=== PATIENT | female | born 1945 | race Caucasian/White ===

== ENCOUNTER → 2018-02-23 01:55 | Outpatient (CLI) | payer OTHER, SELFPAY ==
[2018-02-23 17:04] LABS: CREATININE 1.33 mg/dL (0.55-1.02); Estimated GFR 39.33 (mL/min/1.73m2)
[2018-02-23 17:10] LABS: Iron 48 ug/dL (50-175); Total Iron Binding Capacity 293 ug/dL (250-450); Transferrin Sat 16 % (15-50)
[2018-02-23 17:24] LABS: Ferritin 55 ng/mL (8-388)
== END ==
PROVIDERS: PCP Family Medicine; Visit Provider Nurse Practitioner
DX: I10 Essential (primary) hypertension (principal); E11.9 Type 2 diabetes mellitus without complications; D64.9 Anemia, unspecified
CPT/HCPCS: 36415; 82565; 82728; 83036; 83540; 83550; 84132

== ENCOUNTER 2018-03-16 01:38 | Outpatient (CLI) | payer OTHER, SELFPAY ==
[2018-03-16 12:54] LABS: Iron 53 ug/dL (50-175); Total Iron Binding Capacity 293 ug/dL (250-450); Transferrin Sat 18 % (15-50)
[2018-03-16 13:07] LABS: BUN 17 mg/dL (7-18); Estimated GFR 48.96 (mL/min/1.73m2); Ferritin 49 ng/mL (8-388)
== END 2018-03-16 01:58 ==
PROVIDERS: PCP Family Medicine; Visit Provider Family Medicine
DX: N28.9 Disorder of kidney and ureter, unspecified (principal); D64.9 Anemia, unspecified
CPT/HCPCS: 36415; 84520; 82565; 82728; 83540; 83550

== ENCOUNTER 2018-05-16 09:48 | Day surgery (SDC) | payer OTHER, SELFPAY ==
--- NOTE | 2018-05-15 21:05 | POEE_ITS ---
History of Present Illness Chief Complaint: Progressive decreased vision, right eye Narrative: The patient is a 72-year-old female with history of progressive decreased vision in both eyes at distance and near. She has significant difficulty when reading and using the computer. On examination she was noted to have moderate bilateral nuclear and cortical cataracts with visual acuity of 20/50 OD, 20/25 OS. She has significant glare disability, particularly in the right eye. The option of cataract surgery was offered to the patient and she wished to proceed. NOTE: The Chief Complaint, HPI, Past Medical History, Past Surgical History, Family History, Social History, Medications, and complete Ophthalmic Exam with detailed Assessment and Plan have already been documented in the patient's outpatient ophthalmic record and are not covered again in detail here. PFSH Family History Mother Diabetes Essential hypertension Personal history of malignant neoplasm Heart disease Hyperlipidemia Cerebrovascular accident Father No problems noted. Sister Essential hypertension Hyperlipidemia Asthma Brother Alcohol abuse Essential hypertension Personal history of malignant neoplasm Depression Hyperlipidemia Grandfather Personal history of malignant neoplasm Heart disease Asthma Grandfather Heart disease Grandmother Heart disease Grandmother Essential hypertension Heart disease Hyperlipidemia Cerebrovascular accident Brother Diabetes Essential hypertension CHF (congestive heart failure) Heart disease Hyperlipidemia COPD (chronic obstructive pulmonary disease) Asthma Daughter Depression Medical History Nuclear sclerotic cataract of right eye (Acute) Cortical cataract of right eye (Acute) Adenomatous polyp of colon Anxiety Avila esophagus Hyperlipidemia Hypertension Hypothyroid Obesity, Class III, 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 skin cancer Social History marital status: SINGLE current occupational status: employed 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 Smoking/Tobacco Use Status: Never alcohol intake: never substance use type: does not use seatbelt use: always Surgical History Biopsy of breast section Endometrial Biopsy (~2006) Meds Home Medications Medication Instructions Recorded Confirmed Type Cpap 12/24/12 04/29/18 History acetaminophen [Tylenol Extra 500 mg PO PRN 12/24/12 05/11/18 History Strength] aspirin [Ecotrin Low Strength] 81 mg PO DAILY tab-cap 12/24/12 05/11/18 History ibuprofen 2 cap PO PRN tab-cap 12/24/12 05/11/18 History vitamin E (dl, acetate) 400 unit PO DAILY 12/24/12 05/11/18 History cholecalciferol (vitamin D3) 2,000 unit PO DAILY 07/18/15 05/11/18 History [Vitamin D-3] magnesium oxide 400 mg PO DAILY 01/21/16 05/11/18 History blood-glucose meter [Freestyle #1 kit 04/14/17 04/29/18 Rx Lite Meter] levothyroxine 88 mcg PO DAILY #90 tab-cap 07/13/17 05/11/18 Rx omeprazole 20 mg PO BID #180 tab-cap 07/13/17 05/11/18 Rx pravastatin 40 mg PO QHS #90 tab-cap 07/13/17 05/11/18 Rx sertraline 100 mg PO DAILY #90 tab-cap 07/13/17 05/11/18 Rx furosemide 20 mg PO DAILY #90 tab-cap 01/11/18 05/11/18 Rx Lorazepam 1 mg PO HS PRN #90 tab 01/21/18 05/11/18 Clinic multivitamin with iron tablet 1 tab PO DAILY #90 tab 03/17/18 05/11/18 Rx blood sugar diagnostic strips #100 strip 04/13/18 04/29/18 Rx lisinopril 10 mg tablet 10 mg PO DAILY #90 tab-cap 04/13/18 05/11/18 Rx metformin 500 mg tablet 500 mg PO BID #180 tab-cap 04/13/18 05/11/18 Rx ropinirole 1 mg tablet 1 mg PO HS tab 04/13/18 05/11/18 History Allergies Allergy/AdvReac Type Severity Reaction Status Date / Time atorvastatin AdvReac Severe SEVERE LEG Unverified 05/11/18 11:37 PAIN iron AdvReac Severe SEVERE ABD Unverified 05/11/18 11:37 PAIN codeine AdvReac Intermediate H/A Unverified 05/11/18 11:37 Exam OCULAR EXAM:: Visual acuity at distance: Corrected visual acuity 20/50 right eye , 20/25 left eye Pupils: Pupils equal, round, and reactive without afferent pupillary defect IOP: 22 OU Extraocular Motility: Normal Pertinent Slit Lamp Findings: Significant for 2+ nuclear and 2+ cortical cataract OU. Anterior segment otherwise normal. Dilated Funduscopic Examination: Disc cupping is 0.2 OU with good color. The optic nerves have good perfusion and normal color. The retinal vasculature is normal without significant tortuosity or abnormality. The maculas are normal in appearance with normal contour and foveal reflex appropriate for age. The peripheral retina and vitreous are normal. BRIGHTNESS ACUITY TESTING (BAT):: Off right eye 20/50 Low: 20/60 Medium: 20/80 High: 20/200 Assessment and Plan (1) Cortical cataract of right eye: Current visit: No Status: Acute Assessment: Visually significant cataract, right eye. Plan: Cataract extraction with intraocular lens implantation, right eye (2) Nuclear sclerotic cataract of right eye: Current visit: No Status: Acute Assessment: Visually significant cataract, right eye. Plan: Cataract extraction with intraocular lens implantation, right eye Note: NOTE:: The details of the planned surgery, including the risks, indications, limitations,expectations,outcome and possible complications were explained to the patient. The patient understands the complications including, but not limited to: infection, hemorrhage, posterior dislocation of the lens or nuclear fragments which may require the intervention of a vitreoretinal surgeon, possible loss of the eye, or from anesthetic complications. The patient has been made aware of the option of not having surgery, that vision following surgery may not be equal to that prior to surgery, and that the planned surgery may not achieve the intended results. Following this discussion, which the patient appeared to understand, the patient wishes to proceed with cataract surgery with lens implantation of the affected eye to improve and maximize vision.
[2018-05-16 09:52] VITALS: BP 146/76; PULSE 80; RESP 18; TEMP 36.4; O2SAT 97
[2018-05-16] MEDS: Lidocaine 2% Jelly 6 ML SYR (11:00)
[2018-05-16] MEDS: Lidocaine 1% Pres-Free 5 ML VIAL (11:03)
[2018-05-16] MEDS: Balanced Salt Soln.-PLUS 500 ML BAG (11:03)
[2018-05-16] MEDS: Povidone-Iodine Ophth 30 ML BTL (11:12)
--- NOTE | 2018-05-16 11:23 | W.PM.DSUDISC ---
Discharge Plan Discharge Details Reason For Visit: CATARACT OD Attending Provider: Mukesh Prado Primary Care Provider: Navid Avendaño. Home Meds and New Rx's Prescriptions: No Action ropinirole 1 mg tablet 1 mg PO HS RF: 0 metformin 500 mg tablet 500 mg PO BID Qty: 180 RF: 4 lisinopril 10 mg tablet 10 mg PO DAILY Qty: 90 RF: 4 blood sugar diagnostic [FreeStyle Lite Strips] strip 1 strip Miscellaneous DAILY Qty: 100 RF: 4 ibuprofen 200 MG capsule 2 cap PO PRN RF: 0 aspirin [Ecotrin Low Strength] 81 MG tablet,delayed release (DR/EC) 81 mg PO DAILY RF: 0 acetaminophen [Tylenol Extra Strength] 500 MG tablet 500 mg PO PRN RF: 0 vitamin E (dl, acetate) 400 UNIT capsule 400 unit PO DAILY RF: 0 CPAP RF: 0 cholecalciferol (vitamin D3) [Vitamin D3] 2,000 UNIT capsule 2,000 unit PO DAILY RF: 0 magnesium oxide 400 MG capsule 400 mg PO DAILY RF: 0 blood-glucose meter [FreeStyle Lite Meter] 1 EACH kit 1 ea Miscellaneous DAILY Qty: 1 RF: 0 pravastatin 40 MG tablet 40 mg PO QHS Qty: 90 RF: 4 sertraline 100 MG tablet 100 mg PO DAILY Qty: 90 RF: 4 levothyroxine 88 MCG tablet 88 mcg PO DAILY Qty: 90 RF: 4 omeprazole 20 MG capsule,delayed release(DR/EC) 20 mg PO BID Qty: 180 RF: 4 furosemide 20 MG tablet 20 mg PO DAILY Qty: 90 RF: 3 Lorazepam 1 MG tablet 1 mg PO HS PRNQty: 90 RF: 0 multivitamin with iron tablet 1 tab PO DAILY Qty: 90 RF: 3 Discharge Instructions Stand Alone Forms: Post-op Topical Cataract, Nathanael Esquivel (DSU) DS: Diagnosis Discharge Diagnosis (1) Cortical cataract of right eye: Status: Resolved (2) Nuclear sclerotic cataract of right eye: Status: Resolved (3) Status post cataract extraction and insertion of intraocular lens of right eye: Status: Chronic
--- NOTE | 2018-05-16 11:29 | ROE_ITS ---
Date of service: 05/16/18 Time of Service: : Operative Note DATE OF PROCEDURE: 05/16/18 PRE-OP DIAGNOSIS: Cataract, right eye POST-OP DIAGNOSIS: same SURGEON: Mukesh Prado ANESTHESIA: MAC and local (sub-tenon's anesthetic infiltration) PATHOLOGY: none sent COMPLICATIONS: None Patient was transported to: same day Patient's condition: stable Implants: Emiliano and Emil[employer] Vision / [employer] Opt[employer] Tecnis ZCB00 Indications: Progressive decreased vision due to cataract, right eye Procedure Description: CATARACT SURGERY OPERATIVE REPORT PREOPERATIVE DIAGNOSIS: Nuclear/cortical cataract, right eye POSTOPERATIVE DIAGNOSIS: Same OPERATION: Cataract extraction using phacoemulsification with posterior chamber intraocular lens implant, right eye. IOL: IOL Home Support Worker/Model: [employer] Vision / ROSALINO Tecnis ZCB00 IOL Power: + 19.0 diopters IOL Serial Number: [id number] Optic Diameter: 6.0mm Haptic/Overall Diameter: 13.0mm PHACO INFO: [email or web address] Vision System with OZil and Active Fluidics Cumulative Dispersed Energy (CDE): 4.23 seconds SURGEON: Mukesh Prado MD, VANESSA ANESTHESIA: Monitored Anesthesia Care (MAC), with local sub-tenon's anesthetic infiltration COMPLICATIONS: None SPECIMENS: None INDICATIONS FOR PROCEDURE: The patient is a 73-year-old female with history of progressive decreased vision in her right eye with corrected visual acuity of 20/50. She was noted to have a moderate nuclear and cortical cataract in the right eye. The option of cataract surgery was offered to the patient and she felt she was symptomatic enough that she wished to proceed. PROCEDURE: The correct surgical eye was identified and marked as the right eye and the pupil was dilated in the preoperative area using mydriatics, cycloplegics, and NSAIDS (except in aspirin allergic patients). The dilated pupil size was 7.0 mm. Oral sedation was administered in the form of an Imprimis MKO Melt (midazolam 3mg/ketamine 25mg/ondansetron 2mg). The patient was brought to the operating room where cardiopulmonary monitoring was instituted and surgical time-out was performed, confirming the correct operative eye and IOL power. Topical anesthesia was administered and ophthalmic povidone-iodine 5% was instilled into the conjunctival fornices. Lidocaine gel was applied to the cornea and the merritt-ocular area was prepped with Betadine 10% solution and draped in the usual sterile fashion for intraocular surgery. Steri-strips were used to cover the lashes and lid margins and an adhesive eye drape was placed. Care was taken to isolate the lashes and lid margins under the Steri-strips and adhesive eye drape. A lid speculum was placed between the lids of the operative eye and the Johnnie-Tyron operating microscope was maneuvered into position. Lj scissors were then used to make a conjunctival buttonhole approximately 6mm posterior to the limbus in the inferonasal quadrant. Blunt dissection was carried out to expose bare sclera, and a blunt-tipped sub-tenon? s anesthesia cannula was introduced and passed posteriorly along the globe where non-preserved plain lidocaine was injected into posterior sub-Tenon?s space. A sideport knife was used to make a paracentesis port at the 7:00 postion and the anterior chamber was filled with Healon GV. A 2.4mm keratome knife was used to create a half-thickness groove at the limbus and then to construct a three-plane near-clear corneal tunnel extending 2.0mm into clear cornea at the 10:00 position. A flap was raised on the anterior capsule and capsulorhexis forceps were used to complete a continuous curvilinear capsulorhexis of 5.0 mm. Balanced salt solution was then used to perform cortical cleaving hydrodissection and nuclear hydrodelineation until the lens could be freely rotated within the capsular bag. The lens nucleus was then disassembled and removed within the capsular bag and iris plane using phacoemulsification. Residual cortical material was removed using the 45-degree angled silicone I/A tip with 0.3mm port. The posterior capsule was carefully polished to remove as much residual lens epithelial cells as safely possible. The capsular bag was then inflated and the anterior chamber deepened with viscoelastic. The lens implant described above was inserted into the capsular bag using the ROSALINO Tribe Injector. A Kuglen hook was used to dial the IOL into position. Residual viscoelastic was then removed first from posterior to the IOL, then from the anterior chamber using the I/A handpiece. The lens implant was noted to center nicely within the capsular bag. The incisions were stromally hydrated , and the anterior chamber was reformed using BSS. Then 0.4cc of moxifloxacin 1.5mg/ml were injected into the capsular bag and anterior chamber. The incisions were checked with a Weck spear and found to be secure. Several drops of ophthalmic povidone-iodine 5% were then applied to the eye followed by two drops of Imprimis combination moxifloxacin/dexamethasone solution. The drapes were removed and a clear plastic protective eye shield was placed over the eye. The patient was then returned to [facility] Day Surgery in stable condition.
[2018-05-16 11:44] VITALS: BP 119/72; PULSE 80; RESP 20; TEMP 37.4; O2SAT 98
== END 2018-05-16 12:00 | disposition home or self-care (01) ==
LOC: SUR 09:49
PROVIDERS: PCP Family Medicine; Visit Provider Ophthalmology
PROC: (CPT 66984; principal; 2018-05-16 12:30)
DX: H25.811 Combined forms of age-related cataract, right eye (principal); E11.9 Type 2 diabetes mellitus without complications; Z79.84 Long term (current) use of oral hypoglycemic drugs; G47.33 Obstructive sleep apnea (adult) (pediatric); I10 Essential (primary) hypertension
CPT/HCPCS: 66984; V2632

== ENCOUNTER 2018-05-30 06:02 | Day surgery (SDC) | payer OTHER, SELFPAY ==
--- NOTE | 2018-05-28 07:57 | POEE_ITS ---
History of Present Illness Chief Complaint: Progressive decreased vision, left eye Narrative: The patient is a 73-year-old female with history of progressive decreased vision in both eyes at both distance and near. She has significant difficulty reading a computer screen. On examination she was noted to have bilateral nuclear and cortical cataracts with visual acuity of 20/50 in the right eye, 20/30 in the left eye. The option of cataract surgery was offered to the patient and she felt she was significantly symptomatic that she wished to proceed. NOTE: The Chief Complaint, HPI, Past Medical History, Past Surgical History, Family History, Social History, Medications, and complete Ophthalmic Exam with detailed Assessment and Plan have already been documented in the patient's outpatient ophthalmic record and are not covered again in detail here. PFSH Family History Mother Diabetes Essential hypertension Personal history of malignant neoplasm Heart disease Hyperlipidemia Cerebrovascular accident Father No problems noted. Sister Essential hypertension Hyperlipidemia Asthma Brother Alcohol abuse Essential hypertension Personal history of malignant neoplasm Depression Hyperlipidemia Grandfather Personal history of malignant neoplasm Heart disease Asthma Grandfather Heart disease Grandmother Heart disease Grandmother Essential hypertension Heart disease Hyperlipidemia Cerebrovascular accident Brother Diabetes Essential hypertension CHF (congestive heart failure) Heart disease Hyperlipidemia COPD (chronic obstructive pulmonary disease) Asthma Daughter Depression Medical History Cortical cataract of left eye (Acute) Nuclear sclerotic cataract of left eye (Acute) Cortical cataract of right eye (Resolved) Nuclear sclerotic cataract of right eye (Resolved) Adenomatous polyp of colon Anxiety Avila esophagus Hyperlipidemia Hypertension Hypothyroid Obesity, Class III, 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 skin cancer Social History 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 occupational status: employed 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 Smoking/Tobacco Use Status: Never alcohol intake: never substance use type: does not use seatbelt use: always Surgical History Status post cataract extraction and insertion of intraocular lens of right eye ( Chronic 05/16/18) Biopsy of breast section Endometrial Biopsy (~2006) Meds Home Medications Medication Instructions Recorded Confirmed Type Cpap 12/24/12 04/29/18 History acetaminophen [Tylenol Extra 500 mg PO PRN 12/24/12 05/11/18 History Strength] aspirin [Ecotrin Low Strength] 81 mg PO DAILY tab-cap 12/24/12 05/16/18 History ibuprofen 2 cap PO PRN tab-cap 12/24/12 05/11/18 History vitamin E (dl, acetate) 400 unit PO DAILY 12/24/12 05/11/18 History cholecalciferol (vitamin D3) 2,000 unit PO DAILY 07/18/15 05/11/18 History [Vitamin D-3] magnesium oxide 400 mg PO DAILY 01/21/16 05/11/18 History blood-glucose meter [Freestyle #1 kit 04/14/17 04/29/18 Rx Lite Meter] levothyroxine 88 mcg PO DAILY #90 tab-cap 07/13/17 05/16/18 Rx omeprazole 20 mg PO BID #180 tab-cap 07/13/17 05/16/18 Rx pravastatin 40 mg PO QHS #90 tab-cap 07/13/17 05/16/18 Rx sertraline 100 mg PO DAILY #90 tab-cap 07/13/17 05/16/18 Rx furosemide 20 mg PO DAILY #90 tab-cap 01/11/18 05/16/18 Rx Lorazepam 1 mg PO HS PRN #90 tab 01/21/18 05/11/18 Clinic multivitamin with iron tablet 1 tab PO DAILY #90 tab 03/17/18 05/11/18 Rx blood sugar diagnostic strips #100 strip 04/13/18 04/29/18 Rx lisinopril 10 mg tablet 10 mg PO DAILY #90 tab-cap 04/13/18 05/16/18 Rx metformin 500 mg tablet 500 mg PO BID #180 tab-cap 04/13/18 05/16/18 Rx ropinirole 1 mg tablet 1 mg PO HS tab 04/13/18 05/16/18 History Allergies Allergy/AdvReac Type Severity Reaction Status Date / Time atorvastatin AdvReac Severe SEVERE LEG Unverified 05/16/18 09:45 PAIN iron AdvReac Severe SEVERE ABD Unverified 05/16/18 09:45 PAIN codeine AdvReac Intermediate H/A Unverified 05/16/18 09:45 Exam OCULAR EXAM:: Visual acuity at distance: 20/40 right eye 20/30 left eye Pupils: Pupils equal, round, and reactive without afferent pupillary defect IOP: 22 OU Extraocular Motility: Normal Pertinent Slit Lamp Findings: Significant for pupils dilating to 6 mm OU. Well- positioned PCIOL OD with clear posterior capsule. 2+ nuclear/cortical cataract OS. Dilated Funduscopic Examination: Significant for disc cupping of 0.2 OU with good color. The optic nerves have good perfusion and normal color. The retinal vasculature is normal without significant tortuosity or abnormality. The maculas are normal in appearance with normal contour and foveal reflex appropriate for age. The peripheral retina and vitreous are normal. BRIGHTNESS ACUITY TESTING (BAT):: Off left eye 20/30 Low: 20/40 Medium: 20/50 High: 20/80 Assessment and Plan (1) Nuclear sclerotic cataract of left eye: Current visit: No Status: Acute Assessment: Visually significant cataract, left eye. Plan: Cataract extraction with intraocular lens implantation, left eye (2) Cortical cataract of left eye: Current visit: No Status: Acute Assessment: Visually significant cataract, left eye. Plan: Cataract extraction with intraocular lens implantation, left eye Note: NOTE:: The details of the planned surgery, including the risks, indications, limitations,expectations,outcome and possible complications were explained to the patient. The patient understands the complications including, but not limited to: infection, hemorrhage, posterior dislocation of the lens or nuclear fragments which may require the intervention of a vitreoretinal surgeon, possible loss of the eye, or from anesthetic complications. The patient has been made aware of the option of not having surgery, that vision following surgery may not be equal to that prior to surgery, and that the planned surgery may not achieve the intended results. Following this discussion, which the patient appeared to understand, the patient wishes to proceed with cataract surgery with lens implantation of the affected eye to improve and maximize vision.
[2018-05-30 06:10] VITALS: BP 127/67; PULSE 79; RESP 19; TEMP 36.8; O2SAT 95
[2018-05-30] MEDS: Tetracaine 0.5% 4 ML BTL OS ×4 (06:32→07:30)
[2018-05-30] MEDS: Tropicam./Phenyleph. (1/2.5%) 5 ML BTL OS ×3 (06:32→06:50)
[2018-05-30] MEDS: Balanced Salt Soln.-PLUS 500 ML BAG (07:37)
[2018-05-30] MEDS: Lidocaine 2% Jelly 6 ML SYR (07:39)
[2018-05-30] MEDS: Lidocaine 1% Pres-Free 5 ML VIAL (07:40)
[2018-05-30] MEDS: Povidone-Iodine Ophth 30 ML BTL (07:52)
--- NOTE | 2018-05-30 07:58 | W.PM.DSUDISC ---
Discharge Plan Discharge Details Reason For Visit: CATARACT OS Attending Provider: Mukesh Prado Primary Care Provider: Navid Avendaño. Home Meds and New Rx's Prescriptions: No Action ropinirole 1 mg tablet 1 mg PO HS RF: 0 metformin 500 mg tablet 500 mg PO BID Qty: 180 RF: 4 lisinopril 10 mg tablet 10 mg PO DAILY Qty: 90 RF: 4 blood sugar diagnostic [FreeStyle Lite Strips] strip 1 strip Miscellaneous DAILY Qty: 100 RF: 4 ibuprofen 200 MG capsule 2 cap PO PRN RF: 0 aspirin [Ecotrin Low Strength] 81 MG tablet,delayed release (DR/EC) 81 mg PO DAILY RF: 0 acetaminophen [Tylenol Extra Strength] 500 MG tablet 500 mg PO PRN RF: 0 vitamin E (dl, acetate) 400 UNIT capsule 400 unit PO DAILY RF: 0 CPAP RF: 0 cholecalciferol (vitamin D3) [Vitamin D3] 2,000 UNIT capsule 2,000 unit PO DAILY RF: 0 magnesium oxide 400 MG capsule 400 mg PO DAILY RF: 0 blood-glucose meter [FreeStyle Lite Meter] 1 EACH kit 1 ea Miscellaneous DAILY Qty: 1 RF: 0 pravastatin 40 MG tablet 40 mg PO QHS Qty: 90 RF: 4 sertraline 100 MG tablet 100 mg PO DAILY Qty: 90 RF: 4 levothyroxine 88 MCG tablet 88 mcg PO DAILY Qty: 90 RF: 4 omeprazole 20 MG capsule,delayed release(DR/EC) 20 mg PO BID Qty: 180 RF: 4 furosemide 20 MG tablet 20 mg PO DAILY Qty: 90 RF: 3 Lorazepam 1 MG tablet 1 mg PO HS PRNQty: 90 RF: 0 multivitamin with iron tablet 1 tab PO DAILY Qty: 90 RF: 3 Discharge Instructions Stand Alone Forms: Post-op Topical Cataract, Nathanael Esquivel (DSU) DS: Diagnosis Discharge Diagnosis (1) Nuclear sclerotic cataract of left eye: Status: Resolved (2) Cortical cataract of left eye: Status: Resolved (3) Status post cataract extraction and insertion of intraocular lens of left eye: Status: Chronic
--- NOTE | 2018-05-30 07:59 | W.PM.OP ---
Date of service: 05/30/18 Time of Service: 07:59 Operative Note DATE OF PROCEDURE: 05/30/18 PRE-OP DIAGNOSIS: Cataract, left eye POST-OP DIAGNOSIS: same PROCEDURE: Cataract extraction using phacoemulsification with intraocular lens implant, left eye SURGEON: Mukesh Prado ANESTHESIA: MAC and local (sub-tenon's anesthetic infiltration) PATHOLOGY: none sent COMPLICATIONS: None Patient was transported to: same day Patient's condition: stable Implants: Emiliano and Emiliano Vision / [employer] Opt[employer] Tecnis [id number] Indications: Progressive decreased vision due to cataract, left eye Procedure Description: CATARACT SURGERY OPERATIVE REPORT PREOPERATIVE DIAGNOSIS: Nuclear/cortical cataract, left POSTOPERATIVE DIAGNOSIS: Same OPERATION: Cataract extraction using phacoemulsification with posterior chamber intraocular lens implant, left eye. IOL: IOL Social Media Marketer/Model: J&J Vision / ROSALINO Tecnis ZCB00 IOL Power: + 18.50 diopters IOL Serial Number: [id number] Optic Diameter: 6.0mm Haptic/Overall Diameter: 13.0mm PHACO INFO: Cisco LOYAL3urion Vision System with OZil and Active Fluidics Cumulative Dispersed Energy (CDE): 8.2 seconds SURGEON: Mukesh Prado MD, VANESSA ANESTHESIA: Monitored Anesthesia Care (MAC), with local sub-tenon's anesthetic infiltration COMPLICATIONS: None SPECIMENS: None INDICATIONS FOR PROCEDURE: The patient is a 73-year-old female with history of progressive decreased vision in both eyes secondary to the development of bilateral nuclear and cortical cataracts. She has already undergone cataract surgery in her right eye and is doing well postoperatively. She now presents for cataract surgery of the left eye. PROCEDURE: The correct surgical eye was identified and marked as the left eye and the pupil was dilated in the preoperative area using mydriatics and cycloplegics. The dilated pupil size was 7.5 mm. Oral sedation was administered in the form of an Imprimis MKO Melt (midazolam 3mg/ketamine 25mg/ondansetron 2mg). The patient was brought to the operating room where cardiopulmonary monitoring was instituted and surgical time-out was performed, confirming the correct operative eye and IOL power. Topical anesthesia was administered and ophthalmic povidone-iodine 5% was instilled into the conjunctival fornices. Lidocaine gel was applied to the cornea and the merritt-ocular area was prepped with Betadine 10% solution and draped in the usual sterile fashion for intraocular surgery. Steri-strips were used to cover the lashes and lid margins and an adhesive eye drape was placed. Care was taken to isolate the lashes and lid margins under the Steri-strips and adhesive eye drape. A lid speculum was placed between the lids of the operative eye and the Johnnie-Tyron operating microscope was maneuvered into position. Lj scissors were then used to make a conjunctival buttonhole approximately 6mm posterior to the limbus in the inferonasal quadrant. Blunt dissection was carried out to expose bare sclera, and a blunt-tipped sub-tenon?s anesthesia cannula was introduced and passed posteriorly along the globe where non-preserved plain lidocaine was injected into posterior sub-Tenon?s space. A sideport knife was used to make a paracentesis port at the 12:00 postion and the anterior chamber was filled with Healon GV. A 2.4mm keratome knife was used to create a half-thickness groove at the limbus and then to construct a three-plane near-clear corneal tunnel extending 2.0mm into clear cornea at the 3:00 position. A flap was raised on the anterior capsule and capsulorhexis forceps were used to complete a continuous curvilinear capsulorhexis of 5.5 mm. Balanced salt solution was then used to perform cortical cleaving hydrodissection and nuclear hydrodelineation until the lens could be freely rotated within the capsular bag. The lens nucleus was then disassembled and removed within the capsular bag and iris plane using phacoemulsification. Residual cortical material was removed using the 45-degree angled silicone I/A tip with 0.3mm port. The posterior capsule was carefully polished to remove as much residual lens epithelial cells as safely possible. The capsular bag was then inflated and the anterior chamber deepened with viscoelastic. The lens implant described above was inserted into the capsular bag using the ROSALINO [place] Injector. A Kuglen hook was used to dial the IOL into position. Residual viscoelastic was then removed first from posterior to the IOL, then from the anterior chamber using the I/A handpiece. The lens implant was noted to center nicely within the capsular bag. The incisions were stromally hydrated, and the anterior chamber was reformed using BSS. Then 0.4cc of moxifloxacin 1.5mg/ml were injected into the capsular bag and anterior chamber. The incisions were checked with a Weck spear and found to be secure. Several drops of ophthalmic povidone-iodine 5% were then applied to the eye followed by two drops of Imprimis combination moxifloxacin/dexamethasone solution. The drapes were removed and a clear plastic protective eye shield was placed over the eye. The patient was then returned to Same Day Surgery in stable condition.
--- NOTE | 2018-05-30 08:02 | ROE_ITS ---
Date of service: 05/30/18 Time of Service: 07:59 Operative Note DATE OF PROCEDURE: 05/30/18 PRE-OP DIAGNOSIS: Cataract, left eye POST-OP DIAGNOSIS: same PROCEDURE: Cataract extraction using phacoemulsification with intraocular lens implant, left eye SURGEON: Mukesh Prado ANESTHESIA: MAC and local (sub-tenon's anesthetic infiltration) PATHOLOGY: none sent COMPLICATIONS: None Patient was transported to: same day Patient's condition: stable Implants: Emiliano and Emiliano Vision / [employer] Opt[employer] Tecnis ZCB00 Indications: Progressive decreased vision due to cataract, left eye Procedure Description: CATARACT SURGERY OPERATIVE REPORT PREOPERATIVE DIAGNOSIS: Nuclear/cortical cataract, left POSTOPERATIVE DIAGNOSIS: Same OPERATION: Cataract extraction using phacoemulsification with posterior chamber intraocular lens implant, left eye. IOL: IOL Overhead Worker/Model: J&J Vision / ROSALINO Tecnis ZCB00 IOL Power: + 18.50 diopters IOL Serial Number: [id number] Optic Diameter: 6.0mm Haptic/Overall Diameter: 13.0mm PHACO INFO: Cisco Eduoraurion Vision System with OZil and Active Fluidics Cumulative Dispersed Energy (CDE): 8.2 seconds SURGEON: Mukesh Prado MD, VANESSA ANESTHESIA: Monitored Anesthesia Care (MAC), with local sub-tenon's anesthetic infiltration COMPLICATIONS: None SPECIMENS: None INDICATIONS FOR PROCEDURE: The patient is a 73-year-old female with history of progressive decreased vision in both eyes secondary to the development of bilateral nuclear and cortical cataracts. She has already undergone cataract surgery in her right eye and is doing well postoperatively. She now presents for cataract surgery of the left eye. PROCEDURE: The correct surgical eye was identified and marked as the left eye and the pupil was dilated in the preoperative area using mydriatics and cycloplegics. The dilated pupil size was 7.5 mm. Oral sedation was administered in the form of an Imprimis MKO Melt (midazolam 3mg/ketamine 25mg/ ondansetron 2mg). The patient was brought to the operating room where cardiopulmonary monitoring was instituted and surgical time-out was performed, confirming the correct operative eye and IOL power. Topical anesthesia was administered and ophthalmic povidone-iodine 5% was instilled into the conjunctival fornices. Lidocaine gel was applied to the cornea and the merritt-ocular area was prepped with Betadine 10% solution and draped in the usual sterile fashion for intraocular surgery. Steri-strips were used to cover the lashes and lid margins and an adhesive eye drape was placed. Care was taken to isolate the lashes and lid margins under the Steri-strips and adhesive eye drape. A lid speculum was placed between the lids of the operative eye and the Johnnie-Tyron operating microscope was maneuvered into position. Lj scissors were then used to make a conjunctival buttonhole approximately 6mm posterior to the limbus in the inferonasal quadrant. Blunt dissection was carried out to expose bare sclera, and a blunt-tipped sub-tenon? s anesthesia cannula was introduced and passed posteriorly along the globe where non-preserved plain lidocaine was injected into posterior sub-Tenon?s space. A sideport knife was used to make a paracentesis port at the 12:00 postion and the anterior chamber was filled with Healon GV. A 2.4mm keratome knife was used to create a half-thickness groove at the limbus and then to construct a three-plane near-clear corneal tunnel extending 2.0mm into clear cornea at the 3:00 position. A flap was raised on the anterior capsule and capsulorhexis forceps were used to complete a continuous curvilinear capsulorhexis of 5.5 mm. Balanced salt solution was then used to perform cortical cleaving hydrodissection and nuclear hydrodelineation until the lens could be freely rotated within the capsular bag. The lens nucleus was then disassembled and removed within the capsular bag and iris plane using phacoemulsification. Residual cortical material was removed using the 45-degree angled silicone I/A tip with 0.3mm port. The posterior capsule was carefully polished to remove as much residual lens epithelial cells as safely possible. The capsular bag was then inflated and the anterior chamber deepened with viscoelastic. The lens implant described above was inserted into the capsular bag using the ROSALINO [place] Injector. A Kuglen hook was used to dial the IOL into position. Residual viscoelastic was then removed first from posterior to the IOL, then from the anterior chamber using the I/A handpiece. The lens implant was noted to center nicely within the capsular bag. The incisions were stromally hydrated , and the anterior chamber was reformed using BSS. Then 0.4cc of moxifloxacin 1.5mg/ml were injected into the capsular bag and anterior chamber. The incisions were checked with a Weck spear and found to be secure. Several drops of ophthalmic povidone-iodine 5% were then applied to the eye followed by two drops of Imprimis combination moxifloxacin/dexamethasone solution. The drapes were removed and a clear plastic protective eye shield was placed over the eye. The patient was then returned to Same Day Surgery in stable condition.
[2018-05-30 08:25] VITALS: BP 111/69; PULSE 74; RESP 17; TEMP 37.3; O2SAT 98
== END 2018-05-30 08:30 | disposition home or self-care (01) ==
LOC: SUR 06:02
PROVIDERS: PCP Family Medicine; Visit Provider Ophthalmology
PROC: (CPT 66984; principal; 2018-05-30 07:30)
DX: H25.812 Combined forms of age-related cataract, left eye (principal); Z98.41 Cataract extraction status, right eye; Z96.1 Presence of intraocular lens; E11.9 Type 2 diabetes mellitus without complications; Z79.84 Long term (current) use of oral hypoglycemic drugs; G47.33 Obstructive sleep apnea (adult) (pediatric); I10 Essential (primary) hypertension
CPT/HCPCS: 66984; V2632

== ENCOUNTER 2018-07-04 14:55 | Outpatient (REF) | payer OTHER, SELFPAY ==
--- NOTE | 2018-07-04 13:51 | SKI_PTH ---
PATIENT: Myesha Santizo LOC: [facility] U#:[id number] AGE/SX: 73/F ROOM: RE07/04/[address]: Elio Hatfield DO : 1945 BED: DIS: 07/04/2018 SPEC #: [id number] RECD: 07/06/18 12:49 STATUS: CELSO REQ #: [id number] TERA: 07/04/18 13:[address]: Elio Hatfield DEPT: Surgical Specimen RECD BY: Violet Fairchild ENTERED: 07/06/18 12:49 SP TYPE: RACHEL KUMARI DR: Navid Avendaño MD Tissues: 1 - SKIN BIOPSY(SHAVE/PUNCH) Procedures: SKIN LEVEL 4 Comments: [id number]
== END 2018-07-04 15:15 ==
LOC: LBN 14:55
PROVIDERS: PCP Family Medicine; Visit Provider Otolaryngology Otolaryngology/Facial Plastic Surgery
DX: L57.0 Actinic keratosis (principal); L73.8 Other specified follicular disorders; Z85.828 Personal history of other malignant neoplasm of skin
CPT/HCPCS: 88305

== ENCOUNTER 2018-07-07 08:18 | Outpatient (CLI) | payer OTHER, SELFPAY ==
[2018-07-07 12:16] LABS: Hemoglobin A1C 6.9 % (4.5-6.2)
[2018-07-07 12:53] LABS: CREATININE 1.15 mg/dL (0.55-1.02); Estimated GFR 46.38 (mL/min/1.73m2); TSH (W/Ref FT4) 3.03 uIU/mL (0.358-3.74)
== END 2018-07-07 08:38 ==
PROVIDERS: PCP Family Medicine; Visit Provider Family Medicine
DX: E03.9 Hypothyroidism, unspecified (principal); E11.9 Type 2 diabetes mellitus without complications
CPT/HCPCS: 36415; 82565; 83036; 84443

== ENCOUNTER 2018-08-01 00:06 | Outpatient (CLI) | payer OTHER, SELFPAY ==
--- NOTE | 2018-08-01 06:57 | MERGEMPI_ITS ---
*[facility]* *[facility]* [address] [place] [address] Myocardial Perfusion Imaging - SPECT Regadenoson Date of study: 08/01/2018 *PATIENT PRESENTATION* Height: 152.4cm (60in) Blood Pressure: Weight: 105.9kg (233lb) BSA: 2.18m^2 Referring physician: Davi Cummins MD Ordering physician: Navid Avendaño Impressions: Normal perfusion by Tc99m Sestamibi Imaging. Summary: 1. Myocardial perfusion imaging: No myocardial perfusion defects noted. Findings support breast shadow (moderate size / intensity fixed anterior defect, breast shadow on raw images, defect resolves with attenuation correction). 2. The calculated left ventricular ejection fraction after stress: 59%. No left ventricular regional motion abnormality. Indication: R07.9. History: REASON FOR TESTING: PATIENT HAS BEEN HAVING MID STERNAL CHEST PAIN APPROXIMATELY ONCE A MONTH OVER THE LAST 6 MONTHS. SHE DENIES ANY OTHER ASSCOCIATED SYMPTOMS. SHE DENIES CHEST PAIN/PRESSURE UPON ARRIVAL TODAY. SIGNIFICANT PAST MEDICAL HISTORY: BARRETTS ESOPHAGUS. SMOKING STATUS: NEVER EXERCISE ROUTINE: LIMITED ADL'S. Risk factors: Family history of coronary artery disease. Hypertension. Diabetes mellitus. Obesity. Dyslipidemia. Cholesterol: 187mg/dl. HDL: 53mg/dl. LDL: 121mg/dl. Triglycerides: 128mg/dl. ALLERGIES: ATORVASTATIN, IRON, CODEINE. MEDICATIONS: ACETAMINOPHEN 325-650 MG PRN, ASPIRIN 81 MG DAILY, IBUPROFEN 400 MG PRN, VITAMIN E 400 DAILY, VITAMIN D 2000 UNITS DAILY, MAGNESIUM OXIDE 400 MG DAILY, LEVOTHYROXINE 88 MCG DAILY, FUROSEMIDE 20 MG DAILY (HAS NOT USED THIS WEEK), MULTIVITAMIN WITH IRON DAILY, LISINOPRIL 10 MG DAILY, METFORMIN 500 MG DAILY, ROPINIROLE 1 MG HS, FLUOROURACIL 5% TOPICAL CREAM TOPICAL BID, KETORLAC 0.5% OPTHAMLMIC EVERY 4 HOURS, LORAZEPAM 1 MG PRN, OMEPRAZOLE 20 MG DAILY, PRAVASTATIN 40 MG HS, SERTRALINE 100 MG DAILY. Imaging Technique: Protocol: Regadenoson. Acquisition: Gated SPECT; 1 day - rest/stress. The patient was imaged in the supine position. Attenuation correction used. Isotope administration: - Rest. Tc[99m]-sestamibi. Dose: 11.1mCi. Injection time: 11:30 AM. Injection to stress time: 00:45. - Stress. Tc[99m]-sestamibi. Dose: 33mCi. Injection time: 01:05 PM. 1-2 min before end of exercise Baseline ECG: SINUS RHYTHM. HEART RATE 73 BPM. INVERTED T WAVES IN V1. Stress protocol: +--------+--+ + + !Stage !HR!BP (mmHg) !Comments ! +--------+--+ + + !Baseline!73!140/80 (100)! ! +--------+--+ + + !1 min !88!136/78 (97) !Inject Regadenoson.! +--------+--+ + + !3 min !85!140/76 (97) ! ! +--------+--+ + + !6 min !83!142/74 (97) ! ! +--------+--+ + + * Stress results: STRESS TEST ENDED IN 6 MINUTES 37 SECONDS. NORMAL HEART RATE AND BLOOD PRESSURE RESPONSE TO LEXISCAN INJECTION INVERTED T WAVES IN V1 LEAD AT BASELNE AND THROUGHOUT TEST. CHEST PRESSURE OF 4 OUT OF 10, TWO MINUTES AFTER LEXISCAN INJECTION. CHEST PRESSURE DOWN TO 1 OUT OF 10, FIVE MINUTES AFTER LEXISCAN INJECTION. CHEST PRESSURE COMPLETELY GONE 6 MINUTES AFTER LEXISCAN INJECTION. NO ECTOPY NO SIGNIFICANT ST SEGMENT CHANGES AFTER LEXISCAN INJECTION. The rate-pressure product for the peak heart rate and blood pressure was 13324fw Hg/min. Myocardial perfusion: Imaging information: gated. No myocardial perfusion defects noted. Ventricular Function (Wall Motion): The calculated left ventricular ejection fraction after stress: 59%. No left ventricular regional motion abnormality. Study data: Davi Cummins MD supervised and was readily available during the procedure. This study was interpreted by [facility]. Study status: Routine. Consent: The risks, benefits, and alternatives to the procedure were explained to the patient and informed consent was obtained. Procedure: Initial setup. A baseline ECG was recorded. Surface ECG leads and manual cuff blood pressure measurements were monitored. Heart sounds: Normal. Lung sounds: Normal. Regadenoson stress test. Stress testing was performed, with regadenoson by intravenous bolus, for a total dose of 0.4mgover 10.00sec, followed by a 5ml saline flush. The infusion was terminated due to per protocol. Study completion: All catheters inserted during the procedure were removed. The patient tolerated the procedure well and was discharged from the lab. Discharge: The patient left the laboratory in stable condition. Birthdate: Patient birthdate: 1945. Sex: Gender: female. Study date: Study date: 08/01/2018. Study time: 06:57 AM. Electronically signed by Davi Cummins MD 08/01/2018 16:16
[2018-08-01] MEDS: Regadenoson 0.4 MG/5 ML SYR IVP (12:10)
== END 2018-08-01 00:26 ==
PROVIDERS: PCP Family Medicine; Visit Provider Family Medicine
DX: R07.9 Chest pain, unspecified (principal); K22.70 Barrett's esophagus without dysplasia; I10 Essential (primary) hypertension; E11.9 Type 2 diabetes mellitus without complications; E78.5 Hyperlipidemia, unspecified; Z82.49 Family history of ischemic heart disease and other diseases of the circulatory system
CPT/HCPCS: 78452; 93016; 93018; 93017; J2785

== ENCOUNTER 2018-10-20 10:11 | Outpatient (CLI) | payer OTHER, SELFPAY ==
[2018-10-20 11:46] LABS: HGB 11.5 g/dL (12.0-15.5); Mean Corp. HGB Concentration 31.9 g/dL (32.0-36.0); Mean Corpuscular Volume 87.8 fL (80-95); Mean Platelet Volume 10.6 fL (8.0-11.0); Platelet Count 197 x1000/uL (130-400); RBC Distribution Width 14.9 % (11.7-14.6); White Blood Cell Count 7.46 k/cumm (4.4-10.8)
[2018-10-20 12:24] LABS: Hemoglobin A1C 6.9 % (4.5-6.2)
== END 2018-10-20 10:31 ==
PROVIDERS: PCP Family Medicine; Visit Provider Family Medicine
DX: E11.9 Type 2 diabetes mellitus without complications (principal)
CPT/HCPCS: 36415; 85027; 83036

== ENCOUNTER 2018-11-01 00:53 | Outpatient (CLI) | payer OTHER, SELFPAY ==
--- NOTE | 2018-11-01 09:18 | DI.COMBO_ITS ---
SYMPTOM/DIAGNOSIS:LT BREAST LUMP, N63.24 MAMMOGRAMS AND LEFT BREAST ULTRASOUND: Mammograms were interpreted according to the usual protocol including computer analysis with CAD system, tomosynthesis and C view imaging. Comparison is made with prior examinations. Breast density, Category C. The patient has bilateral breast biopsies. In the right breast there has been no change compared to the prior examinations. In the left breast. there has developed a lobulated, soft tissue mass in the lower inner quadrant. A left breast ultrasound was performed. There is a lobulated, hypoechoic vascular mass at the 8 o'clock position of the left breast measuring 2.7 by 2.7 by 1.5 cm. This does appear to correspond to the mammographic and palpable abnormality. IMPRESSION: Category 5, biopsy is recommended of the left breast mass. The findings were discussed with the patient and Dr Avendaño on the date of the examination. MQSA ASSESSMENT OF FINDINGS: Highly suspicious of malignancy. Biopsy should be obtained. Category 5. Patient will receive a letter notifying them of these results. Bi-RADS category C. The breasts are heterogeneously dense, which may obscure small masses.
== END 2018-11-01 01:13 ==
PROVIDERS: PCP Family Medicine; Visit Provider Family Medicine
DX: N63.24 Unspecified lump in the left breast, lower inner quadrant (principal); R92.8 Other abnormal and inconclusive findings on diagnostic imaging of breast
CPT/HCPCS: 76642; 77062; 77066; G0279

== ENCOUNTER 2018-11-11 10:39 | Outpatient (REF) | payer OTHER, SELFPAY ==
--- NOTE | 2018-11-10 09:58 | BREAST_PTH ---
PATIENT: Myesha Santizo LOC: [facility] U#:[id number] AGE/SX: 73/F ROOM: RE11/11/[address]: Minnie Bedolla MD : 1945 BED: DIS: 11/11/2018 SPEC #: [id number] RECD: 11/11/18 12:47 STATUS: CELSO REMaddy #: [id number] TERA: 11/10/18 09:[address]: Minine Bedolla DEPT: Surgical Specimen RECD BY: Violet Fairchild ENTERED: 11/11/18 12:48 SP TYPE: Breast OTHR DR: Navid Avendaño MD Tissues: 1 - BREAST BX NEEDLE Procedures: GROSS AND MICRO LEVEL 4 HERCEPTEST ESTROGEN/PROGESTERONE RECEPTOR IPEX STAIN Comments: [id number]
== END 2018-11-11 10:59 ==
LOC: LBN 10:39
PROVIDERS: PCP Family Medicine; Visit Provider Surgery
DX: C50.312 Malignant neoplasm of lower-inner quadrant of left female breast (principal); Z17.0 Estrogen receptor positive status [ER+]
CPT/HCPCS: 88305; 88360

== ENCOUNTER 2018-12-07 07:16 | Observation (INO) | payer OTHER, SELFPAY ==
[2018-12-07] VITALS (12 sets, daily range): BP systolic 102–126; BP diastolic 50–66; PULSE 67–79; RESP 1–21; TEMP 36.4–36.7; O2SAT 93–95
--- NOTE | 2018-12-07 07:04 | ROE_ITS ---
Date of service: 12/07/18 Time of Service: 12:09 Operative Note DATE OF PROCEDURE: 12/07/18 PRE-OP DIAGNOSIS: Left Invasive Ductal Breast Cancer POST-OP DIAGNOSIS: same PROCEDURE: Left mastectomy with SLN bx SURGEON: Minnie Bedolla CRUSHING MACHINE OPERATOR: Anais Amador ANESTHESIA: GETA (ASA 2) and regional (erector block) ESTIMATED BLOOD LOSS: 50 PATHOLOGY: other (Left Breast and SLN x3, medical skin) COMPLICATIONS: None Patient was transported to: PACU Patient's condition: stable Indications: Mrs. Santizo is a pleasant 73 year old female whom I saw in the office for a Left Breast mass. Bx revealed invasive ductal cancer with involvement of the skin. Risks, benefits and complications were reviewed with her and she wished to proceed. Complications include but are not limited to bleeding, infection, wound dehiscence, flap necrosis, seroma, hematoma, lymphedema and nerve injury. Questions were entertained and answered to her satisfaction and she wished to proceed. No guarantees were given or implied. Findings: 3 hot an enlarged lymph nodes Mobile mass without attachments to the muscle Procedure Description: At 7:30 in the morning the patient was taken to radiology and 2 cc of radioactive isotope was injected into the dermis at the edge of the areola over the mass. The patient was then taken back to [facility] to await surgery. her left Breast was marked. After informed consent was obtained the patient was taken to the PACU for anesthesia to do a erector spinae block on the left side. Once the block was done the patient was taken into the operating room and placed in a supine position. She was placed under general anesthesia and intubated was. SCDs were applied prior to sedating the patient. Next 2 cc of methylene blue was injected into the dermis around the nipple and the area was massaged. Using the [employer] counter the axilla was scanned and a aysha was placed on the skin at the hottest [place]. [place] [id number]. The left chest and right axilla were prepped and draped in a sterile surgical fashion. At this point a timeout was done. The patient's name, date of , antibiotic prophylaxis, DVT prophylaxis, procedure planned and site of procedure were reviewed. Fire risk with assessed. An elliptical incision was marked around the nipple. Next .25% Marcaine mixed with Experel was injected into the dermis along the previously marked area. Using a 10 blade the skin was incised along the marked area. The medial aspect of the incision was grasped with Zenobia's and pulled up and then using cautery a flap was created medially towards the sternum. The dissection was taken down to the fascia. The superior skin was then grasped with the Zenobia's and using cautery another skin flap was created superiorly all the way to the clavicle. Next the flap was created inferiorly to the mammary fold in the same fashion. The Breast tissue was dissected away from the skin medially to the edge of the pectoralis muscle. Bleeding was stopped either with cautery or suture ligation as blood vessels were encountered. The subcutaneous tissue was grasped at the medial corner and the tissue was removed including the fascia off of the pectoralis muscle. Once the entire breast tissue was removed it was marked with a suture medially and placed in formalin. Next the skin was grasped laterally and using hemostat I dissected down into the axilla. The Romario counter was used to identify a total of 3 sentinel lymph node. The count for Lymph node #1 was , for Lymph Node #2 [id number] and for Lymph Node #3 [id number]. A 4th Lymph node was palpated and was large and was removed. The sentinel lymph nodes were placed in separate containers with formalin. The romario counter was then placed back into the axilla and no other hot lymph nodes were identified. Post lymph node 10-second count was less than 10% of the initial count. Some bleeding was noted within the axilla and this was stopped with cautery as well as suture ligation. It was still oozy at this point but I did not want to cauterize close to the chest wall so as to not injure any of the nerves. Tari was injected into the axilla. The pectoralis muscle was then inspected and again small bleeders were stopped with either cautery or suture ligation. 2 g of Tari was then placed over the pectoralis muscle to help with hemostasis. Next a small stab wound was done on the lateral aspect of the wound and a 10 Greek drain was placed and secured with 2-0 Nylon. The superior skin flap was then brought down to the inferior border and it was nice tight fit. There was dog ear noted on the medical side so more skin was removed and sent in a separate [facility] marked medical skin. The skin edges were then approximated with 2-0 Vicryl interrupted sutures in the subcutaneous tissue. The dermis was re-approximated with two, 4-0 Vicryl running sutures. The skin was cleaned and dried. Mastisol and Steri-Strips were applied. 4 x 4's and ABDs were applied to the incision and secured with tape. At this point the patient was woken up extubated and moved over to the [facility]. Patient was taken back to recovery room in stable condition. Sponge instrument needle counts were correct x2 at the end of the case. There were no immediate complications and the patient tolerated the procedure well.
--- NOTE | 2018-12-07 08:40 | HOME_ITS ---
Home Ventilator Equipment Home care company [employer] Reason: Obstructive Sleep Apnea Make: ResMed Model: REMStar Mask type: Nasal mask Mask size: Small Mode: CPAP Settings: Max/min 16/13 Oxygen bleed in (lpm): 0 Condition: Good Date last checked: 12/07/18 Year of last sleep study: Compliance Daily Comments:
[2018-12-07] MEDS: Lactated Ringers 1,000 ML 75 ML IV ×2 (08:55→16:08)
[2018-12-07] MEDS: Bupivacaine LIPOSOME/PF 133 MG/10 ML VIAL IJ ×2 (11:05→13:53)
[2018-12-07] MEDS: Bupivacaine 0.5% Pres-Free 30 ML VIAL (11:05)
--- NOTE | 2018-12-07 11:15 | DI.NM_ITS ---
SYMPTOM/DIAGNOSIS: LT BREAST CA, C50.912 LYMPHOCINTIGRAPHY, INJECTION ONLY: 1.0 millicuries of Sulfur Colloid was administered intradermally by Dr. Bedolla. Patient was followed in the operating room by shielded Gamma probe.
[2018-12-07] MEDS: ceFAZolin 2 GM/50 ML BAG IVPB (11:41)
--- NOTE | 2018-12-07 12:51 | BREAST_PTH ---
PATIENT: Myesha Santizo LOC: U#:[id number] AGE/SX: 73/F ROOM: RE12/07/[address]: Minnie Bedolla MD : 1945 BED: A DIS: 12/08/2018 SPEC #: [id number] RECD: 12/08/18 12:21 STATUS: CELSO REQ #: [id number] TERA: 12/07/18 12:[address]: Minnie Bedolla DEPT: Surgical Specimen RECD BY: Violet Fairchild ENTERED: 12/08/18 12:25 SP TYPE: Breast OTHR DR: Navid Avendaño MD Tissues: 1 - BREAST MASTECTOMY W/NODES 2 - LYMPH NODE RESECTION 3 - LYMPH NODE RESECTION 4 - LYMPH NODE RESECTION 5 - LYMPH NODE RESECTION 6 - SKIN EXCISION WIDE Procedures: GROSS AND MICRO LEVEL 2 GROSS AND MICRO LEVEL 4 GROSS AND MICRO LEVEL 5 Comments: [id number] (ALL SAMPLES RADIOACTIVE)
[2018-12-07] MEDS: Bupivacaine 0.25% Pres-Free 30 ML VIAL (13:52)
[2018-12-07] MEDS: Ondansetron 4 MG/2 ML VIAL IVP (16:08)
[2018-12-07] MEDS: Ketorolac 15 MG/ML VIAL IVP (16:09)
[2018-12-07] MEDS: Normal Saline Flush 10 ML SYR IV (16:09)
--- NOTE | 2018-12-07 18:34 | NUR.NOTE ---
Patient was admitted to the Med/Surg unit from PACU after having left mastectomy done under GA. Patient is AxOX3. Head to toe assessment done and charted. RAYNE drainage insitu to the area draining bloody secretions. Having pain 2/10 and a little nausea as per patient verbalization, analgesics and anti-nausea medication given to relieve discomfort. Patient made comfortable in bed at this time.
--- NOTE | 2018-12-07 19:07 | W.PM.PROGNOT ---
Date of Service Date of service: 12/07/18 Time of Service: 19:08 Assessment and Plan (1) S/P left mastectomy: Current visit: Yes Status: Acute Doing well post-surgery. P\\ Home tomorrow with the RAYNE drain Has appointment on Wednesday with me at 1:15 pm. Subjective Interval history since last seen: Doing well. No complaints. Some soreness in her left axilla when moving her arm. Exam Chest Other: RAYNE with dark blood. 75 cc emptied since surgery. Resp Effort & Inspection: normal respiratory effort Auscultation: clear to auscultation bilaterally Cardio Rate: regular rate Rhythm: regular rhythm Objective Objective Clinical Data: Vital Signs Temperature 97.5 F L 12/07/18 16:50 Temperature Source Temporal Artery Scan 12/07/18 16:50 Pulse 67 12/07/18 16:50 Respiratory Rate 20 12/07/18 16:50 Respiratory Effort Non-Labored 12/07/18 15:20 Respiratory Depth Normal 12/07/18 15:20 Respiratory Pattern Normal 12/07/18 15:20 Blood Pressure 119/66 12/07/18 16:50 Pulse Oximetry 95 12/07/18 17:32 Respiratory End-tidal CO2 34 12/07/18 15:00 Oxygen Delivery Method Nasal Cannula 12/07/18 17:32 Oxygen Flow Rate 2 12/07/18 17:32 Pain Level 2 12/07/18 15:00 Intake & Output 12/06/18 12/07/18 12/07/18 23:59 11:59 23:59 Intake Total 50 / 975 925 / 975 Output Total 350 / 350 Balance 50 / 625 575 / 625 Weight 235 lb 0.204 oz Intake: IV 50 / 905 855 / 905 Injectate 70 / 70 Left Chest 70 / 70 Output: Urine 350 / 350 Other: Urine Color Yellow Green Urine Appearance Clear Clear Comment patient had blue colored urine passed in the tiolet. Emesis Description None Voiding Methods Toilet
[2018-12-07] MEDS: Docusate Sodium 100 MG CAP PO ×2 (20:42→21:14)
[2018-12-07] MEDS: rOPINIRole 1 MG TAB PO (21:13)
[2018-12-07] MEDS: Omeprazole 20 MG CAPCR PO (21:14)
[2018-12-07] MEDS: Pravastatin 40 MG TAB PO (21:14)
[2018-12-07] MEDS: LORazepam 1 MG TAB PO (21:14)
[2018-12-07] MEDS: Acetaminophen 325 MG TAB 650 MG PO (21:14)
[2018-12-07] MEDS: metFORMIN 500 MG TAB PO (21:14)
[2018-12-08 04:00] VITALS: BP 105/56; PULSE 75; RESP 18; TEMP 36.3; O2SAT 95
--- NOTE | 2018-12-08 05:52 | W.PM.PROGNOT ---
Date of Service Date of service: 12/08/18 Time of Service: 05:52 Assessment and Plan (1) S/P left mastectomy: Current visit: Yes Status: Acute A\\ POD#1 s/p Left Mastectomy Doing well P\\ D/C home later today Needs teaching for her RAYNE Follow up on Wednesday at 13:15 Subjective Interval history since last seen: POD#1 s/p left Mastectomy Doing well. Had a good night. NO complaints Exam Chest Other: Left Mastectomy site- incision is c/d/i RAYNE with serosanguinous discharge. Resp Effort & Inspection: normal respiratory effort Auscultation: clear to auscultation bilaterally Cardio Rate: regular rate Rhythm: regular rhythm Objective Objective Clinical Data: Vital Signs Temperature 97.5 F L 12/07/18 16:50 Temperature Source Temporal Artery Scan 12/07/18 16:50 Pulse 67 12/07/18 16:50 Pulse Rhythm Regular 12/07/18 21:26 Respiratory Rate 20 12/07/18 16:50 Respiratory Effort Non-Labored 12/07/18 21:26 Respiratory Depth Normal 12/07/18 21:26 Respiratory Pattern Normal 12/07/18 21:26 Blood Pressure 119/66 12/07/18 16:50 Pulse Oximetry 94 L 12/07/18 21:26 Respiratory End-tidal CO2 34 12/07/18 15:00 Oxygen Delivery Method Room Air 12/07/18 21:26 Oxygen Flow Rate 0 12/07/18 21:26 Pain Level 2 12/07/18 15:00 Intake & Output 12/07/18 12/07/18 12/08/18 11:59 23:59 11:59 Intake Total 50 / 975 925 / 975 1000 / 1000 Output Total 580 / 580 Balance 50 / 395 345 / 395 1000 / 1000 Weight 235 lb 0.204 oz Intake: IV 50 / 905 855 / 905 1000 / 1000 Injectate 70 / 70 Left Chest 70 / 70 Output: Drainage 30 / 30 Left Chest 30 / 30 Urine 550 / 550 Other: Urine Color Yellow Green Urine Appearance Clear Clear Urine Odor None Comment patient had blue colored urine passed in the tiolet. Emesis Description None Voiding Methods Toilet
[2018-12-08] MEDS: Ketorolac 15 MG/ML VIAL IVP (05:59)
[2018-12-08] MEDS: Acetaminophen 325 MG TAB 650 MG PO ×2 (06:00→14:00)
[2018-12-08 06:53] LABS: HCT 31.9 % (36.0-46.0)
[2018-12-08 07:00] VITALS: BP 103/53; PULSE 71; RESP 17; TEMP 36.6; O2SAT 96
[2018-12-08] MEDS: metFORMIN 500 MG TAB PO (07:51)
[2018-12-08] MEDS: Levothyroxine 88 MCG TAB PO (07:51)
[2018-12-08] MEDS: Omeprazole 20 MG CAPCR PO (07:51)
[2018-12-08] MEDS: Docusate Sodium 100 MG CAP PO (07:51)
[2018-12-08] MEDS: Sertraline 50 MG TAB 100 MG PO (07:52)
[2018-12-08] MEDS: Furosemide 20 MG TAB PO (07:52)
[2018-12-08] MEDS: Lisinopril 10 MG TAB PO (07:52)
[2018-12-08] MEDS: Magnesium Oxide 400 MG TAB PO (07:52)
[2018-12-08] MEDS: traMADol 50 MG TAB PO (08:53)
[2018-12-08 15:10] VITALS: BP 108/50; PULSE 70; RESP 16; TEMP 36.7; O2SAT 96
--- NOTE | 2018-12-08 15:28 | PDOC.CMIN ---
Care Management Initial Assess REASON FOR HOSPITALIZATION:: LT Breast CA, Mascectomy PAST MEDICAL HISTORY/PAST SURGICAL HISTORY:: Adenomatous polyp of colon, anxiety, gonzalez esophagus, cancer of L breast, cortical cataract bilat, diabetes, hysterectomy, hyperlipidemia, hypertension, hypothyroid, nuclear sclerotic cataract bilat, obesity, squamous cell skin cancer, uterine cancer, ventral hernia, biopsy of breast, section, endometrial biopsy, left mastectomy PREVIOUS FUNCTIONAL STATUS/SOCIAL/FAMILY SUPPORTS:: Myesha resides alone in [place], [place]. Her daughter, son in law and grandson reside right next door and assist with ADLs. Her grandson earns an allowance providing light house duties such as vaccuuming. Myesha is mostly independent at baseline. CURRENT FUNCTIONAL STATUS:: Myesha is sitting in the chair, her daughter present at her side. She is pleasant in interaction and forthcoming with information. ADVANCE DIRECTIVES:: On file, daughter Geovanna as agent. Has patient been provided with information about the portal?: Yes Did the patient sign up for the portal?: Yes (Previously ) CODE STATUS:: Full Code INSURANCE COVERAGE / FINANCIAL ISSUES:: [employer] [facility] CURRENT HOME/COMMUNITY SERVICES/EQUIPMENT:: No current services or equipment. PRIMARY CARE PHYSICIAN:: Navid Avendaño POTENTIAL DISCHARGE NEEDS:: Coordination of home health orders; RN; dressing changes and OT. Follow up appointments. PATIENT/FAMILY EDUCATION NEEDS:: Review of discharge instructions, discuss Ask Me Three. ANTICIPATED BARRIERS TO DISCHARGE:: None identified at this time. TRANSPORTATION:: Via private vehicle with her daughter. PLAN:: Myesha will return home when ready per MD. She will follow up with surgical services, her PCP and plan of care as prescribed. She will have new orders for [facility]; RN for daily dressing changes and OT for support with personal care. BETH spoke with Casandra at [facility] and faxed orders upon discharge. Myesha will transport via private vehicle with her daughter, Geovanna.
--- NOTE | 2018-12-08 15:44 | PDOC.HHF2F ---
1. Encounter Date and Reason I certify that JENNIFER LAM was seen by Tea Cadet on 12/08/18 and that I had a dxke-qf-ahru encounter with this patient that meets the physician face to face encounter requirements. 2. Clinical Findings Supporting Skilled Need and Homebound Status I certify that home health services are medically necessary, include either intermittent shelter and/or physical/speech therapy, and that this patient is homebound in that absences from the home require considerable and taxing effort and are infrequent or of short duration, or are attributable to the need to receive medical care. [X] (a) Attached documentation from encounter provides clinical findings supporting skilled need and homebound status (including what assistance patient requires to leave the home). The encounter with the patient was in whole, or in part, for the following medical condition, which is the primary reason for home health care: LT BREAST CA, 7:00 DSU, [place] ONLY Pen[facility]iary: for dialy dressing changes and RAYNE care. -empty RAYNE drain daily. Record output amounts and bring to Follow-up appt. w/ Dr. Bedolla as previously scheduled. Use ABD on the wound. minimal tape. use X2 double wide BARBRA wrap for chest compression. change daily. Pt can remove dressing, get in shower and shower normally. than replace dressing. pt is going to require home health aide to assist with shower Physical Therapy: Speech Therapy: Homebound: 3. Certification and Authentication I certify that I composed the above information based on my clinical judgement relating to this patient's medical condition and, if applicable, clinical findings communicated to me by the NPP or inpatient physician who performed the Home Health Referral. All further orders will be obtained through (Community Based Physician - PCP)
--- NOTE | 2018-12-08 15:47 | HHF2F_ITS ---
1. Encounter Date and Reason I certify that JENNIFER LAM was seen by Tea Cadet on 12/08/18 and that I had a anca-aq-ewci encounter with this patient that meets the physician face to face encounter requirements. 2. Clinical Findings Supporting Skilled Need and Homebound Status I certify that home health services are medically necessary, include either intermittent intermediate and/or physical/speech therapy, and that this patient is homebound in that absences from the home require considerable and taxing effort and are infrequent or of short duration, or are attributable to the need to receive medical care. [X] (a) Attached documentation from encounter provides clinical findings supporting skilled need and homebound status (including what assistance patient requires to leave the home). The encounter with the patient was in whole, or in part, for the following medical condition, which is the primary reason for home health care: LT BREAST CA, 7:00 DSU, [place] ONLY Correction: for dialy dressing changes and RAYNE care. -empty RAYNE drain daily. Record output amounts and bring to Follow-up appt. w/ Dr. Bedolla as previously scheduled. Use ABD on the wound. minimal tape. use X2 double wide BARBRA wrap for chest compression. change daily. Pt can remove dressing, get in shower and shower normally. than replace dressing. pt is going to require home health aide to assist with shower Physical Therapy: Speech Therapy: Homebound: 3. Certification and Authentication I certify that I composed the above information based on my clinical judgement relating to this patient's medical condition and, if applicable, clinical findings communicated to me by the NPP or inpatient physician who performed the Home Health Referral. All further orders will be obtained through (Community Based Physician - PCP)
--- NOTE | 2018-12-08 16:02 | DSE_ITS ---
DS: Diagnosis Discharge Diagnosis (1) S/P left mastectomy: Status: Acute Discharge Plan Disposition Patient Disposition: HOME Condition: Improving Discharge Details Reason For Visit: LT BREAST CA, 7:00 DSU, [place] ONLY Admit Date/Time: 12/07/18 07:16 Admit Provider: iMnnie Bedolla Attending Provider: Minnie Bedolla Primary Care Provider: Navid Avendaño Hospital Course Hospital Course: pt underwent mastectomy and SLN bx on 12/08. She was kept overnight for kendrick control/wound care/and general medical care secondary to medical problems. post Op she has done well. today she tolerated a regular diet, is up and moving around. pain is controlled on po meds. We reviewed wound care/activity/warning signs. She has appt set up w/ Dr. Duque Home Meds and New Rx's Prescriptions: New docusate sodium 100 mg capsule 100 mg PO TID Qty: 60 RF: 4 Continued ropinirole 1 mg tablet 1 mg PO HS RF: 0 metformin 500 mg tablet 500 mg PO BID Qty: 180 RF: 4 lisinopril 10 mg tablet 10 mg PO DAILY Qty: 90 RF: 4 FreeStyle Lite Strips strip 1 strip Miscellaneous DAILY Qty: 100 RF: 4 ketorolac 0.5 % drops 1 drp ophthalmic (eye) .q 4 hrs RF: 0 lorazepam 1 mg tablet 1 mg PO HS PRN (Reason: insomnia) Qty: 20 RF: 0 omeprazole 20 mg capsule,delayed release(DR/EC) 20 mg PO BID Qty: 180 RF: 4 pravastatin 40 mg tablet 40 mg PO QHS Qty: 90 RF: 4 sertraline 100 mg tablet 100 mg PO DAILY Qty: 90 RF: 4 ibuprofen 200 MG capsule 2 cap PO PRN RF: 0 aspirin [Ecotrin Low Strength] 81 MG tablet,delayed release (DR/EC) 81 mg PO DAILY RF: 0 acetaminophen [Tylenol Extra Strength] 500 MG tablet 500 mg PO PRN RF: 0 vitamin E (dl, acetate) 400 UNIT capsule 400 unit PO DAILY RF: 0 CPAP RF: 0 cholecalciferol (vitamin D3) [Vitamin D3] 2,000 UNIT capsule 2,000 unit PO DAILY RF: 0 magnesium oxide 400 MG capsule 400 mg PO DAILY RF: 0 blood-glucose meter [FreeStyle Lite Meter] 1 EACH kit 1 ea Miscellaneous DAILY Qty: 1 RF: 0 furosemide 20 MG tablet 20 mg PO DAILY Qty: 90 RF: 3 levothyroxine 88 mcg tablet 88 mcg PO DAILY Qty: 90 RF: 4 tramadol 50 mg tablet 50 mg PO Q8H PRN (Reason: pain) Qty: 14 RF: 0 Eye Drop Tears 1-0.2-0.2 % Drops 2 drp OPHTHALMIC (EYE) TID-QID PRNRF: 0 Discharge Instructions Additional Instructions: Keep an ice bag on the incision. 20 minutes on and 20 minutes off. Ice keeps the swelling down and swelling causes pain. Make sure you wrap the ice pack in a t owel and don't apply directly to the skin. -No driving x1 week or of you are taking pain medications. - -Do Not remove any steri tapes (white tapes) that cover the incision. If you have steri-tapes on your incision, do not use antibacterial ointment. -Follow-up with Dr. Cadet in 1 week. -continue controlled carb diet -no straining to move bowels -pain meds are very constipating: if you do not move your bowels daily take a dose of OTC milk of magnesia -It is ok to shower. No bathe, soaking, swimming or hot tubs -Keep wound clean and dry. Wash incision with soap and water daily. Pat dry, don 't rub. -If you do not have steri-tapes on your incision, than keep the wound covered with a gauze and antibacterial ointment. - You may find that your appetite is smaller. Eat 3-6 small meals throughout the day. It is important to drink lots of water after surgery, 6-10 glasses a day. -If you were given an incentive spirometry (\breathing administrative office clerk\[id number]), continue to do this 10x/hour while awake. -We do want you up walking, at least 5-6 times per day. This is very important to prevent pneumonia and blood clots. You can climb stairs, take them slowly. -No lifting over 5 pounds. -keep a compression garment around the chest. -You may find that you are very tired after surgery- this is normal. -please do not smoke for a minimum of 72 hours after surgery. Stand Alone Forms: Nursing Discharge Form Referrals: Minnie Bedolla MD [ [facility] STAFF PHYSICIAN] - 12/20/18 1:30 pm Activity:: no lifting over 5#'s left hand Equipment/Supplies:: No Equipment Needed Diet:: Carb Counting Discharge Orders Discharge Orders: Discharge Order (Routine); Ordered 12/08/18 Ordered By: Tea Cadet Exam Narrative Exam Narrative: see progress notes DS: Data Vitals/I&O Vitals and I&O: Vital Signs Temperature 36.6 C 12/08/18 07:00 Temperature Source Tympanic 12/08/18 07:00 Pulse 71 12/08/18 07:00 Pulse Rhythm Regular 12/08/18 07:59 Respiratory Rate 17 12/08/18 07:00 Respiratory Effort Non-Labored 12/08/18 07:59 Respiratory Depth Normal 12/08/18 07:59 Respiratory Pattern Normal 12/08/18 07:59 Blood Pressure 103/53 L 12/08/18 07:00 Pulse Oximetry 96 12/08/18 07:00 Respiratory End-tidal CO2 34 12/07/18 15:00 Oxygen Delivery Method Room Air 12/08/18 07:00 Oxygen Flow Rate 0 12/08/18 07:00 Pain Level 2 12/08/18 14:02 Intake & Output 12/07/18 12/08/18 12/08/18 23:59 11:59 23:59 Intake Total 1165 / 1215 1500 / 1740 240 / 1740 Output Total 580 / 580 1000 / 1828 828 / 1828 Balance 585 / 635 500 / -88 -588 / -88 Intake: IV 855 / 905 1000 / 1000 Oral 240 / 240 480 / 720 240 / 720 Injectate 70 / 70 20 / 20 Left Chest 70 / 70 20 / 20 Output: Drainage / Left Chest Urine 550 / 550 1000 / 1800 800 / 1800 Other: Urine Color Green Green Pale Yellow Urine Appearance Clear Clear Clear Urine Odor None None None Comment patient had blue colored urine passed in the tiolet. pt does not have a dowd catheter at this time Stool Size Copious Stool Characteristics Soft Emesis Description None Voiding Methods Toilet Toilet Toilet Labs on day of discharge: Labs from last 24 hours 12/08/18 06:15 Hgb 10.0 L Hct 31.9 L PFSH Medical History Cancer of left breast (Acute ~11/11/18) Uterine cancer (Acute) Ventral hernia (Acute) Diabetes (Chronic) H/O: hysterectomy (Chronic) History of hysterectomy (Chronic) History of hysterectomy (Chronic) Cortical cataract of left eye (Resolved) Cortical cataract of right eye (Resolved) Nuclear sclerotic cataract of left eye (Resolved) Nuclear sclerotic cataract of right eye (Resolved) Adenomatous polyp of colon Anxiety Avila esophagus Hyperlipidemia Hypertension Hypothyroid Obesity, Class III, 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 skin cancer Surgical History S/P left mastectomy (Acute ~12/07/18) Status post cataract extraction and insertion of intraocular lens of right eye (Chronic 05/16/18) Status post cataract extraction and insertion of intraocular lens of left eye (Chronic 05/30/18) Status post cataract extraction and insertion of intraocular lens of right eye (Resolved 05/16/18) Biopsy of breast section Endometrial Biopsy (~2006) Social History Smoking/Tobacco Use Status: Never Alcohol Intake: never Drug use: Never Substance use type: does not use 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
--- NOTE | 2018-12-08 16:19 | INITIAL_ITS ---
Care Management Initial Assess REASON FOR HOSPITALIZATION:: LT Breast CA, Mascectomy PAST MEDICAL HISTORY/PAST SURGICAL HISTORY:: Adenomatous polyp of colon, anxiety, gonzalez esophagus, cancer of L breast, cortical cataract bilat, diabetes, hysterectomy, hyperlipidemia, hypertension, hypothyroid, nuclear sclerotic cataract bilat, obesity, squamous cell skin cancer, uterine cancer, ventral hernia, biopsy of breast, section, endometrial biopsy, left mastectomy PREVIOUS FUNCTIONAL STATUS/SOCIAL/FAMILY SUPPORTS:: Myesha resides alone in [place], [place]. Her daughter, son in law and grandson reside right next door and assist with ADLs. Her grandson earns an allowance providing light house duties such as vaccuuming. Myesha is mostly independent at baseline. CURRENT FUNCTIONAL STATUS:: Myesha is sitting in the chair, her daughter present at her side. She is pleasant in interaction and forthcoming with information. ADVANCE DIRECTIVES:: On file, daughter Geovanna as agent. Has patient been provided with information about the portal?: Yes Did the patient sign up for the portal?: Yes (Previously ) CODE STATUS:: Full Code INSURANCE COVERAGE / FINANCIAL ISSUES:: [employer] [facility] CURRENT HOME/COMMUNITY SERVICES/EQUIPMENT:: No current services or equipment. PRIMARY CARE PHYSICIAN:: Navid Avendaño POTENTIAL DISCHARGE NEEDS:: Coordination of home health orders; RN; dressing changes and OT. Follow up appointments. PATIENT/FAMILY EDUCATION NEEDS:: Review of discharge instructions, discuss Ask Me Three. ANTICIPATED BARRIERS TO DISCHARGE:: None identified at this time. TRANSPORTATION:: Via private vehicle with her daughter. PLAN:: Myesha will return home when ready per MD. She will follow up with surgical services, her PCP and plan of care as prescribed. She will have new orders for [facility]; RN for daily dressing changes and OT for support with personal care. BETH spoke with Casandra at [facility] and faxed orders upon discharge. Myesha will transport via private vehicle with her daughter, Geovanna.
--- NOTE | 2018-12-08 16:19 | PDOC.CMDIS ---
LACE Index Scoring Tool - Questions: Length of Stay (in days): 1 Acuity (Admit via E.D.?): No Comorbidities: Diabetes w/o Complication, Any Tumor E.D. Visits: 0 - Answers: Total Score: 4 Risk of Readmission: Low Risk Care Management Discharge Reason for Hospitalization: LT Breast CA, Mascectomy Discharge Plan: Myesha will return home when ready per MD. She will follow up with surgical services, her PCP and plan of care as prescribed. She will have new orders for [facility]; RN for daily dressing changes and OT for support with personal care. BETH spoke with Casandra at [facility] and faxed orders upon discharge. Myesha will transport via private vehicle with her daughter, Geovanna. Patient/Family Education Needs: Review of instructions, discuss Ask Me Three. Services Needed at Discharge: Home Health Care Services (RN, dressing changes, OT. )
--- NOTE | 2018-12-08 16:22 | CMDISCH_ITS ---
LACE Index Scoring Tool - Questions: Length of Stay (in days): 1 Acuity (Admit via E.D.?): No Comorbidities: Diabetes w/o Complication, Any Tumor E.D. Visits: 0 - Answers: Total Score: 4 Risk of Readmission: Low Risk Care Management Discharge Reason for Hospitalization: LT Breast CA, Mascectomy Discharge Plan: Myesha will return home when ready per MD. She will follow up with surgical services, her PCP and plan of care as prescribed. She will have new orders for [facility]; RN for daily dressing changes and OT for support with personal care. BETH spoke with Casandra at [facility] and faxed orders upon discharge. Myesha will transport via private vehicle with her daughter, Geovanna. Patient/Family Education Needs: Review of instructions, discuss Ask Me Three. Services Needed at Discharge: Home Health Care Services (RN, dressing changes, OT. )
== END 2018-12-08 16:36 | disposition home or self-care (01) ==
LOC: SUR 10:42 → MS 15:12
PROVIDERS: Admitting Provider Surgery; PCP Family Medicine; Visit Provider Surgery
PROC: 0HTU0ZZ Resection of Left Breast, Open Approach (ICD-10-PCS; CPT 19307; 2018-12-07 11:15)
PROC: 0HTU0ZZ Resection of Left Breast, Open Approach (ICD-10-PCS; CPT 19307; 2018-12-07 11:15)
DX: C50.312 Malignant neoplasm of lower-inner quadrant of left female breast (principal); C77.3 Secondary and unspecified malignant neoplasm of axilla and upper limb lymph nodes; Z17.0 Estrogen receptor positive status [ER+]; G47.33 Obstructive sleep apnea (adult) (pediatric); G89.18 Other acute postprocedural pain; Z90.12 Acquired absence of left breast and nipple
CPT/HCPCS: 19307; 38792; 36415; 76942; 88305; 99239; A9541; NC; 85014; 85018; 88302; 88307; 88309; G0378; J0360; J0690; J1100; J1885; J2250; J2405; J3010

== ENCOUNTER 2019-02-21 02:07 | Outpatient (CLI) | payer OTHER, SELFPAY ==
[2019-02-21 10:00] LABS: Abs Immature Grans 0.02 k/cumm (0.0-0.09); Absolute Basophil Count 0.02 k/cumm (0.0-0.2); Absolute Eosinophil Count 0.09 k/cumm (0.0-0.7); Absolute Lymphocyte Count 1.07 k/cumm (1.2-3.4); Absolute Monocyte Count 0.47 k/cumm (0.11-0.7); Absolute Neutrophil Count 4.86 k/cumm (1.2-6.7); Basophils % 0.3; Eosinophils % 1.4; HCT 33.5 % (36.0-46.0); HGB 10.5 g/dL (12.0-15.5); Immature Grans % 0.3; Lymphocytes % 16.4; Mean Corp. HGB Concentration 31.3 g/dL (32.0-36.0); Mean Corpuscular Hemoglobin 27.7 pg (27.0-33.0); Mean Corpuscular Volume 88.4 fL (80-95); Mean Platelet Volume 10.2 fL (8.0-11.0); Monocytes % 7.2; Neutrophils % 74.4; Platelet Count 205 x1000/uL (130-400); RBC 3.79 m/cumm (4.00-5.20); RBC Distribution Width 14.9 % (11.7-14.6); White Blood Cell Count 6.53 k/cumm (4.4-10.8)
[2019-02-21 10:14] LABS: ALT 21 U/L (12-78); AST 9 U/L (15-37); Albumin 3.7 g/dL (3.4-5.0); Alkaline Phosphatase 79 U/L (46-116); Anion Gap 10.4 mmol/L (3-11); BUN 18 mg/dL (7-18); Bilirubin, Total 0.3 mg/dL (0.2-1.0); CO2 27.6 mmol/L (21.0-32.0); CREATININE 1.17 mg/dL (0.55-1.02); Calcium 9.1 mg/dL (8.5-10.1); Chloride 101 mmol/L (98-107); Estimated GFR 45.47 (mL/min/1.73m2); Glucose 121 mg/dL (70-100); Potassium 4.2 mmol/L (3.5-5.1); Sodium 139 mmol/L (136-145); Total Protein 7.4 g/dL (6.4-8.2)
== END 2019-02-21 02:27 ==
PROVIDERS: PCP Family Medicine; Visit Provider Internal Medicine
DX: C50.912 Malignant neoplasm of unspecified site of left female breast (principal)
CPT/HCPCS: 36415; 80053; 85025

== ENCOUNTER 2019-03-14 09:36 | Outpatient (CLI) | payer OTHER, SELFPAY ==
[2019-03-14 09:58] LABS: Abs Immature Grans 0.17 k/cumm (0.0-0.09); Absolute Basophil Count 0.01 k/cumm (0.0-0.2); Absolute Eosinophil Count 0.01 k/cumm (0.0-0.7); Absolute Monocyte Count 0.78 k/cumm (0.11-0.7); Absolute Neutrophil Count 11.68 k/cumm (1.2-6.7); Basophils % 0.1; Eosinophils % 0.1; HCT 31.9 % (36.0-46.0); HGB 10.2 g/dL (12.0-15.5); Immature Grans % 1.2; Lymphocytes % 8.7; Mean Corpuscular Hemoglobin 27.8 pg (27.0-33.0); Mean Corpuscular Volume 86.9 fL (80-95); Mean Platelet Volume 10.3 fL (8.0-11.0); Monocytes % 5.6; Neutrophils % 84.3; Platelet Count 271 x1000/uL (130-400); RBC 3.67 m/cumm (4.00-5.20); RBC Distribution Width 15.6 % (11.7-14.6); White Blood Cell Count 13.85 k/cumm (4.4-10.8)
[2019-03-14 10:09] LABS: ALT 22 U/L (14-59); AST 11 U/L (15-37); Albumin 3.5 g/dL (3.4-5.0); Alkaline Phosphatase 95 U/L (46-116); Anion Gap 12.8 mmol/L (3-11); BUN 25 mg/dL (7-18); Bilirubin, Total 0.3 mg/dL (0.2-1.0); CO2 23.2 mmol/L (21.0-32.0); CREATININE 1.17 mg/dL (0.55-1.02); Calcium 9.2 mg/dL (8.5-10.1); Chloride 103 mmol/L (98-107); Estimated GFR 45.47 (mL/min/1.73m2); Glucose 167 mg/dL (70-100); Potassium 3.8 mmol/L (3.5-5.1); Sodium 139 mmol/L (136-145); Total Protein 7.5 g/dL (6.4-8.2)
[2019-03-15 12:36] LABS: Cancer Ag 15-3 14 U/mL (<30)
== END 2019-03-14 09:56 ==
PROVIDERS: PCP Family Medicine; Visit Provider Internal Medicine
DX: C54.1 Malignant neoplasm of endometrium (principal); C50.912 Malignant neoplasm of unspecified site of left female breast
CPT/HCPCS: 36415; 80053; 86304; 85025; 86300

== ENCOUNTER 2019-03-14 13:26 | Inpatient (IN) | payer OTHER, SELFPAY ==
[2019-03-14] VITALS (53 sets, daily range): BP systolic 105–142; BP diastolic 51–99; PULSE 76–120; RESP 12–31; TEMP 36.5–36.7; O2SAT 89–97
--- NOTE | 2019-03-14 13:56 | W.ED.GENAD ---
Discharge Plan Disposition Patient Disposition: [facility] INPATIENT Discharge Details Chief Complaint: Chest Pain Clinical Impression: Syncope, Leukocytosis, Acute UTI, Hypoxia Admit Date/Time: 03/14/19 19:00 Admit Provider: Andrei Vann Attending Provider: Andrei Vann Primary Care Provider: Navid Avendaño ED Provider: Dragan Barajas Discharge Data Discharge Date/Time-TO BE ENTERED AT DEPARTURE: 03/14/19 19:55 Medical Decision Making <Paresh Espinal NP - Last Filed: 03/15/19 20:17> Patient presenting to the emergency department for chief complaint of syncopal episode. Patient states that she was at the cancer center receiving her second cancer treatment when only minutes into the infusion she felt a warmth all over and stood up due to feeling some irritation in her legs and she blacked out patient does state mild chest pressure after this occurred but otherwise denies any other symptoms. Patient does state that since her first episode of chemo she has had significant amount of diarrhea. Physical exam shows that patient is tachycardic, mildly hypoxic, mild hypotension with blood pressure 110/58. Patient placed upon 2 L of oxygen NC due to hypoxia. otherwise patient in no acute signs of distress and exam is otherwise unremarkable. Plan to check labs, EKG, d-dimer. Pending results patient given IV fluids. Review of labs showing negative troponin, CBC with elevation of WBCs that I feel secondary to steroids given by [facility] center along with chemo, patient is afebrile denies any febrile type symptoms or illness type symptoms, d-dimer elevated to greater than 7500, CMP shows elevated anion gap, increased BUN and creatinine suggestive of some dehydration, elevated glucose, mag of 1.3. BNP is 247. Given elevated d-dimer I do feel that chest CT is required for rule out of PE type event. Review of CTA with radiologist shows no acute pulmonary embolism. Patient reassessed and states some improvement of symptoms. Plan to give additional IV fluids and IV magnesium. ECG Data Interpretation: EKG reviewed with Dr. Liliane Duran attending physician. Shows rate of 100, sinus rhythm, occasional ectopic beats, inverted T waves in aVR and V1 but no signs of STEMI <CURTIS Madsen - Last Filed: 03/14/19 20:27> 18:20 Patient received in signout from Twin Espinal nurse practitioner at shift change. See his note for complete HPI and PE details. In brief, patient is a 73-year-old female who was receiving her second round of chemotherapy today when she developed a syncopal event. Patient states that she suddenly felt very flushed while standing. She sat back in her chair and became unresponsive according to bystanders. She had a blood pressure in the field of 82/50 with a heart rate of 108. She was found unresponsive and foaming at the mouth. After she woke back up she complained of chest heaviness. She came in via ambulance with a normal-appearing EKG sinus tach in the [address] changes. Initial troponin and subsequent serial troponins negative for ACS. Her chest pain has self resolved. She has received a liter of fluids with improvement. She does have a significant leukocytosis of 27,000 along with a questionable urinary tract infection. Her CTA of her chest was negative for PE secondary to an elevated d-dimer. At this time I feel admission is necessary based on the event along with her leukocytosis and urinary tract infection. She is also found to have a hypoxia off oxygen satting into the 88 to 87% range. Her oxygen levels were remain 92 to 93% on 2 L via nasal cannula. No prior oxygen requirement recorded. She denies any significant shortness of breath at rest, however has noted mild dyspnea on exertion over the last several weeks. Case discussed with Dr. Torres who will admit. Blood cultures sent and ceftriaxone 1 g given HPI <Paresh Espinal NP - Last Filed: 03/15/19 20:17> General Mode of arrival: EMS. Date/Time Provider Initiated Documentation: 03/14/19 13:38. Limitations to Documentation: no limitations. Information obtained by: patient, family, RN/MD and RN notes reviewed. History of Present Illness 73 year old F presents to the emergency department with the chief complaint of Syncopal episode, described as mild, with intensity rated at 2. Quality is described as other (Pressure), and is localized to the chest. Patient started experiencing this hour(s) (1) and it has been other (Improving). Patient notes no other symptoms.. Related Data Home Medications Medication Instructions Recorded Confirmed Cpap 12/24/12 01/24/19 acetaminophen [Tylenol Extra 500 mg PO PRN 12/24/12 03/14/19 Strength] aspirin [Ecotrin Low Strength] 81 mg PO DAILY tab-cap 12/24/12 03/14/19 ibuprofen 2 cap PO PRN tab-cap 12/24/12 03/14/19 vitamin E (dl, acetate) 400 unit PO DAILY 12/24/12 03/14/19 cholecalciferol (vitamin D3) 2,000 unit PO DAILY 07/18/15 03/14/19 [Vitamin D3] magnesium oxide 400 mg PO DAILY 01/21/16 03/14/19 blood-glucose meter [FreeStyle #1 kit 04/14/17 01/24/19 Lite Meter] blood sugar diagnostic #100 strip 04/13/18 01/24/19 lisinopril 10 mg tablet 10 mg PO DAILY #90 tab-cap 04/13/18 03/14/19 metformin 500 mg tablet 500 mg PO BID #180 tab-cap 04/13/18 03/14/19 lorazepam 1 mg tablet 1 mg PO HS PRN #20 tab 07/19/18 03/14/19 omeprazole 20 mg capsule,delayed 20 mg PO BID #180 tab-cap 07/19/18 03/14/19 release pravastatin 40 mg tablet 40 mg PO QHS #90 tab-cap 07/19/18 03/14/19 sertraline 100 mg tablet 100 mg PO DAILY #90 tab-cap 07/19/18 03/14/19 levothyroxine 88 mcg tablet 88 mcg PO DAILY #90 tab-cap 09/12/18 03/14/19 Eye Drop Tears 2 drp OPHTHALMIC (EYE) TID-QID PRN 12/01/18 03/14/19 docusate sodium 100 mg capsule 100 mg PO TID cap 01/24/19 03/14/19 furosemide 20 mg tablet 20 mg PO DAILY #90 tab-cap 01/24/19 01/24/19 ropinirole 1 mg tablet 1 mg PO HS tab 01/24/19 03/14/19 Previous Rx's Medication Instructions Recorded blood-glucose meter [FreeStyle #1 kit 04/14/17 Lite Meter] blood sugar diagnostic #100 strip 04/13/18 lisinopril 10 mg tablet 10 mg PO DAILY #90 tab-cap 04/13/18 metformin 500 mg tablet 500 mg PO BID #180 tab-cap 04/13/18 lorazepam 1 mg tablet 1 mg PO HS PRN #20 tab 07/19/18 omeprazole 20 mg capsule,delayed 20 mg PO BID #180 tab-cap 07/19/18 release pravastatin 40 mg tablet 40 mg PO QHS #90 tab-cap 07/19/18 sertraline 100 mg tablet 100 mg PO DAILY #90 tab-cap 07/19/18 levothyroxine 88 mcg tablet 88 mcg PO DAILY #90 tab-cap 09/12/18 furosemide 20 mg tablet 20 mg PO DAILY #90 tab-cap 01/24/19 Allergies Allergy/AdvReac Type Severity Reaction Status Date / Time adhesive tape Allergy Intermediate blistering Verified 03/14/19 13:53 atorvastatin AdvReac Severe SEVERE LEG Unverified 03/14/19 13:53 PAIN iron AdvReac Severe SEVERE ABD Unverified 03/14/19 13:53 PAIN codeine AdvReac Intermediate H/A Unverified 03/14/19 13:53 morphine AdvReac Nausea Verified 03/14/19 13:53 General Stated Complaint: Chest Pain DAVID: 3 Review of Systems <Paresh Espinal NP - Last Filed: 03/15/19 20:17> Constitutional Denies chills and Denies fever(s) Cardiovascular Reports as per HPI, Reports chest pain, Denies chest pain with activity, Reports syncope, Denies irregular heart rhythm, Denies palpitations and Denies dyspnea Respiratory Denies cough, Denies hemoptysis and Denies dyspnea Gastrointestinal Denies abdominal pain, Reports diarrhea, Denies nausea and Denies vomiting Neurologic Reports syncope Endocrine Denies palpitations PFSH <Paresh Espinal NP - Last Filed: 03/15/19 20:17> Medical History Adenomatous polyp of colon Anxiety Avila esophagus Cancer of left breast (Acute ~11/11/18) 11/11/18 DR. SHORT; [place], [place] [facility] [place] 3 WEEKS FOR 12 WEEKS[place]kb Cortical cataract of left eye (Resolved) Cortical cataract of right eye (Resolved) Diabetes (Chronic) H/O: hysterectomy (Chronic) History of hysterectomy (Chronic) History of hysterectomy (Chronic) Hyperlipidemia Hypertension Hypothyroid Nuclear sclerotic cataract of left eye (Resolved) Nuclear sclerotic cataract of right eye (Resolved) Obesity, Class III, 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 skin cancer Uterine cancer (Acute) Ventral hernia (Acute) Surgical History Biopsy of breast x 5-6; cyst aspirated 1993 section Endometrial Biopsy (~2006) NEG S/P left mastectomy (Acute ~12/07/18) with sentinel lymph node biopsy Status post cataract extraction and insertion of intraocular lens of left eye (Chronic 05/30/18) Status post cataract extraction and insertion of intraocular lens of right eye (Resolved 05/16/18) Status post cataract extraction and insertion of intraocular lens of right eye (Chronic 05/16/18) Family History Mother Diabetes Essential hypertension Personal history of malignant neoplasm Stomach Heart disease Hyperlipidemia Stroke Father No problems noted. Sister Essential hypertension Hyperlipidemia Asthma Brother Alcohol abuse Essential hypertension Personal history of malignant neoplasm Esophagus Depression Hyperlipidemia Grandfather Personal history of malignant neoplasm Heart disease Asthma Grandfather Heart disease Grandmother Heart disease Grandmother Essential hypertension Heart disease Hyperlipidemia Stroke Brother Diabetes Essential hypertension CHF (congestive heart failure) Heart disease Hyperlipidemia COPD (chronic obstructive pulmonary disease) Asthma Daughter Depression Social History Smoking/Tobacco Use Status: Never Alcohol Intake: never Drug use: Never Substance use type: does not use 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 Exam <Paresh Espinal NP - Last Filed: 03/15/19 20:17> Const General: cooperative, healthy appearing, comfortable, no acute distress, not diaphoretic and not ill appearing Nutritional Appearance: average body habitus Orientation: alert, awake and oriented x3 Limitations: mental status not altered Neck Neck: normal visual inspection, full ROM, trachea midline, supple and no anterior neck swelling Carotids: normal carotid upstroke and no bruits Chest Chest: normal inspection of the chest Resp Effort & Inspection: normal respiratory effort and able to speak in complete sentences Auscultation: clear to auscultation bilaterally Cardio Jugular venous pressure: no JVD Palpation: normal PMI Rate: tachycardic Rhythm: regular rhythm Heart Sounds: S1 normal, S2 normal, no click, no gallops, no murmurs and no rubs Bruits: no abdominal aortic bruits and no carotid bruits Pulses: radial pulses present bilaterally 2+ GI Inspection: normal to inspection Palpation: soft, no aortic enlargement, no pulsatile masses and nontender Auscultation: normal bowel sounds Skin General skin exam: no rashes or lesions noted Neuro General: alert, awake, oriented x3, tone normal and moves all extremities Course <Paresh Espinal NP - Last Filed: 03/15/19 20:17> Vital Signs Temperature 36.5 C 03/14/19 13:26 Pulse 104 H 03/14/19 13:26 Respiratory Rate 20 03/14/19 13:26 Blood Pressure 110/58 L 03/14/19 13:26 Pulse Oximetry 93 L 03/14/19 13:26 Temperature 36.5 C 03/14/19 13:26 Temperature Source Temporal Artery Scan 03/14/19 13:26 Pulse 104 H 03/14/19 13:26 Respiratory Rate 18 03/14/19 13:35 Respiratory Effort Non-Labored 03/14/19 13:35 Respiratory Depth Normal 03/14/19 13:35 Respiratory Pattern Normal 03/14/19 13:35 Blood Pressure 110/58 L 03/14/19 13:26 Blood Pressure Position Supine 03/14/19 13:26 Pulse Oximetry 93 L 03/14/19 13:26 Oxygen Delivery Method Nasal Cannula 03/14/19 13:26 Oxygen Flow Rate 2 03/14/19 13:26 Pain Level 3 03/14/19 13:35 Sign Out <Paresh Espinal NP - Last Filed: 03/15/19 20:17> Sign Out Data: Sign Out Comment: Patient signed out pending completion of magnesium, additional fluids, second 3-hour troponin. Last updated by Paresh Espinal NP at 03/14/19 16:14
[2019-03-14] MEDS: Normal Saline 500 ML IV ×2 (14:01→15:54)
[2019-03-14 14:06] LABS: Abs Immature Grans 0.93 k/cumm (0.0-0.09); HCT 39.5 % (36.0-46.0); HGB 12.7 g/dL (12.0-15.5); Mean Corp. HGB Concentration 32.2 g/dL (32.0-36.0); Mean Corpuscular Hemoglobin 27.9 pg (27.0-33.0); Mean Corpuscular Volume 86.6 fL (80-95); Mean Platelet Volume 10.9 fL (8.0-11.0); Platelet Count 399 x1000/uL (130-400); RBC 4.56 m/cumm (4.00-5.20)
[2019-03-14 14:12] LABS: White Blood Cell Count 27.25 k/cumm (4.4-10.8)
[2019-03-14 14:14] LABS: INR 1.1 (0.9-1.1); Prothrombin Time 10.8 sec (9.3-11.0)
[2019-03-14 14:17] LABS: ALT 19 U/L (14-59); AST 12 U/L (15-37); Albumin 3.1 g/dL (3.4-5.0); Alkaline Phosphatase 101 U/L (46-116); Anion Gap 12.3 mmol/L (3-11); BUN 26 mg/dL (7-18); Bilirubin, Total 0.3 mg/dL (0.2-1.0); CO2 22.7 mmol/L (21.0-32.0); CREATININE 1.16 mg/dL (0.55-1.02); Calcium 8.7 mg/dL (8.5-10.1); Chloride 102 mmol/L (98-107); Estimated GFR 45.92 (mL/min/1.73m2); Glucose 276 mg/dL (70-100); Magnesium 1.3 mg/dL (1.8-2.4); NT-proBNP 247 pg/mL; Potassium 3.8 mmol/L (3.5-5.1); Sodium 137 mmol/L (136-145); Total Protein 6.9 g/dL (6.4-8.2)
[2019-03-14 14:18] LABS: Troponin I < 0.05 ng/mL (0.00-0.06)
[2019-03-14 14:20] LABS: Absolute Eosinophil Count 0.27 k/cumm (0.0-0.7); Absolute Lymphocyte Count 1.64 k/cumm (1.2-3.4); Absolute Monocyte Count 0.82 k/cumm (0.11-0.7); Absolute Neutrophil Count 22.35 k/cumm (1.2-6.7); Diff Comment Manual Differential; RBC Morphology Normal
[2019-03-14 14:29] LABS: D-Dimer > 7500 ng/mlFEU (<500)
--- NOTE | 2019-03-14 14:57 | DI.CT_ITS ---
SYMPTOMS/DIAGNOSIS: SYNCOPE, ELEVATED D-DIMER CT ANGIOGRAPHY, CHEST: CT angiography was performed with multi slice acquisition and multi planar and 3D reconstruction. CT angiography of the chest was performed with a bolus infusion of 100 cc of Omnipaque 350. Images obtained through the upper abdomen show unremarkable appearance of the visualized portions of the liver and spleen. Heart appears mildly enlarged. There is poor inspiration. No pleural effusion. No pulmonary consolidation. No pulmonary embolism. Thoracic aorta is unremarkable with no aneurysm or dissection. No mediastinal or hilar adenopathy. CONCLUSION: Negative CTA, chest.
[2019-03-14] MEDS: MAGNESIUM SULFATE 2 GM/50 ML BAG IVPB (15:46)
[2019-03-14 17:02] LABS: Bilirubin Negative (Negative); Blood Trace-intact (Negative); Clarity Clear (Clear); Glucose 100 mg/dL (Negative); Ketones Negative (Negative); Leukocyte Esterase Small (Negative); Nitrite Negative (Negative); Specific Gravity <= 1.005 (1.005-1.025); Urobilinogen 0.2 EU/dL (Up TO 0.2)
[2019-03-14 17:15] LABS: Bacteria Moderate HPF (Negative); Crystals Negative HPF (Negative); Epithelial Cells Few HPF (Negative); Mucus Moderate (Negative); Other Cells Few Renal (Negative); WBC 20-50 HPF (0-5)
[2019-03-14 17:16] LABS: C & S Indicated? Yes; Casts Negative LPF (Negative)
[2019-03-14 17:31] LABS: Troponin I < 0.05 ng/mL (0.00-0.06)
[2019-03-14] MEDS: Normal Saline Flush 10 ML SYR IVP ×2 (18:10→20:49)
--- NOTE | 2019-03-14 18:47 | HPE_ITS ---
Date of service: 03/14/19 Time of Service: 18:47 Assessment and Plan (1) Syncope: Current visit: Yes Status: Chronic Multiple issues, but I think a reasonable narrative puts this together as follows: in setting of hypovolemia secondary to poor PO, perhaps exacerbated by emerging UTI, had orthostatic epsisode leading to dominique syncope. This seems to have resolved after IV hydration here. The CP is likely non-cardiac, and the clue about pill dysphagia suggests esophageal spasm.. I cannot at present account for the desaturation noted initially but this seems to have resolved, at least to a good degree. In short, will begin antibiotics, complete r/o enyzmes and watch on telemetry. Reviewed Advance Directives, wishes Full Code. History of Present Illness Chief Complaint: syncope Narrative: 73 female with breast CA. Today while getting chemo felt a warm feeling in her arm as the infusion was starting. She stood up -- thought this might heelp -- and got lightheaded. She sat down and then blacked out. VS at the scene show BP 82/sys with pulse 108 (unclear at what point in the spell these were taken. Patient admits she has not been taking good PO recently. In any case she then developed some pressure in chesst but importantly notes that during this she tried to swallow a pill but felt it was getting stuck. In ER EKG negative and troponin x 2 as well. She was then noted to have leukocytosis (27K) and pyuria, and reports several days of dysuria. Initially here in ER she was desaturating to high 80s off O2, but to my interview she is holdding in 90s off oxygen. She had a negative CTA of chest. She is admited for further management. At present she states she is feeling well except for being a bit tired. Review of Systems Review of Systems All systems reviewed & are unremarkable except as noted in HPI and below PFSH Medical History Adenomatous polyp of colon Anxiety Avila esophagus Cancer of left breast (Acute ~11/11/18) 11/11/18 DR. SHORT; [place], [place] 02/21/19[place] [facility] [place] 3 WEEKS FOR 12 WEEKS[place]kb Cortical cataract of left eye (Resolved) Cortical cataract of right eye (Resolved) Diabetes (Chronic) H/O: hysterectomy (Chronic) History of hysterectomy (Chronic) History of hysterectomy (Chronic) Hyperlipidemia Hypertension Hypothyroid Nuclear sclerotic cataract of left eye (Resolved) Nuclear sclerotic cataract of right eye (Resolved) Obesity, Class III, 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 skin cancer Uterine cancer (Acute) Ventral hernia (Acute) Surgical History Biopsy of breast x 5-6; cyst aspirated 1993 section Endometrial Biopsy (~2006) NEG S/P left mastectomy (Acute ~12/07/18) with sentinel lymph node biopsy Status post cataract extraction and insertion of intraocular lens of left eye (Chronic 05/30/18) Status post cataract extraction and insertion of intraocular lens of right eye (Resolved 05/16/18) Status post cataract extraction and insertion of intraocular lens of right eye (Chronic 05/16/18) Family History Mother Diabetes Essential hypertension Personal history of malignant neoplasm Stomach Heart disease Hyperlipidemia Stroke Father No problems noted. Sister Essential hypertension Hyperlipidemia Asthma Brother Alcohol abuse Essential hypertension Personal history of malignant neoplasm Esophagus Depression Hyperlipidemia Grandfather Personal history of malignant neoplasm Heart disease Asthma Grandfather Heart disease Grandmother Heart disease Grandmother Essential hypertension Heart disease Hyperlipidemia Stroke Brother Diabetes Essential hypertension CHF (congestive heart failure) Heart disease Hyperlipidemia COPD (chronic obstructive pulmonary disease) Asthma Daughter Depression Social History Smoking/Tobacco Use Status: Never Alcohol Intake: never Drug use: Never Substance use type: does not use 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 Meds Home Medications Medication Instructions Recorded Confirmed Type Cpap 12/24/12 01/24/19 History acetaminophen [Tylenol Extra 500 mg PO PRN 12/24/12 03/14/19 History Strength] aspirin [Ecotrin Low Strength] 81 mg PO DAILY tab-cap 12/24/12 03/14/19 History ibuprofen 2 cap PO PRN tab-cap 12/24/12 03/14/19 History vitamin E (dl, acetate) 400 unit PO DAILY 12/24/12 03/14/19 History cholecalciferol (vitamin D3) 2,000 unit PO DAILY 07/18/15 03/14/19 History [Vitamin D3] magnesium oxide 400 mg PO DAILY 01/21/16 03/14/19 History blood-glucose meter [FreeStyle #1 kit 04/14/17 01/24/19 Rx Lite Meter] blood sugar diagnostic #100 strip 04/13/18 01/24/19 Rx lisinopril 10 mg tablet 10 mg PO DAILY #90 tab-cap 04/13/18 03/14/19 Rx metformin 500 mg tablet 500 mg PO BID #180 tab-cap 04/13/18 03/14/19 Rx lorazepam 1 mg tablet 1 mg PO HS PRN #20 tab 07/19/18 03/14/19 Rx omeprazole 20 mg capsule,delayed 20 mg PO BID #180 tab-cap 07/19/18 03/14/19 Rx release pravastatin 40 mg tablet 40 mg PO QHS #90 tab-cap 07/19/18 03/14/19 Rx sertraline 100 mg tablet 100 mg PO DAILY #90 tab-cap 07/19/18 03/14/19 Rx levothyroxine 88 mcg tablet 88 mcg PO DAILY #90 tab-cap 09/12/18 03/14/19 Rx Eye Drop Tears 2 drp OPHTHALMIC (EYE) TID-QID PRN 12/01/18 03/14/19 History docusate sodium 100 mg capsule 100 mg PO TID cap 01/24/19 03/14/19 History furosemide 20 mg tablet 20 mg PO DAILY #90 tab-cap 01/24/19 01/24/19 Rx ropinirole 1 mg tablet 1 mg PO HS tab 01/24/19 03/14/19 History Allergies Allergy/AdvReac Type Severity Reaction Status Date / Time adhesive tape Allergy Intermediate blistering Verified 03/14/19 13:53 atorvastatin AdvReac Severe SEVERE LEG Unverified 03/14/19 13:53 PAIN iron AdvReac Severe SEVERE ABD Unverified 03/14/19 13:53 PAIN codeine AdvReac Intermediate H/A Unverified 03/14/19 13:53 morphine AdvReac Nausea Verified 03/14/19 13:53 Exam Narrative Exam Narrative: 110/51, 79, 26, afebrile. HEENT atraumatic; neck supple; lungs c lear; heart RRR w/o murmur; abdomen soft NT; extremities no pitting edema but feet puffy Results Labs : 03/14/19 13:50 03/14/19 13:50 Laboratory Results - last 24 hr 03/14/19 03/14/19 03/14/19 13:50 13:50 13:50 WBC 27.25 H* D RBC 4.56 Hgb 12.7 D Hct 39.5 D MCV 86.6 MCH 27.9 MCHC 32.2 RDW 16.0 H Plt Count 399 D MPV 10.9 Immature Gran % See Differential Neutrophils % 80.0 Band Neutrophils % 2.0 Lymphocytes % 6.0 Monocytes % 3.0 Eosinophils % 1.0 Basophils % 0.0 Absolute Neutrophils 22.35 H Absolute Lymphocytes 1.64 Absolute Monocytes 0.82 H Absolute Eosinophils 0.27 Absolute Basophils 0.00 Differential Comment Manual differential RBC Morphology Normal PT 10.8 INR 1.1 APTT 21.0 D-Dimer Sodium 137 Potassium 3.8 Chloride 102 Carbon Dioxide 22.7 Anion Gap 12.3 H BUN 26 H Creatinine 1.16 H Estimated GFR/1.73 m2 45.92 Glucose 276 H D Calcium 8.7 Magnesium 1.3 L Total Bilirubin 0.3 AST 12 L ALT 19 Alkaline Phosphatase 101 Troponin I < 0.05 NT-Pro-B Natriuret Pep 247 Total Protein 6.9 Albumin 3.1 L Urine Color Urine Clarity Urine pH Ur Specific [place] Urine Protein Urine Ketones Urine Blood Urine Nitrite Urine Bilirubin Urine Urobilinogen Ur Leukocyte Esterase Urine RBC Urine WBC Ur Epithelial Cells Urine Crystals Urine Bacteria Urine Casts Urine Mucus Urine Other Ur Culture Indicated? Urine Glucose 03/14/19 03/14/19 03/14/19 13:50 16:55 16:58 WBC RBC Hgb Hct MCV MCH MCHC RDW Plt Count MPV Immature Gran % Neutrophils % Band Neutrophils % Lymphocytes % Monocytes % Eosinophils % Basophils % Absolute Neutrophils Absolute Lymphocytes Absolute Monocytes Absolute Eosinophils Absolute Basophils Differential Comment RBC Morphology PT INR APTT D-Dimer > 7500 H Sodium Potassium Chloride Carbon Dioxide Anion Gap BUN Creatinine Estimated GFR/1.73 m2 Glucose Calcium Magnesium Total Bilirubin AST ALT Alkaline Phosphatase Troponin I < 0.05 NT-Pro-B Natriuret Pep Total Protein Albumin Urine Color Yellow Urine Clarity Clear Urine pH 5.0 Ur Specific [place] <= 1.005 Urine Protein 30 H Urine Ketones Negative Urine Blood Trace-intact H Urine Nitrite Negative Urine Bilirubin Negative Urine Urobilinogen 0.2 Ur Leukocyte Esterase Small H Urine RBC 3-5 H Urine WBC 20-50 Ur Epithelial Cells Few Urine Crystals Negative Urine Bacteria Moderate Urine Casts Negative Urine Mucus Moderate Urine Other Few renal Ur Culture Indicated? Yes Urine Glucose 100 Last Vital Signs Temp 36.5 C 03/14/19 13:26 Pulse 79 03/14/19 18:02 Resp 26 H 03/14/19 18:02 BP 110/51 L 03/14/19 18:02 Pulse Ox 93 L 03/14/19 18:02
[2019-03-14] MEDS: cefTRIAXone 1 GM/50 ML BAG IVPB (18:54)
[2019-03-14] MEDS: Lactated Ringers 1,000 ML 80 ML IV (20:48)
[2019-03-14] MEDS: LORazepam 1 MG TAB PO (21:45)
[2019-03-14] MEDS: Pravastatin 40 MG TAB PO (21:46)
[2019-03-14] MEDS: Docusate Sodium 100 MG CAP PO (21:46)
[2019-03-14] MEDS: rOPINIRole 1 MG TAB PO (21:46)
[2019-03-14] MEDS: Omeprazole 20 MG CAPCR PO (21:46)
[2019-03-14 21:57] LABS: Troponin I < 0.05 ng/mL (0.00-0.06)
[2019-03-14] MEDS: Acetaminophen 325 MG TAB 650 MG PO (22:58)
[2019-03-15] VITALS (9 sets, daily range): BP systolic 91–128; BP diastolic 57–72; PULSE 71–80; RESP 16–18; TEMP 36.2–37; O2SAT 92–98
[2019-03-15] MEDS: Acetaminophen 325 MG TAB 650 MG PO ×2 (03:12→20:24)
[2019-03-15 07:26] LABS: HCT 28.9 % (36.0-46.0); HGB 9.1 g/dL (12.0-15.5); Mean Corp. HGB Concentration 31.5 g/dL (32.0-36.0); Mean Corpuscular Hemoglobin 27.7 pg (27.0-33.0); Mean Corpuscular Volume 88.1 fL (80-95); Platelet Count 271 x1000/uL (130-400); RBC 3.28 m/cumm (4.00-5.20); RBC Distribution Width 15.9 % (11.7-14.6); White Blood Cell Count 16.22 k/cumm (4.4-10.8)
[2019-03-15] MEDS: Omeprazole 20 MG CAPCR PO ×2 (08:41→19:59)
[2019-03-15] MEDS: Magnesium Oxide 400 MG TAB PO (08:41)
[2019-03-15] MEDS: Cholecalciferol (Vitamin D3) 1,000 UNIT TAB 2000 UNITS PO (08:41)
[2019-03-15] MEDS: Vitamin E 400 UNITS CAP PO (08:41)
[2019-03-15] MEDS: metFORMIN 500 MG TAB PO ×2 (08:42→17:05)
[2019-03-15] MEDS: Sertraline 50 MG TAB 100 MG PO (08:42)
[2019-03-15] MEDS: Levothyroxine 88 MCG TAB PO (08:42)
[2019-03-15] MEDS: Aspirin E.C. 81 MG TABEC PO (08:42)
--- NOTE | 2019-03-15 09:40 | INITIAL_ITS ---
Care Management Initial Assess REASON FOR HOSPITALIZATION:: Syncope, CP, UTI PAST MEDICAL HISTORY/PAST SURGICAL HISTORY:: Adenomatous polyp of colon, anxiety, gonzalez esophagus, cancer of L breast, cortical cataract bilat, diabetes, hysterectomy, hyperlipidemia, hypertension, hypothyroid, nuclear sclerotic cataract bilat, obesity, squamous cell skin cancer, uterine cancer, ventral hernia, biopsy of breast, section, endometrial biopsy, left mastectomy PREVIOUS FUNCTIONAL STATUS/SOCIAL/FAMILY SUPPORTS:: Myesha resides alone in [place], [place]. Her daughter, son in law and grandson reside right next door and assist with ADLs. Her grandson earns an allowance providing light house duties such as vaccuuming. Myesha is mostly independent at baseline. CURRENT FUNCTIONAL STATUS:: Myesha was sitting up in her chair when CM met with her. She reviewed the events leading up to her admission and her understanding of the treatment plan. She reported anticipating that her chemo treatments would be discontinued though she anticipated beginning radiation treatments soon. She reported her current home situation was going well and she shared no concerns at this time. ADVANCE DIRECTIVES:: On file, daughter Geovanna as agent. Has patient been provided with information about the portal?: Yes Did the patient sign up for the portal?: Yes ((Previously)) CODE STATUS:: Full Code INSURANCE COVERAGE / FINANCIAL ISSUES:: [employer] [place] [email or web address] [facility] CURRENT HOME/COMMUNITY SERVICES/EQUIPMENT:: No current services or equipment. PRIMARY CARE PHYSICIAN:: Navid Avendaño POTENTIAL DISCHARGE NEEDS:: Follow up appointments with PCP. PATIENT/FAMILY EDUCATION NEEDS:: Review discharge instructions, discuss Ask Me Three. ANTICIPATED BARRIERS TO DISCHARGE:: None identified. TRANSPORTATION:: Myesha will transport via private vehicle with her daughter, Geovanna. PLAN:: Myesha will be treated with antibiotics, complete r/o enyzmes and be monitored on telemetry. Myesha will return home when ready per MD. She will follow up with her PCP and plan of care as prescribed. No additional services anticipated at this time. Myesha will transport via private vehicle with her daughterGeovanna.
--- NOTE | 2019-03-15 15:24 | CHAPLAIN ---
Myesha was sitting up in her chair when I visited. She told me about being at [facility] for her chemo treatment and blacking out. She said this was her second of four treatments, every three weeks, and then she'll have radiation. She shared some personal history. Myesha identified her daughter as her support and expects she'll visit later today.
[2019-03-15] MEDS: rOPINIRole 1 MG TAB PO (17:43)
[2019-03-15] MEDS: cefTRIAXone 1 GM/50 ML BAG IV (17:43)
--- NOTE | 2019-03-15 18:52 | PGE_ITS ---
Date of Service Date of service: 03/15/19 Time of Service: 18:52 Assessment and Plan (1) Syncope: Current visit: Yes Status: Chronic Patient was syncope. At this point attributed to dehydration and acute urinary tract infection. She is now well hydrated and has received IV antibiotics. While she had brief dizziness I do not think there is any further concern for repeat syncope. Continue to monitor on telemetry which thus far has shown a sinus rhythm with occasional PVCs. (2) S/P left mastectomy: Current visit: No Status: Acute Patient gets intermittent pain around the left mastectomy incision site. There is nothing there that indicates recurrence or concerning mass. I think there is sensitivity along this incision that is causing her discomfort when the area is palpated. Further follow-up with oncology. I believe she is in line for some follow-up imaging studies in the next few weeks. (3) Diabetes mellitus: Current visit: No Status: Chronic Blood sugars under reasonably good control on present meds. (4) Obstructive sleep apnea syndrome: Current visit: No Status: Acute Home CPAP unit was brought in by her daughter. The plan is for her to wear it tonight as she would usually do so. (5) Restless legs: Current visit: No Status: Acute Patient requesting her Requip be scheduled for 1800 hrs. It does not work if she takes it late at night. (6) Cancer of left breast: Current visit: No Status: Acute Chemotherapy is on hold at this time. Further follow-up is as scheduled at [facility]. Subjective Interval history since last seen: Patient was admitted overnight with an acute syncopal episode x2. Since admission she has been overall feeling better though this evening when she got up to go to the bathroom she briefly felt a bit dizzy. She intermittently does get a discomfort in her left lower chest around the site of her mastectomy scar. Her daughter and grandson were present and had their questions answered. Exam Narrative Exam Narrative: Patient is very pleasant and lucid. She is interactive and coherent. She has no respiratory difficulty. Her lungs sound clear right and left. Her heart sounds are regular. No significant murmur. Her abdomen is quite markedly obese but overall soft and nontender. The left mastectomy site shows a horizontal scar that is well-healed. There is some sensitivity along t he scar site but no nodularity or mass is appreciated. The patient was concerned about a hernia in this region which I did not appreciate. The lower extremities showed trace edema bilaterally. GARTH hose were placed. Neurologically there are no focal deficits. Objective Objective Clinical Data: Abnormal lab results 03/15/19 Range/Units 06:50 WBC 16.22 H D (4.4-10.8) k/cumm RBC 3.28 L (4.00-5.20) m/cumm Hgb 9.1 L D (12.0-15.5) g/dL Hct 28.9 L D (36.0-46.0) % MCHC 31.5 L (32.0-36.0) g/dL RDW 15.9 H (11.7-14.6) % Vital Signs Temperature 36.4 C L 03/15/19 07:20 Temperature Source Tympanic 03/15/19 07:20 Pulse 74 03/15/19 15:00 Pulse Rhythm Regular 03/15/19 16:24 Pulse Strength Normal 03/14/19 18:02 Pulse 77 03/14/19 19:31 Respiratory Rate 18 03/15/19 07:20 Respiratory Effort Non-Labored 03/15/19 16:24 Respiratory Depth Normal 03/15/19 16:24 Respiratory Pattern Normal 03/15/19 16:24 Blood Pressure 108/69 03/15/19 07:20 Blood Pressure Mean 67 03/14/19 19:31 Blood Pressure Position Supine 03/14/19 18:02 Pulse Oximetry 95 03/15/19 17:25 Oxygen Delivery Method Nasal Cannula 03/15/19 17:25 Oxygen Flow Rate 1 03/15/19 17:25 Pain Level 0 03/15/19 07:20 Intake & Output 03/14/19 03/15/19 03/15/19 23:59 11:59 23:59 Intake Total 2059 / 2059 722 / 872 150 / 872 Output Total 300 / 300 850 / 850 Balance 1760 / 1760 -128 / 22 150 / 22 Weight 105.551 kg Intake: IV 1560 / 1560 572 / 572 Oral 500 / 500 150 / 300 150 / 300 Output: Urine 300 / 300 850 / 850 Other: Urine Color Yellow Yellow Urine Appearance Clear Clear Clear Urine Odor Normal Comment pt voiding in toilet; urine not measured at this time Stool Size Large Stool Characteristics Soft Liquid Brown Voiding Methods Toilet Toilet Laboratory Results WBC 16.22 k/cumm (4.4-10.8) H D 03/15/19 06:50 RBC 3.28 m/cumm (4.00-5.20) L 03/15/19 06:50 Hgb 9.1 g/dL (12.0-15.5) L D 03/15/19 06:50 Hct 28.9 % (36.0-46.0) L D 03/15/19 06:50 MCV 88.1 fL (80-95) 03/15/19 06:50 MCH 27.7 pg (27.0-33.0) 03/15/19 06:50 MCHC 31.5 g/dL (32.0-36.0) L 03/15/19 06:50 RDW 15.9 % (11.7-14.6) H 03/15/19 06:50 Plt Count 271 x1000/uL (130-400) D 03/15/19 06:50 MPV 11.0 fL (8.0-11.0) 03/15/19 06:50 Immature Gran % See Differential 03/14/19 13:50 80.0 03/14/19 13:50 2.0 % 03/14/19 13:50 6.0 03/14/19 13:50 3.0 03/14/19 13:50 1.0 03/14/19 13:50 0.0 03/14/19 13:50 Absolute Neutrophils 22.35 k/cumm (1.2-6.7) H 03/14/19 13:50 Absolute Lymphocytes 1.64 k/cumm (1.2-3.4) 03/14/19 13:50 Absolute Monocytes 0.82 k/cumm (0.11-0.7) H 03/14/19 13:50 Absolute Eosinophils 0.27 k/cumm (0.0-0.7) 03/14/19 13:50 Absolute Basophils 0.00 k/cumm (0.0-0.2) 03/14/19 13:50 Manual differential 03/14/19 13:50 RBC Morphology Normal 03/14/19 13:50 PT 10.8 sec (9.3-11.0) 03/14/19 13:50 INR 1.1 (0.9-1.1) 03/14/19 13:50 APTT 21.0 sec (21.0-31.4) 03/14/19 13:50 > 7500 ng/mlFEU (<500) H 03/14/19 13:50 Sodium 137 mmol/L (136-145) 03/14/19 13:50 Potassium 3.8 mmol/L (3.5-5.1) 03/14/19 13:50 Chloride 102 mmol/L (98-107) 03/14/19 13:50 Carbon Dioxide 22.7 mmol/L (21.0-32.0) 03/14/19 13:50 12.3 mmol/L (3-11) H 03/14/19 13:50 BUN 26 mg/dL (7-18) H 03/14/19 13:50 1.16 mg/dL (0.55-1.02) H 03/14/19 13:50 45.92 (mL/min/1.73m2) 03/14/19 13:50 Glucose 276 mg/dL (70-100) H D 03/14/19 13:50 Calcium 8.7 mg/dL (8.5-10.1) 03/14/19 13:50 Magnesium 1.3 mg/dL (1.8-2.4) L 03/14/19 13:50 0.3 mg/dL (0.2-1.0) 03/14/19 13:50 AST 12 U/L (15-37) L 03/14/19 13:50 ALT 19 U/L (14-59) 03/14/19 13:50 101 U/L (46-116) 03/14/19 13:50 < 0.05 ng/mL (0.00-0.06) 03/14/19 21:15 NT-Pro-B Natriuret Pep 247 pg/mL (-299) 03/14/19 13:50 6.9 g/dL (6.4-8.2) 03/14/19 13:50 3.1 g/dL (3.4-5.0) L 03/14/19 13:50 Yellow (Yellow) 03/14/19 16:55 Clear (Clear) 03/14/19 16:55 5.0 (5-8) 03/14/19 16:55 Ur Specific [place] <= 1.005 (1.005-1.025) 03/14/19 16:55 30 mg/dL (Negative) H 03/14/19 16:55 Negative mg/dL (Negative) 03/14/19 16:55 Trace-intact (Negative) H 03/14/19 16:55 Negative (Negative) 03/14/19 16:55 Negative (Negative) 03/14/19 16:55 0.2 EU/dL (Up TO 0.2) 03/14/19 16:55 Ur Leukocyte Esterase Small (Negative) H 03/14/19 16:55 3-5 (0-2) H 03/14/19 16:55 20-50 HPF (0-5) 03/14/19 16:55 Ur Epithelial Cells Few HPF (Negative) 03/14/19 16:55 Negative HPF (Negative) 03/14/19 16:55 Moderate HPF (Negative) 03/14/19 16:55 Negative LPF (Negative) 03/14/19 16:55 Moderate (Negative) 03/14/19 16:55 Few renal (Negative) 03/14/19 16:55 Ur Culture Indicated? Yes 03/14/19 16:55 100 mg/dL (Negative) 03/14/19 16:55
[2019-03-15] MEDS: Docusate Sodium 100 MG CAP PO (19:59)
[2019-03-15] MEDS: Pravastatin 40 MG TAB PO (20:08)
[2019-03-15] MEDS: LORazepam 1 MG TAB PO (20:11)
[2019-03-16 07:29] LABS: HCT 28.8 % (36.0-46.0); HGB 8.8 g/dL (12.0-15.5); Mean Corp. HGB Concentration 30.6 g/dL (32.0-36.0); Mean Corpuscular Hemoglobin 27.4 pg (27.0-33.0); Mean Corpuscular Volume 89.7 fL (80-95); Mean Platelet Volume 10.5 fL (8.0-11.0); Platelet Count 230 x1000/uL (130-400); RBC 3.21 m/cumm (4.00-5.20); RBC Distribution Width 15.9 % (11.7-14.6); White Blood Cell Count 9.38 k/cumm (4.4-10.8)
[2019-03-16 07:36] LABS: Anion Gap 7.8 mmol/L (3-11); BUN 22 mg/dL (7-18); CO2 26.2 mmol/L (21.0-32.0); CREATININE 1.03 mg/dL (0.55-1.02); Calcium 8.3 mg/dL (8.5-10.1); Chloride 106 mmol/L (98-107); Estimated GFR 52.67 (mL/min/1.73m2); Glucose 100 mg/dL (70-100); Potassium 4.4 mmol/L (3.5-5.1); Sodium 140 mmol/L (136-145)
[2019-03-16 07:45] VITALS: BP 113/70; PULSE 79; RESP 21; TEMP 36.5; O2SAT 92
[2019-03-16 07:49] VITALS: PULSE 83
[2019-03-16 07:52] LABS: Absolute Eosinophil Count 0.09 k/cumm (0.0-0.7); Absolute Lymphocyte Count 1.13 k/cumm (1.2-3.4); Absolute Monocyte Count 0.56 k/cumm (0.11-0.7)
[2019-03-16 07:54] LABS: Diff Comment Manual Differential; RBC Morphology Normal
[2019-03-16] MEDS: Vitamin E 400 UNITS CAP PO (08:14)
[2019-03-16] MEDS: Cholecalciferol (Vitamin D3) 1,000 UNIT TAB 2000 UNITS PO (08:15)
[2019-03-16] MEDS: Aspirin E.C. 81 MG TABEC PO (08:15)
[2019-03-16] MEDS: Levothyroxine 88 MCG TAB PO (08:15)
[2019-03-16] MEDS: Omeprazole 20 MG CAPCR PO (08:15)
[2019-03-16] MEDS: Docusate Sodium 100 MG CAP PO (08:15)
[2019-03-16] MEDS: metFORMIN 500 MG TAB PO (08:15)
[2019-03-16] MEDS: Magnesium Oxide 400 MG TAB PO (08:15)
[2019-03-16] MEDS: Sertraline 50 MG TAB 100 MG PO (08:16)
[2019-03-16] MEDS: Acetaminophen 325 MG TAB 650 MG PO (09:39)
[2019-03-16 09:55] LABS: Magnesium 1.7 mg/dL (1.8-2.4)
--- NOTE | 2019-03-16 10:15 | PDOC.CMDIS ---
LACE Index Scoring Tool - Questions: Length of Stay (in days): 2 Acuity (Admit via E.D.?): Yes Comorbidities: Diabetes w/o Complication, Any Tumor E.D. Visits: 1 - Answers: Total Score: 9 Risk of Readmission: Low Risk Care Management Discharge Reason for Hospitalization: Syncope, CP, UTI Discharge Plan: Myesha will return home when ready per MD. She will follow up with her PCP and plan of care as prescribed. No additional services anticipated at this time. Myesha will transport via private vehicle with her daughter, Geovanna. Patient/Family Education Needs: Review discharge instructions, discuss Ask Me Three.
--- NOTE | 2019-03-16 11:23 | W.PM.DS.N ---
Date of service: 03/16/19 Time of Service: 11:24 DS: Diagnosis Discharge Diagnosis (1) Syncope: Start date: 03/16/19 Start time: 11:24 Status: Chronic Asessment and Plan: Resolved at this time. Follow up with oncology as scheduled. Drink plenty of fluids/ (2) S/P left mastectomy: Start date: 03/16/19 Start time: 11:25 Status: Acute (3) Diabetes mellitus: Status: Chronic (4) Obstructive sleep apnea syndrome: Status: Acute (5) Restless legs: Status: Acute (6) Cancer of left breast: Status: Acute Discharge Plan Disposition Patient Disposition: HOME Condition: Good Discharge Details Chief Complaint: Chest Pain Clinical Impression: Syncope, Leukocytosis, Acute UTI, Hypoxia Reason For Visit: SYNCOPE, CP, UTI Admit Date/Time: 03/14/19 19:00 Admit Provider: Andrei Vann Attending Provider: Andrei Vann Primary Care Provider: Navid Avendaño ED Provider: Dragan Barajas [facility] Course Hospital Course: 73 y.o female with breast CA. While getting chemo on 03/14 had a syncopal episode. She was then admitted to [facility] and hydrated with fluids which seemed to resolve her syncope. She also had been having poor PO intake contributing to her hypovolemia. Cardiac workup was negative on serial troponins. EKG preformed with no irregular beats or elevations. She did have leukocytosis and pyuria, with several days of dysuria. CTA of the chest was negative. During the course of the hospital stay she had 3 days of ceftriaxone although Urinalysis yielded small leukocyte esterase, no nitrates 3-5 RBC and 20-50 WBC. Urine culture with less than 10,000 colonies. However given her symptoms she was treated and no longer experiencing urinary sx. She is feeling better today. No dizziness, nausea or vomiting. H/H is stable at 8.8/28.8. She appears and feeling well enough to go home. She has a f/u appt with oncology and will f/u as scheduled. She denies CP, SOB, N/V/D Home Meds and New Rx's Prescriptions: Continued docusate sodium 100 mg capsule 100 mg PO TID RF: 0 furosemide 20 mg tablet 20 mg PO DAILY Qty: 90 RF: 3 metformin 500 mg tablet 500 mg PO BID Qty: 180 RF: 4 lisinopril 10 mg tablet 10 mg PO DAILY Qty: 90 RF: 4 (DME) FreeStyle Lite Strips strip 1 strip Miscellaneous DAILY Qty: 100 RF: 4 ropinirole 1 mg tablet 1 mg PO HS RF: 0 lorazepam 1 mg tablet 1 mg PO HS PRN (Reason: insomnia) Qty: 20 RF: 0 omeprazole 20 mg capsule,delayed release(DR/EC) 20 mg PO BID Qty: 180 RF: 4 pravastatin 40 mg tablet 40 mg PO QHS Qty: 90 RF: 4 sertraline 100 mg tablet 100 mg PO DAILY Qty: 90 RF: 4 ibuprofen 200 MG capsule 2 cap PO PRN RF: 0 aspirin [Ecotrin Low Strength] 81 MG tablet,delayed release (DR/EC) 81 mg PO DAILY RF: 0 acetaminophen [Tylenol Extra Strength] 500 MG tablet 500 mg PO PRN RF: 0 vitamin E (dl, acetate) 400 UNIT capsule 400 unit PO DAILY RF: 0 CPAP RF: 0 cholecalciferol (vitamin D3) [Vitamin D3] 2,000 UNIT capsule 2,000 unit PO DAILY RF: 0 magnesium oxide 400 MG capsule 400 mg PO DAILY RF: 0 (DME) blood-glucose meter [FreeStyle Lite Meter] 1 EACH kit 1 ea Miscellaneous DAILY Qty: 1 RF: 0 levothyroxine 88 mcg tablet 88 mcg PO DAILY Qty: 90 RF: 4 Eye Drop Tears 1-0.2-0.2 % Drops 2 drp OPHTHALMIC (EYE) TID-QID PRNRF: 0 Discharge Instructions Instructions: Syncope (GEN), Acute Abdominal Pain (GEN), Dizziness (GEN) Activity:: Activity as Tolerated Equipment/Supplies:: No Equipment Needed Diet:: As Tolerated Discharge Orders Discharge Orders: Discharge Order (Routine); Ordered 03/16/19 Ordered By: Bibi Feliz DS: Summary Status at Discharge Functional status at discharge: independent ambulation Overall status at discharge: patient is back to baseline Mental Status: mental status grossly normal Speech and Movement: speech and movement normal Mood: congruent mood Affect: normal affect Exam Narrative Exam Narrative: Patient is very pleasant and lucid. She is interactive and coherent. She has no respiratory difficulty. Her lungs sound clear right and left. Her heart sounds are regular. No significant murmur. Her abdomen is quite markedly obese but overall soft and nontender. The left mastectomy site shows a horizontal scar that is well-healed. There is some sensitivity along the scar site but no nodularity or mass is appreciated. The lower extremities showed trace edema bilaterally. GARTH hose were placed. Neurologically there are no focal deficits. Psych Mental Status: mental status grossly normal Speech and Movement: speech and movement normal Mood: congruent mood Affect: normal affect DS: Data Vitals/I&O Vitals and I&O: Vital Signs Temperature 36.5 C 03/16/19 07:45 Temperature Source Tympanic 03/16/19 07:45 Pulse 83 03/16/19 07:49 Pulse Rhythm Regular 03/16/19 08:49 Pulse Strength Normal 03/14/19 18:02 Pulse 77 03/14/19 19:31 Respiratory Rate 21 03/16/19 07:45 Respiratory Effort Non-Labored 03/16/19 08:49 Respiratory Depth Normal 03/16/19 08:49 Respiratory Pattern Normal 03/16/19 08:49 Blood Pressure 113/70 03/16/19 07:45 Blood Pressure Mean 67 03/14/19 19:31 Blood Pressure Position Supine 03/14/19 18:02 Pulse Oximetry 92 L 03/16/19 07:45 Oxygen Delivery Method Room Air 03/16/19 07:45 Oxygen Flow Rate 0 03/16/19 07:45 Pain Level 4 03/16/19 09:39 Intake & Output 03/15/19 03/15/19 03/16/19 11:59 23:59 11:59 Intake Total 722 / 1569 847 / 1569 250 / 250 Output Total 850 / 1350 500 / 1350 Balance -128 / 219 347 / 219 250 / 250 Intake: IV 572 / 1194 622 / 1194 Oral 150 / 375 225 / 375 250 / 250 Output: Urine 850 / 1350 500 / 1350 Other: Urine Color Yellow Yellow Urine Appearance Clear Cloudy Urine Odor Normal Normal Comment pt voiding in toilet; urine not measured at this time Stool Size Large Stool Characteristics Soft Liquid Brown Voiding Methods Toilet Toilet Data Completed and Pending Completed studies during hospitalization [Text1]: Exam(s) a CT:CT chest PE CTA SYMPTOMS/DIAGNOSIS: SYNCOPE, ELEVATED D-DIMER CT ANGIOGRAPHY, CHEST: CT angiography was performed with multi slice acquisition and multi planar and 3D reconstruction. CT angiography of the chest was performed with a bolus infusion of 100 cc of Omnipaque 350. Images obtained through the upper abdomen show unremarkable appearance of the visualized portions of the liver and spleen. Heart appears mildly enlarged. There is poor inspiration. No pleural effusion. No pulmonary consolidation. No pulmonary embolism. Thoracic aorta is unremarkable with no aneurysm or dissection. No mediastinal or hilar adenopathy. CONCLUSION: Negative CTA, chest. [id number]: Total DLP = 0.00 mGy-cm Labs on day of discharge: Labs from last 24 hours 03/16/19 03/16/19 07:00 07:00 WBC 9.38 D RBC 3.21 L Hgb 8.8 L Hct 28.8 L MCV 89.7 MCH 27.4 MCHC 30.6 L RDW 15.9 H Plt Count 230 MPV 10.5 Immature Gran % 0.0 Neutrophils % 81.0 Lymphocytes % 12.0 Monocytes % 6.0 Eosinophils % 1.0 Basophils % 0.0 Absolute Neutrophils 7.60 H Absolute Lymphocytes 1.13 L Absolute Monocytes 0.56 Absolute Eosinophils 0.09 Absolute Basophils 0.00 Differential Comment Manual differential RBC Morphology Normal Sodium 140 Potassium 4.4 Chloride 106 Carbon Dioxide 26.2 Anion Gap 7.8 BUN 22 H Creatinine 1.03 H Estimated GFR/1.73 m2 52.67 Glucose 100 D Calcium 8.3 L Magnesium 1.7 L Preliminary micro results at discharge 03/14/19 18:45 Blood Culture - Preliminary Blood NO GROWTH 24 HOURS [facility] Medical History Adenomatous polyp of colon Anxiety Avila esophagus Cancer of left breast (Acute ~11/11/18) 11/11/18 DR. SHORT; +ER, +CO 02/21/19; [facility] [place];CHEMO TX EVERY 3 WEEKS FOR 12 WEEKS-kb Cortical cataract of left eye (Resolved) Cortical cataract of right eye (Resolved) Diabetes (Chronic) H/O: hysterectomy (Chronic) History of hysterectomy (Chronic) History of hysterectomy (Chronic) Hyperlipidemia Hypertension Hypothyroid Nuclear sclerotic cataract of left eye (Resolved) Nuclear sclerotic cataract of right eye (Resolved) Obesity, Class III, 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 skin cancer Uterine cancer (Acute) Ventral hernia (Acute) Surgical History Biopsy of breast x 5-6; cyst aspirated 1993 section Endometrial Biopsy (~2006) NEG S/P left mastectomy (Acute ~12/07/18) with sentinel lymph node biopsy Status post cataract extraction and insertion of intraocular lens of left eye (Chronic 05/30/18) Status post cataract extraction and insertion of intraocular lens of right eye (Resolved 05/16/18) Status post cataract extraction and insertion of intraocular lens of right eye (Chronic 05/16/18) Family History Mother Diabetes Essential hypertension Personal history of malignant neoplasm Stomach Heart disease Hyperlipidemia Stroke Father No problems noted. Sister Essential hypertension Hyperlipidemia Asthma Brother Alcohol abuse Essential hypertension Personal history of malignant neoplasm Esophagus Depression Hyperlipidemia Grandfather Personal history of malignant neoplasm Heart disease Asthma Grandfather Heart disease Grandmother Heart disease Grandmother Essential hypertension Heart disease Hyperlipidemia Stroke Brother Diabetes Essential hypertension CHF (congestive heart failure) Heart disease Hyperlipidemia COPD (chronic obstructive pulmonary disease) Asthma Daughter Depression Social History Smoking/Tobacco Use Status: Never Alcohol Intake: never Drug use: Never Substance use type: does not use 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
[2019-03-16 12:29] VITALS: BP 107/68; PULSE 83; RESP 18; TEMP 36.9; O2SAT 92
[2019-03-16] MEDS: Magnesium Oxide 400 MG TAB 800 MG PO (12:43)
[2019-03-16 13:25] VITALS: PULSE 82
--- NOTE | 2019-03-16 21:02 | OTIE_ITS ---
Occupational Therapy Notes Inpatient Occupational Therapy Evaluation Date: 03/16/19 Referring Doctor:Davi Corcoran MD OT Orders: 'Limited Ability Precautions: Fall, Contact PATIENT PROFILE/ADMITTING DIAGNOSIS: Pt is a 73 year old female who was admitted to [facility] through the ER for a dx of breast cancer and syncope episode. Past Medical History: Medical History Adenomatous polyp of colon Anxiety Avila esophagus Cancer of left breast (Acute ~11/11/18) 11/11/18 DR. SHORT; +ER, [place] [facility] [place] EVERY 3 WEEKS FOR 12 WEEKS-kb Cortical cataract of left eye (Resolved) Cortical cataract of right eye (Resolved) Diabetes (Chronic) H/O: hysterectomy (Chronic) History of hysterectomy (Chronic) History of hysterectomy (Chronic) Hyperlipidemia Hypertension Hypothyroid Nuclear sclerotic cataract of left eye (Resolved) Nuclear sclerotic cataract of right eye (Resolved) Obesity, Class III, 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 skin cancer Uterine cancer (Acute) Ventral hernia (Acute) Surgical History Biopsy of breast x 5-6; cyst aspirated 1993 section Endometrial Biopsy (~2006) NEG S/P left mastectomy (Acute ~12/07/18) with sentinel lymph node biopsy Status post cataract extraction and insertion of intraocular lens of left eye (Chronic 05/30/18) Status post cataract extraction and insertion of intraocular lens of right eye (Resolved 05/16/18) Status post cataract extraction and insertion of intraocular lens of right eye (Chronic 05/16/18) Social History/Home Situation: Pt reports that she lives alone with her dog and cat in a private home. She notes that her daughter lives at the end of her driveway and (A) her as needed. She has adaptive equipment for LE dressing and states that she uses a cane/FWW for functional mobility. Equipment owned/DME: Shower bench, grab bars, sock aid, shoe horn, dressing stick, cane, FWW SUBJECTIVE: Pt was sitting in bed when OT arrived. She was agreeable to OT session stating that she plans to be discharged today from [facility]. OBJECTIVE: General Observation: Telemetry, pleasant and able to answer questions appropriately Mental Status: A&Ox4 Pain: no c/o pain ROM: RUE AROM WFL L UE AROM WFL STRENGTH: RUE Shoulder flexion 4/5 bicep 5/5, tricep 5/5, certified composites technician is strong and symmetrical LUE Shoulder flexion 4/5 bicep 5/5, tricep 5/5, certified composites technician is strong and symmetrica FUNCTIONAL MOBILITY/ADLS: Transfers with cane Supine-sit (I) Sit-Stand (S) Stand-sit (S) Bed-Chair [employer] Chair-bed [employer] BATHING Bathing UE Standing at sink (I) washing face, (B) UE, underarms Bathing LE NT DRESSING Dressing UE Standing at sink (I) don and doff [facility] gown with min (A) for telemetry unit Dressing LE Sitting on side of bed pt was able to (I) don and doff (B) socks. GROOMING Standing at sink pt was able to (I) demonstrate teeth brushing with good weight shifting and min vc provided. TOILETING on toilet (I) EATING Sitting in bed (I) with food to mouth translation. BALANCE: Static sitting Normal Dynamic Sitting Normal Static Standing Normal Dynamic Standing Good-Normal SPECIAL TESTS: Daily Activity Limitations Standardized Measure [facility] AM -PAC ?6 clicks? Daily Activity Inpatient Short Form: Raw score: 23 INFORMED CONSENT/EDUCATION: Pt instructed in purpose of OT Consult and plan of care. ASSESSMENT: Patient is a 73-year-old female referred to occupational therapy services with diagnosis of breast cancer and syncope. Patient was seen for OT consult only. She is functioning at her baseline level of function. 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 OT does feel that based on pt's current functional (I) that pt will be able to return home when medically cleared per MD. Patient is assessed as a Low 95124 complexity based on the following: History: See Above Examination: See functional limitations as listed above Presentation: Evolving Decision Making: low complexity GOALS N/A PLAN OF CARE/TREATMENT PLAN: OT consult only. DISCHARGE RECOMMENDATIONS Home when medically cleared per MD. TREATMENT TIME/MINUTES/CODES 31619, [id number] 25 minutes (09:00) Yasmin Lane OTR/[facility]
== END 2019-03-16 14:15 | disposition home or self-care (01) | DRG 312 ==
LOC: ER 19:33 → MS 20:17
PROVIDERS: Family Medicine; Nurse Practitioner Family; Admitting Provider General Practice; Emergency Provider Physician Assistant; PCP Family Medicine; Visit Provider Internal Medicine
DX: R55 Syncope and collapse (principal); N39.0 Urinary tract infection, site not specified; Z68.42 Body mass index [BMI] 45.0-49.9, adult; E86.1 Hypovolemia; C50.912 Malignant neoplasm of unspecified site of left female breast; Z90.12 Acquired absence of left breast and nipple; E11.9 Type 2 diabetes mellitus without complications; G47.33 Obstructive sleep apnea (adult) (pediatric); G25.81 Restless legs syndrome; Z79.899 Other long term (current) drug therapy; D72.829 Elevated white blood cell count, unspecified; Z79.84 Long term (current) use of oral hypoglycemic drugs; I10 Essential (primary) hypertension; E78.5 Hyperlipidemia, unspecified; E66.1 Drug-induced obesity; E03.9 Hypothyroidism, unspecified
CPT/HCPCS: 36415; 36416; 71275; 80048; 80053; 82962; 85027; 87040; 93005; 96361; 96365; 96366; 97165; 97535; 99222; 99232; 99285; 81003; 81015; 83735; 83880; 84484; 85025; 85379; 85610; 85730; 87086; 93010; 99239; J0696

== ENCOUNTER 2019-04-21 10:57 | Outpatient (CLI) | payer OTHER, SELFPAY ==
--- NOTE | 2019-04-21 10:26 | DI.RAD_ITS ---
EXAM: XR KNEE LT 3V AP,LAT,JUSTINE INDICATION: knee pain. COMPARISON: XR KNEE RT 3V AP,LAT,JUSTINE from 04/21/2019 TECHNIQUE: 2D digital imaging was performed. FINDINGS: There is severe narrowing of the medial femoral tibial joint space a prominent periarticular spurrin g. There is also varus angulation. Spurring is seen at the tibial spines and femoral intercondylar notch. There is also prominent patellofemoral joint spurring. 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
--- NOTE | 2019-04-21 10:26 | DI.RAD_ITS ---
EXAM: XR KNEE RT 3V AP,LAT,JUSTINE INDICATION: knee pain. COMPARISON: No exams were available for comparison TECHNIQUE: 2D digital imaging was performed. FINDINGS: There is severe narrowing of the medial femoral tibial joint space, with a [id number] appearance. There is some remodeling of the medial tibial plateau and prominent spurring from the medial aspect of the patella. There is varus angulation. There also severe spurring of the patellofemoral joint. IMPRESSION: Severe degenerative changes.
== END 2019-04-21 11:17 ==
PROVIDERS: PCP Family Medicine; Visit Provider Physician Assistant
DX: M25.561 Pain in right knee (principal); M25.562 Pain in left knee; M17.0 Bilateral primary osteoarthritis of knee
CPT/HCPCS: 73562

== ENCOUNTER 2019-04-26 10:36 | Outpatient (CLI) | payer OTHER, SELFPAY ==
[2019-04-26 13:47] LABS: Hemoglobin A1C 6.8 % (4.5-6.2)
== END 2019-04-26 10:56 ==
PROVIDERS: PCP Family Medicine; Visit Provider Family Medicine
DX: E11.9 Type 2 diabetes mellitus without complications (principal)
CPT/HCPCS: 36415; 83036

== ENCOUNTER 2019-05-22 14:12 | Outpatient (CLI) | payer OTHER, SELFPAY ==
[2019-05-22 15:47] LABS: Abs Immature Grans 0.04 k/cumm (0.0-0.09); Absolute Basophil Count 0.01 k/cumm (0.0-0.2); Absolute Eosinophil Count 0.11 k/cumm (0.0-0.7); Absolute Lymphocyte Count 0.82 k/cumm (1.2-3.4); Absolute Monocyte Count 0.58 k/cumm (0.11-0.7); Absolute Neutrophil Count 5.16 k/cumm (1.2-6.7); Basophils % 0.1; Eosinophils % 1.6; HCT 35.8 % (36.0-46.0); HGB 11.3 g/dL (12.0-15.5); Immature Grans % 0.6; Lymphocytes % 12.2; Mean Corp. HGB Concentration 31.6 g/dL (32.0-36.0); Mean Corpuscular Hemoglobin 27.6 pg (27.0-33.0); Mean Corpuscular Volume 87.3 fL (80-95); Mean Platelet Volume 10.5 fL (8.0-11.0); Monocytes % 8.6; Neutrophils % 76.9; Platelet Count 271 x1000/uL (130-400); RBC Distribution Width 16.2 % (11.7-14.6); White Blood Cell Count 6.72 k/cumm (4.4-10.8)
[2019-05-22 16:20] LABS: ALT 27 U/L (14-59); AST 14 U/L (15-37); Alkaline Phosphatase 99 U/L (46-116); BUN 20 mg/dL (7-18); Bilirubin, Total 0.2 mg/dL (0.2-1.0); CREATININE 1.26 mg/dL (0.55-1.02); Calcium 9.5 mg/dL (8.5-10.1); Chloride 101 mmol/L (98-107); Estimated GFR 41.63 (mL/min/1.73m2); Glucose 135 mg/dL (70-100); Potassium 4.2 mmol/L (3.5-5.1); Sodium 139 mmol/L (136-145); Total Protein 7.3 g/dL (6.4-8.2)
[2019-05-23 17:00] LABS: Cancer Ag 15-3 9.8 U/mL (<30)
== END 2019-05-22 14:32 ==
PROVIDERS: PCP Family Medicine; Visit Provider Internal Medicine
DX: C54.1 Malignant neoplasm of endometrium (principal); C50.912 Malignant neoplasm of unspecified site of left female breast
CPT/HCPCS: 36415; 80053; 86304; 85025; 86300

== ENCOUNTER 2019-06-23 01:16 | Outpatient (CLI) | payer OTHER, MEDICARE, SELFPAY ==
[2019-06-23 15:23] LABS: CREATININE 1.07 mg/dL (0.55-1.02); Estimated GFR 50.27 (mL/min/1.73m2)
== END 2019-06-23 01:36 ==
PROVIDERS: PCP Family Medicine; Visit Provider Internal Medicine
DX: C50.312 Malignant neoplasm of lower-inner quadrant of left female breast (principal); E11.9 Type 2 diabetes mellitus without complications; Z79.84 Long term (current) use of oral hypoglycemic drugs
CPT/HCPCS: 36415; 82565

== ENCOUNTER 2019-06-26 16:47 | Outpatient (CLI) | payer OTHER, SELFPAY ==
[2019-06-26 18:15] LABS: CREATININE 1.25 mg/dL (0.55-1.02); Estimated GFR 42.01 (mL/min/1.73m2)
== END 2019-06-26 17:07 ==
PROVIDERS: PCP Family Medicine; Visit Provider Radiology Radiation Oncology
DX: C50.912 Malignant neoplasm of unspecified site of left female breast (principal)
CPT/HCPCS: 36415; 82565

== ENCOUNTER 2019-07-27 11:24 | Outpatient (CLI) | payer OTHER, SELFPAY ==
[2019-07-27 12:40] LABS: Abs Immature Grans 0.02 k/cumm (0.0-0.09); Absolute Basophil Count 0.01 k/cumm (0.0-0.2); Absolute Eosinophil Count 0.08 k/cumm (0.0-0.7); Absolute Lymphocyte Count 0.68 k/cumm (1.2-3.4); Absolute Neutrophil Count 5.18 k/cumm (1.2-6.7); Basophils % 0.2; Eosinophils % 1.3; HCT 34.6 % (36.0-46.0); HGB 10.8 g/dL (12.0-15.5); Immature Grans % 0.3 %; Lymphocytes % 10.7; Mean Corp. HGB Concentration 31.2 g/dL (32.0-36.0); Mean Corpuscular Hemoglobin 27.2 pg (27.0-33.0); Mean Corpuscular Volume 87.2 fL (80-95); Mean Platelet Volume 10.5 fL (8.0-11.0); Monocytes % 6.3; Neutrophils % 81.2; Platelet Count 208 x1000/uL (130-400); RBC 3.97 m/cumm (4.00-5.20); RBC Distribution Width 15.3 % (11.7-14.6); White Blood Cell Count 6.37 k/cumm (4.4-10.8)
[2019-07-27 13:17] LABS: Hemoglobin A1C 7.2 % (3.8-5.6)
[2019-07-27 14:02] LABS: Ferritin 39 ng/mL (8-252); Vitamin B12 576 pg/mL (193-986)
== END 2019-07-27 11:44 ==
PROVIDERS: PCP Family Medicine; Visit Provider Family Medicine
DX: D64.9 Anemia, unspecified (principal); R73.9 Hyperglycemia, unspecified
CPT/HCPCS: 36415; 82607; 82728; 83036; 85025

== ENCOUNTER 2019-09-05 11:26 | Outpatient (CLI) | payer OTHER, SELFPAY ==
[2019-09-04 12:44] LABS: HGB 10.7 g/dL (12.0-15.5); Mean Corp. HGB Concentration 31.5 g/dL (32.0-36.0); Mean Corpuscular Hemoglobin 27.5 pg (27.0-33.0); Mean Corpuscular Volume 87.4 fL (80-95); Mean Platelet Volume 10.3 fL (8.0-11.0); Platelet Count 219 x1000/uL (130-400); RBC 3.89 m/cumm (4.00-5.20); RBC Distribution Width 15.3 % (11.7-14.6); White Blood Cell Count 6.61 k/cumm (4.4-10.8)
[2019-09-04 13:32] LABS: Anion Gap 9.9 mmol/L (3-11); BUN 17 mg/dL (7-18); CO2 29.1 mmol/L (21.0-32.0); CREATININE 1.15 mg/dL (0.55-1.02); Calcium 9.2 mg/dL (8.5-10.1); Chloride 102 mmol/L (98-107); Estimated GFR 46.25 (mL/min/1.73m2); Glucose 96 mg/dL (74-106); Potassium 4.1 mmol/L (3.5-5.1); Sodium 141 mmol/L (136-145)
--- NOTE | 2019-09-04 14:42 | PDOC.CMPRO ---
- If Service Date Differs Date of service: 09/04/19 Time of Service: 14:42 Care Management Progress Note CM meets with patient at the request of Pato from day surgery. Myesha is having right knee replacement surgery on Wednesday. She reports she lives alone in [place] in a mobile home. She has a cat and a small dog. Her daughter, son-in-law, and grandson live next door to her and she names them as a source of support. There are no stairs in Myesha's home and a ramp leads up to the front door. Myesha owns a cane, a walker, a lift chair, a commode, and her home is equipped with a walk-in shower with a shower seat and a high rise toilet, and both the shower and toilet have grab bars. Myesha also has a life line alert which she wears around her neck. She drives and is independent at baseline. She has cooked and frozen several meals for herself ahead of the surgery. She states her daughter works at [employer] but she will be home in the evening to help her out as needed. Myesha has no in-home services at this time.
== END 2019-09-05 11:46 ==
PROVIDERS: PCP Family Medicine; Visit Provider Student in an Organized Health Care Education/Training Program
DX: M25.561 Pain in right knee (principal); M17.11 Unilateral primary osteoarthritis, right knee; Z01.818 Encounter for other preprocedural examination; Z01.812 Encounter for preprocedural laboratory examination
CPT/HCPCS: 36415; 80048; 85027

== ENCOUNTER 2019-09-06 10:04 | Inpatient (IN) | payer OTHER, SELFPAY ==
[2019-09-04 10:17] VITALS: BP 144/71; PULSE 88; RESP 16; TEMP 36.6; O2SAT 92
[2019-09-06] VITALS (9 sets, daily range): BP systolic 114–136; BP diastolic 61–83; PULSE 65–80; RESP 12–21; TEMP 35.9–36.6; O2SAT 93–97
[2019-09-06] MEDS: Acetaminophen 500 MG TAB 1000 MG PO ×2 (11:18→19:23)
[2019-09-06] MEDS: Celecoxib 200 MG CAP 400 MG PO (11:18)
[2019-09-06] MEDS: Gabapentin 300 MG CAP PO ×2 (11:19→21:41)
[2019-09-06] MEDS: Lactated Ringers 1,000 ML 80 ML IV ×3 (11:45→18:28)
[2019-09-06] MEDS: ceFAZolin 2 GM/50 ML BAG IVPB (13:30)
[2019-09-06] MEDS: Bupivacaine 0.25% Pres-Free 30 ML VIAL (14:06)
[2019-09-06] MEDS: Normal Saline 20 ML VIAL (14:06)
[2019-09-06] MEDS: Ketorolac 30 MG/ML VIAL (14:06)
--- NOTE | 2019-09-06 17:52 | PT.INNT ---
Date of service: 09/06/19 Time of Service: 17:52 PT Notes Visit Reasons: (R) KNEE DJD Patient was brought up to MedSurg unit at about 5:15 PM. PT sought out nurse at 5:30 PM who stated that patient is still numb from waist down and is currently having supper. Will plan on doing PT evaluation first thing tomorrow morning. Thank you very much for this referral. Kari Flynn PT, DPT, CLT [facility] Inpatient PT at [facility]
[2019-09-06] MEDS: Normal Saline Flush 10 ML SYR IV (18:29)
[2019-09-06] MEDS: Aspirin E.C. 325 MG TABEC 81 MG PO (19:24)
[2019-09-06] MEDS: Celecoxib 100 MG CAP PO (19:25)
[2019-09-06] MEDS: Docusate Sodium 100 MG CAP PO (19:25)
[2019-09-06] MEDS: Omeprazole 20 MG CAPCR PO (19:38)
[2019-09-06] MEDS: metFORMIN 500 MG TAB PO (19:38)
[2019-09-06] MEDS: ceFAZolin 1 GM/50 ML BAG IVPB (19:39)
--- NOTE | 2019-09-06 21:04 | ROE_ITS ---
Date of service: 09/06/19 Time of Service: 16:05 Operative Note Operative Note DATE OF PROCEDURE: 09/06/19 PRE-OP DIAGNOSIS: Right Knee DJD POST-OP DIAGNOSIS: same PROCEDURE: Right Total Knee Arthroplasty with Intraoperative Navigation SURGEON: Andres Knight EMERGENCY DEPARTMENT PHYSICIAN: Tea Ramires ANESTHESIA: regional and spinal ESTIMATED BLOOD LOSS: 400 PATHOLOGY: none sent TOURNIQUET TIME: 35 COMPLICATIONS: None Patient was transported to: PACU Patient's condition: stable Implants: 1. Depuy Attune Posterior Stabilized Femoral Component, Size 5 2. Depuy Attune Fixed Platform Tibial Component, Size 4 3. Depuy Attune 5x10 Fixed, Stabilized Poly 4. Depuy Attune Patellar Component, Size 35 Indications: I have seen Myesha in clinic for symptoms of knee arthritis, confirmed with radiographic findings. She has exhausted nonoperative methods and was having significant limitations in daily function and desired better function and less pain. I discussed the technical details of a knee replacement. I explained the risks of the procedure to include, but not limited to, bleeding, infection, pain, stiffness, fracture, damage to nerves and vessels, damage to muscles and tendons, loosening, need for repeat procedure, blood clot and cardiopulmonary demise. Despite these risks, Myesha elected to proceed. Findings: There was significant signs of arthritis throughout the knee. Large osteophytes are present throughout the knee. Her preoperative motion was significantly limited with a flexion contracture of 15 to 20 degrees and maximal flexion of about 85 degrees. Bone quality was quite poor. Procedure Description: Myesha was greeted in the preoperative holding area where the correct side was identified and marked. The consent was reviewed with the patient and signed. The history and physical was updated. All questions were answered. Preoperative mediacations were administered: Acetaminophen 1000mg, Celebrex 400mg, Gabapentin 300mg. An adductor canal block was then administered by the anesthesia team in the PACU. Myesha was taken back to the operating room. A spinal anesthestic was then administered. The patient was placed into the supine position on the [facility] room table. A nonsterile tourniquet was placed high onto the leg but only used for cementing. Posts were placed for positioning during the procedure. All bony prominences were well padded. Prophylactic antibiotics in the form of Cefazolin were administered. 1g of Tranxemic Acid was given intravenously within 30 minutes of incision. The right leg was then prepped with Chloraprep and draped in a standard fashion with impervious stockinette and extremity drape with Iodine impregnated skin protection. A timeout to confirm correct identity, side and site, procedure, allergies, anesthesia, and medical concerns was performed. With the knee in some flexion, a midline incision was made overlying the knee. Full thickness skin flaps were raised once the extensor mechanism was encountere d. These were raised medially and laterally. Any bleeding was controlled with electrocautery. Once the extensor mechanism was fully exposed, a medial parapatellar arthrotomy was performed in a flexed position. All bleeding from the arthrotomy and the geniculate arteries was coagulated. A medial subperiosteal peel was performed with electrocautery to the midcoronal plane. Due to the significant varus deformity the entire medial tibial plateau was exposed. The fat pad was removed while keeping the patellar tendon protected. The anterior distal femur synovium was removed for later visualization. The ACL and PCL were resected and the anterior horn of the lateral meniscus was transected. The knee was then flexed with the patella everted. Large osteophytes from the tibia were removed. Large osteophytes from the femur were removed. A single starting pin was then placed 1cm anterior to the PCL insertion and the notch in the direction of the femoral head. The OrthoAlign device was applied over the pin. It was oriented to be in line with the epicondylar axis and the trochlear groove. It was then pinned into place. The navigation computer was then turned on and calibrated. The distal femur cut was set at 0 degrees varus/valgus and 2.5 degrees flexion. The distal femur cutting guide then was positioned for a 11mm cut. The distal femur was cut with an oscillating saw while protecting the soft tissues. The tibia was then addressed. The OrthoAlign device was placed over the tibial tubercle and medial tibia and secured into position. Once again, OrthoAlign was calibrated and then set for a 0.5 degree varus cut and 3 degrees of posterior slope. With this locked into position, the cut thickness stylus was used to assess cut thickness. The medial side, most involved side, was set for a 2mm cut. This was then held in position and pinned into place with 2 additional pins and a cross pin for stability. The medial and lateral collateral ligaments were protected and the cut was performed. With this completed, it was assessed and noted to be of appropriate dimensions. The guide and OrthoAlign was removed. A spacer block was inserted and the knee was brought into extension. The 8mm spacer block provided full extension, without hyperextension and with stability of both the medial and lateral collateral ligaments was assessed. The pins from the femur and the tibia were then removed. The distal femur was then sized. The anterior stylus was placed onto the lateral ridge of the anterior femur. This indicated a size 5 femur. The external rotation of the guide was adjusted to 3 degrees to match the epicondylar axis, perpendicular to Dickson?s line. The 4-in-1 cutting guide was the placed. The posterior medial femur cut was evaluated and appeared of good thickness. The spacer block was inserted underneath the cutting guide and stability was confirmed in 90 degrees of flexion. An jermaine wing was used to confirm appropriate position of the anterior cut to avoid notching. This cutting guide was ensured to be flush on the cut surface and then pinned into place with headed pins. While protecting the soft tissues, quad tendon, and co llateral ligaments, the anterior and posterior cuts were performed with a saw. The central two pins were removed and the posterior and anterior chamfers were cut next. The notch-cutting guide was placed. This was pinned to lateralize the femoral component as much as possible while keeping it flush on the cut surface. This was then pinned into position. A reciprocating saw was used to make the notch cut. A rasp smoothed the cut surfaces. A curved osteotome was then used to remove large posterior osteophytes from both the medial and lateral posterior femoral condyles. A trial posterior stabilized femoral component was then inserted, impacted down to the cut surfaces, and the lug holes were drilled. A provisional trial tibial component was placed and the knee was brought through range of motion. The patella was tracking without thumbs. The tibial cut surface was fully exposed. The medial and lateral menisci were removed. The tibia was then sized as a 4. The tibia had been previously marked during trialing to correspond to the center of the tibial component to help with rotation. The trial was aligned to this aysha, approximately rotated to the medial 1/3rd of the tibial tubercle. The trial was pinned into place. The tibia was prepared with a reamer and a keel punch. The knee was then brought into extension and the patella was measured as 25mm. Using the patellar clamp and cut guide, this was resected to a flat surface with at least 13mm of thickness remaining. The size 35 patella fit the best. This was oriented and then clamped into position. The lugs were drilled. The trial components were removed. The final components, except for the polyethylene were opened on the back table. The periosteal and capsular tissues, especially posteriorly, around the knee were then systematically injected with a periarticular cocktail consisting of 50cc 0.25% Marcaine, 30mg Ketorolac, 20cc of Exparal and 50cc of injectable saline. The tourniquet was then inflated to 275mmHg. The knee was thoroughly irrigated with a pulse lavage and dried. On the back table, with the implants opened, the cement was mixed. 2 batches of antibiotic laden cement were prepared with vacuum assistance. After the cement was ready a small amount was placed on to the back side of the tibial component at the keel. A small amount was placed onto the posterior flange of the femur. Cement was manual pressurized and impregnated into the cut surface of the tibia. The tibial component was then inserted into the cut surface and impacted into position. Excess cement was removed and the component was reimpacted. Again, excess cement was removed and our attention was then turned to the femur. The femoral cut surface was once again dried and cement was manually impacted into the cut surface. The femoral component was lined with the lug holes and impacted. Excess cement was removed. It was ensured to be down against the cut surface. The trial polyethylene was then inserted and the leg was brought out into full extension for the duration of the cement curing process, approximately 15min. Cement was lastly manually impacted into the cut surface of the patella and the patellar button was clamped into position and held. During this process attention was turned to the gutters of the knee and for all interfaces for any excess cement. The knee was irrigated with Irrisept chlorhexadine solution. After the cement had finally cured, approximately 15min, the clamp was removed from the patella and the knee was taken through range of motion. A size 10mm p olyethylene component provided the best range of motion and stability with less than 2mm gapping with medial and lateral stress and full extension without significant hyperextension. The patella was tracking with a no-thumbs technique. The trial poly was removed and once again the knee was checked for any loose, excess, or errant cement. The poly component was then inserted and impacted into position after cleaning and drying the tibial tray. The capsule was then reapproximated with a No. 1 Vicryl at multiple locations. The capsule was finally closed with a No. 2 Stratafix, barbed suture. The tourniquet was then released and the arthrotomy appeared watertight without significant bleeding. The second dosing of 1g TXA was started. Deep tissues were then reapproximated with 0 Vicryl and 2-0 Vicryl. The skin was closed with a running 3-0 Monocryl in a subcuticular fashion. This was reinforced with skin glue. A Mepilex silver dressing was applied along with a [id number] BARBRA wrap. A CryoCuff was applied. Myesha was transferred to the hospital bed without difficulty an suffering no apparent complication. Myesha has a good prognosis. Physical therapy will start today and without restrictions, weight-bearing as tolerated. Aspirin 81mg BID will be used for DVT prophylaxis.
[2019-09-06] MEDS: rOPINIRole 0.5 MG TAB 2 MG PO (21:41)
[2019-09-06] MEDS: Pravastatin 40 MG TAB PO (21:41)
[2019-09-06] MEDS: Insulin Aspart 300 UNITS/3 ML PEN SC (21:41)
[2019-09-07] VITALS (7 sets, daily range): BP systolic 102–122; BP diastolic 50–67; PULSE 76–89; RESP 17–20; TEMP 36.6–38; O2SAT 92–95
[2019-09-07] MEDS: oxyCODONE 5 MG TAB PO ×3 (03:11→18:25)
[2019-09-07] MEDS: ceFAZolin 1 GM/50 ML BAG IVPB ×2 (03:12→11:31)
[2019-09-07] MEDS: Lactated Ringers 1,000 ML 80 ML IV ×2 (07:37→22:59)
[2019-09-07] MEDS: Docusate Sodium 100 MG CAP PO ×3 (07:59→20:03)
[2019-09-07] MEDS: Lisinopril 10 MG TAB PO (07:59)
[2019-09-07] MEDS: Cholecalciferol (Vitamin D3) 1,000 UNIT TAB 2000 UNITS PO (07:59)
[2019-09-07] MEDS: Omeprazole 20 MG CAPCR PO ×2 (08:00→20:03)
[2019-09-07] MEDS: Letrozole 2.5 MG TAB PO (08:00)
[2019-09-07] MEDS: Sertraline 50 MG TAB 100 MG PO (08:00)
[2019-09-07] MEDS: Celecoxib 100 MG CAP PO ×2 (08:01→20:03)
[2019-09-07] MEDS: Acetaminophen 500 MG TAB 1000 MG PO ×3 (08:01→20:02)
[2019-09-07] MEDS: Pantoprazole 40 MG TABCR PO (08:01)
[2019-09-07] MEDS: Magnesium Oxide 400 MG TAB PO (08:02)
[2019-09-07] MEDS: Furosemide 20 MG TAB PO (08:02)
[2019-09-07] MEDS: metFORMIN 500 MG TAB PO ×2 (08:02→20:03)
[2019-09-07] MEDS: Levothyroxine 88 MCG TAB PO (08:02)
--- NOTE | 2019-09-07 08:50 | IN_ITS ---
Date of service: 09/07/19 Time of Service: 08:50 PT Notes Visit Reasons: (R) KNEE DJD Physical Therapy Inpatient Initial Evaluation Date: 09/07/2019 Referring Doctor: Andres Knight MD PT Orders: PT CONSULT: Status post Ortho surgery. Precautions: Fall. Standard. WBAT on right LE. Patient Profile/Admitting Diagnosis: Patient is a 74-year-old female who is status post right knee total arthroplasty on postoperative day 1 due to degenerative joint disease of the right knee. PMHX: Medical History Adenomatous polyp of colon Anxiety Avila esophagus Cancer of left breast (Acute ~11/11/18) 11/11/18 DR. SHORT; +[place], [place] 02/21/19; [facility] [place]CHEMO TX EVERY 3 WEEKS FOR 12 WEEKS-kb Cortical cataract of left eye (Resolved) Cortical cataract of right eye (Resolved) Diabetes (Chronic) H/O: hysterectomy (Chronic) History of hysterectomy (Chronic) History of hysterectomy (Chronic) Hyperlipidemia Hypertension Hypothyroid Nuclear sclerotic cataract of left eye (Resolved) Nuclear sclerotic cataract of right eye (Resolved) Obesity, Class III, 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 skin cancer Uterine cancer (Acute) Ventral hernia (Acute) Surgical History Biopsy of breast x 5-6; cyst aspirated 1993 section Endometrial Biopsy (~2006) NEG S/P left mastectomy (Acute ~12/07/18) with sentinel lymph node biopsy Status post cataract extraction and insertion of intraocular lens of left eye (Chronic 05/30/18) Status post cataract extraction and insertion of intraocular lens of right eye (Resolved 05/16/18) Status post cataract extraction and insertion of intraocular lens of right eye (Chronic 05/16/18) Social History/Home Situation: Patient lives alone in a mobile home with a with 2 ramps to enter. She was still driving a week prior to surgery. She is independent with all mobility ADL performance using a four-wheeled walker. She is able to make her own meals, light housekeeping, and laundry. Her daughter does grocery shopping. Her daughter and her daughter's lives from across her and are readily available if help is needed. Equipment Owned/DME: Hospital bed, three SPC's, three 4WW, walk-in shower, shower chair, Lifeline emergency alert device, electric recliner, grab bars Subjective: Patient is agreeable to PT consult. Patient reports tightness and stiffness on the right popliteal area but subsided after walking activity today. 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 She reports no pain on the right knee but did say having a mild ache. Objective: General Observation: Patient sitting on chair. IV in right UE, Mauricio catheter in place. TEDS on the left leg. Mental Status: Alert and oriented x4 Pain: 07/14 mostly concentrated on the right popliteal area ROM: Right Upper Extremity: Shoulder Flexion WFL. Shoulder abduction WFL. Elbow flexion WFL. Wrist flexion WFL. Opening and closing of hand WFL. Left Upper Extremity: Shoulder Flexion WFL. Shoulder abduction WFL. Elbow flexion WFL. Wrist flexion WFL. Opening and closing of hand WFL. Right Lower Extremity: Hip flexion about 10 degrees beyond 90 while seated on chair.. Hip abduction WFL. Knee flexion -20 to 70 degrees. Knee extension -20 degrees. Ankle dorsiflexion WFL. Ankle plantarflexion WFL. Left Lower Extremity: Hip flexion WFL. Hip abduction WFL. Knee flexion WFL. Ankle dorsiflexion WFL. Ankle plantarflexion WFL. Strength: Right Upper Extremity: Shoulder flexors 5/5. Shoulder abductors 5/5. Elbow flexors 5/5. Elbow extensors 5/5. 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 Left Upper Extremity: Shoulder flexors 5/5. Shoulder abductors 5/5. Elbow flexors 5/5. Elbow extensors 5/5. 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 Right Lower Extremity: Hip flexors 3-/5. Hip abductors 5/5. Knee flexors 3-/5. Knee extensors 3-/5. Ankle dorsiflexors 4/5. Ankle plantarflexors 4/5. Left Lower Extremity: Hip flexors 4/5. Hip abductors 5/5. Knee flexors 4/5. Knee extensors 4/5. Ankle dorsiflexors 4/5. Ankle plantarflexors 4/5. Sensation: Intact as to pain and pressure on bilateral lower extremities. Bed Mobility/Transfers: Sit to stand minimal assist Stand to sit minimal assist Bed to chair minimal assist Chair to bed minimal assist Gait: Patient tolerated level surface ambulation of 280 using a front-wheeled walker with feet CGA and wheelchair follow PT. Patient reported stiffness initially on the right popliteal area that subsided later. Decreased knee flexion on the right as patient feels that if she bends more she is can hurt more and become less stable. Decreased step height on the right side. Denies headache, chest pain, and dizziness throughout gait activity. Balance: Static Sitting: Normal Dynamic Sitting: Normal Static Standing: Fair Dynamic Standing: Fair Special Tests: Mobility Limitations Standardized Measure [facility] 6 clicks Basic Mobility Inpatient Short Form: Raw Score: 18 CMS Score: 47% deficit Informed Consent/Education: Patient instructed in purpose of PT consult and plan of care. Patient was also instructed on performing long arc quads, toe r aises and heel raises while seated on the chair 10 times every hour. Assessment: Mild difficulty with walking, impairment in balance, weakness of right LE, increased fall risk, and limited ADL performance due to postoperative status. Patient has all the mobility equipment that she will need in order to facilitate independence with mobility ADL performance while reducing fall risk. She has good family support with her daughter and daughter's family living from across of her house. Patient is a 74-year-old female who is status post right knee total arthroplasty on postoperative day 1 due to degenerative joint disease of the right knee. Patient presents with clinical signs and symptoms consistent with current/admitting diagnoses that have resulted to mobility limitations, gait instability, generalized weakness, and impairment of motor control as demonstrated by the following impairment level findings: 1. Decreased strength to right LE major muscle groups 2. Impaired standing balance 3. Impaired activity tolerance 4. Limitation of joint range of motion in right knee Impairments are contributing to the following functional limitations: 1. Inability to safely ambulate without assistive device and physical assistance 2. Increase completion time for mobility ADL performance 3. Increased fall risk 4. Inability to negotiate steps alone safely Patient is assessed as a 38808 moderate complexity based on the following: History: 74-year-old female with impairment level findings, functional limitations, medical history, and [facility] deficits score of 47% Examination: Demonstrable impairment in strength, balance, and range of motion with underlying impairments and functional limitations as documented above Presentation: Evolving Decision Makin moderate Goals: Goals X1 week 1. Supine-Sit independent 2. Sit-Supine independent 3. Sit-Stand independent 4. Stand-Sit independent 5. Bed-Chair independent 6. Chair-Bed independent 7. Independent gait on level surface with use of least restrictive device for at least 300 feet without report of pain nor dyspnea 8. Independent stair negotiation while holding onto bilateral rails for at least 10 steps without report of pain nor dyspnea 9. Independent with home exercise program 10. Good static and dynamic standing balance/tolerance Plan of Care/Treatment Plan: 1-2x/day, 7 days/week x 1 week. Plan of care has been reviewed with the BACTERIOLOGY PROFESSOR providing the service under Physical Therapy direction. Initiate Physical Therapy intervention for strengthening, bed mobility, transfers, gait, stairs, balance training, use of assistive device. DISCHARGE RECOMMENDATIONS: Patient will benefit from home health PT services for continued mobility training in the home setting to reduce fall risk, facilitate independence, and increase ability of patient to remain at home. TREATMENT CODE/TIME: 55084 x 30 minutes 9753 0 x 10 minutes beginning at 8:50 a.m. Thank you very much for this referral. Kari Flynn PT, DPT, CLT [facility] [place], [place]
[2019-09-07] MEDS: Aspirin E.C. 81 MG TABEC PO ×2 (09:39→20:03)
--- NOTE | 2019-09-07 10:21 | W.NUTCONSULT ---
Date of service: 09/07/19 Time of Service: 10:21 Nutritional Consult ASSESSMENT: 74 year old female s/p Right KNee DJD. Following Diabetic Diet with adequate intake. BMI indicates class 3 obesity. Not at nutritional risk. Time Spent in Nutritional Counseling and Treatment: 0 time spent face to face
--- NOTE | 2019-09-07 13:36 | W.PM.PROGNOT ---
Date of Service Date of service: 09/07/19 Time of Service: 13:36 Assessment and Plan Assessment and plan (1) Osteoarthritis of right knee: Status: Acute Assessment and plan: Myesha is a 74yo female s/p R TKA. She is doing well. I am concerned about her overall ability to manage at home but she has done well with PT and has all necessary equipment and nearby family. I encourage continue PT to work on transfers and likely d/c to home tomorrow with HHS. ASA for DVT prophylaxis. Qualifiers: Osteoarthritis type: primary Qualified Code(s): M17.11 - Unilateral primary osteoarthritis, right knee Subjective Subjective Interval history since last seen: Myesha is doing well. She has had some mild pain, primarily posteriorly. She was able to rest last night and was able to mobilize with PT. She denies any chest pain or shortness of breath. Exam Narrative Exam Narrative: Sitting up in bed. +SLR. Dressing c/d/i. +ADF/APF/EHL/FHL. SILT DP/SP/Tib. Objective Objective Clinical Data: Vital Signs Temperature 36.6 C 09/07/19 08:00 Temperature Source Tympanic 09/07/19 08:00 Pulse 78 09/07/19 08:00 Pulse Rhythm Regular 09/07/19 04:01 Respiratory Rate 18 09/07/19 08:00 Respiratory Effort 09/07/19 08:30 Respiratory Depth Normal 09/07/19 08:30 Respiratory Pattern Normal 09/07/19 08:30 Blood Pressure 122/65 09/07/19 08:00 Pulse Oximetry 94 L 09/07/19 08:00 Respiratory End-tidal CO2 36 09/06/19 16:46 Oxygen Delivery Method Room Air 09/07/19 08:00 Oxygen Flow Rate 0 09/07/19 08:00 Fraction of Inspired Oxygen (FIO2) 21 09/06/19 17:28 Pain Level 2 09/07/19 08:00 Intake & Output 09/06/19 09/07/19 09/07/19 23:59 11:59 23:59 Intake Total 2272 / 2272 1290 / 1739 449 / 1739 Output Total 500 / 500 600 / 600 Balance 1772 / 1772 690 / 1139 449 / 1139 Weight 103.9 kg Intake: IV 1752 / 1752 1050 / 1050 Oral 520 / 520 240 / 689 449 / 689 Output: Urine 100 / 100 600 / 600 Estimated Blood Loss 400 / 400 Other: Urine Color Yellow Yellow Urine Appearance Clear Clear Emesis Description None
--- NOTE | 2019-09-07 14:11 | CHAPLAIN ---
Myesha was in bed. She told me about her knee surgery and that she will also have to have her second knee surgery after healing from his one. She expects family to be in later today.
--- NOTE | 2019-09-07 14:13 | CHAPLAIN ---
Myesha told me about her knee surgery and she expects to have her second knee done later. She anticipates family will be in later today to visit. I explained my role and offered support.
--- NOTE | 2019-09-07 16:00 | PTTR_ITS ---
Date of service: 09/07/19 Time of Service: 16:01 PT Notes Visit Reasons: (R) KNEE DJD 09/07/2019 SUBJECTIVE: Myesha stating she has sat too long. Her knee is achy and she would like to get back to bed. She struggles to get out of chairs but at home she has a lift chair. OBJECTIVE: Seated in her chair. Agreeable to PT treatment. TRANSFERS Sit to stand: Mod A Stand to sit: CGA Sit to supine: Min A for LE's GAIT Device: FWW Weight bearing: AT R Assist: CGA Distance: 35' Deviation: step to pattern progressing to step through. THEREX: Light LE strengthening as noted on flow sheet as well as AROM. She tolerates active SLR. ASSESSMENT: Pt continues to require some assist with transfers and will require additional PT efforts for training. She ambulates well with step through pattern without LOB. PLAN: Continue to work on transfer training as tolerated. Treatment time: 25 minutes [id number], [id number] Gila Haines, ELECTRONIC WARFARE TECHNICIAN
--- NOTE | 2019-09-07 17:00 | PDOC.CMIN ---
Care Management Initial Assess REASON FOR HOSPITALIZATION:: (R) Knee DJD PAST MEDICAL HISTORY/PAST SURGICAL HISTORY:: Adenomatous polyp of colon, anxiety, gonzalez esophagus, cancer of L breast, cortical cataract bilat, diabetes, hysterectomy, hyperlipidemia, hypertension, hypothyroid, nuclear sclerotic cataract bilat, obesity, squamous cell skin cancer, uterine cancer, ventral hernia, biopsy of breast, section, endometrial biopsy, left mastectomy PREVIOUS FUNCTIONAL STATUS/SOCIAL/FAMILY SUPPORTS:: Myesha resides alone in [place], [place]. Her daughter, son in law and grandson reside right next door and assist with ADLs. Her grandson earns an allowance providing light house duties such as vaccuuming. Myesha is mostly independent at baseline with great family supports. CM also spoke with Myesha Austin's daughter who is a great advocate for her mother and who was also in support of VNA supports, as recommended. CURRENT FUNCTIONAL STATUS:: Myesha was sitting up in her chair when CM met with her. She reported her current home situation was going well and she shared no concerns at this time. She was pleasant in interaction. ADVANCE DIRECTIVES:: On file, daughter Geovanna as agent. Has patient been provided with information about the portal?: Yes Did the patient sign up for the portal?: Yes (Previously) CODE STATUS:: Full Code INSURANCE COVERAGE / FINANCIAL ISSUES:: [employer] [facility] CURRENT HOME/COMMUNITY SERVICES/EQUIPMENT:: Raised toilet seat, tub seat, handrails, hand held shower, 4WW, FWW, CPAP, Glucometer, ramp, siderails. PRIMARY CARE PHYSICIAN:: Navid Avendaño POTENTIAL DISCHARGE NEEDS:: Follow up appointments with PCP. PATIENT/FAMILY EDUCATION NEEDS:: Review discharge instructions, discuss Ask Me Three. ANTICIPATED BARRIERS TO DISCHARGE:: None identified. TRANSPORTATION:: Myesha will transport via private vehicle with her daughter, Geovanna. PLAN:: Myesha will return home when ready per MD. She will follow up with Dr. Knight, her PCP and plan of care as prescribed. Anticipate she will have new VNA orders for PT/OT upon discharge as well; CM faxed notification to [facility]. Myesha will transport via private vehicle with her daughterGeovanna.
[2019-09-07] MEDS: Insulin Aspart 300 UNITS/3 ML PEN SC (18:19)
[2019-09-07] MEDS: Gabapentin 300 MG CAP PO (21:05)
[2019-09-07] MEDS: rOPINIRole 0.5 MG TAB 2 MG PO (21:05)
[2019-09-07] MEDS: Pravastatin 40 MG TAB PO (21:06)
[2019-09-08 00:44] VITALS: BP 126/74; PULSE 80; RESP 18; TEMP 36.6; O2SAT 91
[2019-09-08 05:04] VITALS: BP 121/75; PULSE 80; RESP 18; TEMP 36.4; O2SAT 91
--- NOTE | 2019-09-08 07:32 | DSE_ITS ---
Date of service: 09/08/19 Time of Service: 14:04 DS: Diagnosis Discharge Diagnosis (1) Osteoarthritis of right knee: Status: Acute Discharge Plan Disposition Patient Disposition: HOME W/HOME HEALTH SERVICE Condition: Improving Discharge Details Reason For Visit: (R) KNEE DJD Admit Date/Time: 09/06/19 10:04 Admit Provider: Andres Knight Attending Provider: Andres Knight Primary Care Provider: Navid Avendaño Hospital Course Hospital Course: Patient was admitted to the medical/surgical floor following the procedure. It was tolerated well without any notable medical, surgical, or anesthetic complications. Mobilization began postoperatively. The dowd catheter was removed and voiding spontaneously. Vitals were stable. Physical therapy worked with the patient and was cleared for discharge home with home health services. No acute medical issues. Home Meds and New Rx's Prescriptions: New celecoxib 200 mg capsule 200 mg PO BID PRN (Reason: pain) Qty: 60 RF: 1 acetaminophen 500 mg tablet 1,000 mg PO Q8H PRN (Reason: pain) Qty: 90 RF: 3 gabapentin 300 mg capsule 300 mg PO QHS Qty: 7 RF: 0 oxycodone 5 mg tablet 2.5 - 5 mg PO Q6H PRN PRNQty: 16 RF: 0 Continued docusate sodium 100 mg capsule 100 mg PO TID RF: 0 furosemide 20 mg tablet 20 mg PO DAILY Qty: 90 RF: 3 lisinopril 10 mg tablet 10 mg PO DAILY Qty: 90 RF: 4 metformin 500 mg tablet 500 mg PO BID Qty: 180 RF: 4 ropinirole 1 mg tablet 2 mg PO HS Qty: 180 RF: 3 letrozole 2.5 mg tablet 2.5 mg PO DAILY RF: 0 levothyroxine 88 mcg tablet 88 mcg PO DAILY Qty: 90 RF: 4 lorazepam 1 mg tablet 1 mg PO HS PRN (Reason: insomnia) Qty: 20 RF: 0 ferrous sulfate 140 mg (45 mg iron) tablet extended release 140 mg PO DAILY RF: 0 omeprazole 20 mg capsule,delayed release(DR/EC) 20 mg PO BID Qty: 180 RF: 4 pravastatin 40 mg tablet 40 mg PO QHS Qty: 90 RF: 4 sertraline 100 mg tablet 100 mg PO DAILY Qty: 90 RF: 4 CPAP RF: 0 cholecalciferol (vitamin D3) [Vitamin D3] 2,000 UNIT capsule 2,000 unit PO DAILY RF: 0 magnesium oxide 400 MG capsule 400 mg PO DAILY RF: 0 Eye Drop Tears 1-0.2-0.2 % Drops 2 drp OPHTHALMIC (EYE) TID-QID PRNRF: 0 Changed aspirin [Ecotrin Low Strength] 81 mg tablet,delayed release (DR/EC) 81 mg PO BID Qty: 60 RF: 0 Discontinued ibuprofen 200 MG capsule 2 cap PO PRN RF: 0 acetaminophen [Tylenol Extra Strength] 500 MG tablet 500 mg PO PRN RF: 0 No Action (DME) FreeStyle Lite Strips Strip 1 strip Miscellaneous DAILY Qty: 100 RF: 4 (DME) blood-glucose meter [FreeStyle Lite Meter] 1 EACH kit 1 ea Miscellaneous DAILY Qty: 1 RF: 0 Discharge Instructions Additional Instructions: Dr. Knight?s Total Knee Discharge Instructions Activity: The most important activity is to walk. You should try to take short walks a few times a day. It is important that when resting you work on keeping the knee straight. Avoid putting a pillow behind the knee as this will encourage flexion. Work on range of motion exercises as provided by Physical Therapy. Use the leg olivas to help with moving in and out of the bed. - You should wear the GARTH hose on both legs for 2 weeks. Dressing: Keep the surgical dressing in place for at least one week. After the first week it may be removed and replace with light gauze and tape or nothing. It may get wet after 3 days but avoid soaking the dressing. If it gets wet, just lightly pat dry. Medications: - You should take Tylenol and anti-inflammatory Celebrex as your primary pain control medications - You have been prescribed a stronger pain medication Oxycodone for breakthrough pain, take as needed as prescribed. - You will continue your stomach acid reduction agent Omeprozole to help reduce stomach acid and reflux. - You will be taking Aspirin 81mg twice a day for DVT prevention unless instructed otherwise. - If you have constipation you should take Colace or Miralax (both [id number]). It takes most people 3-4 days to have a bowel movement. Follow-up: 2 weeks 1. Encounter Date and Reason I certify that JENNIFER LAM was seen by Andres Knight MD on 09/08/19 and that I had a [id number] encounter with this patient that meets the physician face to face encounter requirements. 2. Clinical Findings Supporting Skilled Need and Homebound Status I certify that home health services are medically necessary, include either intermittent prison and/or physical/speech therapy, and that this patient is homebound in that absences from the home require considerable and taxing effort and are infrequent or of short duration, or are attributable to the need to receive medical care. [X] (a) Attached documentation from encounter provides clinical findings supporting skilled need and homebound status (including what assistance patient requires to leave the home). The encounter with the patient was in whole, or in part, for the following medical condition, which is the primary reason for home health care: (R) KNEE DJD [facility]: Physical Therapy: Jennifer is recovering from right knee replacement. She has significant weakness and restriction of motion and gait abnormalities which would benefit from physical and occupational therapy. She should focus on gain ing independence through all ADLs an getting stronger and moremobile using a FWW. ROM should work on gaining both extension and flexion. Speech Therapy: Homebound: Jennifer is unable to leave her home unassisted with notable gait abnormalities and weakness. 3. Certification and Authentication I certify that I composed the above information based on my clinical judgement relating to this patient's medical condition and, if applicable, clinical findings communicated to me by the NPP or inpatient physician who performed the Home Health Referral. All further orders will be obtained through Dr. Andres Knight Referrals: Andres Knight MD [ [facility] STAFF PHYSICIAN] - Activity:: Activity as Tolerated Equipment/Supplies:: No Equipment Needed Diet:: As Tolerated Discharge Orders Discharge Orders: Discharge Order (Routine); Ordered 09/08/19 Ordered By: Andres Knight DS: Summary Status at Discharge Functional status at discharge: uses cane/walker Overall status at discharge: patient is progressing back to baseline Mental Status: mental status grossly normal Speech and Movement: speech and movement normal Mood: congruent mood Affect: normal affect Exam Psych Mental Status: mental status grossly normal Speech and Movement: speech and movement normal Mood: congruent mood Affect: normal affect DS: Data Vitals/I&O Vitals and I&O: Vital Signs Temperature 36.4 C L 03/06/20 05:04 Temperature Source Tympanic 09/08/19 05:04 Pulse 80 09/08/19 05:04 Pulse Rhythm Regular 09/07/19 04:01 Respiratory Rate 18 09/08/19 05:04 Respiratory Effort 09/08/19 02:46 Respiratory Depth Normal 09/08/19 02:46 Respiratory Pattern Normal 09/08/19 02:46 Blood Pressure 121/75 09/08/19 05:04 Pulse Oximetry 91 L 09/08/19 05:04 Respiratory End-tidal CO2 36 09/06/19 16:46 Oxygen Delivery Method Cpap 09/08/19 05:04 Oxygen Flow Rate 0 09/07/19 19:31 Fraction of Inspired Oxygen (FIO2) 21 09/06/19 17:28 Pain Level 3 09/07/19 20:02 Comment 09/07/19 21:18 Intake & Output 09/07/19 09/07/19 09/08/19 11:59 23:59 11:59 Intake Total 1290 / 3279 1989 / 3279 Output Total 600 / 4275 3675 / 4275 1974 Balance 690 / -996 -1686 / -996 -1974 Intake: IV 1050 / 2050 1000 / 2050 Oral 240 / 1229 989 / 1229 Output: Urine 600 / 4275 3675 / 4275 1974 Other: Urine Color Yellow Yellow Pale Yellow Urine Appearance Clear Clear Clear PFSH Medical History Adenomatous polyp of colon Anxiety Arthritis of knee, right (Acute) Avila esophagus Cancer of left breast (Acute ~11/11/18) 11/11/18 DR. SHORT; +ER, +DE 02/21/19; [facility] [place] EVERY 3 WEEKS FOR 12 WEEKS-kb Cortical cataract of left eye (Resolved) Cortical cataract of right eye (Resolved) Diabetes (Chronic) fs: 120-130 per pt. History of seizure (Acute) Pt. states when she was recieving chemotherapy (03/2019), upon initial injection she felt a burning sensation in her arm, pt. states she stood up, says her mind went blank. The doctors told pt. she had a chemical reaction, and that she had two seizures, and she was also told that she coded twice during this experience. (Pt. oncologist is Dr. Olivera) Hyperlipidemia Hypertension Hypothyroid Left carotid stenosis (Acute) Nuclear sclerotic cataract of left eye (Resolved) Nuclear sclerotic cataract of right eye (Resolved) Obesity, Class III, BMI 40-49.9 (morbid obesity) Sleep apnea (Acute) uses device Squamous cell skin cancer Uterine cancer (Acute) Ventral hernia (Acute) Surgical History Biopsy of breast x 5-6; cyst aspirated 1993 section Endometrial Biopsy (~2006) NEG H/O: hysterectomy (Chronic) History of hysterectomy (Chronic) History of hysterectomy (Chronic) S/P left mastectomy (Acute ~12/07/18) with sentinel lymph node biopsy Status post cataract extraction and insertion of intraocular lens of left eye (Chronic 05/30/18) Status post cataract extraction and insertion of intraocular lens of right eye (Resolved 05/16/18) Status post cataract extraction and insertion of intraocular lens of right eye (Chronic 05/16/18) Family History Mother Diabetes Essential hypertension Personal history of malignant neoplasm Stomach Heart disease Hyperlipidemia Stroke Father No problems noted. Sister Essential hypertension Hyperlipidemia Asthma Brother Alcohol abuse Essential hypertension Personal history of malignant neoplasm Esophagus Depression Hyperlipidemia Grandfather Personal history of malignant neoplasm Heart disease Asthma Grandfather Heart disease Grandmother Heart disease Grandmother Essential hypertension Heart disease Hyperlipidemia Stroke Brother Diabetes Essential hypertension CHF (congestive heart failure) Heart disease Hyperlipidemia COPD (chronic obstructive pulmonary disease) Asthma Daughter Depression Social History Smoking/Tobacco Use Status: Never Alcohol Intake: never Drug use: Never Substance use type: does not use 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
--- NOTE | 2019-09-08 08:05 | W.PM.PROGNOT ---
Date of Service Date of service: 09/08/19 Time of Service: 08:05 Assessment and Plan Assessment and plan (1) Osteoarthritis of right knee: Status: Acute Assessment and plan: Myesha is doing well and making progress. I will want her to work with PT today to focus on mobilizing out of the bed and chair. If she is able to do this, then she should be able to d/c to home later today with HHS. Qualifiers: Osteoarthritis type: primary Qualified Code(s): M17.11 - Unilateral primary osteoarthritis, right knee Subjective Subjective Interval history since last seen: Myesha reports some pain in the knee, mostly posteriorly. She has had some difficulties on transferring or mobilizing indepdently out of the bed although was able to walk yesterday. She and nursing has some concerns about independent moblization. Objective Objective Clinical Data: Vital Signs Temperature 36.4 C L 09/08/19 05:04 Temperature Source Tympanic 09/08/19 05:04 Pulse 80 09/08/19 05:04 Pulse Rhythm Regular 09/07/19 04:01 Respiratory Rate 18 09/08/19 05:04 Respiratory Effort 09/08/19 02:46 Respiratory Depth Normal 09/08/19 02:46 Respiratory Pattern Normal 09/08/19 02:46 Blood Pressure 121/75 09/08/19 05:04 Pulse Oximetry 91 L 09/08/19 05:04 Respiratory End-tidal CO2 36 09/06/19 16:46 Oxygen Delivery Method Cpap 09/08/19 05:04 Oxygen Flow Rate 0 09/07/19 19:31 Fraction of Inspired Oxygen (FIO2) 21 09/06/19 17:28 Pain Level 3 09/07/19 20:02 Comment 09/07/19 21:18 Intake & Output 09/07/19 09/07/19 09/08/19 11:59 23:59 11:59 Intake Total 1290 / 3279 1988 Output Total 600 / 4275 3675 / 4275 1974 Balance 690 / -996 -1686 / -996 -1974 Intake: IV 105 / 2049 999 / 2049 Oral 240 / 1229 989 / 1229 Output: Urine 600 / 4275 3675 / 4275 1974 Other: Urine Color Yellow Yellow Pale Yellow Urine Appearance Clear Clear Clear
[2019-09-08] MEDS: Insulin Aspart 300 UNITS/3 ML PEN SC ×2 (10:19→12:17)
[2019-09-08] MEDS: Aspirin E.C. 81 MG TABEC PO (10:20)
[2019-09-08] MEDS: Cholecalciferol (Vitamin D3) 1,000 UNIT TAB 2000 UNITS PO (10:20)
[2019-09-08] MEDS: Sertraline 50 MG TAB 100 MG PO (10:20)
[2019-09-08] MEDS: Pantoprazole 40 MG TABCR PO (10:20)
[2019-09-08] MEDS: Letrozole 2.5 MG TAB PO (10:20)
[2019-09-08] MEDS: Lisinopril 10 MG TAB PO (10:21)
[2019-09-08] MEDS: Docusate Sodium 100 MG CAP PO ×2 (10:21→14:22)
[2019-09-08] MEDS: Magnesium Oxide 400 MG TAB PO (10:21)
[2019-09-08] MEDS: Celecoxib 100 MG CAP PO (10:21)
[2019-09-08] MEDS: Acetaminophen 500 MG TAB 1000 MG PO ×2 (10:22→14:22)
[2019-09-08] MEDS: metFORMIN 500 MG TAB PO (10:23)
[2019-09-08] MEDS: Furosemide 20 MG TAB PO (10:23)
[2019-09-08 10:43] VITALS: O2SAT 96
--- NOTE | 2019-09-08 11:17 | PT.INTREAT ---
Date of service: 09/08/19 Time of Service: 11:17 PT Notes Visit Reasons: (R) KNEE DJD 09/08/2019 SUBJECTIVE: Myesha reporting 09/11 discomfort R knee. She is concerned about getting out of bed at home. OBJECTIVE: Pt supine in bed. Agreeable to PT treatment. Treatment focused on transfer training. TRANSFERS Supine to sit: S with leg industrial hire sales assistant Sit to supine: S with leg industrial hire sales assistant Sit to stand: SBA Stand to sit: SBA GAIT Device: FWW Weight bearing: AT R Assist: SBA Distance: 50' Deviation: Step to pattern THEREX: Review HEP, Pt requires AA SLR today although good effort noted. ASSESSMENT: Pt able to get in and out of bed with supervision only using her leg industrial hire sales assistant. She feels more comfortable with this. She ambulates well for short distances with step to pattern, no LOB. She toilets independently for me today including cleaning and getting up and down from a low toilet seat. PLAN: Continue with transfer training early this afternoon and assess discharge options. Treatment time: 40 minutes [id number], [id number] Gila Haines, MACHINE DESIGN CHECKER
--- NOTE | 2019-09-08 12:05 | PDOC.CMDIS ---
LACE Index Scoring Tool - Questions: Length of Stay (in days): 2 Acuity (Admit via E.D.?): Yes Comorbidities: Diabetes w/o Complication, Any Tumor E.D. Visits: 1 - Answers: Total Score: 9 Risk of Readmission: Low Risk Care Management Discharge Reason for Hospitalization: (R) Knee DJD Discharge Plan: Myesha will return home when ready per MD. She will follow up with Dr. Knight, her PCP and plan of care as prescribed. Anticipate she will have new VNA orders for PT/OT upon discharge as well; CM faxed notification to [facility]. Myesha will transport via private vehicle with her daughter, Geovanna. Patient/Family Education Needs: Review discharge instructions, discuss Ask Me Three. Services Needed at Discharge: DME Agency (Resume), Home Health Care Services (PT/OT )
--- NOTE | 2019-09-08 15:22 | PT.INTREAT ---
Date of service: 09/08/19 Time of Service: 15:22 PT Notes Visit Reasons: (R) KNEE DJD 09/08/2019 SUBJECTIVE: Pt feeling pretty good this afternoon. She feels more confident with going home. OBJECTIVE: [id number] Treatment consisted of transfer training in and out of bed. Pt utilizes leg access service representative to assist her in and out of bed which she can do independently. Review HEP and she performs 2x5 SLR with 20% assist. She transfers with SBA only and toilets independently. ASSESSMENT/PLAN: Pt's transfers improved today with use of leg access service representative to assist her R leg into and out of the bed. She is more confident with her transfers and gait. Pt will be discharged home today. See discharge summary for details. Treatment time: 17 minutes [id number] Gila Haines, GYM ATTENDANT
[2019-09-08 16:22] VITALS: BP 134/75; PULSE 85; RESP 22; TEMP 36.7; O2SAT 96
--- NOTE | 2019-09-11 12:42 | PT.INDS ---
Date of service: 09/11/19 PT Notes Visit Reasons: (R) KNEE DJD Inpatient Physical Therapy Discharge Summary Dates: 09/11/2019 Dates of Service: 09/07/2019 through 09/08/2019 This is a clinical summary of care provided on the duration of dates listed above. No charge was made in the completion of this documentation. Referring Doctor: Andres Knight MD PT Orders: PT CONSULT: Status post Ortho surgery. Precautions: Fall. Standard. WBAT on right LE. Patient Profile/Admitting Diagnosis: Patient is a 74-year-old female who is status post right knee total arthroplasty on postoperative day 2 due to degenerative joint disease of the right knee. PMHX: Medical History Adenomatous polyp of colon Anxiety Avila esophagus Cancer of left breast (Acute ~11/11/18) 11/11/18 DR. SHORT; +ER, +DC 02/21/19; [facility] [place];CHEMO [place] EVERY 3 WEEKS FOR 12 WEEKS-kb Cortical cataract of left eye (Resolved) Cortical cataract of right eye (Resolved) Diabetes (Chronic) H/O: hysterectomy (Chronic) History of hysterectomy (Chronic) History of hysterectomy (Chronic) Hyperlipidemia Hypertension Hypothyroid Nuclear sclerotic cataract of left eye (Resolved) Nuclear sclerotic cataract of right eye (Resolved) Obesity, Class III, 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 skin cancer Uterine cancer (Acute) Ventral hernia (Acute) Surgical History Biopsy of breast x 5-6; cyst aspirated 1993 section Endometrial Biopsy (~2006) NEG S/P left mastectomy (Acute ~12/07/18) with sentinel lymph node biopsy Status post cataract extraction and insertion of intraocular lens of left eye (Chronic 05/30/18) Status post cataract extraction and insertion of intraocular lens of right eye (Resolved 05/16/18) Status post cataract extraction and insertion of intraocular lens of right eye (Chronic 05/16/18) Social History/Home Situation: Patient lives alone in a mobile home with a with 2 ramps to enter. She was still driving a week prior to surgery. She is independent with all mobility ADL performance using a four-wheeled walker. She is able to make her own meals, light housekeeping, and laundry. Her daughter does grocery shopping. Her daughter and her daughter's lives from across her and are readily available if help is needed. Equipment Owned/DME: Hospital bed, three SPC's, three 4WW, walk-in shower, shower chair, LifeFit Steps emergency alert device, electric recliner, grab bars Subjective: NT Objective: General Observation: NT Mental Status: NT Pain: NT ROM: Right Upper Extremity: Shoulder Flexion WFL. Shoulder abduction WFL. Elbow flexion WFL. Wrist flexion WFL. Opening and closing of hand WFL. Left Upper Extremity: Shoulder Flexion WFL. Shoulder abduction WFL. Elbow flexion WFL. Wrist flexion WFL. Opening and closing of hand WFL. Right Lower Extremity: Hip flexion about 10 degrees beyond 90 while seated on chair.. Hip abduction WFL. Knee flexion -20 to 70 degrees. Knee extension -20 degrees. Ankle dorsiflexion WFL. Ankle plantarflexion WFL. Left Lower Extremity: Hip flexion WFL. Hip abduction WFL. Knee flexion WFL. Ankle dorsiflexion WFL. Ankle plantarflexion WFL. Strength: Right Upper Extremity: Shoulder flexors 5/5. Shoulder abductors 5/5. Elbow flexors 5/5. Elbow extensors 5/5. Group President strong. Left Upper Extremity: Shoulder flexors 5/5. Shoulder abductors 5/5. Elbow flexors 5/5. Elbow extensors 5/5. Group President strong. Right Lower Extremity: Hip flexors 3-/5. Hip abductors 5/5. Knee flexors 3-/5. Knee extensors 3-/5. Ankle dorsiflexors 4/5. Ankle plantarflexors 4/5. Left Lower Extremity: Hip flexors 4/5. Hip abductors 5/5. Knee flexors 4/5. Knee extensors 4/5. Ankle dorsiflexors 4/5. Ankle plantarflexors 4/5. Sensation: Intact as to pain and pressure on bilateral lower extremities. Bed Mobility/Transfers: Supine to sit: Independent with leg hand fretted instrument maker Sit to supine: Independent with leg hand fretted instrument maker Sit to stand supervision Stand to sit supervision Bed to chair supervision Chair to bed supervision Gait: Patient tolerated level surface ambulation of 25 feet using a front-wheeled walker with feet supervision. Decreased step height on the right side. Denies headache, chest pain, and dizziness throughout gait activity. Balance: Static Sitting: Normal Dynamic Sitting: Normal Static Standing: Fair Dynamic Standing: Fair Assessment: Mild difficulty with walking, impairment in balance, weakness of right LE, increased fall risk, and limited ADL performance due to postoperative status. Patient has all the mobility equipment that she will need in order to facilitate independence with mobility ADL performance while reducing fall risk. She has good family support with her daughter and daughter's family living from across of her house. Patient is a 74-year-old female who is status post right knee total arthroplasty on postoperative day 2 due to degenerative joint disease of the right knee. Goals listed below have been met and patient therefore will benefit from home health PT services. Patient presented with clinical signs and symptoms consistent with current/admitting diagnoses that have resulted to mobility limitations, gait instability, generalized weakness, and impairment of motor control as demonstrated by the following impairment level findings: 1. Decreased strength to right LE major muscle groups 2. Impaired standing balance 3. Impaired activity tolerance 4. Limitation of joint range of motion in right knee Impairments conjugated to the following functional limitations: 1. Inability to safely ambulate without assistive device and physical assistance 2. Increase completion time for mobility ADL performance 3. Increased fall risk 4. Inability to negotiate steps alone safely Goals: Goals X1 week 1. Supine-Sit independent MET 2. Sit-Supine independent MET 3. Sit-Stand independent NOT MET 4. Stand-Sit independent NOT MET 5. Bed-Chair independent NOT MET 6. Chair-Bed independent NOT MET 7. Independent gait on level surface with use of least restrictive device for at least 300 feet without report of pain nor dyspnea NOT MET 8. Independent stair negotiation while holding onto bilateral rails for at least 10 steps without report of pain nor dyspnea NOT MET 9. Independent with home exercise program NOT MET 10. Good static and dynamic standing balance/tolerance NOT MET DISCHARGE RECOMMENDATIONS: Patient will benefit from home health PT services for continued mobility training in the home setting to reduce fall risk, facilitate independence, and increase ability of patient to remain at home. TREATMENT CODE/TIME: LENCHO Thank you very much for this referral. Kari Flynn PT, DPT, CLT [facility] [place], [place]
== END 2019-09-08 17:21 | disposition home health service (06) | DRG 470 ==
LOC: PDS 10:06 → MS 09-07 11:10
PROVIDERS: Admitting Provider Student in an Organized Health Care Education/Training Program; PCP Family Medicine; Visit Provider Student in an Organized Health Care Education/Training Program
PROC: 0SRC0J9 Replacement of Right Knee Joint with Synthetic Substitute, Cemented, Open Approach (ICD-10-PCS; CPT 27447; principal; 2019-09-06 14:00)
PROC: 0SRC0J9 Replacement of Right Knee Joint with Synthetic Substitute, Cemented, Open Approach (ICD-10-PCS; CPT 27447; 2019-09-06 14:00)
DX: M17.11 Unilateral primary osteoarthritis, right knee (principal); Z68.41 Body mass index [BMI] 40.0-44.9, adult; M25.561 Pain in right knee; Z96.651 Presence of right artificial knee joint; G89.18 Other acute postprocedural pain; E11.9 Type 2 diabetes mellitus without complications; E78.5 Hyperlipidemia, unspecified; I10 Essential (primary) hypertension; E03.9 Hypothyroidism, unspecified; E66.9 Obesity, unspecified; Z79.84 Long term (current) use of oral hypoglycemic drugs
CPT/HCPCS: 27447; 20985; 76942; 97110; 97162; 97530; NC; J0690; J1885; J2250; J2370; J2405; J3010

== ENCOUNTER 2019-12-21 03:05 | Outpatient (CLI) | payer OTHER, SELFPAY ==
--- NOTE | 2019-12-21 | DI.MAMMO_ITS ---
EXAM: MG MAMMO SCREENING 60 MIN DUR CLINICAL HISTORY: SCREENING, LT BREAST CA, C50.912, S/P MASTECTOMY AND RADIATION TECHNIQUE: Mammograms were interpreted according to the usual protocol including computer analysis w [employer] CAD system, tomosynthesis and C-view imaging. COMPARISON: 2009 through 2018 FINDINGS: The patient is status post left mastectomy. The right breast is composed of heterogeneously dense fi broglandular densities, Breast Density category C. No suspicious masses or suspicious microcalcifications are seen. Coarse, benign calcifications are a gain noted. No skin thickening or abnormal axillary lymph nodes are seen. There has been no significant change from prior exams. IMPRESSION: BI-RADS Category 2 - Benign Findings. Yearly screening mammography is recommended. Breast Density Category C, heterogeneously dense tissue which decreases the sensitivity of the mammog caryn. The mammogram demonstrates the patient's breast tissue is dense. Dense breast tissue is very common a nd is not abnormal but dense breast tissue can make it harder to find cancer on a mammogram. Also, de nse breast tissue may increase breast cancer risk. This information about the result of the mammogram report was provided to the patient to raise their awareness. Use this report when you speak with the patient about their risks for breast cancer, which includes their family history. At that time, you may recommend additional screening tests (Ultrasound or MRI) as they might be useful based on their r isk. A negative radiographic report should not delay biopsy if a dominant or clinically suspicious mass is present. Up to ten percent of cancers are not identified on mammography. A negative report may reinforce clinical impression. Adenosis and dense breasts may obscure an underlying neoplasm. False positive reports average 6 to 10%.
== END 2019-12-21 03:25 ==
PROVIDERS: PCP Family Medicine; Visit Provider Radiology Radiation Oncology
DX: Z12.31 Encounter for screening mammogram for malignant neoplasm of breast (principal); C50.912 Malignant neoplasm of unspecified site of left female breast; Z90.12 Acquired absence of left breast and nipple; Z92.3 Personal history of irradiation; R92.1 Mammographic calcification found on diagnostic imaging of breast
CPT/HCPCS: 77063; 77067

== ENCOUNTER 2019-12-21 04:20 | Outpatient (CLI) | payer OTHER, SELFPAY ==
[2019-12-21 13:09] LABS: Abs Immature Grans 0.02 k/cumm (0.0-0.09); Absolute Basophil Count 0.02 k/cumm (0.0-0.2); Absolute Eosinophil Count 0.06 k/cumm (0.0-0.7); Absolute Lymphocyte Count 0.84 k/cumm (1.2-3.4); Absolute Monocyte Count 0.38 k/cumm (0.11-0.7); Absolute Neutrophil Count 5.07 k/cumm (1.2-6.7); Basophils % 0.3; Eosinophils % 0.9; HCT 31.8 % (36.0-46.0); HGB 10.1 g/dL (12.0-15.5); Immature Grans % 0.3 %; Lymphocytes % 13.1; Mean Corp. HGB Concentration 31.8 g/dL (32.0-36.0); Mean Platelet Volume 10.1 fL (8.0-11.0); Monocytes % 5.9; Neutrophils % 79.5; Platelet Count 226 x1000/uL (130-400); RBC 3.74 m/cumm (4.00-5.20); RBC Distribution Width 15.4 % (11.7-14.6); Reticulocyte 1.5 % (0.5-2.4); White Blood Cell Count 6.39 k/cumm (4.4-10.8)
[2019-12-21 14:01] LABS: ALT 21 U/L (14-59); AST 14 U/L (15-37); Albumin 3.8 g/dL (3.4-5.0); Alkaline Phosphatase 98 U/L (46-116); Anion Gap 9.1 mmol/L (3-11); BUN 20 mg/dL (7-18); Bilirubin, Total 0.3 mg/dL (0.2-1.0); CO2 28.9 mmol/L (21.0-32.0); CREATININE 1.18 mg/dL (0.55-1.02); Calcium 9.4 mg/dL (8.5-10.1); Chloride 100 mmol/L (98-107); Glucose 126 mg/dL (74-106); LDH 123 U/L (81-234); Potassium 3.8 mmol/L (3.5-5.1); Sodium 138 mmol/L (136-145); Total Protein 7.1 g/dL (6.4-8.2)
[2019-12-21 14:40] LABS: Vitamin B12 532 pg/mL (193-986)
[2019-12-21 14:46] LABS: Folate > 20.0 ng/mL (8.6-20.0)
[2019-12-21 14:57] LABS: Iron 64 ug/dL (50-170); Total Iron Binding Capacity 307 ug/dL (250-450); Transferrin Sat 21 % (15-50)
[2019-12-21 17:43] LABS: Ferritin 35 ng/mL (8-252)
[2019-12-22 11:19] LABS: Haptoglobin 207 mg/dL (32-197)
[2019-12-22 14:23] LABS: Albumin 58.5 % (55.8-66.1); Total Protein 6.9 g/dL (6.3-8.2)
[2019-12-26 09:27] LABS: Methylmalonic Acid 0.38 nmol/mL (<=0.40)
== END 2019-12-21 04:40 ==
PROVIDERS: PCP Family Medicine; Visit Provider Internal Medicine
DX: C50.912 Malignant neoplasm of unspecified site of left female breast (principal); D64.9 Anemia, unspecified
CPT/HCPCS: 36415; 80053; 80186; 82607; 82728; 82746; 83010; 83540; 83550; 83615; 84165; 85025; 85045

== ENCOUNTER 2020-02-26 02:48 | Outpatient (CLI) | payer OTHER, SELFPAY ==
[2020-02-26 12:26] LABS: Hemoglobin A1C 6.8 % (3.8-5.6)
[2020-02-26 12:49] LABS: Epithelial Cells Few HPF (Negative); RBC Negative HPF (0-2); WBC Negative HPF (0-5)
[2020-02-26 12:50] LABS: Bacteria Rare HPF (Negative); C & S Indicated? No; Casts Negative LPF (Negative); Crystals Negative HPF (Negative); Mucus Negative (Negative); Other Cells Few Renal (Negative)
[2020-02-26 13:11] LABS: C-Reactive Protein 0.26 mg/dL (0.0-0.3)
[2020-02-26 13:44] LABS: ESR 53 mm/hr (0-30)
[2020-02-26 21:31] LABS: Rheumatoid Factor <8.6 IU/mL (<12.0)
[2020-02-27 13:49] LABS: ANA Interpretation Positive (Negative); ANA Titer Pattern 1:160 Homogeneous
[2020-02-29 12:14] LABS: dsDNA Ab, IgG 75.3 IU/mL (<30.0)
== END 2020-02-26 03:08 ==
PROVIDERS: PCP Family Medicine; Visit Provider Family Medicine
DX: R73.9 Hyperglycemia, unspecified (principal); R30.0 Dysuria; M19.041 Primary osteoarthritis, right hand; R76.8 Other specified abnormal immunological findings in serum; E11.9 Type 2 diabetes mellitus without complications; I10 Essential (primary) hypertension
CPT/HCPCS: 36415; 85652; 81015; 83036; 86038; 86140; 86225; 86431

== ENCOUNTER 2020-04-04 05:37 | Outpatient (CLI) | payer OTHER, SELFPAY ==
[2020-04-04 13:20] LABS: Abs Immature Grans 0.04 10^3/uL (0.0-0.06); Absolute Basophil Count 0.02 10^3/uL (0.0-0.2); Absolute Eosinophil Count 0.07 10^3/uL (0.0-0.7); Absolute Lymphocyte Count 0.75 10^3/uL (1.2-3.4); Absolute Monocyte Count 0.42 10^3/uL (0.1-0.8); Basophils % 0.3; Eosinophils % 1.2; HCT 32.3 % (36.0-46.0); HGB 10.2 g/dL (11.2-15.7); Immature Grans % 0.7; Lymphocytes % 12.5; MCH 27.2 pg (27.0-33.0); MCHC 31.6 % (32.0-36.0); MCV 86.1 fL (80-95); MPV 11.2 fL (8.0-11.0); Neutrophils % 78.3; Nucleated RBC 0 %; Platelet Count 209 10^3/uL (130-400); RBC 3.75 10^6/uL (3.93-5.22); RDW 15.8 % (11.7-14.6); RDW-SD 49.4 fL; Reticulocyte 1.9 % (0.5-2.4)
[2020-04-04 13:27] LABS: Iron 37 ug/dL (50-170); Total Iron Binding Capacity 311 ug/dL (250-450); Transferrin Sat 12 % (15-50)
[2020-04-04 13:30] LABS: TSH (W/Ref FT4) 4.27 uIU/mL (0.36-3.74)
[2020-04-04 13:45] LABS: ALT 23 U/L (14-59); AST 15 U/L (15-37); Albumin 3.8 g/dL (3.4-5.0); Alkaline Phosphatase 92 U/L (46-116); Anion Gap 6.1 mmol/L (3-11); BUN 15 mg/dL (7-18); Bilirubin, Total 0.3 mg/dL (0.2-1.0); CO2 29.9 mmol/L (21.0-32.0); CREATININE 1.23 mg/dL (0.55-1.02); Calcium 9.3 mg/dL (8.5-10.1); Chloride 102 mmol/L (98-107); Ferritin 31 ng/mL (8-252); Glucose 132 mg/dL (74-106); Potassium 4.2 mmol/L (3.5-5.1); Sodium 138 mmol/L (136-145); Total Protein 6.9 g/dL (6.4-8.2)
[2020-04-04 13:46] LABS: Folate > 20.0 ng/mL (8.6-20.0)
[2020-04-04 13:56] LABS: LDH 124 U/L (81-234)
[2020-04-04 13:58] LABS: FREE T4 1.02 ng/dL (0.76-1.46)
[2020-04-05 09:22] LABS: Haptoglobin 185 mg/dL (32-197)
[2020-04-05 12:57] LABS: Albumin 57.9 % (55.8-66.1); Total Protein 6.8 g/dL (6.3-8.2)
[2020-04-09 13:05] LABS: Methylmalonic Acid 0.34 nmol/mL (<=0.40)
== END 2020-04-04 05:57 ==
PROVIDERS: Internal Medicine; PCP Family Medicine; Visit Provider Family Medicine
DX: D64.9 Anemia, unspecified (principal); C50.912 Malignant neoplasm of unspecified site of left female breast; Z17.0 Estrogen receptor positive status [ER+]
CPT/HCPCS: 36415; 80053; 80186; 82728; 82746; 83010; 83540; 83550; 83615; 84165; 84439; 84443; 85025; 85045

== ENCOUNTER 2020-05-17 01:21 | Outpatient (CLI) | payer OTHER, SELFPAY ==
[2020-05-19 09:28] LABS: SARS-CoV-2 RNA Not Detected (NotDetected); SARS-CoV-2 RNA Source Nasal/Nares
== END 2020-05-17 01:41 ==
PROVIDERS: PCP Family Medicine; Visit Provider Surgery
DX: Z11.59 Encounter for screening for other viral diseases (principal); Z01.818 Encounter for other preprocedural examination
CPT/HCPCS: U0003

== ENCOUNTER 2020-05-22 06:15 | Day surgery (SDC) | payer OTHER, SELFPAY ==
[2020-05-22 06:41] VITALS: BP 116/62; PULSE 70; RESP 18; TEMP 36.4; O2SAT 95
--- NOTE | 2020-05-22 06:54 | W.PM.ENDDOP ---
Date of service: 05/22/20 Time of Service: 07:37 Endoscopy Report DATE OF PROCEDURE: 05/22/20 PRE-OP DIAGNOSIS: Anemia POST-OP DIAGNOSIS: other (diverticulosis, polyps, mild gastritis and esophagitis, internal hemorrhoids) PROCEDURE: 1. EGD with biopsy 2. Colonoscopy with polypectomy SURGEON: Minnie Bedolla ANESTHESIA: other (General/ASA 2/Jayla Wil, REFERRAL COORDINATOR) ESTIMATED BLOOD LOSS: 5 PATHOLOGY: other (Gastric bx, gastrric polyp, GE junction bx, 15 small polyps) COMPLICATIONS: None DISPOSITION: same day INDICATIONS: 74-year-old female status post mastectomy for breast cancer who has had chronic iron deficiency anemia. She was placed on iron supplements but this has not helped. She was seen today to discuss an upper endoscopy and colonoscopy. She is asymptomatic from her anemia at this time and has not noticed any bleeding. Her heartburn and reflux are controlled with twice daily omeprazole. Differential diagnosis includes gastritis gastric ulcers with bleeding, esophagitis with bleeding, malabsorption due to omeprazole and occult bleeding from the large bowel. P\\ EGD and Colonoscopy under sedation Risks, benefits and complications have been reviewed. Complications include but are not limited to bleeding, pain, perforation, missed small lesion/polyp, sore throat, aspiration and adverse reaction to the medications. Questions were entertained and answered to their satisfaction and they wished to proceed. No guarantees were given or implied. PREP: Miralax/Dulcolax PROCEDURE START TIME: 07:37 PROCEDURE END TIME: 08:29 COLONOSCOPY RETRACTION TIME: 35 minutes FINDINGS: mild gastritis and esophagitis. No active bleeding 15 small polyps throughout PROCEDURE DESCRIPTION: After informed consent was obtained the patient was take to the procedure room and placed in a supine position. Monitors were applied and a time out was done. The patients name, date of , procedure type, allergies to medications and metal in their body was reviewed. A bite block was placed and the patient was sedated. Once sedated and comfortable the gastroscope was advanced through the oropharynx which was grossly normal into the esophagus. The proximal and mid-esophagus were normal. There was normal peristalsis noted. In the distal esophagus there was mild inflammation noted. The scope was advanced into the stomach and through the pylorus into the 3rd portion of the duodenum. The duodenum was noted to be normal. The scope was retracted back into the stomach. There were a few gastric polyps. These looked like benign fundic polyps. One was biopsied. There was mild inflammation and biopsies were done to rule out H. pylori. There were no ulcers. The scope was retro-flexed. The cardia and fundus were noted to be normal. There was no hiatal hernia noted. The scope was retracted back into the esophagus and biopsies were done of the GE junction to rule out Avila's. The Z line was regular. The GE junction was at 40 cm. While the patient was still sedated they were placed in a left decubitous position. A rectal exam was done. External exam was normal. Internal exam revealed a normal sphincter tone and no palpable masses. The scope was then introduced and retro-flexed. Grade 1 internal hemorrhoids were identified. The scope was then advanced to the cecum without difficulty. The ileocecal valve and appendiceal orifice were identified. The prep was adequate. The scope was then slowly retracted over 35 minutes back into the rectum. Polyps were removed with cold forceps in the Transverse colon x1, descending colon polyps x5, sigmoid colon polyps x6 and rectal polyps x3. There was also kendrick-diverticulosis noted. There was no active bleeding noted. The scope was removed and the patient was woken up and taken back to Same day surgery in stable condition. The patient tolerated the procedure well and there were no immediate complications. Follow up: Will depend on biopsy results
--- NOTE | 2020-05-22 07:08 | W.PM.DSUDISC ---
Discharge Plan Disposition Patient Disposition: HOME Condition: Stable Discharge Details Reason For Visit: colo/egd Attending Provider: Minnie Bedolla Primary Care Provider: Navid Avendaño Home Meds and New Rx's Prescriptions: Continued docusate sodium 100 mg capsule 100 mg PO TID RF: 0 levothyroxine 88 mcg tablet 88 mcg PO DAILY Qty: 90 RF: 4 ferrous sulfate 140 mg (45 mg iron) tablet extended release 140 mg PO DAILY RF: 0 (DME) FreeStyle Lite Strips Strip 1 strip Miscellaneous DAILY Qty: 100 RF: 4 sertraline 100 mg tablet 100 mg PO DAILY Qty: 90 RF: 4 lisinopril 10 mg tablet 10 mg PO DAILY Qty: 90 RF: 4 furosemide 20 mg tablet 20 mg PO DAILY Qty: 90 RF: 3 metformin 500 mg tablet 500 mg PO BID Qty: 180 RF: 4 omeprazole 20 mg capsule,delayed release(DR/EC) 20 mg PO BID Qty: 180 RF: 4 pravastatin 40 mg tablet 40 mg PO QHS Qty: 90 RF: 4 lorazepam 1 mg tablet 1 mg PO HS PRN (Reason: insomnia) Qty: 20 RF: 0 CPAP RF: 0 cholecalciferol (vitamin D3) [Vitamin D3] 2,000 UNIT capsule 2,000 unit PO DAILY RF: 0 magnesium oxide 400 MG capsule 400 mg PO DAILY RF: 0 (DME) blood-glucose meter [FreeStyle Lite Meter] 1 EACH kit 1 ea Miscellaneous DAILY Qty: 1 RF: 0 gabapentin 300 mg capsule 300 mg PO QHS Qty: 14 RF: 0 celecoxib 200 mg capsule 200 mg PO BID PRN (Reason: pain) Qty: 60 RF: 1 acetaminophen 500 mg tablet 1,000 mg PO Q8H PRN (Reason: pain) Qty: 90 RF: 3 aspirin [Ecotrin Low Strength] 81 mg tablet,delayed release (DR/EC) 81 mg PO BID Qty: 60 RF: 0 Eye Drop Tears 1-0.2-0.2 % Drops 2 drp OPHTHALMIC (EYE) TID-QID PRNRF: 0 Discontinued polyethylene glycol 3350 17 gram/dose powder 238 g PO ONCE Qty: 238 RF: 0 bisacodyl [Dulcolax (bisacodyl)] 5 mg tablet,delayed release (DR/EC) 5 mg PO ONCE Qty: 4 RF: 0 Discharge Instructions Instructions: Colorectal Polyps (DC), Diverticulosis (DC), Gastritis (DC), Hemorrhoids (DC) Additional Instructions: Findings: 1. mild inflammation in the esophagus and stomach 2. Diverticulosis 3. Numerous small polyps 4. internal hemorrhoids Follow up: Depends on final pathology Please call if you develop: fevers >101.5 Nausea or Vomiting Abdominal pain that is not transient DAY SURGERY UNIT POST ENDOSCOPY INSTRUCTIONS 1. Because there will be medication in your system for the next 24 hours, you may feel a little sleepy. Your coordination will be affected. Therefore: a. Do not drive or operate dangerous equipment for 24 hours. b. Do not drink alcohol beverages for 24 hours (not even beer). c. Plan to go home and rest for the day. 2. Generally there are no restrictions on your activity after a day or so has gone by, but you may feel a bit fatigued for a few days. 3 After you arrive home you may have a light meal and return to a normal diet as you can tolerate it without feeling sick to your stomach. 4. After surgery, you may feel pain or discomfort. This should be only transient, but if it persists please contact your doctor. 5. If there are any questions regarding the findings of your procedure, please feel free to contact your doctor. 6. If you are unable to contact your doctor with a problem, contact the hospital at [phone]. 7. Continue all your regular medications unless directed otherwise. I understand the above instructions and have no questions. Signature of Patient or Responsible Adult Escort Date/Time Name of Responsible Adult Escort Signature of Nurse Date/Time Activity:: Activity as Tolerated Diet:: High Fiber diet Discharge Orders Discharge Orders: Discharge Order (Routine); Ordered 05/22/20 Ordered By: Minnie Bedolla
[2020-05-22] MEDS: Lactated Ringers 1,000 ML 80 ML IV (07:20)
--- NOTE | 2020-05-22 07:22 | HPE_ITS ---
Assessment and Plan Assessment and plan (1) Iron deficiency anemia: Status: Acute Assessment and plan: A\\74-year-old female status post mastectomy for breast cancer who has had chronic iron deficiency anemia. She was placed on iron supplements but this has not helped. She was seen today to discuss an upper endoscopy and colonoscopy. She is asymptomatic from her anemia at this time and has not noticed any bleeding. Her heartburn and reflux are controlled with twice daily omeprazole. Differential diagnosis includes gastritis gastric ulcers with bleeding, esophagitis with bleeding, malabsorption due to omeprazole and occult bleeding from the large bowel. P\\ EGD and Colonoscopy under sedation Risks, benefits and complications have been reviewed. Complications include but are not limited to bleeding, pain, perforation, missed small lesion/polyp, sore throat, aspiration and adverse reaction to the medications. Questions were entertained and answered to their satisfaction and they wished to proceed. No guarantees were given or implied. Qualifiers: Iron deficiency anemia type: unspecified iron deficiency Qualified Code(s): D50.9 - Iron deficiency anemia, unspecified History of Present Illness Narrative: Myesha is back to see me today to discuss having an EGD and Colonoscopy done. Myesha has had chronic iron deficiency anemia since her breast cancer diagnosis. She was started on iron but despite that her hemoglobins have been low. I have been asked by her oncologist to see her and perform an upper endoscopy and colonoscopy. Myesha does have a history of GERD and Avila's esophagitis. She is on omeprazole twice a day. She has had no symptoms of acid reflux or heartburn. She denies any dysphagia. She denies any changes in bowel habits, melena, hematochezia, abdominal pain, family history of colon cancer or unintentional weight loss. Myesha is struggling with her memory since her chemotherapy. She only received a small amount of chemotherapy as she developed a chemical reaction with a seizure. She then underwent radiation to her chest instead of chemotherapy. She has had no cardiac issues no chest pain or respiratory symptoms. No changes since she was last seen in the office Review of Systems Cardiovascular Cardiovascular: Denies chest pain, Denies chest pain at rest, Denies irregular heart rhythm, Denies dyspnea and Denies dyspnea on exertion Respiratory Respiratory: Reports cough, Denies dyspnea and Denies dyspnea on exertion Gastrointestinal Gastrointestinal: Reports as per HPI Genitourinary Genitourinary: Denies dysuria, Reports urinary incontinence and Denies urinary urgency Endocrine Endocrine: Reports system reviewed and no additional complaints, except as documented Hematologic/Lymphatic Hematologic/Lymphatic: Denies easy bruising and Denies lymphadenopathy [facility] Medical History (Updated 05/22/20 @ 07:24 by Minnie Short MD) Adenomatous polyp of colon Anxiety Arthritis of knee, right Avila esophagus Cancer of left breast (~11/11/18) 11/11/18 DR. SHORT; +ER, +UT 02/21/19; [facility];CHEMO TX EVERY 3 WEEKS FOR 12 WEEKS-kb Cortical cataract of left eye Cortical cataract of right eye Diabetes fs: 120-130 per pt. History of seizure Pt. states when she was recieving chemotherapy (03/2019), upon initial injection she felt a burning sensation in her arm, pt. states she stood up, says her mind went blank. The doctors told pt. she had a chemical reaction, and that she had two seizures, and she was also told that she coded twice during this experience. (Pt. oncologist is Dr. Olivera) Hyperlipidemia Hypertension Hypothyroid Left carotid stenosis Nuclear sclerotic cataract of left eye Nuclear sclerotic cataract of right eye Obesity, Class III, BMI 40-49.9 (morbid obesity) Sleep apnea uses device Squamous cell skin cancer Uterine cancer Ventral hernia Surgical History Biopsy of breast x 5-6; cyst aspirated 1993 section Endometrial Biopsy (~2006) NEG H/O: hysterectomy History of hysterectomy History of hysterectomy S/P left mastectomy (~12/07/18) with sentinel lymph node biopsy Status post cataract extraction and insertion of intraocular lens of left eye (05/30/18) Status post cataract extraction and insertion of intraocular lens of right eye (05/16/18) Status post cataract extraction and insertion of intraocular lens of right eye (05/16/18) Family History Mother Diabetes Essential hypertension Personal history of malignant neoplasm Stomach Heart disease Hyperlipidemia Stroke Father No problems noted. Sister Essential hypertension Hyperlipidemia Asthma Brother Alcohol abuse Essential hypertension Personal history of malignant neoplasm Esophagus Depression Hyperlipidemia Grandfather Personal history of malignant neoplasm Heart disease Asthma Grandfather Heart disease Grandmother Heart disease Grandmother Essential hypertension Heart disease Hyperlipidemia Stroke Brother Diabetes Essential hypertension CHF (congestive heart failure) Heart disease Hyperlipidemia COPD (chronic obstructive pulmonary disease) Asthma Daughter Depression Social History Smoking/Tobacco Use Status: Never Smoking risk assessment performed?: Yes Alcohol Intake: never Drug use: Never Substance use type: does not use 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 Meds Home Medications and Allergies Home Medications Medication Instructions Recorded Confirmed Type Cpap 12/24/12 04/19/20 History cholecalciferol (vitamin D3) 2,000 unit PO DAILY 07/18/15 05/22/20 History [Vitamin D3] magnesium oxide 400 mg PO DAILY 01/21/16 05/22/20 History blood-glucose meter [FreeStyle #1 kit 04/14/17 05/20/20 Rx Lite Meter] Eye Drop Tears 2 drp OPHTHALMIC (EYE) TID-QID PRN 12/01/18 05/22/20 History docusate sodium 100 mg capsule 100 mg PO TID cap 01/24/19 05/22/20 History blood sugar diagnostic #100 strip 04/26/19 05/20/20 Rx ferrous sulfate 140 mg (45 mg 140 mg PO DAILY 04/26/19 05/22/20 History iron) tablet,extended release sertraline 100 mg tablet 100 mg PO DAILY #90 tab-cap 04/26/19 05/22/20 Rx levothyroxine 88 mcg tablet 88 mcg PO DAILY #90 tab-cap 07/25/19 05/22/20 Rx acetaminophen 1,000 mg PO Q8H PRN #90 tab 09/08/19 05/22/20 Rx aspirin [Ecotrin Low Strength] 81 mg PO BID #60 tab-cap 09/08/19 05/22/20 Rx celecoxib 200 mg PO BID PRN #60 cap 09/08/19 05/22/20 Rx gabapentin 300 mg capsule 300 mg PO QHS #14 cap 09/14/19 05/22/20 Rx furosemide 20 mg tablet 20 mg PO DAILY #90 tab-cap 02/23/20 05/22/20 Rx lisinopril 10 mg tablet 10 mg PO DAILY #90 tab-cap 02/23/20 05/22/20 Rx lorazepam 1 mg tablet 1 mg PO HS PRN #20 tab 02/23/20 05/22/20 Rx metformin 500 mg tablet 500 mg PO BID #180 tab-cap 02/23/20 05/22/20 Rx omeprazole 20 mg capsule,delayed 20 mg PO BID #180 tab-cap 02/23/20 05/22/20 Rx release pravastatin 40 mg tablet 40 mg PO QHS #90 tab-cap 02/23/20 05/22/20 Rx Allergies Allergy/AdvReac Type Severity Reaction Status Date / Time adhesive tape Allergy Intermediate blistering Verified 05/22/20 06:50 atorvastatin AdvReac Severe SEVERE LEG Unverified 05/22/20 06:50 PAIN iron AdvReac Severe SEVERE ABD Unverified 05/22/20 06:50 PAIN codeine AdvReac Intermediate H/A Unverified 05/22/20 06:50 morphine AdvReac Nausea Verified 05/22/20 06:50 Exam Const General: healthy appearing and comfortable Resp Effort & Inspection: normal respiratory effort Auscultation: clear to auscultation bilaterally Cardio Rate: regular rate Rhythm: regular rhythm Heart Sounds: no click, no gallops and no murmurs Results Last Vital Signs Temp 97.5 F L 05/22/20 06:41 Pulse 70 05/22/20 06:41 Resp 18 05/22/20 06:41 BP 116/62 05/22/20 06:41 Pulse Ox 95 05/22/20 06:41 COVID-19 Screening Have you, or household traveled for leisure in last 14 days?: No Had IN PERSON contact w/suspected or confirmed C-19 person: No
--- NOTE | 2020-05-22 07:42 | BOWEL_PTH ---
PATIENT: Myesha Santizo LOC: [place] U#:[id number] AGE/SX: 75/F ROOM: RE05/22/[address]: Minnie Bedolla MD : 1945 BED: DIS: 05/22/2020 SPEC #: [id number] RECD: 05/22/20 12:18 STATUS: CELSO REQ #: [id number] TERA: 05/22/20 07:[address]: Minnie Bedolla DEPT: Surgical Specimen RECD BY: Violet Fairchild ENTERED: 05/22/20 12:20 SP TYPE: Bowel OTHR DR: Navid Avendaño MD Tissues: 1 - STOMACH BIOPSY 2 - STOMACH BIOPSY 3 - ESOPHAGUS BIOPSY 4 - BIOPSY BOWEL 5 - BIOPSY BOWEL 6 - BIOPSY BOWEL 7 - BIOPSY BOWEL Procedures: GROSS AND MICRO LEVEL 4 Comments: [id number] ([id number] [facility]#)
[2020-05-22 09:05] VITALS: BP 117/60; PULSE 70; RESP 18; TEMP 36.2; O2SAT 95
== END 2020-05-22 09:33 | disposition home or self-care (01) ==
LOC: SUR 11:45
PROVIDERS: PCP Family Medicine; Visit Provider Surgery
PROC: (CPT 45380; principal; 2020-05-22 07:30)
DX: D50.9 Iron deficiency anemia, unspecified (principal); K31.7 Polyp of stomach and duodenum; K63.5 Polyp of colon; I10 Essential (primary) hypertension; E78.5 Hyperlipidemia, unspecified; E03.9 Hypothyroidism, unspecified; K57.30 Diverticulosis of large intestine without perforation or abscess without bleeding; K20.90 Esophagitis, unspecified without bleeding; K64.8 Other hemorrhoids; K29.70 Gastritis, unspecified, without bleeding
CPT/HCPCS: 45380; 43239; 88305; NC; J2001; J2704

== ENCOUNTER 2020-11-08 08:21 | Outpatient (CLI) | payer OTHER, SELFPAY ==
[2020-11-08 12:34] LABS: Abs Immature Grans 0.02 10^3/uL (0.0-0.06); Absolute Basophil Count 0.03 10^3/uL (0.0-0.2); Absolute Eosinophil Count 0.08 10^3/uL (0.0-0.7); Absolute Lymphocyte Count 1.03 10^3/uL (1.2-3.4); Absolute Monocyte Count 0.49 10^3/uL (0.1-0.8); Absolute Neutrophil Count 5.02 10^3/uL (1.2-6.7); Basophils % 0.4; Eosinophils % 1.2; HCT 33.7 % (36.0-46.0); HGB 10.5 g/dL (11.2-15.7); Immature Grans % 0.3; Lymphocytes % 15.4; MCH 27.4 pg (27.0-33.0); MCHC 31.2 % (32.0-36.0); MPV 10.4 fL (8.0-11.0); Monocytes % 7.3; Neutrophils % 75.4; Nucleated RBC 0 %; Platelet Count 197 10^3/uL (130-400); RBC 3.83 10^6/uL (3.93-5.22); RDW 14.7 % (11.7-14.6); RDW-SD 47.5 fL; WBC 6.67 10^3/uL (4.4-10.8)
[2020-11-08 13:08] LABS: ALT 26 U/L (14-59); AST 13 U/L (15-37); Albumin 3.8 g/dL (3.4-5.0); Alkaline Phosphatase 105 U/L (46-116); Anion Gap 10.5 mmol/L (3-11); BUN 22 mg/dL (7-18); Bilirubin, Total 0.3 mg/dL (0.2-1.0); CO2 27.5 mmol/L (21.0-32.0); CREATININE 1.4 mg/dL (0.55-1.02); Calcium 9.1 mg/dL (8.5-10.1); Chloride 104 mmol/L (98-107); Estimated GFR 36.76 (mL/min/1.73m2); Ferritin 38 ng/mL (8-252); Glucose 97 mg/dL (74-106); Potassium 4.3 mmol/L (3.5-5.1); Sodium 142 mmol/L (136-145); Total Protein 7.6 g/dL (6.4-8.2)
== END 2020-11-08 08:22 | disposition home or self-care (01) ==
LOC: LBO 08:25
PROVIDERS: PCP Family Medicine; Visit Provider Internal Medicine
DX: C50.912 Malignant neoplasm of unspecified site of left female breast (principal); D64.9 Anemia, unspecified
CPT/HCPCS: 36415; 80053; 82728; 85025

== ENCOUNTER 2020-12-11 13:27 | Outpatient (REF) | payer OTHER, SELFPAY | END 2020-12-11 13:28 | disposition home or self-care (01) | LOC: LBN 13:27 | PROVIDERS: PCP Family Medicine; Visit Provider Family Medicine | DX: E11.9 Type 2 diabetes mellitus without complications (principal) | CPT/HCPCS: 83036 ==

== ENCOUNTER 2021-02-04 03:51 | Outpatient (CLI) | payer OTHER, SELFPAY ==
[2021-02-04 10:31] LABS: Abs Immature Grans 0.04 10^3/uL (0.0-0.06); Absolute Basophil Count 0.02 10^3/uL (0.0-0.2); Absolute Eosinophil Count 0.11 10^3/uL (0.0-0.7); Absolute Lymphocyte Count 0.95 10^3/uL (1.2-3.4); Absolute Monocyte Count 0.53 10^3/uL (0.1-0.8); Absolute Neutrophil Count 4.39 10^3/uL (1.2-6.7); Basophils % 0.3; Eosinophils % 1.8; HCT 33.4 % (36.0-46.0); HGB 10.5 g/dL (11.2-15.7); Immature Grans % 0.7; Lymphocytes % 15.7; MCH 27.6 pg (27.0-33.0); MCHC 31.4 % (32.0-36.0); MCV 87.7 fL (80-95); Monocytes % 8.8; Neutrophils % 72.7; Nucleated RBC 0 %; Platelet Count 162 10^3/uL (130-400); RBC 3.81 10^6/uL (3.93-5.22); RDW 15.5 % (11.7-14.6); RDW-SD 49.6 fL; WBC 6.04 10^3/uL (4.4-10.8)
[2021-02-04 11:34] LABS: ALT 25 U/L (14-59); AST 14 U/L (15-37); Albumin 3.7 g/dL (3.4-5.0); Alkaline Phosphatase 101 U/L (46-116); Anion Gap 10.8 mmol/L (3-11); BUN 20 mg/dL (7-18); CO2 27.2 mmol/L (21.0-32.0); CREATININE 1.5 mg/dL (0.55-1.02); Calcium 8.8 mg/dL (8.5-10.1); Chloride 104 mmol/L (98-107); Estimated GFR 33.94 (mL/min/1.73m2); Ferritin 215 ng/mL (8-252); Glucose 121 mg/dL (74-106); Potassium 4.3 mmol/L (3.5-5.1); Sodium 142 mmol/L (136-145); Total Protein 6.9 g/dL (6.4-8.2)
[2021-02-04 11:52] LABS: Bilirubin, Total 0.2 mg/dL (0.2-1.0)
== END 2021-02-04 03:52 | disposition home or self-care (01) ==
LOC: LBO 03:52
PROVIDERS: PCP Family Medicine; Visit Provider Internal Medicine
DX: D64.9 Anemia, unspecified (principal); C50.912 Malignant neoplasm of unspecified site of left female breast
CPT/HCPCS: 36415; 80053; 82728; 85025

== ENCOUNTER 2021-02-20 01:13 | Outpatient (CLI) | payer OTHER, SELFPAY ==
--- NOTE | 2021-02-20 | DI.MAMMO_ITS ---
Exam(s) MG MAMMO SCREENING 60 MIN DUR EXAM: MG MAMMO SCREENING 60 MIN DUR CLINICAL HISTORY: PERSONAL H/O BREAST CA, SCREENING, Z12.31. TECHNIQUE: Bilateral full field digital CC and MLO mammographic images were obtained with 3D tomosyn thesis and utilizing computer aided detection (CAD). COMPARISON: Prior mammograms dating back to 2010, the most recent being December 2019. This patient underwent left mastectomy in 2018 FINDINGS: Glandular tissue in the anterior aspect of the breast is again noted be moderately dense. Benign micro and macro calcification in the right breast are again noted. There are no new malignant- appearing microcalcification groups in the right breast. No new obvious spiculated masses. Some architectural distortion in the mid aspect of the right breast is unchanged from prior studies. There is no significant architectural distortion nor skin thickening-retraction. IMPRESSION: Stable benign-appearing right breast findings. BI-RADS Category 2 - Benign Findings Breast Density - Category C - Heterogeneously dense Breast density Category C or D implies that the patient has dense breast tissue. Dense breast tissue can make it harder to find cancer on a mammogram. Dense breast tissue is also associated with an incr eased risk of breast cancer. This information about the result of the mammogram report was provided to the patient to raise their awareness. Use this report when you speak with the patient about their risks for breast cancer, which includes their family history. At that time, you may recommend additional screening tests (Ultrasoun d or MRI) as these tests may add significant information. A negative radiographic report should not delay biopsy if a dominant or clinically suspicious mass is present. Up to ten percent of cancers are not identified on mammography. A negative report may reinforce clinical impression. Adenosis and dense breasts may obscure an underlying neoplasm. False positive reports average 6 to 10%. Patient will receive a letter notifying them of these results.
== END 2021-02-20 01:33 ==
PROVIDERS: PCP Family Medicine; Visit Provider Radiology Radiation Oncology
DX: Z12.31 Encounter for screening mammogram for malignant neoplasm of breast (principal); Z85.3 Personal history of malignant neoplasm of breast; Z90.12 Acquired absence of left breast and nipple
CPT/HCPCS: 77063; 77067

== ENCOUNTER → 2021-03-06 10:10 | Outpatient (BNVA) | payer OTHER, SELFPAY | PROVIDERS: PCP Family Medicine; Referring Provider Family Medicine; Visit Provider Nurse Practitioner Adult Health | DX: G56.01 Carpal tunnel syndrome, right upper limb (principal); E11.9 Type 2 diabetes mellitus without complications; I10 Essential (primary) hypertension | CPT/HCPCS: 95908; 99203; 99214 ==

== ENCOUNTER → 2021-04-21 10:19 | Outpatient (BNVA) | payer OTHER, SELFPAY | PROVIDERS: PCP Family Medicine; Referring Provider Family Medicine; Visit Provider Student in an Organized Health Care Education/Training Program | DX: G56.01 Carpal tunnel syndrome, right upper limb (principal); E11.42 Type 2 diabetes mellitus with diabetic polyneuropathy ==

== ENCOUNTER 2021-05-12 03:22 | Outpatient (CLI) | payer OTHER, SELFPAY ==
--- OUTSIDE RECORDS SUMMARY | 2021-05-12 03:23 | XMS_ITS ---
:1945 Author Care Team Providers Name Role Phone CELIA CAICEDO MD Primary Care Provider [phone] LUCERO ALBARADO DO [employer] [phone] [facility] OTHER [phone] Allergies Code Code System Name Reaction Severity Status Onset 2670 RxNorm Codeine ? ? Active ? 6387 RxNorm Lidocaine ? ? Active ? Medications Name Status Start Date Stop Date ? ? Bactroban 2 % topical cream Active ? Not available APPLY A SMALL AMOUNT TO THE AFFECTED AR EA BY TOPICAL ROUTE 3 TIMES PER DAY FOR 10 DAYS Centrum Silver Active ? Not available 1 tab daily Ecotrin Low Strength Completed ? 06/10/2020 81mg daily Efudex 5 % topical cream Completed ? 018 APPLY A SUFFICIENT AMOUNT TO COVER THE LESIONS IN THE AFFECTED AREA(S) BY TOPICAL ROUTE 2 TIMES PER DAY gabapentin 300 mg capsule Active ? Not av ailable Take 1 capsule every day by oral route at bedtime. Glucosamine Chondroitin Completed ? 02/19/20 18 2tabs BID ibuprofen Active ? Not available 200mg tabs- 2tabs PRN levothyroxine Active ? Not available 75mcg daily lisinopril Active ? Not available 10mg daily metformin Active ? Not available 500mg BID omeprazole Active ? Not available 20mg BID pravastatin Active ? Not available 40mg at bedtime ropinirole 0.25 mg tablet Completed ? 2017 take 1 PO 2-3 hours before bedtime for one week then increase to two tablets for one week ropinirole 1 mg tablet Completed ? 9 take 1 PO 2-3 hous before bedtime ropinirole 2 mg tablet Completed ? 0 Take 1 PO 2-3 hours before bedtime sertraline Active ? Not available 50mg daily Tylenol Extra Strength Active ? Not avail able 500mg tabs- 1 tab PRN Vitamin D3 Active ? Not available 400units daily vitamin E Active ? Not available 400units daily Problems Name Status Onset Date Source ? Polyp of Colon Active 02/07/2018 ? Squamous Cell Carcinoma Active 02/07/2018 ? Hypothyroidism Active 02/07/2018 ? Diabetes Mellitus Active 02/07/2018 ? Hyperlipidemia Active 02/07/2018 ? Obesity Active 02/07/2018 ? Depressive Disorder Active 02/07/2018 ? Obstructive Sleep Apnea Syndrome Active 02/07/2018 ? Hypertensive Disorder Active 02/07/2018 ? Avila's Esophagus Active 02/07/2018 ? Shoulder Pain Active 02/07/2018 ? 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 Malignant Tumor of Breast Active 03/10/2019 ? Procedures None recorded. Results Lab Results None recorded. Past Encounters 06/10/2020 Obstructive Sleep Apnea Syndrome; Period ic Limb Movement Disorder Rabia [place] HOME CARE PHYSICAL THERAPIST: [address] [place] [id number], Ph. Social History Tobacco Smoking Status Never Smoker Vaccine List None recorded. Plan of Care Reminders Provider Appointments None ? ? recorded. Lab None ? ? recorded. Referral None ? ? recorded. Procedures None ? ? recorded. Surgeries None ? ? recorded. Imaging None ? ? recorded. Vitals 06/10/2020 11:30AM Office 30 Weight 106.59 kg 03/10/2019 08:30AM Office 30 Height Weight BMI Blood Pressure 153.04 cm 106.59 kg 45.5 kg/m2 125/62 mm[Hg] 04/27/2018 11:30AM Office 30 Height Weight BMI Blood Pressure 153.04 cm 105.23 kg 44.9 kg/m2 128/83 mm[Hg] 02/18/2018 09:00AM New Patient 46 Height Weight BMI Blood Pressure 153.04 cm 105.1 kg 44.9 kg/m2 140/72 mm[Hg]
[2021-05-12 11:43] LABS: Source Nasal/Nares
[2021-05-12 16:04] LABS: COVID-19 PCR Negative (Negative)
== END 2021-05-12 03:23 | disposition home or self-care (01) ==
LOC: LBO 03:22
PROVIDERS: PCP Family Medicine; Visit Provider Student in an Organized Health Care Education/Training Program
DX: Z20.822 Contact with and (suspected) exposure to COVID-19 (principal); Z01.818 Encounter for other preprocedural examination
CPT/HCPCS: 87635

== ENCOUNTER 2021-05-14 07:00 | Day surgery (SDC) | payer OTHER, SELFPAY ==
--- NOTE | 2021-05-14 06:48 | W.PM.DSUDISC ---
Discharge Plan Disposition Patient Disposition: HOME Condition: Good Discharge Details Reason For Visit: Right ECTR Attending Provider: Andres Knight Primary Care Provider: Navid Avendaño Home Meds and New Rx's Prescriptions: Continued docusate sodium 100 mg capsule 100 mg PO DAILY RF: 0 gabapentin 300 mg capsule 300 mg PO QHS Qty: 90 RF: 3 (DME) FreeStyle Lite Strips Strip 1 strip Miscellaneous DAILY Qty: 100 RF: 4 omeprazole 20 mg capsule,delayed release(DR/EC) 20 mg PO BID Qty: 180 RF: 4 lorazepam 1 mg tablet 1 mg PO HS PRN (Reason: insomnia) Qty: 20 RF: 0 letrozole 2.5 mg tablet 2.5 mg PO DAILY RF: 0 lisinopril 10 mg tablet 10 mg PO DAILY Qty: 90 RF: 4 furosemide 20 mg tablet 20 mg PO DAILY Qty: 90 RF: 3 pravastatin 40 mg tablet 40 mg PO QHS Qty: 90 RF: 4 metformin 500 mg tablet 500 mg PO BID Qty: 180 RF: 4 acetaminophen [Tylenol Arthritis Pain] 650 mg tablet extended release 650 mg PO Q12H RF: 0 ropinirole 1 mg tablet 2 mg PO QHS RF: 0 aspirin [Ecotrin Low Strength] 81 mg tablet,delayed release (DR/EC) 81 mg PO .QOD RF: 0 Centrum Silver 0.4-300-250 mg-mcg-mcg tablet 1 tab PO DAILY RF: 0 hxdnarh-kguagkwxn-uozn Tablet 1 tab PO .COMPLEX RF: 0 vitamin E 200 unit capsule 400 unit PO DAILY RF: 0 ferrous sulfate [Slow Release Iron] 140 mg (45 mg iron) tablet extended release 40 mg PO DAILY RF: 0 ibuprofen 200 mg capsule 400 mg PO Q6H PRNRF: 0 CPAP RF: 0 cholecalciferol (vitamin D3) [Vitamin D3] 2,000 UNIT capsule 2,000 unit PO DAILY RF: 0 (DME) blood-glucose meter [FreeStyle Lite Meter] 1 EACH kit 1 ea Miscellaneous DAILY Qty: 1 RF: 0 sertraline 100 mg tablet 100 mg PO DAILY Qty: 90 RF: 4 levothyroxine 88 mcg tablet 88 mcg PO DAILY Qty: 90 RF: 4 Eye Drop Tears 1-0.2-0.2 % Drops 2 drp OPHTHALMIC (EYE) TID-QID PRNRF: 0 Discharge Instructions Stand Alone Forms: Eugene Strong Tunnel Release Referrals: Andres Knight MD [ [facility] STAFF PHYSICIAN] - Activity:: Activity as Tolerated Remove Dressings/Wound Care:: 72 hours Shower/Bathe:: 72 hours Diet:: As Tolerated Discharge Orders Discharge Orders: Discharge Order (Routine); Ordered 05/14/21 Ordered By: Annita Carrizales DS: Diagnosis Discharge Diagnosis (1) Right carpal tunnel syndrome: Status: Acute
[2021-05-14 07:38] VITALS: BP 145/63; PULSE 78; RESP 16; TEMP 36.9; O2SAT 94
[2021-05-14] MEDS: Lactated Ringers 1,000 ML 80 ML IV (08:11)
--- NOTE | 2021-05-14 08:58 | ANES.PREOP_ITS ---
General Info Date of Service Date Performed: 05/14/21 Height: 5 ft Weight: 104 kg Body Mass Index (BMI): 44.7 Surgical Procedure: Operation Date: 05/14/21 09:55 Proposed Procedures Side Surgeon p Wrist ECTR,DEQUERVAINS INJECTION Right Andres Knight MD Pre-Op Diagnosis Post-Op Diagnosis Right ECTR, Dequervains Injection Meds Allergies and Home Medications Allergies Allergy/AdvReac Type Severity Reaction Status Date / Time adhesive tape Allergy Intermediate blistering Verified 05/14/21 07:16 atorvastatin AdvReac Severe SEVERE LEG Unverified 05/14/21 07:16 PAIN iron AdvReac Severe SEVERE ABD Unverified 05/14/21 07:16 PAIN codeine AdvReac Intermediate H/A Unverified 05/14/21 07:16 morphine AdvReac Nausea Verified 05/14/21 07:16 Home Medication Medication Instructions Recorded Cpap 12/24/12 cholecalciferol (vitamin D3) 2,000 unit PO DAILY 07/18/15 [Vitamin D3] blood-glucose meter [FreeStyle #1 kit 04/14/17 Lite Meter] Eye Drop Tears 2 drp OPHTHALMIC (EYE) TID-QID PRN 12/01/18 blood sugar diagnostic #100 strip 04/26/19 lorazepam 1 mg tablet 1 mg PO HS PRN #20 tab 02/23/20 omeprazole 20 mg capsule,delayed 20 mg PO BID #180 tab-cap 02/23/20 release sertraline 100 mg tablet 100 mg PO DAILY #90 tab-cap 06/21/20 levothyroxine 88 mcg tablet 88 mcg PO DAILY #90 tab-cap 09/10/20 docusate sodium 100 mg capsule 100 mg PO DAILY cap 12/11/20 furosemide 20 mg tablet 20 mg PO DAILY #90 tab-cap 12/11/20 letrozole 2.5 mg tablet 2.5 mg PO DAILY 12/11/20 lisinopril 10 mg tablet 10 mg PO DAILY #90 tab-cap 12/11/20 metformin 500 mg tablet 500 mg PO BID #180 tab-cap 12/11/20 pravastatin 40 mg tablet 40 mg PO QHS #90 tab-cap 12/11/20 acetaminophen 650 mg 650 mg PO Q12H 03/06/21 tablet,extended release aspirin 81 mg tablet,delayed 81 mg PO .QOD tab-cap 03/06/21 release jvsqmsi-samiyemam-whih tablet 1 tab PO .COMPLEX tab 03/06/21 ferrous sulfate 140 mg (45 mg 40 mg PO DAILY tab 03/06/21 iron) tablet,extended release ibuprofen 200 mg capsule 400 mg PO Q6H PRN cap 03/06/21 jpsrjixz-trm-glgwn acid 0.4 1 tab PO DAILY 03/06/21 mg-lycopene 300 mcg-lutein 250 mcg tablet ropinirole 1 mg tablet 2 mg PO QHS tab 03/06/21 vitamin E 200 unit capsule 400 unit PO DAILY cap 03/06/21 gabapentin 300 mg capsule 300 mg PO QHS #90 cap 04/23/21 Current Visit Medications: Current Medications Generic Name Dose Route Start Last Admin Trade Name Freq PRN Reason Stop Dose Admin Acetaminophen 650 mg 05/14/21 06:46 Acetaminophen 325 Mg Tab PO Q4H PRN PRN Ringer's Solution 1,000 mls @ 80 mls/hr 05/14/21 06:00 05/14/21 08:11 IV 06/03/21 23:59 80 mls/hr INFUSION PETTY Administration Cefazolin Sodium 2,000 mg/ 100 mls @ 200 mls/hr 05/14/21 06:00 Sodium Chloride IVPB 05/14/21 16:00 PREOP PETTY Ondansetron HCl 4 mg/ Sodium 52 mls @ 200 mls/hr 05/14/21 06:46 Chloride IVPB Q6H PRN PRN IV Miscellaneous Supplies 1 each 05/14/21 06:00 Iv Access IV 06/03/21 23:59 DIRECTED PETTY Oxycodone/Acetaminophen 1 tab 05/14/21 06:46 Oxycodone 5 Mg/Acetaminophen 325 Mg Tab PO Q4H PRN PRN Pain Sodium Chloride 0 ml 05/14/21 06:00 Normal Saline Flush 10 Ml Syr IV 06/03/21 23:59 PRN PRN Sodium Chloride 0 ml 05/14/21 06:00 Normal Saline 10 Ml Vial IJ 06/03/21 23:59 DIRECTED PRN Sterile Water 0 ml 05/14/21 06:00 Water,Injection,Sterile 10 Ml Vial IJ 06/03/21 23:59 DIRECTED PRN PFSH Active Problems Active Problems: Problem Status Onset Code Actinic keratosis 01/28/15 L57.0 Anemia 05/03/14 D64.9 Barretts esophagus K22.70 Depressive disorder F32.9 Diabetes mellitus 12/30/12 E11.9 Diverticulitis of colon 06/03/03 K57.32 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 Essential hypertension 04/28/13 I10 Hyperlipidemia E78.5 Hypothyroidism E03.9 Low back pain M54.5 Obesity E66.9 Obstructive sleep apnea syndrome G47.33 Polyp of colon 06/03/03 K63.5 Restless legs 09/28/13 G25.81 Squamous cell carcinoma of other specified sites of skin C44.92 Ventral hernia K43.9 Knee pain 10/20/13 M25.569 Primary osteoarthritis of both knees M17.0 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 Status post breast biopsy Z98.890 History of gynecological procedure Z98.890 History of section Z98.891 Hypertension I10 Abdominal pain R10.9 Syncope R55 Osteoarthritis of right knee M17.11 Cyst of skin L72.9 Hand arthritis M19.049 Dysuria R30.0 Positive LATRELL (antinuclear antibody) R76.8 Iron deficiency anemia D50.9 Hyperplastic colon polyp K63.5 Bilateral hand pain M79.641, M79.642 De Quervain's tenosynovitis, right M65.4 Right carpal tunnel syndrome G56.01 Arthritis of knee, right M17.11 S/P left mastectomy ~12/07/18 Z90.12 Cancer of left breast ~11/11/18 C50.912 Status post cataract extraction and insertion of intraocular lens of right eye 05/16/18 Z98.41, Z96.1 Status post cataract extraction and insertion of intraocular lens of left eye 05/30/18 Z98.42, Z96.1 Medical History Medical History Adenomatous polyp of colon Anxiety Arthritis of knee, right Avila esophagus Cancer of left breast (~11/11/18) 11/11/18 DR. SHORT; +ER, +MS 02/21/19; [facility] [place];CHEMO TX EVERY 3 WEEKS FOR 12 WEEKS-kb Cortical cataract of left eye Cortical cataract of right eye Diabetes fs: 120-130 per pt. History of seizure Pt. states when she was recieving chemotherapy (03/2019), upon initial injection she felt a burning sensation in her arm, pt. states she stood up, says her mind went blank. The doctors told pt. she had a chemical reaction, and that she had two seizures, and she was also told that she coded twice during this experience. (Pt. oncologist is Dr. Olivera) 05/13/21: Per pt. has not had any seizure activity since Hyperlipidemia Hypertension Hypothyroid Left carotid stenosis Nuclear sclerotic cataract of left eye Nuclear sclerotic cataract of right eye Obesity, Class III, BMI 40-49.9 (morbid obesity) Right carpal tunnel syndrome Sleep apnea uses device Squamous cell skin cancer Uterine cancer Per pt. states she is remission at this time. Ventral hernia Surgical History Surgical History Biopsy of breast x 5-6; cyst aspirated 1993 section Endometrial Biopsy (~2006) NEG H/O: hysterectomy History of hysterectomy History of hysterectomy S/P left mastectomy (~12/07/18) with sentinel lymph node biopsy Status post cataract extraction and insertion of intraocular lens of left eye (05/30/18) Status post cataract extraction and insertion of intraocular lens of right eye (05/16/18) Status post cataract extraction and insertion of intraocular lens of right eye (05/16/18) Tobacco Smoking/Tobacco Use Status: Never Alcohol Alcohol Intake: never Substance Use Substance use: Never Substance use type: does not use Vital Signs and Lab Results Vital Signs Most Recent Vital Signs in EMR: Most Recent Vital Signs Temp Pulse Resp BP Pulse Ox 36.9 C 78 16 145/63 H 94 05/14/21 07:38 05/14/21 07:38 05/14/21 07:38 05/14/21 07:38 05/14/21 07:38 Point of Care Results Point of Care Results: Finger Stick Blood Glucose 140 05/14/21 07:54 Lab Results Blood Type / Crossmatch: No Data to Display Complete Blood Count: No Data to Display Complete Metabolic Panel: Hemoglobin A1c 6.3 % (4.5-5.7) H 04/23/21 10:42 04/23/21 Liver Function Panel: No Data to Display Coagulation Panel: No Data to Display Cardiac Panel: No Data to Display Arterial Blood Gas: No Data to Display Venous Blood Gas: No Data to Display Pancreas Panel: No Data to Display Thyroid Panel: No Data to Display Infectious Disease: Coronavirus (COVID-19)(PCR) Negative (Negative) 05/12/21 11:20 05/12/21 Coronavirus 2019 Source Nasal/Nares 05/12/21 11:20 05/12/21 Blood Cultures: No Data to Display Toxicology Panel: No Data to Display Anesthesia Assessment and Plan Anesthesia History Personal History: No History of Anesthesia Complications Family History: No Family History of Anesthesia Complications Exercise Tolerance Exercise Tolerance: Metabolic Equivalents>4 Pertinent Negatives Pertinent Negatives: No Major Cardiovascular Symptoms or Complaints Cardiac & Pulmonary Exam Cardiac Exam: Normal S1/S2 Heart Sounds Pulmonary Exam: Clear Bilateral Breath Sounds Implantable Cardiac Device Does patient have a Pacemaker or an ICD?: No Airway Exam Known Difficult Airway: No Mallampati Class: 4 Mouth Opening: Normal (> 3cm) Thyromental Distance: Greater than 3 cm Neck Range of Motion: Limited ROM Neck Circumference: Thick Teeth Condition: Normal Dentition (Most teeth on bottom loose) and Removable Dentures/Plates Upper ASA Classification ASA Score: ASA 3 Emergency Case?: No NPO Status NPO Status: NPO Clears >2 hours, Solids >8 hours Anesthesia Plan Resuscitation Status: Full Code Anesthesia Technique: General Anesthesia Airway Planned: Natural Airway Monitors Used: Standard Monitors
[2021-05-14 09:01] VITALS: BMI 44.7
[2021-05-14] MEDS: ceFAZolin 2,000 MG in Normal Saline 100 ML 200 MG IVPB (09:56)
[2021-05-14] MEDS: methylPREDNISolone ACETATE 80 MG/ML VIAL (10:01)
[2021-05-14] MEDS: Bupivacaine 0.25% Pres-Free 10 ML VIAL (10:02)
[2021-05-14] MEDS: Sodium Bicarbonate 50 MEQ/50 ML VIAL (10:03)
[2021-05-14 10:16] VITALS: BP 142/63; PULSE 81; RESP 16; TEMP 36; O2SAT 97
--- NOTE | 2021-05-14 10:19 | W.ANESPOSTOP ---
Postoperative Evaluation Date, Time and Location Date Performed: 05/14/21 Time Performed: 10:19 Patient Location: Day Surgery Unit Vital Signs Most Recent Imported Vital Signs: Most Recent Vital Signs Temp Pulse Resp BP Pulse Ox 36.9 C 78 16 145/63 H 94 05/14/21 07:38 05/14/21 07:38 05/14/21 07:38 05/14/21 07:38 05/14/21 07:38 Most Recent Manually Entered Vital Signs: Adult Blood Pressure: 142/63 Heart Rate: 78 Respirations: 10 Oxygen Saturation (%): 96 Temperature (C): 36.0 C Pain Score (0-10 Scale): 0 Pain Score Most Recent Pain Score: Most Recent Pain Score Pain Level 0 05/14/21 07:38 Assessment Mental Status: Awake (Alert & Oriented to Patient Baseline) Airway and Respiratory Function: Patent airway with normal (patient baseline) respiratory exam Cardiovascular Function: Hemodynamically Stable Hydration Status: Adequately Hydrated Nausea & Vomiting: No Nausea or Vomiting Pain: Pt. Denies Any Pain Peripheral Nerve Block: Patient did not receive a nerve block Teaching Patient Teaching: Discussed Safe Use of Pain Medication Given Recent Anesthesia and Discussed Safe Use of Pain Medication Given Likely or Known LUAN
[2021-05-14 10:20] VITALS: BP 142/63; PULSE 78; RESP 10; TEMPC 36; O2SAT 96
[2021-05-14 10:46] VITALS: BP 149/67; PULSE 73; RESP 16; TEMP 36.5; O2SAT 95
--- NOTE | 2021-05-14 13:33 | W.PM.OP ---
Date of service: 05/14/21 Time of Service: 09:45 Operative Note Operative Note DATE OF PROCEDURE: 05/14/21 PRE-OP DIAGNOSIS: Right Carpal Tunnel Syndrome, Right Thumb CMC Arthritis POST-OP DIAGNOSIS: same PROCEDURE: Right Endoscopic Carpal Tunnel Release, Right Thumb CMC Injection SURGEON: Andres Knight ANESTHESIA TYPE: General:No Airway Refer to Anesthesia Record ESTIMATED BLOOD LOSS: 0 PATHOLOGY: none sent TOURNIQUET TIME: 6 COMPLICATIONS: None Patient was transported to: same day Patient's condition: stable Indications: I have seen Myesha in clinic for symptoms of carpal tunnel syndrome. The numbness, tingling, and pain limited function. Clinical exam findings with nerve conduction tests confirmed the diagnosis of carpal tunnel syndrome. Nonoperative measures such as bracing, time, activity modifications had been tried but disability and pain persisted. She also has had some persistent pain at the base of the thumb which was thought to be either DeQuervain's tenosynovitis or thumb CMC arthritis. Her pain today is clearly at the base of the thumb and worsened with grind testing, indicating that the arthritis is the primary culprit. I discussed carpal tunnel release with the patient as well as a thumb CMC injection. I reviewed the risks of the procedure to include, but not limited to, bleeding, infection, pain, stiffness, incomplete release, damage to nerves or vessels, persistent numbness, recurrence. Despite these risks, the patient elected to proceed. Findings: There was tightened carpal tunnel. This was dilated and released successfully with the endoscopic with increased space within the tunnel. The antebrachial fascia was released proximally freeing the median nerve at the wrist. Procedure Description: Myesha was greeted in the preoperative holding area where the correct side was identified and marked. The consent was reviewed with the patient and signed. The history and physical was updated. All questions were answered. She was taken back to the operating room. The patient was placed into the supine position on the operating room table with the right arm on an arm board. A nonsterile tourniquet was placed high onto the arm. All bony prominences were well padded. Prophylactic antibiotics in the form of Cefazolin were administered. The right arm was then prepped with Chloraprep and draped in a standard fashion with stockinette and extremity drape. A timeout to confirm correct identity, side and site, procedure, allergies, anesthesia, and medical concerns was performed. The proximal-radial border of the first metacarpal was identified and this soft spot was marked. The 1st CMC joint was entered without difficulty and the injection, consisting of 2cc of 0.5% Bupivicaine and 40mg of DepoMedrol, was injected with minimal resistance. Turning to the carpal tunnel, the surgical site was marked in the volar wrist creases in line with the radial border of the fourth ray. This area was anesthetized with approximately 6cc of 1% Lidocaine. The limb was then exsanguinated with an Esmarch. The skin was incised with a 15 blade, approximately 1cm. The skin only was cut and the deeper tissue was dissected bluntly with a tenotomy scissor, avoiding passing nerve and venous structures. The fascia was penetrated and opened bluntly. A two-prong skin hook was placed under this proximal fascial edge. A series of hamate finders were used to identify and dilate the carpal tunnel. Synovial elevator was used to free synovial attachments to the underside of the transverse carpal ligament. My thumb was kept in the palm to aysha the distal extent of the carpal tunnel and correctly position the hand. The Microaire endoscope was inserted without difficulty and without resistance. Excellent visualization showed horizontally running fibers of the transverse carpal ligament (TCL). The distal extent of the TCL was visualized and the end of the scope palpated with the thumb. The blade was elevated and withdrawn from distal to proximal. The TCL was split into two flaps. The endoscope was reinserted to confirm complete release and any remnant ligament was incised. The scope was withdrawn and the proximal aspect of the carpal tunnel was grossly inspected and appeared release with the median nerve visible. The antebrachial fascia at the level of the wrist was then freed from the overlying skin and then the underlying median nerve with blunt dissection. This was transected longitudinally for about 3cm proximal to the wrist incision. The wound was then irrigated with easy flow of irrigant distally and proximally. The incision was closed with a single 4-0 Nylon suture. The wound was dressed with Xeroform, Gauze, Kerlix and Vega. The tourniquet was deflated with the initial dressing and held with some pressure. Blood flow returned easily to all digits with capillary refill less than 2 seconds. The patient tolerated the procedure well and was returned to the Same Day Surgery area in a stable condition suffering no known complication.
== END 2021-05-14 11:22 | disposition home or self-care (01) ==
LOC: SUR 07:02
PROVIDERS: PCP Family Medicine; Visit Provider Student in an Organized Health Care Education/Training Program
PROC: 01N54ZZ Release Median Nerve, Percutaneous Endoscopic Approach (ICD-10-PCS; CPT 29848; principal; 2021-05-14 09:45)
DX: G56.01 Carpal tunnel syndrome, right upper limb (principal); M18.11 Unilateral primary osteoarthritis of first carpometacarpal joint, right hand; E11.9 Type 2 diabetes mellitus without complications; I10 Essential (primary) hypertension; E78.5 Hyperlipidemia, unspecified; E66.9 Obesity, unspecified; Z68.41 Body mass index [BMI] 40.0-44.9, adult
CPT/HCPCS: 29848; 20600; J0690; J1040; J2250

== ENCOUNTER 2021-08-20 02:41 | Outpatient (CLI) | payer OTHER, SELFPAY ==
[2021-08-20 13:49] LABS: Abs Immature Grans 0.03 10^3/uL (0.0-0.06); Absolute Basophil Count 0.03 10^3/uL (0.0-0.2); Absolute Eosinophil Count 0.11 10^3/uL (0.0-0.7); Absolute Lymphocyte Count 1.13 10^3/uL (1.2-3.4); Absolute Monocyte Count 0.47 10^3/uL (0.1-0.8); Absolute Neutrophil Count 4.44 10^3/uL (1.2-6.7); Basophils % 0.5; Eosinophils % 1.8; HCT 35.6 % (36.0-46.0); HGB 11.4 g/dL (11.2-15.7); Immature Grans % 0.5; Lymphocytes % 18.2; MCH 28.6 pg (27.0-33.0); MCV 89.2 fL (80-95); MPV 10.6 fL (8.0-11.0); Monocytes % 7.6; Neutrophils % 71.4; Nucleated RBC 0 %; Platelet Count 177 10^3/uL (130-400); RBC 3.99 10^6/uL (3.93-5.22); RDW-SD 45.5 fL; WBC 6.21 10^3/uL (4.4-10.8)
[2021-08-20 13:57] LABS: ALT 31 U/L (14-59); AST 21 U/L (15-37); Albumin 3.6 g/dL (3.4-5.0); Alkaline Phosphatase 101 U/L (46-116); Anion Gap 7.9 mmol/L (3-11); BUN 21 mg/dL (7-18); Bilirubin, Total 0.2 mg/dL (0.2-1.0); CO2 28.1 mmol/L (21.0-32.0); CREATININE 1.3 mg/dL (0.55-1.02); Calcium 8.9 mg/dL (8.5-10.1); Chloride 102 mmol/L (98-107); Estimated GFR 39.93 (mL/min/1.73m2); Glucose 107 mg/dL (74-106); Potassium 4.1 mmol/L (3.5-5.1); Sodium 138 mmol/L (136-145); Total Protein 7.4 g/dL (6.4-8.2)
[2021-08-20 23:17] LABS: Ferritin 108 ng/mL (10-291)
== END 2021-08-20 02:42 | disposition home or self-care (01) ==
LOC: LBO 02:41
PROVIDERS: Nurse Practitioner Adult Health; PCP Family Medicine; Visit Provider Internal Medicine
DX: C50.912 Malignant neoplasm of unspecified site of left female breast (principal); D50.9 Iron deficiency anemia, unspecified
CPT/HCPCS: 36415; 80053; 82728; 85025

== ENCOUNTER 2021-12-03 18:24 | Outpatient (REF) | payer OTHER, SELFPAY ==
[2021-12-03 21:57] LABS: Bilirubin Negative (Negative); Blood Large (Negative); Clarity Cloudy (Clear); Glucose 250 mg/dL (Negative); Ketones Negative (Negative); Leukocyte Esterase Small (Negative); Nitrite Positive (Negative); Specific Gravity 1.025 (1.005-1.025); Urobilinogen 0.2 EU/dL (Up TO 0.2)
[2021-12-03 22:57] LABS: RBC >50 HPF (0-2)
[2021-12-03 22:58] LABS: C & S Indicated? Yes
== END 2021-12-03 18:25 | disposition home or self-care (01) ==
LOC: LBN 18:24
PROVIDERS: PCP Family Medicine; Visit Provider Nurse Practitioner Family
DX: R39.89 Other symptoms and signs involving the genitourinary system (principal)
CPT/HCPCS: 87077; 81003; 81015; 87086; 87186

== ENCOUNTER → 2022-02-25 01:21 | Outpatient (CLI) | payer OTHER, SELFPAY ==
--- NOTE | 2022-02-25 11:20 | DI.MAMMO_ITS ---
Exam(s) MG MAMMO SCREENING 60 MIN DUR EXAM: MG MAMMO SCREENING 60 MIN DUR CLINICAL HISTORY: breast cancer screening, PERSONAL H/O BREAST CA, Z85.3. TECHNIQUE: Bilateral full field digital CC and MLO mammographic images were obtained with 3D tomosyn thesis and utilizing computer aided detection (CAD). COMPARISON: Prior mammograms were reviewed, the most recent being 02/20/2021. This patient underwent left mastectomy in 2019. FINDINGS: The fibroglandular tissue pattern of the right breast is again noted be moderately dense. There are no new spiculated masses nor malignant appearing microcalcification groups. Benign micro and macro calcifications are again noted. There is no significant architectural distortion nor skin thickening-retraction. IMPRESSION: No radiographic evidence of malignancy in the right breast. BI-RADS Category 2 - Benign Findings Breast Density - Category C - Heterogeneously dense Breast density Category C or D implies that the patient has dense breast tissue. Dense breast tissue can make it harder to find cancer on a mammogram. Dense breast tissue is also associated with an incr eased risk of breast cancer. This information about the result of the mammogram report was provided to the patient to raise their awareness. Use this report when you speak with the patient about their risks for breast cancer, which includes their family history. At that time, you may recommend additional screening tests (Ultrasoun d or MRI) as these tests may add significant information. A negative radiographic report should not delay biopsy if a dominant or clinically suspicious mass is present. Up to ten percent of cancers are not identified on mammography. A negative report may reinforce clinical impression. Adenosis and dense breasts may obscure an underlying neoplasm. False positive reports average 6 to 10%. Patient will receive a letter notifying them of these results.
== END ==
PROVIDERS: PCP Family Medicine; Visit Provider Family Medicine
DX: Z85.3 Personal history of malignant neoplasm of breast (principal); Z12.31 Encounter for screening mammogram for malignant neoplasm of breast; R92.8 Other abnormal and inconclusive findings on diagnostic imaging of breast
CPT/HCPCS: 77063; 77067

== ENCOUNTER 2022-03-17 03:58 | Outpatient (CLI) | payer OTHER, SELFPAY ==
[2022-03-17 10:33] LABS: Abs Immature Grans 0.02 10^3/uL (0.0-0.06); Absolute Basophil Count 0.02 10^3/uL (0.0-0.2); Absolute Eosinophil Count 0.11 10^3/uL (0.0-0.7); Absolute Lymphocyte Count 1.07 10^3/uL (1.2-3.4); Absolute Monocyte Count 0.39 10^3/uL (0.1-0.8); Absolute Neutrophil Count 4.17 10^3/uL (1.2-6.7); Basophils % 0.3; Eosinophils % 1.9; HCT 35.8 % (36.0-46.0); HGB 11.5 g/dL (11.2-15.7); Immature Grans % 0.3; Lymphocytes % 18.5; MCH 28.5 pg (27.0-33.0); MCHC 32.1 % (32.0-36.0); MCV 89 fL (80-95); MPV 10.8 fL (8.0-11.0); Monocytes % 6.7; Neutrophils % 72.3; Platelet Count 168 10^3/uL (130-400); RBC 4.04 10^6/uL (3.93-5.22); RDW 14.4 % (11.7-14.6); RDW-SD 46.5 fL; WBC 5.78 10^3/uL (4.4-10.8)
[2022-03-17 11:04] LABS: ALT 34 U/L (14-59); AST 20 U/L (15-37); Albumin 3.7 g/dL (3.4-5.0); Alkaline Phosphatase 95 U/L (46-116); Anion Gap 7.4 mmol/L (3-11); BUN 18 mg/dL (7-18); Bilirubin, Total 0.3 mg/dL (0.2-1.0); CO2 28.6 mmol/L (21.0-32.0); CREATININE 1.3 mg/dL (0.55-1.02); Calcium 9.3 mg/dL (8.5-10.1); Chloride 103 mmol/L (98-107); Estimated GFR 42.88 (mL/min/1.73m2); Ferritin 131 ng/mL (8-252); Glucose 131 mg/dL (74-106); Potassium 4.5 mmol/L (3.5-5.1); Sodium 139 mmol/L (136-145); Total Protein 7.6 g/dL (6.4-8.2)
== END 2022-03-17 03:59 | disposition home or self-care (01) ==
LOC: LBO 03:58
PROVIDERS: Nurse Practitioner Adult Health; PCP Family Medicine; Visit Provider Internal Medicine
DX: C50.912 Malignant neoplasm of unspecified site of left female breast (principal); D50.9 Iron deficiency anemia, unspecified
CPT/HCPCS: 36415; 80053; 82728; 85025

== ENCOUNTER 2022-04-09 15:34 | Outpatient (CLI) | payer OTHER, SELFPAY ==
[2022-04-09 13:30] LABS: TSH (W/Ref FT4) 9.52 uIU/mL (0.36-3.74)
== END 2022-04-09 15:35 | disposition home or self-care (01) ==
LOC: LBO 15:35
PROVIDERS: PCP Family Medicine; Visit Provider Family Medicine
DX: E03.9 Hypothyroidism, unspecified (principal)
CPT/HCPCS: 36415; 84439; 84443

== ENCOUNTER 2022-09-07 03:08 | Outpatient (CLI) | payer OTHER, SELFPAY ==
[2022-09-07 14:06] LABS: Abs Immature Grans 0.03 10^3/uL (0.0-0.06); Absolute Basophil Count 0.04 10^3/uL (0.0-0.2); Absolute Lymphocyte Count 1.29 10^3/uL (1.2-3.4); Absolute Neutrophil Count 5.16 10^3/uL (1.2-6.7); Basophils % 0.6; Eosinophils % 1.4; HCT 38.9 % (36.0-46.0); HGB 12.1 g/dL (11.2-15.7); Immature Grans % 0.4; Lymphocytes % 18.4; MCH 27.2 pg (27.0-33.0); MCHC 31.1 % (32.0-36.0); MCV 87 fL (80-95); MPV 10.8 fL (8.0-11.0); Monocytes % 5.7; Neutrophils % 73.5; Platelet Count 202 10^3/uL (130-400); RBC 4.45 10^6/uL (3.93-5.22); RDW 14.9 % (11.7-14.6); RDW-SD 47.8 fL; WBC 7.02 10^3/uL (4.4-10.8)
[2022-09-07 14:38] LABS: ALT 25 U/L (14-59); AST 18 U/L (15-37); Albumin 3.9 g/dL (3.4-5.0); Alkaline Phosphatase 102 U/L (46-116); Anion Gap 11.9 mmol/L (3-11); BUN 23 mg/dL (7-18); Bilirubin, Total 0.2 mg/dL (0.2-1.0); CO2 28.1 mmol/L (21.0-32.0); CREATININE 1.4 mg/dL (0.55-1.02); Calcium 9.5 mg/dL (8.5-10.1); Chloride 101 mmol/L (98-107); Estimated GFR 38.99 (mL/min/1.73m2); Ferritin 104 ng/mL (8-252); Glucose 181 mg/dL (74-106); Potassium 3.8 mmol/L (3.5-5.1); Sodium 141 mmol/L (136-145); Total Protein 7.7 g/dL (6.4-8.2)
[2022-09-07 14:41] LABS: TSH (W/Ref FT4) 7.71 uIU/mL (0.36-3.74)
[2022-09-07 16:13] LABS: FREE T4 0.82 ng/dL (0.76-1.46)
== END 2022-09-07 03:09 | disposition home or self-care (01) ==
PROVIDERS: PCP Family Medicine; Visit Provider Nurse Practitioner Adult Health
DX: C50.912 Malignant neoplasm of unspecified site of left female breast; E03.9 Hypothyroidism, unspecified
CPT/HCPCS: 36415; 80053; 82728; 84439; 84443; 85025

== ENCOUNTER 2022-10-22 03:39 | Outpatient (CLI) | payer OTHER, SELFPAY ==
[2022-10-22 13:12] LABS: Hemoglobin A1C 6.7 % (<5.7)
[2022-10-22 13:20] LABS: TSH (W/Ref FT4) 0.93 uIU/mL (0.36-3.74)
== END 2022-10-22 03:40 | disposition home or self-care (01) ==
LOC: LOS 03:39
PROVIDERS: PCP Family Medicine; Visit Provider Family Medicine
DX: E03.9 Hypothyroidism, unspecified (principal); R73.9 Hyperglycemia, unspecified
CPT/HCPCS: 36415; 83036; 84443

== ENCOUNTER 2023-02-09 04:01 | Outpatient (CLI) | payer OTHER, SELFPAY ==
[2023-02-09 12:12] LABS: Abs Immature Grans 0.02 10^3/uL (0.0-0.06); Absolute Basophil Count 0.03 10^3/uL (0.0-0.2); Absolute Eosinophil Count 0.09 10^3/uL (0.0-0.7); Absolute Lymphocyte Count 1.11 10^3/uL (1.2-3.4); Absolute Monocyte Count 0.33 10^3/uL (0.1-0.8); Basophils % 0.6; Eosinophils % 1.7; HCT 35.9 % (36.0-46.0); HGB 11.4 g/dL (11.2-15.7); Immature Grans % 0.4; MCH 27.7 pg (27.0-33.0); MCHC 31.8 % (32.0-36.0); MCV 87 fL (80-95); MPV 11.8 fL (8.0-11.0); Monocytes % 6.3; Platelet Count 196 10^3/uL (130-400); RBC 4.12 10^6/uL (3.93-5.22); RDW 14.2 % (11.7-14.6); RDW-SD 45.1 fL; WBC 5.28 10^3/uL (4.4-10.8)
[2023-02-09 12:36] LABS: ALT 22 U/L (14-59); AST 15 U/L (15-37); Albumin 3.5 g/dL (3.4-5.0); Alkaline Phosphatase 100 U/L (46-116); BUN 21 mg/dL (7-18); Bilirubin, Total 0.3 mg/dL (0.2-1.0); CREATININE 1.4 mg/dL (0.55-1.02); Calcium 9.2 mg/dL (8.5-10.1); Chloride 104 mmol/L (98-107); Estimated GFR 38.99 (mL/min/1.73m2); Ferritin 86 ng/mL (8-252); Glucose 155 mg/dL (74-106); Potassium 4.1 mmol/L (3.5-5.1); Sodium 142 mmol/L (136-145); Total Protein 7.1 g/dL (6.4-8.2)
== END 2023-02-09 04:02 | disposition home or self-care (01) ==
LOC: LOS 04:01
PROVIDERS: PCP Family Medicine; Visit Provider Internal Medicine
DX: C50.912 Malignant neoplasm of unspecified site of left female breast (principal); D50.0 Iron deficiency anemia secondary to blood loss (chronic); D63.0 Anemia in neoplastic disease
CPT/HCPCS: 36415; 80053; 82728; 85025

== ENCOUNTER → 2023-02-26 00:23 | Outpatient (CLI) | payer OTHER, SELFPAY ==
--- NOTE | 2023-02-26 | DI.MAMMO_ITS ---
Exam(s) MG MAMMO SCREENING 60 MIN DUR EXAM: MG MAMMO SCREENING 60 MIN DUR CLINICAL HISTORY: SCREENING MAMMO Z12.31,PERSONAL H/O BREAST CA. TECHNIQUE: Craniocaudal and mediolateral oblique Full Field Digital Mammography views of the right b reast with Computer Aided Diagnosis followed by Tomosynthesis. COMPARISON: Comparison is made with prior examinations. FINDINGS: Mammography/Tomosynthesis: The patient has a left mastectomy. Masses/Architectural Distortion: None seen. Microcalcifictions: No suspicious pleomorphic-type are seen. Stable calcifications are seen in the ri ght breast. Skin Thickening/Nipple Retraction: None. IMPRESSION: 1. No evidence of malignancy is noted. 2. Unless there is more urgent need, follow-up screening mammography is recommended, as per [place] [employer] guidelines. 3. The findings were discussed with the patient on the date of the examination. BI-RADS Category 2 - Benign Findings Breast Density - Category C - Heterogeneously dense Breast density Category C or D implies that the patient has dense breast tissue. Dense breast tissue can make it harder to find cancer on a mammogram. Dense breast tissue is also associated with an incr eased risk of breast cancer. This information about the result of the mammogram report was provided to the patient to raise their awareness. Use this report when you speak with the patient about their risks for breast cancer, which includes their family history. At that time, you may recommend additional screening tests (Ultrasoun d or MRI) as these tests may add significant information. A negative radiographic report should not delay biopsy if a dominant or clinically suspicious mass is present. Up to ten percent of cancers are not identified on mammography. A negative report may reinforce clinical impression. Adenosis and dense breasts may obscure an underlying neoplasm. False positive reports average 6 to 10%. Patient will receive a letter notifying them of these results.
--- OUTSIDE RECORDS SUMMARY | 2023-02-26 00:30 | XMS_ITS | Continuity of Care Document ---
Author Name Unknown Organization [facility] Address [address] [place] [address] Care Team Providers Care Hospitalist Physician Name Role Phone Unavailable, Physician Primary Care Physician Un available Encounter [facility] Date(s): 09/07/22 - 09/07/22 [facility] [address] [place] [address] Encounter Diagnosis LUAN (obstructive sleep apnea)(Discharge Diagnosis) - 09/07/22 PLMD (periodic limb movement disorder)(Discharge Diagnosis) - 09/07/22 Discharge Disposition: Home or Self Care Attending Physician: Gricel Covington GEOTHERMAL HVAC TECHNICIAN Allergies, Adverse Reactions, Alerts Substance Reaction Severity Status codeine Unknown Active lidocaine Unknown Active Assessment and Plan Future Appointments Functional Status 09/07/22 Other exposure to Infectious Disease Non e Medications !-Bactroban 2% topical cream 1 brodie, Topical, TID, # 15 g, 0 Refill(s) Start Date: 09/04/22 Status: Ordered Centrum Silver 0 Refill(s) Start Date: 09/04/22 Status: Ordered gabapentin 300 mg oral capsule 300 mg = 1 cap, Oral, every day at bedtime, # 30 cap, 0 Refill(s) Start Date: 09/04/22 Status: Ordered ibuprofen 200 mg oral capsule 400 mg = 2 cap, Oral, every 4 hr, PRN as needed for pain, # 120 cap, 0 Refill(s) Start Date: 09/04/22 Status: Ordered levothyroxine 75 mcg (0.075 mg) oral capsule 75 mcg = 1 cap, Oral, Daily, # 30 cap, 0 Refill(s) Start Date: 09/04/22 Status: Ordered lisinopril 10 mg oral tablet 10 mg = 1 tab, Oral, Daily, # 90 tab, 0 Refill(s) Start Date: 09/04/22 Status: Ordered metFORMIN 500 mg oral tablet 500 mg = 1 tab, Oral, BID, # 60 tab, 0 Refill(s) Start Date: 09/04/22 Status: Ordered omeprazole 20 mg oral delayed release capsule 20 mg = 1 cap, Oral, Daily, # 30 cap, 0 Refill(s) Start Date: 09/04/22 Status: Ordered pravastatin 40 mg oral tablet 40 mg = 1 tab, Oral, Daily, # 30 tab, 0 Refill(s) Start Date: 09/04/22 Status: Ordered sertraline 50 mg oral tablet 50 mg = 1 tab, Oral, Daily, # 30 tab, 0 Refill(s) Start Date: 09/04/22 Status: Ordered Vitamin D3 50 mcg (2000 intl units) oral tablet, chewable 50 mcg = 1 tab, Oral, Daily, # 30 EA, 0 Refill(s) Start Date: 09/04/22 Status: Ordered vitamin E 0 Refill(s) Start Date: 09/04/22 Status: Ordered Problem List Condition Confirmation Course Effective Dates Status H ealth Status Informant Avila's esophagus Confirmed Active Depressive disorder Confirmed Active Hyperlipidemia Confirmed Active Hypertensive disorder Confirmed Active Hypothyroidism Confirmed Active LUAN (obstructive sleep apnea) Confirmed Active PLMD (periodic limb movement disorder) Confirmed Active Polyp of colon Confirmed Active Malignant neoplasm of left breast with no evidence of primary tumor Confirmed Active Diabetes mellitus due to underlying condition with diabetic chronic kidney disease Confirmed Active Shoulder pain Confirmed Active Vital Signs Most recent to oldest [Reference Range]: 1 Weight 104.33 kg (09/07/22 9:40 AM) Weight Measured (lbs) 230.008 lb (09/07/22 9:40 AM) Height 153 cm (09/07/22 9:40 AM) Height/Length Measured (inches) 60.24 in ch (09/07/22 9:40 AM) BSA Measured 2.11 m2 (09/07/22 9:40 AM) Body Mass Index 44.57 kg/m2 (09/07/22 9:40 AM) Social History Social History Type Response Tobacco Never tobacco user T obacco Use:. Sex Female Polysomnography (sleep) study * Fermín Reid: PERFORM Event Display: Sleep Study Authored Date: [id number] * Fermín Reid: PERFORM Event Display: Sleep Study Authored Date: [id number] Physician Outpatient Note * Gricel Covington GEOTHERMAL HVAC TECHNICIAN: PERFORM Event Display: Office Clinic Note Physician Authored Date: [id number] JENNIFER SANTIZO :1945 Age:77 years Sex:Female Visit Date:09/07/2022 Primary Care Physician: Unavailable, Physician History of Present Illness Jennifer Santizo has a Zoom visit for PLMD and LUAN follow-up. She has given consent to have a telehealth visit. Patient is at home, provider is in the office. ?? Jennifer was last seen by me on 11/03/2021. Jennifer has a history of HTN, depression, obesity, DM, hypothyroidism, PLMD and LUAN. PSG 01/18/2006 at [facility] AHI 62/hr, 02 chiara 80%, no PLMS. Titration study at [facility] 04/07/2013 (BMI 46.1), CPAP 13 cm optimal including in supine REM sleep. PLMi42.8/hr, PLMai 15.1/hr, CPAP 13-15 cm recommended. At last visit she was using CPAP 13-16 cm and taking gabapentin 300 mg with improvement in RLS. Excellent compliance and reduction in AHI. ?? Jennifer tells me that she uses CPAP regularly since she has gotten her new supplies. She never received a replacement CPAP through the recall and she recently got a letter from [facility] which appears to be requesting an order from us. She is using nasal pillows with prongs and she likes this mask andhas less leakage. The air pressure feels good most of the time but occasionally it feels too fast. She goes to bed around 9-10 pm, she falls asleep easily. She wakes up 2-3/night to urinate and sheis able to get right back to sleep. She gets up at 8-9 am to start her day. She is not typically napping except when she is over tired. She is not waking up at night choking or gasping, she is aware of occasional snoring when her mask leaks air. She sleeps much better and feels better with CPAP. She is still taking gabapentin and says this is working great. She is not aware of any RLS symptoms since she has been taking this. ?? ESS today 10/26 COMPLIANCE DATA: not available Physical Exam Vitals & Measurements HT:??153??cm?? WT:??104.33??kg?? BMI:??44.57?? BSA:??2.11?? N/A Assessment/Plan 1.??LUAN (obstructive sleep apnea)??G47.33 LUAN with an AHI of 62/hr. She is using APAP 13-16 cm, there was no compliance data available for review today but she has been asked to get us her SD card at her earliest convenience. She says she isusing her CPAP regularly and she has been tolerating it generally well. She benefits from using CPAP and continued use is recommended. She has an old System One CPAP that has been recalled and we have sent her an order for a new one to send to [facility] as they have requested. She plans to read the email they sent to determine where she needs to send that order/Rx. She is advised to keep up with the routine maintenance of the machine and to clean/replace parts as needed. I will see her back in one year as long as her compliance data looks good. She is asked to call our office for any sleep related questions or concerns. I provided greater than 30 minutes in the care of this patient, more than half the time was spent in [id number] counseling. 2.??PLMD (periodic limb movement disorder)??G47.61 PLMi 42.8/hr, PLMai 15.1/hr, during her titration study in 2012. She cannot tolerate any form of oral iron. She is taking gabapentin 300 mg QHS and ??says this is working great. She is not aware ofany RLS symptoms since she has been taking this. Problem List/Past Medical History Ongoing Avila's esophagus Depressive disorder Diabetes mellitus due to underlying condition with diabetic chronic kidney disease Hyperlipidemia Hypertensive disorder Hypothyroidism Malignant neoplasm of left breast with no evidence of primary tumor Morbid obesity LUAN (obstructive sleep apnea) PLMD (periodic limb movement disorder) Polyp of colon Shoulder pain Historical No qualifying data Medications !-Bactroban 2% topical cream, 1 brodie, Topical, TID Centrum Silver gabapentin 300 mg oral capsule, 300 mg= 1 cap, Oral, every night at bedtime ibuprofen 200 mg oral capsule, 400 mg= 2 cap, Oral, every 4 hr, PRN levothyroxine 75 mcg (0.075 mg) oral capsule, 75 mcg= 1 cap, Oral, Daily lisinopril 10 mg oral tablet, 10 mg= 1 tab, Oral, Daily metFORMIN 500 mg oral tablet, 500 mg= 1 tab, Oral, BID omeprazole 20 mg oral delayed release capsule, 20 mg= 1 cap, Oral, Daily pravastatin 40 mg oral tablet, 40 mg= 1 tab, Oral, Daily sertraline 50 mg oral tablet, 50 mg= 1 tab, Oral, Daily Vitamin D3 50 mcg (2000 intl units) oral tablet, chewable, 50 mcg= 1 tab, Oral, Daily vitamin E Allergies codeine lidocaine Social History Electronic Cigarette/Vaping Electronic Cigarette Use: Never. Tobacco Never tobacco user Tobacco Use:. Electronically Signed on 09/07/22 10:03 AM Gricel Covington NP * Fermín Reid: PERFORM Event Display: Office Clinic Note Physician Authored Date: [id number] Print Last amended by GRICEL COVINGTON NP on 11/06/2021 at 12:14pm View Changes: [email or web address] 11/06/2021 12:14pm Patient Name JENNIFER SANTIZO (76yo, F) ID# [id number] Appt. Date/Time 11/03/2021 09:45AM 1945 Service Dept. P_Sleep Medicine Provider GRICEL COVINGTON NP Insurance Med Primary: [facility] (MEDICARE REPLACEMENT/ADVANTAGE - PPO) Insurance # : [id number] Prescription: [facility] - Member is eligible. details Prescription: [facility] - Member is eligible. details Chief Complaint Telehealth - Video/Zoom Patient's Care Team Primary Care Provider: CELIA CAICEDO MD: [address], [place] [address], , Dev Manager: LUCERO ALBARADO DO: [address] [place] [address], , Other: [facility]: [address], [place] [address], , Patient's Pharmacies [facility] ([facility], [facility]): [address] [place] [address] [address], [place] [address], , [facility] ([facility]): [address] [place] [phone], Ph , [facility] 11/03/2021 09:43 am Ht: Stated Wt: Stated Allergies Reviewed Allergies CODEINE LIDOCAINE Medications Reviewed Medications Bactroban 2 % topical cream APPLY A SMALL AMOUNT TO THE AFFECTED AREA BY TOPICAL ROUTE 3 TIMES PER DAY FOR 10 DAYS 02/07/18 entered [facility], CRYSTAL ATTACHER Centrum Silver 1 tab daily 02/07/18 entered [facility], CRYSTAL ATTACHER gabapentin 300 mg capsule Take 1 capsule(s) every day by oral route at bedtime. 06/10/20 entered GRICEL COVINGTON NP ibuprofen 200mg tabs- 2tabs PRN 02/07/18 entered [facility], CRYSTAL ATTACHER levothyroxine 75mcg daily 02/07/18 entered [facility], CRYSTAL ATTACHER lisinopriL 10mg daily 02/07/18 entered [facility]Cust[facility], CRYSTAL ATTACHER metFORMIN 500mg BID 02/07/18 entered [facility], CRYSTAL ATTACHER omeprazole 20mg BID 02/07/18 entered [facility], CRYSTAL ATTACHER pravastatin 40mg at bedtime 02/07/18 entered [facility] Jackson, CRYSTAL ATTACHER sertraline 50mg daily 02/07/18 entered [facility] Jackson, CRYSTAL ATTACHER Tylenol Extra Strength 500mg tabs- 1 tab PRN 02/07/18 entered [facility] Jackson, CRYSTAL ATTACHER Vitamin D3 400units daily 02/07/18 entered [facility], CRYSTAL ATTACHER vitamin E 400units daily 02/07/18 entered [facility], CRYSTAL ATTACHER Vaccines None recorded. Problems Reviewed Problems Malignant tumor of breast - Onset: 03/10/2019, Left Obstructive sleep apnea syndrome - Onset: 02/07/2018 - PSG 01/18/06 AHI 62, 02 80%, CPAP 13-16 m [place]- Periodic limb movement disorder - Onset: 02/18/2018 - titration 2012 PLMi 42.8/hr, PLMai 15.1/hr Avila's esophagus - Onset: 02/07/2018 Depressive disorder - Onset: 02/07/2018 Hypertensive disorder - Onset: 02/07/2018 Squamous cell carcinoma - Onset: 02/07/2018 - nose Hypothyroidism - Onset: 02/07/2018 Obesity - Onset: 02/07/2018 Shoulder pain - Onset: 02/07/2018 Hyperlipidemia - Onset: 02/07/2018 Polyp of colon - Onset: 02/07/2018 Diabetes mellitus - Onset: 02/07/2018 Social History Reviewed Social History Education and Occupation Are you currently employed?: No 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 Substance Use Do you or have you ever smoked tobacco?: Never smoker What was the date of your most recent tobacco screening?: 04/27/2018 What is your level of alcohol consumption?: None What is your level of caffeine consumption?: (Notes: 1-2 cups coffee daily a cup a tea in evening sometimes) Activities of Daily Living Are you blind or do you have difficulty seeing?: Yes (Notes: corrective glasses) [facility] General Social History List Language Difficulties: No Other Hard of hearing or deaf in one or both ears?: No Live alone or with others?: alone Gender Identity and LGBTQ Identity Screening Name Score Notes [place] Sleepiness 2 HPI Jennifer Santizo has a Zoom visit for PLMD and LUAN follow-up. She has given consent to have a telehealth visit. Patient is at home, provider is in the office. Jennifer was last seen by me on 06/10/2020. Jennifer has a history of HTN, depression, obesity, DM, hypothyroidism, PLMD and LUAN. She had a PSG 01/18/2006 at [facility] AHI 62/hr, 02 chiara 80%, no PLMS. Titration study at [facility] 04/07/2013 (BMI 46.1), CPAP 13 cm optimal including in supine REM sleep. PLMi 42.8/hr,PLMai 15.1/hr, CPAP 13-15 cm recommended. At last visit she was using CPAP 13-16 cm and taking gabapentin 300 mg with improvement in RLS. Excellent compliance and reduction in AHI. Jennifer tells me she is using her CPAP every night. She gets to bed between 9-10 pm, she falls asleep in 5-10 minutes most nights. She wakes up 2-3/night to urinate and she is able to get back to sleep easily. She gets up at 8:30-9 am, she is not napping. The CPAP air pressure feels fine. She uses aFFM and tolerates this well but has to wear it under her chin. She is not aware of any excessive leaking, she is changing parts as needed. She is aware of rare snoring that wakes her. She denies having any nocturnal choking/gasping, night sweats or morning headaches. She is not using the heat because that made it feel difficult to breathe. This is much better now. ESS today 08/28 COMPLIANCE REVIEW: N/A ROS ROS as noted in the HPI Physical Exam N/A Assessment / Plan 1. Obstructive sleep apnea syndrome - LUAN with an AHI of 62/hr. She is using APAP 13-16 cm, there was no compliance data available for review today and she has been asked to mail in or drop off her SD card at her earliest convenience. She reports excellent compliance and feels her sleep continues to be better with CPAP and she generally feels well rested. Continued use of CPAP is recommended. She is encouraged to keep up with the routine maintenance of the machine and to clean and replace parts as indicated. I will see her back in one year. She is asked to call the clinic for any sleep related questions or concerns. ADDENDUM 11/06/21: excellent compliance and reduction in AHI, large leak at 3 hrs 20 min nit clinically significant I provided greater than 20 minutes in the care of this patient, more than half the time was spent in [id number] counseling. G47.33: Obstructive sleep apnea (adult) (pediatric) 2. Periodic limb movement disorder - PLMi 42.8/hr, PLMai 15.1/hr, during her titration study in 2012. She cannot tolerate any form of oral iron. She is taking gabapentin 300 mg QHS. G47.61: Periodic limb movement disorder Return to Office to see GRICEL COVINGTON NP at P_Sleep Medicine on or around 11/03/2022 Electronically Signed on 09/04/22 12:46 PM Fermín Reid Patient Care team information Care Team Personnel Name: Gricel Covington NP Position: Physician Member Role: Nurse Practitioner Address: Address: [address] [place] [address] [address], [place] [address] Name: Unavailable, Physician Position: No Access Member Role: Primary Care Physician
== END ==
PROVIDERS: PCP Family Medicine; Visit Provider Radiology Radiation Oncology
DX: Z12.31 Encounter for screening mammogram for malignant neoplasm of breast (principal); Z85.3 Personal history of malignant neoplasm of breast
CPT/HCPCS: 77063; 77067

== ENCOUNTER → 2023-03-18 01:04 | Outpatient (CLI) | payer OTHER, SELFPAY ==
--- NOTE | 2023-03-18 | DI.DEXA_ITS ---
Exam(s) XR DEXA BONE DENSITY W/WO RONEL EXAM: XR DEXA BONE DENSITY W/WO RONEL CLINICAL HISTORY: SCREENING FOR OSTEOPOROSIS IN POSTMENOPAUSAL WOMAN,Z78.0, LT BREAST CA,LONG TECHNIQUE: Routine DEXA evaluation of the lumbar spine, hip, or forearm. COMPARISON: No exams were available for comparison FINDINGS: Performed on a Hologic unit. Lateral image: No compression fracture evident. Lumbar Spine total T-score: 2.6 Hip total T-score:0.4 Independent reading at the level of the femoral neck yields T-score of -1.0 Forearm total T-score: -0.2 IMPRESSION: Bone mineral density measures in the normal range. Fracture risk is low. Note: Any spine fracture indicates 5x risk for subsequent spine fracture and 2x risk for subsequent h ip fracture. World Health Organization criteria for BMD interpretation classify patients: Normal...... T- Score at or above -1.0 Osteopenic... T- Score between -1.0 and -2.5 Osteoporosis... T-Score at or below -2.5
== END ==
PROVIDERS: PCP Family Medicine; Visit Provider Internal Medicine
DX: Z13.820 Encounter for screening for osteoporosis (principal); Z78.0 Asymptomatic menopausal state; Z85.3 Personal history of malignant neoplasm of breast
CPT/HCPCS: 77080

== ENCOUNTER 2023-04-14 15:43 | Outpatient (REF) | payer OTHER, SELFPAY ==
[2023-04-14 14:18] LABS: COMMENT (LAB VIEW ONLY) 73.35 mg/dL
[2023-04-14 14:19] LABS: Microalb ug/mg Crea 195.1 ug/mg Cr
== END 2023-04-14 15:44 | disposition home or self-care (01) ==
LOC: LBN 15:43
PROVIDERS: PCP Family Medicine; Visit Provider Family Medicine
DX: E11.9 Type 2 diabetes mellitus without complications (principal)
CPT/HCPCS: 82043; 82570

== ENCOUNTER 2023-08-17 03:21 | Outpatient (CLI) | payer OTHER, SELFPAY ==
[2023-08-17 09:49] LABS: Abs Immature Grans 0.02 10^3/uL (0.0-0.06); Absolute Basophil Count 0.03 10^3/uL (0.0-0.2); Absolute Eosinophil Count 0.13 10^3/uL (0.0-0.7); Absolute Lymphocyte Count 1.49 10^3/uL (1.2-3.4); Absolute Monocyte Count 0.49 10^3/uL (0.1-0.8); Absolute Neutrophil Count 5.02 10^3/uL (1.2-6.7); Basophils % 0.4; Eosinophils % 1.8; HCT 36.5 % (36.0-46.0); HGB 11.6 g/dL (11.2-15.7); Immature Grans % 0.3; Lymphocytes % 20.8; MCH 28.2 pg (27.0-33.0); MCHC 31.8 % (32.0-36.0); MCV 89 fL (80-95); MPV 10.6 fL (8.0-11.0); Monocytes % 6.8; Neutrophils % 69.9; Platelet Count 195 10^3/uL (130-400); RBC 4.11 10^6/uL (3.93-5.22); RDW 13.7 % (11.7-14.6); RDW-SD 44.6 fL; WBC 7.18 10^3/uL (4.4-10.8)
[2023-08-17 10:16] LABS: ALT 29 U/L (14-59); AST 17 U/L (15-37); Albumin 3.7 g/dL (3.4-5.0); Alkaline Phosphatase 109 U/L (46-116); Anion Gap 11.1 mmol/L (3-11); BUN 24 mg/dL (7-18); Bilirubin, Total 0.3 mg/dL (0.2-1.0); CO2 28.9 mmol/L (21.0-32.0); CREATININE 1.6 mg/dL (0.55-1.02); Calcium 9.7 mg/dL (8.5-10.1); Chloride 102 mmol/L (98-107); Estimated GFR 33.01 (mL/min/1.73m2); Ferritin 90 ng/mL (8-252); Glucose 129 mg/dL (74-106); Potassium 4.2 mmol/L (3.5-5.1); Sodium 142 mmol/L (136-145); Total Protein 7.6 g/dL (6.4-8.2)
== END 2023-08-17 03:22 | disposition home or self-care (01) ==
PROVIDERS: PCP Family Medicine; Visit Provider Internal Medicine
DX: D50.9 Iron deficiency anemia, unspecified (principal); C50.912 Malignant neoplasm of unspecified site of left female breast
CPT/HCPCS: 36415; 80053; 82728; 85025

== ENCOUNTER → 2023-11-30 00:26 | Outpatient (CLI) | payer OTHER, SELFPAY ==
--- NOTE | 2023-11-30 | DI.NM_ITS ---
Exam(s) NM BONE SCAN WHOLE BODY GRP EXAM: NM BONE SCAN WHOLE BODY GRP CLINICAL HISTORY: Hormone receptor positive malignant neoplasm of lt breast, C50.912. TECHNIQUE: Injected Dose: 25 mCi Tc-99m MDP Delayed Images: 2-3 hours. COMPARISON: CT ABD PELVIS WITH CONTRAST from 02/07/2015 NM Myocardial Perfusion from 08/01/[address] CHEST PE CTA from 03/14/2019 CR XR KNEE LT 3V AP,LAT,JUSTINE from 04/21/2019 CR XR KNEE RT 3V AP,LAT,JUSTINE from 04/21/2019 CR XR DEXA BONE DENSITY W/WO RONEL from 03/18/2023 FINDINGS: There is increased radiotracer uptake in the medial aspect of the left knee consistent with the patie nt's marked degenerative changes. There are lucent findings in the right knee suggestive of a right knee replacement. Please correlate clinically. Symmetric activity is seen in the shoulders bilatera lly consistent with degenerative changes. There is mild increased radiotracer uptake seen in the low er lumbar spine likely reflecting degenerative changes present. Bilateral renal excretion is identif ied. There is increased radiotracer uptake seen in the ankles bilaterally. There are no x-rays for c omparison. This may reflect degenerative changes. No definite suspicious foci of increased radiotra cer uptake are seen to suggest metastatic disease. IMPRESSION: 1. Radiotracer uptake seen suggesting degenerative changes in the shoulders, left knee, lumbar spine and probable angles. Correlation with bilateral ankle films is recommended. 2. No definite findings to suggest metastatic disease. 3. Photopenic areas seen in the right knee suggesting prior joint replacement. Please correlate clin ically. DATA REPOSITORY:
== END ==
PROVIDERS: PCP Family Medicine; Visit Provider Radiology Radiation Oncology
DX: C50.912 Malignant neoplasm of unspecified site of left female breast (principal); M19.011 Primary osteoarthritis, right shoulder; M19.012 Primary osteoarthritis, left shoulder
CPT/HCPCS: 78306

== ENCOUNTER → 2023-12-09 02:35 | Outpatient (CLI) | payer OTHER, SELFPAY ==
--- NOTE | 2023-12-09 | DI.CT_ITS ---
Exam(s) CT CHEST W EXAM: CT CHEST W CLINICAL HISTORY: S/P RADIOTHERAPY, Z92.3, H/O L BREAST CA, LT CHEST WALL DISCOMFORT. TECHNIQUE: Multi planar reconstructions were performed. CONTRAST MATERIAL: Omnipaque 350; 75 cc COMPARISON: CT ABD PELVIS WITH CONTRAST from 02/07/2015 FINDINGS: CHEST: There is evidence of prior left mastectomy. LUNGS: There is mild subpleural infiltrate in the anterior segment of the left upper lobe extending d own into the superior lingular segment. There is no overlying rib destruction. 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 There are no concerning nodules in the left lung and no pleural ef fusions. Mild increased markings in the posterior basal segment are noted. There are no significant focal findings in the opposite-right lung. Mild benign-appearing increased markings are noted in th e posterior basal segment of the right lower lobe. There are no pleural effusions on either side. N o findings in the trachea and mainstem bronchi. MEDIASTINUM: There is no hilar nor mediastinal adenopathy. Partially visualized thyroid unremarkable. No axillary adenopathy. CARDIAC: Heart size is normal. There is no pericardial effusion.Caliber of the thoracic aorta is wit hin normal limits. VISUALIZED UPPER ABDOMEN:No adrenal masses. OSSEOUS: No significant osseous lesions.Sclerotic density in the anterior aspect of L1 vertebral body is unchanged from CT scan of February 2015 and therefore most probably benign bone island.. IMPRESSION: 1. There is mild subpleural infiltrate in the anterior segment of the left lobe and superior aspect o f the adjacent lingular segment. Given that there is overlying left mastectomy this is most probably related to post radiation changes. There is no abnormal chest wall mass seen nor rib lesions seen. 2. There are no metastatic lung nodules nor pleural effusions. 3. There is no intrathoracic adenopathy. RADIATION DOSE DELIVERED: 605.32mGy.cm Total DLP DATA REPOSITORY: All CT scans at this facility are submitted to the National Radiology Data Registry (NRDR) Dose Index Registry (DIR) with the [employer] (ACR). RADIATION OPTIMIZATION: All CT scans at this facility use at least one of these dose optimization te chniques: automated exposure control; mA and/or kV adjustment per patient size (includes targeted exa ms where dose is matched to clinical indication); or iterative reconstruction.
[2023-12-09 10:29] LABS: CREATININE 1.4 mg/dL (0.55-1.02); Estimated GFR 38.75 (mL/min/1.73m2)
[2023-12-09] MEDS: Normal Saline - Diluent 50 ML VIAL IJ (10:46)
[2023-12-09] MEDS: Omnipaque 350 MG/ML 500 ML BTL-Imaging package IJ (10:47)
== END ==
PROVIDERS: PCP Family Medicine; Visit Provider Radiology Radiation Oncology
DX: R91.8 Other nonspecific abnormal finding of lung field (principal); Z92.3 Personal history of irradiation
CPT/HCPCS: 71260; 82565

== ENCOUNTER 2024-02-29 01:26 | Outpatient (CLI) | payer OTHER, SELFPAY ==
--- NOTE | 2024-02-29 | DI.US_ITS ---
Exam(s) US BREAST RT COMPLETE MG MAMMO SCREENING 60 MIN DUR EXAM: MG MAMMO SCREENING 60 MIN DUR AND COMPLETE RIGHT BREAST ULTRASOUND CLINICAL HISTORY: H/O BREAST CA,C50.923,LT BREAST CA, SCREENING. TECHNIQUE: UNILATERAL RIGHT BREAST full field digital CC and MLO mammographic images were obtained w ith 3D tomosynthesis and utilizing computer aided detection (CAD). Also performed multiple spot compr ession views of the right breast. COMPLETE RIGHT BREAST ULTRASOUND was performed including all 4 quadrants as well as the axillary jeannette ons. COMPARISON: Prior mammograms were reviewed. There has been prior left mastectomy. FINDINGS: DIAGNOSTIC RIGHT BREAST MAMMOGRAM: Multiple benign micro and macro calcifications are again noted. On the MLO there is an oval nodule measuring point by 0 9 cm, located superficially laterally on the MLO view and not seen on the CC view nor on additional spot compression views and there is no corresp onding breast mole. There are no malignant-appearing microcalcification groups in this region. There is no significant architectural distortion nor skin thickening-retraction. We proceeded to ultrasound... COMPLETE RIGHT BREAST ULTRASOUND: there is no evidence of solid or significant cystic lesions in all 4 quadrants. Scanning of the right axilla is negative for adenopathy. IMPRESSION: Finding on the mammogram is most probably the breast nipple. We did repeat a MLO view with nipple in profile which made the nodule disappear. This, together with a negative breast ultrasound implies t hat this oval nodule was indeed a nipple. There is no radiographic evidence of malignancy. Appropriate follow-up is keep this patient on a yearly mammogram schedule, with earlier imaging if a self detected breast change is noted. BI-RADS Category 2 - Benign Findings Breast Density - Category C - Heterogeneously dense Breast density Category C or D implies that the patient has dense breast tissue. Dense breast tissue can make it harder to find cancer on a mammogram. Dense breast tissue is also associated with an incr eased risk of breast cancer. This information about the result of the mammogram report was provided to the patient to raise their awareness. Use this report when you speak with the patient about their risks for breast cancer, which includes their family history. At that time, you may recommend additional screening tests (Ultrasoun d or MRI) as these tests may add significant information. A negative radiographic report should not delay biopsy if a dominant or clinically suspicious mass is present. Up to ten percent of cancers are not identified on mammography. A negative report may reinforce clinical impression. Adenosis and dense breasts may obscure an underlying neoplasm. False positive reports average 6 to 10%. Patient will receive a letter notifying them of these results.
--- OUTSIDE RECORDS SUMMARY | 2024-02-29 01:28 | XMS_ITS | Encounter Summary ---
Author Organization Formerly [facility] [place] [address] Care Team Providers Care Phlebotomist Supervisor/Instructor Name Role Phone Navid Avendaño MD Primary Care Provider [phone] Encounter Details Date Type Department Care Team (Late Contact Info) Description 04/29/2023 Orders Only [place] [address] Patsy Shelton MD [facility] [place] [address] Dense breast tissue on mammogram, unspecified type Social History Tobacco Use Types Packs/Day Years Used Date Smoking Tobacco: Never Smokeless Tobacco: Never Alcohol Use Standard Drinks/Week Comments No 0 (1 standard drink = 0.6 oz pur e alcohol) Sex and Gender Information Value Date Recorded Sex Assigned at Not on file Gender Identity Not on file Sexual Orientation Not on file documented as of this encounter Plan of Treatment Upcoming Encounters Date Type Department Care Team (Late Contact Info) Description 03/21/2024 2:30 PM EDT Office Visit Hematology/Oncology at [address] [phone] Edagr Carreon MD [facility] [place] [address] Kadie Gaming APRN [facility] [place] [address] 05/15/2024 3:30 PM EST Office Visit Radiation Oncology at [address] [address] Patsy Shelton MD [facility] [place] [address] documented as of this encounter Visit Diagnoses Diagnosis Dense breast tissue on mammogram, unspecified type documented in this encounter Care Teams Phlebotomist Supervisor/Instructor Relationship Specialty Start Date End Date Navid Avendaño MD [address] [place] [address] [address] PCP - General Family Medicine 01/24/19 documented as of this encounter
--- OUTSIDE RECORDS SUMMARY | 2024-02-29 01:28 | XMS_ITS | Encounter Summary ---
Author Organization [facility] Address [address] [place] [address] Care Team Providers Care Burr Bench Hand Name Role Phone Maya Burden MD Primary Care Provider [phone] Encounter Details Date Type Department Care Team (Latest Contact Info) Description 11/11/2018 11:18 EDT - 11/11/2018 23:59 EDT Hospital Encounter [address] [address] Unknown, Provider, Discharge Disposition: Home or Self Care Social History Tobacco Use Types Packs/Day Years Used Date Smoking Tobacco: Never Assessed Sex and Gender Information Value Date Recorded Sex Assigned at Not on file Gender Identity Female 03/04/2020 7:29 EDT Sexual Orientation Not on file documented as of this encounter Discharge Disposition Disposition Code Departure Means Destination Home or Self [facility] documented in this encounter Plan of Treatment Not on file documented as of this encounter Visit Diagnoses Not on filedocumented in this encounter Care Teams Burr Bench Hand Relationship Specialty Start Date End Date Maya Burden MD [address] [place] [address] [place] [address] PCP - General 10/02/11 11/08/19 documented as of this encounter
--- OUTSIDE RECORDS SUMMARY | 2024-02-29 01:28 | XMS_ITS | Encounter Summary ---
Author Organization [facility] Address [address] [place] [address] Care Team Providers Care Design Painter Name Role Phone Maya Gambino MD Primary Care Provider [phone] Encounter Details Date Type Department Care Team (Late st Contact Info) Description 02/07/2015 Results Only [facility] [phone] Joey Moore MD [address] [place] [address] Social History Tobacco Use Types Packs/Day Years Used Date Smoking Tobacco: Never Assessed Sex and Gender Information Value Date Recorded Sex Assigned at Not on file Gender Identity Female 03/04/2020 7:29 EDT Sexual Orientation Not on file documented as of this encounter Plan of Treatment Not on file documented as of this encounter Procedures Procedure Name Priority Date/Time Associated Diagnosis Comments SURGICAL PATHOLOGY Routine 02/07/2015 9:20 EDT documented in this encounter Results * SURGICAL PATHOLOGY (02/07/2015 9:20 EDT) Pathology Report: SURGICAL PATHOLOGY REPORT Reports generated via electronic interface contain original data; however they are lacking the format of the original report. Caution should be taken when reading/interpreting unformatted reports. Name: ? JENNIFER SANTIZO ? Accession #: ? [id number] ? : ? 1945 (Age: 69) ??F ? Collect Date: ? 02/07/2015 ? Location: ? [facility] ? Receive Date: ? 02/07/2015 ? Provider: JOEY MOORE MD Copy to: MAYA GAMBINO MD ? Final Pathologic Diagnosis: ENDOMETRIUM, BIOPSY: - ??Endometrial adenocarcinoma, endometrioid type (FIGO 1). Comment: This case is reviewed at intradepartmental consultation conference for confirmation of malignancy. Document reviewed and electronically signed by: Lidya Bergeron MD Report ??Date: 02/11/2015 15:09 By the signature above, the attending physician certifies that he/she has personally conducted a gross and/or microscopic examination of the described specimens and rendered or confirmed the above diagnosis. Specimen(s) Received: Endometrial biopsy Clinical History: PMB; thickened EMS; (-) EMBx 2006 Gross Description: ? Received in formalin labelled with proper patient identification (initials B, J) and endometrium is an aggregate of red-brown hemorrhagic mucinous material (2.0 x 2.0 x 0.5 cm). Submitted in toto in 1 following filtration. Shana Bettencourt 02/08/2015 12:29 PM End of Report [facility] 02/07/2015 9:20 EDT 02/07/2015 9:20 EDT Joey Moore MD PATHOLOGY ORDERABLES Performing Organization Address City/State/[facility] Co de Phone Number [facility] [address] [place] [address] documented in this encounter Visit Diagnoses Not on filedocumented in this encounter Care Teams Design Painter Relationship Specialty Start Date End Date Maya Gambino MD [address] [place] [address] [place] [address] PCP - General 10/02/11 11/08/19 documented as of this encounter
--- OUTSIDE RECORDS SUMMARY | 2024-02-29 01:28 | XMS_ITS | Encounter Summary ---
Author Organization [facility] Address [address] [place] [address] Care Team Providers Care Insulation Worker Furnace Installer Name Role Phone Maya Burden MD Primary Care Provider [phone] Encounter Details Date Type Department Care Team (Latest Contact Info) Description 03/13/2015 16:35 EDT - 03/13/2015 23:59 EDT Hospital Encounter [address] [address] Unknown, Provider, Discharge Disposition: Home or Self Care Social History Tobacco Use Types Packs/Day Years Used Date Smoking Tobacco: Never Assessed Sex and Gender Information Value Date Recorded Sex Assigned at Not on file Gender Identity Female 03/04/2020 7:29 EDT Sexual Orientation Not on file documented as of this encounter Discharge Disposition Disposition Code Departure Means Destination Home or Self Jail documented in this encounter Plan of Treatment Not on file documented as of this encounter Visit Diagnoses Not on filedocumented in this encounter Care Teams Insulation Worker Furnace Installer Relationship Specialty Start Date End Date Maya Burden MD [address] [place] [address] [place] [address] PCP - General 10/02/11 11/08/19 documented as of this encounter
--- OUTSIDE RECORDS SUMMARY | 2024-02-29 01:28 | XMS_ITS | Encounter Summary ---
Author Organization [facility] Address [address] [place] [address] Care Team Providers Care Patent Legal Assistant Name Role Phone Navid Avendaño MD Primary Care Provider [phone] Encounter Details Date Type Department Care Team (Late st Contact Info) Description 02/26/2020 Lab Requisition [facility] Pathology & Laboratory Medicine - [address] [address] Outr Resulting Lab, Provider Social History Tobacco Use Types Packs/Day Years Used Date Smoking Tobacco: Never Assessed Interpersonal Safety Answer Date Record ed Physically Hurt Never 02/04/2020 Verbally Threaten Not on file 02/04/2020 Sex and Gender Information Value Date Recorded Sex Assigned at Not on file Gender Identity Female 03/04/2020 7:29 EDT Sexual Orientation Not on file documented as of this encounter Plan of Treatment Not on file documented as of this encounter Procedures Procedure Name Priority Date/Time Associated Diagnosis Comments RHEUMATOID FACTOR Routine 02/26/2020 12: 05 EDT ANTI NUCLEAR AB (LATRELL), IFA Routine 02/26/2020 12:05 EDT documented in this encounter Results * RHEUMATOID FACTOR (02/26/2020 12:05 EDT) Rheumatoid Factor <8.6 <12.0 IU/mL 02/26/2020 21:25 EDT [facility] Blood VENOUS BLOOD / Unknown 02/26/2020 12:05 EDT 02/26/2020 21:12 EDT Provider Outr Resulting Lab CHEMISTRY & BLOOD GAS ORDERABLES Performing Organization Address [facility] de Phone Number [facility] [address] [place] [address] * (ABNORMAL) ANTI NUCLEAR AB (LATRELL), IFA (02/26/2020 12:05 EDT) LATRELL Interpretation Positive(A) Negative 02/27/2020 13:44 EDT [facility] Comment: For titers greater than or equal to 1:160 (except the centromere and nucleolar patterns) it is recommended that specific follow-up autoantibody testing ??(such as for dsDNA and Extractable Nuclear Antigens) be performed on all diffuse and/or speckled patterns NOTE: For add-on testing dsDNA is stable for 7 days refrigerated while Extractable Nuclear Antigens are only stable for 48 hours refrigerated. LATRELL Titer and Pattern 1 1:160 Homogeneous 02/27/2020 13:44 EDT [facility] Blood VENOUS BLOOD / Unknown 02/26/2020 12:05 EDT 02/26/2020 21:12 EDT Narrative [facility] - 02/27/2020 13:44 EDT Results were obtained with the INOVA NOVA Lite HEp-2 LATRELL Kit by indirect immunofluorescence. Provider Outr Resulting Lab IMMUNOLOGY A ND SEROLOGY ORDERABLES Performing Organization Address [facility] Co de Phone Number [facility] [address] [place] [address] documented in this encounter Visit Diagnoses Not on filedocumented in this encounter Care Teams Patent Legal Assistant Relationship Specialty Start Date End Date Navid Avendaño MD [address] [address] PCP - General 11/09/19 documented as of this encounter
--- OUTSIDE RECORDS SUMMARY | 2024-02-29 01:28 | XMS_ITS | Continuity of Care Document ---
Author Organization [facility] Address [address] [place] [address] Care Team Providers Care Testing Engineer Name Role Phone Navid Avendaño Primary Care Physician Encounter [facility] [id number] Date(s): 09/06/23 - 09/06/23 [facility] [address] [place] [address] Encounter Diagnosis LUAN (obstructive sleep apnea)(Discharge Diagnosis) - 09/02/23 PLMD (periodic limb movement disorder)(Discharge Diagnosis) - 09/02/23 Obstructive sleep apnea (adult) (pediatric)(Final) - Periodic limb movement disorder(Final) - Discharge Disposition: Home or Self Care Attending Physician: Rabia Covington NP Allergies, Adverse Reactions, Alerts Substance Reaction Severity Status codeine Unknown Active lidocaine Unknown Active Assessment and Plan Extracted from: Title:Clinic - Office Visit Note Author:Peña Covington NP Date:09/06/23 1.??LUAN (obstructive sleep a pnea)??G47.33 LUAN with an AHI of 62/hr. She is using APAP 11-16 cm, there was no compliance available for review today but she has been asked to bring in her SD card for a download at her earliest convenience. She reports good compliance and that she continues to feel she sleeps much better with CPAP. She had some questions about how often parts need to be replaced so I reviewed that with her. He/She is advised to keep up with the routine maintenance of the machine and to clean/replace parts as needed. As long as her compliance looks good I will see her back in one year. He/She is asked to call our office for any sleep related questions or concerns. I provided greater than 30 minutes in the care of this patient, more than half the time was spent in [id number] counseling. 2.??PLMD (periodic limb movement disorder)??G47.61 PLMi 42.8/hr, PLMai 15.1/hr, during her titration study in 2012. She cannot tolerate any form of oral iron. She is taking gabapentin 300 mg QHS and ??says this is working great. She is not aware of any RLS symptoms since she has been taking this. She will continue the same. Future Appointments Medications !-Bactroban 2% topical cream 1 brodie, [...] recent to oldest [Reference Range]: 1 Weight 99.79 kg (09/06/23 10:19 AM) Weight Measured (lbs) 219.999 lb (09/06/23 10:19 AM) Weight Dosing 99.790 kg (09/06/23 10:19 AM) Height 153 cm (09/06/23 10:19 AM) Height/Length Measured (inches) 60.24 in ch (09/06/23 10:19 AM) BSA Measured 2.06 m2 (09/06/23 10:19 AM) Body Mass Index 42.63 kg/m2 (09/06/23 10:19 AM) Social History Social History Type Response Tobacco Never tobacco user T obacco Use:. Sex Female Note * Yary Ceballos M: PERFORM Event Display: Progress Note - Specialties/Departments Authored Date: [id number] Physician Outpatient Note * Rabia Covington POT FISHER: PERFORM Event Display: Office Clinic Note Physician Authored Date: [id number] JENNIFER SANTIZO :1945 Age:78 years Sex:Female Visit Date:09/06/2023 Primary Care Physician: Rabia Covington NP History of Present Illness Jennifer Santizo has a telehealth visit for PLMD and LUAN follow-up.??She has given consent to have a telehealth visit. Patient is at home, provider is in the office. ?? Jennifer was last seen by me on 09/07/2022. Jennifer has a history of HTN, depression, obesity, DM, hypothyroidism, PLMD and LUAN. PSG 01/18/2006 at [facility] AHI 62/hr, 02 chiara 80%, no PLMS. ?? Titration study at [facility] 04/07/2013 (BMI 46.1), CPAP 13 cm optimal including in supine REM sleep. PLMi42.8/hr, PLMai 15.1/hr, CPAP 13-15 cm recommended. ?? At last visit she was using CPAP 13-16 cm (05/03 nights)??and taking gabapentin 300 mg with improvement in RLS. Excellent compliance and reduction in AHI. ?? Jennifer tell me that things are going well with her CPAP. She using it QHS. She says she is running out of water every night despite turning the humidity down to 2 so she has refill the chamber when she wakes up at night. She goes to bed at 11 pm and falls asleep in 5 minutes. She wakes 2/night to urinate and can get right back to sleep. She gets up at 8-9 am to start her day. She is not napping but at times will dozeoff while watching TV in the evening. She is occasionally snoring with CPAP but that is only when her mask is leaking. She is not waking choking or gasping. She is not having morning headaches or nocturnal reflux. She has occasional night sweats when her sugar is low. She says she sleeps much better with her CPAP and couldn't do without it. She is getting her supplies as needed from [employer]. The CPAP pressure feels good. She says it is set at 11-16 cm because when it was 13 cm it felt too strong. She uses a FFM and tolerates this well and changes the cushion when it starts to leak. She is taking gabapentin QHS. She is not having any RLS since taking this medication. She had questions about how often she needs to replace her hose. ? ESS today COMPLIANCE DATA: Not available for review at the time of her appointment. Physical Exam Vitals & Measurements HT:??153??cm?? WT:??99.79??kg?? BMI:??42.63?? BSA:??2.06?? Clinic Assessment/Plan 1.??LUAN (obstructive sleep apnea)??G47.33 LUAN with an AHI of 62/hr. She is using APAP 11-16 cm, there was no compliance available for review today but she has been asked to bring in her SD card for a download at her earliest convenience. Verónicaorts good compliance and that she continues to feel she sleeps much better with CPAP. She had some questions about how often parts need to be replaced so I reviewed that with her. He/She is advised to keep up with the routine maintenance of the machine and to clean/replace parts as needed. As long as her compliance looks good I will see her back in one year. He/She is asked to call our office for any sleep related questions or concerns. I provided greater than 30 minutes in the care of this patient, more than half the time was spent in [id number] counseling. 2.??PLMD (periodic limb movement disorder)??G47.61 PLMi 42.8/hr, PLMai 15.1/hr, during her titration study in 2012. She cannot tolerate any form of oral iron. She is taking gabapentin 300 mg QHS and ??says this is working great. She is not aware ofany RLS symptoms since she has been taking this. She will continue the same. Problem List/Past Medical History Ongoing Avila's esophagus Depressive disorder Diabetes mellitus due to underlying condition with diabetic chronic kidney disease Hyperlipidemia Hypertensive disorder Hypothyroidism Malignant neoplasm of left breast with no evidence of primary tumor Morbid obesity LUAN (obstructive sleep apnea) PLMD (periodic limb movement disorder) Polyp of colon Shoulder pain Historical No qualifying data Medications What How Much When Instructions Unchanged cholecalciferol (Vitamin D3 50 mcg (2000 intl units) oraltablet, chewable) 1 tab Oral (given by mouth) Every day Unchanged gabapentin (gabapentin 300 mg oral capsule) 1 Capsules Oral (given by mouth) Every night at bedtime Unchanged ibuprofen (ibuprofen 200 mg oral capsule) 2 Capsules Oral (given by mouth) Every 4 hours as needed for as needed for pain Unchanged levothyroxine (levothyroxine 75 mcg (0.075 mg) oral capsule) 1 Capsules Oral (given by mouth) Every day Unchanged lisinopril (lisinopril 10 mg oral tablet) 1 tab Oral (given by mouth) Every day Unchanged metFORMIN (metFORMIN 500 mg oral tablet) 1 tab Oral (given by mouth) 2 times a day Unchanged multivitamin with minerals (Centrum Silver) Unchanged mupirocin topical (!-Bactroban 2% topical cream) 1 Application Topical (on the skin) 3 times a day Unchanged omeprazole (omeprazole 20 mg oral delayed release capsule) 1 Capsules Oral (given by mouth) Every day Unchanged pravastatin (pravastatin 40 mg oral tablet) 1 tab Oral (given by mouth) Every day Unchanged sertraline (sertraline 50 mg oral tablet) 1 tab Oral (given by mouth) Every day Unchanged vitamin E Allergies codeine lidocaine Social History Electronic Cigarette/Vaping Electronic Cigarette Use: Never. Tobacco Never tobacco user Tobacco Use:. Electronically Signed on 09/06/23 10:41 AM Rabia Covington POT FISHER Patient Care team information Care Team Personnel Name: Rabia Covington NP Position: Physician Member Role: Nurse Practitioner Address: Address: [address] [place] [address] [place], [place] [address] Name: Navid Avendaño MD Position: No Access Member Role: Primary Care Physician Address: Address: [address] [place], [place] [address]
--- OUTSIDE RECORDS SUMMARY | 2024-02-29 01:28 | XMS_ITS | Encounter Summary ---
Author Organization [facility] Address [address] [place] [address] Care Team Providers Care Pre Owned Sales Manager Name Role Phone Maya Burden MD Primary Care Provider [phone] Encounter Details Date Type Department Care Team (Latest Contact Info) Description 07/04/2018 12:10 EST - 07/04/2018 23:59 EST Hospital Encounter [address] [address] Unknown, Provider, Discharge Disposition: Home or Self Care Social History Tobacco Use Types Packs/Day Years Used Date Smoking Tobacco: Never Assessed Sex and Gender Information Value Date Recorded Sex Assigned at Not on file Gender Identity Female 03/04/2020 7:29 EDT Sexual Orientation Not on file documented as of this encounter Discharge Disposition Disposition Code Departure Means Destination Home or Self Skilled Nursing documented in this encounter Plan of Treatment Not on file documented as of this encounter Visit Diagnoses Not on filedocumented in this encounter Care Teams Pre Owned Sales Manager Relationship Specialty Start Date End Date Maya Burden MD [address] [place] [address] [place] [address] PCP - General 10/02/11 11/08/19 documented as of this encounter
--- OUTSIDE RECORDS SUMMARY | 2024-02-29 01:28 | XMS_ITS | Encounter Summary ---
Author Organization [facility] Address [facility] [address] [place] [address] Care Team Providers Care Customer Account Representative Name Role Phone Navid Avendaño MD Primary Care Provider [phone] Encounter Details Date Type Department Care Team (Latest Contact Info) Description 11/15/2023 Travel Social History Tobacco Use Types Packs/Day Years [...] Encounters Date Type Department Care Team (Late st Contact Info) Description 03/21/2024 2:30 PM EDT Office Visit Hematology/Oncology at [address] [phone] Edgar Carreon MD [facility] [place] [address] Kadie Gaming APRN [facility] [place] [address] 05/15/2024 3:30 PM EST Office Visit Radiation Oncology at [address] [phone] Patsy Shelton MD [facility] [address] documented as of this encounter Visit Diagnoses Not on filedocumented in this encounter Care Teams Customer Account Representative Relationship Specialty Start Date End Date Navid Avendaño MD [address] [place] [address] PCP - General Family Medicine 01/24/19 documented as of this encounter
--- OUTSIDE RECORDS SUMMARY | 2024-02-29 01:28 | XMS_ITS | Encounter Summary ---
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 Social History Tobacco Use Types Packs/Day Years [...] 2:30 PM EDT Office Visit Hematology/Oncology at [address] [phone] Edgar Carreon MD [facility] [place] [address] Kadie Gaming APRN [facility] [place] [address] 05/15/2024 3:30 PM EST Office Visit Radiation Oncology at [address] [phone] Patsy Shelton MD [facility] [place] [address] documented as of this encounter Visit Diagnoses Diagnosis 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
--- OUTSIDE RECORDS SUMMARY | 2024-02-29 01:28 | XMS_ITS | Encounter Summary ---
Author Organization [facility] [place] [address] Care Team Providers Care Cpc Coder Name Role Phone Navid Avendaño MD Primary Care Provider [phone] Encounter Details Date Type Department Care Team (Late Contact Info) Description 09/27/2023 Telephone Radiation Oncology at [address] [address] Celeste Flynn RN Social History Tobacco Use Types Packs/Day Years Used Date Smoking Tobacco: Never Smokeless Tobacco: Never Alcohol Use Standard Drinks/Week Comments No 0 (1 standard drink = 0.6 oz pur e alcohol) Sex and Gender Information Value Date Recorded Sex Assigned at Not on file Gender Identity Not on file Sexual Orientation Not on file documented as of this encounter Miscellaneous Notes * Telephone Encounter - Celeste Flynn RN - 09/27/2023 1:56 PM EDT Background: Patient No show for scheduled appointment with Dr. Shelton today. Telephone call to patient. She states that she told whoever called her last Wednesday to confirm appointment that she wanted to cancel it. She would like to reschedule. Dr. Shelton updated verbally. Plan: Will ask [facility] to reschedule. documented in this encounter Plan of Treatment Upcoming Encounters Date Type Department Care Team (Late Contact Info) Description 03/21/2024 2:30 PM EDT Office Visit Hematology/Oncology at [address] [address] Edgar Carreon MD [facility] [place] [address] Kadie Gaming APRN [facility] [place] [place] [address] 05/15/2024 3:30 PM EST Office Visit Radiation Oncology at [address] [address] Patsy Shelton MD [facility] [place] [place] [address] documented as of this encounter Visit Diagnoses Not on filedocumented in this encounter Care Teams Cpc Coder Relationship Specialty Start Date End Date Navid Avendaño MD [address] [place] [address] PCP - General Family Medicine 01/24/19 documented as of this encounter
--- OUTSIDE RECORDS SUMMARY | 2024-02-29 01:28 | XMS_ITS | Encounter Summary ---
Author Organization [facility] Address [address] [place] [address] Care Team Providers Care Freight Adjuster Name Role Phone Maya Burden MD Primary Care Provider [phone] Encounter Details Date Type Department Care Team (Late st Contact Info) Description 07/04/2018 Results Only [facility] [phone] Lucero Albarado, [address] [place], [place] [id number] Social History Tobacco Use Types Packs/Day Years [...] Date/Time Associated Diagnosis Comments SURGICAL PATHOLOGY Routine 07/04/2018 15 :40 EST documented in this encounter Results * SURGICAL PATHOLOGY (07/04/2018 15:40 EST) Pathology Report: SURGICAL PATHOLOGY REPORT Reports generated via electronic interface contain original data; however they are lacking the format of the original report. Caution should be taken when reading/interpreting unformatted reports. Name: ? JENNIFER SANTIZO ? Accession #: ? [id number] ? : ? 1945 (Age: 73) ??F ? Collect Date: ? 07/04/2018 ? Location: ? [facility] ? Receive Date: ? 07/06/2018 ? Provider: LUCERO ALBARADO DO Copy to: CELIA CAICEDO MD ? Final Pathologic Diagnosis: SKIN OF NASAL TIP, RIGHT, SHAVE BIOPSY: - Actinic keratosis. - Chronic folliculitis and perifolliculitis. Microscopic Description: The stratum corneum is thickened by orthohyperkeratosis with foci of parakeratosis. ??The epidermis is focally thickened with elongate and bulbous rete ridges. ??The basal keratinocytes show a variable degree of atypia including nuclear enlargement, dispolarity, and hyperchromasia. ??The dermis is marked by solar elastosis, vascular ectasia and a lymphohistiocytic infiltrate. Centrally, there is a moderately dense perifollicular infiltrate composed of lymphocytes, histiocytes, and rare multinucleate giant cells. ??Deeper sections show similar features. ??(Dr. Coombs)/[facility] Document reviewed and electronically signed by: CHAKA COOMBS MD Report ??Date: 07/07/2018 16:09 By the signature above, the attending physician certifies that he/she has personally conducted a gross and/or microscopic examination of the described specimens and rendered or confirmed the above diagnosis. Specimen(s) Received: Right nasal tip Clinical History: History skin cancer; please fax report to [phone] Gross Description: ? Received in formalin labelled with proper patient identification (initials B, J) and R nasal tip are two pieces of a fragmented shave biopsy of patel-marie pearly skin (reconstructed 0.5 x 0.5 x 0.1 cm). The specimens are inked and submitted entirely in 1. CURTIS Rodriguez ([facility]) 07/06/2018 3:52 PM End of Report [facility] 07/04/2018 15:4 0 EST 07/06/2018 15:40 EST Lucero Albarado DO PATHOLOGY ORDER LUIS ENRIQUE [facility] [address] [place] [address] documented in this encounter Visit Diagnoses Not on filedocumented in this encounter Care Teams Freight Adjuster Relationship Specialty Start Date End Date Maya Burden MD [address] [place] [address] [place] [address] PCP - General 10/02/11 11/08/19 documented as of this encounter
--- OUTSIDE RECORDS SUMMARY | 2024-02-29 01:28 | XMS_ITS | Encounter Summary ---
Author Organization [facility] [place] [address] Care Team Providers Care Driver Education Road Instructor Name Role Phone Navid Avendaño MD Primary Care Provider [phone] Encounter Details Date Type Department Care Team (Late Contact Info) Description 08/12/2023 Telephone Hematology/Oncology at [address] [address] Ivonne Pennington Social History Tobacco Use Types Packs/Day Years [...] encounter Miscellaneous Notes * Telephone Encounter - Ivonne Pennington - 08/12/2023 10:58 AM EST Called Myesha she is aware of the day and time of appt with labs prior documented in this encounter Plan of Treatment Upcoming Encounters Date Type Department Care Team (Late Contact Info) Description 03/21/2024 2:30 PM EDT Office Visit Hematology/Oncology at [address] [address] Edgar Carreon MD [facility] [address] [place] [address] Kadie Gaming APRN [facility] [place] [address] 05/15/2024 3:30 PM EST Office Visit Radiation Oncology at [address] [address] Patsy Shelton MD [facility] [place] [address] documented as of this encounter Visit Diagnoses Not on filedocumented in this encounter Care Teams Driver Education Road Instructor Relationship Specialty Start Date End Date Navid Avendaño MD [address] [place], [place] [address] PCP - General Family Medicine 01/24/19 documented as of this encounter
--- OUTSIDE RECORDS SUMMARY | 2024-02-29 01:28 | XMS_ITS | Encounter Summary ---
Author Organization [facility] Address [address] [place] [address] Care Team Providers Care Biblical Studies Professor Name Role Phone Unavailable Primary Care Provider Unavailabl e Encounter Details Date Type Department Care Team (Late st Contact Info) Description 11/09/2008 Orders Only [facility] Laboratory Services - [facility] [address] [place], [place] [id number] Maya Burden MD [facility] [place] [address] Social History Tobacco Use Types Packs/Day Years Used Date Smoking Tobacco: Never Assessed Sex and Gender Information Value Date Recorded Sex Assigned at Not on file Gender Identity Female 03/04/2020 7:29 EDT Sexual Orientation Not on file documented as of this encounter Plan of Treatment Not on file documented as of this encounter Procedures Procedure Name Priority Date/Time Associated Diagnosis Comments HPV DETECTION, HIGH RISK TYPES Routine 11/09/2008 14:44 EDT CYTOPATHOLOGY Routine 11/09/2008 0:00 EDT documented in this encounter Results * HUMAN PAPILLOMA VIRUS DNA TEST (11/09/2008 14:44 EDT) Specimen Description Cervix, ThinPrep vial [facility] Result Negative for HPV types 16, 18, 31, 33, 35, 39, 45, 51, 52, 56, 58, 59, and 68. [facility] Report Status Final 11/20/2008 [facility] 11/09/2008 14:4 4 EDT 11/14/2008 14:44 EDT Maya Burden MD MICROBIOLOGY - GENER AL ORDERABLES [facility] [address] [place] [id number] * CYTOPATHOLOGY (11/09/2008 0:00 EDT) Pathology Report: CYTOPATHOLOGY REPORT ? Reports generated via electronic interface contain original data; ? however they are lacking the format of the original report. ? Caution should be taken when reading/interpreti ng unformatted reports. ? Name: ? JENNIFER SANTIZO ? Accession #: ? [id number] ? : ? 1945 (Age: 63) ??F ?Collect Date: ? 11/09/2008 ? Location: ? [facility] ? Receive Date: ? 11/12/2008 ? Provider: ?MAYA SCHMIDAN MD ? Copy to: ? Specimen/Source: ?Pap Test, Cervix, ThinPrep Imaging System with manual ?? evaluation ? Last Menstrual Period: ? Menstrual/Pregnanc y Status: ? Post Menopausal ? Treatment History: ? Miscellaneous treatment: Endo Bx ? Other: ? HPVDX - HPV testing requested regardless of diagnosis on current ThinPrep Pap ?? test. ? SPECIMEN ADEQUACY ? Satisfactory for Evaluation ? - transformation zone component present ? GENERAL CATEGORIZATION ? Negative for Intraepithelial Lesion or Malignancy ? Document reviewed and electronically signed by: ? Maya Archibald, SCT(ASCP) ? Report Date: ??11/14/2008 08:15 ? End of Report ? [facility] 11/09/2008 11/12/2008 Maya Burden MD PATHOLOGY ORDERABLES Performing Organization Address City/State/[facility] Co de Phone Number [facility] [address] [place] [address] documented in this encounter Visit Diagnoses Not on filedocumented in this encounter
--- OUTSIDE RECORDS SUMMARY | 2024-02-29 01:28 | XMS_ITS | Encounter Summary ---
Author Organization [facility] Address [address] [place] [address] Care Team Providers Care Gut Carrier Name Role Phone Navid Avendaño MD Primary Care Provider [phone] Reason for Visit * Reason Comments Joint Pain * Consult (Routine) - Closed Specialty Diagnoses / Procedures [facility] Referred To Contact Rheumatology Diagnoses Joint pain Navid Avendaño MD [address] [facility] [place] [address] [facility] [place] [place] Rheumatology [address] [place] [address] Referral ID Status Reason Start Date Expiration Date Visits Re quested Visits Authorized [id number] Closed 1 1 Encounter Details Date Type Department Care Team (Late st Contact Info) Description 05/09/2020 14:15 EST Office Visit [facility] Rheumatology [address] [place] [address] Debi Coleman MD [address] [place] [address] [place] [address] LATRELL positive (Primary Dx); Ulnar nerve entrapment, unspecified laterality; Localized, primary osteoarthritis of hand, unspecified laterality Social History Tobacco Use Types Packs/Day Years Used Date Smoking Tobacco: Never Assessed Interpersonal Safety Answer Date Record ed Physically Hurt Never 02/04/2020 Verbally Threaten Not on file 02/04/2020 Sex and Gender Information Value Date Recorded Sex Assigned at Not on file Gender Identity Female 03/04/2020 7:29 EDT Sexual Orientation Not on file documented as of this encounter Progress Notes * Debi Coleman MD - 05/09/2020 1415 EST Due to computer system disruption, additional clinical information for this visit is Scanned NoteSeen in person.. For patients, please refer to guidance in Tremor Video on how to locate information. Generally this information will appear as a scanned documents saved in My Documents activity. documented in this encounter Plan of Treatment Not on file documented as of this encounter Visit Diagnoses Diagnosis LATRELL positive- Primary Other and unspecified nonspecific immunological findings Ulnar nerve entrapment, unspecified laterality Localized, primary osteoarthritis of hand, unspecified laterality documented in this encounter Care Teams Gut Carrier Relationship Specialty Start Date End Date Navid Avendaño MD [address] [place] [address] PCP - General 11/09/19 documented as of this encounter
--- OUTSIDE RECORDS SUMMARY | 2024-02-29 01:28 | XMS_ITS ---
Author Organization [facility] [place] [address] Care Team Providers Care Sas Bi Developer Name Role Phone Navid Avendaño MD Primary Care Provider [phone] Active Problems Problem Noted Date Diagnosed Date Right carpal tunnel syndrome 08/06/2021 Bilateral hand pain 12/31/2020 Arthritis of knee, right 12/31/2020 Cyst of skin 12/31/2020 Depressive disorder 12/31/2020 Hyperlipidemia 12/31/2020 Primary osteoarthritis of both knees 12/31/2020 S/P left mastectomy 12/31/2020 Squamous cell carcinoma of skin of face 01/01/20 21 Ventral hernia 12/31/2020 Anemia, iron deficiency 11/13/2020 Breast cancer, stage 2, left 02/03/2019 Endometrial adenocarcinoma 03/01/2015 Cancer Staging:Clinical: Unsigned Pathologic:FIGO Stage IA- Signed by Anthony Belle MD on 04/23/2015 Morbid obesity with BMI of 40.0-44.9, adult 08/2 02/2015 Anxiety 03/01/2015 Hypothyroidism 03/01/2015 Avila's esophagus 03/01/2015 Sleep apnea 03/01/2015 Adnexal mass 01/31/2015 Actinic keratosis 01/28/2015 Anemia 05/03/2014 Restless legs syndrome 09/28/2013 Essential hypertension 04/28/2013 Diabetes mellitus 12/30/2012 Diverticulitis of colon 06/03/2003 Current Oncology Plans No current plan information found. Past Plans ADULT TREATMENT Plan Name Start Date Discontinue Date Treatment Medications Discontinue Reason Plan Provider Cycles DH BCN AMB ONC BREAST CANCER - DOCEtaxel / CYCLOPHOSPHAMIDE (TC) 02/22/20 19 03/15/2019 cycloPHOSphamide (Cytoxan) in sodium chloride 0.9% 250 mL infusionDOCEtaxeL (Taxotere) in sodium chloride 0.9% 250 mL infusion Not Tolerated Edgar Carreon MD 2 of 4 cycles started Radiation Treatments * No radiation treatments are documented for this patient in [facility]. Treatments may have been administered in another system.
--- OUTSIDE RECORDS SUMMARY | 2024-02-29 01:28 | XMS_ITS | Encounter Summary ---
Author Organization [facility] Address [address] [place] [address] Care Team Providers Care Cemetery Counselor Name Role Phone Maya Burden MD Primary Care Provider [phone] Encounter Details Date Type Department Care Team (Latest Contact Info) Description 12/07/2018 19:46 EDT - 12/07/2018 23:59 EDT Hospital Encounter [address] [address] Unknown, Provider, Discharge Disposition: Home or Self Care Social History Tobacco Use Types Packs/Day Years Used Date Smoking Tobacco: Never Assessed Sex and Gender Information Value Date Recorded Sex Assigned at Not on file Gender Identity Female 03/04/2020 7:29 EDT Sexual Orientation Not on file documented as of this encounter Discharge Disposition Disposition Code Departure Means Destination Home or Self Snf documented in this encounter Plan of Treatment Not on file documented as of this encounter Visit Diagnoses Not on filedocumented in this encounter Care Teams Cemetery Counselor Relationship Specialty Start Date End Date Maya Burden MD [address] [place] [address] [place] [address] PCP - General 10/02/11 11/08/19 documented as of this encounter
--- OUTSIDE RECORDS SUMMARY | 2024-02-29 01:28 | XMS_ITS | Encounter Summary ---
Author Organization [facility] Address [address] [place] [address] Care Team Providers Care Hydraulic Controls Technician Name Role Phone Maya Burden MD Primary Care Provider [phone] Encounter Details Date Type Department Care Team (Late st Contact Info) Description 08/02/2012 Results Only [facility] [phone] Lucero Albarado, [address] [place], [place] [id number] Social History Tobacco Use Types Packs/Day Years [...] Date/Time Associated Diagnosis Comments SURGICAL PATHOLOGY Routine 08/02/2012 20 :05 EST documented in this encounter Results * SURGICAL PATHOLOGY (08/02/2012 20:05 EST) Pathology Report: SURGICAL PATHOLOGY REPORT Reports generated via electronic interface contain original data; however they are lacking the format of the original report. Caution should be taken when reading/interpreti ng unformatted reports. Name: ? JENNIFER SANTIZO ? Accession #: ? [id number] ? : ? 1945 (Age: 67) ??F ? Collect Date: ? 08/02/2012 ? Location: ? [facility] ? Receive Date: ? 08/03/2012 ? Provider: LUCERO ALBARADO DO Copy to: ? Final Pathologic Diagnosis: ? Skin of nasal ala, right, shave biopsy: 1. ??Fragments of skin with reactive epidermal changes and dermal scar. 2. ??No squamous cell carcinoma identified. Microscopic Description: ? Sections consist of several fragmented portions of skin including epidermis and superficial dermis. ??The epidermis shows mild, reactive changes. ??The underlying dermis has fibrosis with a reactive vascular proliferation. (Dr. Coombs)/[facility] Document reviewed and electronically signed by: CHAKA COOMBS MD Report ??Date: 08/05/2012 16:23 By the signature above, the attending physician certifies that he/she has personally conducted a gross and/or microscopic examination of the described specimens and rendered or confirmed the above diagnosis. Specimen(s) Received: ? Right nasal ala Clinical History: ? R nasal ala re-biopsy. History of squamous cell cancer. Post surgical pain at site; clinical diagnosis code: ??239.2 Gross Description: ? Received in formalin labelled Jennifer Santizo are multiple fragments of pink-white tissue measuring 0.6 x 0.2 x 0.2 cm in aggregate. ??The specimens are submitted entirely as block (1) following filtration. (Katie Nguyễn)/[facility] End of Report [facility] 08/02/2012 20:0 5 EST 08/03/2012 20:05 EST Lucero Albarado DO PATHOLOGY ORDER LUIS ENRIQUE Performing Organization Address City/State/[facility] Co de Phone Number [facility] [address] [place] [address] documented in this encounter Visit Diagnoses Not on filedocumented in this encounter Care Teams Hydraulic Controls Technician Relationship Specialty Start Date End Date Maya Burden MD [address] [place] [address] [place] [address] PCP - General 10/02/11 11/08/19 documented as of this encounter
--- OUTSIDE RECORDS SUMMARY | 2024-02-29 01:28 | XMS_ITS | Encounter Summary ---
Author Organization [facility] Address [address] [place] [address] Care Team Providers Care Linux Admin Name Role Phone Maya Gambino MD Primary Care Provider [phone] Encounter Details Date Type Department Care Team (Late st Contact Info) Description 10/01/2014 Results Only [facility] [phone] Sonya Short MD Pending sale to [facility] [facility] [address] [place], [place] [phone] Social History Tobacco Use Types Packs/Day Years [...] Date/Time Associated Diagnosis Comments SURGICAL PATHOLOGY Routine 10/01/2014 18 :15 EDT documented in this encounter Results * SURGICAL PATHOLOGY (10/01/2014 18:15 EDT) Pathology Report: SURGICAL PATHOLOGY REPORT Reports generated via electronic interface contain original data; however they are lacking the format of the original report. Caution should be taken when reading/interpret ing unformatted reports. Name: ? JENNIFER SANTIZO ? Accession #: ? [id number] ? : ? 1945 (Age: 69) ??F ? Collect Date: ? 10/01/2014 ? Location: ? [facility] ? Receive Date: ? 10/01/2014 ? Provider: SONYA SHORT MD Copy to: MAYA GAMBINO MD ? Final Pathologic Diagnosis: GASTROESOPHAGEAL JUNCTION, BIOPSY: - ??Squamocolumnar junction mucosa with histologic features of reflux esophagitis. - ??Negative for intestinal metaplasia; Negative for dysplasia. ?? Document reviewed and electronically signed by: IDA KLEIN MD Report ??Date: 10/02/2014 17:08 By the signature above, the attending physician certifies that he/she has personally conducted a gross and/or microscopic examination of the described specimens and rendered or confirmed the above diagnosis. Specimen(s) Received: GE junction Clinical History: H/O Avila's esophagus; h/o colon adenoma Gross Description: ? Received in formalin labelled with proper patient identification (initials B, J) and GE junction are two pink-patel tissues (0.3 x 0.2 x 0.1 cm and 0.7 x 0.3 x 0.2 cm). Entirely submitted in block 1. Ai Nguyễn 10/02/2014 08:54 AM End of Report [facility] 10/01/2014 18:1 5 EDT 10/01/2014 18:15 EDT Sonya Short MD PATHOLOGY ORDERA BLES [facility] [address] [place] [address] documented in this encounter Visit Diagnoses Not on filedocumented in this encounter Care Teams Linux Admin Relationship Specialty Start Date End Date Maya Gambino MD [address] [place] [address] [place] [address] PCP - General 10/02/11 11/08/19 documented as of this encounter
--- OUTSIDE RECORDS SUMMARY | 2024-02-29 01:28 | XMS_ITS | Encounter Summary ---
Author Organization [facility] Address [address] [place] [address] Care Team Providers Care Ski Topper Name Role Phone Maya Burden MD Primary Care Provider [phone] Encounter Details Date Type Department Care Team (Latest Contact Info) Description 10/01/2014 12:21 EDT - 10/01/2014 23:59 EDT Hospital Encounter [facility] - [address] [address] Unknown, Provider, Discharge Disposition: Home or Self [...] on filedocumented in this encounter Care Teams Ski Topper Relationship Specialty Start Date End Date Maya Burden MD [address] [place] [address] [place] [address] PCP - General 10/02/11 11/08/19 documented as of this encounter
--- OUTSIDE RECORDS SUMMARY | 2024-02-29 01:28 | XMS_ITS | Referral Summary ---
Author Organization [facility] Address [address] [place] [address] Care Team Providers Care Ribbon Cutter Name Role Phone Navid Avendaño MD Primary Care Provider [phone] Social History Tobacco Use Types Packs/Day Years Used Date Smoking Tobacco: Never Assessed Interpersonal Safety Answer Date Record ed Physically Hurt Never 02/04/2020 Verbally Threaten Not on file 02/04/2020 Sex and Gender Information Value Date Recorded Sex Assigned at Not on file Gender Identity Female 03/04/2020 7:29 EDT Sexual Orientation Not on file Plan of Treatment Not on file Care Teams Ribbon Cutter Relationship Specialty Start Date End Date Navid Avendaño MD [address] [place] [address] PCP - General 11/09/19
--- OUTSIDE RECORDS SUMMARY | 2024-02-29 01:28 | XMS_ITS | Encounter Summary ---
Author Organization [facility] Address [address] [place] [address] Care Team Providers Care Rail Maintenance Worker Name Role Phone Maya Burden MD Primary Care Provider [phone] Encounter Details Date Type Department Care Team (Late st Contact Info) Description 10/14/2015 Results Only [facility] [[email or web address] [phone] Joey Moore MD [address] [place] [address] Social History Tobacco Use Types Packs/Day Years Used Date Smoking Tobacco: Never Assessed Sex and Gender Information Value Date Recorded Sex Assigned at Not on file Gender Identity Female 03/04/2020 7:29 EDT Sexual Orientation Not on file documented as of this encounter Plan of Treatment Not on file documented as of this encounter Procedures Procedure Name Priority Date/Time Associated Diagnosis Comments PAP TEST- RESULT ONLY Routine 10/14/2015 0:00 EDT documented in this encounter Results * PAP TEST- RESULT ONLY (10/14/2015 0:00 EDT) Pathology Report: CYTOPATHOLOGY REPORT Reports generated via electronic interface contain original data; however they are lacking the format of the original report. Caution should be taken when reading/interpreti ng unformatted reports. Name: ? JENNIFER SANTIZO ? Accession #: ? [id number] ? : ? 1945 (Age: 70) ??F ?Collect Date: ? 10/14/2015 ? Location: ? [facility] ? Receive Date: ? 10/15/2015 ? Provider: JOEY MOORE MD Copy to: CELIA CAICEDO MD ? Final Report SPECIMEN ADEQUACY ? Satisfactory for Evaluation - assessment of transformation zone component not applicable ( e.g. atrophy, vaginal sample, hysterectomy) GENERAL CATEGORIZATION ? Negative for Intraepithelial Lesion or Malignancy INTERPRETATION ? Reactive cellular changes associated with inflammation present (includes repair). Previous Gynecologic Pathology: Endometrial adenocarcinoma: history of stage 1 Treatment History: Hysterectomy: Robotic 03/2015 s/p Specimen/Source: ??Pap Test, Vagina, ThinPrep Imaging System with manual evaluation Document reviewed and electronically signed by: ? FAHAD CORREIA MD ? Report ??Date: 10/23/2015 12:06 HPV with Pap Test ? Date Ordered: ? 10/23/2015 ? Status: ?? Signed Out ?Date Complete: ? 10/24/2015 ? By: ??System Interface ? Date Reported: ? 10/24/2015 ? Interpretation RESULT: Ordered in error Credit Issued Comments Document reviewed and electronically signed by: ? System Interface ? Report date: 10/24/2015 By the signature above, the attending physician certifies that he/she has personally conducted a gross and/or microscopic examination of the described specimens and rendered or confirmed the above diagnosis. End of Report [facility] 10/14/2015 10/15/2015 Joey Moore MD PATHOLOGY ORDERABLES [facility] [address] [place] [address] documented in this encounter Visit Diagnoses Not on filedocumented in this encounter Care Teams Rail Maintenance Worker Relationship Specialty Start Date End Date Maya Burden MD [address] [place] [address] [place] [address] PCP - General 10/02/11 11/08/19 documented as of this encounter
--- OUTSIDE RECORDS SUMMARY | 2024-02-29 01:28 | XMS_ITS | Encounter Summary ---
Author Organization [facility] Address [address] [place] [address] Care Team Providers Care Car Repairer Helper Name Role Phone Navid Avendaño MD Primary Care Provider [phone] Encounter Details Date Type Department Care Team (Late st Contact Info) Description 04/04/2020 Lab Requisition [facility] Pathology & Laboratory Medicine - [facility] [address] [place] [address] Outr Resulting Lab, Provider Social History Tobacco [...] Procedure Name Priority Date/Time Associated Diagnosis Comments HOLD SST Today 04/04/2020 11:13 EDT SPEP, INCLUDES QUANTITATION OF MONOCLONAL SPIKE Today 04/04/2020 11:13 EDT HAPTOGLOBIN Today 04/04/2020 11:13 EDT documented in this encounter Results * HOLD SST (04/04/2020 11:13 EDT) Hold Hold 04/04/2020 21:45 EDT [facility] Blood VENOUS BLOOD / Unknown 04/04/2020 11:13 EDT 04/04/2020 20:44 EDT Provider Outr Resulting Lab LAB INFO SER VICE AND SUPPORT & PHONE RESULT Performing Organization Address [facility]/ZIP Co de Phone Number [facility] [address] [place] [address] * (ABNORMAL) SPEP, INCLUDES QUANTITATION OF MONOCLONAL SPIKE (04/04/2020 11:13 EDT) Total Protein 6.8 6.3 - 8.2 g/dL 04/05/2020 12:52 EDT [facility] Albumin % 57.9 55.8 - 66.1 % 04/05/2020 12:52 EDT [facility] Alpha-1 % 4.2 2.9 - 4.9 % 04/05/2020 12:52 EDT [facility] Alpha-2 % 11.1 7.1 - 11.8 % 04/05/2020 12:52 EDT [facility] Beta % 14.3(H) 8.4 - 13.1 % 04/05/2020 12:52 EDT [facility] Gamma % 12.5 11.1 - 18.8 % 04/05/2020 12:52 EDT [facility] SPEP Comment No apparent monoclonal protein seen on serum electrophoresis 04/05/2020 12:52 EDT [facility] Comment:See scanned/suppleme ntary report. Blood VENOUS BLOOD / Unknown 04/04/2020 11:13 EDT 04/04/2020 20:44 EDT Provider Outr Resulting Lab CHEMISTRY & BLOOD GAS ORDERABLES [facility] [address] [place] [address] * HAPTOGLOBIN (04/04/2020 11:13 EDT) Haptoglobin 185 32 - 197 mg/dL 04/05/2020 9:18 EDT [facility] Blood VENOUS BLOOD / Unknown 04/04/2020 11:13 EDT 04/04/2020 20:44 EDT Provider Outr Resulting Lab CHEMISTRY & BLOOD GAS ORDERABLES [facility] [address] [place] [address] documented in this encounter Visit Diagnoses Not on filedocumented in this encounter Care Teams Car Repairer Helper Relationship Specialty Start Date End Date Navid Avendaño MD [address] [place] [address] PCP - General 11/09/19 documented as of this encounter
--- OUTSIDE RECORDS SUMMARY | 2024-02-29 01:28 | XMS_ITS | Encounter Summary ---
Author Organization [facility] Address [address] [place] [address] Care Team Providers Care Toy Painter Name Role Phone Navid Avendaño MD Primary Care Provider [phone] Encounter Details Date Type Department Care Team (Late st Contact Info) Description 06/14/2020 Orders Only [facility] [address] [place] [address] Lucy Shin RN Ulnar nerve compression, unspecified laterality (Primary Dx) Social History Tobacco Use Types Packs/Day Years Used Date Smoking Tobacco: Never Assessed Interpersonal Safety Answer Date Record ed Physically Hurt Never 02/04/2020 Verbally Threaten Not on file 02/04/2020 Sex and Gender Information Value Date Recorded Sex Assigned at Not on file Gender Identity Female 03/04/2020 7:29 EDT Sexual Orientation Not on file documented as of this encounter Progress Notes * Lucy Shin RN - 06/14/2020 [address] Yee placed per downtime visit note. documented in this encounter Plan of Treatment Not on file documented as of this encounter Visit Diagnoses Diagnosis Ulnar nerve compression, unspecified laterality- Primary documented in this encounter Care Teams Toy Painter Relationship Specialty Start Date End Date Navid Avendaño MD [address] [place], [place] [id number] PCP - General 11/09/19 documented as of this encounter
--- OUTSIDE RECORDS SUMMARY | 2024-02-29 01:28 | XMS_ITS | Encounter Summary ---
Author Organization [facility] Address [address] [place] [address] Care Team Providers Care Otolaryngology Physician Name Role Phone Unavailable Primary Care Provider Unavailabl e Encounter Details Date Type Department Care Team (Late st Contact Info) Description 12/07/2006 Results Only [facility] [address] [place] [address] Candice Xiong MD [address] [place] [address] [place] [address] Social History Tobacco Use Types Packs/Day Years [...] Date/Time Associated Diagnosis Comments SURGICAL PATHOLOGY Routine 12/07/2006 0:00 EDT documented in this encounter Results * SURGICAL PATHOLOGY (12/07/2006 0:00 EDT) Pathology Report: SURGICAL PATHOLOGY REPORT Reports generated via electronic interface contain original data; however they are lacking the format of the original report. Caution should be taken when reading/interpreti ng unformatted reports. Name: ? JENNIFER SANTIZO ? Accession #: ? [id number] ? : ? 1945 (Age: 61) ??F ? Collect Date: ? 12/07/2006 ? Location: ? [facility] ? Receive Date: ? 12/08/2006 ? Provider: CANDICE XIONG MD Copy to: MARIZA GAMBINO MD ? Final Pathologic Diagnosis: ? Endometrium, biopsy: 1. ?Strips of inactive endometrium. 2. ? Benign endocervical mucosa. Document reviewed and electronically signed by: DENNIS MALDONADO MD Report ??Date: 12/10/2006 15:25 By the signature above, the attending physician certifies that he/she has personally conducted a gross and/or microscopic examination of the described specimens and rendered or confirmed the above diagnosis. Specimen(s) Received: ? Endometrial bx Clinical History: ? Thickening of endometrium; no hormones; LMP: 1999; Gross Description: ? Received in formalin labelled Santizo and endometrial bx is a 1.5 x 1.2 x 0.4 cm aggregate of patel-brown tissue and mucus entirely submitted in one cassette. (Kay[facility] Archuleta[facility] End of Report [facility] 12/07/2006 12/08/2006 15: 28 EDT Candice Xiong MD PATHOLOGY ORDERABLES [facility] [address] [place] [address] documented in this encounter Visit Diagnoses Not on filedocumented in this encounter
--- OUTSIDE RECORDS SUMMARY | 2024-02-29 01:28 | XMS_ITS | Encounter Summary ---
Author Organization [facility] Address [address] [place] [address] Care Team Providers Care Boat Crew Deck Hand Name Role Phone Navid Avendaño MD Primary Care Provider [phone] Encounter Details Date Type Department Care Team (Late st Contact Info) Description 02/28/2020 Lab Requisition [facility] Pathology & Laboratory Medicine - [address] [address] Outr Resulting Lab, Provider Social History Tobacco [...] Procedure Name Priority Date/Time Associated Diagnosis Comments DOUBLE STRANDED DNA ANTIBODY, IGG Routine 02/26/2020 12:05 EDT documented in this encounter Results * (ABNORMAL) ANTI DNA (DOUBLE STRANDED) (02/26/2020 12:05 EDT) Anti-DNA (Double Stranded) 75.3(H) <30.0 IU/mL 02/29/2020 12:[address] [facility] Comment: ? Negative: ??<30.0 IU/mL ? Borderline Positive: ??30.0 - 75.0 IU/mL ? Positive: ??>75.0 IU/mL Results were obtained with the [employer]ite dsDNA SC HOSSEIN assay on the [employer] DSX. Blood VENOUS BLOOD / Unknown 02/26/2020 12:05 EDT 02/28/2020 16:10 EDT Provider Outr Resulting Lab IMMUNOLOGY A ND SEROLOGY ORDERABLES [facility] [address] [place] [address] documented in this encounter Visit Diagnoses Not on filedocumented in this encounter Care Teams Boat Crew Deck Hand Relationship Specialty Start Date End Date Navid Avendaño MD [address] [place] [address] PCP - General 11/09/19 documented as of this encounter
--- OUTSIDE RECORDS SUMMARY | 2024-02-29 01:28 | XMS_ITS | Encounter Summary ---
Author Organization [facility] Address [address] [place] [address] Care Team Providers Care Miller Apprentice Name Role Phone Maya Burden MD Primary Care Provider Encounter Details Date Type Department Care Team (Latest Contact Info) Description 02/07/2015 9:36 EDT - 02/07/2015 23:59 EDT Hospital Encounter [facility] - [address] [address] Unknown, Provider, Discharge Disposition: Home or Self Care Social History Tobacco Use Types Packs/Day Years Used Date Smoking Tobacco: Never Assessed Sex and Gender Information Value Date Recorded Sex Assigned at Not on file Gender Identity Female 03/04/2020 7:29 EDT Sexual Orientation Not on file documented as of this encounter Discharge Disposition Disposition Code Departure Means Destination Home or Self Long Term documented in this encounter Plan of Treatment Not on file documented as of this encounter Visit Diagnoses Not on filedocumented in this encounter Care Teams Miller Apprentice Relationship Specialty Start Date End Date Maya Burden MD [address] [place] [address] [place] [address] PCP - General 10/02/11 11/08/19 documented as of this encounter
--- OUTSIDE RECORDS SUMMARY | 2024-02-29 01:28 | XMS_ITS | Encounter Summary ---
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 Patsy Shelton MD [facility] [place] [address] Unknown None Referral ID Status Reason Start Date Expiration Date Visits Requested Visits Authorized [id number] Authorized Evaluate and Treat Non DH PCP 12/14/2023 06/11/2024 12 12 Reason for Visit * Reason Comments Follow-up Encounter Details Date Type Department Care Team (Latest Contact Info) Description 12/14/2023 3:30 PM EDT TH Visit (TeleHealth) Radiation Oncology at [address] [phone] Patsy Shelton MD [facility] [place] [address] 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 The bone scan & CT of chest are without evidence of cancer. I think the tightness & discomfort on left chest wall is due to lymphedema & scar tissue related to the surgery & radiotherapy. Someone will call you to schedule Physical Therapy consult in [facility] for a light form of massage therapy (called manual lymphatic drainage) to soften & decrease the lymphedema. Prescription for trental (pentoxifylline) sent to [facility]. Take 1 of the tablets 3 times/daywith food. Taking this medicine with 1000 International Units (IU) of vitamin E/day has been shown to soften radiotherapy associated scar tissue & decrease tightness/discomfort. Buy vitamin E capsules of 400 IU strength & take 1 of the capsules 3 times/day. Someone will contact you to schedule followup with me [place] documented in this encounter Progress Notes * Patsy Shelton MD - 12/14/2023 3:30 PM EDT Phone followup to discuss 12/09/23 CT chest result. Myesha & daughter Kadie customer resolution specialist. Subjective: No new c/o. Still w/tightness & discomfort upper L lateral chest, particularly whenstretches arm out when lying down @ night. Decision Making/Plan: Given 12/09/23 CT chest w/o evidence of lesion involving L chest, no evidence of recurrent cancer, I attribute L chest tightness & discomfort to lymphedema & xrt associated fibrosis & recommend PT consult for MLD & trental (pentoxifylline) TID w/vit E 1000 IU/dayfor 6 mos. Rtc May. Patient verbally consents to this telephone visit and understands that this visit may be billed, similar to a clinic office visit. I provided care to the patient today via telephone call. The total time associated with this visit was 20 minutes. I certify spending at least 20 mins in providing care to this patient today as reflected by the following activities: - review of patient's medical record in the chart, including interpretation of imaging, laboratory and pathologic studies referenced above - documenting the outcome of today's visit as above documented in this encounter Plan of Treatment Upcoming Encounters Date Type Department Care Team (Late st Contact Info) Description 03/21/2024 2:30 PM EDT Office Visit Hematology/Oncology at [address] [phone] Edgar Carreon MD [facility] DR HEM[place]Y [place] [address] Kadie Gaming APRN [facility] [place] [address] 05/15/2024 3:30 PM EST Office Visit Radiation Oncology at [address] [phone] Patsy Shelton MD [facility] [place] [address] Scheduled Referrals Name Type Priority Associated Diagnoses Orde r Schedule Referral to Physical Therapy Outpatient Referral Routine 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
--- OUTSIDE RECORDS SUMMARY | 2024-02-29 01:28 | XMS_ITS | Encounter Summary ---
Author Organization [facility] Address [address] [place] [address] Care Team Providers Care Clinical Counselor Name Role Phone Maya Burden MD Primary Care Provider [phone] Encounter Details Date Type Department Care Team (Late st Contact Info) Description 01/27/2012 Results Only [facility] [phone] Lucero Albarado, [address] [place], [place] [id number] Social History Tobacco Use Types Packs/Day Years [...] Date/Time Associated Diagnosis Comments SURGICAL PATHOLOGY Routine 01/27/2012 0:00 EDT documented in this encounter Results * SURGICAL PATHOLOGY (01/27/2012 0:00 EDT) Pathology Report: SURGICAL PATHOLOGY REPORT Reports generated via electronic interface contain original data; however they are lacking the format of the original report. Caution should be taken when reading/interpreting unformatted reports. Name: ? JENNIFER SANTIZO ? Accession #: ? [id number] ? : ? 1945 (Age: 66) ??F ? Collect Date: ? 01/27/2012 ? Location: ? [facility] ? Receive Date: ? 01/28/2012 ? Provider: LUCERO ALBARADO DO Copy to: ? Final Pathologic Diagnosis: ? Skin of nasal tip, shave biopsy: 1. ?Squamous cell carcinoma, well differentiated, invasive. ?- Squamous cell carcinoma extends to base of shave biopsy specimen. Microscopic Description: ? The stratum corneum is thickened by orthohyperkeratosis and parakeratosis. Emanating from the epidermis and extending into the dermis is a proliferation of atypical squamous epithelium. ??The proliferation consists of variably sized, irregular islands associated with dermal desmoplasia. ??The cells have an increased nuclear-cytoplasmic ratio and nuclear pleomorphism. ??Intercellular bridge and keratin hola formation are evident. ?? Document reviewed and electronically signed by: CHAKA LAND MD Report ??Date: 01/29/2012 16:22 By the signature above, the attending physician certifies that he/she has personally conducted a gross and/or microscopic examination of the described specimens and rendered or confirmed the above diagnosis. Specimen(s) Received: ? Nasal tip mass Clinical History: ? Clinical diagnosis code: ??239.2 Gross Description: ? Received in formalin labelled Jennifer Santizo and nasal tip is a 0.7 x 0.7 x 0.3 cm irregular white, focally marie, granular, friable papule. ??Also received is a 0.6 x 0.5 x 0.2 cm aggregate of patel-white, irregular, granular, friable tissue fragment. ??The specimen is entirely submitted as (A1) papule bisected, and (A2) aggregate. ??(Nuria Chadwick)/[facility] End of Report [facility] 01/27/2012 01/28/2012 16: 12 EDT Lucero Albarado DO PATHOLOGY ORDER LUIS ENRIQUE [facility] [address] [place] [address] documented in this encounter Visit Diagnoses Not on filedocumented in this encounter Care Teams Clinical Counselor Relationship Specialty Start Date End Date Maya Burden MD [address] [place] [address] [place] [address] PCP - General 10/02/11 11/08/19 documented as of this encounter
--- OUTSIDE RECORDS SUMMARY | 2024-02-29 01:28 | XMS_ITS | Encounter Summary ---
Author Organization [facility] Address [address] [place] [address] Care Team Providers Care Bar Machine Operator Production Name Role Phone Unavailable Primary Care Provider Unavailabl e Encounter Details Date Type Department Care Team (Late st Contact Info) Description 08/11/2006 Results Only [facility] - Map conversion [address] [place] [address] Irving Wolfe MD [address] [place] [phone] Social History Tobacco Use Types Packs/Day Years [...] Date/Time Associated Diagnosis Comments SURGICAL PATHOLOGY Routine 08/11/2006 0:00 EST documented in this encounter Results * SURGICAL PATHOLOGY (08/11/2006 0:00 EST) Pathology Report: SURGICAL PATHOLOGY REPORT Reports generated via electronic interface contain original data; however they are lacking the format of the original report. Caution should be taken when reading/interpreti ng unformatted reports. Name: ? JENNIFER SANTIZO ? Accession #: ? [id number] ? : ? 1945 (Age: 61) ??F ? Collect Date: ? 08/11/2006 ? Location: ? [facility] ? Receive Date: ? 08/11/2006 ? Provider: HEAVEN WOLFE MD Copy to: MARIZA GAMBINO MD ? Final Pathologic Diagnosis: ? Colon, sigmoid at 20 cm, biopsies: - Colonic mucosa with focal acute cryptitis and surface hyperplastic changes. See comment. Comment: ? Histologic examination demonstrates colonic mucosa with a moderate degree of inflammation within the lamina propria. ??In addition, there is a focus of acute cryptitis. ??The histological features are those of an acute colitis, most compatible with an acute self-limited colitis or infectious origin. ??There is no evidence of chronicity, thus an idiopathic inflammatory bowel disease is less likely. ??Lastly, in a patient with a history of diverticulitis, this may represent inflammation adjacent to a diverticulum. ??(Dr. Alonso)/[facility] Document reviewed and electronically signed by: ANNE HANNAH MD Report ??Date: 08/13/2006 15:07 By the signature above, the attending physician certifies that he/she has personally conducted a gross and/or microscopic examination of the described specimens and rendered or confirmed the above diagnosis. Specimen(s) Received: ? Sigmoid bx at 20 cm Clinical History: ? Personal hx colon polyps, hx diverticulosis with diverticulitis, ? inflamed mucosa @ 20 cm secondary to prep or diverticulitis Gross Description: ? Received in Hollande's fixative labelled Santizo and bx sigmoid at 20 cm are two irregular portions of patel-brown soft tissue averaging 0.2 x 0.2 x 0.1 cm. ??The specimen is submitted in toto in one cassette. ??(Nuria Walton)/[facility] End of Report [facility] 08/11/2006 08/11/2006 15: 12 EST Irving Wolfe MD PATHOLOGY ORDERABLES [facility] [address] [place] [address] documented in this encounter Visit Diagnoses Not on filedocumented in this encounter
--- OUTSIDE RECORDS SUMMARY | 2024-02-29 01:28 | XMS_ITS | Encounter Summary ---
Author Organization Counts Include [facility] Address [facility] [address] [address] Care Team Providers Care Rn Vascular Name Role Phone Navid Avendaño MD Primary Care Provider [phone] Reason for Referral * Diagnostic Test (Routine) - New Request Specialty Diagnoses / Procedures Referred By Moses damian Referred To Contact Radiology Diagnoses S/P radiotherapy Procedures CT Chest w Contrast Patsy Shelton MD [facility] [place] [address] Referral ID Status Reason Start Date Expiration Date Visits Requested Visits Authorized [id number] New Request Specialty Service Requested 12/07/2023 06/07/2025 1 1 Reason for Visit * Reason Comments Follow-up Encounter Details Date Type Department Care Team (Late st Contact Info) Description 12/07/2023 12:00 PM EDT TH Visit (TeleHealth) Radiation Oncology at [address] [phone] Patsy Shelton MD [facility] [place] [address] S/P radiotherapy Social History Tobacco Use Types Packs/Day Years Used Date Smoking Tobacco: Never Smokeless Tobacco: Never Alcohol Use Standard Drinks/Week Comments No 0 (1 standard drink = 0.6 oz pur e alcohol) Sex and Gender Information Value Date Recorded Sex Assigned at Not on file Gender Identity Not on file Sexual Orientation Not on file documented as of this encounter Progress Notes * Patsy Shelton MD - 12/07/2023 12:00 PM EDT Phone encounter to discuss bone scan result. Myesha & daughter Kadie (tel [phone]) on conference call. Informed that bone scan neg for met dz & that I think L chest wall discomfort due to scar tissue from surgery & xrt. Daughter Kadie asked about obtaining CT chest for further eval & I think this is reasonable. S: She has postponed further PT w/Jaylon Carrillo, PT @ [facility] until after further evaluation of L chest wall discomfort. The PT by Mr. Carrillo is for overall body/muscle aches. Decision Making/Plan: CT chest @ [facility]. Phone followup after CT to discuss result. If CT w/o other explanation for L chest wall discomfort, will likely refer to PT for MLD for lymphedema L chest wall & give Rx for trental to be taken w/vit E. Patient verbally consents to this telephone visit and understands that this visit may be billed, similar to a clinic office visit. I provided care to the patient today via telephone call. The total time associated with this visit was 10 minutes. documented in this encounter Plan of Treatment Upcoming Encounters Date Type Department Care Team (Late st Contact Info) Description 03/21/2024 2:30 PM EDT Office Visit Hematology/Oncology at [address] [phone] Edgar Carreon MD [facility] DR HEMATOLOGY [place] [address] Kadie Gaming APRN [facility] [place] [address] 05/15/2024 3:30 PM EST Office Visit Radiation Oncology at [address] [phone] Patsy Shelton MD [facility] [place] [address] Scheduled Orders Name Type Priority Associated Diagnoses Orde r Schedule CT Chest w Contrast Imaging Routine S/P radiotherapy Expected: 12/08/2023, Expires: 06/08/2024 Creatinine Lab Routine S/P radiotherapy Expected: 12/08/2023, Expires: 06/08/2024 documented as of this encounter Visit Diagnoses Diagnosis S/P radiotherapy Convalescence following radiotherapy documented in this encounter Care Teams Rn Vascular Relationship Specialty Start Date End Date Navid Avendaño MD [facility] [address] [address] PCP - General Family Medicine 01/24/19 documented as of this encounter
--- OUTSIDE RECORDS SUMMARY | 2024-02-29 01:28 | XMS_ITS | Encounter Summary ---
Author Organization [facility] [address] [place] [address] Care Team Providers Care Instrument Technologist Name Role Phone Navid Avendaño MD Primary Care Provider [phone] Encounter Details Date Type Department Care Team (Late Contact Info) Description 11/30/2023 Ancillary Procedure [place] [address] Navid Avendaño MD [address] [place] [address] Social History Tobacco Use Types Packs/Day Years [...] 2:30 PM EDT Office Visit Hematology/Oncology at [address] [phone] Edgar Carreon MD [facility] DR HEMATOLOGY [place] [address] Kadie Gaming APRN [facility] [place] [address] 05/15/2024 3:30 PM EST Office Visit Radiation Oncology at [address] [phone] Patsy Shelton MD [facility] DR [place] [address] documented as of this encounter Procedures Procedure Name Priority Date/Time Associated Diagnosis Comments FILM LIBRARY STORAGE ONLY NUCLEAR MEDICINE Routine 11/30/2023 12:00 AM EDT documented in this encounter Results * Film Library- Storage Only nuclear medicine (11/30/2023 12:00 AM EDT) Narrative [facility] - 12/01/2023 10:07 AM EDT This exam is auto-finalizing. It's purpose is for storage only. Navid Avendaño MD IMG FILM LIBRARY ORDERABLES Performing Organization Address City/State/[facility] Co de Phone Number [place], [place] documented in this encounter Visit Diagnoses Not on filedocumented in this encounter Care Teams Instrument Technologist Relationship Specialty Start Date End Date Navid Avendaño MD [address] [place] [address] PCP - General Family Medicine 01/24/19 documented as of this encounter
--- OUTSIDE RECORDS SUMMARY | 2024-02-29 01:28 | XMS_ITS | Clinical Summary ---
Author Organization [facility] Address [facility] [address] [place] [address] Care Team Providers Care Shoulder Pad Molder Name Role Phone Navid Avendaño MD Primary Care Provider [phone] Allergies Active Allergy Reactions Criticality Noted Date Comments Adhesive Tape Medium 12/11/2020 Other reaction(s): blistering Atorvastatin Calcium Medium CIS - myalgias Docetaxel 03/15/2019 Syncope, 02 desaturation, tachycardia, hypotension. Medications Medication Sig Dispensed Refills Start Date End Date Status omeprazole (PRILOSEC) 20 mg capsule Take by mouth 2 times daily. 04/08/2006 Active multivitamin (DAILY MULTIPLE) tablet 04/08/2006 Active acetaminophen (TYLENOL) 500 mg Tablet As needed 12/24/2012 Active aspirin 81 mg Tablet, Delayed Release (E.C.) Take 81 mg by mouth daily. 12/24/2012 Active lisinopril (PRINIVIL;ZESTRIL) 10 mg Tablet Daily 05/02/2013 Active metFORMIN (GLUCOPHAGE) 500 mg Tablet Twice a day 05/03/2014 Active senna-docusate (PERICOLACE) 8.6-50 mg Tablet Take 1 tablet by mouth daily. 60 tablet 0 03/29/2015 Active Ca carb-Ca gluc-Mg ox-Mg gluco 500 mg calcium -250 mg Tablet Take by mouth. Active gabapentin (Neurontin) 300 mg Capsule Take 300 mg by mouth nightly. Active celecoxib (CeleBREX) 100 mg Capsule Take 100 mg by mouth daily. Active furosemide (Lasix) 20 mg Tablet Take 20 mg by mouth daily. 10/22/2021 Active levothyroxine (Synthroid) 88 mcg Tablet Take 100 mcg by mouth daily. Two tabs on sundays01/23/2022 Active pravastatin (PRAVACHOL) 40 mg Tablet Take 40 mg by mouth daily. 01/12/2022 Active venlafaxine (Effexor) 37.5 mg tabletIndications:H ormone receptor positive malignant neoplasm of left breast Take 1 tablet by mouth 3 times daily. 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 Sleep apnea 03/01/2015 Adnexal mass 01/31/2015 Actinic keratosis 01/28/2015 Anemia 05/03/2014 Restless legs syndrome 09/28/2013 Essential hypertension 04/28/2013 Diabetes mellitus 12/30/2012 Diverticulitis of colon 06/03/2003 Encounters Date Type Department Care Team Description 12/14/2023 3:30 PM EDT TH Visit (TeleHealth) Radiation Oncology at [address] [phone] Patsy Shelton MD 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; 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 12/07/2023 12:00 PM EDT TH Visit (TeleHealth) Radiation Oncology at [address] [phone] Patsy Shelton MD S/P radiotherapy 11/30/2023 Ancillary Procedure Radiology Library at [facility] [place] [address] Navid Avendaño MD from Last 3 Months Family History Medical History Relation Comments Type 2 Diabetes Brother 1 Hypertension Brother 2 Esophageal Cancer Brother 3 Hyperlipidemia Brother 4 Hyperlipidemia Mother Hypertension Mother Stomach Cancer Mother Type 2 Diabetes Mother Hypertension Sister 1 Hyperlipidemia Sister 2 Relation Status Comments Brother 1 Brother 2 Brother 3 Brother 4 Mother Sister 1 Sister 2 Social History Tobacco Use Types Packs/Day Years Used Date Smoking Tobacco: Never Smokeless Tobacco: Never Alcohol Use Standard Drinks/Week Comments No 0 (1 standard drink = 0.6 oz pur e alcohol) Sex and Gender Information Value Date Recorded Sex Assigned at Not on file Gender Identity Not on file Sexual Orientation Not on file Last Filed Vital Signs Vital Sign Reading Time Taken Comments Blood Pressure 178/71 08/17/2023 10:22 AM EST Pulse 94 11/15/2023 2:49 PM EDT Temperature 37 ??C (98.6 ??F) 11/15/2023 2:4 9 PM EDT Respiratory Rate 16 11/15/2023 2:49 PM EDT Oxygen Saturation 96% 11/15/2023 2:4 9 PM EDT Inhaled Oxygen Concentration - - Weight 100.2 kg (220 lb 12. 8 oz) 11/15/2023 2:49 PM EDT with shoes Height 153 cm (5' 0.24) 08/17/2023 10: 22 AM EST Body Mass Index 42.78 08/17/2023 10:22 AM EST Plan of Treatment Upcoming Encounters Date Type Department Care Team (Late st Contact Info) Description 03/21/2024 2:30 PM EDT Office Visit Hematology/Oncology at [address] [phone] Edgar Carreon MD [facility] [place] [address] Kadie Gaming APRN [facility] [place] [address] 05/15/2024 3:30 PM EST Office Visit Radiation Oncology at [address] [phone] Patsy Shelton MD [facility] [place] [address] Health Maintenance Due Date Last Done Comments Pneumoccocal Vaccine: 65+ (1 of 2 - PCV) 1952 DM Hemoglobin A1c 1956 DM Opthalmology Exam 1956 DM Urine Microalbumin yearly 1956 Hepatitis C Screening 1964 Tdap adult 1965 Tetanus vaccine 1965 Zoster vaccine (1 of 2) 1996 Bone Density Scan 2011 DM Creatinine yearly 03/29/2016 03/29/2015, 03/01/20 15 Covid-19 Vaccine ( season) 2023, 09/03/2020 Influenza (Flu) vaccine (1 o f 1 - Influenza standard series) 03/05/2024 Procedures Procedure Name Priority Date/Time Associated Diagnosis Comments CT SCAN (SCAN) 12/09/2023 12:00 AM EDT FILM LIBRARY STORAGE ONLY NUCLEAR MEDICINE Routine 11/30/2023 12:00 AM EDT DIAGNOSTIC RADIOLOGY SCAN 11/30/2023 12:00 AM EDT BASIC METABOLIC PANEL Routine 03/29/2015 4:59 AM EDT from Last 3 Months or Most Recently Relevant to Health Maintenance Results * Scan Doc: CT Scan (12/09/2023 12:00 AM EDT) Anatomical Region Laterality Modality Other Narrative 12/09/2023 12:00 AM EDT Ordered by an unspecified provider. Scanning Provider MEDIA MGR SCAN EXT O RDR/RSLT * Scan Doc: Diagnostic Radiology (11/30/2023 12:00 AM EDT) Anatomical Region Laterality Modality Other Narrative 11/30/2023 12:00 AM EDT Ordered by an unspecified provider. Scanning Provider MEDIA MGR SCAN EXT O RDR/RSLT * Film Library- Storage Only nuclear medicine (11/30/2023 12:00 AM EDT) Narrative RAD - 12/01/2023 10:07 AM EDT This exam is auto-finalizing. It's purpose is for storage only. Navid Avendaño MD IMG FILM LIBRARY ORDERABLES [place], [place] * (ABNORMAL) Basic Metabolic Panel (non-fasting) (03/29/2015 4:59 AM EDT) [facility] Glucose 165 65 - 199 mg/dL [facility] Comment:Diabetes: >=200 mg/d L plus symptoms Blood Urea Nitrogen 13 8 - 18 mg/dL [facility] Creatinine 1.03 0.70 - 1.20 mg/dL [facility] Comment: Please note that the pediatric reference intervals supplied above were not validated at [facility]. Results from pediatric patients should be interpreted in conjunction to the patient's age, height and muscle mass. Sodium 138 135 - 145 mmol/L [facility] Potassium 4.6 3.5 - 5.0 mmol/L [facility] Comment: Please note: ??Patients with WBC >100,000 may have falsely elevated Potassium levels. ??For accurate Potassium quantification in these patients send serum separator tube (gold top) for subsequent determinations. ??Contact the Clinical Chemistry Laboratory if there are any questions. Chloride 99 98 - 107 mmol/L [facility] Carbon Dioxide 28 22 - 31 mmol/L [facility] Anion Gap 11 5 - 15 mmol/L [facility] Calcium 8.5 8.5 - 10.5 mg/dL [facility] Est Glomerular Filtration Rate 53(L) >=60 [facility] Comment: This estimated GFR (eGFR) value was calculated using the MDRD equation which has been validated on patients between the ages of 18 and 70. The MDRD should not be used to assess kidney function in patients < 18 years of age or in patients with extremes of body mass, or in patients with acute kidney failure. This value should be multiplied by 1.2 for patients. For further information please copy and paste the following links into your internet browser. [email or web address] Blood specimen (specimen) 03/29/2015 4:59 AM EDT 03/29/2015 5:46 AM EDT Narrative Resulting Agency Comment Spec In Lab Anthony Belle MD CHEMISTRY ORDERABLES [facility] from Last 3 Months or Most Recently Relevant to Health Maintenance Advance Directives Documents on File Type Date Recorded Patient Cook Pie Expl anation Advance Directives and Livin g Will 03/28/2015 2:40 PM * Full Code (Latest Code Status on File) Date Activated Date Inactivated Comments 03/28/2015 6:13 PM 03/29/2015 4:12 PM Question Answer Comments Does patient have capacity to make decision: Yes * Full Code Date Activated Date Inactivated Comments 03/28/2015 3:02 PM 03/28/2015 6:13 PM Question Answer Comments Does patient have capacity to make decision: Yes Care Teams Shoulder Pad Molder Relationship Specialty Start Date End Date Navid Avendaño MD [address] [place], [place] [id number] PCP - General Family Medicine 01/24/19
--- OUTSIDE RECORDS SUMMARY | 2024-02-29 01:28 | XMS_ITS | Encounter Summary ---
Author Organization [facility] Address [address] [place] [address] Care Team Providers Care Dermatologist And Dermatopathologist Name Role Phone Maya Burden MD Primary Care Provider [phone] Encounter Details Date Type Department Care Team (Late st Contact Info) Description 12/07/2018 Results Only [facility] [phone] Sonya Short MD [facility] [address] [place], [place] [id number] Social History Tobacco Use Types Packs/Day Years [...] Date/Time Associated Diagnosis Comments SURGICAL PATHOLOGY Routine 12/07/2018 9:02 EDT documented in this encounter Results * SURGICAL PATHOLOGY (12/07/2018 9:02 EDT) Pathology Report: SURGICAL PATHOLOGY REPORT Reports generated via electronic interface contain original data; however they are lacking the format of the original report. Caution should be taken when reading/interpreting unformatted reports. Name: ? JENNIFER SANTIZO ? Accession #: ? [id number] ? : ? 1945 (Age: 73) ??F ? Collect Date: ? 12/07/2018 ? Location: ? [facility] ? Receive Date: ? 12/08/2018 ? Provider: SONYA SHORT MD Copy to: CELIA CAICEDO MD ? Final Pathologic Diagnosis: SUMMARY DIAGNOSIS FOR MALIGNANT BREAST TUMORS AJCC (8th edition): PT2 pN1a (sn) Laterality: ??Left ? Procedure: ??Total mastectomy and sentinel lymph node biopsy Histologic Type: Ductal Tumor Size: ??2.7 x 2.5 x 2.0 cm Tumor Location: Lower inner quadrant; 7 o'clock [place] Combined Histologic Scores: ?Tubular differentiation: Score 2 ?Nuclear pleomorphism: Score 3 ?Mitotic Rate: ??Score 3 (actual count 28/10 HPF with field diameter of 0.54 mm) ?Total Score: ??8 Overall Grade: ?Grade 3 (poor) Invasive margins: ??Negative (Greater than 10.0 mm from closest margins, deep and superficial) DCIS: ??Cribriform and papillary patterns with extensive necrosis, nuclear grade II % DCIS: ??20% of tumor mass DCIS margins: ??Negative (5.0 mm from closest margin, superficial) LVI: ??Not identified Treatment effect in breast: No known presurgical therapy Treatment effect in nodes: ??No definite Lymph nodes: ?2/6 (positive/total number examined) Morton nodes: ?? 5 (examined and included in total) ? 1 node with macrometastases ? 0 nodes with micrometastases ? 1 node with isolated tumor cells only ER/KY: ?ER positive (Greater than 90%); [place] positive (Greater than 90%) ([id number]) Her2/mauricio: ? Negative 1+ by immunohistochemistry ([id number]) FINAL PATHOLOGIC DIAGNOSIS: A. ??BREAST, LEFT, TOTAL MASTECTOMY: - Adenocarcinoma, invasive, ductal type, with micropapillary features, poorly differentiated. ??See comment. - Tumor location: ??Lower inner quadrant. - Tumor position: 7 o'clock, 2 cm from the nipple. - Tumor measures 2.7 cm in greatest dimension (AJCC: pT2, pN1a)(sn). - Surgical resection margins are negative; invasive tumor present: ??- Greater than 1.0 cm from deep and superficial margins. - Lymphovascular invasion is not identified. - Ductal carcinoma in situ, cribriform and papillary patterns, with central comedo-type necrosis, nuclear grade II. - DCIS comprises 20% of the total tumor mass. - DCIS is present within and adjacent to invasive tumor mass. - Surgical resection margins are negative; DCIS present: ??- 5.0 mm from the superficial margin. ??- Greater than 1.0 cm from the deep margin. - Fibrocystic changes including: ??- Columnar cell change. ??- Columnar cell hyperplasia. ??- Interlobular fibrosis. - Microcalcifications are associated with DCIS and columnar cell change. - Skin: Negative for malignancy. - Nipple: Negative for malignancy. - Prior biopsy site is not identified. ?? B. ??LYMPH NODE, SENTINEL #1, LEFT AXILLA, EXCISION BIOPSY: - Two of two lymph nodes positive for metastatic carcinoma (2/2). - One lymph node with largest metastatic focus of 1.9 cm. ?? - Extranodal extension is present. - One lymph node with isolated tumor cells only. C. ??LYMPH NODE, LEFT AXILLA, EXCISION BIOPSY: - One lymph node negative for malignancy (0/1). D. ??LYMPH NODE, SENTINEL #2, LEFT AXILLA, EXCISION BIOPSY: - One lymph node negative for malignancy (0/1). E. ??LYMPH NODES, SENTINEL #3, LEFT AXILLA, EXCISION BIOPSY: - Two lymph nodes negative for malignancy (0/2). F. medial skin edge, excision: - Skin and subcutaneous tissue with no specific pathologic features. Comment: Jordan Worker slides of this case were reviewed at intradepartmental consultation conference. ?? Document reviewed and electronically signed by: CHANA RICHARDSON MD Report ??Date: 12/13/2018 16:28 By the signature above, the attending physician certifies that he/she has personally conducted a gross and/or microscopic examination of the described specimens and rendered or confirmed the above diagnosis. Specimen(s) Received: A. ??Mastectomy, left; suture medial B. ??Morton lymph node #1 C. ??Lymph node D. ??Morton lymph node #2 E. ??Morton lymph node #3 F. ??Medial skin edge; short superior, long medial Clinical History: Left ductal carcinoma Gross Description: A. ?Received in formalin labelled with proper patient identification (initials B, J) and mastectomy, left is the product of a total mastectomy (655 g, 20.0 cm medial to lateral x 17.5 cm superior to inferior x 5.7 cm anterior to posterior), that is oriented with suture medial. There is an overlying ellipse of patel skin (11.8 cm medial to lateral x 8.3 cm superior to inferior) with a central, erect nipple (1.4 x 1.1 x 0.4 cm). ? Within the lower inner quadrant, at 7 o'clock and 2 cm from the nipple there is a pale, firm mass (2.7 x 2.5 x 2.0 cm) with irregular borders. The mass is greater than 1 cm from the nearest superficial margin and greater than 1 cm from the nearest deep margin. The tumor is 1.5 cm from the nearest section of skin. Approximately 0.5 cm from the main tumor mass there is an additional firm patel white focus (0.7 x 0.6 cm). A biopsy site not is identified within the tumor. ? The remaining cut surface is composed of lobulated adipose tissue with a small amount of dense fibrous tissue. No scars or lesions are identified on the epidermal surface. ? Jordan Worker sections are submitted as follows: INK MERINO Black-deep Blue-superficial ? BLOCK MERINO A1- ??nipple, perpendicular sections A2- ??transverse section of nipple with lactiferous sinuses A3- ??deep margin nearest to tumor (no tumor included) A4- ??superficial margin close to tumor (no tumor included) A5- ??tumor with superficial margin A6- ??section of tumor and additional patel firm focus A7-A13- ??sections of tumor A14-A15- ??commercial sales representative sections of upper inner quadrant A16-A17- ??commercial sales representative sections of lower inner quadrant A18-A19- ??commercial sales representative sections of lower outer quadrant A20-A21- ??commercial sales representative sections of upper outer quadrant A22- ??commercial sales representative sections of area of fibrosis under nipple Time removed from patient: ??12/07/2018 1200 hrs. Time in formalin: ??12/07/2018 1251 hrs. Time out of formalin: ??12/09/2018 1900 hrs. B. ?Received in formalin labelled with proper patient identification (initials B, J) and sentinel lymph node #1 is a piece of fibrofatty tissue (4.8 x 2.7 x 1.0 cm) containing two lymph nodes (1.9 x 1.2 x 0.9 cm and 1.7 x 1.0 x 0.9 cm). The larger node is quadrisected and submitted entirely in B1-B2. The smaller lymph node is trisected and submitted entirely in B3-B4. C. ?Received in formalin labelled with proper patient identification (initials B, J) and lymph node is a single lymph node and associated fatty tissue (2.6 x 2.0 x 1.1 cm). The node is serially sectioned and entirely submitted as C1-C3. D. ?Received in formalin labelled with proper patient identification (initials B, J) and sentinel lymph node #2 is a single that lymph node (1.1 x 1.0 x 0.3 cm). The node is bisected and entirely submitted as D1. E. ?Received in formalin labelled with proper patient identification (initials B, J) and sentinel lymph node #3 is a portion of fibrofatty tissue (2.3 x 1.1 x 0.5 cm), in which two probable lymph nodes are identified (1.8 x 1.1 x 0.5 cm and 1.8 x 0.6 x 0.4 cm). The larger node is bisected and submitted entirely in E1. The smaller lymph node is bisected and submitted entirely as E2. F. ?Received in formalin labelled with proper patient identification (initials B, J) and not otherwise specified is a portion of patel skin (16.5 cm x 3.5 cm) with associated subcutaneous tissue (excised to a depth of up to 1.5 cm), oriented with short stitch superior long stitch medial. Jordan Worker sections are submitted as F1-F2. Micaela Powell 12/09/2018 3:08 PM End of Report [facility] 12/07/2018 9:02 EDT 12/08/2018 9:02 EDT Sonya Short MD PATHOLOGY ORDERA [facility] Organization Address City/State/ZIP Co de Phone Number [facility] [address] [place] [address] documented in this encounter Visit Diagnoses Not on filedocumented in this encounter Care Teams Dermatologist And Dermatopathologist Relationship Specialty Start Date End Date Maya Burden MD [address] [place] [address] [place] [address] PCP - General 10/02/11 11/08/19 documented as of this encounter
--- OUTSIDE RECORDS SUMMARY | 2024-02-29 01:28 | XMS_ITS | Encounter Summary ---
Author Organization [facility] Address [address] [place] [address] Care Team Providers Care Processes Chemical Design Engineer Name Role Phone Navid Avendaño MD Primary Care Provider [phone] Encounter Details Date Type Department Care Team (Late st Contact Info) Description 05/22/2020 Results Only [facility] [address] [address] Unknown, Provider, Social History Tobacco Use Types Packs/Day Years [...] Date/Time Associated Diagnosis Comments SURGICAL PATHOLOGY Routine 05/22/2020 7:42 EST documented in this encounter Results * SURGICAL PATHOLOGY (05/22/2020 7:42 EST) 05/22/2020 7:42 EST 05/23/2020 6:00 EST Narrative [facility] - 05/24/2020 12:12 EST ----- ------- Name: JENNIFER SANTIZO ?: [birth year] ?Age/Sex: 75/F ?Unit#: [id number] ? Loc: LAB.POP ? Status: REG REF ?? Reg Date: 05/23/20 ? Pt.Phone Number: ? ----- ------- Specimen: [id number] ? STATUS: SOUT ?Spec Date:05/22/20 ? Physician Copies: ?NONE,NONE ? Tissues: A ?? Endoscopy specimen (GASTRIC POLYP) ? JENNIFER SANTIZO ? B ?? Endoscopy specimen (ANTRUM BX) ? MISSY SHORT ? C ?? Endoscopy specimen (JE JUNCTION BX) ? D ?? Endoscopy specimen (TRANSVERSE COLON POLYP) ? E ?? Endoscopy specimen (DECENDING COLON POLYPS X 5) ? F ?? Endoscopy specimen (SIGMOID COLON POLYPS X 6) ? G ?? Endoscopy specimen (RECTAL POLYPS X 3) ? CPT: 63514 ?? Units: ??7 ?FINAL DIAGNOSIS ? A. STOMACH, POLYP, BIOPSY: ? - Fundic gland polyp. ? B. STOMACH, ANTRUM, BIOPSY: ? - Gastric mucosa with no specific pathologic features. ? C. GASTROESOPHAGEAL JUNCTION, BIOPSY: ? - Focal intestinal metaplasia in a background of reflux esophagitis. ? - Negative for dysplasia. ? D. COLON, TRANSVERSE, POLYP, BIOPSY: ? - Colonic mucosa with hyperplastic surface change. ? E. COLON, DESCENDING, POLYPS, BIOPSY: ? - Fragments of hyperplastic polyp(s). ? F. COLON, SIGMOID, POLYPS, BIOPSY: ? - Fragments of hyperplastic polyp(s). ? G. RECTUM, POLYPS, BIOPSY: ? - Fragments of hyperplastic polyp(s). ----- ------- ?COMMENT ? [id number] ----- ------- Patient: JENNIFER SANTIZO ?#[id number] ? (Continued) ----- ------- Specimen: [id number] ? Received: 05/23/20 ?(Continued) ? GROSS DESCRIPTION ? A. ??Received in formalin labeled with proper patient identification (B,J) and ? gastric polyp bx is a patel nodular tissue, 0.3 cm in diameter. es block A. ? B. ??Received in formalin labeled with proper patient identification (B,J) and ? antrum bx are two irregular tissues averaging 0.4 x 0.2 x 0.1 cm. es block B. ? C. ??Received in formalin labeled with proper patient identification (B,J) and ? GE junction bx is a pale sanchez membranous tissue, 0.2 x 0.1 x 0.1 cm. ??es ? block C. ? D. ??Received in formalin labeled with proper patient identification (B,J) and ? transverse colon polyp is a patel irregular tissue, 0.4 x 0.2 x 0.2 cm. es ? block D. ? E. ??Received in formalin labeled with proper patient identification (B,J) and ? descending colon polyps x 5 are five patel-brown nodular tissues averaging 0.4 ? cm in diameter. ??es block E. ? F. ??Received in formalin labeled with proper patient identification (B,J) and ? sigmoid colon polyps x 6 are six patel-grown irregular tissues ranging from 0.2 ? cm in greatest dimension to 0.3 cm in greatest dimension. ??es block F. ? G. ??Received in formalin labeled with proper patient identification (B,J) and ? rectal polyps x 3 are two patel irregular tissues, 0.2 and 0.3 cm in diameter. ? es block G. ? NOTE to Pathologist: ??only two tissue fragments are present within the specimen ? container contradicting documented number taken, x 3. ??/MB ?? Signed ____(signature on file)____ Camille Colin M.D. 05/24/20 By the signature above, the attending physician certifies that he/she has personally conducted a gross and/or microscopic examination of the described specimens and rendered or confirmed the above diagnosis. Test Performed by [facility], [address] [place] [address] Practice Architect: Leilani Gaytan MD PHD ----- ------- Provider Unknown MD PATHOLOGY ORDERABLES Performing Organization Address City/State/[facility] Co de Phone Number [facility] [address] [place] [phone] documented in this encounter Visit Diagnoses Not on filedocumented in this encounter Care Teams Processes Chemical Design Engineer Relationship Specialty Start Date End Date Navid Avendaño MD [address] [place], [place] [phone] PCP - General 11/09/19 documented as of this encounter
--- OUTSIDE RECORDS SUMMARY | 2024-02-29 01:28 | XMS_ITS | Encounter Summary ---
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; 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; Hot flashes Social History Tobacco Use Types Packs/Day Years Used Date Smoking Tobacco: Never Smokeless Tobacco: Never Alcohol Use Standard Drinks/Week Comments No 0 (1 standard drink = 0.6 oz pur e alcohol) Sex and Gender Information Value Date Recorded Sex Assigned at Not on file Gender Identity Not on file Sexual Orientation Not on file documented as of this encounter Last Filed Vital Signs Vital Sign Reading Time Taken Comments Blood Pressure 178/71 08/17/2023 10:22 AM EST Pulse 79 08/17/2023 10:22 AM EST Temperature 36.2 ??C (97.1 ??F) 08/17/2023 10:[address] Respiratory Rate 18 08/17/2023 10:22 AM EST Oxygen Saturation 98% 08/17/2023 10:22 AM EST Inhaled Oxygen Concentration - - Weight 98.7 kg (217 lb 9.6 oz) 08/17/2023 10:22 AM EST Height 153 cm (5' 0.24) 08/17/2023 10:22 AM EST Body Mass Index 42.16 08/17/2023 10:22 AM EST documented in this encounter Progress Notes * Kadie Gaming APRN - 08/17/2023 10:30 AM EST Images from the original note were not included. 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.gr3, LVI-, marilynn neg, ER+/WA+, Her2 IHC neg, LN 2/6, DCIS, [id number] (stage IIA) HPI:Myesha Livingston referred by Dr. Bedolla for consultation on diagnosis of left breast cancer. She had a history of fibrocystic breast and felt a mass in the left breast about 6 months ago. She was seen by her primary care Dr. Avendaño, who referred her for mammogram and ultrasound, which revealed left 2.7 cm hypoechoic hypervascular mass highly suspicious for malignancy. Surgeon Dr. Bedolla performed biopsy on November 22. 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 She underwent left mastectomy and lymph nodes dissection on December 07, 2018. Postop course wasuneventful. During the second infusion of docetaxel she developed syncopal episodes with low blood pressure and hypoxia. She was admitted to the hospital where found to have UTI with ceftriaxone. CT scan was negative for pulmonary embolism. Chemotherapy was discontinued after the 2nd cycle. 04/03/19to 05/15/19 she completed adjuvant .XRT. 05/31/19 started letrozole 2.5 mg daily and she continues it and is tolerating it well. Interval history(08/17/23): Ms. Santizo returns to the [facility] for follow-up of breast cancer. Overall, Myesha feels well. She is currently on letrozole daily. No noticeable side effects. She has hot flashes which are tolerable and declines any treatment for them. She never started the effexor as she did not want to take another medication. She continues on Zoloft for her mood which isstable and sees a counselor. She has a history of fibrocystic breasts and occasional tenderness. Nonew tenderness or dominant mass or suspicious lesion on breast exam. No new illnesses or hospitalizations since we saw her last. Denies any cough, shortness of breath, loss of appetite or new breast issues. Denies any headaches or vision changes. She has BLE swelling which is chronic and stable. She is not taking her diuretic as it makes her urinate too much. She is following up with her PCP in regards to her LE swelling. No other focal complaints today. The remainder of review of systems reviewed and is negative. PMH: No interval changes since last visit 2021- Right carpal tunnel surgery Arthritis Arthritis, depression September 2019- Right TKR Spring 2019- large cyst removed from back Syncopal episode on March 14 and admission for syncope, UTI, hypoxia. Cataract, hypertension, hyperlipidemia, Avila's esophagus, hypothyroidism, obesity, squamous cellskin cancer, endometrial cancer in 2006 diverticulosis, anxiety Past Medical History: Diagnosis Date Anxiety Avila esophagus Hx of adenomatous polyp of colon Hyperlipidemia Hypertension Hypothyroid Hypothyroid Squamous cell skin cancer Social History: No interval changes since last visit Non-smoker drinks alcohol occasionally, she is retired, lives by herself. Family History: No interval changes since last visit Grandfather had colon cancer, 2 maternal aunt had breast cancer OBGYN History: No interval changes since last visit Allergies: Allergies Allergen Reactions Adhesive Tape Other reaction(s): blistering Atorvastatin Calcium CIS - myalgias Docetaxel Syncope, 02 desaturation, tachycardia, hypotension. Medications: Your Medications Accurate as of August 17, 2023 12:52 PM. If you have any questions, ask your nurse or doctor. Continued medications, unchanged Dose Details acetaminophen 500 mg tablet Commonly known as: Tylenol As needed Refills: 0 aspirin EC 81 mg EC (DR) tablet Take 81 mg by mouth daily. 81 mg Refills: 0 Ca carb-Ca gluc-Mg ox-Mg gluco 500 mg calcium -250 mg Tablet Take by mouth. Refills: 0 celecoxib 100 mg capsule Commonly known as: CeleBREX Take 100 mg by mouth daily. 100 mg Refills: 0 Daily Multiple Tablet Generic drug: multivitamin Refills: 0 furosemide 20 mg tablet Commonly known as: Lasix Take 20 mg by mouth daily. 20 mg Refills: 0 gabapentin 300 mg capsule Commonly known as: Neurontin Take 300 mg by mouth nightly. 300 mg Refills: 0 letrozole 2.5 mg tablet Commonly known as: Femara Take 1 tablet by mouth daily. 2.5 mg Quantity: 90 tablet Refills: 2 levothyroxine 88 mcg tablet Commonly known as: Synthroid Take 100 mcg by mouth daily. Two tabs on sundays 100 mcg Refills: 0 lisinopriL 10 mg tablet Commonly known as: Zestril Daily Refills: 0 metFORMIN 500 mg tablet Commonly known as: Glucophage Twice a day Refills: 0 pravastatin 40 mg tablet Commonly known as: Pravachol Take 40 mg by mouth daily. 40 mg Refills: [address] capsule Take by mouth 2 times daily. Generic drug: omeprazole Refills: 0 senna-docusate 8.6-50 mg Tablet Commonly known as: Pericolace Take 1 tablet by mouth daily. 1 tablet Quantity: 60 tablet Refills: 0 venlafaxine 37.5 mg tablet Commonly known as: Effexor Take 1 tablet by mouth 3 times daily. 37.5 mg Quantity: 90 tablet Refills: 3 Review of Systems: As in interval history Physical Exam Constitutional: Appearance: She is well-appearing. HENT: Normocephalic. Eyes: General: No scleral icterus. Cardiovascular: Rate and Rhythm: Normal rate. Pulmonary: Effort: Pulmonary effort is normal. Breath sounds: Normal breath sounds. No wheezing. Abdominal: General: Bowel sounds are normal. Palpations: Abdomen is soft. There is no mass. Tenderness: There is no abdominal tenderness. Musculoskeletal: Chronic BLE edema present and stable. Lymphadenopathy: Cervical: No cervical, supraclavicular, or axillary adenopathy. Breast Exam: S/p L. Mastectomy. There are no masses, erythema, edema, d/c, or lesions bilaterally in the breast.R. Breast with mild tenderness medially which is chronic, stable, and unchanged. No dominant mass or suspicious lesion on exam. No axillary lymphadenopathy. Vitals BP 178/71 (Patient Position: Sitting) Pulse 79 Temp 36.2 ??C (97.1 ??F) (Temporal) Resp 18 Ht 153 cm (5' 0.24) Wt 98.7 kg (217 lb 9.6 oz) SpO2 98% BMI 42.16 kg/m?? Pathology: Oncotype DX breast recurrence score: 29 corresponded to distant recurrence risk at 9 years of 23%. With Tamoxifen alone A - Outside slide(s) labeled [id number], collection date 11/11/2018. 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 - Ductal carcinoma in-situ (DCIS), high nuclear grade, papillary/micropapillary with necrosis. On submitted slides (reviewed) - ER immunoreactivity: Positive (>90% cancer cells with immunostaining) Stain intensity: Intermediate and Strong WA immunoreactivity: Positive (>90% cancer cells with immunostaining) Stain intensity: Strong HER2 IHC - Per report, 1+/Negative B - Outside slide(s) labeled [id number], collection date 12/07/2018. 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 - Ductal carcinoma in-situ (DCIS), high grade with comedonecrosis. - See Synoptic report. B - Lymph node, Anchor Point #1, left axillary, excision (4 slides labeled B)- - Metastatic carcinoma to one of two lymph nodes. - The anita metastasis measures 1.9 cm. - Extranodal invasion is present. 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 C - Lymph node, left axilla, excision (3 slides labeled C)- - One benign node. D - Lymph node, Anchor Point #2, left axillary, excision (1 slide labeled D)- - One benign node. E - Lymph node, Anchor Point #3, left axillary, excision (2 slides labeled E)- - Two benign nodes. F - Medial Skin edge, excision (2 slides labeled F) - - Benign skin and subcutis. Specimen Procedure: Total mastectomy Specimen Laterality: Left Tumor Histologic Type: Invasive carcinoma of no special type (ductal, not otherwise specified) Histologic Type Comments: with micropapillary features Histologic Grade ([place] Histologic Score) Glandular (Acinar) / Tubular Differentiation: Score 3 . DIAGNOSIS Nuclear Pleomorphism: Score 3 Diameter of Microscope Field in Millimeters (mm): 0.55 mm Mitotic Rate: Score 3 (>=8 mitoses per mm2) Overall Grade: Grade 3 (scores of 8 or 9) Tumor Size: 27 Millimeters (mm) Ductal Carcinoma In Situ (DCIS): Present Architectural Patterns: Micropapillary, Papillary, Solid Nuclear Grade: Grade III (high) Necrosis: Present, central (expansive comedo necrosis) Tumor Extent Skin: Invasive carcinoma does not invade into the dermis or epidermis Skin Satellite Foci: Satellite foci not identified Nipple DCIS: DCIS does not involve the nipple epidermis Skeletal Muscle: No skeletal muscle is present Accessory Findings Lymphovascular Invasion: Not identified Treatment Effect: No known presurgical therapy Margins Invasive Carcinoma Margins: Uninvolved by invasive carcinoma Distance from Other Specified Margin: From all RM > 10 Millimeters (mm) DCIS Margins: Uninvolved by DCIS Distance of DCIS to Anterior Margin: 5 Millimeters (mm) Distance from Other Specified Margin: From all other RM > 10 Millimeters (mm) Lymph Nodes Regional Lymph Nodes: Involved by tumor cells Number of Lymph Nodes with Macrometastases: 1 Number of Lymph Nodes with Micrometastases: 0 Number of Lymph Nodes with Isolated Tumor Cells: 1 Size of Largest Metastatic Deposit: 19 Millimeters (mm) Extranodal Extension: Present Number of Lymph Nodes Examined: 6 Number of Anchor Point Nodes Examined: 5 Pathologic Stage Classification (pTNM, AJCC 8th Edition) Primary Tumor (Invasive Carcinoma) (pT): pT2 Regional Lymph Nodes (pN) Category (pN): pN1a Labs: 08/17/23 BUN 24, creatinine 1.6, sodium 142, potassium 4.2, ferritin 90, calcium 9.7, TB 0.3, AST 17, ALT 29, alkaline phosphatase 109, total protein 7.6, WBC 7.18, hemoglobin 11.6, platelet count 195, 02/16/2023 BUN 21, creatinine 1.4, sodium 142, potassium 4.1, ferritin 86, calcium 9.2, TB 0.3, AST 15, ALT 22, alkaline phosphatase 100, total protein 7.1, WBC 5.28, hemoglobin 11.4, platelet count 196, 09/07/2022 BUN 23, creatinine 1.4, glucose 181, calcium 9.5, TB 0.2, AST 18, ALT 25, albumin 3.9, WBC7.02, hemoglobin 12.1, platelet count 202 03/17/22- WBC-5.78 Hgb/Hct-11.5/35.8 Plt-168 ANC-4.17 Na-139 K+-4.5 BUN/Cr-18/1.3 Glucose-131 Ca-9.3 T. Bili-0.3 AST-20 ALT-34 Alk phos-95 Albumin-3.7 Ferritin-131 02/04/21- WBC-6.04 Hgb/Hct-10.5/33.4 MCV-87.7 Plt-162 ANC-4.39 Na-142 K+-43. BUN/Cr-20/1.5 Glucose-121 Ca-8.8 T. Bili-0.2 AST-14 ALT-25 Alk phos-101 Albumin-3.7 QxlD1B-5.0 Ferritin-215 11/08/20- WBC-6.67 Hgb/Hct-10.5/33.7 Plt-197 ANC-5.02 Na-142 K+-4.3 BUN/Cr-22/1.4 Glucose-97 Ca-9.1 Ferritin-38 T. Bili-0.3 AST-13 ALT-26 Alk phos-105 Albumin-3.8 04/04/2020 WBC 6, hemoglobin 10.2, platelet count 209, ANC 4.7, haptoglobin 185, iron 37, TIBC 311, transferrin saturation 12%, ferritin 31, BUN 15, creatinine 1.23 B0.3, alkaline phosphatase 92, LDH 124, TB 0.3, AST 15, ALT 23, alkaline phosphatase 92, LDH 124, SPEP no M spike, no apparent monoclonal protein, folate more than 20, TSH 4.27, free T4 1.02 12/21/19-WBC-6.39 Hgb/Hct-10.1/31.8 MCV-85.0 Plt-226 ANC-5.07 Retic count-1.5 Haptoglobin-207 Iron-64 TIBC-307 Ferritin-35 Tsat-21 BUN/Cr- 20/1.18 Lytes and LFTS unremarkable Hgb A1C-7.2 Vit B12-532 MMA-0.38 Folate->20.0 SPEP with immunofixation- No apparent monoclonal protein seen on serum electrophoresis. 06/21/2019 WBC 6.8, hemoglobin 10.8, MCV 88.3, platelets 212, ANC 5.54, sodium 140, potassium 4.3, and 1.11, calcium 9.6, alkaline phosphatase 85, ALT 26, AST 15, TB 0.2, total protein 7.1 05/22/2019 WBC 6.72, hemoglobin 11.3, platelet count 271, sodium 139, BUN 20, creatinine 1.26, calcium 9.5, TB 0.2, AST 14, ALT 27, alkaline phosphatase 99, total protein 7.3, albumin 4.0 10/20/2018 WBC 7.46, hemoglobin 11.5, platelet count 197 hemoglobin A1c 6.9 Imagin03/18/23 Dexa scan WNL 02/28/23 Mammogram: Benign 02/25/2022 mammogram: Findings: The fibroglandular tissue particularly of the right breast noted to be moderately dense. No new spiculated masses no malignant appearing microcalcification groups. Impression: No radiographic evidence of malignancy in the right breast. 12/21/19- Mammogram- Impression: BI-RADS category 2- Benign findings. Yearly screening mammography is recommended. Breast Density Category C, heterogeneously dense tissue which decreases the sensitivity of the mammogram. 06/21/2019 DEXA scan: Femoral neck T score -0.5. Impression: Normal 06/21/2019 CT chest abdomen pelvis: Consider metastatic malignancy in the chest abdomen pelvis 06/21/2019 bone scan: Impression: No skeletal metastasis. Degenerative changes bilateral knees. Ending up in low thoracicand lower lumbar spine. 03/14/2019 CTA of chest: No pleural effusion. No pulmonary consolidation. No pulmonary embolism. No mediastinal hilar adenopathy. 11/01/18 Mammogram and ultrasound: Left hypoechoic vascular mass 2.7 cm in the left breast Highly suspicious for malignancy Assessment and Plan: 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.gr3, LVI-, marilynn neg, ER+/WA+, Her2 IHC neg, LN 2/6, DCIS, [id number] (stage IIA) Treatment: -12/07/2018 left mastectomy and sentinel lymph node biopsy -02/21/19 started docetaxel and cyclophosphamide, 2-nd cycle was aborted due to Grade 4 side effect - 04/03/19 to 05/15/19 adjuvant .XRT - 05/31/19 started letrozole 2.5 mg daily Ms. Santizo is diagnosed with left breast cancer with 2 lymph nodes positive for carcinoma one is macromet and the other one - isolated cancer cells. Based on [employer] calculator she has 31.5% 15-year cancer related mortality with no adjuvant treatment. With 4 cycles of TC chemotherapy 15-yearcancer related mortality is 23.3%. With adding at least 5-year of aromatase inhibitors to treatmentregimen 15-year cancer related mortality is down to 15.9%. Patient developed syncopal episode with hypotension and hypoxia during second infusion of docetaxel. She was sent to the emergency room and admitted to the hospital. She was treated for UTI, dehydration. CT scan was negative for pulmonary embolism. After that she feels better but still intermittently lightheaded. Due to grade 4 reaction to docetaxel we discontinued chemotherapy. She completed adjuvant radiation under the care of Dr. Shelton on May 15. Restaging CT and bonescan were negative for metastatic disease. She started letrozole on May [id number]. Myesha is tolerating the letrozole well without evidence of clinical toxicities. No clinical evidence of disease recurrence. Mammogram done in February 2023 was negative for malignancy. Last DEXA in 03/2023 was normal. 09/08/2022 clinically and radiographically Myesha is is doing well with oncological standpoint. She will continue letrozole 2.5 mg daily with tentative plan for 10 years. Will obtain new bone density scan. We will see her back in 6 months. If everything looks well in 6 months we will switch her appointments to annual basis 02/16/23 LIZETH. Continue letrozole 2.5 mg daily. She is scheduled for annual mammogram and bone density scan in March. 08/17/23 Myesha continue letrozole 2.5mg daily and is tolerating it well. Elects to continue extended endocrine therapy. She has no s/s of recurrent breast cancer. Dexa scan showed WNL. She is due foranother mammogram 02/2024. #Depressed mood: On Zoloft. She follows with primary care Dr. Avendaño and sees a counselor. #Anemia: Resolved, Hgb 11.6 today. Ferritin 90, will continue to monitor. She completed 3 doses of Venofer IV in December 2020. 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 #Hot flashes: declines Effexor or any additional treatment. She is on Zoloft for mood and gabapentin which can help with HF as well. Plan: 1. Continue letrozole 2.5mg po daily. Elects to continue extended endocrine therapy for a total of 10 years. 2. DEXA scan q 2 years (due 03/2025. 3. Mammogram due 02/2024 and I ordered this today 4. Follow up visit in 6 months with CBC,CMP, Ferritin and mammogram prior to visit. After this visit if she continues to do well on the letrozole we discussed that we could consider moving her visitsout to annually. Kadie Gaming APRN 30 minutes were spent on date of visit, including non-face to face time. documented in this encounter Plan of Treatment Upcoming Encounters Date Type Department Care Team (Late st Contact Info) Description 03/21/2024 2:30 PM EDT Office Visit Hematology/Oncology at [address] [phone] Edgar Carreon MD [facility] [address] [place] [address] Kadie Gaming APRN [facility] [place] [address] 05/15/2024 3:30 PM EST Office Visit Radiation Oncology at [address] [phone] Patsy Shelton MD [facility] [place] [address] Scheduled Orders Name Type Priority Associated Diagnoses Orde r Schedule Mammo Screening Cad and Henrique Right Imaging Routine 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 Expected: 02/15/2024, Expires: 02/14/2025 CBC (with Diff) Lab Routine 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 Expected: 02/15/2024, Expires: 08/16/2024 Comprehensive metabolic panel (non-fasting) Lab Routine 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 Expected: 02/15/2024, Expires: 08/16/2024 Ferritin Lab Routine 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
--- OUTSIDE RECORDS SUMMARY | 2024-02-29 01:28 | XMS_ITS | Encounter Summary ---
Author Organization [facility] Address [address] [place] [address] Care Team Providers Care Shovel Loader Operator Name Role Phone Maya Burden MD Primary Care Provider [phone] Encounter Details Date Type Department Care Team (Late st Contact Info) Description 01/26/2019 Results Only [facility] [phone] Edgar Lovett MD [address] [place] [address] [place] [address] Social History Tobacco Use Types Packs/Day Years Used Date Smoking Tobacco: Never Assessed Sex and Gender Information Value Date Recorded Sex Assigned at Not on file Gender Identity Female 03/04/2020 7:29 EDT Sexual Orientation Not on file documented as of this encounter Plan of Treatment Pending Results Name Type Priority Associated Diagnoses Date /Time SURGICAL PATHOLOGY Pathology Routine 2018 14:58 EDT documented as of this encounter Procedures Procedure Name Priority Date/Time Associated Diagnosis Comments SURGICAL PATHOLOGY Routine 01/26/2019 0:00 EDT documented in this encounter Results * SURGICAL PATHOLOGY (01/26/2019 0:00 EDT) Pathology Report: SURGICAL PATHOLOGY REPORT Reports generated via electronic interface contain original data; however they are lacking the format of the original report. Caution should be taken when reading/interpret ing unformatted reports. Name: ? JENNIFER SANTIZO ? Accession #: ? [id number] ? : ? 1945 (Age: 73) ??F ?Collect Date: ? 01/26/2019 ? Location: ? [facility] ? Receive Date: ? 01/26/2019 ? Provider: EDGAR LOVETT MD Copy to: ? Clinical History: ? SEND OUT TEST SUMMARY REPORT ? Date Ordered: ? 01/26/2019 ? Status: ?? Signed Out ?Date Complete: ? 02/02/2019 ? By: ??Lita Grant ? Date Reported: ? 02/03/2019 ? Interpretation Description Oncotype DX assay performed by [email or web address] The OncotypeDX breast cancer assay was requested by the patient and Dr. Edgar Lovett. ??The assay is intended for newly diagnosed patients with Stage I or II, node negative, estrogen receptor positive breast cancer. ??The assay uses RT-PCR to determine the expression of 21 genes in formalin-fixed paraffin-embedded tumor tissue. A paraffin-embedded tissue block ([id number], A7) was sent to [facility] for testing. ??The reported recurrence score was 29. ??In a validation study, patients with 1-3 positive nodes and the same recurrence score treated with Tamoxifen or an Aromatase Inhibitor had an average rate of distant recurrence at 9 years of 23% (95% CI: plus/minus 6%). ? Document reviewed and electronically signed by: ? ESVIN CAMPUZANO MD ? Report date: 02/03/2019 By the signature above, the attending physician certifies that he/she has personally conducted a gross and/or microscopic examination of the described specimens and rendered or confirmed the above diagnosis. End of Report [facility] 01/26/2019 01/26/2019 15: 17 EDT Edgar Lovett MD PATHOLOGY ORDERABLES [facility] [address] [place] [address] documented in this encounter Visit Diagnoses Not on filedocumented in this encounter Care Teams Shovel Loader Operator Relationship Specialty Start Date End Date Maya Burden MD [address] [place] [address] [place] [address] PCP - General 10/02/11 11/08/19 documented as of this encounter
--- OUTSIDE RECORDS SUMMARY | 2024-02-29 01:28 | XMS_ITS | Continuity of Care Document ---
Author Name [facility] Organization [facility] Care Team Providers Care Developmental Specialist Name Role Phone [facility] Unavailable Unavailable Social History Combined list of available smoking, tobacco, and other social history from Department of Defense and Veterans Affairs facilities. Social History Type Response Date Comment Sourc e This section is an empty social history section. [facility]
--- OUTSIDE RECORDS SUMMARY | 2024-02-29 01:28 | XMS_ITS | Encounter Summary ---
Author Organization [facility] Address [address] [place] [address] Care Team Providers Care Health And Physical Education Professor Name Role Phone Unavailable Primary Care Provider Unavailabl e Encounter Details Date Type Department Care Team (Late st Contact Info) Description 07/19/2003 Results Only [facility] - Map conversion [address] [place] [address] Irving Wolfe MD [address] [place] [address] Social History Tobacco Use Types Packs/Day Years [...] Date/Time Associated Diagnosis Comments SURGICAL PATHOLOGY Routine 07/19/2003 0:00 EST documented in this encounter Results * SURGICAL PATHOLOGY (07/19/2003 0:00 EST) Pathology Report: SURGICAL PATHOLOGY REPORT Reports generated via electronic interface contain original data; however they are lacking the format of the original report. Caution should be taken when reading/interpreti ng unformatted reports. Name: ? JENNIFER SANTIZO ? Accession #: ? [id number] ? : ? 1945 (Age: 58) ??F ? Collect Date: ? 07/19/2003 ? Location: ? [facility] ? Receive Date: ? 07/19/2003 ? Provider: HEAVEN WOLFE MD Copy to: MARIZA GAMBINO MD ? Final Pathologic Diagnosis: ? Colon, 25.0 cm, polyp, biopsy: 1. ?Tubular adenoma. 2. ?No high grade dysplasia identified. Document reviewed and electronically signed by: Lidya Bergeron MD Report ??Date: 07/23/2003 14:18 By the signature above, the attending physician certifies that he/she has personally conducted a gross and/or microscopic examination of the described specimens and rendered or confirmed the above diagnosis. Specimen(s) Received: ? Polyp @ 25.0 cm Clinical History: ? Family H/O colon polyps, polyp @ 25.0 cm Gross Description: ? Received in Hollande's fixative labelled Santizo and polyp @ 25.0 cm is a patel-pink 0.6 x 0.5 x 0.5 cm soft tissue fragment. ??The specimen is bisected and is entirely submitted in one cassette. ??(Luis Rodriguez)/[facility] End of Report JUNIOR MICHAEL 07/19/2003 07/19/2003 15: 19 EST Irving Wolfe MD PATHOLOGY ORDERABLES [facility] [address] [place] [address] documented in this encounter Visit Diagnoses Not on filedocumented in this encounter
--- OUTSIDE RECORDS SUMMARY | 2024-02-29 01:28 | XMS_ITS | Encounter Summary ---
Author Organization [facility] Address [address] [place] [address] Care Team Providers Care Spinning Mule Tender Name Role Phone Maya Gambino MD Primary Care Provider [phone] Encounter Details Date Type Department Care Team (Late st Contact Info) Description 03/13/2015 Results Only [facility] [phone] Lucero Albarado, [address] [place], [place] [id number] Social History Tobacco Use Types Packs/Day Years [...] Date/Time Associated Diagnosis Comments SURGICAL PATHOLOGY Routine 03/13/2015 16 :08 EDT documented in this encounter Results * SURGICAL PATHOLOGY (03/13/2015 16:08 EDT) Pathology Report: SURGICAL PATHOLOGY REPORT Reports generated via electronic interface contain original data; however they are lacking the format of the original report. Caution should be taken when reading/interpreting unformatted reports. Name: ? JENNIFER SANTIZO ? Accession #: ? [id number] ? : ? 1945 (Age: 69) ??F ? Collect Date: ? 03/13/2015 ? Location: ? [facility] ? Receive Date: ? 03/14/2015 ? Provider: LUCERO ALBARADO DO Copy to: MAYA GAMBINO MD ? Final Pathologic Diagnosis: A. ?SKIN OF NASAL DORSUM, SHAVE BIOPSY: - Actinic keratosis. B. ?SKIN OF NASAL TIP, MIDLINE, SHAVE BIOPSY: - Hidrocystoma. Microscopic Description: A. ??The stratum corneum is thickened by orthohyperkeratosis with foci of parakeratosis. ??The epidermis is focally thickened with elongate and bulbous rete ridges. ??The basal keratinocytes show a variable degree of atypia including nuclear enlargement, dispolarity, and hyperchromasia. ??The dermis is marked by solar elastosis, vascular ectasia and a lymphohistiocytic infiltrate. ? B. ??The epidermis is unremarkable. ??Within the dermis, there is a cyst lined by a simple cuboidal epithelium. ??The cuboidal cells have round, regular nuclei. The cyst has a scant amount of amorphous contents. ??(Dr. Coombs)/[facility] Document reviewed and electronically signed by: CHAKA COOMBS MD Report ??Date: 03/18/2015 15:16 By the signature above, the attending physician certifies that he/she has personally conducted a gross and/or microscopic examination of the described specimens and rendered or confirmed the above diagnosis. Specimen(s) Received: A. ??Nasal dorsum B. ??Midline nasal tip Clinical History: H/O basal cell skin cancer; nonhealing lesions; clinical diagnosis code: 239.2 Gross Description: A. ?Received in formalin labelled with proper patient identification (initials B, J) and nasal dorsum is a shave biopsy of patel-red finely granular skin (0.8 x 0.3 x 0.1 cm). ??The specimen is submitted intact in A1. B. ?Received in formalin labelled with proper patient identification (initials B, J) and nasal tip are two shave biopsies of pink-white skin (0.2 x 0.1 x 0.1 cm and 0.2 x 0.2 x 0.1 cm). The specimens are entirely submitted as B1. Stiven Domingo 03/15/2015 9:31 AM End of Report [facility] 03/13/2015 16:0 8 EDT 03/14/2015 16:08 EDT Lucero Albarado DO PATHOLOGY ORDER LUIS ENRIQUE [facility] [address] [place] [address] documented in this encounter Visit Diagnoses Not on filedocumented in this encounter Care Teams Spinning Mule Tender Relationship Specialty Start Date End Date Maya Gambino MD [address] [place] [address] [place] [address] PCP - General 10/02/11 11/08/19 documented as of this encounter
--- OUTSIDE RECORDS SUMMARY | 2024-02-29 01:28 | XMS_ITS | Encounter Summary ---
Author Organization [facility] Address [address] [place] [address] Care Team Providers Care Control System Manager Name Role Phone Navid Avendaño MD Primary Care Provider [phone] Encounter Details Date Type Department Care Team (Late st Contact Info) Description 08/20/2021 Lab Requisition [facility] Pathology & Laboratory Medicine - [facility] [address] [place] [address] Outr Resulting Lab, Provider Social History Tobacco [...] Procedure Name Priority Date/Time Associated Diagnosis Comments FERRITIN Routine 08/20/2021 13:40 EST documented in this encounter Results * FERRITIN (08/20/2021 13:40 EST) Ferritin 108 10 - 291 ng/mL 08/20/2021 23:11 EST [facility] Blood VENOUS BLOOD / Unknown 08/20/2021 13:40 EST 08/20/2021 22:00 EST Provider Outr Resulting Lab CHEMISTRY & BLOOD GAS ORDERABLES [facility] [address] [place] [address] documented in this encounter Visit Diagnoses Not on filedocumented in this encounter Care Teams Control System Manager Relationship Specialty Start Date End Date Navid Avendaño MD [address] [place], [place] [address] [place] [address] PCP - General 11/09/19 documented as of this encounter
--- OUTSIDE RECORDS SUMMARY | 2024-02-29 01:28 | XMS_ITS | Encounter Summary ---
Author Organization [facility] Address [address] [place] [address] Care Team Providers Care Shake Sawyer Name Role Phone Unavailable Primary Care Provider Unavailabl e Encounter Details Date Type Department Care Team (Late st Contact Info) Description 09/23/2011 Results Only [facility] Laboratory Services - [facility] ([facility] [address] [place], [place] [address] Sid Seals MD [address] [place] [address] Social History Tobacco Use Types [...] Date/Time Associated Diagnosis Comments SURGICAL PATHOLOGY Routine 09/23/2011 0:00 EDT documented in this encounter Results * SURGICAL PATHOLOGY (09/23/2011 0:00 EDT) Pathology Report: SURGICAL PATHOLOGY REPORT Reports generated via electronic interface contain original data; however they are lacking the format of the original report. Caution should be taken when reading/interpreti ng unformatted reports. Name: ? JENNIFER SANTIZO ? Accession #: ? [id number] ? : ? 1945 (Age: 66) ??F ? Collect Date: ? 09/23/2011 ? Location: ? [facility] ? Receive Date: ? 09/23/2011 ? Provider: SID SEALS MD Copy to: MARIZA GAMBINO MD ? Final Pathologic Diagnosis: A. ?Stomach, fundus, biopsies: ? 1. Gastric fundic mucosa with proton pump inhibitor effect. B. ?Esophagus, 38 cm, biopsies: ? 1. ??Squamocolumnar junctional mucosa with intestinal metaplasia. ? - Negative for dysplasia. ? C. ?? Colon, cecum, polyp, biopsy: ?1. ?? Inflammatory/hyper plastic polyp. ??See comment. ? D. ?? Colon, descending, polyps, biopsies: ?1. ?? Fragments of hyperplastic polyp(s). See comment. ? E. ?? Colon, sigmoid, 25 cm, polypectomy: ?1. ?? Angiodysplasia (angioectasia). ? F. ?? Colon, rectosigmoid, polyp, biopsies: ?1. ?? Fragments of hyperplastic polyp. ? G. ?? Rectum, polyp, biopsy: ?1. ?? Tubular adenoma. ? Comment: ? Deeper sections have been reviewed on specimens (C) and (D). ?? Document reviewed and electronically signed by: IDA KLEIN MD Report ??Date: 09/28/2011 15:47 By the signature above, the attending physician certifies that he/she has personally conducted a gross and/or microscopic examination of the described specimens and rendered or confirmed the above diagnosis. Specimen(s) Received: A. ?Gastric fundus B. ? Avila's 38 cm esophagus C. ? Cecal polyp D. ? Descending colon polypectomies x4 E. ? Sigmoid polyp 25 cm F. ? Rectosigmoid polyp G. ? Rectal polyp Clinical History: ? H/o adenoma and (+) FH esoph CA (brother at 50) with GERD; A+B ??EGD; C-G colonoscopy Gross Description: ? Received in formalin labelled Jennifer Santizo and #1 gastric fundus are two light patel biopsies measuring 0.6 x 0.3 x 0.2 cm and 0.4 x 0.4 x 0.2 cm. ??The specimens are submitted intact as (A). Received in formalin labelled Sukhdev, Jennifer and #2 ? Avila's at 38 cm esophagus are two light patel biopsies measuring 0.2 x 0.2 x 0.1 cm and 0.4 x 0.3 x 0.2 cm. ??The specimens are submitted intact as (B). Received in formalin labelled Jennifer Santizo and #3 cecal polyp is a 0.2 x 0.2 x 0.1 cm light patel biopsy. ??The specimen is submitted intact as (C). Received in formalin labelled Santizo, Jennifer and #4 descending colon polypectomies x4 are four light patel biopsies which vary in size from 0.2 x 0.2 x 0.2 cm up to 0.5 x 0.3 x 0.2 cm. ??The specimens are submitted intact as (D1) and (D2). Received in formalin labelled Santizo, Jennifer and #5 sigmoid polyp at 25 cm is an ovoid polypoid structure measuring 1.0 x 0.7 x 0.5 cm. ??The resection margin is inked black. ??The specimen is trisected and submitted entirely as (E). Received in formalin labelled Sukhdev, Jennifer and #6 rectosigmoid polyp are three light patel biopsies which vary in size from 0.3 x 0.3 x 0.2 cm up to 0.6 x 0.2 x 0.2 cm. ??The specimens are submitted intact as (F). Received in formalin labelled Jennifer Santizo and #7 rectal polyp is a 0.6 x 0.4 x 0.2 cm light patel polypoid structure. ??The specimen is submitted intact as (G). ??(J LUIS Nguyễn)/[facility] End of Report JUNIOR MICHAEL 09/23/2011 09/23/2011 16: 50 EDT Sid Seals MD PATHOLOGY ORDERABLES [facility] [address] [place] [address] documented in this encounter Visit Diagnoses Not on filedocumented in this encounter
--- OUTSIDE RECORDS SUMMARY | 2024-02-29 01:28 | XMS_ITS | Encounter Summary ---
Author Organization [facility] Address [address] [place] [address] Care Team Providers Care Store Sales Consultant Name Role Phone Maya Gambino MD Primary Care Provider [phone] Encounter Details Date Type Department Care Team (Late st Contact Info) Description 01/15/2015 Results Only [facility] [phone] Maya Gambino MD [address] [place] [address] [place] [address] Social History Tobacco Use Types [...] Diagnosis Comments PAP TEST- RESULT ONLY Routine 01/15/2015 0:00 EDT documented in this encounter Results * PAP TEST- RESULT ONLY (01/15/2015 0:00 EDT) Pathology Report: CYTOPATHOLOGY REPORT Reports generated via electronic interface contain original data; however they are lacking the format of the original report. Caution should be taken when reading/interpreti ng unformatted reports. Name: ? JENNIFER SANTIZO ? Accession #: ? [id number] : ? 1945 (Age: 69) ??F ?Collect Date: ? 01/15/2015 Location: ? [facility] ? Receive Date: ? 01/16/2015 Provider: ?MAYA GAMBINO MD Copy to: ? Specimen/Source: ?Pap Test, Cervix/Endocervix, ThinPrep Imaging System with manual evaluation Last Menstrual Period: ? spotting Hormonal/Contracep tive Status: ? Yes: levothyroxine Other: ? Post menopausal bleeding: vaginal ? SPECIMEN ADEQUACY ? Satisfactory for Evaluation - assessment of transformation zone component not applicable ( e.g. atrophy, vaginal sample, hysterectomy) GENERAL CATEGORIZATION ? Negative for Intraepithelial Lesion or Malignancy INTERPRETATION ? Reactive cellular changes associated with inflammation present (includes repair). ? Document reviewed and electronically signed by: ? YONNY JOHNSON MD [facility] ? Report Date: ??01/25/2015 17:41 End of Report [facility] 01/15/2015 01/16/2015 Maya Gambino MD PATHOLOGY ORDERABLES Performing Organization Address City/State/[facility] Co de Phone Number [facility] [address] [place] [address] documented in this encounter Visit Diagnoses Not on filedocumented in this encounter Care Teams Store Sales Consultant Relationship Specialty Start Date End Date Maya Gambino MD [address] [place] [address] [place] [address] PCP - General 10/02/11 11/08/19 documented as of this encounter
--- OUTSIDE RECORDS SUMMARY | 2024-02-29 01:28 | XMS_ITS | Encounter Summary ---
Author Organization [facility] Address [address] [place] [address] Care Team Providers Care Strap Stitcher Name Role Phone Maya Burden MD Primary Care Provider [phone] Encounter Details Date Type Department Care Team (Late st Contact Info) Description 02/25/2012 Results Only [facility] [phone] Lucero Albarado, [address] [place], [place] [id number] Social History Tobacco Use Types Packs/Day Years [...] Date/Time Associated Diagnosis Comments SURGICAL PATHOLOGY Routine 02/25/2012 0:00 EDT documented in this encounter Results * SURGICAL PATHOLOGY (02/25/2012 0:00 EDT) Pathology Report: SURGICAL PATHOLOGY REPORT Reports generated via electronic interface contain original data; however they are lacking the format of the original report. Caution should be taken when reading/interpreti ng unformatted reports. Name: ? JENNIFER SANTIZO ? Accession #: ? [id number] ? : ? 1945 (Age: 66) ??F ? Collect Date: ? 02/25/2012 ? Location: ? [facility] ? Receive Date: ? 02/25/2012 ? Provider: LUCERO ALBARADO DO Copy to: ? Final Pathologic Diagnosis: ? Skin of nasal tip, excision: 1. ?Residual squamous cell carcinoma, well differentiated, invasive. ? - Margins of excision negative. 2. ?Epidermal reparative change and dermal scar. Document reviewed and electronically signed by: WOO DAWSON MD Report ??Date: 02/29/2012 13:53 By the signature above, the attending physician certifies that he/she has personally conducted a gross and/or microscopic examination of the described specimens and rendered or confirmed the above diagnosis. Specimen(s) Received: ? Nasal tip squamous cell cancer Clinical History: ? Nasal tip squamous cell cancer; clinical diagnosis code: 173.32 Intraoperative Interpretation: ? Nasal tip, squamous cell cancer: [id number]. ?? Nasal tip, squamous cell cancer: ??12 o'clock=blank, 3 o'clock=white, 6 o'clock=blue, 9 o'clock=black. ??Margins negative for tumor. ?? Communicated results in person to Dr. Albarado at 10:27 AM on 02/25/12Dr. Nuria Lunsford; 02/25/12 Gross Description: ? Received fresh labelled Santizo, Jennifer and Anasal tip squamous cell Ca is a round patel-white piece of oriented skin measuring 1.0 x 0.9 x 0.3 cm. ??On the surface there is an ill-defined slightly raised lesion measuring 0.5 cm in diameter and located 0.2 cm to the closest 3 o'clock margin. ??The specimen is inked as follows: ??yellow-9 o'clock, black-3 o'clock. ?? The specimen is serially sectioned and entirely submitted for frozen section with the interpretation as rendered above. ??The specimen is entirely submitted as follows: BLOCK MERINO A1 ?Frozen section FS1A, 12 o'clock tip A2 ?Frozen section FS1B, 6 o'clock tip A3 ?Frozen sections FS1C and FS1D, central sections, 12-6 o'clock (Nuria Chadwick)/[facility] End of Report JUNIOR MICHAEL 02/25/2012 02/25/2012 16: 29 EDT Lucero Albarado DO PATHOLOGY ORDER LUIS ENRIQUE Performing Organization Address City/State/[facility] Co de Phone Number JUNIOR MICHAEL [address] [place] [address] documented in this encounter Visit Diagnoses Not on filedocumented in this encounter Care Teams Strap Stitcher Relationship Specialty Start Date End Date Maya Burden MD [address] [place] [address] [place] [address] PCP - General 10/02/11 11/08/19 documented as of this encounter
--- OUTSIDE RECORDS SUMMARY | 2024-02-29 01:28 | XMS_ITS | Encounter Summary ---
Author Organization [facility] [place] [address] Care Team Providers Care Hamper Maker Name Role Phone Navid Avendaño MD Primary Care Provider [phone] Encounter Details Date Type Department Care Team (Late Contact Info) Description 04/29/2023 Telephone Radiation Oncology at [address] [phone] Rachel Graham Social History Tobacco Use Types Packs/Day Years [...] encounter Miscellaneous Notes * Telephone Encounter - Rachel Graham - 04/29/2023 12:49 PM EDT Called Myesha to go over screening questions for her upcoming Breast MRI, she explained that it wasto hard on her body and she felt that with what her PCP said that about her regular mammo that she would like to pass on getting this MRI. She wants to thank Dr. Shelton for her concern, I offered to have a nurse call and go over the reasons for this scan documented in this encounter Plan of Treatment Upcoming Encounters Date Type Department Care Team (Late Contact Info) Description 03/21/2024 2:30 PM EDT Office Visit Hematology/Oncology at [address] [phone] Edgar Carreon MD [facility] [place] [address] Kadie Gaming APRN [facility] [place] [address] 05/15/2024 3:30 PM EST Office Visit Radiation Oncology at [address] [phone] Patsy Shelton MD [facility] [place] [address] documented as of this encounter Visit Diagnoses Not on filedocumented in this encounter Care Teams Hamper Maker Relationship Specialty Start Date End Date Navid Avendaño MD [address] [place] [address] PCP - General Family Medicine 01/24/19 documented as of this encounter
--- OUTSIDE RECORDS SUMMARY | 2024-02-29 01:28 | XMS_ITS | Encounter Summary ---
Author Organization [facility] Address [address] [place] [address] Care Team Providers Care Milk Hauler Name Role Phone Navid Avendaño MD Primary Care Provider [phone] Encounter Details Date Type Department Care Team (Late st Contact Info) Description 11/10/2019 Lab Requisition [facility] Pathology & Laboratory Medicine - [address] [address] Elio [place], [address] [place], [place] [id number] Follicular cyst of the skin and subcutaneous tissue, unspecified Social History Tobacco Use Types Packs/Day Years Used Date Smoking Tobacco: Never Assessed Sex and Gender Information Value Date Recorded Sex Assigned at Not on file Gender Identity Female 03/04/2020 7:29 EDT Sexual Orientation Not on file documented as of this encounter Plan of Treatment Not on file documented as of this encounter Procedures Procedure Name Priority Date/Time Associated Diagnosis Comments SURGICAL PATHOLOGY Today 11/09/2019 13 :15 EDT Follicular cyst of the skin and subcutaneous tissue, unspecified documented in this encounter Results * SURGICAL PATHOLOGY (11/09/2019 13:15 EDT) Final Diagnosis A. SKIN OF BACK, EXCISION: - Follicular cyst, infundibular type, with rupture, inflammation, and granulation tissue formation. 11/13/2019 11:37 EDT [facility] at 1137 Attestation By the signature below, the attending physician certifies that they have 1) personally conducted a gross and/or microscopic examination of the described specimen(s), and/or personally interpreted the results of laboratory testing of the described specimen(s), and 2) personally rendered or confirmed the above diagnosis. 11/13/2019 11:37 [facility] at 1137 Microscopic Description There is a cyst that is lined by stratified squamous epithelium that matures through a granular layer. The cyst is filled with laminated orthokeratin. Portions of the cyst wall are disrupted. The surrounding dermis is marked by fibrosis, granulation tissue formation, and inflammation. There are foreign body giant cells associated with liberated keratin. 11/13/2019 11:37 [facility] Clinical History Chronic skin cyst, now infected 11/13/2019 11:37 [facility] Gross Description A. Received in formalin labelled with proper patient identification (initials B, J) and A. Infected skin lesion abscess on back is an unoriented elliptical excision of white skin (4.5 x 1.8 cm and is excised to a depth of 1.5 cm.) There is a central irregular granular patel-red area that measures 0.6 x 0.4 cm, and the skin surrounding this area is erythematous. Serial sections reveal a centrally located red soft cystic like structure that communicates with the cutaneous surface and comes to within 0.2 cm of the lateral margins and 0.5 cm of the deep margin. The margins are inked blue. Security Sales Consultant sections are submitted as follows: Block plata: A1-A4- claims customer service representative central sections including closest margins A5- tips, reverse en face Jignesh Jacky 11/10/2019 9:11 11/13/2019 11:37 T [facility] Scanned Images 11/13/2019 11:37 [facility] Tissue TISSUE SPECIMEN FROM SKIN / Unknown 11/09/2019 13:15 EDT 11/10/2019 7:44 EDT Elio [place]field DO PATHOLOGY ORDER LUIS ENRIQUE [facility] [address] [place] [address] documented in this encounter Visit Diagnoses Diagnosis Follicular cyst of the skin and subcutaneous tissue, unspecified documented in this encounter Care Teams Milk Hauler Relationship Specialty Start Date End Date Navid Avendaño MD [facility] [place] [address] PCP - General 11/09/19 documented as of this encounter
--- OUTSIDE RECORDS SUMMARY | 2024-02-29 01:28 | XMS_ITS | Encounter Summary ---
Author Organization [facility] Address [facility] [place] [place] [address] Care Team Providers Care Aircraft Fuselage Framer Name Role Phone Navid Avendaño MD Primary Care Provider [phone] Encounter Details Date Type Department Care Team (Latest Contact Info) Description 08/17/2023 Travel Social History Tobacco Use Types Packs/Day [...] 2:30 PM EDT Office Visit Hematology/Oncology at [address] [phone] Edgar Carreon MD [facility] [place] [address] Kadie Gaming APRN [facility] [place] [address] 05/15/2024 3:30 PM EST Office Visit Radiation Oncology at [address] [phone] Patsy Shelton MD [facility] [place] [address] documented as of this encounter Visit Diagnoses Not on filedocumented in this encounter Care Teams Aircraft Fuselage Framer Relationship Specialty Start Date End Date Navid Avendaño MD [address] [place] [address] PCP - General Family Medicine 01/24/19 documented as of this encounter
--- OUTSIDE RECORDS SUMMARY | 2024-02-29 01:28 | XMS_ITS | Encounter Summary ---
Author Organization [facility] Address [facility] [place] [place] [address] Care Team Providers Care Gardener Name Role Phone Navid Avendaño MD Primary Care Provider [phone] Reason for Visit * Reason Onset Date Comments Other 04/13/2023 Hot flashes Encounter Details Date Type Department Care Team ([facility] Contact Info) Description 04/13/2023 Telephone Hematology/Oncology at [address] [phone] Penny Chew RN Other (Hot flashes) Social History Tobacco Use Types Packs/Day Years [...] encounter Miscellaneous Notes * Telephone Encounter - Penny Chew RN - 04/13/2023 4:48 PM EDT Myesha states hot flashes very hard for her wants something for them. Reviewed with Dr. Carreon and Effexor 37.5 mg was ordered and sent to her pharmacy. She will call with any issues. documented in this encounter Plan of Treatment Upcoming Encounters Date Type Department Care Team ([facility] Contact Info) Description 03/21/2024 2:30 PM EDT Office Visit Hematology/Oncology at [address] [phone] Edgar Carreon MD [facility] [place] [address] Kadie Gaming APRN [facility] [place] [address] 05/15/2024 3:30 PM EST Office Visit Radiation Oncology at [address] [phone] Patsy Shelton MD [facility] [place] [address] documented as of this encounter Visit Diagnoses Not on filedocumented in this encounter Care Teams Gardener Relationship Specialty Start Date End Date Navid Avendaño MD [address] [place], [place] [address] PCP - General Family Medicine 01/24/19 documented as of this encounter
--- OUTSIDE RECORDS SUMMARY | 2024-02-29 01:28 | XMS_ITS | Encounter Summary ---
Author Organization [facility] Address [address] [place] [address] Care Team Providers Care Restaurant Host/Hostess Name Role Phone Maya Burden MD Primary Care Provider [phone] Encounter Details Date Type Department Care Team (Late st Contact Info) Description 04/06/2012 Results Only [facility] [phone] Lucero Albarado, [address] [place], [place] [id number] Social History Tobacco Use Types Packs/Day Years [...] Date/Time Associated Diagnosis Comments SURGICAL PATHOLOGY Routine 04/06/2012 0:00 EDT documented in this encounter Results * SURGICAL PATHOLOGY (04/06/2012 0:00 EDT) Pathology Report: SURGICAL PATHOLOGY REPORT Reports generated via electronic interface contain original data; however they are lacking the format of the original report. Caution should be taken when reading/interpreti ng unformatted reports. Name: ? JENNIFER SANTIZO ? Accession #: ? [id number] ? : ? 1945 (Age: 66) ??F ? Collect Date: ? 04/06/2012 ? Location: ? [facility] ? Receive Date: ? 04/07/2012 ? Provider: LUCERO ALBARADO DO Copy to: ? Final Pathologic Diagnosis: A. ?Skin of ear, left superior helix, shave biopsy: 1. ?Solar lentigo. ??See comment. B. ?Skin of ear, left anterior helix, shave biopsy: 1. 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 ?? 2. ? Actinic keratosis, incidental. C. ?Skin of ear, right superior helix, shave biopsy: 1. ?Angiofibroma, inflamed. ?? Comment: ? In specimens (A) and (B), the features are those of a solar lentigo/early seborrheic keratosis. ??In specimen (B), there are superimposed changes of lichen simplex chronicus as well as an incidental actinic keratosis. ??Despite deeper levels on all three specimens, there is no evidence of an infiltrative neoplasm nor definitive evidence of a melanocytic proliferation. ??This case was discussed with Dr. Albarado's office. ??(Dr. Dawson)/osei Document reviewed and electronically signed by: WOO DAWSON MD Report ??Date: 04/11/2012 13:48 By the signature above, the attending physician certifies that he/she has personally conducted a gross and/or microscopic examination of the described specimens and rendered or confirmed the above diagnosis. Specimen(s) Received: A. ?Left superior helix ear B. ? Left anterior helix ear C. ? Right superior helix ear Clinical History: ? Hx skin cancer; per Dr. Albarado's office, lesions on left ear were pigmented; linical diagnosis code: ??238.2 Gross Description: ? Received in formalin labelled Santizo, Jennifer and left superior helix ear is a 0.6 x 0.4 cm irregular shave biopsy of patel-white, scaled skin. ??Also received is a 0.2 x 0.2 x 0.1 cm irregular patel-white skin fragment. ??The specimen is entirely submitted as (A1) shave bisected and (A2) skin fragment intact. Received in formalin labelled Santizo, Jennifer and left antihelix ear is a 0.7 x 0.5 x 0.1 cm irregular white, scaled papule. ??The specimen is bisected and entirely submitted as (B). Received in formalin labelled Santizo, Jennifer and Rt superior ear helix is a 0.6 x 0.4 cm irregular shave biopsy of patel-white skin. ??The specimen is bisected and entirely submitted as (C). ??(Nuria Chadwick)/[facility] End of Report [facility] 04/06/2012 04/07/2012 16: 05 EDT Lucero Albarado DO PATHOLOGY ORDER LUIS ENRIQUE [facility] [address] [place] [address] documented in this encounter Visit Diagnoses Not on filedocumented in this encounter Care Teams Restaurant Host/Hostess Relationship Specialty Start Date End Date Maya Burden MD [address] [place] [address] [place] [address] PCP - General 10/02/11 11/08/19 documented as of this encounter
--- OUTSIDE RECORDS SUMMARY | 2024-02-29 01:28 | XMS_ITS | Encounter Summary ---
Author Organization [facility] Address [address] [place] [address] Care Team Providers Care Welding Equipment Sales Representative Name Role Phone Navid Avendaño MD Primary Care Provider [phone] Encounter Details Date Type Department Care Team (Late st Contact Info) Description 12/21/2019 Lab Requisition [facility] Pathology & Laboratory Medicine - [facility] [address] [place] [address] Outr Resulting Lab, Provider Social History Tobacco [...] Date/Time Associated Diagnosis Comments HOLD SST Today 12/21/2019 13:00 EDT SPEP, INCLUDES QUANTITATION OF MONOCLONAL SPIKE Today 12/21/2019 13:00 EDT HAPTOGLOBIN Today 12/21/2019 13:00 EDT documented in this encounter Results * HOLD SST (12/21/2019 13:00 EDT) Hold Hold 12/21/2019 22:01 EDT [facility] Blood VENOUS BLOOD / Unknown 12/21/2019 13:00 EDT 12/21/2019 21:00 EDT Provider Outr Resulting Lab LAB INFO SER VICE AND SUPPORT & PHONE RESULT Performing Organization Address City/State/[facility] Co de Phone Number [facility] [address] [place] [address] * (ABNORMAL) SPEP, INCLUDES QUANTITATION OF MONOCLONAL SPIKE (12/21/2019 13:00 EDT) Total Protein 6.9 6.3 - 8.2 g/dL 12/22/2019 14:18 EDT [facility] Albumin % 58.5 55.8 - 66.1 % 12/22/2019 14:18 EDT [facility] Alpha-1 % 4.4 2.9 - 4.9 % 12/22/2019 14:18 EDT [facility] Alpha-2 % 11.2 7.1 - 11.8 % 12/22/2019 14:18 EDT [facility] Beta % 13.9(H) 8.4 - 13.1 % 12/22/2019 14:18 EDT [facility] Gamma % 12.0 11.1 - 18.8 % 12/22/2019 14:18 EDT [facility] SPEP Comment No apparent monoclonal protein seen on serum electrophoresis 12/22/2019 14:18 T [facility] Comment:See scanned/suppleme ntary report. Blood VENOUS BLOOD / Unknown 12/21/2019 13:00 EDT 12/21/2019 20:58 EDT Provider Outr Resulting Lab CHEMISTRY & BLOOD GAS ORDERABLES Performing Organization Address [facility] Co de Phone Number [facility] [address] [place] [address] * (ABNORMAL) HAPTOGLOBIN (12/21/2019 13:00 EDT) Haptoglobin 207(H) 32 - 197 mg/dL 12/22/2019 11:15 EDT [facility] Blood VENOUS BLOOD / Unknown 12/21/2019 13:00 EDT 12/21/2019 20:58 EDT Provider Outr Resulting Lab CHEMISTRY & BLOOD GAS ORDERABLES Performing Organization Address [facility]/ZIP Co de Phone Number [facility] [address] [place] [address] documented in this encounter Visit Diagnoses Not on filedocumented in this encounter Care Teams Welding Equipment Sales Representative Relationship Specialty Start Date End Date Navid Avendaño MD [address] [place] [address] PCP - General 11/09/19 documented as of this encounter
--- OUTSIDE RECORDS SUMMARY | 2024-02-29 01:28 | XMS_ITS | Encounter Summary ---
Author Organization [facility] Address [address] [place] [address] Care Team Providers Care Skatesman Name Role Phone Maya Burden MD Primary Care Provider [phone] Encounter Details Date Type Department Care Team (Late st Contact Info) Description 11/11/2018 Results Only [facility] [phone] Sonya Short MD [id number] [address] [place], [place] [id number] Social History Tobacco Use Types Packs/Day Years [...] Date/Time Associated Diagnosis Comments SURGICAL PATHOLOGY Routine 11/11/2018 16 :05 EDT documented in this encounter Results * SURGICAL PATHOLOGY (11/11/2018 16:05 EDT) Pathology Report: SURGICAL PATHOLOGY REPORT Reports generated via electronic interface contain original data; however they are lacking the format of the original report. Caution should be taken when reading/interpreting unformatted reports. Name: ? JENNIFER SANTIZO ? Accession #: ? [id number] ? : ? 1945 (Age: 73) ??F ?Collect Date: ? 11/11/2018 ? Location: ? [facility] ? Receive Date: ? 11/11/2018 ? Provider: SONYA SHORT MD Copy to: CELIA CAICEDO MD ? Final Pathologic Diagnosis: BREAST, LEFT, SITE NOT OTHERWISE SPECIFIED, CORE NEEDLE BIOPSY: - Adenocarcinoma, invasive, ductal type with micropapillary features, nuclear grade 2. See comment. Comment: Estrogen and progesterone receptor assays and Her2 studies have been ordered (block 1) and results will be issued in separate procedure reports. Cigar Head Piercer slides of this case were reviewed at the intradepartmental consultation conference. Dr. Miesha Cunningham 11/14/2018 5:19 PM ? Document reviewed and electronically signed by: ? MIESHA CUNNINGHAM MD ? Report ??Date: 11/15/2018 14:53 By the signature above, the attending physician certifies that he/she has personally conducted a gross and/or microscopic examination of the described specimens and rendered or confirmed the above diagnosis. Clinical History: Left breast mass ? Gross Description: ? Received in formalin labelled with proper patient identification (initials B, J) and L breast mass for BX are three yellow and white fibrofatty tissue cores (1.6 cm to 2.0 cm in length, and each 0.2 cm in diameter). Entirely submitted in 1. Time removed from patient: 958 hours 11/11/2018 Time placed in formalin: 958 hours 11/11/2018 Time out of formalin: 0130 hrs. 11/12/2018 CURTIS Lloyd (ASCP) 11/11/2018 4:42 PM ? Her 2 IMMUNOPEROXIDASE REPORT ? Date Ordered: ? 11/15/2018 ? Status: ?? Signed Out ?Date Complete: ? 11/15/2018 ? By: ??Scarlet Loeraach ? Date Reported: ? 11/15/2018 ? Interpretation ASSAY RESULTS Her2 SCORE: ?1+ TUMOR LOCATION: ??Left breast ? COLD ISCHEMIC TIME AND TOTAL FORMALIN FIXATIVE TIME APPROPRIATE: Yes CELLS WITH COMPLETE MEMBRANE STAINING: ??None MEMBRANE STAINING INTENSITY: ??Faint PARTIAL MEMBRANE STAINING: ??Present in 20% of cells CYTOPLASMIC STAINING: Absent STAINING PATTERN: Homogeneous STAINING IN BENIGN EPITHELIUM: Absent THE HER2 ASSAY PERFORMED IS INTERPRETED NEGATIVE. Description Tissue submitted: Paraffin embedded tissue block labelled [id number] (#1) from [facility]. Fixative: ??Formalin ??(This immunohistochemical assay is intended for paraffin-embedded tissue fixed in 10% neutral buffered formalin for 6-72 hours; 18-24 hours with maximum tissue thickness of 3-4 millimeters is recommended for best assay performance. ??Her2 should not be performed on alcohol fixed tissues.) The assay was performed under appropriate conditions according to the collision center manager's instructions with appropriate assay and tissue controls using an Anti-Her2 (4B5) Rabbit Monoclonal Antibody ([place]). Her2 IHC Scoring Guidelines (invasive tumor component only) 0 ? negative ?No staining or membrane staining in less than 10% of cells 1+ ? negative ?Faint partial membrane staining in more than 10% of cells 2+ ? weakly positive ?Moderate complete membrane staining in more than 10% of cells 3+ ? positive ? Strong complete membrane staining in more than 10% of cells Reference: ??ASCO-CAP Recommendations for Her2 Testing. J Clin Oncol 2013; epub (www.jco.org Apr 10, 2013) ? NOTE: ??One or more of the reagents used in immunoperoxidase testing in this case may not have been cleared or approved by the U.S. Food and Drug Administration (FDA). ??The FDA has determined that such clearance or approval is not necessary. ??These tests are used for clinical purposes. ??They should not be regarded as investigational or for research. ??These reagents' performance characteristics have been determined by [facility] and/or by the referring laboratory. ??The positive and negative controls worked appropriately. If immunoperoxidase staining has been performed on alcohol fixed cytology specimens, which has not been fully validated, the assays should be interpreted with caution and correlated with clinical data. ??This laboratory is certified under the Clinical Laboratory Improvement Amendments of 1988 (CLIA-88) as qualified to perform high complexity clinical laboratory testing. Document reviewed and electronically signed by: ? SAUD RUGGIERO MD PHD ? Report date: 11/15/2018 By the signature above, the attending physician certifies that he/she has personally conducted a gross and/or microscopic examination of the described specimens and rendered or confirmed the above diagnosis. ESTROGEN AND PROGESTERONE RECEPTOR IMMUNOPEROXIDASE STAINS ? Date Ordered: ? 11/16/2018 ? Status: ?? Signed Out ?Date Complete: ? 11/16/2018 ? By: ??Scarlet Black ? Date Reported: ? 11/16/2018 ? Interpretation BREAST, LEFT, SITE NOT OTHERWISE SPECIFIED, CORE NEEDLE BIOPSY: - Adenocarcinoma, invasive. ?? - Positive for estrogen receptors (in greater than 90% of tumor cells). - Nuclear staining intensity: Strong. ?? - Positive for progesterone receptors (in greater than 90% of tumor cells). - Nuclear staining intensity: ??Strong. Comment Cold ischemic time and total formalin fixation time appropriate: Yes. ? Description Tissue submitted: Paraffin embedded tissue block labelled [id number] (#1) from [facility]. Immunohistochemical assays for estrogen receptors (SP1, [place]) and progesterone receptors (16, Leica) have been performed on this specimen. Intranuclear receptor complexes were visualized on tissue sections using an HRP polymer immunohistochemical technique. ??This assay is intended for paraffin-embedded tissue fixed in 10% neutral buffered formalin for 6-72 hours. ? Results are reported as negative (<1% nuclear staining) or positive with the proportion of positive cells noted. ??Estrogen receptor expression in <5% of tumor cells may not have a strong interaction with estrogen receptor modulators such as Tamoxifen. ?? Reference: ??ASCO-CAP Guideline Recommendations for IHC testing of ER and [place]. J Clin Oncol 2010;28:7805-9274. NOTE: ??One or more of the reagents used in immunoperoxidase testing in this case may not have been cleared or approved by the U.S. Food and Drug Administration (FDA). ??The FDA has determined that such clearance or approval is not necessary. ??These tests are used for clinical purposes. ??They should not be regarded as investigational or for research. ??These reagents' performance characteristics have been determined by [facility] and/or by the referring laboratory. ??The positive and negative controls worked appropriately. If immunoperoxidase staining has been performed on alcohol fixed cytology specimens, which has not been fully validated, the assays should be interpreted with caution and correlated with clinical data. ??This laboratory is certified under the Clinical Laboratory Improvement Amendments of 1988 (CLIA-88) as qualified to perform high complexity clinical laboratory testing. Document reviewed and electronically signed by: ? SAUD RUGGIERO MD PHD ? Report date: 11/16/2018 By the signature above, the attending physician certifies that he/she has personally conducted a gross and/or microscopic examination of the described specimens and rendered or confirmed the above diagnosis. End of Report [facility] 11/11/2018 16:0 5 EDT 11/11/2018 16:05 EDT Sonya Short MD PATHOLOGY ORDERA ROGER [facility] [address] [place] [address] documented in this encounter Visit Diagnoses Not on filedocumented in this encounter Care Teams Skatesman Relationship Specialty Start Date End Date Maya Burden MD [address] [place] [address] [place] [address] PCP - General 10/02/11 11/08/19 documented as of this encounter
--- OUTSIDE RECORDS SUMMARY | 2024-02-29 01:28 | XMS_ITS | Encounter Summary ---
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 Procedures NM Bone Scan Whole Body Patsy Shelton MD [facility] [place] [address] Referral ID Status Reason Start Date Expiration Date Visits Requested Visits Authorized [id number] New Request Specialty Service Requested 11/15/2023 05/17/2025 1 1 Reason for Visit * Reason Comments Follow-up Encounter Details Date Type Department Care Team (Late st Contact Info) Description 11/15/2023 2:30 PM EDT Office Visit Radiation Oncology at [address] [phone] Patsy Shelton MD [facility] [place] [address] 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 [...] Sign Reading Time Taken Comments Blood Pressure - - Pulse 94 11/15/2023 2:49 PM EDT Temperature 37 ??C (98.6 ??F) 11/15/2023 2:4 9 PM EDT Respiratory Rate 16 11/15/2023 2:49 PM EDT Oxygen Saturation 96% 11/15/2023 2:4 9 PM EDT Inhaled Oxygen Concentration - - Weight 100.2 kg (220 lb 12. 8 oz) 11/15/2023 2:49 PM EDT with shoes Height - - Body Mass Index 42.78 08/17/2023 10:22 AM EST documented in this encounter Patient Instructions * Patient Instructions* Patsy Shelton MD - 11/15/2023 2:30 PM EDT Someone will call you to schedule bone scan for evaluation of left chest pain. Someone will call you to schedule phone followup with me about a week after the bone scan. documented in this encounter Progress Notes * Patsy Shelton MD - 11/15/2023 2:30 PM EDT Images from the original note were not included. CC: Sched'd fu s/p xrt completion. 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 S/p 1 cycle docetaxel/cyclophosphamide followed by discontinuation of chemo after infusion rxn to 2nd cycle. Letrozole started after xrt completion, & she continues on it. 01/01/21 Dr. Jewell, Derm, inflamed seborrheic keratoses tx'd w/LN2, rtc 1 mo. 02/26/23 R mmg: Neg. Note of dense breast tissue. S: L chest wall/ribcage pain. Past Medical History: Diagnosis Date Anxiety Avila esophagus Hx of adenomatous polyp of colon Hyperlipidemia Hypertension Hypothyroid Hypothyroid Squamous cell skin cancer No lupus/scleroderma. Obstructive sleep apnea. DM type 2. Periodic limb movement disorder. Past Surgical History: Procedure Laterality Date BREAST BIOPSY SECTION ENDOMETRIAL BIOPSY PRO LAP, PELVIC LYMPHADENECTOMY/BX N/A 03/28/2015 LAPAROSCOPY,W\BILATERAL TOTAL PELVIC LYMPHADENECTOMY, PERIAORTIC LYMPH NODE SAMPLING, ROBOTIC performed by Anthony Belle MD at [facility] MAIN OR PRO LAPAROSCOPY W TOT HYSTERECTUTERUS <=250 GRAM W TUBE/OVARY N/A 03/28/2015 LAPAROSCOPY,TOTAL HYST, UTERUS<250GM, EVER TYBE &/OR OVARY, ROBOTIC ASSIST performed by Anthony Belle MD at [facility] MAIN OR Cataract surg OU. Physical Exam Constitutional: General: Pulse 94 Temp 37 ??C (98.6 ??F) (Temporal) Resp 16 Wt 100.2 kg (220 lb 12.8 oz) Comment: with shoes SpO2 96% BMI 42.78 kg/m?? She is not in acute distress. Appearance: She is well-developed. She is not diaphoretic. Comments: HENT: Head: Normocephalic and atraumatic. Eyes: General: No scleral icterus. Right eye: No discharge. Left eye: No discharge. Conjunctiva/sclera: Conjunctivae normal. Neck: Trachea: No tracheal deviation. Pulmonary: Effort: Pulmonary effort is normal. No respiratory distress. Breath sounds: No stridor. Chest: Breasts: Right: No inverted nipple, mass, nipple discharge, skin change, tenderness, axillary adenopathy or supraclavicular adenopathy. Left: L chest wall/ribcage tender to deep palpation. Lymphedema L chest wall. No axillary adenopathy or supraclavicular adenopathy. Abdominal: General: There is no distension. Palpations: Abdomen is soft. There is no mass. Tenderness: There is no abdominal tenderness. There is no guarding or rebound. Musculoskeletal: General: No tenderness or deformity. Normal range of motion. Cervical back: Normal range of motion and neck supple. No tenderness. Lymphadenopathy: Head: Right side of head: No submental, submandibular, preauricular, posterior auricular or occipital adenopathy. Left side of head: No submental, submandibular, preauricular, posterior auricular or occipital adenopathy. Cervical: No cervical adenopathy. Upper Body: Right upper body: No supraclavicular or axillary adenopathy. Left upper body: No supraclavicular or axillary adenopathy. Skin: General: Skin is warm and dry. Neurological: Mental Status: She is alert and oriented to person, place, and time. Cranial Nerves: No cranial nerve deficit. Motor: No abnormal muscle tone. Coordination: Coordination normal. Gait: Gait normal. Psychiatric: Mood and Affect: Mood normal. Behavior: Behavior normal. Thought Content: Thought content normal. Judgment: Judgment normal. A/P: L chest wall discomfort likely due to postop & post xrt fibrosis & lymphedema, however, should obtain bone scan to r/o met dz. P: Bone scan. Phone followup to discuss bone scan result. If bone scan neg for met dz, refer to PT for lymphedematx & consider trental & vit E. 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
--- OUTSIDE RECORDS SUMMARY | 2024-02-29 01:28 | XMS_ITS | Clinical Summary ---
Author Organization [facility] Address [address] [place] [address] Care Team Providers Care Playground Director Name Role Phone Navid Avendaño MD Primary Care Provider [phone] Social History Tobacco Use Types Packs/Day Years Used Date Smoking Tobacco: Never Assessed Interpersonal Safety Answer Date Record ed Physically Hurt Never 02/04/2020 Verbally Threaten Not on file 02/04/2020 Sex and Gender Information Value Date Recorded Sex Assigned at Not on file Gender Identity Female 03/04/2020 7:29 EDT Sexual Orientation Not on file Plan of Treatment Health Maintenance Due Date Last Done Comments Hepatitis C Screen 1945 RSV Immunization ( o r 60+ Years) (1 - 1-dose 60+ series) 2006 Fall Risk Screening 2011 COVID-19 Vaccine ( season) 2023 Care Teams Playground Director Relationship Specialty Start Date End Date Navid Avendaño MD [address] [place] [address] PCP - General 11/09/19
--- OUTSIDE RECORDS SUMMARY | 2024-02-29 01:28 | XMS_ITS | Encounter Summary ---
Author Organization [facility] Address [address] [place] [address] Care Team Providers Care Loss Prevention And Safety Manager Name Role Phone Maya Burden MD Primary Care Provider [phone] Encounter Details Date Type Department Care Team (Late st Contact Info) Description 02/08/2012 Results Only [facility] [phone] Lucero Albarado, [address] [place], [place] [phone] Social History Tobacco Use Types Packs/Day Years [...] Date/Time Associated Diagnosis Comments SURGICAL PATHOLOGY Routine 02/08/2012 0:00 EDT documented in this encounter Results * SURGICAL PATHOLOGY (02/08/2012 0:00 EDT) Pathology Report: SURGICAL PATHOLOGY REPORT Reports generated via electronic interface contain original data; however they are lacking the format of the original report. Caution should be taken when reading/interpreting unformatted reports. Name: ? JENNIFER SANTIZO ? Accession #: ? [id number] ? : ? 1945 (Age: 66) ??F ? Collect Date: ? 02/08/2012 ? Location: ? [facility] ? Receive Date: ? 02/09/2012 ? Provider: LUCERO ALBARADO DO Copy to: ? Final Pathologic Diagnosis: A. ?Skin of forehead, left, shave biopsy: 1. ?Epidermal hyperplasia with superficial erosion and parakeratosis. See microscopic and comment. B. ?Skin of cheek, left, shave biopsies: 1. ?Epidermal hyperplasia and hyperkeratosis. ?? Comment: ? In specimen (A), the histologic features are relatively non-specific and predominantly show features of excoriation. ??The adjacent epidermis shows variable hyperplasia and hyperkeratosis. ??The findings could be consistent with an excoriated benign keratosis. ??Despite deeper levels, there is no evidence of an infiltrative neoplasm. ??In specimen (B), the features are predominantly those of epidermal hyperplasia and hyperkeratosis. ??Although relatively non-specific, the findings could represent a solar lentigo/early seborrheic keratosis. Despite deeper levels on blocks (B1) and (B2), there is no evidence of an infiltrative neoplasm. ??(Dr. Dawson)/osei Microscopic Description: (A) ?Sections consist of a shave biopsy of skin. ??There is epidermal hyperplasia with superficial erosion. ??Within this region, is compacted orthohyperkeratosis and parakeratosis. ??The keratinocytes are generally round and reactive. ??Scattered reactive blood vessels and patchy lymphomononuclear inflammation is noted. ??Deeper levels have been examined. ? (B) ?Sections consist of two shave biopsies of skin. ??There is mild irregular epidermal hyperplasia with associated hyperkeratosis. ??The keratinocytes are generally round and reactive. ??There is a mild variability in melanin pigment distribution within the keratinocytes. ??Within the dermis, is solar elastosis. ??Deeper levels have been examined on blocks (B1) and (B2). (Dr. Dawson)/n Document reviewed and electronically signed by: WOO DAWSON MD Report ??Date: 02/11/2012 16:42 By the signature above, the attending physician certifies that he/she has personally conducted a gross and/or microscopic examination of the described specimens and rendered or confirmed the above diagnosis. Specimen(s) Received: A. ?Left forehead B. ? Left cheek ? Clinical History: ? Hx facial squamous cell CA; clinical diagnosis code: 238.2 Gross Description: ? Received in formalin labelled Jennifer Santizo and left forehead is a 0.5 x 0.5 cm, irregular shave biopsy of white skin. ??There is an eccentric, 0.3 x 0.2 x 0.1 cm, ovoid, white, firm, granular papule. ??The specimen is bisected and entirely submitted as (A). Received in formalin labelled SantizoJennifer and left cheek are two irregular shave biopsies of patel-white, scaled skin measuring 0.6 x 0.6 cm and 0.8 x 0.7 cm. ??The specimen is entirely submitted as (B1) larger shave trisected and (B2) smaller shave bisected. ??(Nuria Chadwick)/[facility] End of Report JUNIOR MICHAEL 02/08/2012 02/09/2012 16: 07 EDT Lucero Albarado DO PATHOLOGY ORDER LUIS ENRIQUE JUNIOR MICHAEL [address] [place] [address] documented in this encounter Visit Diagnoses Not on filedocumented in this encounter Care Teams Loss Prevention And Safety Manager Relationship Specialty Start Date End Date Maya Burden MD [address] [place] [address] [place] [address] PCP - General 10/02/11 11/08/19 documented as of this encounter
--- OUTSIDE RECORDS SUMMARY | 2024-02-29 01:28 | XMS_ITS | Encounter Summary ---
Author Organization [facility] Address [address] [place] [address] Care Team Providers Care Data Collector Name Role Phone Maya Burden MD Primary Care Provider [phone] Encounter Details Date Type Department Care Team (Late st Contact Info) Description 02/29/2012 Results Only [facility] [phone] Lucero Albarado, [address] [place], [place] [id number] Social History Tobacco Use Types Packs/Day Years [...] Date/Time Associated Diagnosis Comments SURGICAL PATHOLOGY Routine 02/29/2012 0:00 EDT documented in this encounter Results * SURGICAL PATHOLOGY (02/29/2012 0:00 EDT) Pathology Report: SURGICAL PATHOLOGY REPORT Reports generated via electronic interface contain original data; however they are lacking the format of the original report. Caution should be taken when reading/interpreti ng unformatted reports. Name: ? JENNIFER SANTIZO ? Accession #: ? [id number] ? : ? 1945 (Age: 66) ??F ? Collect Date: ? 02/29/2012 ? Location: ? [facility] ? Receive Date: ? 03/01/2012 ? Provider: LUCERO ALBARADO DO Copy to: ? Final Pathologic Diagnosis: ? Skin of back, shave biopsies: - Fragments of follicular cyst, infundibular type. Document reviewed and electronically signed by: WOO DAWSON MD Report ??Date: 03/03/2012 16:27 By the signature above, the attending physician certifies that he/she has personally conducted a gross and/or microscopic examination of the described specimens and rendered or confirmed the above diagnosis. Specimen(s) Received: ? Back lesion Clinical History: ? Clinical diagnosis code: ??239.2 Gross Description: ? Received in formalin labelled Jennifer Santizo and back lesion shave are two irregular shave biopsies of white skin measuring 0.5 x 0.5 cm and 0.9 x 0.5 cm. ??Also received are two irregular patel-white granular friable tissue fragments measuring 0.4 x 0.3 x 0.1 cm and 0.5 x 0.3 x 0.2 cm. ??The specimen is entirely submitted as follows: BLOCK MERINO A1 ?Larger shave bisected A2 ?Smaller shave bisected A3 ?Tissue fragments intact ([place]enton. Chadwick)/mpl End of Report JUNIOR MICHAEL 02/29/2012 03/01/2012 22: 29 EDT Lucero Albarado DO PATHOLOGY ORDER LUIS ENRIQUE JUNIOR MICHAEL [address] [place] [address] documented in this encounter Visit Diagnoses Not on filedocumented in this encounter Care Teams Data Collector Relationship Specialty Start Date End Date Maya Burden MD [address] [place] [address] [place] [address] PCP - General 10/02/11 11/08/19 documented as of this encounter
--- OUTSIDE RECORDS SUMMARY | 2024-02-29 01:28 | XMS_ITS | Encounter Summary ---
Author Organization [facility] Address [address] [place] [address] Care Team Providers Care Lead Cytogenetic Technologist Name Role Phone Maya Burden MD Primary Care Provider [phone] Encounter Details Date Type Department Care Team (Latest Contact Info) Description 01/26/2019 13:54 EDT - 01/26/2019 13:56 EDT Hospital Encounter [facility] - [address] [address] Edgar Carreon MD [address] [place] [address] [place] [address] Discharge Disposition: Home or Self Care Social History Tobacco Use Types Packs/Day Years Used Date Smoking Tobacco: Never Assessed Sex and Gender Information Value Date Recorded Sex Assigned at Not on file Gender Identity Female 03/04/2020 7:29 EDT Sexual Orientation Not on file documented as of this encounter Discharge Diagnoses Diagnosis C50.912 Malignant neoplasm of unspecified site of left female breast-C50.912[ICD-10-CM] documented in this encounter Discharge Disposition Disposition Code Departure Means Destination Home or Self Care documented in this encounter Plan of Treatment Not on file documented as of this encounter Visit Diagnoses Not on filedocumented in this encounter Care Teams Lead Cytogenetic Technologist Relationship Specialty Start Date End Date Maya Burden MD [address] [place] [address] [place] [address] PCP - General 10/02/11 11/08/19 documented as of this encounter
--- OUTSIDE RECORDS SUMMARY | 2024-02-29 01:29 | XMS_ITS | Encounter Summary ---
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; halfway current use of aromatase inhibitor Social History Tobacco Use Types Packs/Day Years [...] Sign Reading Time Taken Comments Blood Pressure 150/60 03/17/2022 11:43 AM EDT Pulse 83 03/17/2022 11:43 AM EDT Temperature 36.4 ??C (97.5 ??F) 03/17/2022 1 1:43 AM EDT Respiratory Rate 18 03/17/2022 11:4 3 AM EDT Oxygen Saturation 98% 03/17/2022 11: 43 AM EDT Inhaled Oxygen Concentration - - Weight 103.2 kg (227 lb 9.6 oz) 022 11:43 AM EDT Height - - Body Mass Index 44.1 08/06/2021 2:03 PM EST documented in this encounter Progress Notes * Ethel Christianson, INDUSTRIAL MANAGEMENT TEACHER - 03/17/2022 11:30 AM EDT Images from the original note were not included. 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.gr3, LVI-, marilynn neg, ER+/NC+, Her2 IHC neg, LN 2/6, DCIS, [id number] (stage IIA) Patient Active Problem List Diagnosis Code ??? Endometrial adenocarcinoma C54.1 ??? Morbid obesity with BMI of 40.0-44.9, adult E66.01, Z68.41 ??? Anxiety F41.9 ??? Hypothyroidism E03.9 ??? 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 Sleep apnea G47.30 ??? Breast cancer, stage 2, left C50.912 ??? Anemia, iron deficiency D50.9 ??? Actinic keratosis L57.0 ??? Adnexal mass N94.89 ??? Anemia D64.9 ??? Bilateral hand pain M79.641, M79.642 ??? Arthritis of knee, right M17.11 ??? Cyst of skin L72.9 ??? Depressive disorder F32.A ??? Diabetes mellitus E11.9 ??? Essential hypertension I10 ??? Hyperlipidemia E78.5 ??? Diverticulitis of colon K57.32 ??? Primary osteoarthritis of both knees M17.0 ??? Restless legs syndrome G25.81 ??? S/P left mastectomy Z90.12 ??? 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 ??? Ventral hernia K43.9 ??? Right carpal tunnel syndrome G56.01 HPI:Myesha Livingston referred by Dr. Bedolla for consultation on new diagnosis of left breast cancer. She had [...] nodes dissection on December 07, 2018. Postop coursewas uneventful. During the second infusion of docetaxel she developed syncopal episodes with low blood pressure and hypoxia. She was admitted to the hospital where found to have UTI with ceftriaxone.CT scan was negative for pulmonary embolism. Interval history(03/17/22): Ms. Santizo returns to the [facility] for follow-up of breast cancer. She is currently on letrozole daily which she started on May. She is tolerating the letrozole well. She denies any hot flashes. She has some arthritis in her knees and uses a cane to ambulate. No new illnesses or hospitalizations since we saw her last. Denies any cough, shortnessof breath, loss of appetite or breast issues. Her main complaint today is memory loss. She states this has been coming on gradually. She is taking an OTC supplement for memory and she believes it is helping. She has not gotten lost driving but forgets things. She said her PCP told her it was just ag e related. Denies any headaches or vision changes. Gait is steady. She sees her PCP in April.No other focal complaints today. PMH: 2021- Right carpal tunnel surgery Arthritis Arthritis, depression September 2019- Right TKR Spring 2019- large cyst removed from back Syncopal episode on March 14 and admission for syncope, UTI, hypoxia. Cataract, hypertension, hyperlipidemia, Avila's esophagus, hypothyroidism, obesity, squamous cellskin cancer, endometrial cancer in 2006 diverticulosis, anxiety Past Medical History: Diagnosis Date ??? Anxiety ??? Avila esophagus ??? Hx of adenomatous polyp of colon ??? Hyperlipidemia ??? Hypertension ??? Hypothyroid ??? Hypothyroid ??? Squamous cell skin cancer Social History: No interval changes since last visit Non-smoker drinks alcohol occasionally, she is retired, lives by herself. Family History: No interval changes since last visit Grandfather had colon cancer, 2 maternal aunt had breast cancer OBGYN History: No interval changes since last visit Allergies: Allergies Allergen Reactions ??? Adhesive Tape Other reaction(s): blistering ??? Atorvastatin Calcium CIS - myalgias ??? Docetaxel Syncope, 02 desaturation, tachycardia, hypotension. Medications: Your Medications Accurate as of March 17, 2022 11:56 AM. If you have any questions, ask your nurse or doctor. Continued medications, unchanged Dose Details acetaminophen 500 mg Tab Commonly known as: Tylenol As needed Refills: 0 aspirin EC 81 mg Tbec Take 81 mg by mouth daily. 81 mg Refills: 0 Ca carb-Ca gluc-Mg ox-Mg gluco 500 mg calcium -250 mg Tab Take by mouth. Refills: 0 celecoxib 100 mg Cap Commonly known as: CeleBREX Take 100 mg by mouth daily. 100 mg Refills: 0 cholecalciferol (Vitamin D3) 50 mcg (2,000 unit) Cap Take by mouth daily. Refills: 0 Daily Multiple Tab Generic drug: multivitamin Refills: 0 ferrous sulfate 140 mg (45 mg iron) Tbsr Take by mouth. Refills: 0 gabapentin 300 mg Cap Commonly known as: Neurontin Take 300 mg by mouth nightly. 300 mg Refills: 0 letrozole 2.5 mg Tab Commonly known as: Femara Take 1 tablet by mouth daily. 2.5 mg Quantity: 90 tablet Refills: 3 lisinopriL 10 mg Tab Commonly known as: Zestril Daily Refills: 0 metFORMIN 500 mg Tab Commonly known as: Glucophage Twice a day Refills: 0 pravastatin 20 mg Tab Commonly known as: Pravachol Refills: 0 PriLOSEC 20 mg Cpdr 20mg, PO, Once daily Generic drug: omeprazole Refills: 0 senna-docusate 8.6-50 mg Tab Commonly known as: Pericolace Take 1 tablet by mouth daily. 1 tablet Quantity: 60 tablet Refills: 0 sertraline 100 mg Tab Commonly known as: ZOLOFT Refills: 0 Synthroid 75 mcg Tab 75mcg, PO, Once daily Generic drug: levothyroxine Refills: 0 vitamin E 400 unit Cap Daily Refills: 0 Review of Systems: Constitutional: Negative for fever, chills, activity change, and unexpected weight change. HEENT: Negative for sore throat, mouth sores and trouble swallowing. Eyes: Negative. Respiratory: Negative for cough, shortness of breath and wheezing. Cardiovascular: Negative for chest pain, palpitations and leg swelling. Gastrointestinal: Negative for nausea, vomiting, abdominal pain, diarrhea, constipation and abdominal distention. Barretts esophagus. Frequent heartburn. Genitourinary: Negative for dysuria and difficulty urinating. Musculoskeletal: Mild chronic arthralgias especially knees Skin: Negative. Cyst removed from mid back. Neurological: Negative. Memory loss Hematological: Negative for adenopathy. Physical Exam Constitutional: Appearance: She is not ill-appearing. HENT: Mouth/Throat: Pharynx: No oropharyngeal exudate. Eyes: General: No scleral icterus. Conjunctiva/sclera: Conjunctivae normal. Pupils: Pupils are equal, round, and reactive to light. Cardiovascular: Rate and Rhythm: Normal rate. Pulmonary: Effort: Pulmonary effort is normal. Breath sounds: Normal breath sounds. No wheezing. Abdominal: General: Bowel sounds are normal. Palpations: Abdomen is soft. There is no mass. Tenderness: There is no abdominal tenderness. There is no right CVA tenderness. Musculoskeletal: Right lower leg: No edema. Left lower leg: No edema. Lymphadenopathy: Cervical: No cervical adenopathy. Skin: General: Skin is warm. Neurological: General: No focal deficit present. Mental Status: She is alert. Psychiatric: Mood and Affect: Mood normal. Thought Content: Thought content normal. Judgment: Judgment normal. Breast Exam: Right breast normal in appearance. No mass on palpation. No nipple inversion, drainage or skin dimpling. No right axillary adenopathy. Left breast absent. Well healed scar. No mass on palpation. No left axillary adenopathy. No edema in left arm. Vitals BP 150/60 (Patient Position: Sitting) Pulse 83 Temp 36.4 ??C (97.5 ??F) (Temporal) Resp 18 Wt 103.2 kg (227 lb 9.6 oz) SpO2 98% BMI 44.10 kg/m?? Pathology: Oncotype DX breast recurrence score for my comments and not +1-3: 29 corresponded to distant recurrence risk at 9 years of 23%. With Tamoxifen alone A ??- Outside slide(s) labeled [id number], collection date 11/11/2018. 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 On submitted slides (reviewed) - ER immunoreactivity: Positive (>90% cancer cells with immunostaining) Stain intensity: Intermediate and Strong NC immunoreactivity: Positive (>90% cancer cells with immunostaining) Stain intensity: Strong HER2 IHC - Per report, 1+/Negative B ??- Outside slide(s) labeled [id number], collection date 12/07/2018. 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 - Ductal carcinoma in-situ (DCIS), high grade with comedonecrosis. - See Synoptic report. B - Lymph node, Ermine #1, left axillary, excision (4 slides labeled B)- - Metastatic carcinoma to one of two lymph nodes. - The anita metastasis measures 1.9 cm. - Extranodal invasion is present. 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 C - Lymph node, left axilla, excision (3 slides labeled C)- - One benign node. D - Lymph node, Ermine #2, left axillary, excision (1 slide labeled D)- - One benign node. E - Lymph node, Ermine #3, left axillary, excision (2 slides labeled E)- - Two benign nodes. F - Medial Skin edge, excision (2 slides labeled F) - - Benign skin and subcutis. Specimen ?Procedure: ??Total mastectomy ?Specimen Laterality: ?? Left Tumor ?Histologic Type: ?? Invasive carcinoma of no special type (ductal, not ? otherwise specified) ?Histologic Type Comments: ?? with micropapillary features ?Histologic Grade (Lyman Histologic Score) ? Glandular (Acinar) / Tubular Differentiation: ?Score 3 . DIAGNOSIS ? Nuclear Pleomorphism: ?? Score 3 ? Diameter of Microscope Field in Millimeters (mm): ?0.55 mm ? Mitotic Rate: ?? Score 3 (>=8 mitoses per mm2) ? Overall Grade: ?? Grade 3 (scores of 8 or 9) ?Tumor Size: ?? 27 Millimeters (mm) ?Ductal Carcinoma In Situ (DCIS): ?Present ? Architectural Patterns: ?? Micropapillary, Papillary, Solid ? Nuclear Grade: ?? Grade III (high) ? Necrosis: ??Present, central (expansive comedo necrosis) ?Tumor Extent ? Skin: ??Invasive carcinoma does not invade into the dermis or epidermis ? Skin Satellite Foci: ?? Satellite foci not identified ? Nipple DCIS: ??DCIS does not involve the nipple epidermis ? Skeletal Muscle: ?? No skeletal muscle is present ?Accessory Findings ? Lymphovascular Invasion: ?? Not identified ? Treatment Effect: ?? No known presurgical therapy Margins ?Invasive Carcinoma Margins: ?? Uninvolved by invasive carcinoma ? Distance from Other Specified Margin: ?From all RM > 10 Millimeters (mm) ?DCIS Margins: ?? Uninvolved by DCIS ? Distance of DCIS to Anterior Margin: ?5 Millimeters (mm) ? Distance from Other Specified Margin: ?From all other RM > 10 Millimeters ?(mm) Lymph Nodes ?Regional Lymph Nodes: ?? Involved by tumor cells ? Number of Lymph Nodes with Macrometastases: ?1 ? Number of Lymph Nodes with Micrometastases: ?0 ? Number of Lymph Nodes with Isolated Tumor Cells: ?1 ? Size of Largest Metastatic Deposit: ?19 Millimeters (mm) ? Extranodal Extension: ?? Present ? Number of Lymph Nodes Examined: ?6 ? Number of Ermine Nodes Examined: ?5 Pathologic Stage Classification (pTNM, AJCC 8th Edition) ?Primary Tumor (Invasive Carcinoma) (pT): ?pT2 ?Regional Lymph Nodes (pN) ? Category (pN): ?? pN1a Labs: 03/17/22- WBC-5.78 Hgb/Hct-11.5/35.8 Plt-168 ANC-4.17 Na-139 K+-4.5 BUN/Cr-18/1.3 Glucose-131 Ca-9.3 T. Bili-0.3 AST-20 ALT-34 Alk phos-95 Albumin-3.7 Ferritin-131 02/04/21- WBC-6.04 Hgb/Hct-10.5/33.4 MCV-87.7 Plt-162 ANC-4.39 Na-142 K+-43. BUN/Cr-20/1.5 Glucose-121 Ca-8.8 T. Bili-0.2 AST-14 ALT-25 Alk phos-101 Albumin-3.7 UyjO0W-4.0 Ferritin-215 11/08/20- WBC-6.67 Hgb/Hct-10.5/33.7 Plt-197 ANC-5.02 Na-142 [...] 11.5, platelet count 197 hemoglobin A1c 6.9 Imagin12/21/19- Mammogram- Impression: BI-RADS category 2- Benign findings. [...] with focal micropapillary features.gr3, LVI-, marilynn neg, ER+/NC+, Her2 IHC neg, LN 2/6, DCIS, [id number] (stage IIA) Treatment: -12/07/2018 left mastectomy and sentinel lymph node biopsy -02/21/19 started docetaxel and cyclophosphamide, 2-nd cycle was aborted due to Grade 4 side effect - 04/03/19 to 05/15/19 adjuvant .XRT ??- 05/31/19 started letrozole 2.5 mg daily Ms. [...] 23.3%. With adding at least 5-year of romatase inhibitors to treatment regimen 15-year cancer related mortality is down to [...] Shelton on May 15. Restaging CT and bone scan are negative for metastatic disease. She started letrozole on May [id number]. Myesha is tolerating the letrozole well without evidence of clinical toxicities. No clinical evidence of disease recurrence. Mammogram done in February 2022 was negative for malignancy. Last DEXA in 2018 was normal. We can repeat this prior to her next visit. She will see Dr. Maharaj in August and we will see her back in September. #Depressed mood: On Zoloft. Mood has improved and she states she has been doing well this summer. She follows with primary care Dr. Avendaño. #Anemia: She completed 3 doses of Venofer IV in December 2020. Last Ferritin was 215. Hgb was 10.5 MCV 87.7. 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 Ferritin today was 131. Anemia resolved. Plan: 1. Continue letrozole 2.5mg po daily. 2. DEXA scan prior to next visit. 3. Follow up visit in 6 months with CBC,CMP, Ferritin. Myesha voiced understanding of the plan and was given an opportunity to ask questions which I answered to the best of my ability. Myesha understands she can call the clinic between visits with any questions/concerns or new symptoms. Ethel Christianson MSN, INDUSTRIAL MANAGEMENT TEACHER, AOCNP Medical Oncology I spent over 30 minutes today in ROS and physical exam, review of chart, labs and tests and counseling and coordination of care and documentation in record. documented in this encounter Plan of Treatment Upcoming Encounters Date Type Department Care Team (Late st Contact Info) Description 03/21/2024 2:30 PM EDT Office Visit Hematology/Oncology at [address] [phone] Edgar Carreon MD [facility] [place] [address] Kadie Gaming APRN [facility] [place] [address] 05/15/2024 3:30 PM EST Office Visit Radiation Oncology at [address] [phone] Patsy Shelton MD [facility] [place] [address] documented as of this encounter Visit Diagnoses Diagnosis 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
--- OUTSIDE RECORDS SUMMARY | 2024-02-29 01:29 | XMS_ITS | Encounter Summary ---
Author Organization [facility] Address [facility] [address] [address] Care Team Providers Care Secretary Of Police Name Role Phone Navid Avendaño MD Primary Care Provider [phone] [phone] Reason for Visit * Reason Comments Follow-up Encounter Details Date Type Department Care Team (Late st Contact Info) Description 09/28/2022 2:30 PM EDT Office Visit Radiation Oncology at [address] [phone] Patsy Shelton MD [facility] [place] [address] Breast cancer screening by mammogram; S/P radiotherapy Social History Tobacco Use Types [...] Sign Reading Time Taken Comments Blood Pressure 146/63 09/28/2022 2:41 PM EDT Pulse 80 09/28/2022 2:41 PM EDT Temperature 36.6 ??C (97.9 ??F) 09/28/2022 2 :41 PM EDT Respiratory Rate 18 09/28/2022 2:41 PM EDT Oxygen Saturation 97% 09/28/2022 2:4 1 PM EDT Inhaled Oxygen Concentration - - Weight 97.2 kg (214 lb 3.2 oz) 09/29/19 2:41 PM EDT with shoes Height - - Body Mass Index 41.51 09/08/2022 2:48 PM EST documented in this encounter Patient Instructions * Patient Instructions* Patsy Shelton MD - 09/28/2022 2:30 PM EDT Your exam is without worrisome finding. Someone will contact you to schedule followup in 6 months. documented in this encounter Progress Notes * Patsy Shelton MD - 09/28/2022 2:30 PM EDT Images from the original note were not included. CC: Sched'd fu s/p xrt completion. 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 S/p 1 cycle docetaxel/cyclophosphamide followed by discontinuation of chemo after infusion rxn to 2nd cycle. Letrozole started after xrt completion, & she continues on it. 01/01/21 Dr. Jewell, Derm, inflamed seborrheic keratoses tx'd w/LN2, rtc 1 mo. 02/25/22 R mmg: Neg. S: Periodic tightness L chest wall laterally, particularly if using L arm a lot. Past Medical History: Diagnosis Date ??? Anxiety ??? Avila esophagus ??? Hx of adenomatous polyp of colon ??? Hyperlipidemia ??? Hypertension ??? Hypothyroid ??? Hypothyroid ??? Squamous cell skin cancer No lupus/scleroderma. Obstructive sleep apnea. DM type 2. Periodic limb movement disorder. Past Surgical History: Procedure Laterality Date ??? BREAST BIOPSY ??? SECTION ??? ENDOMETRIAL BIOPSY ??? PRO LAP, PELVIC LYMPHADENECTOMY/BX N/A 03/28/2015 LAPAROSCOPY,W\BILATERAL TOTAL PELVIC LYMPHADENECTOMY, PERIAORTIC LYMPH NODE SAMPLING, ROBOTIC performed by Anthony Belle MD at [facility] MAIN OR ? ? PRO LAPAROSCOPY W TOT HYSTERECTUTERUS <=250 GRAM W TUBE/OVARY N/A 03/28/2015 LAPAROSCOPY,TOTAL HYST, UTERUS<250GM, EVER TYBE &/OR OVARY, ROBOTIC ASSIST performed by Anthony Belle MD at [facility] MAIN OR Cataract surg OU. Physical Exam Constitutional: General: She is not in acute distress. Appearance: She is well-developed. She is not diaphoretic. Comments: BP 146/63 (Patient Position: Sitting) Pulse 80 Temp 36.6 ??C (97.9 ??F) (Temporal) Resp 18 Wt 97.2 kg (214 lb 3.2 oz) Comment: with shoes SpO2 97% BMI 41.51 kg/m?? HENT: Head: Normocephalic and atraumatic. Eyes: General: No scleral icterus. Right eye: No discharge. Left eye: No discharge. Conjunctiva/sclera: Conjunctivae normal. Neck: Trachea: No tracheal deviation. Pulmonary: Effort: Pulmonary effort is normal. No respiratory distress. Breath sounds: No stridor. Chest: Breasts: Right: No inverted nipple, mass, nipple discharge, skin change, tenderness, axillary adenopathy or supraclavicular adenopathy. Left: No axillary adenopathy or supraclavicular adenopathy. Abdominal: [...] Content: Thought content normal. Judgment: Judgment normal. A: LIZETH. Intermittent mild tightness lateral L chest wall probably from scar tissue. P: R mmg in Feb. Discussed possible PT referral for tightness lateral L chest wall & she will think about it. Rtc 6 mos. 15 mins in encounter. documented in this encounter Plan of Treatment Upcoming Encounters Date Type Department Care Team (Late st Contact Info) Description 03/21/2024 2:30 PM EDT Office Visit Hematology/Oncology at [address] [phone] Edgar Carreon MD [facility] DR [place] [address] Kadie Gaming APRN [facility] [place] [address] 05/15/2024 3:30 PM EST Office Visit Radiation Oncology at [address] [phone] Patsy Shelton MD [facility] [place] [address] Scheduled Orders Name Type Priority Associated Diagnoses Orde r Schedule Mammo Screening Cad and Henrique Right Imaging Routine Breast cancer screening by mammogram Expected: 02/26/2023, Expires: 03/31/2024 documented as of this encounter Visit Diagnoses Diagnosis Breast cancer screening by mammogram S/P radiotherapy Convalescence following radiotherapy documented in this encounter Care Teams Secretary Of Police Relationship Specialty Start Date End Date Navid Avendaño MD [address] [place] [address] [address] [place] [address] PCP - General Family Medicine 01/24/19 documented as of this encounter
--- OUTSIDE RECORDS SUMMARY | 2024-02-29 01:29 | XMS_ITS | Encounter Summary ---
Author Organization [facility] Address [facility] [address] [place] [address] Care Team Providers Care Clay Stain Mixer Name Role Phone Navid Avendaño MD Primary Care Provider [phone] Encounter Details Date Type Department Care Team (Late st Contact Info) Description 09/07/2022 Orders Only Hematology/Oncology at [address] [phone] Ethel Christianson, RN Hormone receptor positive malignant [...] 2:30 PM EDT Office Visit Hematology/Oncology at [address] [phone] Edgar Carreon MD [facility] DR HEMATOLOGY [place] [address] Kadie Gaming APRN [facility] [place] [address] 05/15/2024 3:30 PM EST Office Visit Radiation Oncology at [address] [phone] Patsy Shelton MD [facility] [place] [address] documented as of this encounter Visit Diagnoses Diagnosis 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 documented in this encounter Care Teams Clay Stain Mixer Relationship Specialty Start Date End Date Navid Avendaño MD [address] [place] [address] PCP - General Family Medicine 01/24/19 documented as of this encounter
--- OUTSIDE RECORDS SUMMARY | 2024-02-29 01:29 | XMS_ITS | Encounter Summary ---
Author Organization [facility] Address [facility] [address] [place] [address] Care Team Providers Care Equipment Service Lead Name Role Phone Navid Avendaño MD Primary Care Provider [phone] Encounter Details Date Type Department Care Team (Latest Contact Info) Description 10/10/2019 2:30 PM EDT TH Visit (TeleHealth) Hematology/Oncology at [address] [phone] Edgar Carreon MD [facility] [place] [address] Ethel Christianson, RN 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; Breast cancer, stage 2, left; intermediate current use of aromatase inhibitor; Anemia, unspecified type Social History Tobacco Use Types [...] as of this encounter Progress Notes * Edgar Carreon MD - 10/10/2019 2:30 PM EDT Images from the original note were not included. [phone] Reason/purpose for phone call: Follow-up on breast cancer and letrozole toxicity The patient voiced an understanding of the reason and intent of the phone call, and provided verbalconsent to discuss clinical issues by phone. Additionally, the patient acknowledged that a telephone consultation is a billable encounter, and that the patient or their medical insurance carrier could be billed. 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.gr3, LVI-, marilynn neg, ER+/MT+, Her2 IHC neg, LN 2/6, DCIS, [id number] (stage IIA) Subjective:I feel lightheaded HPI:Myesha Livingston referred by Dr. Bedolla for [...] uneventful. During the second infusion of docetaxel a week ago she developed syncopal episodes with low blood pressure and hypoxia. She was admitted to the hospital where found to have UTI with ceftriaxone. CT scan was negative for pulmonary embolism. Interval history: Ms. Santizo had complete right knee replacement on September 05. Her postop course was uneventful. She is currently working with for currently waiting to start physical therapy. Denies any new pain. She is compliant with letrozole and tolerates it well. Complains some minor hot flashes.No other focal complaints PMH: Right hip replacement on September 06, 2019 Arthritis, depression Syncopal episode on March 14 and admission for syncope, UTI, hypoxia. Cataract, hypertension, hyperlipidemia, Avila's esophagus, hypothyroidism, obesity, squamous cellskin cancer, endometrial cancer in 2006 diverticulosis, anxiety Past Medical History: Diagnosis Date ??? Anxiety ??? Avila esophagus ??? Hx of adenomatous polyp of colon ??? Hyperlipidemia ??? Hypertension ??? Hypothyroid ??? Hypothyroid ??? Squamous cell skin cancer Patient Active Problem List Diagnosis ??? Breast cancer, stage 2, left ??? Endometrial adenocarcinoma ??? Morbid obesity with BMI of 40.0-44.9, adult ??? Anxiety ??? Hypothyroidism ??? Avila's esophagus ??? Sleep apnea ??? Diabetes mellitus type 2, uncomplicated Social History: Non-smoker drinks alcohol occasionally, she is retired, lives by herself. Social History Socioeconomic History ??? Marital status: Legal Separation Spouse name: Not on file ??? Number of children: Not on file ??? Years of education: Not on file ??? Highest education level: Not on file Occupational History ??? Not on file Social Needs ??? Financial resource strain: Not on file ??? Food insecurity Worry: Not on file Inability: Not on file ??? Transportation needs Medical: Not on file Non-medical: Not on file Tobacco Use ??? Smoking status: Never Smoker ??? Smokeless tobacco: Never Used Substance and Sexual Activity ??? Alcohol use: No ??? Drug use: No ??? Sexual activity: Not on file Lifestyle ??? Physical activity Days per week: Not on file Minutes per session: Not on file ??? Stress: Not on file Relationships ??? Social connections Talks on phone: Not on file Gets together: Not on file Attends voodoo service: Not on file Active member of club or organization: Not on file Attends meetings of clubs or organizations: Not on file Relationship status: Not on file ??? Intimate partner violence Fear of current or ex partner: Not on file Emotionally abused: Not on file Physically abused: Not on file Forced sexual activity: Not on file Other Topics Concern ??? Not on file Social History Narrative ??? Not on file Family History: No interval changes since last visit Grandfather had colon cancer, 2 maternal aunt had breast cancer OBGYN History: Postmenopausal Allergies: Allergies Allergen Reactions ??? Atorvastatin Calcium CIS - myalgias ??? Docetaxel Syncope, 02 desaturation, tachycardia, hypotension. Medications: Your Medications Accurate as of October 10, 2019 2:43 PM. If you have any questions, ask your nurse or doctor. Continued medications with new dosing Dose Details PriLOSEC 20 mg Cpdr 20mg, PO, Once daily Generic drug: omeprazole What changed: ?? how much to take ?? how to take this ?? when to take this Refills: 0 senna-docusate 8.6-50 mg Tab Commonly known as: Pericolace Take 1 tablet by mouth daily. What changed: when to take this 1 tablet Quantity: 60 tablet Refills: 0 Continued medications, unchanged Dose Details acetaminophen 500 mg Tab Commonly known as: Tylenol As needed Refills: 0 aspirin EC 81 mg Tbec every other day. Refills: 0 Calcium Magnesium 500 mg calcium -250 mg Tab Take by mouth. Generic drug: Ca carb-Ca gluc-Mg ox-Mg gluco Refills: 0 cholecalciferol (Vitamin D3) 50 mcg (2,000 unit) Cap Take by mouth daily. Generic drug: cholecalciferol (Vitamin D3) Refills: 0 CREAM BASE TOP Apply topically. Jeans Cream. Apply to area of radiation twice a day but no less than 2 hours before a treatment. Refills: 0 Daily Multiple Tab Generic drug: multivitamin Refills: 0 ibuprofen 600 mg Tab Commonly known as: Advil;Motrin Take 1 tablet by mouth every 6 hours as needed for Pain. 600 mg Quantity: 30 tablet Refills: 0 IRON ORAL Take by mouth. Refills: 0 letrozole 2.5 mg Tab Commonly known as: Femara Take 1 tablet by mouth daily. 2.5 mg Quantity: 90 tablet Refills: 3 lisinopriL 10 mg Tab Commonly known as: Prinivil;Zestril Daily Refills: 0 LORazepam 1 mg Tab Commonly known as: Ativan nightly as needed. Once Refills: 0 metFORMIN 500 mg Tab Commonly known as: Glucophage Twice a day Refills: 0 pravastatin 20 mg Tab Commonly known as: Pravachol Refills: 0 prochlorperazine 10 mg Tab Commonly known as: Compazine Take 1 tablet by mouth every 6 hours as needed for Nausea. 10 mg Quantity: 15 tablet Refills: 3 rOPINIRole 2 mg Tab Commonly known as: Requip Take 2 mg by mouth nightly. 2 mg Refills: 0 sertraline 50 mg Tab Commonly known as: Zoloft 100 mg. Daily 100 mg Refills: 0 Synthroid 75 mcg Tab 75mcg, PO, Once daily Generic drug: levothyroxine Refills: 0 vitamin E 400 unit Cap Daily Refills: 0 Review of Systems: Constitutional: Negative for fever, chills, activity change, fatigue and unexpected weight change. HEENT: Negative for sore throat, mouth sores and trouble swallowing. Eyes: Negative. Respiratory: Negative for cough, shortness of breath and wheezing. Cardiovascular: Negative for chest pain, palpitations and leg swelling. Gastrointestinal: Negative for nausea, vomiting, abdominal pain, diarrhea, constipation and abdominal distention. Genitourinary: Negative for dysuria and difficulty urinating. Musculoskeletal: Denies any bone pain Skin: Negative. Neurological: Negative. Hematological: Negative for adenopathy. PE:deferred Pathology: Oncotype DX breast recurrence score for my comments and not +1-3: 29 corresponded to distant recurrence risk at 9 years of 23%. With Tamoxifen alone A ??- Outside slide(s) labeled [id number], collection date 11/11/2018. 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 On submitted slides (reviewed) - ER immunoreactivity: Positive (>90% cancer cells with immunostaining) Stain intensity: Intermediate and Strong MT immunoreactivity: Positive (>90% cancer cells with immunostaining) Stain intensity: Strong HER2 IHC - Per report, 1+/Negative B ??- Outside slide(s) labeled [id number], collection date 12/07/2018. 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 - Ductal carcinoma in-situ (DCIS), high grade with comedonecrosis. - See Synoptic report. B - Lymph node, [place] #1, left axillary, excision (4 slides labeled B)- - Metastatic carcinoma to one of two lymph nodes. - The anita metastasis measures 1.9 cm. - Extranodal invasion is present. 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 C - Lymph node, left axilla, excision (3 slides labeled C)- - One benign node. D - Lymph node, [place] #2, left axillary, excision (1 slide labeled D)- - One benign node. E - Lymph node, [place] #3, left axillary, excision (2 slides labeled E)- - Two benign nodes. F - Medial Skin edge, excision (2 slides labeled F) - - Benign skin and subcutis. Specimen ?Procedure: ??Total mastectomy ?Specimen Laterality: ?? Left Tumor ?Histologic Type: ?? Invasive carcinoma of no special type (ductal, not ? otherwise specified) ?Histologic Type Comments: ?? with micropapillary features ?Histologic Grade ([place] Histologic Score) ? Glandular (Acinar) / Tubular [...] Lymph Nodes Examined: ?6 ? Number of [place] Nodes Examined: ?5 Pathologic Stage Classification (pTNM, AJCC 8th Edition) ?Primary Tumor (Invasive Carcinoma) (pT): ?pT2 ?Regional Lymph Nodes (pN) ? Category (pN): ?? pN1a Labs: 09/04/2019 WBC 6.61, hemoglobin 10.7, platelet count 2019, BUN 17, creatinine 1.15. 06/21/2019 WBC 6.8, hemoglobin 10.8, MCV 88.3, [...] 11.5, platelet count 197 hemoglobin A1c 6.9 Imagin06/21/2019 DEXA scan: Femoral neck T score -0.5. [...] with focal micropapillary features.gr3, LVI-, marilynn neg, ER+/MT+, Her2 IHC neg, LN 2/6, DCIS, [id number] (stage IIA) Treatment: -12/07/2018 left mastectomy and sentinel lymph node biopsy -02/21/19 started docetaxel and cyclophosphamide, 2-nd cycle was aborted due to Grade 4 side effect - 04/03/19 to 05/15/19 adjuvant .XRT ??- 05/31/19 started letrozole 2.5 mg daily Ms. Santizo was diagnosed with left breast cancer with 2 lymph nodes positive for carcinoma one is macromet and the other one - isolated cancer cells. Based on Cancermath.net calculator she has 31.5% 15-year cancer related mortality with no adjuvant treatment. With 4 cycles of TC chemotherapy 15-year cancer related mortality is 23.3%. With adding at least 5-year of romatase inhibitors to treatmentregimen 15-year cancer related mortality is down to 15.9%. Patient is developed syncopal episode with hypotension and hypoxia during second infusion of docetaxel. She was sent to the emergency room and admitted to the hospital. She was treated for UTI, dehydration. CT scan was negative for pulmonary embolism. After that she feels better but still intermittently lightheaded. Due to grade 4 reaction to docetaxel I recommended to discontinue chemotherapy. She completed adjuvant radiation under the care of Dr. Shelton on May 15. Restaging CT and bone scan are negative for metastatic disease. She started letrozole on May [id number]. Tolerates it well. DISCUSSION Summary of conversation, decision making, and plan: Myesha Santizo is 74 y.o. with stage II breastcancer. She is currently on letrozole 2.5 mg daily. Today, by telephone, she says that she is compliant with letrozole and tolerates it well. She is scheduled for mammogram by radiation oncology office in November 2019. We will continue current treatment. I will see her back in 3 months with blood work at least 2 weeks before visit We will continue current management #DEXa: Normal #Depressed mood: On Zoloft, will follow with primary care Dr. Avendaño on coming Wednesday #Anemia: Mild, will check vitamin B12 level, folic acid, ferritin and SPEP with immunofixation nextvisit. Plan: 1. Continue letrozole 2.5 mg daily 2. F/u with Dr. Avendaño 3. Next visit with CBC,CMP, ferritin, iron, vitamin B12, folic acid, methylmalonic acid, haptoglobin, reticulocyte count, LDH and SPEP in 3 months. The plan was discussed with the patient in details. All questions were answered to patient's satisfaction. Patient verbally consents to this telephone visit and understands that this visit may be billed, similar to a clinic office visit. I provided care to the patient today via telephone call. The total time associated with this visit was 25 minutes. documented in this encounter Plan of Treatment Upcoming Encounters Date Type Department Care Team (Late st Contact Info) Description 03/21/2024 2:30 PM EDT Office Visit Hematology/Oncology at [address] [phone] Edgar Carreon MD [facility] HEMATOLOGY AND [place] [address] Kadie Gaming APRN [facility] [place] [address] 05/15/2024 3:30 PM EST Office Visit Radiation Oncology at [address] [phone] Patsy Shelton MD [facility] [place] [address] documented as of this encounter Visit Diagnoses Diagnosis 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 Breast cancer, stage 2, left termination clerk current use of aromatase inhibitor Use of aromatase inhibitors Anemia, unspecified type documented in this encounter Care Teams Equipment Service Lead Relationship Specialty Start Date End Date Navid Avendaño MD [address] [place], [place] [address] PCP - General Family Medicine 01/24/19 documented as of this encounter
--- OUTSIDE RECORDS SUMMARY | 2024-02-29 01:29 | XMS_ITS | Encounter Summary ---
Author Organization [facility] Address [facility] [place] [place] [address] Care Team Providers Care Learning Center Instructor Name Role Phone Navid Avendaño MD Primary Care Provider [phone] Encounter Details Date Type Department Care Team (Late Contact Info) Description 04/04/2020 Telephone Hematology/Oncology at [address] [phone] Kendy Fu Social History Tobacco Use Types Packs/Day Years [...] encounter Miscellaneous Notes * Telephone Encounter - Kendy Fu - 04/04/2020 12:55 PM EDT Left a message for Myesha to remind her that she has an appointment with Dr. Carreon on April 09. I also reminded Myesha that she needs labs prior to her appt on Wednesday. Labs slips have been faxed to [facility] and I asked that Myesha make an appt for labs as walk ins are not permitted at this time. documented in this encounter Plan of Treatment Upcoming Encounters Date Type Department Care Team (Late Contact Info) Description 03/21/2024 2:30 PM EDT Office Visit Hematology/Oncology at [address] [phone] Edgar Carreon MD [facility] [place] [address] Kadie Gaming APRN [facility] [place] [address] 05/15/2024 3:30 PM EST Office Visit Radiation Oncology at [address] [phone] Patsy Shelton MD [facility] [place] [address] documented as of this encounter Visit Diagnoses Not on filedocumented in this encounter Care Teams Learning Center Instructor Relationship Specialty Start Date End Date Navid Avendaño MD [address] [place], [place] [id number] PCP - General Family Medicine 01/24/19 documented as of this encounter
--- OUTSIDE RECORDS SUMMARY | 2024-02-29 01:29 | XMS_ITS | Encounter Summary ---
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; shelter current use of aromatase inhibitor; Iron deficiency anemia, unspecified iron deficiency anemia type; Breast cancer, stage 2, left Social History Tobacco Use Types Packs/Day Years [...] Sign Reading Time Taken Comments Blood Pressure 148/73 02/16/2023 3:04 PM EDT Pulse 83 02/16/2023 3:04 PM EDT Temperature 36.3 ??C (97.3 ??F) 02/16/2023 3:04 PM ED T Respiratory Rate 16 02/16/2023 3:04 PM EDT Oxygen Saturation 99% 02/16/2023 3:04 PM EDT Inhaled Oxygen Concentration - - Weight 95.7 kg (211 lb) 02/16/2023 3:04 PM EDT Height 153 cm (5' 0.24) 02/16/2023 3:04 PM EDT Body Mass Index 40.89 02/16/2023 3:04 PM EDT documented in this encounter Progress Notes * Edgar Carreon MD - 02/16/2023 2:30 PM EDT Images from the original note were not included. 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 Sleep apnea G47.30 Breast cancer, stage 2, left C50.912 Anemia, iron deficiency D50.9 Actinic keratosis L57.0 Adnexal mass N94.89 Anemia D64.9 Bilateral hand pain M79.641, M79.642 Arthritis of knee, right M17.11 Cyst of skin L72.9 Depressive disorder F32.A Diabetes mellitus E11.9 Essential hypertension I10 Hyperlipidemia E78.5 Diverticulitis of colon K57.32 Primary osteoarthritis of both knees M17.0 Restless legs syndrome G25.81 S/P left mastectomy Z90.12 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 Ventral hernia K43.9 Right carpal tunnel syndrome G56.01 HPI:Myesha Bhardwaj Brooksis referred by Dr. Bedolla for consultation on [...] scan was negative for pulmonary embolism. Interval history(02/16/23): Ms. Santizo returns to the [facility] for follow-up of breast cancer. Overall, Myesha feels well. She is currently on letrozole daily. No noticeable side effects. She denies any hot flashes. . No new illnesses or hospitalizations since we saw her last. Denies anycough, shortness of breath, loss of appetite or breast issues.enies any headaches or vision changes. Gait is steady..No other focal complaints today. PMH: No interval changes since last visit [...] hypotension. Medications: Your Medications Accurate as of February 16, 2023 3:47 PM. If you have any questions, ask [...] 1 tablet Quantity: 60 tablet Refills: 0 Review of Systems: Constitutional: Negative [...] adenopathy. Physical Exam Constitutional: Appearance: She is well-appearing. HENT: Mouth/Throat: Pharynx: No oropharyngeal exudate. Eyes: [...] dimpling. No right axillary adenopathy. Left breast surgically absent. Postsurgical scar area is tender to palpation. Well healed scar. No mass on palpation. No left axillary adenopathy. No edema in left arm. Vitals BP 148/73 (Patient Position: Sitting) Pulse 83 Temp 36.3 ??C (97.3 ??F) (Temporal) Resp 16 Ht 153 cm (5' 0.24) Wt 95.7 kg (211 lb) SpO2 99% BMI 40.89 kg/m?? Pathology: Oncotype DX breast recurrence score for my comments and not +1-3: 29 corresponded to distant recurrence risk at 9 years of 23%. With Tamoxifen alone A - Outside slide(s) labeled [id number], collection date 11/11/2018. 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 - Ductal carcinoma in-situ (DCIS), high nuclear grade, papillary/micropapillary with necrosis. On submitted slides (reviewed) - ER immunoreactivity: Positive (>90% cancer cells with immunostaining) Stain intensity: Intermediate and Strong [place] immunoreactivity: Positive (>90% cancer cells with immunostaining) Stain intensity: Strong HER2 IHC - Per report, 1+/Negative B - Outside slide(s) labeled [id number], collection date 12/07/2018. 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 - Ductal carcinoma in-situ (DCIS), high grade with comedonecrosis. - See Synoptic report. B - Lymph node, [place] #1, left axillary, excision (4 slides labeled B)- - Metastatic carcinoma to one of two lymph nodes. - The anita metastasis measures 1.9 cm. - Extranodal invasion is present. 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 C - Lymph node, left axilla, excision (3 slides labeled C)- - One benign node. D - Lymph node, [place] #2, left axillary, excision (1 slide labeled D)- - One benign node. E - Lymph node, [place] #3, left axillary, excision (2 slides labeled E)- - Two benign nodes. F - Medial Skin edge, excision (2 slides labeled F) - - Benign skin and subcutis. Specimen Procedure: Total mastectomy Specimen Laterality: Left Tumor Histologic Type: Invasive carcinoma of no special type (ductal, not otherwise specified) Histologic Type Comments: with micropapillary features Histologic Grade ([place] Histologic Score) Glandular (Acinar) / Tubular Differentiation: [...] of Lymph Nodes Examined: 6 Number of [place] Nodes Examined: 5 Pathologic Stage Classification (pTNM, AJCC 8th Edition) Primary Tumor (Invasive Carcinoma) (pT): pT2 Regional Lymph Nodes (pN) Category (pN): pN1a Labs: 02/16/2023 BUN 21, creatinine 1.4, sodium 142, [...] T. Bili-0.2 AST-14 ALT-25 Alk phos-101 Albumin-3.7 RqgY6V-1.0 Ferritin-215 11/08/20- WBC-6.67 Hgb/Hct-10.5/33.7 Plt-197 ANC-5.02 Na-142 [...] 11.5, platelet count 197 hemoglobin A1c 6.9 Imagin02/25/2022 mammogram: Findings: The fibroglandular tissue particularly of [...] with focal micropapillary features.gr3, LVI-, marilynn neg, ER+/OR+, Her2 IHC neg, LN 2/6, DCIS, [id number] (stage IIA) Treatment: -12/07/2018 left mastectomy and [...] we will see her back in September. 09/08/2022 clinically and radiographically Myesha is is [...] mammogram and bone density scan in March. #Depressed mood: On Zoloft. Mood has improved and she states she has been doing well this summer. She follows with primary care Dr. Avendaño. #Anemia: Globin is within normal range, ferritin 86, will monitor. She completed 3 doses of Venofer IV in December 2020. Last Ferritin was 215. Hgb was 10.5 MCV 87.7. Shehas mild CKD secondary to her diabetes and [...] visits with any questions/concerns or new symptoms. documented in this encounter Plan of Treatment Upcoming Encounters Date Type Department Care Team (Late st Contact Info) Description 03/21/2024 2:30 PM EDT Office Visit Hematology/Oncology at [address] [phone] Edgar Carreon MD [facility] DR HEMATOLOGY [place] [address] Kadie Gaming APRN [facility] [place] [address] 05/15/2024 3:30 PM EST Office Visit Radiation Oncology at [address] [phone] Patsy Shelton MD [facility] [place] [address] documented as of this encounter Visit Diagnoses Diagnosis 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
--- OUTSIDE RECORDS SUMMARY | 2024-02-29 01:29 | XMS_ITS | Encounter Summary ---
Author Organization formerly [facility] [place] [address] Care Team Providers Care Hat Body Inspector Name Role Phone Navid Avendaño MD Primary Care Provider +1 [phone] Encounter Details Date Type Department Care Team (Late st Contact Info) Description 06/27/2019 Telephone Radiation Oncology at [address] [phone] Celeste Flynn RN Social History [...] Telephone Encounter - Celeste Flynn RN - 06/27/2019 12:38 PM EST Telephone call to patient and let her know that it is okay to resume metformin per Dr. Shelton. She thanked me for the call and plans to resume taking metformin. * Telephone Encounter - Celeste Flynn RN - 06/27/2019 12:37 PM EST ----- Message from Patsy Shelton MD sent at 06/27/2019 12:04 PM EST ----- Celeste, please call her & tell her ok to resume metformin. [facility] Rad Onc Sec, R mmg after 11/02/19.Patsy documented in this encounter Plan of Treatment Upcoming Encounters Date Type Department Care Team (Late st Contact Info) Description 03/21/2024 2:30 PM EDT Office Visit Hematology/Oncology at [address] [phone] Edgar Carreon MD [facility] DR HEMATOLOGY [place] [address] Kadie Gaming APRN [facility] DR MEDICAL [place] [address] 05/15/2024 3:30 PM EST Office Visit Radiation Oncology at [address] [phone] Patsy Shelton MD [facility] DR RADIATION [place] [address] documented as of this encounter Visit Diagnoses Not on filedocumented in this encounter Care Teams Hat Body Inspector Relationship Specialty Start Date End Date Navid Avendaño MD [address] [place] [address] [address] [place] [address] PCP - General Family Medicine 01/24/19 documented as of this encounter
--- OUTSIDE RECORDS SUMMARY | 2024-02-29 01:29 | XMS_ITS | Encounter Summary ---
Author Organization [facility] Address [facility] [place] [place] [address] Care Team Providers Care Silica Dry Press Helper Name Role Phone Navid Avendaño MD Primary Care Provider +1 [phone] Encounter Details Date Type Department Care Team (Late Contact Info) Description 08/11/2022 Telephone Hematology/Oncology at [address] [phone] Alyssa Hunter Social History Tobacco Use Types Packs/Day Years [...] encounter Miscellaneous Notes * Telephone Encounter - Alyssa Hunter - 08/11/2022 1:03 PM EST I SPOKE TO [facility] REGARDING HER DXA. THEY CALLED THE PATIENT AND SHE STATED SHE MIGHT HAVE THE SCAN SHE HAD NOT DECIDED. SHE TOLD THEM SHE WOULD CALL THEM BACK IN SEPTEMBER OR OCTOBER. SHE IS SCHEDULE FOR A FOLLOW UP HER ON 09/08 documented in this encounter Plan of Treatment Upcoming Encounters Date Type Department Care Team (Late Contact Info) Description 03/21/2024 2:30 PM EDT Office Visit Hematology/Oncology at [address] [phone] Edgar Carreon MD [facility] HEMATOLOGY [place] [address] Kadie Gaming APRN [facility] [place] [address] 05/15/2024 3:30 PM EST Office Visit Radiation Oncology at [address] [phone] Patsy Shelton MD [facility] [place] [address] documented as of this encounter Visit Diagnoses Not on filedocumented in this encounter Care Teams Silica Dry Press Helper Relationship Specialty Start Date End Date Navid Avendaño MD [address] [place] [address] PCP - General Family Medicine 01/24/19 documented as of this encounter
--- OUTSIDE RECORDS SUMMARY | 2024-02-29 01:29 | XMS_ITS | Encounter Summary ---
Author Organization [facility] Address [facility] [place] [place] [address] Care Team Providers Care Rn Progressive Care Unit Name Role Phone Navid Avendaño MD Primary Care Provider +1 [phone] Reason for Visit * Reason Comments Radiation Consult Encounter Details Date Type Department Care Team (Late st Contact Info) Description 02/05/2020 3:30 PM EDT Office Visit Radiation Oncology at [address] [phone] Patsy Shelton MD [facility] [place] [address] 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 [...] Sign Reading Time Taken Comments Blood Pressure 131/61 02/05/2020 3:44 PM EDT Pulse 91 02/05/2020 3:44 PM EDT Temperature 36.5 ??C (97.7 ??F) 02/05/2020 3 :44 PM EDT Respiratory Rate 16 02/05/2020 3:44 PM EDT Oxygen Saturation 94% 02/05/2020 3:4 4 PM EDT Inhaled Oxygen Concentration - - Weight 102.2 kg (225 lb 6.4 oz) 020 3:44 PM EDT with shoes Height - - Body Mass Index 44.02 01/09/2020 10:55 AM EDT documented in this encounter Patient Instructions * Patient Instructions* Patsy Shelton MD - 02/05/2020 3:30 PM EDT Your exam is without worrisome finding. Followup with me in 6 months. Someone will contact you to schedule the appointment. documented in this encounter Progress Notes * Patsy Shelton MD - 02/05/2020 3:30 PM EDT Images from the original note were not included. CC: Sched'd fu s/p xrt completion. HPI: Myesha is a 74 y/o f who completed xrt to L supraclav fossa, L axilla & L chest wall 9 mosago (05/15/19) for breast ca, L, IDC w/dominant pattern of micropapillary ca, gr 3, ER+RI+, 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 S/p 1 cycle docetaxel/cyclophosphamide followed by discontinuation of chemo after infusion rxn to 2nd cycle. Letrozole started after xrt completion, & she continues on it. Subjective: No breast problem. No hand/arm swelling. ROM arms around shoulders ok. Energy level ok. Past Medical History: Diagnosis Date ??? Anxiety [...] ROBOTIC performed by Anthony Belle MD at [facility] MAIN OR ? ? PRO LAPAROSCOPY W TOT HYSTERECTUTERUS <=250 GRAM W TUBE/OVARY N/A 03/28/2015 LAPAROSCOPY,TOTAL HYST, UTERUS<250GM, EVER TYBE &/OR OVARY, ROBOTIC ASSIST performed by Anthony Belle MD at [facility] MAIN OR Cataract surg OU. Physical Exam Constitutional: General: She is not in acute distress. Appearance: She is well-developed. She is not diaphoretic. Comments: BP 131/61 (Patient Position: Sitting) Pulse 91 Temp 36.5 ??C (97.7 ??F) (Temporal) Resp 16 Wt 102.2 kg (225 lb 6.4 oz) Comment: with shoes SpO2 94% BMI 44.02 kg/m?? HENT: Head: Normocephalic and atraumatic. Eyes: General: No scleral icterus. Right eye: No discharge. Left eye: No discharge. Conjunctiva/sclera: Conjunctivae normal. Neck: Musculoskeletal: Normal range of motion and neck supple. Trachea: No tracheal deviation. Pulmonary: Effort: Pulmonary effort is normal. No respiratory distress. Breath sounds: No stridor. Chest: Breasts: Right: No inverted nipple, mass, nipple discharge, skin change or tenderness. Abdominal: General: There is no distension. Palpations: Abdomen is soft. There is no mass. Tenderness: There is no abdominal tenderness. There is no guarding or rebound. Musculoskeletal: Normal range of motion. General: No tenderness or deformity. Lymphadenopathy: Head: Right side of head: No [...] No abnormal muscle tone. Coordination: Coordination normal. Psychiatric: Mood and Affect: Mood normal. Behavior: Behavior normal. Thought Content: Thought content normal. Judgment: Judgment normal. LABS: 06/23/19 Cr 1.07 (0.55-1.02) 06/21/19 Cr 1.11 (0.55-1.02) 05/22/19 Cr 1.26 (0.55-1.02) IMAGIN12/21/19 R mmg: Benign 06/21/19 bone scan: No osseous met. Degenerative changes. 06/21/19 CT c/a/p: No met dz. 06/21/19 Dexascan: Nl A: LIZETH. P: Rtc 6 mos. documented in this encounter Plan of Treatment Upcoming Encounters Date Type Department Care Team (Late st Contact Info) Description 03/21/2024 2:30 PM EDT Office Visit Hematology/Oncology at [address] [phone] Edgar Carreon MD [facility] [address] [place] [address] Kadie Gaming APRN [facility] [place] [address] 05/15/2024 3:30 PM EST Office Visit Radiation Oncology at [address] [phone] Patsy Shelton MD [facility] [place] [address] documented as of this encounter Visit Diagnoses Diagnosis 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
--- OUTSIDE RECORDS SUMMARY | 2024-02-29 01:29 | XMS_ITS | Encounter Summary ---
Author Organization [facility] Address [facility] [place] [place] [address] Care Team Providers Care Wash Driller Helper Name Role Phone Navid Avendaño MD Primary Care Provider +1 [phone] Encounter Details Date Type Department Care Team (Latest Contact Info) Description 03/29/2023 Travel Social History Tobacco Use Types Packs/Day [...] 2:30 PM EDT Office Visit Hematology/Oncology at [address] [phone] Edgar Carreon MD [facility] HEMATOLOGY [place] [address] Kadie Gaming APRN [facility] [place] [address] 05/15/2024 3:30 PM EST Office Visit Radiation Oncology at [address] [phone] Patsy Shelton MD [facility] [place] [address] documented as of this encounter Visit Diagnoses Not on filedocumented in this encounter Care Teams Wash Driller Helper Relationship Specialty Start Date End Date Navid Avendaño MD [address] [place] [address] PCP - General Family Medicine 01/24/19 documented as of this encounter
--- OUTSIDE RECORDS SUMMARY | 2024-02-29 01:29 | XMS_ITS | Encounter Summary ---
Author Organization [facility] Address [facility] [place] [address] Care Team Providers Care Firefighter Name Role Phone Navid Avendaño MD Primary Care Provider +1 [phone] Reason for Visit * Reason Onset Date Comments Public Health Screening 08/09/2020 vaccine Encounter Details Date Type Department Care Team (Late Contact Info) Description 08/09/2020 Telephone Hematology Oncology at [address] [phone] Delmis Dewey, RN Public Health Screening (vaccine) Social History Tobacco Use Types Packs/Day Years [...] encounter Miscellaneous Notes * Telephone Encounter - Delmis Dewey RN - 08/09/2020 1:38 PM EST Myesha called asking if it was ok for her to get the COVID vaccine. I advised her that it is and when it becomes available to her she should get it. She agreed. documented in this encounter Plan of Treatment Upcoming Encounters Date Type Department Care Team (Late Contact Info) Description 03/21/2024 2:30 PM EDT Office Visit Hematology/Oncology at [address] [phone] Edgar Carreon MD [facility] [place] [address] Kadie Gaming APRN [facility] [place] [address] 05/15/2024 3:30 PM EST Office Visit Radiation Oncology at [address] [phone] Patsy Shelton MD [facility] [address] documented as of this encounter Visit Diagnoses Not on filedocumented in this encounter Care Teams Firefighter Relationship Specialty Start Date End Date Navid Avendaño MD [address] [place] [address] PCP - General Family Medicine 01/24/19 documented as of this encounter
--- OUTSIDE RECORDS SUMMARY | 2024-02-29 01:29 | XMS_ITS | Encounter Summary ---
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.gr3, LVI-, marilynn neg, ER+/NJ+, Her2 IHC neg, LN 2/6, DCIS, [id number] (stage IIA) Subjective:I feel lightheaded HPI:Myesha Livingston [...] for pulmonary embolism. Interval history: Ms. Santizo is in clinic for follow-up appointment on breast cancer. Ms. Santizo started letrozole on May 31. Tolerates it well with no noticeable side effects. Completed adjuvant radiation on May 15. Complains of the pain in the knees right more than left but it is longstanding problem. She is going to see orthopedic surgeon on Wednesday. She still feels tenderness in the left axillary area. Her mood is down. Feels that she is confined to her house due to the pain and low mood. Overwise, no focal complaints. PMH: Arthritis, depression Syncopal episode on March 14 [...] resource strain: Not on file ??? Food insecurity: Worry: Not on file Inability: Not on file ??? Transportation needs: Medical: Not on file Non-medical: Not on file Tobacco Use ??? Smoking status: Never Smoker ??? Smokeless tobacco: Never Used Substance and Sexual Activity ??? Alcohol use: No ??? Drug use: No ??? Sexual activity: Not on file Lifestyle ??? Physical activity: Days per week: Not on file Minutes per session: Not on file ??? Stress: Not on file Relationships ??? Social connections: Talks on phone: Not on file Gets together: Not on file Attends roman catholic service: Not on file Active member of club or organization: Not on file Attends meetings of clubs or organizations: Not on file Relationship status: Not on file ??? Intimate partner violence: Fear of current or ex partner: Not [...] hypotension. Medications: Your Medications Accurate as of July 18, 2019 9:51 AM. If you have any questions, ask [...] 2.5 mg Quantity: 90 tablet Refills: 3 lisinopril 10 mg Tab Commonly known as: Prinivil;Zestril [...] 100 mg. Daily 100 mg Refills: 0 silver sulfADIAZINE 1 % Crea Commonly known as: SILVADENE Apply @ least once daily to irradiated area, may apply as often as needed, 2-4 g/day. Quantity: 400 g Refills: 0 Synthroid 75 mcg Tab 75mcg, [...] Negative. Neurological: Negative. Hematological: Negative for adenopathy. PE: General: AAAx3, in NAD Head: Normocephalic, without obvious abnormality, atraumatic Eyes: PERRL, conjunctiva/corneas clear, EOM's intact, fundi benign, both eyes Ears: Normal TM's and external ear canals, both ears Nose: Nares normal, septum midline, mucosa normal, no drainage or sinus tenderness Throat: Lips, mucosa, and tongue normal; teeth and gums normal Neck: Supple, symmetrical, trachea midline, no adenopathy, thyroid: not enlarged, symmetric, no tenderness/mass/nodules, no carotid bruit or JVD Back: Symmetric, no curvature, ROM normal, no CVA tenderness Lungs: Clear to auscultation bilaterally, respirations unlabored Chest Wall: deffered Heart: Regular rate and rhythm, S1, S2 normal, no murmur, rub or gallop Abdomen: Soft, non-tender, bowel sounds active all four quadrants, no masses, no organomegaly. There is no appreciable ascites Extremities: Extremities normal, atraumatic, no cyanosis or edema Pulses: 2+ and symmetric Skin: Skin color, texture, turgor normal, no rashes or lesions Lymph nodes: Cervical, supraclavicular, and axillary nodes normal Neurologic: Normal Vitals BP 127/67 (Patient Position: Sitting) Pulse 85 Temp 37.1 ??C (98.8 ??F) (Oral) Resp 16 Ht 152.4 cm (5') Wt 103.9 kg (229 lb) SpO2 98% BMI 44.72 kg/m?? Pathology: Oncotype DX breast recurrence score for my comments and not +1-3: 29 corresponded to distant recurrence risk at 10 years of 23%. With Tamoxifen alone A ??- Outside slide(s) labeled [id number], collection date 11/11/2018. 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 On submitted slides (reviewed) - ER immunoreactivity: Positive (>90% cancer cells with immunostaining) Stain intensity: Intermediate and Strong NJ immunoreactivity: Positive (>90% cancer cells with immunostaining) Stain intensity: Strong HER2 IHC - Per report, 1+/Negative B ??- Outside slide(s) labeled [id number], collection date 12/07/2018. 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 - Ductal carcinoma in-situ (DCIS), high grade with comedonecrosis. - See Synoptic report. B - Lymph node, Hampton #1, left axillary, excision (4 slides labeled B)- - Metastatic carcinoma to one of two lymph nodes. - The anita metastasis measures 1.9 cm. - Extranodal invasion is present. 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 C - Lymph node, left axilla, excision (3 slides labeled C)- - One benign node. D - Lymph node, Hampton #2, left axillary, excision (1 slide labeled D)- - One benign node. E - Lymph node, Hampton #3, left axillary, excision (2 slides labeled E)- - Two benign nodes. F - Medial Skin edge, excision (2 slides labeled F) - - Benign skin and subcutis. Specimen ?Procedure: ??Total mastectomy ?Specimen Laterality: ?? Left Tumor ?Histologic Type: ?? Invasive carcinoma of no special type (ductal, not ? otherwise specified) ?Histologic Type Comments: ?? with micropapillary features ?Histologic Grade (Sami Histologic Score) ? Glandular (Acinar) / Tubular [...] Lymph Nodes Examined: ?6 ? Number of Hampton Nodes Examined: ?5 Pathologic Stage Classification (pTNM, AJCC 8th Edition) ?Primary Tumor (Invasive Carcinoma) (pT): ?pT2 ?Regional Lymph Nodes (pN) ? Category (pN): ?? pN1a Labs: 06/21/2019 WBC 6.8, hemoglobin 10.8, MCV 88.3, platelets 212, ANC 5.54, sodium 140, potassium4.3, and 1.11, calcium 9.6, alkaline phosphatase 85, [...] with focal micropapillary features.gr3, LVI-, marilynn neg, ER+/NJ+, Her2 IHC neg, LN 2/6, DCIS, [id number] (stage IIA) Treatment: -12/07/2018 left mastectomy and [...] for metastatic disease. She started letrozole on November 27 of 2019. Tolerates it well. We will continue current treatment. I will see her back in 3 months #DEXa: Normal #Depressed mood: On Zoloft, will [...] count, LDH and SPEP in 3 months. Ms. Santizo is accompanied by her daughter today. The plan was discussed with the patient in details. All questions were answered to patient's satisfaction. documented in this encounter Plan of Treatment Upcoming Encounters Date Type Department Care Team (Late st Contact Info) Description 03/21/2024 2:30 PM EDT Office Visit Hematology/Oncology at [address] [phone] Edgar Carreon MD [facility] DR [place] [address] Kadie Gaming APRN [facility] [place] [address] 05/15/2024 3:30 PM EST Office Visit Radiation Oncology at [address] [phone] Patsy Shelton MD [facility] [place] [address] documented as of this encounter Visit Diagnoses Diagnosis Breast cancer, stage 2, left- Primary 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
--- OUTSIDE RECORDS SUMMARY | 2024-02-29 01:29 | XMS_ITS | Encounter Summary ---
Author Organization [facility] [place] [place] [address] Care Team Providers Care Service Electrician Name Role Phone Navid Avendaño MD Primary Care Provider +1 [phone] Encounter Details Date Type Department Care Team (Late Contact Info) Description 03/18/2023 Ancillary Procedure [place] [address] Navid Avendaño MD [address] [place] [address] Social History Tobacco Use Types [...] PM EDT Office Visit Hematology/Oncology at [address] [phone] Edgar Carreon MD [facility] DR [place] [address] Kadie Gaming APRN [facility] [place] [address] 05/15/2024 3:30 PM EST Office Visit Radiation Oncology at [address] [phone] Patsy Shelton MD [facility] [place] [address] documented as of this encounter Procedures Procedure Name Priority Date/Time Associated Diagnosis Comments FILM LIBRARY- STORAGE ONLY DXA IMAGES Routine 03/18/2023 12:00 AM EDT documented in this encounter Results * Film Library- Storage Only DXA Images (03/18/2023 12:00 AM EDT) Narrative [facility] - 03/19/2023 1:55 PM EDT This exam is auto-finalizing. It's purpose is for storage only. Navid Avendaño MD IMG FILM LIBRARY ORDERABLES [place], [place] documented in this encounter Visit Diagnoses Not on filedocumented in this encounter Care Teams Service Electrician Relationship Specialty Start Date End Date Navid Avendaño MD [address] [place] [address] PCP - General Family Medicine 01/24/19 documented as of this encounter
--- OUTSIDE RECORDS SUMMARY | 2024-02-29 01:29 | XMS_ITS | Encounter Summary ---
Author Organization [facility] Address [facility] [address] [place] [address] Care Team Providers Care Insurance Appraiser Name Role Phone Navid Avendaño MD Primary Care Provider [phone] Reason for Referral * Consultation (Routine) - Closed Specialty Diagnoses / Procedures Referred By Contac t Referred To Contact Diagnoses Anemia, unspecified type Iron deficiency anemia, unspecified iron deficiency anemia type Edgar Carreon MD [facility] [place] [address] Kelli Bedolla MD [address] [place] [address] Referral ID Status Reason Start Date Expiration Date V isits Requested Visits Authorized [id number] Closed Consult, Test & Treat Non PCP 04/09/2020 10/06/2020 1 1 Encounter Details Date Type Department Care Team (Late st Contact Info) Description 04/09/2020 1:00 PM EDT Office Visit Hematology/Oncology at [address] [phone] Edgar Carreon MD [facility] [place] [address] Ethel Christianson RN care home current use of aromatase inhibitor; 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; Breast cancer, stage 2, left; Anemia, unspecified type; Iron deficiency anemia, unspecified iron deficiency anemia type Social History Tobacco Use Types Packs/Day [...] Sign Reading Time Taken Comments Blood Pressure 126/56 04/09/2020 1:10 PM EDT Pulse 85 04/09/2020 1:10 PM EDT Temperature 36.3 ??C (97.4 ??F) 04/09/2020 1:10 PM ED T Respiratory Rate 16 04/09/2020 1:10 PM EDT Oxygen Saturation 95% 04/09/2020 1:10 PM EDT Inhaled Oxygen Concentration - - Weight 103.9 kg (229 lb) 04/09/2020 1:10 PM EDT Height 152.4 cm (5') 04/09/2020 1:10 PM EDT Body Mass Index 44.72 04/09/2020 1:10 PM EDT documented in this encounter Progress Notes * Edgar Carreon MD - 04/09/2020 1:00 PM EDT Images from the original note were not included. 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 Endometrial adenocarcinoma C54.1 ??? Morbid obesity with BMI of 40.0-44.9, adult E66.01, Z68.41 ??? Anxiety F41.9 ??? Hypothyroidism E03.9 ??? 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 Sleep apnea G47.30 ??? Diabetes mellitus type 2, uncomplicated E11.9 ??? Breast cancer, stage 2, left C50.912 Subjective:I get tired easily. HPI:Myesha Livingston referred by Dr. Bedolla for [...] for pulmonary embolism. Interval history: Ms. Santizo returns to the [facility] for follow-up of breast cancer. She is currently on letrozole daily which she started on May. Plan placed medication. Myesha developed joint pain, stiffness and numbness tingling in the hands about 2 weeks ago. It does interfere with her daily activity. She started to drop things from her hands.Dr. Avendaño did some work-up and refer her to tank builder who she is going to see in May. Complains of pain in her left knee and leg. Denies any cough, shortness of breath, loss of appetite or new lumps or bumps. Shestill has tenderness in the left chest at her surgical site and some swelling in the upper left arm. She is taking iron orally daily. PMH: Arthritis Arthritis, depression September 2019- Right TKR [...] last visit Allergies: Allergies Allergen Reactions ??? Atorvastatin Calcium CIS - myalgias ??? Docetaxel Syncope, 02 desaturation, tachycardia, hypotension. Medications: Your Medications Accurate as of April 09, 2020 1:25 PM. If you have any questions, ask [...] 1 tablet by mouth daily. What changed: ?? when to take this ?? reasons to take this 1 tablet Quantity: 60 tablet Refills: 0 Continued medications, unchanged Dose Details acetaminophen 500 mg Tab Commonly known as: Tylenol As needed Refills: 0 aspirin EC 81 mg Tbec Take 81 mg by mouth daily. 81 mg Refills: 0 Calcium Magnesium 500 mg calcium -250 mg Tab Take by mouth. Generic drug: Ca carb-Ca gluc-Mg ox-Mg gluco Refills: 0 celecoxib 100 mg Cap Commonly known as: CeleBREX Take 100 mg by mouth daily. 100 mg Refills: 0 cholecalciferol (Vitamin D3) 50 mcg (2,000 unit) Cap Take by mouth daily. Generic drug: cholecalciferol (Vitamin D3) Refills: 0 Daily Multiple Tab Generic drug: multivitamin Refills: 0 gabapentin 300 mg Cap Commonly known as: Neurontin Take 300 mg by mouth nightly. 300 mg Refills: 0 ibuprofen 600 mg Tab Commonly [...] Tab Commonly known as: Pravachol Refills: 0 rOPINIRole 2 mg Tab Commonly known as: [...] chills, activity change, and unexpected weight change. Positivefor fatigue. HEENT: Negative for sore throat, mouth sores and trouble swallowing. Eyes: Negative. Respiratory: Negative for cough, shortness of breath and wheezing. Cardiovascular: Negative for chest pain, palpitations and leg swelling. Gastrointestinal: Negative for nausea, vomiting, abdominal pain, diarrhea, constipation and abdominal distention. Barretts esophagus. Frequent heartburn. Genitourinary: Negative for dysuria and difficulty urinating. Musculoskeletal: Joint pain and stiffness in hands and knees Skin: Negative. Cyst removed from mid back. Neurological: Negative. Hematological: Negative for adenopathy. PE: Patient declined physical exam itals BP 126/56 (Patient Position: Sitting) Pulse 85 Temp 36.3 ??C (97.4 ??F) (Temporal) Resp16 Ht 152.4 cm (5') Wt 103.9 kg (229 lb) SpO2 95% BMI 44.72 kg/m?? Pathology: Oncotype DX breast recurrence score for my comments and not +1-3: 29 corresponded to distant recurrence risk at 10 years of 23%. With Tamoxifen alone A ??- Outside slide(s) labeled [id number], collection date 11/11/2018. 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 On submitted slides (reviewed) - ER immunoreactivity: Positive (>90% cancer cells with immunostaining) Stain intensity: Intermediate and Strong AK immunoreactivity: Positive (>90% cancer cells with immunostaining) Stain intensity: Strong HER2 IHC - Per report, 1+/Negative B ??- Outside slide(s) labeled [id number], collection date 12/07/2018. 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 - Ductal carcinoma in-situ (DCIS), high grade with comedonecrosis. - See Synoptic report. B - Lymph node, [place] #1, left axillary, excision (4 slides labeled B)- - Metastatic carcinoma to one of two lymph nodes. - The anita metastasis measures 1.9 cm. - Extranodal invasion is present. 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 C - Lymph node, left axilla, excision (3 slides labeled C)- - One benign node. D - Lymph node, [place] #2, left axillary, excision (1 slide labeled D)- - One benign node. E - Lymph node, [place] #3, left axillary, excision (2 slides labeled E)- - Two benign nodes. F - Medial Skin edge, excision (2 slides labeled F) - - Benign skin and subcutis. Specimen ?Procedure: ??Total mastectomy ?Specimen Laterality: ?? Left Tumor ?Histologic Type: ?? Invasive carcinoma of no special type (ductal, not ? otherwise specified) ?Histologic Type Comments: ?? with micropapillary features ?Histologic Grade ([place] Histologic Score) ? Glandular (Acinar) / Tubular [...] Lymph Nodes Examined: ?6 ? Number of [place] Nodes Examined: ?5 Pathologic Stage Classification (pTNM, AJCC 8th Edition) ?Primary Tumor (Invasive Carcinoma) (pT): ?pT2 ?Regional Lymph Nodes (pN) ? Category (pN): ?? pN1a Labs: 04/04/2020 WBC 6, hemoglobin 10.2, platelet count 209, ANC 4.7, haptoglobin 185, iron 37, [id number], transferrin saturation 12%, ferritin 31, BUN 15, [...] with focal micropapillary features.gr3, LVI-, marilynn neg, ER+/AK+, Her2 IHC neg, LN 2/6, DCIS, [id number] (stage IIA) Treatment: -12/07/2018 left mastectomy and [...] She started letrozole on May [id number]. Myesha developed joint ache and stiffness about 2 months ago. She has been working up for lupus. Arthritis/joint pain can be related to aromatase inhibitor. I would like to hold medication for monthsand to see if any improvement in her arthritis. Meanwhile she will be seen by tank builder as well. I will see her back in 1 months to decide if she continues with aromatase inhibitors versus switching her to tamoxifen #DEXA: Normal #Depressed mood: On Zoloft, will follow with primary care Dr. Avendaño on coming Wednesday #Anemia: In spite of taking ferrous sulfate your ferritin remains low normal, transferrin saturation is low. Folic acid within normal range, methylmalonic acid is pending. No monoclonal protein on SPEP. Reason why she is not responding to iron supplements can be concomitant protein pump inhibitor omeprazole blocking absorption of iron versus chronic blood loss. I will take liberty to refer her tosurgeon Dr. Bedolla for consideration of upper and lower endoscopies. The other reason for anemia could be her chronic renal insufficiency and possible rheumatological disease. She is going to see a tank builder in May. We may consider a trial of IV iron after she sees the surgeon. Mild- she does complain of fatigue. Ferritin-35. She is taking oral iron. Remainder of lab workup was negative. 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 MCV is 85.0. It is unclear how much oral iron she is taking. Will have her take ferrous sulfate 325 mg po daily and repeat her ferritin in 3 months. If no improvement she may need IV iron. Plan: 1. Hold letrozole 2. Follow-up with Dr. Bedolla 3. Next visit in 5 weeks Myesha is accompanied by her daughter today. The voiced understanding of the plan and was given an opportunity to ask questions which I answered to the best of my ability.Myesha understands she can call the clinic between visits with any questions/concerns or new symptoms. documented in this encounter Plan of Treatment Upcoming Encounters Date Type Department Care Team (Late st Contact Info) Description 03/21/2024 2:30 PM EDT Office Visit Hematology/Oncology at [address] [phone] Edgar Carreon MD [facility] [place] [address] Kadie Gaming APRN [facility] [place] [address] 05/15/2024 3:30 PM EST Office Visit Radiation Oncology at [address] [phone] Patsy Shelton MD [facility] [place] [address] Scheduled Referrals Name Type Priority Associated Diagnoses Orde r Schedule Referral to General Surgery Outpatient Referral Routine Anemia, unspecified type Iron deficiency anemia, unspecified iron deficiency anemia type Ordered: 04/09/2020 documented as of this encounter Visit Diagnoses Diagnosis 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
--- OUTSIDE RECORDS SUMMARY | 2024-02-29 01:29 | XMS_ITS | Encounter Summary ---
Author Organization [facility] Address [facility] [address] [place] [place] [address] Care Team Providers Care Human Intelligence Name Role Phone Navid Avendaño MD Primary Care Provider [phone] Reason for Visit * Reason Comments Medication Refill Encounter Details Date Type Department Care Team (Late st Contact Info) Description 09/02/2022 Refill Hematology/Oncology at [address] [phone] Ethel Christianson, RN Hormone receptor positive malignant [...] PM EDT Office Visit Hematology/Oncology at [address] [phone] Edgar Carreon MD [facility] [address] [place] [address] Kadie Gaming APRN [facility] [place] [address] 05/15/2024 3:30 PM EST Office Visit Radiation Oncology at [address] [phone] Patsy Shelton MD [facility] [place] [address] documented as of this encounter Visit Diagnoses Diagnosis 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
--- OUTSIDE RECORDS SUMMARY | 2024-02-29 01:29 | XMS_ITS | Encounter Summary ---
Author Organization [facility] [place] [address] Care Team Providers Care Natural Gas Shothole Driller Name Role Phone Navid Avendaño MD Primary Care Provider [phone] [phone] Encounter Details Date Type Department Care Team (Late st Contact Info) Description 11/13/2020 1:00 PM EDT Office Visit Hematology/Oncology at [address] [phone] Ethel Christianson RN Breast cancer, stage 2, left; Iron deficiency anemia, unspecified iron deficiency anemia [...] Sign Reading Time Taken Comments Blood Pressure 121/92 11/13/2020 1:02 PM EDT Pulse 101 11/13/2020 1:02 PM EDT Temperature 36.6 ??C (97.9 ??F) 11/13/2020 1:02 PM ED T Respiratory Rate 26 11/13/2020 1:02 PM EDT Oxygen Saturation 97% 11/13/2020 1:02 PM EDT Inhaled Oxygen Concentration - - Weight 105.8 kg (233 lb 3.2 oz) 11/13/2020 1:02 PM EDT Height 152.4 cm (5') 11/13/2020 1:02 PM EDT Body Mass Index 45.54 11/13/2020 1:02 PM EDT documented in this encounter Progress Notes * Ethel Christianson, LEAD QA ANALYST - 11/13/2020 1:00 PM EDT Images from the original note were not included. 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 Endometrial adenocarcinoma C54.1 ??? Morbid obesity with BMI of 40.0-44.9, adult E66.01, Z68.41 ??? Anxiety F41.9 ??? Hypothyroidism E03.9 ??? 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 Sleep apnea G47.30 ??? Diabetes mellitus type 2, uncomplicated E11.9 ??? Breast cancer, stage 2, left C50.912 ??? Anemia, iron deficiency D50.9 Subjective:I get tired easily. HPI:Myesha Livingston referred [...] scan was negative for pulmonary embolism. Interval history(11/13/20): Ms. Santizo returns to the [facility] for follow-up of breast cancer. She is currently on letrozole daily which she started on May. She is tolerating the letrozole well. She denies any hot flashes or arthralgia. She has been having some neuropathy inher hnads. She is diabetic but does not monitor her glucose at home. Sh has started to drop things from hands. She sees Dr. Avendaño for follow up. Denies any cough, shortness of breath, loss of appetite or breast issues. Her main complaint today is fatigue. She was taking oral iron but it wasn't helping. PMH: Arthritis Arthritis, depression September 2019- Right TKR Spring 2019- large cyst removed from back Syncopal episode on March 14 and admission for syncope, UTI, hypoxia. Cataract, hypertension, hyperlipidemia, Avila's esophagus, hypothyroidism, obesity, squamous cellskin cancer, endometrial cancer in 2007 diverticulosis, anxiety Past Medical History: Diagnosis Date [...] hypotension. Medications: Your Medications Accurate as of November 13, 2020 3:58 PM. If you have any questions, ask [...] by mouth nightly. 300 mg Refills: 0 IRON ORAL Take by mouth. Refills: 0 letrozole 2.5 mg Tab Commonly known as: Femara Take 1 tablet by mouth daily. 2.5 mg Quantity: 90 tablet Refills: 2 lisinopriL 10 mg Tab Commonly known as: Prinivil;Zestril Daily Refills: 0 LORazepam 1 mg Tab Commonly known as: Ativan nightly as needed. Once Refills: 0 metFORMIN 500 mg Tab Commonly known as: Glucophage Twice a day Refills: 0 pravastatin 20 mg Tab Commonly known as: Pravachol Refills: 0 sertraline 50 mg Tab Commonly [...] PE: Patient declined physical exam itals BP (!) 121/92 (Patient Position: Sitting) Pulse (!) 101 Temp 36.6 ??C (97.9 ??F) (Temporal) Resp 26 Ht 152.4 cm (5') Wt 105.8 kg (233 lb 3.2 oz) SpO2 97% BMI 45.54 kg/m?? Pathology: Oncotype DX breast recurrence score for my comments and not +1-3: 29 corresponded to distant recurrence risk at 10 years of 23%. With Tamoxifen alone A ??- Outside slide(s) labeled [id number], collection date 11/11/2018. 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 On submitted slides (reviewed) - ER immunoreactivity: Positive (>90% cancer cells with immunostaining) Stain intensity: Intermediate and Strong WI immunoreactivity: Positive (>90% cancer cells with immunostaining) Stain intensity: Strong HER2 IHC - Per report, 1+/Negative B ??- Outside slide(s) labeled [id number], collection date 12/07/2018. 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 - Ductal carcinoma in-situ (DCIS), high grade with comedonecrosis. - See Synoptic report. B - Lymph node, Beau[place] #1, left axillary, excision (4 slides labeled B)- - Metastatic carcinoma to one of two lymph nodes. - The anita metastasis measures 1.9 cm. - Extranodal invasion is present. 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 C - Lymph node, left axilla, excision (3 slides labeled C)- - One benign node. D - Lymph node, [place] #2, left axillary, excision (1 slide labeled D)- - One benign node. E - Lymph node, [place] #3, left axillary, excision (2 slides labeled E)- - Two benign nodes. F - Medial Skin edge, excision (2 slides labeled F) - - Benign skin and subcutis. Specimen ?Procedure: ??Total mastectomy ?Specimen Laterality: ?? Left Tumor ?Histologic Type: ?? Invasive carcinoma of no special type (ductal, not ? otherwise specified) ?Histologic Type Comments: ?? with micropapillary features ?Histologic Grade ([place] Histologic Score) ? Glandular (Acinar) / Tubular [...] Lymph Nodes Examined: ?6 ? Number of [place] Nodes Examined: ?5 Pathologic Stage Classification (pTNM, AJCC 8th Edition) ?Primary Tumor (Invasive Carcinoma) (pT): ?pT2 ?Regional Lymph Nodes (pN) ? Category (pN): ?? pN1a Labs: 11/08/20- WBC-6.67 Hgb/Hct-10.5/33.7 Plt-197 ANC-5.02 Na-142 K+-4.3 [...] with focal micropapillary features.gr3, LVI-, marilynn neg, ER+/WI+, Her2 IHC neg, LN 2/6, DCIS, [id number] (stage IIA) Treatment: -12/07/2018 left mastectomy and [...] No clinical evidence of disease recurrence. Mammogram recently ordered by Dr. Maharaj. Last DEXA in 2019 was normal. #Depressed mood: On Zoloft, will follow with primary care Dr. Avendaño #Anemia: In spite of taking ferrous sulfate her ferritin remains low and she is fatigued. She is taking oral iron. Remainder of lab workup was negative. 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 MCV is 88.0. No improvement on oral iron. She has agreed to IV Venofer. Will arrange for infusions. She requests Dr. Carreon be in the clinic when she gets her infusions because of her previous reaction to chemotherapy. Plan: 1. Continue letrozole 2.5mg po daily. 2. Venofer IV x 4 doses 3. Follow up visit in 3 months with CBC,CMP, Ferritin. Myesha voiced understanding of the plan and was given an opportunity to ask questions which I answered to the best of my ability. Myesha understands she can call the clinic between visits with any questions/concerns or new symptoms. 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 Endometrial adenocarcinoma C54.1 ??? Morbid obesity with BMI of 40.0-44.9, adult E66.01, Z68.41 ??? Anxiety F41.9 ??? Hypothyroidism E03.9 ??? 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 Sleep apnea G47.30 ??? Diabetes mellitus type 2, uncomplicated E11.9 ??? Breast cancer, stage 2, left C50.912 ??? Anemia, iron deficiency D50.9 Subjective:I get tired easily. HPI:Myesha Livingston referred [...] Interval history: Ms. Santizo returns to the [facility] for follow-up of breast cancer. She held letrozole for 6 weeks following with no improvement in her stiffness and joint ache. She was seen by phlebotomist supervisor/instructor and was referred to a neurologist. Dr. Bedolla performed EGD and colonoscopy on May 22. Myesha hernandezs at her baseline. PMH: Gastric and colonic polyps Arthritis Arthritis, depression September 2019- Right TKR Spring 2019- large cyst removed from back Syncopal episode on March 14 and admission for syncope, UTI, hypoxia. Cataract, hypertension, hyperlipidemia, Avila's esophagus, hypothyroidism, obesity, squamous cellskin cancer, endometrial cancer in 2007 diverticulosis, anxiety Past Medical History: Diagnosis Date [...] hypotension. Medications: Your Medications Accurate as of November 13, 2020 3:58 PM. If you have any questions, ask [...] by mouth nightly. 300 mg Refills: 0 IRON ORAL Take by mouth. Refills: 0 letrozole 2.5 mg Tab Commonly known as: Femara Take 1 tablet by mouth daily. 2.5 mg Quantity: 90 tablet Refills: 2 lisinopriL 10 mg Tab Commonly known as: Prinivil;Zestril Daily Refills: 0 LORazepam 1 mg Tab Commonly known as: Ativan nightly as needed. Once Refills: 0 metFORMIN 500 mg Tab Commonly known as: Glucophage Twice a day Refills: 0 pravastatin 20 mg Tab Commonly known as: Pravachol Refills: 0 sertraline 50 mg Tab Commonly [...] PE: Patient declined physical exam itals BP (!) 121/92 (Patient Position: Sitting) Pulse (!) 101 Temp 36.6 ??C (97.9 ??F) (Temporal) Resp 26 Ht 152.4 cm (5') Wt 105.8 kg (233 lb 3.2 oz) SpO2 97% BMI 45.54 kg/m?? Pathology: Oncotype DX breast recurrence score for my comments and not +1-3: 29 corresponded to distant recurrence risk at 10 years of 23%. With Tamoxifen alone A ??- Outside slide(s) labeled [id number], collection date 11/11/2018. 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 On submitted slides (reviewed) - ER immunoreactivity: Positive (>90% cancer cells with immunostaining) Stain intensity: Intermediate and Strong WI immunoreactivity: Positive (>90% cancer cells with immunostaining) Stain intensity: Strong HER2 IHC - Per report, 1+/Negative B ??- Outside slide(s) labeled [id number], collection date 12/07/2018. 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 - Ductal carcinoma in-situ (DCIS), high grade with comedonecrosis. - See Synoptic report. B - Lymph node, Beau[place] #1, left axillary, excision (4 slides labeled B)- - Metastatic carcinoma to one of two lymph nodes. - The anita metastasis measures 1.9 cm. - Extranodal invasion is present. 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 C - Lymph node, left axilla, excision (3 slides labeled C)- - One benign node. D - Lymph node, [place] #2, left axillary, excision (1 slide labeled D)- - One benign node. E - Lymph node, [place] #3, left axillary, excision (2 slides labeled [...] Lymph Nodes Examined: ?6 ? Number of [place] Nodes Examined: ?5 Pathologic Stage Classification (pTNM, AJCC 8th Edition) ?Primary Tumor (Invasive Carcinoma) (pT): ?pT2 ?Regional Lymph Nodes (pN) ? Category (pN): ?? pN1a Labs: 11/08/20- WBC-6.67 Hgb/Hct-10.5/33.7 Plt-197 ANC-5.02 Na-142 K+-4.3 BUN/Cr-22/1.4 glucose-97 Ca-9.1 AST-13 ALT-26 Alk phos-105 Albumin-3.8 Ferritin-38 04/04/2020 WBC 6, hemoglobin 10.2, platelet count 209, ANC 4.7, haptoglobin 185, iron 37, TIBC 311, transferrin saturation 12%, ferritin 31, BUN 15, creatinine 1.23 B0.3, alkaline phosphatase 92, LDH 124, TB 0.3, AST 15, ALT 23, alkaline phosphatase 92, LDH 124, SPEP no M spike, no apparent monoclonal protein, folate more than 20, TSH 4.27, free T4 1.02 Methylmalonic acid 0.34. 12/21/19-WBC-6.39 Hgb/Hct-10.1/31.8 MCV-85.0 Plt-226 ANC-5.07 Retic count-1.5 [...] with focal micropapillary features.gr3, LVI-, marilynn neg, ER+/WI+, Her2 IHC neg, LN 2/6, DCIS, [id number] (stage IIA) Treatment: -12/07/2018 left mastectomy and [...] I would like to hold medication for a month and to see if any improvement in her arthritis. Meanwhile she will be seen by phlebotomist supervisor/instructor as well. I will see her back in 1 months to decide if she continues with aromatase inhibitors versus switching her to tamoxifen Myesha held letrozole for 6 weeks with no improvement in her musculoskeletal symptoms. I recommend to resume letrozole 2.5 mg a day. #DEXA: Normal #Depressed mood: On Zoloft, will follow with primary care Dr. Avendaño on coming Wednesday #Anemia: Colonoscopy and EGD revealed polyps in the stomach bowel, but no source of bleeding. We discussed IV iron Venofer. She does not want to any treatment at this time. Will call us if she changeher mind In spite of taking ferrous sulfate your ferritin remains low normal, transferrin saturation is low.Folic acid within normal range, methylmalonic acid is pending. No monoclonal protein on SPEP. Reason why she is not responding to iron supplements can be concomitant protein pump inhibitor omeprazoleblocking absorption of iron versus chronic blood loss. I will take liberty to refer her to surgeon Dr. Bedolla for consideration of upper and lower endoscopies. The other reason for anemia could be her chronic renal insufficiency and possible rheumatological disease. She is going to see a phlebotomist supervisor/instructor in May. We may consider a trial [...] she may need IV iron. Plan: 1. Restart letrozole 2.5 mg a day 2. Next visit in 6 months with CBC, CMP and Ferritin Myesha is by herself today. The voiced understanding of the plan [...] PM EDT Office Visit Hematology/Oncology at [address] [phone] Edgar Carreon MD [facility] [address] [place] [address] Kadie Gaming APRN [facility] [place] [address] 05/15/2024 3:30 PM EST Office Visit Radiation Oncology at [address] [phone] Patsy Shelton MD [facility] [place] [address] documented as of this encounter Visit Diagnoses Diagnosis Breast cancer, stage 2, left Iron deficiency anemia, unspecified iron deficiency anemia type documented in this encounter Care Teams Natural Gas Shothole Driller Relationship Specialty Start Date End Date Navid Avendaño MD [address] [place] [address] [facility] [place] [address] PCP - General Family Medicine 01/24/19 documented as of this encounter
--- OUTSIDE RECORDS SUMMARY | 2024-02-29 01:29 | XMS_ITS | Encounter Summary ---
Author Organization [facility] Address [facility] [address] [place] [place] [address] Care Team Providers Care Document Management Consultant Name Role Phone Navid Avendaño MD Primary Care Provider [phone] [phone] Encounter Details Date Type Department Care Team (Late st Contact Info) Description 06/10/2021 Refill Hematology/Oncology at [address] [phone] Ethel Christianson, RN Hormone receptor positive malignant [...] 2:30 PM EDT Office Visit Hematology/Oncology at [address] [phone] Edgar Carreon MD [facility] DR HEMATOLOGY [place] [address] Kadie Gaming APRN [facility] [place] [address] 05/15/2024 3:30 PM EST Office Visit Radiation Oncology at [address] [phone] Patsy Shelton MD [facility] [place] [address] documented as of this encounter Visit Diagnoses Diagnosis 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 documented in this encounter Care Teams Document Management Consultant Relationship Specialty Start Date End Date Navid Avendaño MD [address] [place] [address] PCP - General Family Medicine 01/24/19 documented as of this encounter
--- OUTSIDE RECORDS SUMMARY | 2024-02-29 01:29 | XMS_ITS | Encounter Summary ---
Author Organization [facility] Address [facility] [address] [place] [place] [address] Care Team Providers Care Missileman Name Role Phone Navid Avendaño MD Primary Care Provider +1 [phone] Reason for Visit * Reason Comments Follow-up Encounter Details Date Type Department Care Team (Late st Contact Info) Description 03/29/2023 9:00 AM EDT Office Visit Radiation Oncology at [address] [phone] Patsy Shelton MD [facility] [place] [address] Dense breast tissue on mammogram; S/P radiotherapy Social History Tobacco Use [...] * Patient Instructions* Patsy Shelton MD - 03/29/2023 9:00 AM EDT Your exam is without worrisome finding. Someone will call you about whether insurance will cover MRI for R breast screening. I will inform Dr. Carreon about hot flashes. Someone will contact you to schedule followup in 6 months. documented in this encounter Progress Notes * Patsy Shelton MD - 03/29/2023 9:00 AM EDT Images from the original note were not included. CC: Sched'd fu s/p xrt completion. HPI: Myesha is a 77 y/o f who completed xrt to L supraclav fossa, L axilla & L chest wall 3 yrs, 10 mos ago (05/15/19) for breast ca, L, IDC w/dominant pattern of micropapillary ca, gr 3, ER+MN+,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 S/p 1 cycle docetaxel/cyclophosphamide followed by discontinuation of chemo after infusion rxn to 2nd cycle. Letrozole started after xrt completion, & she continues on it. 01/01/21 Dr. Jewell, Derm, inflamed seborrheic keratoses tx'd w/LN2, rtc 1 mo. 02/26/23 R mmg: Neg. Note of dense breast tissue. S: Occasional brief shooting discomfort in lateral R breast. Bothered by hot flashes. Increased frequency of urination. No dysuria. Past Medical History: Diagnosis Date Anxiety Avila [...] ROBOTIC performed by Anthony Belle MD at [facility] MAIN OR PRO LAPAROSCOPY W TOT HYSTERECTUTERUS <=250 GRAM W TUBE/OVARY N/A 03/28/2015 LAPAROSCOPY,TOTAL HYST, UTERUS<250GM, EVER TYBE &/OR OVARY, ROBOTIC ASSIST performed by Anthony Belle MD at [facility] MAIN OR Cataract surg OU. Physical [...] normal. Judgment: Judgment normal. A: LIZETH. Intermittent discomfort lateral R breast w/R mmg showing dense breast tissue. Hot flashes. Increased frequency of urination. P: MRI R breast. Notify Dr. Carreon about hot flashes. Notify PCP Dr. Avendaño about increased frquency of urination. Rtc 6 mos. 15 mins in encounter. documented in this encounter Plan of Treatment Upcoming Encounters Date Type Department Care Team (Late st Contact Info) Description 03/21/2024 2:30 PM EDT Office Visit Hematology/Oncology at [address] [phone] Edgar Carreon MD [facility] [address] [place] [address] Kadie Gaming APRN [facility] [place] [address] 05/15/2024 3:30 PM EST Office Visit Radiation Oncology at [address] [phone] Patsy Shelton MD [facility] [place] [address] documented as of this encounter Visit Diagnoses Diagnosis Dense breast tissue on mammogram S/P radiotherapy Convalescence following radiotherapy documented in this encounter Care Teams Missileman Relationship Specialty Start Date End Date Navid Avendaño MD [address] [place] [address] PCP - General Family Medicine 01/24/19 documented as of this encounter
--- OUTSIDE RECORDS SUMMARY | 2024-02-29 01:29 | XMS_ITS | Encounter Summary ---
Author Organization [facility] [address] [place] [address] Care Team Providers Care Coatings Inspector Name Role Phone Navid Avendaño MD Primary Care Provider +1 [phone] Encounter Details Date Type Department Care Team (Late Contact Info) Description 06/08/2019 Orders Only Hematology [place] [address] Edgar Carreon MD [facility] [address] [place] [address] 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 [...] 2:30 PM EDT Office Visit Hematology/Oncology at [address] [phone] Edgar Carreon MD [facility] [place] [address] Kadie Gaming APRN [facility] [place] [address] 05/15/2024 3:30 PM EST Office Visit Radiation Oncology at [address] [phone] Patsy Shelton MD [facility] [place] [address] documented as of this encounter Visit Diagnoses Diagnosis 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 documented in this encounter Care Teams Coatings Inspector Relationship Specialty Start Date End Date Navid Avendaño MD [address] [place] [address] [address] [place] [address] PCP - General Family Medicine 01/24/19 documented as of this encounter
--- OUTSIDE RECORDS SUMMARY | 2024-02-29 01:29 | XMS_ITS | Encounter Summary ---
Author Organization [facility] [address] [place] [address] Care Team Providers Care Gauger Delivery Name Role Phone Navid Avendaño MD Primary Care Provider +1 [phone] Reason for Visit * Reason Comments Medication Refill Encounter Details Date Type Department Care Team (Late Contact Info) Description 09/05/2020 Refill Hematology [place] [address] Edgar Carreon MD [facility] [address] [place] [address] 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 [...] 2:30 PM EDT Office Visit Hematology/Oncology at [address] [phone] Edgar Carreon MD [facility] [address] [place] [address] Kadie Gaming APRN [facility] [place] [address] 05/15/2024 3:30 PM EST Office Visit Radiation Oncology at [address] [phone] Patsy Shelton MD [facility] [place] [address] documented as of this encounter Visit Diagnoses Diagnosis 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 documented in this encounter Care Teams Gauger Delivery Relationship Specialty Start Date End Date Navid Avendaño MD [address] [place] [address] PCP - General Family Medicine 01/24/19 documented as of this encounter
--- OUTSIDE RECORDS SUMMARY | 2024-02-29 01:29 | XMS_ITS | Encounter Summary ---
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 Santizo returns to the [facility] for follow-up of breast cancer. She is currently on letrozole daily which she started on May. Plan placed medication. Myesha developed joint pain, stiffness and numbness tingling in the hands about 2 weeks ago. It does interfere with her daily activity. She started to drop things from her hands.Dr. Avendaño did some work-up and refer her to manager immunology who she is going to see in [...] hypotension. Medications: Your Medications Accurate as of May 28, 2020 10:57 AM. If you have any questions, ask [...] PE: Patient declined physical exam itals BP 123/62 (Patient Position: Sitting) Pulse 78 Temp 36.5 ??C (97.7 ??F) (Temporal) Resp16 Ht 152.4 cm (5') Wt 102.1 kg (225 lb) SpO2 99% BMI 43.94 kg/m?? Pathology: Oncotype DX breast recurrence score for my comments and not +1-3: 29 corresponded to distant recurrence risk at 9 years of 23%. With Tamoxifen alone A ??- Outside slide(s) labeled [id number], collection date 11/11/2018. 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 On submitted slides (reviewed) - ER immunoreactivity: Positive (>90% cancer cells with immunostaining) Stain intensity: Intermediate and Strong MD immunoreactivity: Positive (>90% cancer cells with immunostaining) Stain intensity: Strong HER2 IHC - Per report, 1+/Negative B ??- Outside slide(s) labeled [id number], collection date 12/07/2018. 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 - Ductal carcinoma in-situ (DCIS), high grade with comedonecrosis. - See Synoptic report. B - Lymph node, [place] #1, left axillary, excision (4 slides labeled B)- - Metastatic carcinoma to one of two lymph nodes. - The anita metastasis measures 1.9 cm. - Extranodal invasion is present. 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 C - Lymph node, left axilla, excision (3 slides labeled C)- - One benign node. D - Lymph node, [place] #2, left axillary, excision (1 slide labeled D)- - One benign node. E - Lymph node, [place] #3, left axillary, excision (2 slides labeled [...] Lymph Nodes Examined: ?6 ? Number of [place] Nodes Examined: ?5 Pathologic Stage Classification (pTNM, AJCC 8th Edition) ?Primary Tumor (Invasive Carcinoma) (pT): ?pT2 ?Regional Lymph Nodes (pN) ? Category (pN): ?? pN1a Labs: 04/04/2020 WBC 6, hemoglobin 10.2, platelet count 209, ANC 4.7, haptoglobin 185, iron 37, [id number], transferrin saturation 12%, ferritin 31, BUN 15, [...] with focal micropapillary features.gr3, LVI-, marilynn neg, ER+/MD+, Her2 IHC neg, LN 2/6, DCIS, [id number] (stage IIA) Treatment: -12/07/2018 left mastectomy and [...] arthritis. Meanwhile she will be seen by manager immunology as well. I will see her back [...] disease. She is going to see a manager immunology in May. We may consider a trial [...] visits with any questions/concerns or new symptoms. 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 Santizo returns to the [facility] for follow-up of breast cancer. She held letrozole for 6 weeks following with no improvement in her stiffness and joint ache. She was seen by manager immunology and was referred to a neurologist. Dr. Bedolla performed EGD and colonoscopy on May 22. Myesha feels at her baseline. PMH: Gastric and colonic [...] hypotension. Medications: Your Medications Accurate as of May 28, 2020 10:57 AM. If you have any questions, ask [...] PE: Patient declined physical exam itals BP 123/62 (Patient Position: Sitting) Pulse 78 Temp 36.5 ??C (97.7 ??F) (Temporal) Resp16 Ht 152.4 cm (5') Wt 102.1 kg (225 lb) SpO2 99% BMI 43.94 kg/m?? Pathology: Oncotype DX breast recurrence score for my comments and not +1-3: 29 corresponded to distant recurrence risk at 10 years of 23%. With Tamoxifen alone A ??- Outside slide(s) labeled [id number], collection date 11/11/2018. 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 On submitted slides (reviewed) - ER immunoreactivity: Positive (>90% cancer cells with immunostaining) Stain intensity: Intermediate and Strong MD immunoreactivity: Positive (>90% cancer cells with immunostaining) Stain intensity: Strong HER2 IHC - Per report, 1+/Negative B ??- Outside slide(s) labeled [id number], collection date 12/07/2018. 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 - Ductal carcinoma in-situ (DCIS), high grade with comedonecrosis. - See Synoptic report. B - Lymph node, [place] #1, left axillary, excision (4 slides labeled B)- - Metastatic carcinoma to one of two lymph nodes. - The anita metastasis measures 1.9 cm. - Extranodal invasion is present. 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 C - Lymph node, left axilla, excision (3 slides labeled C)- - One benign node. D - Lymph node, [place] #2, left axillary, excision (1 slide labeled D)- - One benign node. E - Lymph node, [place] #3, left axillary, excision (2 slides labeled E)- - Two benign nodes. F - Medial Skin edge, excision (2 slides labeled F) - - Benign skin and subcutis. Specimen ?Procedure: ??Total mastectomy ?Specimen Laterality: ?? Left Tumor ?Histologic Type: ?? Invasive carcinoma of no special type (ductal, not ? otherwise specified) ?Histologic Type Comments: ?? with micropapillary features ?Histologic Grade ([place] Histologic Score) ? Glandular (Acinar) / Tubular [...] Lymph Nodes Examined: ?6 ? Number of [place] Nodes Examined: ?5 Pathologic Stage Classification (pTNM, AJCC 8th Edition) ?Primary Tumor (Invasive Carcinoma) (pT): ?pT2 ?Regional Lymph Nodes (pN) ? Category (pN): ?? pN1a Labs: 04/04/2020 WBC 6, hemoglobin 10.2, platelet count 209, ANC 4.7, haptoglobin 185, iron 37, [id number], transferrin saturation 12%, ferritin 31, BUN 15, creatinine 1.23 B0.3, alkaline phosphatase 92, LDH 124, TB 0.3, AST 15, ALT 23, alkaline phosphatase 92, LDH 124, SPEP no M spike, no apparent monoclonal protein, folate more than 20, TSH 4.27, free T4 1.02 Methylmalonic acid 0.34. 6/18/20-WBC-6.39 Hgb/Hct-10.1/31.8 MCV-85.0 Plt-226 ANC-5.07 Retic count-1.5 Haptoglobin-207 [...] with focal micropapillary features.gr3, LVI-, marilynn neg, ER+/MD+, Her2 IHC neg, LN 2/6, DCIS, [id number] (stage IIA) Treatment: -12/07/2018 left mastectomy and [...] arthritis. Meanwhile she will be seen by manager immunology as well. I will see her back [...] disease. She is going to see a manager immunology in May. We may consider a trial [...] 2:30 PM EDT Office Visit Hematology/Oncology at [address] [phone] Edgar Carreon MD [facility] HEMATOLOGY [place] [address] Kadie Gaming APRN [facility] [place] [address] 05/15/2024 3:30 PM EST Office Visit Radiation Oncology at [address] [phone] Patsy Shelton MD [facility] [place] [address] documented as of this encounter Visit Diagnoses Diagnosis Breast cancer, stage 2, left Anemia, unspecified type assisted current use of aromatase inhibitor Use of aromatase inhibitors documented in this encounter Care Teams Urologic Nurse Relationship Specialty Start Date End Date Navid Avendaño MD [address] [place] [address] PCP - General Family Medicine 01/24/19 documented as of this encounter
--- OUTSIDE RECORDS SUMMARY | 2024-02-29 01:29 | XMS_ITS | Encounter Summary ---
Author Organization [facility] Address [facility] [place] [place] [address] Care Team Providers Care Pre Sales Network Engineer Name Role Phone Navid Avendaño MD Primary Care Provider [phone] [phone] Reason for Visit * Reason Comments Follow-up Encounter Details Date Type Department Care Team (Late st Contact Info) Description 10/20/2021 2:00 PM EDT Office Visit Radiation Oncology at [address] [phone] Patsy Shelton MD [facility] [address] [place] [address] S/P radiotherapy Social History Tobacco Use Types [...] Sign Reading Time Taken Comments Blood Pressure 155/75 10/20/2021 2:24 PM EDT Pulse 78 10/20/2021 2:24 PM EDT Temperature 36.5 ??C (97.7 ??F) 10/20/2021 2 :24 PM EDT Respiratory Rate 16 10/20/2021 2:24 PM EDT Oxygen Saturation 98% 10/20/2021 2:2 4 PM EDT Inhaled Oxygen Concentration - - Weight 105.1 kg (231 lb 12. 8 oz) 10/20/2021 2:24 PM EDT with shoes Height - - Body Mass Index 44.92 08/06/2021 2:03 PM EST documented in this encounter Patient Instructions * Patient Instructions* Patsy Shelton MD - 10/20/2021 2:41 PM EDT Your exam is without worrisome finding. Someone will contact you to schedule followup in Aug. documented in this encounter Progress Notes * Patsy Shelton MD - 10/20/2021 2:00 PM EDT Images from the original note were not included. Intermittent tightness L chest, declines PT, discussed stretching exercises. CC: Sched'd fu s/p xrt completion. HPI: Myesha is a 76 y/o f who completed xrt to L supraclav fossa, L axilla & L chest wall 2 yrs, 5 mos ago (05/15/19) for breast ca, L, IDC w/dominant pattern of micropapillary ca, gr 3, ER+WV+, 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 S/p 1 cycle docetaxel/cyclophosphamide followed by discontinuation of chemo after infusion rxn to 2nd cycle. Letrozole started after xrt completion, & she continues on it. 01/01/21 Dr. Jewell, Derm, inflamed seborrheic keratoses tx'd w/LN2, rtc 1 mo. 02/20/21 R mmg: Neg. Subjective: Intermittent tightness L chest wall. Seen by PCP recently (Dr. Avendaño), & he ordered R mmg for yearly check. Past Medical History: Diagnosis Date ??? Anxiety [...] ROBOTIC performed by Anthony Belle MD at [facility] MAIN OR ? ? PRO LAPAROSCOPY W TOT HYSTERECTUTERUS <=250 GRAM W TUBE/OVARY N/A 03/28/2015 LAPAROSCOPY,TOTAL HYST, UTERUS<250GM, EVER TYBE &/OR OVARY, ROBOTIC ASSIST performed by Anthony Belle MD at [facility] MAIN OR Cataract surg OU. Physical Exam Constitutional: General: She is not in acute distress. Appearance: She is well-developed. She is not diaphoretic. Comments: BP 155/75 (Patient Position: Sitting) Pulse 78 Temp 36.5 ??C (97.7 ??F) (Temporal) Resp 16 Wt 105.1 kg (231 lb 12.8 oz) Comment: with shoes SpO2 98% BMI 44.92 kg/m?? HENT: Head: Normocephalic and atraumatic. Eyes: [...] content normal. Judgment: Judgment normal. A: LIZETH. P: Rtc Aug. Heme-Onc in Feb. 20 mins in encounter. documented in this encounter Plan of Treatment Upcoming Encounters Date Type Department Care Team (Late st Contact Info) Description 03/21/2024 2:30 PM EDT Office Visit Hematology/Oncology at [address] [phone] Edgar Carreon MD [facility] DR HEMATOLOGY [place] [address] Kadie Gaming APRN [facility] [place] [address] 05/15/2024 3:30 PM EST Office Visit Radiation Oncology at [address] [phone] Patsy Shelton MD [facility] [place] [address] documented as of this encounter Visit Diagnoses Diagnosis S/P radiotherapy Convalescence following radiotherapy documented in this encounter Care Teams Pre Sales Network Engineer Relationship Specialty Start Date End Date Navid Avendaño MD [address] [place] [address] [address] [place] [address] PCP - General Family Medicine 01/24/19 documented as of this encounter
--- OUTSIDE RECORDS SUMMARY | 2024-02-29 01:29 | XMS_ITS | Encounter Summary ---
Author Organization [facility] [place] [place] [address] Care Team Providers Care President And Chief Operating Officer Name Role Phone Navid Avendaño MD Primary Care Provider [phone] [phone] Encounter Details Date Type Department Care Team (Late Contact Info) Description 02/26/2023 Ancillary Procedure [place] [address] Navid Avendaño MD [address] [place] [address] Social History Tobacco Use Types [...] 2:30 PM EDT Office Visit Hematology/Oncology at [address] [phone] Edgar Carreon MD [facility] DR [place] [address] Kadie Gaming APRN [facility] [place] [address] 05/15/2024 3:30 PM EST Office Visit Radiation Oncology at [address] [phone] Patsy Shelton MD [facility] [place] [address] documented as of this encounter Procedures Procedure Name Priority Date/Time Associated Diagnosis Comments FILM LIBRARY STORAGE ONLY MAMMO Routine 02/26/2023 12:00 AM EDT documented in this encounter Results * Film Library- Storage Only Mammo (02/26/2023 12:00 AM EDT) Narrative [facility] - 03/06/2023 9:11 PM EDT This exam is auto-finalizing. It's purpose is for storage only. Navid Avendaño MD IMG FILM LIBRARY ORDERABLES Performing Organization Address City/State/[facility] Co de Phone Number [place], [place] documented in this encounter Visit Diagnoses Not on filedocumented in this encounter Care Teams President And Chief Operating Officer Relationship Specialty Start Date End Date Navid Avendaño MD [address] [place] [address] PCP - General Family Medicine 01/24/19 documented as of this encounter
--- OUTSIDE RECORDS SUMMARY | 2024-02-29 01:29 | XMS_ITS | Encounter Summary ---
Author Organization [facility] [place] [place] [address] Care Team Providers Care Regional Sales Executive Name Role Phone Navid Avendaño MD Primary Care Provider [phone] [phone] Encounter Details Date Type Department Care Team (Late Contact Info) Description 02/20/2021 Ancillary Procedure [place] [phone] Navid Avendaño MD [address] [place] [address] Social History Tobacco Use Types [...] PM EDT Office Visit Hematology/Oncology at [address] [phone] Edgar Carreon MD [facility] [place] [address] Kadie Gaming APRN [facility] [place] [address] 05/15/2024 3:30 PM EST Office Visit Radiation Oncology at [address] [phone] Patsy Shelton MD [facility] [place] [address] documented as of this encounter Procedures Procedure Name Priority Date/Time Associated Diagnosis Comments FILM LIBRARY STORAGE ONLY MAMMO Routine 02/20/2021 12:00 AM EDT documented in this encounter Results * Film Library- Storage Only Mammo (02/20/2021 12:00 AM EDT) Narrative [facility] - 03/04/2021 1:48 PM EDT This exam is auto-finalizing. It's purpose is for storage only. Navid Avendaño MD IMG FILM LIBRARY ORDERABLES Performing Organization Address City/State/[facility] Co de Phone Number [place], [place] documented in this encounter Visit Diagnoses Not on filedocumented in this encounter Care Teams Regional Sales Executive Relationship Specialty Start Date End Date Navid Avendaño MD [address] [place] [address] PCP - General Family Medicine 01/24/19 documented as of this encounter
--- OUTSIDE RECORDS SUMMARY | 2024-02-29 01:29 | XMS_ITS | Encounter Summary ---
Author Organization [facility] Address [facility] [place] [place] [address] Care Team Providers Care Transit Vehicle Inspector Name Role Phone Navid Avendaño MD Primary Care Provider [phone] [phone] Reason for Referral * Consultation (Routine) - Specialty Diagnoses / Procedures Referred By Moses damian Referred To Contact Dermatology Diagnoses Skin lesion Patsy Shelton MD [facility] [place] [address] Kingsley Vasques MD [address] [place] [address], [place] [address] Referral ID Status Reason Start Date Expiration Date V isits Requested Visits Authorized [id number] Consult, Test & Treat Non PCP 09/30/2020 03/29/2021 1 1 Reason for Visit * Reason Comments Radiation Follow-up Encounter Details Date Type Department Care Team (Late st Contact Info) Description 09/30/2020 3:30 PM EDT Office Visit Radiation Oncology at [address] [phone] Patsy Shelton MD [facility] [place] [address] Breast cancer screening by mammogram; Skin lesion Social History Tobacco Use Types Packs/Day Years [...] Sign Reading Time Taken Comments Blood Pressure 134/68 09/30/2020 3:38 PM EDT Pulse 83 09/30/2020 3:38 PM EDT Temperature 36.4 ??C (97.5 ??F) 09/30/2020 3 :38 PM EDT Respiratory Rate 18 09/30/2020 3:38 PM EDT Oxygen Saturation 99% 09/30/2020 3:3 8 PM EDT Inhaled Oxygen Concentration - - Weight 106.7 kg (235 lb 3.2 oz) 021 3:38 PM EDT with shoes Height - - Body Mass Index 45.93 05/28/2020 10:46 AM EST documented in this encounter Patient Instructions * Patient Instructions* Patsy Shelton MD - 09/30/2020 3:30 PM EDT I think it would be a good idea to have a manager intel looks @ the sores in front of your ears. Someone will contact you to schedule an appointment with Dr. Vasques, a manager intel in [place]. Someone will call you to schedule right mammogram to be done after 12/20/20. I would like to see you for followup in 6 months. Someone will contact you to schedule appointment. documented in this encounter Progress Notes * Patsy Shelton MD - 09/30/2020 3:30 PM EDT Images from the original note were not included. CC: Sched'd fu s/p xrt completion. HPI: Myesha is a 75 y/o f who completed xrt to L supraclav fossa, L axilla & L chest wall 1 yr., 4.5 mos ago (05/15/19) for breast ca, L, IDC w/dominant pattern of micropapillary ca, gr 3, ER+AK+, 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 S/p 1 cycle docetaxel/cyclophosphamide followed by discontinuation of chemo after infusion rxn to 2nd cycle. Letrozole started after xrt completion, & she continues on it. 12/21/19 R mmg: Neg. Subjective: No breast problem. No hand/arm swelling. [...] ROBOTIC performed by Anthony Belle MD at [facility] MAIN OR ? ? PRO LAPAROSCOPY W TOT HYSTERECTUTERUS <=250 GRAM W TUBE/OVARY N/A 03/28/2015 LAPAROSCOPY,TOTAL HYST, UTERUS<250GM, EVER TYBE &/OR OVARY, ROBOTIC ASSIST performed by Anthony Belle MD at [facility] MAIN OR Cataract surg OU. Physical Exam Constitutional: General: She is not in acute distress. Appearance: She is well-developed. She is not diaphoretic. Comments: BP 134/68 (Patient Position: Sitting) Pulse 83 Temp 36.4 ??C (97.5 ??F) (Temporal) Resp 18 Wt 106.7 kg (235 lb 3.2 oz) Comment: with shoes SpO2 99% BMI 45.93 kg/m?? HENT: Head: Normocephalic and atraumatic. Eyes: [...] Normal range of motion and neck supple. Lymphadenopathy: Head: Right side of head: No submental, submandibular, preauricular, posterior auricular or occipital adenopathy. Left side of head: No submental, submandibular, preauricular, posterior auricular or occipital adenopathy. Cervical: No cervical adenopathy. Upper Body: Right upper body: No supraclavicular or axillary adenopathy. Left upper body: No supraclavicular or axillary adenopathy. Skin: General: Skin is warm and dry. Comments: 1 cm scaley elevated lesion L preauricular area. 0.75 cm scaley elevated lesion R preauricular area. Neurological: Mental Status: She is alert and oriented to person, place, and time. Cranial Nerves: No cranial nerve deficit. Motor: No abnormal muscle tone. Coordination: Coordination normal. Psychiatric: Mood and Affect: Mood normal. Behavior: Behavior normal. Thought Content: Thought content normal. Judgment: Judgment normal. A: No evidence recurrent breast ca. Scaley lesions in B preauricular areas worrisome for possible skin ca. P: Referral to Dr. Vasques for eval B preauricular skin lesions. R mmg after 12/20/20, ordered. Rtc 6 mos. 30 mins in encounter. documented in this encounter Plan of Treatment Upcoming Encounters Date Type Department Care Team (Late st Contact Info) Description 03/21/2024 2:30 PM EDT Office Visit Hematology/Oncology at [address] [phone] Edgar Carreon MD [facility] HEMATOLOGY [place] [address] Kadie Gaming APRN [facility] DR MEDICAL [place] [address] 05/15/2024 3:30 PM EST Office Visit Radiation Oncology at [address] [phone] Patsy Shelton MD [facility] [place] [place] [address] Scheduled Referrals Name Type Priority Associated Diagnoses Order Schedule Referral to Dermatology Outpatient Referral Routine Skin lesion Ordered: 09/30/2020 documented as of this encounter Visit Diagnoses Diagnosis Breast cancer screening by mammogram Skin lesion Unspecified disorder of skin and subcutaneous tissue documented in this encounter Care Teams Transit Vehicle Inspector Relationship Specialty Start Date End Date Navid Avendaño MD [address] [place] [address] PCP - General Family Medicine 01/24/19 documented as of this encounter
--- OUTSIDE RECORDS SUMMARY | 2024-02-29 01:29 | XMS_ITS | Encounter Summary ---
[facility] Organization [facility] Address [facility] [address] [place] [address] Care Team Providers Care Parachute Panel Joiner Name Role Phone Navid Avendaño MD Primary Care Provider +1 [phone] Encounter Details Date Type Department Care Team (Latest Contact Info) Description 05/17/2020 12:31 PM EST - 05/17/2020 11:59 PM EST Hospital Encounter Laboratory [facility] [place] [address] Discharge Disposition: Home Social History Tobacco Use Types Packs/Day Years Used Date Smoking Tobacco: Never Smokeless Tobacco: Never Alcohol Use Standard Drinks/Week Comments No 0 (1 standard drink = 0.6 oz pur e alcohol) Sex and Gender Information Value Date Recorded Sex Assigned at Not on file Gender Identity Not on file Sexual Orientation Not on file documented as of this encounter Medications at Time of Discharge Medication Sig Dispensed Refills Start Date End Date gabapentin (Neurontin) 300 mg Capsule Take 300 mg by mouth nightly. celecoxib (CeleBREX) 100 mg Capsule Take 100 mg by mouth daily. Ca carb-Ca gluc-Mg ox-Mg gluco 500 mg calcium -250 mg Tablet Take by mouth. senna-docusate (PERICOLACE) 8.6-50 mg Tablet Take 1 tablet by mouth daily. 60 tablet 0 03/29/2015 acetaminophen (TYLENOL) 500 mg Tablet As needed 12/24/2012 aspirin 81 mg Tablet, Delayed Release (E.C.) Take 81 mg by mouth daily. 12/24/2012 lisinopril (PRINIVIL;ZESTRIL) 10 mg Tablet Daily 05/02/2013 metFORMIN (GLUCOPHAGE) 500 mg Tablet Twice a day 05/03/2014 omeprazole (PRILOSEC) 20 mg capsule Take by mouth 2 times daily. 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 90 tablet 3 06/08/2019 09/05/2020 ferrous sulfate (IRON ORAL) Take by mouth. 01/01/2021 rOPINIRole (REQUIP) 2 mg Tablet Take 2 mg by mouth nightly. 05/28/2020 cholecalciferol, Vitamin D3, 50 mcg (2,000 unit) Capsule Take by mouth daily. 09/08/2022 ibuprofen (ADVIL;MOTRIN) 600 mg Tablet Take 1 tablet by mouth every 6 hours as needed for Pain. 30 tablet 0 03/29/2015 09/30/2020 vitamin E 400 unit Capsule Daily 12/24/2012 09/08/2022 sertraline (ZOLOFT) 50 mg Tablet 100 mg. Daily 05/02/2013 02/18/2021 LORazepam (ATIVAN) 1 mg Tablet nightly as needed. Once 01/31/2015 01/01/2021 pravastatin (PRAVACHOL) 20 mg tablet 07/30/2006 03/17/2022 levothyroxine (SYNTHROID) 75 mcg tablet 75mcg, PO, Once daily 04/08/2006 03/17/2022 documented as of this encounter Plan of Treatment Upcoming Encounters Date Type Department Care Team (Late st Contact Info) Description 03/21/2024 2:30 PM EDT Office Visit Hematology/Oncology at [address] [phone] Edgar Carreon MD [facility] [place] [address] Kadie Gaming APRN [facility] [place] [address] 05/15/2024 3:30 PM EST Office Visit Radiation Oncology at [address] [phone] Patsy Shelton MD [facility] [place] [address] documented as of this encounter Procedures Procedure Name Priority Date/Time Associated Diagnosis Comments COVID-19 PCR Routine 05/17/2020 12:00 PM EST documented in this encounter Results * COVID-19 PCR (05/17/2020 12:00 PM EST) SARS-CoV-2 RNA Not Detected Not Detected [facility] Comment: This result should be interpreted in combination with the clinical observations, patient history and epidemiological information in making a final diagnosis. For testing of asymptomatic individuals, assay performance characteristics and clinical utility have not been evaluated. Testing for SARS-CoV-2 (Severe acute respiratory syndrome coronavirus 2, formerly known as 2019 novel coronavirus or 2019-nCoV) to aid in the diagnosis of COVID-19 is performed using the [employer] m SARS-CoV-2 Assay as authorized by the FDA Emergency Use Authorization (EUA). This EUA assay is intended for In-vitro Diagnostic (IVD) use with respiratory specimens such as nasopharyngeal swabs collected from individuals during the acute phase of infection. This assay is performed based on the instructions for use provided by [employer] and additional guidance provided by CDC and FDA. Testing is performed in the [facility] within the Department of Pathology and Laboratory Medicine at [facility], certified under the Clinical Laboratory Improvement Amendments of 1988 (CLIA), 42 U.S.C. 263a, to perform high complexity tests. Assay performance has been verified according to clinical laboratory regulatory requirements for use with specimens collected from individuals suspected of COVID-19. Test results are provided above. A result of ? Not Detected? indicates that the viral RNA target is not present above the limit of detection, but does not preclude SARS-CoV-2 infection. False negative results may occur if a specimen is improperly collected, transported or handled; if amplification inhibitors are present; or if inadequate numbers of viral particles are present in the specimen. When a diagnostic test is negative, the possibility of a false negative result should be considered in the context of a patient? s recent exposures and the presence of clinical signs and symptoms consistent with COVID-19. A result of ? Detected? indicates that RNA from SARS-CoV-2 was detected and the patient is infected. As required or requested by public health authorities, positive specimens may be sent for additional testing. Positive and negative predictive values for this test are highly dependent on disease prevalence. A result of ? Invalid? indicates that neither the viral RNA targets nor the internal control target was detected. An invalid result suggests the presence of inhibitors. Recollection and re-testing is recommended in the case of an invalid result. CDC COVID-19 criteria for testing on human specimens and clinical management guidance information are available at the CDC Coronavirus Disease 2019 (COVID-19) webpage under ? Information for Healthcare Professionals? (https://www.cdc.gov/coronavirus/2019-ncov/hcp/index.html) Additional information about this and other EUA tests can be found in provider and patient fact sheets at the following FDA website: https://www.fda.gov/medical-devices/dggvunbalqh-iqyqgpr-2757-nfrwu-92-atidxyrik- use-a uzmikzyjvwzaa-mcipxwj-pwcxnrj/gpwaa-luhhoiocmxj-ssjy SARS-CoV-2 RNA Source FINANCE EFFECTIVENESS MANAGER Swab [facility] Nasopharyngeal swab (specimen) Other / Unknown 05/17/2020 12:00 PM EST 05/18/2020 12:01 AM EST Narrative Resulting Agency Comment Spec In Lab Kelli Renee MD MOLECULAR ORD ERABLES [facility] [place] [id number] documented in this encounter Visit Diagnoses Not on filedocumented in this encounter Care Teams Parachute Panel Joiner Relationship Specialty Start Date End Date Navid Avendaño MD [address] [place] [address] PCP - General Family Medicine 01/24/19 documented as of this encounter
--- OUTSIDE RECORDS SUMMARY | 2024-02-29 01:29 | XMS_ITS | Encounter Summary ---
Author Organization [facility] [place] [address] Care Team Providers Care Cultural Centre Manager Name Role Phone Navid Avendaño MD Primary Care Provider [phone] [phone] Reason for Visit * Reason Onset Date Comments Medication Problem 05/31/2019 Femara Encounter Details Date Type Department Care Team ([facility] Contact Info) Description 05/31/2019 Telephone Hematology Oncology at [address] [phone] Delmis Dewey informatica architect Problem (Femara) Social History Tobacco Use Types Packs/Day Years [...] Telephone Encounter - Delmis Dewey RN - 05/31/2019 12:17 PM EST Myesha called concerned her Femara will cost too much the way Dr. Carreon ordered it. I called the pharmacy and they said they filled it and it will cost the pt $11. I called Myesha back and she isok with paying the $11. No changes needed. documented in this encounter Plan of Treatment Upcoming Encounters Date Type Department Care Team ([facility] Contact Info) Description 03/21/2024 2:30 PM EDT Office Visit Hematology/Oncology at [address] [phone] Edgar Carreon MD [facility] [address] [place] [address] Kadie Gaming APRN [facility] [place] [address] 05/15/2024 3:30 PM EST Office Visit Radiation Oncology at [address] [phone] Patsy Shelton MD [facility] [place] [address] documented as of this encounter Visit Diagnoses Not on filedocumented in this encounter Care Teams Cultural Centre Manager Relationship Specialty Start Date End Date Navid Avendaño MD [address] [place] [address] PCP - General Family Medicine 01/24/19 documented as of this encounter
--- OUTSIDE RECORDS SUMMARY | 2024-02-29 01:29 | XMS_ITS | Encounter Summary ---
[place] [address] Care Team Providers Care Digital Controls Technical Officer Name Role Phone Navid Avendaño MD Primary Care Provider [phone] [phone] Reason for Visit * Reason Onset Date Comments Prior Authorization 03/29/2023 Encounter Details Date Type Department Care Team (Late Contact Info) Description 03/29/2023 Telephone Hematology [place] [phone] Leigh Acuna Prior Authorization Social History Tobacco Use Types Packs/Day Years [...] encounter Miscellaneous Notes * Telephone Encounter - Leigh Alexander - 03/29/2023 3:54 PM EDT Procedure Prior Authorization Procedure/Cpt: 40615 MRI Bilateral breast Rationale for request: R92.2 Health plan: Corina Reina Authorizing insurance account representative name: as above Faxed to health plan on: 03/29/23 Health plan decision: [place] not required Authorization number: Effective Date: Facility: documented in this encounter Plan of Treatment Upcoming Encounters Date Type Department Care Team (Late Contact Info) Description 03/21/2024 2:30 PM EDT Office Visit Hematology/Oncology at [address] [phone] Edgar Carreon MD [facility] DR HEM[place] [address] Kadie Gaming APRN [facility] [place] [address] 05/15/2024 3:30 PM EST Office Visit Radiation Oncology at [address] [phone] Patsy Shelton MD [facility] [place] [address] documented as of this encounter Visit Diagnoses Not on filedocumented in this encounter Care Teams Digital Controls Technical Officer Relationship Specialty Start Date End Date Navid Avendaño MD [address] [place] [address] PCP - General Family Medicine 01/24/19 documented as of this encounter
--- OUTSIDE RECORDS SUMMARY | 2024-02-29 01:29 | XMS_ITS | Encounter Summary ---
Author Organization [place] [address] Care Team Providers Care Medical Case Worker Name Role Phone Navid Avendaño MD Primary Care Provider +1 [phone] Reason for Visit * Reason Comments IV Medication Venofer * Treatment/Therapy Plan Authorization (Routine) - Closed Specialty Diagnoses / Procedures Referred By Contac t Referred To Contact Diagnoses Iron deficiency anemia, unspecified iron deficiency anemia type Ethel Christianson RN Referral ID Status Reason Start Date Expiration Date Visits Re quested Visits Authorized [id number] Closed 11/13/2020 11/13/2021 99 99 Encounter Details Date Type Department Care Team (Late st Contact Info) Description 12/03/2020 2:00 PM EDT Infusion Hematology Oncology at [address] [phone] Iron deficiency anemia, unspecified iron deficiency anemia [...] Sign Reading Time Taken Comments Blood Pressure 131/57 12/03/2020 1:00 PM EDT Pulse 78 12/03/2020 1:00 PM EDT Temperature 36.3 ??C (97.3 ??F) 12/03/2020 1:00 PM ED T Respiratory Rate 20 12/03/2020 1:00 PM EDT Oxygen Saturation 98% 12/03/2020 1:00 PM EDT Inhaled Oxygen Concentration - - Weight - - Height - - Body Mass Index - - documented in this encounter Progress Notes * Delmis Dewey RN - 12/03/2020 2:00 PM EDT INFUSION THERAPY ADMINISTRATION NOTES DIAGNOSIS: Iron Deficiency REASON FOR VISIT: Venofer Week 1 of 4. SUBJECTIVE Myesha offers no complaints. OBJECTIVE LAB DATA: From 11/08/20: ferritin 38 Pre administration: Infusion orders independently verified for drug name, route, and dosage per patient's height, weight and BSA by Delmis Dewey RN and [facility]. REACTIONS (DESCRIPTION, TIME, INTERVENTION AND EFFECTIVENESS) none ASSESSMENT Myesha was awake, alert and tolerated treatment well. Patient remained in clinic for 30 min post infusion to monitor for reactions. PLAN Return to clinic next week for week 2. documented in this encounter Plan of Treatment Upcoming Encounters Date Type Department Care Team (Late st Contact Info) Description 03/21/2024 2:30 PM EDT Office Visit Hematology/Oncology at [address] [phone] Edgar Carreon MD [facility] DR [place] [address] Kadie Gaming APRN [facility] [place] [address] 05/15/2024 3:30 PM EST Office Visit Radiation Oncology at [address] [phone] Patsy Shelton MD [facility] [place] [address] documented as of this encounter Visit Diagnoses Diagnosis Iron deficiency anemia, unspecified iron deficiency anemia type documented in this encounter Administered Medications Inactive Administered Medications - up to 3 most recent administrations Medication Order MAR Action Action Date Dose Rate Site acetaminophen (Tylenol) tablet 975 mg 975 mg, Oral, ONCE, 1 dose, On Wed12/03/20 at 1345, Give prior to patient's infusion., Routine Given 12/03/2020 2:21 PM EDT 975 mg diphenhydrAMINE (Benadryl) capsule 25 mg 25 mg, Oral, ONCE, 1 dose, On 12/03/20 at 1345, Give Benadryl 25 mg PO prior to the patient's Venofer infusion., Routine Given 12/03/2020 2:21 PM EDT 25 mg hydrocortisone sodium succinate (pf) (Solu-CORTEF) (100 mg/2 mL) injection 100 mg 100 mg, Intravenous, ONCE, 1 dose, On 12/03/20 at 1345, Give prior to patient's infusion. Given 12/03/2020 2:21 PM EDT 100 mg iron sucrose (Venofer) 300 mg in sodium chloride 0.9% 115 mL infusion 300 mg, Intravenous, ONCE, 1 dose, On 12/03/20 at 1345, Administer over 90 Minutes, Patients should be closely monitored for signs of hypersensitivity during and for at least 30 min after each administration. The observation period is not needed for patients who have demonstrated tolerability. New Bag 12/03/2020 2:36 PM EDT 300 mg 76.7 mL/hr documented in this encounter Care Teams Medical Case Worker Relationship Specialty Start Date End Date Navid Avendaño MD [address] [place] [address] PCP - General Family Medicine 01/24/19 documented as of this encounter
--- OUTSIDE RECORDS SUMMARY | 2024-02-29 01:29 | XMS_ITS | Encounter Summary ---
Author Organization [facility] Address [facility] [place] [place] [address] Care Team Providers Care Handicrafts Teacher Name Role Phone Navid Avendaño MD Primary Care Provider +1 [phone] Encounter Details Date Type Department Care Team (Latest Contact Info) Description 09/08/2022 Travel Social History Tobacco Use Types Packs/Day [...] PM EDT Office Visit Hematology/Oncology at [address] [phone] Edgar Carreon MD [facility] [place] [address] Kadie Gaming APRN [facility] [place] [address] 05/15/2024 3:30 PM EST Office Visit Radiation Oncology at [address] [phone] Patsy Shelton MD [facility] [place] [address] documented as of this encounter Visit Diagnoses Not on filedocumented in this encounter Care Teams Handicrafts Teacher Relationship Specialty Start Date End Date Navid Avendaño MD [address] [place] [address] PCP - General Family Medicine 01/24/19 documented as of this encounter
--- OUTSIDE RECORDS SUMMARY | 2024-02-29 01:29 | XMS_ITS | Encounter Summary ---
Author Organization [facility] Address [facility] [place] [place] [address] Care Team Providers Care Varnish Maker Name Role Phone Navid Avendaño MD Primary Care Provider +1 [phone] Reason for Visit * Reason Comments Radiation Follow-up Encounter Details Date Type Department Care Team (Late st Contact Info) Description 04/21/2021 2:00 PM EDT Office Visit Radiation Oncology at [address] [phone] Patsy Shelton MD [facility] [address] [place] [address] S/P radiotherapy Social History Tobacco Use Types [...] Sign Reading Time Taken Comments Blood Pressure 158/110 04/21/2021 2:16 PM EDT Pulse 77 04/21/2021 2:16 PM EDT Temperature 36.4 ??C (97.6 ??F) 04/21/2021 2 :16 PM EDT Respiratory Rate 18 04/21/2021 2:16 PM EDT Oxygen Saturation 97% 04/21/2021 2:1 6 PM EDT Inhaled Oxygen Concentration - - Weight 105.6 kg (232 lb 12. 8 oz) 04/21/2021 2:16 PM EDT with shoes Height - - Body Mass Index 45.11 02/18/2021 1:28 PM EDT documented in this encounter Patient Instructions * Patient Instructions* Patsy Shelton MD - 04/21/2021 2:00 PM EDT Your exam is without worrisome finding. Someone will contact you to schedule followup with me in 6 months. documented in this encounter Progress Notes * Patsy Shelton MD - 04/21/2021 2:00 PM EDT Images from the original note were not included. CC: Sched'd fu s/p xrt completion. 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 S/p 1 cycle docetaxel/cyclophosphamide followed by discontinuation of chemo after infusion rxn to 2nd cycle. Letrozole started after xrt completion, & she continues on it. 01/01/21 Dr. Jewell, Derm, inflamed seborrheic keratoses tx'd w/LN2, rtc 1 mo. 02/20/21 R mmg: Neg. Subjective: Tenderness L chest wall & upper inner arm since xrt, managed w/tylenol 500 mg/d. Dr. Knight will be doing carpal tunnel surg R 05/14/21. R breast tender to palpation, attributed to fibrocystic dz. Sad that daughter moved to [place] for new job. Past Medical History: Diagnosis Date ??? Anxiety [...] ROBOTIC performed by Anthony Belle MD at [facility] MAIN OR ? ? PRO LAPAROSCOPY W TOT HYSTERECTUTERUS <=250 GRAM W TUBE/OVARY N/A 03/28/2015 LAPAROSCOPY,TOTAL HYST, UTERUS<250GM, EVER TYBE &/OR OVARY, ROBOTIC ASSIST performed by Anthony Belle MD at [facility] MAIN OR Cataract surg OU. Physical Exam Constitutional: General: She is not in acute distress. Appearance: She is well-developed. She is not diaphoretic. Comments: BP (S) (!) 158/110 (Patient Position: Sitting) Pulse 77 Temp 36.4 ??C (97.6 ??F) (Temporal) Resp 18 Wt 105.6 kg (232 lb 12.8 oz) Comment: with shoes SpO2 97% BMI 45.11 kg/m?? HENT: Head: Normocephalic and atraumatic. Eyes: [...] Judgment: Judgment normal. A: LIZETH. P: Rtc 6 mos. 20 mins in encounter. documented in this encounter Plan of Treatment Upcoming Encounters Date Type Department Care Team (Late st Contact Info) Description 03/21/2024 2:30 PM EDT Office Visit Hematology/Oncology at [address] [phone] Edgar Carreon MD [facility] DR HEMATOLOGY [place] [address] Kadie Gaming APRN [facility] [place] [address] 05/15/2024 3:30 PM EST Office Visit Radiation Oncology at [address] [phone] Patsy Shelton MD [facility] [place] [address] documented as of this encounter Visit Diagnoses Diagnosis S/P radiotherapy Convalescence following radiotherapy documented in this encounter Care Teams Varnish Maker Relationship Specialty Start Date End Date Navid Avendaño MD [address] [place] [address] PCP - General Family Medicine 01/24/19 documented as of this encounter
--- OUTSIDE RECORDS SUMMARY | 2024-02-29 01:29 | XMS_ITS | Encounter Summary ---
Author Organization [facility] Address [facility] [place] [place] [address] Care Team Providers Care Bank Operations Officer Name Role Phone Navid Avendaño MD Primary Care Provider +1 [phone] Encounter Details Date Type Department Care Team (Latest Contact Info) Description 09/28/2022 Travel Social History Tobacco Use Types Packs/Day [...] 2:30 PM EDT Office Visit Hematology/Oncology at [address] [phone] Edgar Carreon MD [facility] HEMATOLOGY [place] [address] Kadie Gaming APRN [facility] [place] [address] 05/15/2024 3:30 PM EST Office Visit Radiation Oncology at [address] [phone] Patsy Shelton MD [facility] [place] [address] documented as of this encounter Visit Diagnoses Not on filedocumented in this encounter Care Teams Bank Operations Officer Relationship Specialty Start Date End Date Navid Aevndaño MD [address] [place] [address] PCP - General Family Medicine 01/24/19 documented as of this encounter
--- OUTSIDE RECORDS SUMMARY | 2024-02-29 01:29 | XMS_ITS | Encounter Summary ---
Author Organization [facility] Address [facility] [place] [address] Care Team Providers Care Orthopedics Teacher Name Role Phone Navid Avendaño MD Primary Care Provider [phone] [phone] Reason for Visit * Reason Onset Date Comments Prior Authorization 07/30/2022 Encounter Details Date Type Department Care Team (Late Contact Info) Description 07/30/2022 Telephone [place] [phone] Leigh Acuna Prior Authorization Social History Tobacco [...] * Telephone Encounter - Leigh Alexander - 07/30/2022 2:57 PM EST Request PA for Dexa Scan. Call to [facility] Point: [phone] PA is not required. Call Ref #: [id number] Call start time: 2:42pm Call end time : 2:52pm documented in this encounter Plan of Treatment Upcoming Encounters Date Type Department Care Team (Late Contact Info) Description 03/21/2024 2:30 PM EDT Office Visit Hematology/Oncology at [address] [phone] Edgar Carreon MD [facility] [place] [address] Kadie Gaming APRN [facility] [place] [address] 05/15/2024 3:30 PM EST Office Visit Radiation Oncology at [address] [phone] Patsy Shelton MD [facility] [place] [address] documented as of this encounter Visit Diagnoses Not on filedocumented in this encounter Care Teams Orthopedics Teacher Relationship Specialty Start Date End Date Navid Avendaño MD [address] [place] [address] PCP - General Family Medicine 01/24/19 documented as of this encounter
--- OUTSIDE RECORDS SUMMARY | 2024-02-29 01:29 | XMS_ITS | Encounter Summary ---
Author Organization [facility] Address [facility] [address] [address] Care Team Providers Care Network Support Analyst Name Role Phone Navid Avendaño MD Primary Care Provider +1 [phone] Encounter Details Date Type Department Care Team (Late st Contact Info) Description 02/18/2021 1:30 PM EDT Office Visit Hematology/Oncology at [address] [phone] Edgar Carreon MD [facility] DR [place] [address] Ethel Christianson RN Breast cancer, stage 2, [...] Sign Reading Time Taken Comments Blood Pressure 122/49 02/18/2021 1:28 PM EDT Pulse 83 02/18/2021 1:28 PM EDT Temperature 36.7 ??C (98 ??F) 02/18/2021 1:28 PM EDT Respiratory Rate 18 02/18/2021 1:28 PM EDT Oxygen Saturation 97% 02/18/2021 1:28 PM EDT Inhaled Oxygen Concentration - - Weight 102.5 kg (226 lb) 02/18/2021 1:28 PM EDT Height 153 cm (5' 0.24) 02/18/2021 1:28 PM EDT Body Mass Index 43.79 02/18/2021 1:28 PM EDT documented in this encounter Progress Notes * Ethel Christianson, SECTION MAINTAINER - 02/18/2021 1:30 PM EDT Images from the original note were not included. 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 Depressive disorder F32.9 ??? Diabetes mellitus E11.9 ??? Essential hypertension I10 ??? Hyperlipidemia E78.5 ??? Diverticulitis of colon K57.32 ??? Primary osteoarthritis of both knees M17.0 ??? Restless legs syndrome G25.81 ??? S/P left mastectomy Z90.12 ??? 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 ??? Ventral hernia K43.9 HPI:Myesha Livingston referred by Dr. Bedolla for [...] scan was negative for pulmonary embolism. Interval history(02/18/21): Ms. Santizo returns to the [facility] for follow-up of breast cancer. She is currently on letrozole daily which she started on May. She is tolerating the letrozole well. She denies any hot flashes. She has some arthritis in her knees and uses a cane to ambulate. 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 She is seeing the neurologist inthe near future. She may have carpal tunnel. She has dropped things with this hand on occasion. Shesees Dr. Avendaño for follow up. Denies any cough, shortness of breath, loss of appetite or breast issues. Her main complaint today is stress. Her daughter and grandchild just moved to [place] leaving her here alone. Her ex son in law lives next door and does look out for her. She gets depressed being alone. Her sertraline was recently increased. No other focal complaints today. PMH: Arthritis Arthritis, depression September 2019- Right [...] Medications: Your Medications Accurate as of February 18, 2021 1:38 PM. If you have any questions, ask your nurse or doctor. Continued medications with new dosing Dose Details pravastatin 20 mg Tab Commonly known as: Pravachol What changed: See the new instructions. Refills: 0 PriLOSEC 20 mg Cpdr 20mg, [...] as: Glucophage Twice a day Refills: 0 sertraline 100 mg Tab Commonly [...] back. Neurological: Negative. Hematological: Negative for adenopathy. Physical Exam Constitutional: [...] right CVA tenderness. Musculoskeletal: Right lower leg: Edema present. Left lower leg: No edema. Lymphadenopathy: Cervical: [...] No edema in left arm. Vitals BP 122/49 (Patient Position: Sitting) Pulse 83 Temp 36.7 ??C (98 ??F) (Temporal) Resp 18 Ht 153 cm (5' 0.24) Wt 102.5 kg (226 lb) SpO2 97% BMI 43.79 kg/m?? Pathology: Oncotype DX breast recurrence score for my comments and not +1-3: 29 corresponded to distant recurrence risk at 10 years of 23%. With Tamoxifen alone A ??- Outside slide(s) labeled [id number], collection date 11/11/2018. 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 On submitted slides (reviewed) - ER immunoreactivity: Positive (>90% cancer cells with immunostaining) Stain intensity: Intermediate and Strong IL immunoreactivity: Positive (>90% cancer cells with immunostaining) Stain intensity: Strong HER2 IHC - Per report, 1+/Negative B ??- Outside slide(s) labeled [id number], collection date 12/07/2018. 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 - Ductal carcinoma in-situ (DCIS), high grade with comedonecrosis. - See Synoptic report. B - Lymph node, Divide #1, left axillary, excision (4 slides labeled B)- - Metastatic carcinoma to one of two lymph nodes. - The anita metastasis measures 1.9 cm. - Extranodal invasion is present. 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 C - Lymph node, left axilla, excision (3 slides labeled C)- - One benign node. D - Lymph node, Divide #2, left axillary, excision (1 slide labeled D)- - One benign node. E - Lymph node, Divide #3, left axillary, excision (2 slides labeled E)- - Two benign nodes. F - Medial Skin edge, excision (2 slides labeled F) - - Benign skin and subcutis. Specimen ?Procedure: ??Total mastectomy ?Specimen Laterality: ?? Left Tumor ?Histologic Type: ?? Invasive carcinoma of no special type (ductal, not ? otherwise specified) ?Histologic Type Comments: ?? with micropapillary features ?Histologic Grade (Lacarne Histologic Score) ? Glandular (Acinar) / Tubular [...] Lymph Nodes Examined: ?6 ? Number of Divide Nodes Examined: ?5 Pathologic Stage Classification (pTNM, AJCC 8th Edition) ?Primary Tumor (Invasive Carcinoma) (pT): ?pT2 ?Regional Lymph Nodes (pN) ? Category (pN): ?? pN1a Labs: 02/04/21- WBC-6.04 Hgb/Hct-10.5/33.4 MCV-87.7 Plt-162 ANC-4.39 Na-142 K+-43. BUN/Cr-20/1.5 Glucose-121 Ca-8.8 T. Bili-0.2 AST-14 ALT-25 Alk phos-101 Albumin-3.7 EkkW5A-7.0 Ferritin-215 11/08/20- WBC-6.67 Hgb/Hct-10.5/33.7 Plt-197 ANC-5.02 Na-142 [...] with focal micropapillary features.gr3, LVI-, marilynn neg, ER+/IL+, Her2 IHC neg, LN 2/6, DCIS, [id number] (stage IIA) Treatment: -12/07/2018 left mastectomy and [...] No clinical evidence of disease recurrence. Mammogram will be done on 02/20/21. Last DEXA in 2018 was normal. We can repeat at the end of this year. She will see Dr. Maharaj in April. #Depressed mood: On Zoloft which was recently increased. She follows with primary care Dr. Avendaño. We discussed resources for seniors in her area. Their is a meal site in [place] that would be available to her. She will think about this. #Anemia: She completed 3 doses of Venofer IV in December 2020. Ferritin today is 215. Hgb is 10.5 MCV 87.7. Remainder of lab workup was negative. 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 Plan: 1. Continue letrozole 2.5mg po daily. 3. Follow up visit in 6 months with CBC,CMP, Ferritin. Myesha voiced understanding of the plan and was given an opportunity to ask questions which I answered to the best of my ability. Myesha understands she can call the clinic between visits with any questions/concerns or new symptoms. Ethel Christianson MSN, SECTION MAINTAINER, AOCNP Medical Oncology documented in this encounter Plan of Treatment Upcoming Encounters Date Type Department Care Team (Late st Contact Info) Description 03/21/2024 2:30 PM EDT Office Visit Hematology/Oncology at [address] [phone] Edgar Carreon MD [facility] DR [place] [address] Kadie Gaming APRN [facility] [place] [address] 05/15/2024 3:30 PM EST Office Visit Radiation Oncology at [address] [phone] Patsy Shelton MD [facility] [place] [address] documented as of this encounter Visit Diagnoses Diagnosis Breast cancer, stage 2, left Iron deficiency anemia, unspecified iron deficiency anemia type documented in this encounter Care Teams Network Support Analyst Relationship Specialty Start Date End Date Navid Avendaño MD [address] [place], [place] [id number] PCP - General Family Medicine 01/24/19 documented as of this encounter
--- OUTSIDE RECORDS SUMMARY | 2024-02-29 01:29 | XMS_ITS | Encounter Summary ---
Author Organization [facility] Address [facility] [place] [place] [address] Care Team Providers Care Back End Architect Name Role Phone Navid Avendaño MD Primary Care Provider [phone] [phone] Encounter Details Date Type Department Care Team (Late st Contact Info) Description 08/05/2021 Orders Only Hematology/Oncology at [address] [phone] Ethel Christianson RN Iron deficiency anemia, unspecified iron deficiency anemia type; 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 [...] 2:30 PM EDT Office Visit Hematology/Oncology at [address] [phone] Edgar Carreon MD [facility] DR [place] [address] Kadie Gaming APRN [facility] [place] [address] 05/15/2024 3:30 PM EST Office Visit Radiation Oncology at [address] [phone] Patsy Shelton MD [facility] [place] [address] documented as of this encounter Visit Diagnoses Diagnosis Iron deficiency anemia, unspecified iron deficiency anemia type 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 documented in this encounter Care Teams Back End Architect Relationship Specialty Start Date End Date Navid Avendaño MD [address] [place] [address] PCP - General Family Medicine 01/24/19 documented as of this encounter
--- OUTSIDE RECORDS SUMMARY | 2024-02-29 01:29 | XMS_ITS | Encounter Summary ---
Author Organization [facility] [place] [address] Care Team Providers Care Motor Hotel Manager Name Role Phone Navid Avendaño MD Primary Care Provider +1 [phone] Reason for Visit * Reason Onset Date Comments Results 07/04/2019 Encounter Details Date Type Department Care Team (Late Contact Info) Description 07/04/2019 Telephone Hematology/Oncology at [address] [phone] Patel Berumen, BRANDON Results Social History Tobacco Use Types Packs/Day Years [...] encounter Miscellaneous Notes * Telephone Encounter - Patel Berumen RN - 07/04/2019 8:55 AM EST Pt cancelled FUV d/t road conditions today. Dr Carreon reviewed her CT and bone scan from 06/21/19. Called Pt to let her know scans are stable. She was pleased and also reports she is tolerating the letrozole well. She is aware her appointment was rescheduled to 07/18/2019 and will call in the interim with any questions or concerns. documented in this encounter Plan of Treatment Upcoming Encounters Date Type Department Care Team (Late Contact Info) Description 03/21/2024 2:30 PM EDT Office Visit Hematology/Oncology at [address] [phone] Edgar Carreon MD [facility] DR HEMATOLOGY [place] [address] Kadie Gaming APRN [facility] [place] [address] 05/15/2024 3:30 PM EST Office Visit Radiation Oncology at [address] [phone] Patsy Shelton MD [facility] [place] [address] documented as of this encounter Visit Diagnoses Not on filedocumented in this encounter Care Teams Motor Hotel Manager Relationship Specialty Start Date End Date Navid Avendaño MD [address] [place] [address] [address] [place] [address] PCP - General Family Medicine 01/24/19 documented as of this encounter
--- OUTSIDE RECORDS SUMMARY | 2024-02-29 01:29 | XMS_ITS | Encounter Summary ---
Author Organization [facility] [place] [address] Care Team Providers Care Machine Made Shoe Unit Worker Name Role Phone Navid Avendaño MD Primary Care Provider +1 [phone] Reason for Visit * Consultation (Routine) - Closed Specialty Diagnoses / Procedures Referred By Moses damian Referred To Contact Dermatology Diagnoses Disorder of the skin and subcutaneous tissue, unspecified Scaly, Non-Healing Lesion in B Preauncular Areas; New Patient-Notes Received Procedures Consult Navid Avendaño MD [address] [place] [address] 1 [place] [address] Santa Jewell MD [address] [place] [id number] Referral ID Status Reason Start Date Expiration Date V isits Requested Visits Authorized [id number] Closed Consult, Test & Treat PCP Updated and/or Approved 10/03/2020 10/03/2021 1 1 Encounter Details Date Type Department Care Team ([facility] Contact Info) Description 01/01/2021 3:30 PM EDT Office Visit Dermatology at [address] [place] [phone] Santa Jewell MD [address] [place] [address] Seborrheic keratoses; Inflamed seborrheic keratosis; Personal history of skin cancer Social History Tobacco Use Types Packs/Day Years Used Date Smoking Tobacco: Never Smokeless Tobacco: Never Alcohol Use Standard Drinks/Week Comments No 0 (1 standard drink = 0.6 oz pur e alcohol) Sex and Gender Information Value Date Recorded Sex Assigned at Not on file Gender Identity Not on file Sexual Orientation Not on file documented as of this encounter Progress Notes * Santa Jewell MD - 01/01/2021 3:30 PM EDT Images from the original note were not included. DEPARTMENT OF DERMATOLOGY Medical Dermatology Clinic Provider: Santa Jewell MD Patient's preferred name Myesha PAST MEDICAL HISTORY If no, type N. If yes, type date, location, treatment Melanoma n Dysplastic nevi n SCC Nose s/p excison BCC n AKs n UV Exposure & Protection N Other relevant past medical history (i.e. eczema, psoriasis, birthmarks, immunosuppression) n FAMILY HISTORY If yes, details Melanoma n NMSC n Other relevant family history n SOCIAL HISTORY Occupation: n/a History of Present Illness: Myesha Santizo is a 75 y.o. year old. Patient is referred to the clinic at the request of Navid Avendaño for spots on face and chest, never treated, slightly itchy, not sure if changing. Review of Systems: General: Feeling well. Skin: No other skin concerns. Medications: Reviewed in eD-H Allergies: Reviewed in eD-H Skin Examination: Focused skin examination of the face, chest, was normal with the exception of the findings below Assessment/Plan 1. Inflamed Seborrheic Keratosis [Scaly and crusted irritated red-brown stuck-on papule involving left ad right sideburn] - given clinical presentation described above, the lesion(s) meets the definition of inflammation and the patient requests to proceed with treatment - patient elects for localized treatment with LN2 after risks of pain, infection, blister formation, recurrence, and pigmentary alterations reviewed - wound care instructions reviewed with the patient - 2 lesion(s) treated with liquid nitrogen for 2 freeze and thaw cycles x 15 sec total thaw time (location as detailed in findings above) - patient advised to return to clinic for further evaluation if treated area(s) not resolved 2. Seborrheic Keratosis [Verrucous and pebbly, stuck-on patel to brown papules and plaques located on trunk and extremities] - benign, hereditary nature of this condition reviewed, reassurance provided - no treatment indicated at this time - patient instructed to return to clinic if any lesions change or become symptomatic 3. 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 -no evidence of recurrence SFP 30+ daily RTC: 1 month to revaluate ISK Santa Jewell MD Dermatology [facility] documented in this encounter Plan of Treatment Upcoming Encounters Date Type Department Care Team (Late st Contact Info) Description 03/21/2024 2:30 PM EDT Office Visit Hematology/Oncology at [address] [phone] Edgar Carreon MD [facility] DR [place] [address] Kadie Gaming APRN [facility] [place] [address] 05/15/2024 3:30 PM EST Office Visit Radiation Oncology at [address] [phone] Patsy Shelton MD [facility] [place] [address] documented as of this encounter Visit Diagnoses Diagnosis Seborrheic keratoses Inflamed seborrheic keratosis Personal history of skin cancer Personal history of other malignant neoplasm of skin documented in this encounter Care Teams Machine Made Shoe Unit Worker Relationship Specialty Start Date End Date Navid Avendaño MD [address] [place] [address] [place] [address] PCP - General Family Medicine 01/24/19 documented as of this encounter
--- OUTSIDE RECORDS SUMMARY | 2024-02-29 01:29 | XMS_ITS | Encounter Summary ---
Author Organization [facility] [place] [address] Care Team Providers Care Semiconductor Wafers Saw Operator Name Role Phone Navid Avendaño MD Primary Care Provider +1 [phone] Encounter Details Date Type Department Care Team (Late st Contact Info) Description 03/29/2023 Telephone Radiation Oncology at [address] [phone] Celeste Flynn RN Social History [...] Telephone Encounter - Celeste Flynn RN - 03/29/2023 4:58 PM EDT Voice mail left for Dr. Avendaño that patient seen in our clinic today for breast cancer follow up and has complaint of frequency of urination which we would like to relay. She has appointment to seeDr. Avendaño 04/15/23. I also left our clinic call back information and request for call back with any questions. * Telephone Encounter - Celeste Flynn RN - 03/29/2023 3:30 PM EDT ----- Message from Patsy Shelton MD sent at 03/29/2023 9:41 AM EDT ----- Celeste Rene, will you please call PCP (Dr. Avendaño in [place]) office & let them know that she reports increased frequency of urination & has appt w/Dr. Avendaño 04/15/23? Patsy documented in this encounter Plan of Treatment Upcoming Encounters Date Type Department Care Team (Late st Contact Info) Description 03/21/2024 2:30 PM EDT Office Visit Hematology/Oncology at [address] [phone] Edgar Carreon MD [facility] DR [place] [address] Kadie Gaming APRN [facility] [place] [address] 05/15/2024 3:30 PM EST Office Visit Radiation Oncology at [address] [phone] Patsy Shelton MD [facility] [place] [address] documented as of this encounter Visit Diagnoses Not on filedocumented in this encounter Care Teams Semiconductor Wafers Saw Operator Relationship Specialty Start Date End Date Navid Avendaño MD [address] [place] [address] [address] [place] [address] PCP - General Family Medicine 01/24/19 documented as of this encounter
--- OUTSIDE RECORDS SUMMARY | 2024-02-29 01:29 | XMS_ITS | Encounter Summary ---
Author Organization [facility] Address [facility] [address] [place] [address] Care Team Providers Care Pipe And Test Supervisor Name Role Phone Navid Avendaño MD Primary Care Provider [phone] [phone] Encounter Details Date Type Department Care Team (Late Contact Info) Description 04/13/2023 Refill Hematology/Oncology at [address] [phone] Edgar Carreon MD [facility] HEMATOLOGY [place] [address] 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 [...] PM EDT Office Visit Hematology/Oncology at [address] [phone] Edgar Carreon MD [facility] HEMATOLOGY [place] [address] Kadie Gaming APRN [facility] [place] [address] 05/15/2024 3:30 PM EST Office Visit Radiation Oncology at [address] [phone] Patsy Shelton MD [facility] [place] [address] documented as of this encounter Visit Diagnoses Diagnosis 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 documented in this encounter Care Teams Pipe And Test Supervisor Relationship Specialty Start Date End Date Navid Avendaño MD [address] [place] [address] PCP - General Family Medicine 01/24/19 documented as of this encounter
--- OUTSIDE RECORDS SUMMARY | 2024-02-29 01:29 | XMS_ITS | Encounter Summary ---
Author Organization [facility] Address [facility] [place] [place] [address] Care Team Providers Care Nuclear Instructor Name Role Phone Navid Avendaño MD Primary Care Provider [phone] [phone] Reason for Visit * Reason Comments Radiation Follow-up Encounter Details Date Type Department Care Team (Late st Contact Info) Description 06/26/2019 4:00 PM EST Office Visit Radiation Oncology at [address] [phone] Patsy Shelton MD [facility] [place] [address] 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 [...] Sign Reading Time Taken Comments Blood Pressure 139/70 06/26/2019 3:55 PM EST Pulse 87 06/26/2019 3:55 PM EST Temperature 36.9 ??C (98.4 ??F) 06/26/2019 3:55 PM ES T Respiratory Rate 16 06/26/2019 3:55 PM EST Oxygen Saturation 97% 06/26/2019 3:55 PM EST Inhaled Oxygen Concentration - - Weight 103.9 kg (229 lb) 06/26/2019 3:55 PM EST with shoes Height - - Body Mass Index 44.72 05/30/2019 3:45 PM EST documented in this encounter Patient Instructions * Patient Instructions* Patsy Shelton MD - 06/26/2019 4:00 PM EST Your exam shows that you are healing nicely from radiotherapy & there is no evidence of cancer. You may continue the opal's cream. You may use a straight/regular razor on your left underarm. You may expose the irradiated area to sun, but it is recommended that you apply sunscreen with an SPF of @ least #45 on the irradiated area prior to exposing it to sun. You may swim in chlorinated water. You may expose irradiated area to hot tub water. We will mail you a letter with an appointment for followup in 6 months, @ which time you will be seen by me or by one of the Radiation Oncology Advanced Practice RNs. Bone scan & CTs without evidence of cancer. Dexascan normal. Please take requisition for blood work to [facility] to check kidney function. If you do not hear from meby tomorrow @ noon, please call [phone] to ask if ok to resume metformin. documented in this encounter Progress Notes * Patsy Shelton MD - 06/26/2019 4:00 PM EST Images from the original note were not included. CC: Sched'd fu s/p xrt completion. 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 S/p 1 cycle docetaxel/cyclophosphamide followed by discontinuation of chemo after infusion rxn to 2nd cycle. 05/30/19 fu w/Dr. Olivera, rx for letrozole, CT c/a/p & bs planned. ROS: Skin w/in irrad'd area healed. No pain. No hand/arm swelling. ROM arms around shoulders ok. Energy level ok. Metformin on hold for recent CTs w/contrast 06/21/19 & asks if she can resume it. Past Medical History: Diagnosis Date ??? Anxiety [...] performed by Anthony Belle MD at [facility] MAIN OR ? ? PRO LAPAROSCOPY W TOT HYSTERECTUTERUS <=250 GRAM W TUBE/OVARY N/A 03/28/2015 LAPAROSCOPY,TOTAL HYST, UTERUS<250GM, EVER TYBE &/OR OVARY, ROBOTIC ASSIST performed by Anthony Belle MD at [facility] MAIN OR Cataract surg OU. Physical Exam Constitutional: She is oriented to person, place, and time. She appears well- developed and well-nourished. No distress. BP 139/70 (Patient Position: Sitting) Pulse 87 Temp 36.9 ??C (98.4 ??F) (Oral) Resp 16 Wt 103.9 kg (229 lb) Comment: with shoes SpO2 97% BMI 44.72 kg/m?? HENT: Head: Normocephalic and atraumatic. Eyes: Conjunctivae and EOM are normal. Right eye exhibits no discharge. Left eye exhibits no discharge. No scleral icterus. Neck: Normal range of motion. Neck supple. No tracheal deviation present. Pulmonary/Chest: Effort normal and breath sounds normal. No stridor. No respiratory distress. She has no wheezes. She has no rales. She exhibits no tenderness. Right breast exhibits no inverted nipple, no mass, no nipple discharge, no skin change and no tenderness. Abdominal: Soft. She exhibits no distension and no mass. There is no tenderness. There is no rebound and no guarding. Musculoskeletal: Normal range of motion. She exhibits no edema, tenderness or deformity. Lymphadenopathy: Head (right side): No submental, no submandibular, no preauricular, no posterior auricular and no occipital adenopathy present. Head (left side): No submental, no submandibular, no preauricular, no posterior auricular and no occipital adenopathy present. She has no cervical adenopathy. She has no axillary adenopathy. Right: No supraclavicular adenopathy present. Left: No supraclavicular adenopathy present. Neurological: She is alert and oriented to person, place, and time. No cranial nerve deficit. She exhibits normal muscle tone. Coordination normal. Skin: Skin is warm and dry. She is not diaphoretic. Psychiatric: She has a normal mood and affect. Her behavior is normal. Judgment and thought contentnormal. Labs: 06/23/19 Cr 1.07 (0.55-1.02) 06/21/19 Cr 1.11 (0.55-1.02) 05/22/19 Cr 1.26 (0.55-1.02) Imagin06/21/19 bone scan: No osseous met. Degenerative changes. 06/21/19 CT c/a/p: No met dz. 06/21/19 Dexascan: Nl A: Healing well from xrt. LIZETH. P: Care of irrad'd skin discussed. R mmg due after 11/02/19, ordered. Rtc 6 mos. Cr today 1.25 (0.55-1.02), ok to resume metformin. documented in this encounter Plan of Treatment Upcoming Encounters Date Type Department Care Team (Late st Contact Info) Description 03/21/2024 2:30 PM EDT Office Visit Hematology/Oncology at [address] [phone] Edgar Carreon MD [facility] HEMATOLOGY [place] [address] Kadie Gaming APRN [facility] [place] [address] 05/15/2024 3:30 PM EST Office Visit Radiation Oncology at [address] [phone] Patsy Shelton MD 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
--- OUTSIDE RECORDS SUMMARY | 2024-02-29 01:29 | XMS_ITS | Encounter Summary ---
Author Organization [facility] Address [facility] [place] [address] Care Team Providers Care Rug Backing Stenciler Name Role Phone Navid Avendaño MD Primary Care Provider [phone] [phone] Encounter Details Date Type Department Care Team (Late st Contact Info) Description 12/23/2020 Orders Only Hematology/Oncology at [address] [phone] Ethel Christianson RN Social History Tobacco Use Types Packs/Day [...] 2:30 PM EDT Office Visit Hematology/Oncology at [address] [phone] Edgar Carreon MD [facility] DR HEMATOLOGY [place] [address] Kadie Gaming APRN [facility] [place] [address] 05/15/2024 3:30 PM EST Office Visit Radiation Oncology at [address] [phone] Patsy Shelton MD [facility] [place] [address] documented as of this encounter Visit Diagnoses Not on filedocumented in this encounter Care Teams Rug Backing Stenciler Relationship Specialty Start Date End Date Navid Avendaño MD [address] [place] [address] PCP - General Family Medicine 01/24/19 documented as of this encounter
--- OUTSIDE RECORDS SUMMARY | 2024-02-29 01:29 | XMS_ITS | Encounter Summary ---
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; retirement current use of aromatase inhibitor Social History [...] Sign Reading Time Taken Comments Blood Pressure 141/61 08/06/2021 2:03 PM EST Pulse 89 08/06/2021 2:03 PM EST Temperature 36.2 ??C (97.1 ??F) 08/06/2021 2:03 PM ES T Respiratory Rate 20 08/06/2021 2:03 PM EST Oxygen Saturation 97% 08/06/2021 2:03 PM EST Inhaled Oxygen Concentration - - Weight 101.6 kg (224 lb) 08/06/2021 2:03 PM EST Height 153 cm (5' 0.24) 08/06/2021 2:03 PM EST Body Mass Index 43.4 08/06/2021 2:03 PM EST documented in this encounter Progress Notes * Ethel Christianson, BUSINESS EMPLOYMENT SPECIALIST - 08/06/2021 2:00 PM EST Images from the original note were not included. 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.gr3, LVI-, marilynn neg, ER+/AZ+, Her2 IHC neg, LN 2/6, DCIS, [id number] (stage IIA) Patient Active Problem List Diagnosis [...] scan was negative for pulmonary embolism. Interval history(08/06/21): Ms. Santizo returns to the [facility] for follow-up of breast cancer. She is currently on letrozole daily which she started on May. She is tolerating the letrozole well. She denies any hot flashes. 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 She denies any dizziness or LOC. Shehad no fractures but she is sore all over. She is going to physical therapy now. She did not get her labs done today because she didn't know she was supposed to get any. She also had surgery on her right hand since we saw her last for carpal tunnel. She said the pain and numbness is gone in her hand now. Denies any cough, shortness of breath, loss of appetite or breast issues. Her main complaint today is stress. Her daughter and grandchild moved to [place] leaving her here alone. Her ex son dagoberto lives next door and does look out for her. She gets depressed being alone. Her sertraline was recently increased. No other focal complaints today. PMH: 2021- Right [...] Medications: Your Medications Accurate as of August 06, 2021 2:11 PM. If you have any questions, ask [...] ?? when to take this Refills: 0 Continued medications, unchanged Dose Details [...] as: Glucophage Twice a day Refills: 0 senna-docusate 8.6-50 mg Tab Commonly [...] Negative for dysuria and difficulty urinating. Musculoskeletal: Pain all over- fell last on the ice Skin: Negative. Cyst removed from mid back. [...] No edema in left arm. Vitals BP 141/61 (Patient Position: Sitting) Pulse 89 Temp 36.2 ??C (97.1 ??F) (Temporal) Resp 20 Ht 153 cm (5' 0.24) Wt 101.6 kg (224 lb) SpO2 97% BMI 43.40 kg/m?? Pathology: Oncotype DX breast recurrence score for my comments and not +1-3: 29 corresponded to distant recurrence risk at 10 years of 23%. With Tamoxifen alone A ??- Outside slide(s) labeled [id number], collection date 11/11/2018. 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 On submitted slides (reviewed) - ER immunoreactivity: Positive (>90% cancer cells with immunostaining) Stain intensity: Intermediate and Strong [place] immunoreactivity: Positive (>90% cancer cells with immunostaining) Stain intensity: Strong HER2 IHC - Per report, 1+/Negative B ??- Outside slide(s) labeled [id number], collection date 12/07/2018. 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 - Ductal carcinoma in-situ (DCIS), high grade with comedonecrosis. - See Synoptic report. B - Lymph node, Arnold #1, left axillary, excision (4 slides labeled B)- - Metastatic carcinoma to one of two lymph nodes. - The anita metastasis measures 1.9 cm. - Extranodal invasion is present. 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 C - Lymph node, left axilla, excision (3 slides labeled C)- - One benign node. D - Lymph node, Arnold #2, left axillary, excision (1 slide labeled D)- - One benign node. E - Lymph node, Arnold #3, left axillary, excision (2 slides labeled [...] Lymph Nodes Examined: ?6 ? Number of Arnold Nodes Examined: ?5 Pathologic Stage Classification (pTNM, AJCC 8th Edition) ?Primary Tumor (Invasive Carcinoma) (pT): ?pT2 ?Regional Lymph Nodes (pN) ? Category (pN): ?? pN1a Labs: 02/04/21- WBC-6.04 Hgb/Hct-10.5/33.4 MCV-87.7 Plt-162 ANC-4.39 Na-142 K+-43. BUN/Cr-20/1.5 Glucose-121 Ca-8.8 T. Bili-0.2 AST-14 ALT-25 Alk phos-101 Albumin-3.7 OozU5H-3.0 Ferritin-215 11/08/20- WBC-6.67 Hgb/Hct-10.5/33.7 Plt-197 ANC-5.02 Na-142 [...] with focal micropapillary features.gr3, LVI-, marilynn neg, ER+/AZ+, Her2 IHC neg, LN 2/6, DCIS, [id number] (stage IIA) Treatment: -12/07/2018 left mastectomy and [...] of disease recurrence. Mammogram will be done this fall.. Last DEXA in 2018 was normal. We can repeat at the end of this year. She will see Dr. Maharaj in April. #Depressed mood: On Zoloft which was recently increased. She follows with primary care Dr. Avendaño. We discussed resources for seniors in her area. Their is a meal site in [place] that would be available to her. She will think about this. #Anemia: She completed 3 doses of Venofer IV in December 2020. Last Ferritin was 215. Hgb was 10.5 MCV 87.7. 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 Myesha did not get her labs done prior to this visit. We gave her the requisitions and she will getthem done sometime next week and call us after she gets them done. Plan: 1. Continue letrozole 2.5mg po daily. 3. Follow up visit in 6 months with CBC,CMP, Ferritin. Myesha voiced understanding of the plan and was given an opportunity to ask questions which I answered to the best of my ability. Myesha understands she can call the clinic between visits with any questions/concerns or new symptoms. Ethel Christianson MSN, BUSINESS EMPLOYMENT SPECIALIST, AOCNP Medical Oncology documented in this encounter Plan of Treatment Upcoming Encounters Date Type Department Care Team (Late st Contact Info) Description 03/21/2024 2:30 PM EDT Office Visit Hematology/Oncology at [address] [phone] Edgar Carreon MD [facility] DR [place] [address] Kadie Gaming APRN [facility] [place] [address] 05/15/2024 3:30 PM EST Office Visit Radiation Oncology at [address] [phone] Patsy Shelton MD [facility] [place] [address] documented as of this encounter Visit Diagnoses Diagnosis 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
--- OUTSIDE RECORDS SUMMARY | 2024-02-29 01:29 | XMS_ITS | Encounter Summary ---
Author Organization [facility] Address [facility] [place] [place] [address] Care Team Providers Care Supervisor Partial Denture Department Name Role Phone Navid Avendaño MD Primary Care Provider [phone] [phone] Encounter Details Date Type Department Care Team (Latest Contact Info) Description 02/16/2023 Travel Social History Tobacco Use Types Packs/Day [...] 2:30 PM EDT Office Visit Hematology/Oncology at [address] [phone] Edgar Carreon MD [facility] HEMATOLOGY [place] [address] Kadie Gaming APRN [facility] [place] [address] 05/15/2024 3:30 PM EST Office Visit Radiation Oncology at [address] [phone] Patsy Shelton MD [facility] [place] [address] documented as of this encounter Visit Diagnoses Not on filedocumented in this encounter Care Teams Supervisor Partial Denture Department Relationship Specialty Start Date End Date Navid Avendaño MD [address] [place] [address] PCP - General Family Medicine 01/24/19 documented as of this encounter
--- OUTSIDE RECORDS SUMMARY | 2024-02-29 01:29 | XMS_ITS | Encounter Summary ---
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 (Primary Dx); intermediate current use of aromatase inhibitor; Asymptomatic menopausal state; Iron deficiency anemia, unspecified iron deficiency anemia [...] Sign Reading Time Taken Comments Blood Pressure 139/67 09/08/2022 2:48 PM EST Pulse 81 09/08/2022 2:48 PM EST Temperature 36.5 ??C (97.7 ??F) 09/08/2022 2:48 PM ES T Respiratory Rate 16 09/08/2022 2:48 PM EST Oxygen Saturation 98% 09/08/2022 2:48 PM EST Inhaled Oxygen Concentration - - Weight 97.5 kg (215 lb) 09/08/2022 2:48 PM EST Height 153 cm (5' 0.24) 09/08/2022 2:48 PM EST Body Mass Index 41.66 09/08/2022 2:48 PM EST documented in this encounter Progress Notes * Edgar Lovett MD - 09/08/2022 2:30 PM EST Images from the original note were not included. 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.gr3, LVI-, marilynn neg, ER+/MA+, Her2 IHC neg, LN 2/6, DCIS, [id number] (stage IIA) Patient Active Problem List Diagnosis [...] scan was negative for pulmonary embolism. Interval history(09/08/22): Ms. Santizo returns to the [facility] for follow-up of breast cancer. She is currently on letrozole daily which she started on May. She is tolerating the letrozole well. She denies any hot flashes. . No [...] hypotension. Medications: Your Medications Accurate as of September 08, 2022 2:56 PM. If you have any questions, ask [...] daily. 100 mg Refills: 0 Daily Multiple Tab Generic drug: multivitamin Refills: 0 furosemide 20 mg Tab Commonly known as: Lasix Refills: 0 gabapentin 300 mg Cap Commonly known as: Neurontin Take 300 mg by mouth nightly. 300 mg Refills: 0 letrozole 2.5 mg Tab Commonly known as: Femara Take 1 tablet by mouth daily. 2.5 mg Quantity: 90 tablet Refills: 2 levothyroxine 88 mcg Tab Commonly known as: Synthroid Take 88 mcg by mouth daily. 88 mcg Refills: 0 lisinopriL 10 mg Tab Commonly known as: Zestril Daily Refills: 0 metFORMIN 500 mg Tab Commonly known as: Glucophage Twice a day Refills: 0 pravastatin 40 mg Tab Commonly known as: PRAVACHOL Take 40 mg by mouth daily. 40 mg Refills: 0 PriLOSEC 20 mg Cpdr 20mg, PO, Once daily Generic drug: omeprazole Refills: 0 senna-docusate 8.6-50 mg Tab Commonly known as: Pericolace Take 1 tablet by mouth daily. 1 tablet Quantity: 60 tablet Refills: 0 sertraline 100 mg Tab Commonly known as: ZOLOFT Take 100 mg by mouth daily. 100 mg Refills: 0 STOPPED Medications cephALEXin 500 mg Cap Commonly known as: Keflex Stopped by: EDGAR LOVETT MD Review of Systems: Constitutional: Negative for fever, [...] No edema in left arm. Vitals BP 139/67 (Patient Position: Sitting) Pulse 81 Temp 36.5 ??C (97.7 ??F) (Temporal) Resp 16 Ht 153 cm (5' 0.24) Wt 97.5 kg (215 lb) SpO2 98% BMI 41.66 kg/m?? Pathology: Oncotype DX breast recurrence score for my comments and not +1-3: 29 corresponded to distant recurrence risk at 10 years of 23%. With Tamoxifen alone A ??- Outside slide(s) labeled [id number], collection date 11/11/2018. 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 On submitted slides (reviewed) - ER immunoreactivity: Positive (>90% cancer cells with immunostaining) Stain intensity: Intermediate and Strong [place] immunoreactivity: Positive (>90% cancer cells with immunostaining) Stain intensity: Strong HER2 IHC - Per report, 1+/Negative B ??- Outside slide(s) labeled [id number], collection date 12/07/2018. 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 - Ductal carcinoma in-situ (DCIS), high grade with comedonecrosis. - See Synoptic report. B - Lymph node, [place] #1, left axillary, excision (4 slides labeled B)- - Metastatic carcinoma to one of two lymph nodes. - The anita metastasis measures 1.9 cm. - Extranodal invasion is present. 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 C - Lymph node, left axilla, excision (3 slides labeled C)- - One benign node. D - Lymph node, [place] #2, left axillary, excision (1 slide labeled D)- - One benign node. E - Lymph node, [place] #3, left axillary, excision (2 slides labeled E)- - Two benign nodes. F - Medial Skin edge, excision (2 slides labeled F) - - Benign skin and subcutis. Specimen ?Procedure: ??Total mastectomy ?Specimen Laterality: ?? Left Tumor ?Histologic Type: ?? Invasive carcinoma of no special type (ductal, not ? otherwise specified) ?Histologic Type Comments: ?? with micropapillary features ?Histologic Grade ([place] Histologic Score) ? Glandular (Acinar) / Tubular [...] Lymph Nodes Examined: ?6 ? Number of [place] Nodes Examined: ?5 Pathologic Stage Classification (pTNM, AJCC 8th Edition) ?Primary Tumor (Invasive Carcinoma) (pT): ?pT2 ?Regional Lymph Nodes (pN) ? Category (pN): ?? pN1a Labs: 09/07/2022 BUN 23, creatinine 1.4, glucose 181, calcium 9.5, TB 0.2, AST 18, ALT 25, albumin 3.9, WBC7.02, hemoglobin 12.1, platelet count 202 03/17/22- WBC-5.78 Hgb/Hct-11.5/35.8 Plt-168 ANC-4.17 Na-139 K+-4.5 BUN/Cr-18/1.3 Glucose-131 Ca-9.3 T. Bili-0.3 AST-20 ALT-34 Alk phos-95 Albumin-3.7 Ferritin-131 02/04/21- WBC-6.04 Hgb/Hct-10.5/33.4 MCV-87.7 Plt-162 ANC-4.39 Na-142 K+-43. BUN/Cr-20/1.5 Glucose-121 Ca-8.8 T. Bili-0.2 AST-14 ALT-25 Alk phos-101 Albumin-3.7 WcjV0B-3.0 Ferritin-215 11/08/20- WBC-6.67 Hgb/Hct-10.5/33.7 Plt-197 ANC-5.02 Na-142 [...] with focal micropapillary features.gr3, LVI-, marilynn neg, ER+/MA+, Her2 IHC neg, LN 2/6, DCIS, [id number] (stage IIA) Treatment: -12/07/2018 left mastectomy and [...] will switch her appointments to annual basis #Depressed mood: On Zoloft. 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
--- OUTSIDE RECORDS SUMMARY | 2024-02-29 01:29 | XMS_ITS | Encounter Summary ---
Author Organization [facility] Address [facility] [place] [address] Care Team Providers Care Receiving Dock Checker Name Role Phone Navid Avendaño MD Primary Care Provider [phone] [phone] Reason for Visit * Reason Onset Date Comments Labs Only 08/26/2021 Encounter Details Date Type Department Care Team (Late Contact Info) Description 08/26/2021 Telephone Hematology/Oncology at [address] [phone] Penny Chew RN Labs Only Social History Tobacco Use Types Packs/Day Years [...] Telephone Encounter - Penny Chew RN - 08/26/2021 9:24 AM EST Reviewed labs from 08/20/[address] Carreon. He states they all looked fine, slightly anemic but ferritin normal , no need for anything to do, she will retunr to clinic in 6 months with more labs. Pt agrees with plan. documented in this encounter Plan of Treatment Upcoming Encounters Date Type Department Care Team (Late Contact Info) Description 03/21/2024 2:30 PM EDT Office Visit Hematology/Oncology at [address] [phone] Edgar Carreon MD [facility] HEMATOLOGY [place] [address] Kadie Gaming APRN [facility] [place] [address] 05/15/2024 3:30 PM EST Office Visit Radiation Oncology at [address] [phone] Patsy Shelton MD [facility] [place] [address] documented as of this encounter Visit Diagnoses Not on filedocumented in this encounter Care Teams Receiving Dock Checker Relationship Specialty Start Date End Date Navid Aevndaño MD [address] [place], [place] [address] PCP - General Family Medicine 01/24/19 documented as of this encounter
--- OUTSIDE RECORDS SUMMARY | 2024-02-29 01:29 | XMS_ITS | Encounter Summary ---
[place] [address] Care Team Providers Care Dobby Looms Pegger Name Role Phone Navid Avendaño MD Primary Care Provider [phone] [phone] Reason for Visit * Reason Comments IV Medication Venofer * Treatment/Therapy Plan Authorization (Routine) - Closed Specialty Diagnoses / Procedures Referred By Contac t Referred To Contact Diagnoses Iron deficiency anemia, unspecified iron deficiency anemia type Ethel Christianson RN Referral ID Status Reason Start Date Expiration Date Visits Re quested Visits Authorized [id number] Closed 11/13/2020 11/13/2021 99 99 Encounter Details Date Type Department Care Team (Late st Contact Info) Description 12/17/2020 1:30 PM EDT Infusion Hematology Oncology at [address] [phone] Iron deficiency anemia, unspecified iron [...] Sign Reading Time Taken Comments Blood Pressure 145/66 12/17/2020 1:30 PM EDT Pulse 83 12/17/2020 1:30 PM EDT Temperature 36.4 ??C (97.5 ??F) 12/17/2020 1:30 PM ED T Respiratory Rate 18 12/17/2020 1:30 PM EDT Oxygen Saturation 98% 12/17/2020 1:30 PM EDT Inhaled Oxygen Concentration - - Weight 104 kg (229 lb 3.2 oz) 12/17/2020 1:30 PM EDT Height - - Body Mass Index 44.39 12/10/2020 1:41 PM EDT documented in this encounter Progress Notes * Delmis Dewey RN - 12/17/2020 1:30 PM EDT INFUSION THERAPY ADMINISTRATION NOTES DIAGNOSIS: Iron Deficiency REASON FOR VISIT: Venofer Week 3 of 4. SUBJECTIVE Myesha offers no complaints. OBJECTIVE LAB DATA: From 11/08/20: ferritin 38 Pre administration: Infusion orders independently verified for drug name, route, and dosage per patient's height, weight and BSA by Delmis Dewey, [facility]. REACTIONS (DESCRIPTION, TIME, INTERVENTION AND EFFECTIVENESS) none ASSESSMENT Myesha was awake, alert and tolerated treatment well. Patient remained in clinic for 30 min post infusion to monitor for reactions. PLAN Return to clinic next week for week 4. documented in this encounter Plan of Treatment Upcoming Encounters Date Type Department Care Team (Late st Contact Info) Description 03/21/2024 2:30 PM EDT Office Visit Hematology/Oncology at [address] [phone] Edgar Carreon MD [facility] DR HEMATOLOGY [place] [address] Kadie Gaming APRN [facility] [place] [address] 05/15/2024 3:30 PM EST Office Visit Radiation Oncology at [address] [phone] Patsy Shelton MD [facility] [place] [address] documented as of this encounter Visit Diagnoses Diagnosis Iron deficiency anemia, unspecified iron deficiency anemia type documented in this encounter Administered Medications Inactive Administered Medications - up to 3 most recent administrations Medication Order MAR Action Action Date Dose Rate Site acetaminophen (Tylenol) tablet 162 mg 975 mg, Oral, ONCE, 1 dose, On 12/17/20 at 1245, Give prior to patient's infusion., Routine Given 12/17/2020 1:42 PM EDT 975 mg diphenhydrAMINE (Benadryl) capsule 25 mg 25 mg, Oral, ONCE, 1 dose, On 12/17/20 at 1245, Give Benadryl 25 mg PO prior to the patient's Venofer infusion., Routine Given 12/17/2020 1:42 PM EDT 25 mg hydrocortisone sod succ (pf) (Solu-CORTEF) (100 mg/2 mL) injection 100 mg 100 mg, Intravenous, ONCE, 1 dose, On 12/17/20 at 1245, Give prior to patient's infusion. Given 12/17/2020 1:45 PM EDT 100 mg iron sucrose (Venofer) 300 mg in sodium chloride 0.9% 115 mL infusion 300 mg, Intravenous, ONCE, 1 dose, On 12/17/20 at 1245, Administer over 90 Minutes, Patients should be closely monitored for signs of hypersensitivity during and for at least 30 min after each administration. The observation period is not needed for patients who have demonstrated tolerability. New Bag 12/17/2020 2:01 PM EDT 300 mg 76.7 mL/hr documented in this encounter Care Teams Dobby Looms Pegger Relationship Specialty Start Date End Date Navid Avendaño MD [address] [place] [address] PCP - General Family Medicine 01/24/19 documented as of this encounter
--- OUTSIDE RECORDS SUMMARY | 2024-02-29 01:29 | XMS_ITS | Encounter Summary ---
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 Social History [...] Sign Reading Time Taken Comments Blood Pressure 143/67 01/09/2020 10:55 AM EDT Pulse 75 01/09/2020 10:55 AM EDT Temperature 36.7 ??C (98.1 ??F) 01/09/2020 10:55 AM E DT Respiratory Rate 20 01/09/2020 10:55 AM EDT Oxygen Saturation 99% 01/09/2020 10:55 AM EDT Inhaled Oxygen Concentration - - Weight 103 kg (227 lb) 01/09/2020 10:55 AM EDT Height 152.4 cm (5') 01/09/2020 10:55 AM EDT endoscopy technician ied Body Mass Index 44.33 01/09/2020 10:55 AM EDT documented in this encounter Progress Notes * Ethel Christianson, BI ARCHITECT - 01/09/2020 11:00 AM EDT Images from the original note were not included. 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 Santizo returns to the [facility] for follow-up of breast cancer. She is currently on Letrozole daily which she started on May. She is tolerating it well. She has occasional hot flashes and she has arthralgias. She completed adjuvant radiation on . Complains of the pain in the knees right more than left but it is longstanding problem. She hada TKR on the right in September 2019. She is planning on having the left one done in April. She also had a large cyst removed from her back this spring and the scar is healing well. Her mood is slowly improving and she is starting to get out more. She denies any cough, shortness of breath, loss of appetite or new lumps or bumps. She still has tenderness in the left chest at her surgical site and some swelling in the upper left arm. She is taking iron orally daily. PMH: Arthritis, depression September 2019- Right TKR Spring [...] ??? Squamous cell skin cancer Social History: Non-smoker drinks alcohol occasionally, she is retired, lives by herself. Family History: No interval changes since last visit Grandfather had colon cancer, 2 maternal aunt had breast cancer OBGYN History: Postmenopausal Allergies: Allergies Allergen Reactions ??? Atorvastatin Calcium CIS - myalgias ??? Docetaxel Syncope, 02 desaturation, tachycardia, hypotension. Medications: Your Medications Accurate as of January 09, 2020 11:09 AM. If you have any questions, ask [...] for dysuria and difficulty urinating. Musculoskeletal: Pain in knees- s/p right TKR Skin: Negative. Cyst removed from mid back. [...] no adenopathy, thyroid: not enlarged, symmetric, no tenderness/mass/nodules Back: Symmetric, no curvature, ROM normal, no CVA tenderness Lungs: Clear to auscultation bilaterally, respirations unlabored Chest Wall: Right breast normal in appearance. No masses on palpation. No right axillary adenopathy. No nipple inversion, drainage or skin dimpling. Left breast is absent. Well healed scar. No masseson palpation to chest wall. No left axillary adenopathy. Mild edema to left upper arm. Heart: Regular rate and rhythm, S1, S2 normal, no murmur, rub or gallop Abdomen: Soft, non-tender, bowel sounds active all four quadrants, no masses, no organomegaly. There is no appreciable ascites Extremities: Bilateral LE edema.1+ Pulses: 2+ and symmetric Skin: Skin color, texture, turgor normal, no rashes or lesions Lymph nodes: Cervical, supraclavicular, and axillary nodes normal Neurologic: Normal Vitals BP 143/67 (Patient Position: Sitting) Pulse 75 Temp 36.7 ??C (98.1 ??F) (Temporal) Resp 20 Ht 152.4 cm (5') Comment: copied Wt 103 kg (227 lb) SpO2 99% BMI 44.33 kg/m?? Pathology: Oncotype DX breast recurrence score for my comments and not +1-3: 29 corresponded to distant recurrence risk at 9 years of 23%. With Tamoxifen alone A ??- Outside slide(s) labeled [id number], collection date 11/11/2018. Breast, left, core needle [...] report, 1+/Negative B ??- Outside slide(s) labeled [id number], collection date 12/07/2018. 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 - Ductal carcinoma in-situ (DCIS), high grade with comedonecrosis. - See Synoptic report. B - Lymph node, [place] #1, left axillary, excision (4 slides labeled B)- - Metastatic carcinoma to one of two lymph nodes. - The anita metastasis measures 1.9 cm. - Extranodal invasion is present. 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 C - Lymph node, left axilla, excision (3 slides labeled C)- - One benign node. D - Lymph node, [place] #2, left axillary, excision (1 slide labeled D)- - One benign node. E - Lymph node, [place] #3, left axillary, excision (2 slides labeled [...] Lymph Nodes Examined: ?6 ? Number of [place] Nodes Examined: ?5 Pathologic Stage Classification (pTNM, AJCC 8th Edition) ?Primary Tumor (Invasive Carcinoma) (pT): ?pT2 ?Regional Lymph Nodes (pN) ? Category (pN): ?? pN1a Labs: 12/21/19-WBC-6.39 Hgb/Hct-10.1/31.8 MCV-85.0 Plt-226 ANC-5.07 Retic count-1.5 [...] ER+/MA+, Her2 IHC neg, LN 2/6, DCIS, [id number] (stage IIA) Treatment: -12/07/2018 left mastectomy and [...] disease. She started letrozole on May [id number]. She continues on letrozole daily. She is tolerating the therapy well with minimal side effects. Her main complaint is fatigue which is multifactoral. She has anemia and depression. Depression is improving on Zoloft. #DEXA: Normal #Depressed mood: On Zoloft, will follow with primary care Dr. Avendaño on coming Wednesday #Anemia: Mild- she does complain of fatigue. Ferritin-35. She is taking oral iron. Remainder of labworkup was negative. 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 MCV is 85.0. It is unclear how much oral iron she is taking. Will have her take ferrous sulfate 325 mg po daily and repeat her ferritin in 3 months. If no improvement she may need IV iron. Plan: 1. Continue breast cancer follow up visits every 3 months. Continue letrozole 2.5 mg daily 2. She has follow ups with her PCP and Dr. Maharaj in next 2 months. 3. CBC,CMP,ferritin 4. Continue ferrous sulfate 325mg po daily 4. Follow up visit in 3 months with labs and CBE. 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
--- OUTSIDE RECORDS SUMMARY | 2024-02-29 01:29 | XMS_ITS | Encounter Summary ---
[place] [address] Care Team Providers Care Cellular Biologist Name Role Phone Navid Avendaño MD Primary Care Provider [phone] [phone] Reason for Visit * Reason Comments IV Medication IV sucrose * Treatment/Therapy Plan Authorization (Routine) - Closed Specialty Diagnoses / Procedures Referred By Contac t Referred To Contact Diagnoses Iron deficiency anemia, unspecified iron deficiency anemia type Ethel Christianson RN Referral ID Status Reason Start Date Expiration Date Visits Re quested Visits Authorized [id number] Closed 11/13/2020 11/13/2021 99 99 Encounter Details Date Type Department Care Team (Late st Contact Info) Description 12/10/2020 1:30 PM EDT Infusion Hematology Oncology at [address] [phone] Iron deficiency anemia, unspecified iron [...] Sign Reading Time Taken Comments Blood Pressure 146/53 12/10/2020 1:41 PM EDT Pulse 85 12/10/2020 1:41 PM EDT Temperature 36.5 ??C (97.7 ??F) 12/10/2020 1:41 PM ED T Respiratory Rate 22 12/10/2020 1:41 PM EDT Oxygen Saturation 98% 12/10/2020 1:41 PM EDT Inhaled Oxygen Concentration - - Weight 104.1 kg (229 lb 6.4 oz) 12/10/2020 1:41 PM EDT Height 153 cm (5' 0.25) 12/10/2020 1:41 PM EDT Body Mass Index 44.43 12/10/2020 1:41 PM EDT documented in this encounter Progress Notes * Candice Lozano RN - 12/10/2020 1:30 PM EDT INFUSION THERAPY ADMINISTRATION NOTES DIAGNOSIS: Iron Deficiency Anemia REASON FOR VISIT: Venofer Week 2 of 4. SUBJECTIVE Myesha offers no complaints. OBJECTIVE LAB DATA: From 11/08/20: ferritin 38 Pre administration: Infusion orders independently verified for drug name, route, and dosage per patient's height, weight and BSA by Candice Lozano RN and Staff Pharmacist(s). REACTIONS (DESCRIPTION, TIME, INTERVENTION AND EFFECTIVENESS) none ASSESSMENT Myesha was awake, alert and tolerated treatment well. PIV discontinued prior to dismissal. Patient remained in clinic for 30 min post infusion to monitor for reactions. PLAN Return to clinic next week for week 3. documented in this encounter Plan of Treatment Upcoming Encounters Date Type Department Care Team (Late st Contact Info) Description 03/21/2024 2:30 PM EDT Office Visit Hematology/Oncology at [address] [phone] Edgar Carreon MD [facility] DR HEMATOLOGY [place] [address] Kadie Gaming APRN [facility] [place] [address] 05/15/2024 3:30 PM EST Office Visit Radiation Oncology at [address] [phone] Patsy Shelton MD [facility] [place] [address] documented as of this encounter Visit Diagnoses Diagnosis Iron deficiency anemia, unspecified iron deficiency anemia type documented in this encounter Administered Medications Inactive Administered Medications - up to 3 most recent administrations Medication Order MAR Action Action Date Dose Rate Site acetaminophen (Tylenol) tablet 975 mg 975 mg, Oral, ONCE, 1 dose, On Wed12/10/20 at 1400, Give prior to patient's infusion., Routine Given 12/10/2020 2:09 PM EDT 975 mg diphenhydrAMINE (Benadryl) capsule 25 mg 25 mg, Oral, ONCE, 1 dose, On Wed12/10/20 at 1400, Give Benadryl 25 mg PO prior to the patient's Venofer infusion., Routine Given 12/10/2020 2:09 PM EDT 25 mg hydrocortisone sod succ (pf) (Solu-CORTEF) (100 mg/2 mL) injection 100 mg 100 mg, Intravenous, ONCE, 1 dose, On Wed12/10/20 at 1400, Give prior to patient's infusion. Given 12/10/2020 2:09 PM EDT 100 mg iron sucrose (Venofer) 300 mg in sodium chloride 0.9% 115 mL infusion 300 mg, Intravenous, ONCE, 1 dose, On Wed12/10/20 at 1400, Administer over 90 Minutes, Patients should be closely monitored for signs of hypersensitivity during and for at least 30 min after each administration. The observation period is not needed for patients who have demonstrated tolerability. New Bag 12/10/2020 2:34 PM EDT 300 mg 76.7 mL/hr documented in this encounter Care Teams Cellular Biologist Relationship Specialty Start Date End Date Navid Avendaño MD [address] [place] [address] [address] [facility] [place] [address] PCP - General Family Medicine 01/24/19 documented as of this encounter
--- OUTSIDE RECORDS SUMMARY | 2024-02-29 01:29 | XMS_ITS | Encounter Summary ---
Author Organization [facility] Address [facility] [address] [place] [address] Care Team Providers Care Returned Goods Sorter Name Role Phone Navid Avendaño MD Primary Care Provider [phone] [phone] Reason for Visit * Reason Comments Medication Refill Encounter Details Date Type Department Care Team (Late Contact Info) Description 06/10/2021 Refill Hematology/Oncology at [address] [phone] [facility] HEMATOLOGY [place] [address] 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 [...] PM EDT Office Visit Hematology/Oncology at [address] [phone] [facility] HEMATOLOGY [place] [address] [facility] [place] [address] 05/15/2024 3:30 PM EST Office Visit Radiation Oncology at [address] [phone] 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
--- OUTSIDE RECORDS SUMMARY | 2024-02-29 01:30 | XMS_ITS | Encounter Summary ---
Author Organization [facility] Address [facility] [place] [address] Care Team Providers Care Recycling Attendant Name Role Phone Navid Avendaño MD Primary Care Provider [phone] Reason for Visit * Reason Comments Chemotherapy Cycle 1, Day 1 Docet ramila + Cyclophosphamide Injections Neulasta OnPRO * Treatment/Therapy Plan Authorization (Routine) - Closed Specialty Diagnoses / Procedures Referred By Contac t Referred To Contact Diagnoses Breast cancer, stage 2, left Procedures TC PALONOSETRON HCL, 25MCG, INJECTION (ALOXI) TC CYCLOPHOSPHAMIDE, 100MG (CYTOXAN) TC DOCETAXEL, 1MG, INJECTION TC PEGFILGRASTIM, 6MG, INJECTION Edgar Carreon MD [facility] HEMATOLOGY AND [place] [address] [facility] Hem Onc Office [address] [place] [phone] Referral ID Status Reason Start Date Expiration Date Visits Re quested Visits Authorized [id number] Closed 02/03/2019 02/03/2020 6 6 Encounter Details Date Type Department Care Team (Late st Contact Info) Description 02/21/2019 11:30 AM EDT Infusion Hematology Oncology at [address] [phone] Endometrial adenocarcinoma; Breast cancer, stage 2, left Social History [...] as of this encounter Progress Notes * Patel Berumen RN - 02/21/2019 11:30 AM EDT INFUSION THERAPY ADMINISTRATION NOTES DIAGNOSIS: Endometrial Cancer CYCLE #1: Day 1 REASON FOR VISIT: Docetaxel + Cyclophosphamide + Neulata OnPRO SUBJECTIVE Myesha Santizo reports she is anxious. OBJECTIVE LAB DATA: Reviewed with Monika Rossi APRN in clinic and WNL for treatment today. IV ACCESS: PIV #24 in right FA (discussed a port but Pt getting 4 cycles only according to current POC so wants to try to go without). Pre administration: Chemotherapy orders independently verified for drug name, route, and dosage per patient's height, weight and BSA by Patel Berumen RN & on-site pharmacist. REACTIONS (DESCRIPTION, TIME, INTERVENTION AND EFFECTIVENESS) none ASSESSMENT Myesha Santizo was awake, alert and tolerated treatment well. Neulasta OnPRO applied to left arm per Pt request. Side effects of Neulasta discussed and Pt aware of when it is okay to remove NeulastaOnPRO, at approximately 1910 tomorrow. PLAN Return to clinic per routine. Pt. chemo teaching instructions included: During clinic hours (8am-5pm Wednesday-Wednesday): pt. can call [phone] with questions or concerns. After clinic hours (5pm-8am Wednesday-Wednesday and weekends) pt can call [phone] and ask for the health and wellness advisor/oncologist solution developer. Myesha Santizo verbalized understanding of potential chemotherapy side effects and home care including but not limited to- handwashing to prevent infection, signs and symptoms of low blood counts (fever, fatigue, bleeding), to call with a fever of 100.4 or greater, any significant constipation/diarrhea, importance of nutrition and fluid intake (drinking at least 32-64 ounces of non-caffeinated beverages/day), mouth care. Myesha Santizo verbalized understanding of how to take prescription medications given for home useafter chemotherapy. documented in this encounter Plan of Treatment Upcoming Encounters Date Type Department Care Team (Late st Contact Info) Description 03/21/2024 2:30 PM EDT Office Visit Hematology/Oncology at [address] [phone] Egdar Carreon MD [facility] DR HEMATOLOGY AND [place] [address] Kadie Gaming APRN [facility] DR MEDICAL [place] [address] 05/15/2024 3:30 PM EST Office Visit Radiation Oncology at [address] [phone] Patsy Shelton MD [facility] DR RADIATION [place] [address] documented as of this encounter Visit Diagnoses Diagnosis Endometrial adenocarcinoma Malignant neoplasm of corpus uteri, except isthmus Breast cancer, stage 2, left documented in this encounter Administered Medications Inactive Administered Medications - up to 3 most recent administrations Medication Order MAR Action Action Date Dose Rate Site cyclophosphamide (CYTOXAN) 1,272 mg in sodium chloride 0.9% 313.6 mL chemo infusion 1,272 mg (600 mg/m2/dose ? 2.12 m2 Treatment Plan BSA from Recorded weight), Intravenous, ONCE, 1 dose, On Wed02/21/19 at 1315, Administer over 30 Minutes, Warning Vesicant/Irritant Medication New Bag 02/21/2019 2:56 PM EDT 1,272 mg 627 mL/hr dexamethasone (DECADRON) injection 10 mg 10 mg, Intravenous, ONCE, 1 dose, On Wed02/21/19 at 1215, Administer 60 minutes prior to DOCEtaxel Given 02/21/2019 12:32 PM EDT 10 mg diphenhydrAMINE (BENADRYL) capsule 50 mg 50 mg, Oral, ONCE, 1 dose, On Wed02/21/19 at 1215, Administer 60 minutes prior to DOCEtaxel, Routine Given 02/21/2019 12:27 PM EDT 50 mg DOCEtaxel (TAXOTERE) 160 mg in sodium chloride 0.9% Non-PVC 258 mL chemo infusion 160 mg, Intravenous, ONCE, 1 dose, On Wed02/21/19 at 1315, Administer over 60 Minutes, Warning Vesicant/Irritant Medication , Dose Ordered = 159 mg (75 mg/m2). Pharmacist rounded dose per procedure. New Bag 02/21/2019 1:38 PM EDT 160 mg 258 mL/hr famotidine (PEPCID) injection 20 mg 20 mg, Intravenous, ONCE, 1 dose, On Wed02/21/19 at 1215, Administer 60 minutes prior to DOCEtaxel Given 02/21/2019 12:30 PM EDT 20 mg LORazepam (ATIVAN) tablet 0.5 mg 0.5 mg, Oral, ONCE, 1 dose, On Wed02/21/19 at 1215, Administer prior to chemotherapy, Routine Given 02/21/2019 12:27 PM EDT 0.5 mg palonosetron (ALOXI) injection 0.25 mg 0.25 mg, Intravenous, ONCE, 1 dose, On Wed02/21/19 at 1215, Administer over 30 seconds. Administer prior to chemotherapy., Routine Given 02/21/2019 12:28 PM EDT 0.25 mg pegfilgrastim (NEULASTA ONPRO) injection kit 6 mg, Subcutaneous, ONCE, 1 dose, On Wed02/21/19 at 1215, Allow the prefilled syringe co-packaged with the on-body injector to reach room temperature at least 30 minutes prior to administration., Routine, This agent is restricted to outpatient use. Is this drug being given as an outpatient? Yes Given 02/21/2019 3:10 PM EDT 6 mg Left Arm documented in this encounter Care Teams Recycling Attendant Relationship Specialty Start Date End Date Navid Avendaño MD [address] [place] [address] PCP - General Family Medicine 01/24/19 documented as of this encounter
--- OUTSIDE RECORDS SUMMARY | 2024-02-29 01:30 | XMS_ITS | Encounter Summary ---
Author Organization [facility] Address [facility] [place] [address] Care Team Providers Care Chemical Instrumentation Officer Name Role Phone Navid Avendaño MD Primary Care Provider [phone] Reason for Visit * Reason Onset Date Comments Other 01/25/2019 oncotype dx Encounter Details Date Type Department Care Team (Late Contact Info) Description 01/25/2019 Telephone Hematology/Oncology at [address] [phone] Penny Chew RN Other (oncotype dx) Social History Tobacco Use Types Packs/Day Years [...] Telephone Encounter - Penny Chew RN - 01/26/2019 9:24 AM EDT Oncotype Dx requisition sent in online per Dr. Carreon, specimen retrieval from [facility]) and [place] requested to be done through onc type dx services. Online confirmation received and results should be back in two weeks. documented in this encounter Plan of Treatment Upcoming Encounters Date Type Department Care Team (Late st Contact Info) Description 03/21/2024 2:30 PM EDT Office Visit Hematology/Oncology at [address] [phone] Edgar Carreon MD [facility] [place] [address] Kadie Gaming APRN [facility] [place] [address] 05/15/2024 3:30 PM EST Office Visit Radiation Oncology at [address] [phone] Patsy Shelton MD [facility] [address] documented as of this encounter Visit Diagnoses Not on filedocumented in this encounter Care Teams Chemical Instrumentation Officer Relationship Specialty Start Date End Date Navid Avendaño MD [address] [place] [address] PCP - General Family Medicine 01/24/19 documented as of this encounter
--- OUTSIDE RECORDS SUMMARY | 2024-02-29 01:30 | XMS_ITS | Encounter Summary ---
Author Organization [facility] Address [facility] [place] [place] [address] Care Team Providers Care Woolen Tester Name Role Phone Navid Avendaño MD Primary Care Provider [phone] Reason for Referral * Consultation (Routine) - Closed Specialty Diagnoses / Procedures Referred By Moses damian Referred To Contact Radiation Oncology Diagnoses Breast cancer, stage 2, left Edgar Carreon MD [facility] DR HEMATOLOGY [place] [address] [facility] Rad Onc Treatment [address] [place] [phone] Referral ID Status Reason Start Date Expiration Date V isits Requested Visits Authorized [id number] Closed Consult, Test & Treat 02/03/2019 02/03/2020 1 1 Reason for Visit * Consultation (Routine) - Closed Specialty Diagnoses / Procedures Referred By Moses damian Referred To Contact Hematology and Oncology Diagnoses Breast cancer BREAST CANCER Procedures TREATMENT OPTIONS Kelli Bedolla MD [address] [place] [address] St Hem Onc Office [address] [place] [phone] Referral ID Status Reason Start Date Expiration Date Visits Re quested Visits Authorized [id number] Closed 12/19/2018 12/19/2019 1 1 Encounter Details Date Type Department Care Team (Late st Contact Info) Description 01/24/2019 4:00 PM EDT Office Visit Hematology/Oncology at [address] [phone] Edgar Carreon MD [facility] [place] [address] Endometrial adenocarcinoma; Breast cancer, stage 2, left; 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 [...] Sign Reading Time Taken Comments Blood Pressure 135/65 01/24/2019 4:26 PM EDT Pulse 93 01/24/2019 4:26 PM EDT Temperature 37.5 ??C (99.5 ??F) 01/24/2019 4:26 PM ED T Respiratory Rate 16 01/24/2019 4:26 PM EDT Oxygen Saturation 96% 01/24/2019 4:26 PM EDT Inhaled Oxygen Concentration - - Weight 106.6 kg (235 lb) 01/24/2019 4:26 PM EDT Height 152.4 cm (5') 01/24/2019 4:26 PM EDT Body Mass Index 45.9 01/24/2019 4:26 PM EDT documented in this encounter Progress Notes * Penny Chew RN - 01/24/2019 4:00 PM EDT MEDICAL ONCOLOGY INITIAL NURSING ASSESSMENT ADVANCE DIRECTIVES: In EDH [ ] Has documents [ x ] Will bring in [x ] IF NO: Advance Directive pamphlet provided : Referral to Care Management : PRESENTING SYSTEMS and PATHOLOGY: area near nipple kept getting bigger so ultra sound was ordered REVIEW OF SYSTEMS: see Dr. carreon's note Prior Radiotherapy: no[x ] Yes[ ]Site Date Facility Prior Chemotherapy: no[ x ] Yes[ ] Drug: Oncologist- Balance difficulty: [ ]no [x ]yes At risk for fall: [ ] no [ x ] yes If yes, actions implemented to prevent fall. Patient/family instructed to avoid independent ambulation. Use wheelchair and ask for assistance of staff while in the clinic. ADL [ x ] no limits [ ] needs dressing assistance [ ] needs meal assistance Assistive device:[ ]none [ x ]cane [ ]walker [ ]wheelchair [ ]other: explain PAIN ASSESSMENT: [ 0 ] out of 10 Location: Description: [ ] Dull [ ] Sharp [ ] Burning [ ] Throbbing [ ] Radiating [ ] Continuous [ ]Intermittent Aggravating Factors: [ ] Movement [ ] Position [ ]Immobility [ ]Other Alleviating Factors: [ ]Medication [ ] Positioning [ ] Other Current Pain Management Plan: [ ]Satisfied [ ] Not satisfied SOCIAL ASSESSMENT: See ED social assessment information entered. Support Systems: lives alone, daughter lives next door Ben [place] of [employer] transportation plan: [x ]private vehicle [ ] RCT needs Social Work referral [ ] Unknown at this time needs Social Work referral Barriers to treatment: none at this time Referrals/Interventions: LEARNING STYLE: Visual and verbal, wants written material and verbal discussion. TEACHING: __ NCI ???Chemotherapy and You?? and folder given __ Specific chemotherapy literature provided and reviewed with patient * Edgar Carreon MD - 01/24/2019 4:00 PM EDT Images from the original note were not included. 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 Bedolla for [...] on December 07, 2018. Postop coursewas uneventful. PMH: Cataract, hypertension, hyperlipidemia, Avila's esophagus, hypothyroidism, obesity, squamouscell skin cancer, endometrial cancer in 2006 diverticulosis, anxiety Past Medical History: Diagnosis Date ??? Anxiety ??? Avila esophagus ??? Hx of adenomatous polyp of colon ??? Hyperlipidemia ??? Hypertension ??? Hypothyroid ??? Hypothyroid ??? Squamous cell skin cancer Patient Active Problem List Diagnosis ??? Endometrial adenocarcinoma ??? Morbid obesity with [...] file Gets together: Not on file Attends hoahaoism service: Not on file Active member of [...] Narrative ??? Not on file Family History: Grandfather had colon cancer, 2 maternal aunt had breast cancer OBGYN History: Postmenopausal Allergies: Allergies Allergen Reactions ??? Atorvastatin Calcium CIS - myalgias Medications: Your Medications Accurate as of 01/24/19 11:59 PM. If you have any questions, ask your nurse or doctor. Continued medications with new dosing Dose Details PriLOSEC 20 mg Cpdr 20mg, PO, Once daily Generic drug: omeprazole What changed: ?? how much to take ?? how to take this ?? when to take this Refills: 0 Continued medications, unchanged Dose Details acetaminophen 500 mg Tab Commonly known as: TYLENOL As needed Refills: 0 aspirin 81 mg Tbec every other day. Daily Refills: 0 CALCIUM MAGNESIUM 500 mg calcium -250 mg Tab Take by mouth. Generic drug: Ca carb-Ca gluc-Mg ox-Mg gluco Refills: 0 cholecalciferol (Vitamin D3) 2,000 unit Cap Take by mouth daily. Generic drug: cholecalciferol (Vitamin D3) Refills: 0 DAILY MULTIPLE Tab Generic drug: multivitamin Refills: 0 ibuprofen 600 mg Tab Commonly known as: ADVIL;MOTRIN Take 1 tablet by mouth every 6 hours as needed for Pain. 600 mg Quantity: 30 tablet Refills: 0 lisinopril 10 mg Tab Commonly known as: PRINIVIL;ZESTRIL Daily Refills: 0 LORazepam 1 mg Tab Commonly known as: ATIVAN nightly as needed. Once Refills: 0 metFORMIN 500 mg Tab Commonly known as: GLUCOPHAGE Twice a day Refills: 0 pravastatin 20 mg Tab Commonly known as: PRAVACHOL Refills: 0 senna-docusate 8.6-50 mg Tab Commonly known as: PERICOLACE Take 1 tablet by mouth daily. 1 tablet Quantity: 60 tablet Refills: 0 sertraline 50 mg Tab Commonly known as: ZOLOFT Daily Refills: 0 SYNTHROID 75 mcg Tab 75mcg, PO, Once daily [...] to auscultation bilaterally, respirations unlabored Chest Wall: Left well-healed surgical incision, no palpable masses or lumps in the right breast Heart: Regular rate and rhythm, S1, S2 [...] axillary nodes normal Neurologic: Normal Vitals BP 135/65 (Patient Position: Sitting) Pulse 93 Temp 37.5 ??C (99.5 ??F) (Oral) Resp 16 Ht 152.4 cm (5') Wt 106.6 kg (235 lb) SpO2 96% BMI 45.90 kg/m?? Pathology: A ??- Outside slide(s) labeled [id number], collection date 11/11/2018. 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 On submitted slides (reviewed) - ER immunoreactivity: Positive (>90% cancer cells with immunostaining) Stain intensity: Intermediate and Strong VT immunoreactivity: Positive (>90% cancer cells with immunostaining) Stain intensity: Strong HER2 IHC - Per report, 1+/Negative B ??- Outside slide(s) labeled [id number], collection date 12/07/2018. 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 - Ductal carcinoma in-situ (DCIS), high grade with comedonecrosis. - See Synoptic report. B - Lymph node, [place] #1, left axillary, excision (4 slides labeled B)- - Metastatic carcinoma to one of two lymph nodes. - The anita metastasis measures 1.9 cm. - Extranodal invasion is present. 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 C - Lymph node, left axilla, excision (3 slides labeled C)- - One benign node. D - Lymph node, [place] #2, left axillary, excision (1 slide labeled D)- - One benign node. E - Lymph node, [place] #3, left axillary, excision (2 slides labeled E)- - Two benign nodes. F - Medial Skin edge, excision (2 slides labeled F) - - Benign skin and subcutis. Specimen ?Procedure: ??Total mastectomy ?Specimen Laterality: ?? Left Tumor ?Histologic Type: ?? Invasive carcinoma of no special type (ductal, not ? otherwise specified) ?Histologic Type Comments: ?? with micropapillary features ?Histologic Grade (Odin Histologic Score) ? Glandular (Acinar) / Tubular [...] Lymph Nodes Examined: ?6 ? Number of [place] Nodes Examined: ?5 Pathologic Stage Classification (pTNM, AJCC 8th Edition) ?Primary Tumor (Invasive Carcinoma) (pT): ?pT2 ?Regional Lymph Nodes (pN) ? Category (pN): ?? 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 Santizo has new diagnosis of breast cancer with 2 lymph nodes positive for carcinoma one is macromet and the other one - isolated cancer cells. Based on Cancermath.net calculator she has 31.5% 15-year cancer related mortality with no adjuvant treatment. With 4 cycles of TC chemotherapy 15-year cancer related mortality is 23.3%. We are sending off aromatase inhibitors to treatment regimen here 15-year cancer related mortality is 15.9%. We talked about chemotherapy TC and AC-T regimen. She worries about side effects of chemotherapy and how can affect her diabetes and quality of life, but she is willing to be treated with schema if it would be beneficial as she concerned about cancer recurrence as well. She said that she would avoid chemotherapy if it does not very helpful. I discussed Oncotype DX testing for lymph node positive disease. The reason for oncotype dx test will be benefits of chemotherapy. Treatment plan will be determined based on Oncotype DX score if Oncotype DX score is above 18 for cycle of chemotherapy will be recommended. If Oncotype DX score below 18 she will proceed with radiation followed by hormonal therapy with aromatase inhibitors for 5-10 years. She is interested to proceed. I explained that if her Oncotype DX testing shows score is above 18 I will recommend chemotherapy particularly 4 cycles of docetaxel and cyclophosphamide with Neulasta support. We discussed side effects of chemotherapy which include but not limited to nausea, vomiting, allergic reaction, fluid retention, low blood counts, peripheral neuropathy, pain/numbness/tingling in extremities, decompensation of diabetes, low blood counts requiring transfusion, infection including life-threatening infection and secondary malignancy. All questions were answered to patient's satisfaction. She is interestedto proceed with fourth cycle of docetaxel and cyclophosphamide. Informed verbal consent was obtained. I will obtain her CBC and CMP. We will send her specimen for Oncotype DX testing. I plan to see sofya on February 21 with first cycle of chemotherapy. We will refer her to our radiation oncology for consultation. Plan 1. Oncotype DX test 2. CBC and CMP 3. Referral to radiation oncology 4. Next appointment on February 21 with first cycle of docetaxel and cyclophosphamide documented in this encounter Plan of Treatment Upcoming Encounters Date Type Department Care Team (Late st Contact Info) Description 03/21/2024 2:30 PM EDT Office Visit Hematology/Oncology at [address] [phone] Edgar Carreon MD [facility] HEMATOLOGY [place] [address] Kadie Gaming APRN [facility] [place] [address] 05/15/2024 3:30 PM EST Office Visit Radiation Oncology at [address] [phone] Patsy Shelton MD [facility] [place] [address] Scheduled Referrals Name Type Priority Associated Diagnoses Orde r Schedule Referral to Radiation Oncology Outpatient Referral Routine Breast cancer, stage 2, left Ordered: 02/03/2019 documented as of this encounter Procedures Procedure Name Priority Date/Time Associated Diagnosis Comments GENETIC STUDY SCAN 02/01/2019 12 :00 AM EDT documented in this encounter Results * SCAN DOC: GENETIC STUDY (02/01/2019 12:00 AM EDT) Narrative 02/01/2019 12:00 AM EDT Ordered by an unspecified provider. Scanning Provider MEDIA MGR SCAN EXT O RDR/RSLT documented in this encounter Visit Diagnoses Diagnosis Endometrial adenocarcinoma Malignant neoplasm of corpus uteri, except isthmus Breast cancer, stage 2, left 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 documented in this encounter Care Teams Woolen Tester Relationship Specialty Start Date End Date Navid Avendaño MD [address] [place] [address] PCP - General Family Medicine 01/24/19 documented as of this encounter
--- OUTSIDE RECORDS SUMMARY | 2024-02-29 01:30 | XMS_ITS | Encounter Summary ---
Author Organization [facility] [address] [place] [address] Care Team Providers Care Sales Operations Associate Name Role Phone Navid Avendaño MD Primary Care Provider [phone] Reason for Visit * Reason Onset Date Comments Diarrhea 03/09/2019 Encounter Details Date Type Department Care Team (Late st Contact Info) Description 03/09/2019 Telephone Hematology/Oncology at [address] [phone] Penny Chew RN Diarrhea Social History Tobacco Use Types Packs/Day Years [...] Telephone Encounter - Penny Chew RN - 03/09/2019 10:45 AM EDT Pt is stating she is having on and off diarrhea for last couple of weeks. Yesterday she was in store and had accident and is wondering if she can take imodium for the diarrhea? She states while at store she moved bowels normal in store bathroom. Then at register they let loose in her underwear. When she got home and cleaned up her stomach felt unsettled. She took some compazine and that helped. Her appetite was very low yesterday evening she ate some sandwich that was all. She does have chills at times. She has not taken temperature as her thermometer does not work. I asked that the next timeshe is out to buy one. I told her I would discuss with Monika Rossi to see if she can use imodium and I would call her back. She agrees with plan. Pat said pt could take imodium following package directions, she should be careful not to get constipated. Reviewed this with pt and explained she should not take first thing in morning before she moves her bowels. Pt agrees and states she will only be taking it when she goes [place] to [place] tomorrowand if her stools get loose she does not want an accident on way home so she would take one then. Pt noted that she did get her thermometer working and temp was 97.8F. She will call with any further questions or concerns. documented in this encounter Plan of Treatment Upcoming Encounters Date Type Department Care Team (Late st Contact Info) Description 03/21/2024 2:30 PM EDT Office Visit Hematology/Oncology at [address] [phone] Edgar Carreon MD [facility] [address] [place] [address] Kadie Gaming APRN [facility] [place] [address] 05/15/2024 3:30 PM EST Office Visit Radiation Oncology at [address] [phone] Patsy Shelton MD [facility] [place] [address] documented as of this encounter Visit Diagnoses Not on filedocumented in this encounter Care Teams Sales Operations Associate Relationship Specialty Start Date End Date Navid Avendaño MD [address] [place] [address] [address] [place] [address] PCP - General Family Medicine 01/24/19 documented as of this encounter
--- OUTSIDE RECORDS SUMMARY | 2024-02-29 01:30 | XMS_ITS | Encounter Summary ---
Author Organization [facility] Address [facility] [place] [address] [place] [address] Care Team Providers Care Colliery Clerk Name Role Phone Navid Avendaño MD Primary Care Provider [phone] Encounter Details Date Type Department Care Team (Late st Contact Info) Description 02/07/2019 Telephone Radiation Oncology at [address] [phone] Tram Grimes Social History Tobacco Use Types Packs/Day Years [...] 2:30 PM EDT Office Visit Hematology/Oncology at [address] [phone] Edgar Carreon MD [facility] [place] [address] Kadie Gaming APRN [facility] [place] [address] 05/15/2024 3:30 PM EST Office Visit Radiation Oncology at [address] [phone] Patsy Shelton MD [facility] [place] [address] documented as of this encounter Visit Diagnoses Not on filedocumented in this encounter Care Teams Colliery Clerk Relationship Specialty Start Date End Date Navid Avendaño MD [address] [place] [address] PCP - General Family Medicine 01/24/19 documented as of this encounter
--- OUTSIDE RECORDS SUMMARY | 2024-02-29 01:30 | XMS_ITS | Encounter Summary ---
Author Organization [facility] Address [facility] [place] [address] Care Team Providers Care Transportation Department Supervisor Name Role Phone Maya Burden MD Primary Care Provider [phone] Encounter Details Date Type Department Care Team (Late st Contact Info) Description 03/28/2015 3:12 PM EDT Anesthesia Event [place] [address] Ibrahima Burris MD [facility] [place] [address] Gale Armendariz MD [facility] [place] [address] Anesthesia Record Procedure Summary Procedure Name Responsible Anesthesiologist Anesthesia Start Time Anesthesia Stop Time ROBOTIC LAPAROSCOPY,TOTAL HYST, UTERUS<250GM, REM TUBE &/OR OVARY (WRVU 15) (Uterus) Ibrahima Burris MD 03/28/15 1512 03/28/15 1824 Events Date Time Event Comment 03/28/2015 1450 1512 Start 1515 AN Verify 1515 An Start Data 1520 An Induction 1533 Anesthesia Ready 1550 Procedure Start 1612 Handoff Anesthesia care was transferred after review of the patient's history, current anesthetic/surgical status and plan, according to the Provider Handoff Checklist. 1713 Handoff Anesthesia care was transferred after review of the patient's history, current anesthetic/surgical status and plan, according to the Provider Handoff Checklist. 1751 Quick Note End insufflatio n. Recruitment maneuver x 4. 1809 Extubation/LMA Out Pt extuba logan smoothly after recruitment maneuvers, oropharynx suctioned, and OE to voice. Exchanging well over OPA. VSS. 181 an stop data 1823 Stop Pt to PACU safe ly. Pt OE to voice, remains drowsy, OPA in place and pt exchanging well. VSS. RN handoff complete. Meds Name Total Midazolam 2 mg fentaNYL 25 mcg Propofol 300 mg Rocuronium 110 mg Ondansetron 4 mg Dexamethasone 4 mg Neostigmine 5 mg Glycopyrrolate 0.8 mg ceFAZolin (ANCEF) 2g in dextrose 5% 50 m L 2 g diphenhydrAMINE 50 mg HYDROmorphone 0.4 mg lactated ringers infusion 1,000 mL 1,000 mL Lactated Ringers 600 mL * Agents Name O2 Air Sevoflurane (et) * Blood No blood administrations on file. Lines, Drains, and Airways Type Details Placement Removal NG/OG Tube orogastric; 16 Fr; Secured 03/28/15 1612 by Incision 03/28/15; abdomen; 03/02/22 (LDA cleanup utility RA#[id number]); 1715 (LDA cleanup utility RA#[id number]) 03/28/15 0000 by Gisela Mehta RN 03/02/22 1715 by Lea Hoang Urethral Catheter 03/28/15; Surgery lo nger than 2 hours, Physician order, Abdominal surgery; Prolonged Immobilization, Physician order; indwelling double lumen catheter; 100% silicone; 16; inserted at this facility; 1; 10; 10; none; drainage bag to dependent drainage; urethral catheter removed; 03/29/15; 0620 03/28/15 0000 by Gisela Mehta RN 03/29/15 0620 by Emma Veras RN (RETIRED) Peripheral IV Line - Single Lumen 03/28/15; 1421; cephalic vein right (lateral side of arm); 18 gauge, 1 in length; 03/29/15; 1200 03/28/15 1421 by Isamar Lau RN 03/29/15 1200 by Nadia Chandler RN (RETIRED) Peripheral IV Line - Single Lumen 03/28/15; 1515; metacarpal vein left (top of hand); [id number] catheter system; 18 gauge; [place]; 03/29/15; 1200 03/28/15 1515 by Parviz Mccall MD 03/29/15 1200 by Nadia Chandler RN ETT Mask Ventilation: Adjunct (2); ETT Type: Cuffed, Oral; ETT Size: 7 mm; Mac Blade: 3; Notes: Asleep, Pre-O2, Cricoid Pressure, Stylette; Attempts: 1; Laryngoscopy Grade: 1; ETT Placement Verified By: Auscultation, Capnometry; Secured at Teeth: 21 cm; Inserted by: Stefany; Removal Date: 03/28/15; Removal Time: 180803/28/15 161 by 03/28/151808 by Andres Stafford CRNA documented in this encounter Social History Tobacco Use Types Packs/Day Years Used Date Smoking Tobacco: Never Smokeless Tobacco: Never Alcohol Use Standard Drinks/Week Comments No 0 (1 standard drink = 0.6 oz pur e alcohol) Sex and Gender Information Value Date Recorded Sex Assigned at Not on file Gender Identity Not on file Sexual Orientation Not on file documented as of this encounter OR Notes * Anesthesia Postprocedure Evaluation - Ibrahima Burris MD - 03/28/2015 8:16 PM EDT Patient: Myesha Santizo Procedure(s) Performed: Procedure(s): LAPAROSCOPY,TOTAL HYST, UTERUS<250GM, EVER TYBE &/OR OVARY, ROBOTIC ASSIST LAPAROSCOPY,W\BILATERAL TOTAL PELVIC LYMPHADENECTOMY, PERIAORTIC LYMPH NODE SAMPLING, ROBOTIC Actual Anesthetic: general Patient location: PACU Post-op pain: Adequate analgesia Post-op nausea: no nausea or vomiting Last Vitals: Filed Vitals: 03/28/151999 BP: 131/58 Pulse: 72 Temp: Resp: 14 Post-op cardiovascular and respiratory status: is stable Level of consciousness: awake, alert and oriented Complications: no apparent complications and tolerated the procedure well Fluid Status: normal * Anesthesia Preprocedure Evaluation - Gale Armendariz MD - 03/28/2015 1:01 PM EDT Pre-Anesthesia Evaluation for: Myesha Santizo a 69 y.o. female. Procedure(s): LAPAROSCOPY,TOTAL HYST, UTERUS<250GM, EVER TYBE &/OR OVARY, ROBOTIC ASSIST LAPAROSCOPY,W\BILATERAL TOTAL PELVIC LYMPHADENECTOMY, PERIAORTIC LYMPH NODE SAMPLING, ROBOTIC MODIFIER ROBOT,DAVJOANNAI XI Patient Active Problem List Diagnosis ??? Endometrial adenocarcinoma ??? Morbid obesity with BMI of 40.0-44.9, adult ??? Anxiety ??? Hypothyroidism ??? Avila's esophagus ??? Sleep apnea ??? Diabetes mellitus type 2, uncomplicated Past Medical History Diagnosis Date ??? Hypothyroid ??? Hypertension ??? Squamous cell skin cancer ??? Avila esophagus ??? Hyperlipidemia ??? Anxiety ??? Hypothyroid ??? Hx of adenomatous polyp of colon Past Surgical History Procedure Laterality Date ??? Breast biopsy ??? Endometrial biopsy ??? section History Substance Use Topics ??? Smoking status: Never Smoker ??? Smokeless tobacco: Never Used ??? Alcohol Use: No History Drug Use No Allergies Allergen Reactions ??? Atorvastatin Calcium CIS - myalgias Medications: MAR and/or home medications have been reviewed. Physical Exam: There were no vitals filed for this visit. There is no height or weight on file to calculate BMI. Airway Assessment: Mallampati: II TM distance: >3 FB Neck ROM: full Cardiovascular Assessment: Pulmonary Assessment: Dental Assessment: (+) upper dentures Comment: Has only 6 bottom front teeth Misc Assessment: Anesthesia Plan: ASA 3 general, with a(n) intravenous induction Myesha Santizo is a 69 y.o. female presenting for robotic-assisted total hysterectomy. The patient's past medical history, past surgical history, medications, and allergies were reviewedand notable for: - endometrial CA - BMI>35 - GERD with hx of Avila's esophagus - DM2 on metformin only - HTN, HLP, hypothyroidism Patient's documented history was NEGATIVE for seizures, CVA, cardiac disease, pulmonary disease, hepatic disease, renal disease, and coagulopathy. There is no evidence of any recent URI symptoms, fevers/chills, or other signs of infection. Labs were reviewed and CBC and BMP WNL No active T/S Allergies: -- Atorvastatin Calcium -- CIS - myalgias -- lidocaine gives her a headache but no actual allergy symptoms NPO Status: Appropriate Anesthetic History: No prior anesthetic documentation available. Anesthetic Plan: GA with ETT, possible RSI Standard ASA monitoring Adequate IV access The patient was informed of the risks, benefits and alternatives of anesthesia. These risks included, but were not limited to, post-operative nausea and/or vomiting, pain, sore throat, dental/lip trauma, and other rare but serious complications such as major organ damage, awareness, severe allergicreactions, position-related nerve injuries, and need blood transfusions. All questions were sought and answered. Consent was signed and placed in chart. Parviz Mccall MD PhD 03/28/2015 Region - Other Informed Consent: Anesthetic plan and risks discussed with patient. Plan discussed with attending. [facility] Assessment: documented in this encounter Plan of Treatment Upcoming Encounters Date Type Department Care Team (Late st Contact Info) Description 03/21/2024 2:30 PM EDT Office Visit Hematology/Oncology at [address] [phone] Edgar Carreon MD [facility] DR [place] [address] Kadie Gaming APRN [facility] [place] [address] 05/15/2024 3:30 PM EST Office Visit Radiation Oncology at [address] [phone] Patsy Shelton MD [facility] [place] [address] documented as of this encounter Visit Diagnoses Not on filedocumented in this encounter Administered Medications Inactive Administered Medications - up to 3 most recent administrations Medication Order MAR Action Action Date Dose Rate Site ceFAZolin (ANCEF) 2g in dextrose 5% 50 mL 2 g, Intravenous, ONCE, 1 dose, On Celina 03/28/15 at 1430, Administer over 30 Minutes, Redose every 3 hours if CrCl is greater than 20. Redose every 8 hours if CrCl is less than 20., Day of Surgery (Day of Procedure), Indication for (Active or Suspected): Prophylaxis Given 03/28/2015 3:33 PM EDT 2 g dexamethasone (DECADRON) injection PRN, Starting on Celina 03/28/15 at 1536, Until Celina 03/28/15 at 1824, Anesthesia Intra-op, Routine Given 03/28/2015 3:36 PM EDT 4 mg diphenhydrAMINE (BENADRYL) injection PRN, Starting on Celina 03/28/15 at 1546, Until Celina 03/28/15 at 1824, Itching, Anesthesia Intra-op, Routine Given 03/28/2015 3:46 PM EDT 50 mg fentaNYL 50 mcg/mL multi-dose injection PRN, Starting on Celina 03/28/15 at 1739, Until Celina 03/28/15 at 1824, Pain, Anesthesia Intra-op, Routine Given 03/28/2015 5:39 PM EDT 25 mcg glycopyrrolate (ROBINUL) multi-dose injection PRN, Starting on Celina 03/28/15 at 1753, Until Celina 03/28/15 at 1824, Anesthesia Intra-op, Routine Given 03/28/2015 5:53 PM EDT 0.8 mg HYDROmorphone (DILAUDID) injection PRN, Starting on Celina 03/28/15 at 1552, Until Celina 03/28/15 at 1824, Pain, Anesthesia Intra-op, Routine Given 03/28/2015 3:52 PM EDT 0.4 mg lactated ringers infusion 1,000 mL 1,000 mL, at 100 mL/hr, Intravenous, CONTINUOUS, Starting on Celina 03/28/15 at 1430, Until Celina 03/28/15 at 2034, Day of Surgery (Day of Procedure) New Bag 03/28/2015 5:00 PM EDT New Bag 03/28/2015 2:30 PM EDT 1,000 mLs 100 mL/hr lactated ringers infusion CONTINUOUS PRN, Starting on Celina 03/28/15 at 1527, Until Celina 03/28/15 at 1824, Anesthesia Intra-op New Bag 03/28/2015 3:27 PM EDT midazolam (PF) (VERSED) 1 mg/mL multi-dose injection PRN, Starting on Celina 03/28/15 at 1515, Until Celina 03/28/15 at 1824, Sleep, Anesthesia Intra-op, Routine Given 03/28/2015 3:12 PM EDT 2 mg neostigmine (PROSTIGMINE) multi-dose injection PRN, Starting on Celina 03/28/15 at 1753, Until Celina 03/28/15 at 1824, Anesthesia Intra-op, Routine Given 03/28/2015 6:00 PM EDT 1 mg Given 03/28/2015 5:53 PM EDT 4 mg ondansetron (ZOFRAN) injection PRN, Starting on Celina 03/28/15 at 1753, Until Celina 03/28/15 at 1824, Nausea, Anesthesia Intra-op, Routine Given 03/28/2015 5:53 PM EDT 4 mg propofol (DIPRIVAN) 10 mg/mL bolus injection (Anesthesia) PRN, Starting on Celina 03/28/15 at 1520, Until Celina 03/28/15 at 1824, Anesthesia Intra-op Given 03/28/2015 3:27 PM EDT 100 mg Given 03/28/2015 3:20 PM EDT 200 mg rocuronium (ZEMURON) multi-dose injection PRN, Starting on Celina 03/28/15 at 1520, Until Celina 03/28/15 at 1824, Anesthesia Intra-op, Routine Given 03/28/2015 4:53 PM EDT 30 mg Given 03/28/2015 4:18 PM EDT 20 mg Given 03/28/2015 3:20 PM EDT 60 mg documented in this encounter Care Teams Transportation Department Supervisor Relationship Specialty Start Date End Date Maya Burden MD [address] [place] [address] PCP - General 05/27/10 01/23/19 documented as of this encounter
--- OUTSIDE RECORDS SUMMARY | 2024-02-29 01:30 | XMS_ITS | Encounter Summary ---
[facility] Address [facility] [place] [address] Care Team Providers Care Vat House Supervisor Name Role Phone Navid Avendaño MD Primary Care Provider [phone] Encounter Details Date Type Department Care Team (Late st Contact Info) Description 03/14/2019 Notes Only Hematology/Oncology at [address] [phone] Stephanie Stinson MSW OFFICE OF CARE MANAGEMENT Social History Tobacco Use Types Packs/Day Years Used Date Smoking Tobacco: Never Smokeless Tobacco: Never Alcohol Use Standard Drinks/Week Comments No 0 (1 standard drink = 0.6 oz pur e alcohol) Sex and Gender Information Value Date Recorded Sex Assigned at Not on file Gender Identity Not on file Sexual Orientation Not on file documented as of this encounter Progress Notes * Stephanie Stinson MSW - 03/14/2019 11:39 AM EDT Follow up with pt and daughter during infusion today. Pt reports she is doing fairly well. She doeswhat she can and leaves the rest. She has a lot of support from her daughter and son in law. Daughter knitting pt hats as she is losing her hair. Discussion about pt's advance directive. She plans to locate the one she has done and review it with her daughter who is her agent. Daughter indicated she was her father's agent and felt it was helpful to have his AD to guide her. She does wish it had more direction. Used this as a reason for pt and daughter to continue their discussion re pt's wishes so her directive reflects this. Offered support. Reminded pt and daughter of ORTHOPEDIC RN availability and will follow for support and resources. documented in this encounter Plan of Treatment Upcoming Encounters Date Type Department Care Team (Late st Contact Info) Description 03/21/2024 2:30 PM EDT Office Visit Hematology/Oncology at [address] [phone] Edgar Carreon MD [facility] DR [place] [address] Kadie Gaming APRN [facility] [place] [address] 05/15/2024 3:30 PM EST Office Visit Radiation Oncology at [address] [phone] Patsy Shelton MD [facility] [place] [address] documented as of this encounter Visit Diagnoses Not on filedocumented in this encounter Care Teams Vat House Supervisor Relationship Specialty Start Date End Date Navid Avendaño MD [address] [place] [address] PCP - General Family Medicine 01/24/19 documented as of this encounter
--- OUTSIDE RECORDS SUMMARY | 2024-02-29 01:30 | XMS_ITS | Encounter Summary ---
Author Organization Formerly [facility] Address [facility] [address] [place] [address] Care Team Providers Care Facilities Maintenance Technician Name Role Phone Maya Gambino MD Primary Care Provider [phone] Encounter Details Date Type Department Care Team (Late st Contact Info) Description 03/28/2015 2:59 PM EDT - 03/28/2015 6:27 PM EDT Surgery [place] [id number] Anthony Johns MD [facility] [place] [address] ROBOTIC LAPAROSCOPY,TOTAL HYST, UTERUS<250GM, REM TUBE &/OR OVARY (WRVU 15) Social History Tobacco Use Types Packs/Day Years [...] Sign Reading Time Taken Comments Blood Pressure 132/63 03/29/2015 11:47 AM EDT Pulse 80 03/29/2015 11:47 AM EDT Temperature 37 ??C (98.6 ??F) 03/29/2015 11:47 AM EDT Respiratory Rate 17 03/29/2015 5:27 AM EDT Oxygen Saturation 96% 03/29/2015 11:47 AM EDT Inhaled Oxygen Concentration - - Weight 101.6 kg (224 lb) 03/28/2015 2:00 PM EDT Height 152.4 cm (5') 03/28/2015 2:00 PM EDT Body Mass Index 43.75 03/28/2015 2:00 PM EDT documented in this encounter Discharge Summaries * Aliyah Izaguirre PA - 03/29/2015 11:33 AM EDT Images from the original note were not included. Discharge Summary Patient Name: Myesha Santizo Patient Age: 69 y.o. Language: Sudanese Race: White Ethnicity: Not nor Admit date: 03/28/2015 Discharge date and time: 03/29/2015 Attending Physician: Anthony Johns MD Discharge Physician: Anthony Johns MD Follow-up Recommendations for Providers: Follow up appointment with Dr. Johns 04/23/15 at 11:00 AM Inpatient Provider Contact Information: Dr. Johns, [facility] Gynecologic Oncology, Discharge Diagnoses (Hospital Problems) and Secondary Diagnoses (Chronic Problems): Active Hospital Problems Diagnosis ??? Endometrial adenocarcinoma ??? Diabetes mellitus type 2, uncomplicated Resolved Hospital Problems Diagnosis Date Resolved No resolved problems to display. Active Non-Hospital Problems Diagnosis ??? Morbid obesity with BMI of 40.0-44.9, adult ??? Anxiety ??? Hypothyroidism ??? Avila's esophagus ??? Sleep apnea Operations/Major Procedures: 03/28/15: Robotic assisted laparoscopic total hysterectomy, bilateral salpingo- oophorectomy, cystoscopy History of Presentation: Myesha is a 69 y.o. woman with a past medical history of hypothyroidism, type II DM, and anxiety. She was in her normal state of health until a couple months ago when she started having intermittent vaginal spotting and pain in her right side of her abdomen. The pain built up over time and felt like it was her diverticulosis. Her primary care physician recommended an EMB and ultrasound. EMB on 02/07/15 showed endometrial adenocarcinoma, endometrioid type (FIGO grade 1) Pelvic U/S 01/30/15 from [facility] showed a thickened endometrial stripe (no measurement given), right ovary 4.7 x 2.9 x 3.6 cm, and left ovary 2.0 x 0.[address] abd/pelvis 02/07/15 showed no pelvic mass, but did show evidence of diverticulitis. Hospital Course: Myesha Santizo was admitted through Same Day Surgery and underwent the above procedures without complication. EBL was 150cc. Findings were notable for: 1. Exam under anesthesia: Normal sized uterus, cervix, and ovaries with no evidence of vaginal or cervical metastasis. 2. Laparoscopy: Normal upper abdomen. There were extensive adhesions of the left adnexa, uterus, and sigmoid colon, requiring about 30 minutes of enterolysis and left ureterolysis. No evidence of extrauterine disease, carcinomatosis, or ascites. The ovaries were grossly normal. After the hysterectomy, the uterus was opened off the field and was found to contain a 2.2 cm minimally invasive tumor involving the fundus . Based upon gross examination, there was some concern for a large tumor or deep and/or lower uterine segment involvement, so a frozen section was performed.. 3. Frozen section: Cervix, uterus, tubes and ovaries for frozen section: grade - low; depth of invasion <1/2, TRAV - not invovled, size - 2.5 cm gross estimate 4. Residual disease: No gross residual disease. 5. Cystoscopy: The bladder appeared normal; both ureteral orifices were seen, with strong bilateralurine jets noted. Postoperatively the patient was taken to PACU and on POD #0 was transferred to the floor. Post operative course was uncomplicated. She was able to tolerate a regular diet and ambulate without difficulty. Dowd catheter was removed on POD#1 and pt was able to void without issue. Her pain was well-controlled on oral medications by the time of discharge. She was discharged home on POD #1 in stable condition with follow-up in place. We discussed discharge instructions and plan of care, all questions answered. Specifically concerning her ibuprofen we advised it is okay to use as needed for the next week but if she needs pain medication consistently for her arthritis she should discuss with her PCP in the setting of her elevated creatinine (0.97 preoperatively -->1.03 post-operatively) and slightly decreased renal function (GFR 53). Vital signs at Discharge: BP: 117/60 mmHg, Heart Rate: 82, Temp: 37 ??C (98.6 ??F), Resp: 17, BMI (Calculated): 43.8 Height: 152.4 cm (5') (03/28/15 1400) Weight - Scale: 101.606 kg (224 lb) (03/28/15 1400) Functional and Cognitive status: Fully functional and cognitively intact Important Studies and Lab Data: Labs: Last 3 wbc, hgb, hct plt Recent Labs 03/29/15 0459 03/01/15 1143 WBC 10.6* 8.0 HGB 10.2* 12.2 HCT 32.2* 37.8 PLATELET 168 221 Last 3 Lytes Recent Labs 03/29/15 0459 03/01/15 1143 NA 138 140 K 4.6 4.0 CL 99 100 CO2 28 28 BUN 13 18 CREATININE 1.03 0.97 Studies: Frozen section: Cervix, uterus, tubes and ovaries for frozen section: grade - low, depth of invasion <1/2, TRAV - not invovled, size - 2.5 cm gross estimate. Pending Studies and Lab Data: Final pathology pending Discharge Conditions/Prognosis: Stable Discharge to: Home Updated Allergies/ADRs: Allergies Allergen Reactions ??? Atorvastatin Calcium CIS - myalgias Immunizations Given this Hospitalization: There is no immunization history on file for this patient. Discharge Medications: Your Medications Notice Some of the medications listed here do not show instructions, such as how often to take the medication. Ask your doctor or nurse how to use these medications. Specifically ask about these and similar medications: - multivitamin (DAILY MULTIPLE) tablet - pravastatin (PRAVACHOL) 20 mg tablet New Medications Dose Details ibuprofen 600 mg Tab Commonly known as: ADVIL;MOTRIN Take 1 tablet by mouth every 6 hours as needed for Pain. Replaces: Ibuprofen 200 mg Cap 600 mg Quantity: 30 tablet Refills: 0 oxyCODONE 5 mg Tab Commonly known as: ROXICODONE Take 1 tablet by mouth every 4 hours as needed for Pain. Please do NOT take while using lorazepam 5 mg Quantity: 10 tablet Refills: 0 senna-docusate 8.6-50 mg Tab Commonly known as: PERICOLACE Take 1 tablet by mouth daily. 1 tablet Quantity: 60 tablet Refills: 0 Continued medications with new dosing Dose Details PriLOSEC 20 mg Cpdr 20mg, PO, Once daily Generic drug: omeprazole What changed: See the new instructions. Refills: 0 Continued medications, unchanged Dose Details acetaminophen 500 mg Tab Commonly known as: TYLENOL As needed Refills: 0 aspirin 81 mg Tbec Daily Refills: 0 DAILY MULTIPLE Tab Generic drug: multivitamin Refills: 0 fluoruracil 0.5 % Crea Commonly known as: CARAC Apply topically daily. Refills: 0 lisinopril 10 mg Tab Commonly known as: PRINIVIL;ZESTRIL Daily Refills: 0 LORazepam 1 mg Tab Commonly known as: ATIVAN nightly as needed. Once Refills: 0 metFORMIN 500 mg Tab Commonly known as: GLUCOPHAGE Twice a day Refills: 0 pravastatin 20 mg Tab Commonly known as: PRAVACHOL Refills: 0 sertraline 50 mg Tab Commonly known as: ZOLOFT Daily Refills: 0 SYNTHROID 75 mcg Tab 75mcg, PO, Once daily Generic drug: levothyroxine Refills: 0 vitamin E 400 unit Cap Daily Refills: 0 STOPPED Medications Ibuprofen 200 mg Cap Replaced by: ibuprofen 600 mg Tab Smoking Status at Discharge: History Smoking status ??? Never Smoker Smokeless tobacco ??? Never Used Instructions Given to Patient at Discharge: Patient Instructions PATIENT DISCHARGE INSTRUCTIONS Follow up appointment with Dr. Johns: 04/23/15 at 11:00 AM Gynecology Oncology phone number: [phone] Call your doctor if you develop: --A fever over 101 degrees --Severe pain --Heavy vaginal bleeding --Increasing pain, redness, or discharge at your incision --It is normal to have light spotting from the vagina for up to 3 weeks following hysterectomy Activity level: No heavy lifting, pushing or pulling for 6 weeks. No sexual intercourse, no tampons, nothing in the vagina for 8 weeks. Diet: You may resume your regular diet. Be sure you drink plenty of fluids. Please use merritt-colace 1-2 tablets twice daily for the entire time that you are taking pain medication to keep your bowel movements soft and regular. If you are constipated or have not had a bowel movement in 3 days, pleaseuse milk of magnesia (or miralax) as directed over the counter. Driving: Do not drive until you are off of all narcotic medications and you are not feeling pain; usually about 2 weeks. Shower/Bath: Showering is fine. Short baths are OK but you should avoid having any abdominal incision submerged for more than 10-15 minutes for the next 2 weeks. Wound Care: Your incisions are closed with dissolvable stitches and surgical glue. The glue will dissolve on its own over time - do not pick at or rub the glue. The stitches do not need to be removed- they will dissolve on their own. Pain medications include oxycodone and ibuprofen and acetaminophen ??? Please use ibuprofen 600 mg every 6 hours with food around the clock for the next several days and then after that use it only as needed. ??? Please use the oxycodone every 4-6 hours as needed for pain that breaks through the motrin. ??? You may take Tylenol over the counter as prescribed. Do not exceed 3000mg of Tylenol in any 24 hour period. General Instructions None Future Appointments Provider Department Dept Phone 04/23/2015 11:00 AM Anthony Johns MD Gynecologic Oncology [phone] Discharge References/Attachments None Provider Contact Information: MAYA GAMBINO MD (General) [phone] documented in this encounter Discharge Instructions * Patient Instructions* Aliyah Izaguirre PA - 03/28/2015 4:25 PM EDT Images from the original note were not included. PATIENT DISCHARGE INSTRUCTIONS Follow up appointment with Dr. Johns: 04/23/15 at 11:00 AM Gynecology Oncology phone number: [phone] Call your doctor if you develop: --A fever over 101 degrees --Severe pain --Heavy vaginal bleeding --Increasing pain, redness, or discharge at your incision --It is normal to have light spotting from the vagina for up to 3 weeks following hysterectomy Activity level: No heavy lifting, pushing or pulling for 6 weeks. No sexual intercourse, no tampons, nothing in the vagina for 8 weeks. Diet: You may resume your regular diet. Be sure you drink plenty of fluids. Please use merritt-colace 1-2 tablets twice daily for the entire time that you are taking pain medication to keep your bowel movements soft and regular. If you are constipated or have not had a bowel movement in 3 days, pleaseuse milk of magnesia (or miralax) as directed over the counter. Driving: Do not drive until you are off of all narcotic medications and you are not feeling pain; usually about 2 weeks. Shower/Bath: Showering is fine. Short baths are OK but you should avoid having any abdominal incision submerged for more than 10-15 minutes for the next 2 weeks. Wound Care: Your incisions are closed with dissolvable stitches and surgical glue. The glue will dissolve on its own over time - do not pick at or rub the glue. The stitches do not need to be removed- they will dissolve on their own. Pain medications include oxycodone and ibuprofen and acetaminophen ??? Please use ibuprofen 600 mg every 6 hours with food around the clock for the next several days and then after that use it only as needed. ??? Please use the oxycodone every 4-6 hours as needed for pain that breaks through the motrin. ??? You may take Tylenol over the counter as prescribed. Do not exceed 3000mg of Tylenol in any 24 hour period. documented in this encounter Medications at Time of Discharge Medication Sig Dispensed Refills Start Date End Date senna-docusate (PERICOLACE) 8.6-50 mg Tablet Take 1 [...] daily. 04/08/2006 multivitamin (DAILY MULTIPLE) tablet 04/08/2006 ibuprofen (ADVIL;MOTRIN) 600 mg Tablet Take 1 tablet by mouth every 6 hours as needed for Pain. 30 tablet 0 03/29/2015 09/30/2020 oxyCODONE (ROXICODONE) 5 mg Tablet Take 1 tablet by mouth every 4 hours as needed for Pain. Please do NOT take while using lorazepam 10 tablet 0 03/29/2015 04/23/2015 fluoruracil (CARAC) 0.5 % Cream Apply topically daily. 04/23/2015 vitamin E 400 unit Capsule Daily 12/24/2012 09/08/2022 sertraline (ZOLOFT) 50 mg Tablet 100 mg. Daily 05/02/2013 02/18/2021 LORazepam (ATIVAN) 1 mg Tablet nightly as needed. Once 01/31/2015 01/01/2021 pravastatin (PRAVACHOL) 20 mg tablet 07/30/2006 03/17/2022 levothyroxine (SYNTHROID) 75 mcg tablet 75mcg, PO, Once daily 04/08/20062021 documented as of this encounter Progress Notes * Anthony Johns MD - 03/29/2015 6:53 AM EDT Gynecologic Oncology - Progress Note Myesha Santizo is a 69 y.o. woman whose PMH is significant for hypothyroidism, HTN, SCC, Avila's esophagus, hyperlipidemia, LUAN, and anxiety who is post operative day # 1 s/p RALTH, BSO and cystoscopy for Grade 1 endometrial carcinoma. EBL 150 cc. Subjective: Myesha feels well and slept with CPAP mask on. Her incision pain is well controlled on Toradol and oxycodone. She complains of low back pain worse on the right side, which is not new for her. She hastolerated a regular diet without nausea/vomiting. She has not yet ambulated, and her Dowd is stillin place. She denies passing flatus. She denies headache, chest pain, palpitations, shortness of breath or pain in her lower extremities. Physical Exam: Last Set of Vitals and range of vitals over past 24 hours: Last value Range last 24 hrs Temperature Temp: 36.6 ??C (97.9 ??F) Temp: [36.4 ??C (97.5 ??F)-37 ??C (98.6 ??F)] Heart Rate Heart Rate: 75 Heart Rate: [66-85] Blood Pressure BP: 116/49 mmHg BP: (116-157)/(48-81) Respiratory Rate Resp: 17 Resp: [14-21] SpO2 SpO2: 96 % SpO2: [90 %-100 %] Intake/Output Summary (Last 24 hours) at 03/29/15 0654 Last data filed at 03/29/15 0611 Gross per 24 hour Intake 1850 ml Output 1020 ml Net 830 ml I/O this shift: In: 150 [I.V.:150] Out: 560 [Urine:560] UOP overnight: 55 cc/hr x 9 recorded hours Body mass index is 43.75 kg/(m^2). Gen: Resting comfortably in bed. CPAP mask on. NAD. Cardiac: RRR. No murmurs, rubs, or gallops. Pulm: CTAB. No wheezes, rales, or rhonci. Abd: Normoactive BS. Mildly distended. Non tender. No rebound or guarding. Incision: Five laparoscopic port sites covered in surgical glue, clean, dry, intact, no erythema, induration, ecchymoses : Dowd draining clear yellow urine. Extremities: No lower extremity edema or calf tenderness, SCDs in place and operating. Laboratory (Last 24 Hours): Recent Labs 03/29/15 0459 WBC 10.6* HGB 10.2* HCT 32.2* PLATELET 168 Recent Labs 03/29/15 0459 NA 138 K 4.6 CL 99 CO2 28 BUN 13 CREATININE 1.03 Assessment and Plan Myesha Santizo is a 69 y.o. woman whose PMH is significant for hypothyroidism, HTN, SCC, Avila's esophagus, hyperlipidemia, LUAN, and anxiety who is post operative day # 1 s/p RALTH, BSO and cystoscopy for Grade 1 endometrial carcinoma. EBL 150 cc. She is recovering well post-operatively. Neuro: Pain well controlled on Toradol, and oxycodone. History of anxiety. - Continue Toradol --> ibuprofen, oxycodone. - Continue home Zoloft and Ativan PRN. Cardiovascular: Vital signs wnl. Hemodynamically stable, no evidence of bleeding. - Continue home medications once discharged: Lisinopril and pravastatin (holding) Pulmonary: Adequate SpO2 on CPAP (6L/min). History of LUAN. No concerns. - Encourage incentive spirometry GI: Tolerating regular diet without nausea/vomiting. -Continue regular diet. -Zofran PRN, Pericolace. : Dowd is in place draining clear yellow urine. Adequate UOP overnight. -D/C dowd this morning. -Monitor intake and output. FEK: IVF: LR @100cc/hr. Tolerating PO intake. -Discontinue IV fluids as taking PO. Endocrine: Hypothyroid. -Continue home Synthroid. Onc: - Final pathology pending. ID: Afebrile, received prophylactic antibiotics preop, no evidence of infection -continue to monitor vital signs. Prophylaxis: - SCDs while in bed, encourage ambulation, incentive spirometry Dispo: Pt continues to require inpatient hospitalization for post-operative recovery, anticipate discharge later today once meeting all postoperative goals. Code Status: Full Code STELLA LOPEZ MD, PGY1 03/29/2015 I saw and evaluated the patient with Dr. Lopez, and I confirmed the history and physical findings as outlined, and I agree with the note as written. * Anthony Johns MD - 03/28/2015 11:10 PM EDT Gynecology - Post Op Check Myesha Santizo is a 69 y.o. woman whose PMH is significant for hypothyroidism, HTN, SCC, Avila's esophagus, hyperlipidemia, LUAN, and anxiety who is post operative day # 0 s/p RALTH, BSO and cystoscopy for Grade 1 endometrial carcinoma. EBL 150 cc. Intraoperative Events: - Extensive TRINA and left ureterolysis performed. Cystoscopy revealed normal bladder with strong urine jets from bilateral ureteral orifices. Subjective: Myesha feels well and has been sleeping comfortably with CPAP mask on. Her incision pain is well controlled on Toradol and currently rates it 0/10. She complains of low back pain worse on the right side, which is not new for her. She has tolerated 2 cups of water and a turkey sandwich without nausea or vomiting. She denies passing flatus. She has stood up OOB once so far without lightheadedness. She denies chest pain, shortness of breath or pain in her lower extremities. Physical Exam: Last Set of Vitals and range of vitals over past 24 hours: Last value Range last 24 hrs Temperature Temp: 36.7 ??C (98.1 ??F) Temp: [36.4 ??C (97.5 ??F)-37 ??C (98.6 ??F)] Heart Rate Heart Rate: 73 Heart Rate: [66-85] Blood Pressure BP: 142/67 mmHg BP: (126-157)/(48-81) Respiratory Rate Resp: 18 Resp: [14-21] SpO2 SpO2: 95 % SpO2: [90 %-100 %] Intake/Output Summary (Last 24 hours) at 03/28/15 2310 Last data filed at 03/28/152031 Gross per 24 hour Intake 1850 ml Output 520 ml Net 1330 ml I/O this shift: In: 150 [I.V.:150] Out: 60 [Urine:60] UOP at ~40-50 cc/hr (Dowd ba cc over the last 3 hours) Body mass index is 43.75 kg/(m^2). Gen: Resting comfortably in bed. CPAP mask on. NAD. Neuro: Alert and oriented. Cardiac: RRR. No murmurs, rubs, or gallops. Pulm: CTAB. No wheezes, rales, or rhonci. Abd: Normoactive BS. Softly distended and tympanic. Non tender. No rebound or guarding. Laparoscopic port incision x 5 are C/D/I. : Dowd draining clear yellow urine. No blood on pad. Extremities: No lower extremity edema or calf tenderness, SCDs in place and operating. Laboratory (Last 24 Hours): No results for input(s): WBC, HGB, HCT, PLATELET in the last 168 hours. No results for input(s): NA, K, CL, CO2, BUN, CREATININE, MAGNESIUM, PHOS in the last 168 hours. CBC and BMP pending in AM. Assessment and Plan Myesha Santizo is a 69 y.o. woman whose PMH is significant for hypothyroidism, HTN, SCC, Avila's esophagus, hyperlipidemia, LUAN, and anxiety who is post operative day # 0 s/p RALTH, BSO and cystoscopy for Grade 1 endometrial carcinoma. EBL 150 cc. Neuro: Pain well controlled on toradol. Alert and oriented.History of anxiety - Continue Toradol --> ibuprofen, oxycodone. - Continue home Zoloft and Ativan PRN Cardiovascular: Vital signs wnl. Hemodynamically stable, no evidence of bleeding. -AM CBC -Home meds: Lisinopril and pravastatin (holding) Pulmonary: Adequate SpO2 on CPAP (6L/min). History of LUAN. No concerns - Encourage incentive spirometry GI: Denies nausea, vomiting. Tolerating regular diet. -Advance diet as tolerated. -Zofran PRN, Pericolace. : Dowd is in place draining clear yellow urine. Adequate UOP, ~50cc/hr. -D/C dowd when ambulatory -Monitor intake and output FEK: IVF: LR @100cc/hr. Tolerating PO intake. -Am BMP. Endocrine: Hypothyroid -Continue synthroid ID: Afebrile, received prophylactic antibiotics preop, no evidence of infection -continue to monitor vital signs. Prophylaxis: - SCDs while in bed, encourage ambulation, incentive spirometry Dispo: Pt continues to require inpatient hospitalization for post-operative recovery, anticipate discharge POD#1. Code Status: Full Code SHERRY AGUIAR MD, PGY1 03/28/2015 I saw and evaluated the patient with Dr. Aguiar, and I confirmed the history and physical findings asoutlined, and I agree with the note as written. * Sophie Rosario RN - 03/28/2015 6:36 PM EDT Hand off received from Arturo Webb RNcare assumed. Assessments as charted. Alarms audible and individualized. Placed on home CPAP by respiratory therapist. desat to 85%, Oxygen bleed in added to CPAP with rapid improvement 2030 PACU D/C criteria met. Hand off to BRANDON Simpson BP documented in this encounter H&P Notes * Anthony Johns MD - 03/28/2015 3:00 PM EDT Inpatient GRADES 9 THROUGH 12 TEACHER - Admission Interval Note I have reviewed the pre-procedure H&P completed by Dr. Hernandez on 03/01/15. (x) Condition unchanged since H&P originally performed. Interval Note: S: Myesha Santizo feels well today. No complaints / concerns. O: BP 141/79 mmHg Pulse 83 Temp(Src) 37 ??C (98.6 ??F) Resp 16 Ht 152.4 cm (5') Wt 101.606 kg (224 lb) BMI 43.75 kg/m2 SpO2 97% Gen: Sitting in bed, appears comfortable CV: Normal rate, regular rhythm, normal S1 and S2, no murmurs / rubs / gallops Resp: Clear to auscultation bilaterally, no wheezes / crackles Abd: Soft, nontender, nondistended, well healed Pfannenstiel incision Ext: Warm, well perfused, nontender A/P: 69 y.o. female presents for planned RATLH, BSO, possible PPALN for endometrial adenocarcinoma,FIGO 1. No interval changes in history or physical exam. Will proceed with planned procedure. Interval Note: A copy of this document will be sent to the patient's Primary Care Physician and/or Referring Physician. POORNIMA NAVA MD 03/28/2015 I saw and evaluated the patient with Dr. Nava, and I confirmed the history and physical findingsas outlined, and I agree with the note as written. documented in this encounter Miscellaneous Notes * Plan of Care - Nadia Chandler RN - 03/29/2015 12:28 PM EDT Problem: Hysterectomy (Adult, Obstetrics) Goal: Signs and symptoms of listed potential problems will be absent or manageable (reference (Hysterectomy (Adult, Obstetrics)) CPG) Outcome: Outcome (s) achieved Date Met: 03/29/15 03/29/15 122 Hysterectomy Problems Assessed (Hysterectomy) all Problems Present (Hysterectomy) none Problem: General Plan of Care Goal: Plan of Care Review Outcome: Outcome (s) achieved Date Met: 03/29/15 03/29/15 1225 Coping/Psychosocial Response Interventions Plan of Care Reviewed with patient Plan of Care Review Plan of Care Outcome Status outcome achieved Progress progress toward functional goals as expected OUTCOME EVALUATION NOTE: OUTCOME SUMMARY: Patient is s/p hysterectomy on 03/28. Recovering well. VSS. Out of bed with stand by assistance. Minimal vaginal bleeding. Pain well controlled with Motrin this shift- medicated priorto discharge. PLAN MOVING FORWARD: Discharge home today. Follow up appointment scheduled and information given topatient. Discharge instructions reviewed with patient- verbalized understanding of all discharge plans. Encouraged to call with any questions/concerns. INDIVIDUALIZED FALL PREVENTION: Assistance: Up ad camila with stand by assistance. Supervision: Daughter at bedside- supportive. Surveillance: Purposeful rounding per unit protocol. CPG OUTCOME EVALUATION: Goal: Individualization and Mutuality Outcome: Outcome (s) achieved Date Met: 03/29/15 03/29/15 0803/29/15 1225 Individualization Individualize the Plan of Care: -- s/p hysterectomy care Patient Specific Goals -- home today Patient Specific Interventions -- VS, I/O, discharge teaching Mutuality/Individual Preferences What anxieties, fears or concerns do you have about your health or care? none -- What questions do you have about your health or care? none -- What information would help us give you more personalized care? none -- Goal: Fall Prevention-Safe Patient Handling Outcome: Outcome (s) achieved Date Met: 03/29/15 03/28/15 2250 03/29/15 0320 03/29/15 0741 Musculoskeletal Interventions Activity/Level of Assistance -- -- up in room;ambulated;with walker Positioning -- left side -- Self-Care Promotion -- -- adaptive equipment provided Activity and Safety Assistive Device -- -- Front wheel walker Cadet Fall Risk History of Falling -- -- 0 Secondary Diagnosis -- -- 15 Ambulatory Aids -- -- 0 Intravenous Therapy/Heparin/Saline Lock -- -- 20 Gait/Transferring -- -- 0 Mental Status -- -- 0 Score -- -- 35 OTHER Cadet Fall Risk Med -- -- Goal: Infection Control Outcome: Outcome (s) achieved Date Met: 03/29/15 03/29/15 0741 Safety Interventions Isolation Precautions standard precautions maintained Infection Prevention rest/sleep promoted;promote handwashing;nutrition promoted;hydration promoted;environmental surveillance Coping/Psychosocial Response Interventions Counseling calming techniques promoted;emotional support provided Goal: Discharge Needs Assessment Outcome: Outcome (s) achieved Date Met: 03/29/15 03/29/15339 Discharge Needs Assessment Concerns to be Addressed no discharge needs identified Readmission Within the Last 30 Days no previous admission in last 30 days Equipment Needed After Discharge none Current Health Anticipated Changes Related to Illness none Self-Care Equipment Currently Used at Home none Living Environment Transportation Available none * Plan of Care - Emma Veras RN - 03/29/2015 3:49 AM EDT Problem: Hysterectomy (Adult, Obstetrics) Goal: Signs and symptoms of listed potential problems will be absent or manageable (reference (Hysterectomy (Adult, Obstetrics)) CPG) Outcome: Ongoing (Interventions Implemented as Appropriate) 03/29/15339 Hysterectomy Problems Assessed (Hysterectomy) all Problems Present (Hysterectomy) none Problem: General Plan of Care Goal: Plan of Care Review Outcome: Ongoing (Interventions Implemented as Appropriate) 03/29/15339 Coping/Psychosocial Response Interventions Plan of Care Reviewed with patient Plan of Care Review Plan of Care Outcome Status ongoing (interventions implemented as appropriate) Progress improving OUTCOME EVALUATION NOTE: OUTCOME SUMMARY: Pt VSS. Pt sleeping with Cpap from home with all home settings. Pt able to assist with repositioning and standing at bedside. Pt pain controlled well with oral medications. PLAN MOVING FORWARD: Pt to go home today, family coming to pick her up. Pt aware of and agrees with this plan. INDIVIDUALIZED FALL PREVENTION: Assistance: One person stand by assist Supervision: Call kimbrough within reach Surveillance: Purposeful rounding CPG OUTCOME EVALUATION: Goal: Individualization and Mutuality Outcome: Ongoing (Interventions Implemented as Appropriate) Goal: Fall Prevention-Safe Patient Handling 03/28/15224903/29/15 03203/29/15339 Musculoskeletal Interventions Activity/Level of Assistance -- -- up ad camila Positioning -- left side -- Self-Care Promotion -- -- adaptive equipment provided Activity and Safety Assistive Device -- -- Front wheel walker Cadet Fall Risk History of Falling 0 -- -- Secondary Diagnosis 15 -- -- Ambulatory Aids 0 -- -- Intravenous Therapy/Heparin/Saline Lock 20 -- -- Gait/Transferring 0 -- -- Mental Status 0 -- -- Score 35 -- -- OTHER Cadet Fall Risk Med -- -- Goal: Infection Control Outcome: Ongoing (Interventions Implemented as Appropriate) 03/29/15 034 Safety Interventions Isolation Precautions standard precautions maintained Infection Prevention rest/sleep promoted Coping/Psychosocial Response Interventions Counseling emotional support provided Goal: Discharge Needs Assessment Outcome: Ongoing (Interventions Implemented as Appropriate) 03/29/15339 Discharge Needs Assessment Concerns to be Addressed no discharge needs identified Readmission Within the Last 30 Days no previous admission in last 30 days Equipment Needed After Discharge none Current Health Anticipated Changes Related to Illness none Self-Care Equipment Currently Used at Home none Living Environment Transportation Available none * Op Note - Anthony Johns MD - 03/28/2015 5:48 PM EDT [facility] [place] Patient Name: Myesha Santizo : [id number] MR#: [id number] Case Date: 03/28/2015 Surgeon: Surgeon(s) and Role: * Anthony Johns MD - Primary * Poornima Nava MD - Resident-Surgeon Jorge Luis Anesthesia: General endotracheal. Preoperative Diagnosis: Grade 1 endometrial adenocarcinoma. Postoperative Diagnosis: Grade 1 endometrial adenocarcinoma; final pathology and stage pending. Procedures 1. Total laparoscopic/robotic hysterectomy with bilateral salpingo-oophorectomy. 2. Cystoscopy Specimens removed during surgery: 1. Uterus, cervix, fallopian tubes, and ovaries. Drains: Dowd catheter. Urine Output: 250 mL. Estimated Blood Loss: 150 mL. IV Fluid: 1600 mL of crystalloid. Indication for surgery: This is a 69 y.o. woman who was referred by Goldie Moore MD [address] [place] [address] for a new diagnosis of grade 1 endometrial cancer. She was counseled on the diagnosis, surgical plan and goals, alternatives and risks. She wished to proceed with surgery, and written consent was obtained. Findings 1. Exam under anesthesia: Normal sized uterus, cervix, and ovaries with no evidence of vaginal or cervical metastasis. 2. Laparoscopy: Normal upper abdomen. There were extensive adhesions of the left adnexa, uterus, and sigmoid colon, requiring about 30 minutes of enterolysis and left ureterolysis. No evidence of extrauterine disease, carcinomatosis, or ascites. The ovaries were grossly normal. After the hysterectomy, the uterus was opened off the field and was found to contain a 2.2 cm minimally invasive tumor involving the fundus . Based upon gross examination, there was some concern for a large tumor or deep and/or lower uterine segment involvement, so a frozen section was performed.. 3. Frozen section: Cervix, uterus, tubes and ovaries for frozen section: grade - low; depth of invasion <1/2, TRAV - not invovled, size - 2.5 cm gross estimate 4. Residual disease: No gross residual disease. 5. Cystoscopy: The bladder appeared normal; both ureteral orifices were seen, with strong bilateralurine jets noted. Procedure in Detail: The patient was identified and consent was reaffirmed. She was taken to the operating room and placed in low lithotomy position with stirrups after induction of anesthesia. An exam was conducted and the findings are discussed above. An antiseptic preparation of the abdomen, perineum, and vagina was performed and the patient was sterilely draped. A Dowd catheter was inserted into the bladder. A surgical pause was performed, correctly identifying the intended procedures, antibiotic/heparin administration, etc. for this patient. A 8-mm transverse incision was made 5 cm above the umbilicus, through which a 5-mm Optiview trocar was then inserted under direct visualization, verifying atraumatic entry. Additional 8-mm robotic trocars and a 12-mm right upper quadrant workforce development assistant port were placed in the usual locations without difficulty, under direct visualization. Then, the 5 mm central port was replaced with another 8 mm da Petr robotic port. The patient was placed in steep Trendelenburg position. Pelvic washings were not obtained. Using sharp and electrosurgical dissection, and after placement of a V-Care device into the uterus for manipulation, the ureters were identified. Enterolysis and left ureterolysis were required (30 minutes) to identify the necessary structures. The adnexa were skeletonized and the ovarian vessels were desiccated and divided bilaterally after identification of the ureters bilaterally. The adnexa were then skeletonized adjacent to the cornua. The round ligaments were desiccated and divided bilaterally. Abladder flap was developed to a point over the upper vagina with sharp and electrosurgical dissection. The uterine vessels were then skeletonized, desiccated and divided bilaterally, as were the uterosacral ligaments. The hysterectomy was completed by making a circumferential colpotomy incision over the vaginal cup with monopolar scissor energy, and then the specimen was withdrawn through the vagina and then opened off the field. The specimen findings are discussed above. A pelvic and paraaortic lymphadenectomy was not performed due to finding no large or deeply invasive tumor/lower uterine segment/cervical involvement, and/or high-grade tumor, as described above. After the specimens were removed and irrigation performed, the vaginal cuff was closed in the usualfashion with 0-Vicryl sutures secured at each angle, and a 2- 0 V-Loc 180 suture used to run the center of the cuff. FloSeal was applied to the vaginal cuff and cul-de-sac. Using the 5mm laparoscope, a cystoscopy was performed, and the findings are discussed above. The robot was undocked. The port sites were closed with 4-0 Vicryl sutures. Dermaflex sealant was applied to each site. The patient was returned to a supine position as anesthesia was discontinued. She was then extubated and taken to the PACU in stable condition, and accompanied by the anesthesiologist and surgeons. Dr. Anthony Johns, the attending physician, was present for the entire procedure. Counts: Sharp and sponge counts were correct x two. Complications: none. Antibiotics: 2 gm (s) cefazolin at induction of anesthesia. DVT Prophylaxis: ICD's continuously applied to the lower extremities. Surgical Closure: Primary Closure - closure of ALL tissue levels during the original surgery regardless of wires, wickes, drains, or other devices extruding through the incision Attestation: Case Date: 03/28/2015 I was present and I participated during the entire procedure (does not need to include opening and closing). ANTHONY JOHNS MD 03/28/2015 documented in this encounter Plan of Treatment Upcoming Encounters Date Type Department Care Team (Late st Contact Info) Description 03/21/2024 2:30 PM EDT Office Visit Hematology/Oncology at [address] [phone] Edgar Carreon MD [facility] [place] [address] Kadie Gaming APRN [facility] [place] [address] 05/15/2024 3:30 PM EST Office Visit Radiation Oncology at [address] [phone] Patsy Shelton MD [facility] [place] [address] documented as of this encounter Procedures Procedure Name Priority Date/Time Associated Diagnosis Comments INSTALLER SCAN 03/30/2015 12:00 AM EDT POCT GLUCOSE Routine 03/29/2015 7:46 AM EDT HEMOGRAM Routine 03/29/2015 4:59 AM EDT DIFFERENTIAL, AUTOMATED Routine 03/29/2015 4:59 AM EDT CBC (WITH DIFF) Routine 03/29/2015 4:59 AM EDT BASIC METABOLIC PANEL Routine 03/29/2015 4:59 AM EDT POCT GLUCOSE Routine 03/28/2015 8:38 PM EDT SURGICAL PATHOLOGY REPORT Routine 03/28/2015 4:55 PM EDT SPECIMEN TO PATHOLOGY STAT 03/28/2015 4:53 PM EDT ROBOTIC LAPAROSCOPY,W\BILATE RAL TOTAL PELVIC LYMPHADENECTOMY, PERIAORTIC LYMPH NODE SAMPLING (WRVU 15.6) 03/28/2015 3:13 PM EDT ENDOMETRIAL CANCER ROBOTIC LAPAROSCOPY,TOTAL HYST, UTERUS<250GM, REM TUBE &/OR OVARY (WRVU 15) 03/28/2015 3:13 PM EDT ENDOMETRIAL CANCER POCT GLUCOSE Routine 03/28/2015 2:03 PM EDT documented in this encounter Results * SCAN DOC: INSTALLER (03/30/2015 12:00 AM EDT) Anatomical Region Laterality Modality Other Scanning Provider MEDIA MGR SCAN EXT O RDR/RSLT * POCT Glucose (03/29/2015 7:46 AM EDT) Glucose, POC 125 65 - 199 mg/dL CERNER MILLENNIUM Comment: Supplemental ranges: <140 mg/dL before meals <180 mg/dL all other times of the day Blood specimen (specimen) 03/29/2015 7:46 AM EDT 03/29/2015 7:46 AM EDT Anthony Johns MD POINT OF CARE TEST O RDERABLES CERNER MILLENNIUM * (ABNORMAL) Differential, Automated (03/29/2015 4:59 AM EDT) Neutrophil % 84.6 % CERNER MILLENNIUM Neutrophil Absolute 8.98(H) 1.50 - 6.30 x10(3)/mc L CERNER MILLENNIUM Lymph % 8.2 % CERNER MILLENNIUM Lymphocytes Abs 0.9(L) 1.0 - 3.6 x10(3)/mc L CERNER MILLENNIUM Monocyte % 6.8 % CERNER MILLENNIUM Monocyte Abs 0.7 0.2 - 1.0 x10(3)/mc L CERNER MILLENNIUM Eos % 0.1 % CERNER MILLENNIUM Eosinophils Abs 0.0 0.0 - 0.5 x10(3)/mc L CERNER MILLENNIUM Basophil % 0.1 % CERNER MILLENNIUM Baso Absolute 0.0 0.0 - 0.2 x10(3)/mc L CERNER MILLENNIUM Immature Gran % 0.20 % CERN ER MILLENNIUM Comment: Immature granulocytes(IG's)percentage and absolute count will include metamyelocytes, myelocytes, and promyelocytes. Blood smears from CBCs yielding IG's will be scanned manually for concordance. If this scan disagrees with the automated IG or if promyelocytes are noted, a manual differential will be performed. Immature Gran Absolute 0.02 0.00 - 0.05 x10(3)/mc L CERNER MILLENNIUM Blood specimen (specimen) 03/29/2015 4:59 AM EDT 03/29/2015 5:46 AM EDT Narrative Resulting Agency Comment Spec In Lab Anthony Johns MD HEMATOLOGY ORDERABLE S CERJUAN FERRERAENNIUM * (ABNORMAL) Hemogram (03/29/2015 4:59 AM EDT) White Blood Cell 10.6(H) 4.0 - 10.0 x10(3)/mc L CERNER MILLENNIUM Red Blood Cell 3.63(L) 3.93 - 5.22 x10(6)/mc L CERNER MILLENNIUM Hemoglobin 10.2(L) 11.2 - 15.7 gm/dL CERNER MILLENNIUM Hematocrit 32.2(L) 34.0 - 45.0 % CERNER MILLENNIUM Mean Cell Volume 88.7 79.0 - 94.0 fL CERNER MILLENNIUM Mean Cell Hemoglobin 28.1 26.6 - 32.2 pg CERNER MILLENNIUM Mean Cell Hemoglobin Concentration 31.7(L) 32.0 - 36.5 gm/dL CERNER MILLENNIUM Platelet 168 145 - 370 x10(3)/mc L CERNER MILLENNIUM RDW Standard Deviation 50.1(H) 35.0 - 46.0 fL CERNER MILLENNIUM RDW coefficient of variation 15.4(H) 10.9 - 14.4 % CERNER MILLENNIUM Mean Platelet Volume 11.0 9.0 - 12.0 fL CERNER MILLENNIUM Blood specimen (specimen) 03/29/2015 4:59 AM EDT 03/29/2015 5:46 AM EDT Narrative Resulting Agency Comment Spec In Lab Anthony Johns MD HEMATOLOGY ORDERABLE S CERJUAN MILLENNIUM * (ABNORMAL) Basic Metabolic Panel (non-fasting) (03/29/2015 4:59 AM EDT) Glucose 165 65 - 199 mg/dL CERNER MILLENNIUM Comment:Diabetes: >=200 mg/d L plus symptoms Blood Urea Nitrogen 13 8 - 18 mg/dL CERNER MILLENNIUM Creatinine 1.03 0.70 - 1.20 mg/dL CERNER MILLENNIUM Comment: Please note that the pediatric reference intervals supplied above were not validated at [facility]. Results from pediatric patients should be interpreted [...] MILLENNIUM Est Glomerular Filtration Rate 53(L) >=60 CERNER MILLENNIUM Comment: This estimated GFR (eGFR) value was [...] the following links into your internet browser. [email or web address] Blood specimen (specimen) 03/29/2015 4:59 AM EDT 03/29/2015 5:46 AM EDT Narrative Resulting Agency Comment Spec In Lab Anthony Johns MD CHEMISTRY ORDERABLES [facility] * POCT Glucose (03/28/2015 8:38 PM EDT) Glucose, POC 177 65 - 199 mg/dL CERNER MILLENNIUM Comment: Supplemental ranges: <140 mg/dL before meals <180 mg/dL all other times of the day Blood specimen (specimen) 03/28/2015 8:38 PM EDT 03/28/2015 8:38 PM EDT Anthony Johns MD POINT OF CARE TEST O RDERABLES [facility] * Surgical Pathology Report (03/28/2015 4:55 PM EDT) Final Diagnosis The signing pathologist has (i) examined the relevant preparation(s) for the specimen(s) and (ii) rendered or confirmed the diagnosis(es). Accession Number: [id number] ?Location: BP; BP10; B . ? 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 04/03/15 [facility] 04/03/15 Verified by: ? Shane Galvez MD ?Pathologist ?(Electronic Signature) The attending pathologist whose signature appears on this report has reviewed all diagnostic slides and has edited the gross and/or microscopic portion of the report in rendering the final pathologic diagnosis. INTERPRETATION Block ? Antibody ? Result (Positive/Negative) A-13 ? MLH1 ?Positive, intact nuclear staining ? MSH2 ?Positive, intact nuclear staining ? MSH6 ?Positive, intact nuclear staining ? PMS2 ?Positive, intact nuclear staining Interpretation: Immunostains for MLH1, MSH2, MSH6 and PMS2 reveal intact nuclear staining in tumor cells. ??In a very small percentage of tumors, there may still be an underlying hereditary defect in these DNA mismatch repair genes despite intact nuclear expression of the protein in tumor cells ?? . Genetic counseling and/or additional workup is indicated in patients with a family history that meets current criteria for HNPCC screening. ?Surgical Pathology DIAGNOSIS Specimen type: ?Hysterectomy and bilateral ?salpingo-oophorectomy Histologic type: ?Endometrial carcinoma, endometrioid ?type, associated with polyoid simple to ?complex hyperplasia ?? FIGO grade: ?1 ?Architectural grade: ?1 ?Nuclear grade: ?1-2 Tumor size: ? 2.5 cm Myometrial invasion (no invasion, ??<1/2, > 1/2): ?? < 1/2 ?? Depth of invasion (mm): ?? 1.0 mm ?? Width of myometrium (mm): 17.0 mm Myometrial lymphovascular ?? space invasion: ?Absent Lower uterine segment involvement: ?Absent Cervical involvement: ? Cervix free of tumor Other: ?1. Small intramural leiomyomas ?2. Bilateral benign fallopian tubes ? and ovaries . DIAGNOSIS GYNTMRBLK-ENCA: A13, A14 GYNNRL-ENCA: A5 TNM Staging ??(AJCC, 7th ed., 2009): Primary tumor stage: ?pT1a [IA] (Tumor limited to endometrium or ? invades less than 1/2 of myometrial ? width) Regional lymph nodes: ? pNX ??(Cannot be assessed) Distant metastasis: ? pMX ??(Not applicable or not assessed) CR-0 04/02/15 [facility] 04/02/15 Verified by: ? Lenny HOBBS, Shane Maurice ?Pathologist ?(Electronic Signature) The attending pathologist whose signature appears on this report has reviewed all diagnostic slides and has edited the gross and/or microscopic portion of the report in rendering the final pathologic diagnosis. DISCUSSION Immunohistochemical HNPCC studies are pending and a supplemental report will follow. Scanned slides: [id number] CLINICAL INFORMATION Specimen Submitted: A - Cervix, uterus, tubes and ovaries for frozen section Clinical History: Endometrial cancer Clinical Diagnosis: Same FROZEN SECTION Frozen section(s) performed. ??Please refer to separate electronic frozen section report(s). SPECIMEN PROCESSING A - Labeled/Fixative: Cervix, uterus, tubes and ovaries, fresh. Qty/Size/Weight: Single, 5.0 x 4.0 x 4.0 cm (corpus), 70.0 grams. Specimen Description: Simple hysterectomy consisting of the uterine corpus with attached cervix and attached bilateral adnexa. ??The specimen is received opened along a lateral wall. ENDOMETRIAL TUMOR Size: 2.5 cm. Qualitative Description: Polypoid lesion. Location: Posterior aspect of the endometrial cavity. Myometrial Invasion: Superficially invasive vs. non-invasive. Cervical, Lymphatic, or Vascular invasion: Not identified. UTERUS Endometrium: The 4.0 x 2.5 cm triangular endometrial cavity has a finely granular, red lining; 0.2 cm thick in thickness. ??On the anterior aspect is a 1.5 x 1.5 x 0.9 cm polypoid lesion. Myometrium: Trabecular; 1.5 cm in thickness. Serosa: [place], smooth and glistening. Cervix: 2.5 cm in diameter; unremarkable. . SPECIMEN PROCESSING OVARIES AND FALLOPIAN TUBES Right Ovary ??Size: 2.0 x 1.3 x 1.1 cm. ??Outer Surface: Pale yellow and smooth. ??Cut Surface: Villanueva ovarian stroma. Right Tube: 4.0 x 0.5 cm, intact, fimbriated. Left Ovary ??Size: 2.0 x 1.5 x 0.9 cm. ??Outer Surface: Covered by fibrous adhesions. ??Cut Surface: Villanueva ovarian stroma. Left Tube: 4.0 x 0.5 cm, intact, fimbriated. ??The serosa is surfaced by fibrous adhesions. SECTIONS/PROCESSING: A premium service representative section of the tumor is submitted for frozen section as FS 1. ??A premium service representative section of the TRAV is submitted for frozen sections FS 2. (1) FS 1; (2) FS 2; (3) anterior cervix; (4) posterior cervix; (5-7) anterior TRAV, ink towards corpus; (8-9) posterior TRAV, ink towards corpus; (10-11) anterior polypoid lesion; (12-15) tumor, full thickness; (16) right adnexa; (17) left adnexa. ??(R17) ??sns ?Frozen Section FROZEN SECTION DIAGNOSIS A - Cervix, uterus, tubes and ovaries for frozen section: grade - low, depth of invasion ??<1/2, TRAV - not invovled, size - ??2.5 cm ??gross estimate. 03/28/15 17:27 03/28/15 ??Verified by: ??Taylor Alejandro DO, Pathologist The attending pathologist whose electronic signature appears on this report has reviewed all diagnostic slides in rendering the frozen section diagnosis. This intraoperative consultation should be interpreted as a preliminary diagnosis pending review of the entire specimen and special studies, if any. 04/03/2015 9:11 AM EDT [facility] Uterine Corpus 03/28/2015 4: 55 PM EDT 03/28/2015 4:55 PM EDT Anthony Johns MD PATHOLOGY/CYTOLOGY O JORGE Performing Organization Address [facility] Co de Phone Number LAURE [employer] [facility] [place] [address] * Specimen to Pathology (surgical or derm) (03/28/2015 4:53 PM EDT) AP Specimen 03/28/2015 4:53 PM EDT 03/28/2015 4:53 PM EDT Narrative [facility] - 03/28/2015 4:53 PM EDT Specimen requisition ordered. ??Separate Pathology report to follow Anthony Johns MD PATHOLOGY/CYTOLOGY O JORGE Performing Organization Address [facility] de Phone Number ORIONJUAN [employer] * POCT Glucose (03/28/2015 2:03 PM EDT) Glucose, POC 119 65 - 199 mg/dL [facility] Comment: Supplemental ranges: <140 mg/dL before meals <180 mg/dL all other times of the day Blood specimen (specimen) 03/28/2015 2:03 PM EDT 03/28/2015 2:03 PM EDT Anthony Johns MD POINT OF CARE TEST O JORGE Performing Organization Address [facility] Co de Phone Number ORIONJUAN JAY documented in this encounter Visit Diagnoses Not on filedocumented in this encounter Administered Medications Inactive Administered Medications - up to 3 most recent administrations Medication Order MAR Action Action Date Dose Rate Site BUpivacaine-EPINEPHrine 0.25 %-1:200,000 injection ONCE PRN, Starting on Celina 03/28/15 at 1610, Until Wed03/28/15 at 203, Intra-Operative (Intra-Procedure), Routine Given 03/28/2015 4:10 PM EDT 20 mLs 19- Surgical Site docusate sodium (COLACE) oral liquid 100 mg 100 mg, Oral, 2 TIMES DAILY, First dose on Wed03/28/15 at 2330, Until Discontinued, Routine Given 03/29/2015 8:22 AM EDT 100 mg esomeprazole (NexIUM) capsule 40 mg 40 mg, Oral, DAILY, First dose on Wed03/29/15 at 0900, Until Discontinued, Routine Given 03/29/2015 8:22 AM EDT 40 mg HYDROmorphone (DILAUDID) syringe 0.2-0.4 mg 0.2-0.4 mg, Intravenous, EVERY 5 MIN PRN, Pain, Starting on Wed03/28/15 at 1759, Until Wed03/28/15 at 2033, For moderate pain (4-6) give: 0.2 mg every 5 minute prn For severe pain (7-10) give: 0.4 mg every 5 minutes prn Maximum dose: 4 mg per hour Hold for respiratory rate less than 10 per minute., PACU Recovery Given 03/28/2015 7:44 PM EDT 0.2 mg Given 03/28/2015 7:14 PM EDT 0.4 mg Given 03/28/2015 6:59 PM EDT 0.4 mg ibuprofen (ADVIL;MOTRIN) tablet 600 mg 600 mg, Oral, EVERY 6 HOURS PRN, Starting on Wed03/29/15 at 0600, Until Wed03/29/15 at 1612, Pain, - Begin after ketorolac discontinued., Routine Given 03/29/2015 12:00 PM EDT 600 mg Given 03/29/2015 6:08 AM EDT 600 mg ketorolac (TORADOL) injection 15 mg 15 mg, Intravenous, EVERY 6 HOURS SCHEDULED, 2 doses, First dose on Wed03/28/15 at 1900, Last dose on Wed03/29/15 at 0000, Routine Given 03/29/2015 12:30 AM EDT 1 5 mg Given 03/28/2015 6:54 PM EDT 15 mg lactated ringers infusion 1,000 mL 1,000 mL, at 100 mL/hr, Intravenous, CONTINUOUS, Starting on Wed03/28/15 at 1430, Until Wed03/28/15 at 2034, Day of Surgery (Day of Procedure) New Bag 03/28/2015 5:00 PM EDT New Bag 03/28/2015 2:30 PM EDT 1,000 mLs 100 mL/hr lactated ringers infusion 1,000 mL 1,000 mL, at 100 mL/hr, Intravenous, CONTINUOUS, Starting on Wed03/28/15 at 1815, Until Wed03/28/15 at 2034, PACU Recovery Continued Bag 03/28/2015 8:33 PM EDT 1,000 mLs 100 mL/hr lactated ringers infusion 1,000 mL 1,000 mL, at 100 mL/hr, Intravenous, CONTINUOUS, Starting on Wed03/28/15 at 1900, Until Wed03/29/15 at 0459, Recovery (Recovery-Hospital Unit) [facility] 03/28/2015 8:33 PM EDT 1,000 mLs 100 mL/hr levothyroxine (SYNTHROID) tablet 75 mcg 75 mcg, Oral, DAILY, First dose on Wed03/29/15 at 0600, Until Discontinued, Routine Given 03/29/2015 6:08 AM EDT 75 mcg oxyCODONE (ROXICODONE) immediate release tablet 5 mg 5 mg, Oral, EVERY 4 HOURS PRN, Starting on Wed03/28/15 at 1836, Until Wed03/29/15 at 1612, Pain, Routine Given 03/29/2015 3:20 AM EDT 5 mg sertraline (ZOLOFT) tablet 50 mg 50 mg, Oral, DAILY, First dose on Wed03/29/15 at 0900, Until Discontinued, Routine Given 03/29/2015 8:22 AM EDT 50 mg sodium chloride 0.9 % flush 5 mL 5 mL, Intravenous, 2 TIMES DAILY, First dose on Wed03/28/15 at 2330, Until Discontinued, Recovery (Recovery-Hospital Unit), Routine Given 03/29/2015 8:23 AM EDT 5 mLs documented in this encounter Active and Recently Administered Medications Times are shown in EDT. Scheduled Medication Order 03/27/2015 03/28/2015 03/29/2015 ceFAZolin (ANCEF) 2g in dextrose 5% 50 mL (COMPLETED) 2 g, Intravenous, ONCE, 1 dose, On Celina 03/28/15 at 1430, Administer over 30 Minutes, Redose every 3 hours if CrCl is greater than 20. Redose every 8 hours if CrCl is less than 20., Day of Surgery (Day of Procedure), Indication for (Active or Suspected): Prophylaxis 1533 (Given - Provider: Parviz Mccall) docusate sodium (COLACE) oral liquid 100 mg (CANCELED)(Linked Group 1) 100 mg, Oral, 2 TIMES DAILY, First dose on Celina 03/28/15 at 2330, Until Discontinued, Routine 233 (Not Given - Provider: Emma Veras, BRANDON - Reason: Patient/family refused) 08 (Given - Provider: Nadia Chandler RN) esomeprazole (NexIUM) capsule 40 mg (CANCELED) 40 mg, Oral, DAILY, First dose on Wed03/29/15 at 0900, Until Discontinued, Routine 08 (Given - Provid er: Nadia Chandler RN) ketorolac (TORADOL) injection 15 mg (COMPLETED)(Linked Group 2) 15 mg, Intravenous, EVERY 6 HOURS SCHEDULED, 2 doses, First dose on Celina 03/28/15 at 1900, Last dose on Wed03/29/15 at 0000, Routine 1854 (Given - Provider: Sophie Rosario RN) 0030 (Given - Provider: Emma Veras, BRANDON) levothyroxine (SYNTHROID) tablet 75 mcg (CANCELED) 75 mcg, Oral, DAILY, First dose on Wed03/29/15 at 0600, Until Discontinued, Routine 0608 (Given - Provid er: Emma Veras RN) sertraline (ZOLOFT) tablet 50 mg (CANCELED) 50 mg, Oral, DAILY, First dose on Wed03/29/15 at 0900, Until Discontinued, Routine 0822 (Given - Provid er: Nadia Chandler RN) sodium chloride 0.9 % flush 5 mL (CANCELED) 5 mL, Intravenous, 2 TIMES DAILY, First dose on Celina 03/28/15 at 2330, Until Discontinued, Recovery (Recovery-Hospital Unit), Routine 233 (Due) 0823 (Given - Provider: Nadia Chandler RN) Continuous Medication Order 03/27/2015 03/28/2015 03/29/2015 lactated ringers infusion 1,000 mL (CANCELED) 1,000 mL, at 100 mL/hr, Intravenous, CONTINUOUS, Starting on Celina 03/28/15 at 1430, Until Celina 03/28/15 at 2033, Day of Surgery (Day of Procedure) 1430 (New Bag - Provider: Kadie Isabel RN - Comment: did not hang, up already)1554 (Anesthesia Volume Adjustment - Provider: Parviz Mccall)1659 (Anesthesia Volume Adjustment - Provider: Aldo Del Toro CRNA)1700 (New Bag - Provider: Aldo Del Toro CRNA)1752 (Stopped - Provider: Andres Stafford CRNA) lactated ringers infusion 1,000 mL (CANCELED) 1,000 mL, at 100 mL/hr, Intravenous, CONTINUOUS, Starting on Celina 03/28/15 at 1815, Until Wed03/28/15 at 2033, PACU Recovery 2032 (Continued Bag - Provid er: Sophie Rosario RN) lactated ringers infusion 1,000 mL () 1,000 mL, at 100 mL/hr, Intravenous, CONTINUOUS, Starting on Wed03/28/15 at 1900, Until Wed03/29/15 at 0459, Recovery (Recovery-Hospital Unit) 2032 (New Bag - Provider: Sophie Rosario RN) PRN Medication Order 03/27/2015 03/28/2015 03/29/2015 BUpivacaine-EPINEPHrine 0.25 %-1:200,000 injection (CANCELED) ONCE PRN, Starting on Celina 03/28/15 at 1610, Until Celina 03/28/15 at 2033, Intra-Operative (Intra-Procedure), Routine 1610 (Given - Provider: Anthony Johns MD) HYDROmorphone (DILAUDID) syringe 0.2-0.4 mg (CANCELED) 0.2-0.4 mg, Intravenous, EVERY 5 MIN PRN, Pain, Starting on Celina 03/28/15 at 1759, Until Wed03/28/15 at 2033, For moderate pain (4-6) give: 0.2 mg every 5 minute prn For severe pain (7-10) give: 0.4 mg every 5 minutes prn Maximum dose: 4 mg per hour Hold for respiratory rate less than 10 per minute., PACU Recovery 1858 (Given - Provider: Sophie Rosario, BRANDON)1913 (Given - Provider: Sophie Rosario, BRANDON)1943 (Given - Provider: Sophie Rosario RN) ibuprofen (ADVIL;MOTRIN) tablet 600 mg(Linked Group 2) 600 mg, Oral, EVERY 6 HOURS PRN, Starting on Wed03/29/15 at 0600, Until Wed03/29/15 at 1612, Pain, - Begin after ketorolac discontinued., Routine 0608 (Given - Provid er: Emma Veras RN)1200 (Given - Provider: Nadia Chandler RN) oxyCODONE (ROXICODONE) immediate release tablet 5 mg 5 mg, Oral, EVERY 4 HOURS PRN, Starting on Wed03/28/15 at 1836, Until Wed03/29/15 at 1612, Pain, Routine 0320 (Given - Provid er: Emma Veras RN) Linked Groups Order Group 1: docusate sodium (COLACE) oral liquid 100 mg (CANCELED)Jump to med 100 mg, Oral, 2 TIMES DAILY, First dose on Wed03/28/15 at 2330, Until Discontinued, Routine And sennosides (SENOKOT) 8.8 mg/5 mL oral syrup 17.6 mg (CANCELED) 17.6 mg, Oral, 2 TIMES DAILY, First dose on Wed03/28/15 at 2330, Until Discontinued, Routine Group 2: ketorolac (TORADOL) injection 15 mg (COMPLETED)Jump to med 15 mg, Intravenous, EVERY 6 HOURS SCHEDULED, 2 doses, First dose on Wed03/28/15 at 1900, Last dose on Wed03/29/15 at 0000, Routine Followed by ibuprofen (ADVIL;MOTRIN) tablet 600 mgJump to med 600 mg, Oral, EVERY 6 HOURS PRN, Starting on Wed03/29/15 at 0600, Until Wed03/29/15 at 1612, Pain, - Begin after ketorolac discontinued., Routine documented in this encounter Care Teams Facilities Maintenance Technician Relationship Specialty Start Date End Date Maya Gambino MD [address] [place] [address] PCP - General 05/27/10 01/23/19 documented as of this encounter
--- OUTSIDE RECORDS SUMMARY | 2024-02-29 01:30 | XMS_ITS | Encounter Summary ---
Author Organization [facility] Address [facility] [address] [place] [address] Care Team Providers Care Bobbin Stripper Name Role Phone Navid Avendaño MD Primary Care Provider [phone] Reason for Visit * Reason Comments On Treatment Visit Encounter Details Date Type Department Care Team (Late st Contact Info) Description 04/04/2019 9:30 AM EDT Office Visit Radiation Oncology at [address] [phone] Patsy Shelton MD [facility] [place] [address] Malignant neoplasm of lower-inner quadrant of left female breast, unspecified estrogen receptor status Social History Tobacco Use Types Packs/Day Years [...] Sign Reading Time Taken Comments Blood Pressure 136/61 04/04/2019 9:45 AM EDT Pulse 77 04/04/2019 9:45 AM EDT Temperature 36.8 ??C (98.2 ??F) 04/04/2019 9 :45 AM EDT Respiratory Rate 16 04/04/2019 9:45 AM EDT Oxygen Saturation 99% 04/04/2019 9:4 5 AM EDT Inhaled Oxygen Concentration - - Weight 105.1 kg (231 lb 9.6 oz) 019 9:45 AM EDT with shoes Height - - Body Mass Index 45.23 03/21/2019 11:04 AM EDT documented in this encounter Progress Notes * Patsy Shelton MD - 04/04/2019 9:30 AM EDT Images from the original note were not included. 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 S/p 1 cycle docetaxel/cyclophosphamide followed by discontinuation of chemo after infusion rxn to 2nd cycle. CURRENT TREATMENT DOSE: 4 Gy L supraclav, L axilla, L chest wall ANTICIPATED TOTAL DOSE: 50 Gy L supraclav, L axilla, L chest wall; 60 Gy mastectomy scar boost. Current # of xrt received: 2 Anticipated total # of xrt txs: 25 L supraclav, L axilla, L chest wall; 30 mastectomy scar boost Evaluation of port verification films: Approved. For details, see electronic film record in [employer]. Changes in Medical Condition: None. Pain?: No. Your Medications Accurate as of April 04, 2019 3:50 PM. If you have any questions, ask your nurse or doctor. Continued medications with new dosing Dose Details PriLOSEC 20 mg Cpdr 20mg, PO, Once daily Generic drug: omeprazole What changed: ?? how much to take ?? how to take this ?? when to take this Refills: 0 senna-docusate 8.6-50 mg Tab Commonly known as: PERICOLACE Take 1 tablet by mouth daily. What changed: when to take this 1 tablet Quantity: 60 tablet Refills: 0 Continued medications, unchanged Dose Details acetaminophen 500 mg Tab Commonly known as: TYLENOL As needed Refills: 0 aspirin 81 mg Tbec every other day. Refills: 0 CALCIUM MAGNESIUM 500 mg calcium [...] 2 hours before a treatment. Refills: 0 DAILY MULTIPLE Tab Generic drug: multivitamin Refills: 0 ibuprofen 600 mg Tab Commonly known as: ADVIL;MOTRIN Take 1 tablet by mouth every 6 hours as needed for Pain. 600 mg Quantity: 30 tablet Refills: 0 IRON ORAL Take by mouth. Refills: 0 lisinopril 10 mg Tab Commonly known as: PRINIVIL;ZESTRIL Daily Refills: 0 LORazepam 1 mg Tab Commonly known as: ATIVAN nightly as needed. Once Refills: 0 metFORMIN 500 mg Tab Commonly known as: GLUCOPHAGE Twice a day Refills: 0 pravastatin 20 mg Tab Commonly known as: PRAVACHOL Refills: 0 prochlorperazine 10 mg Tab Commonly known as: COMPAZINE Take 1 tablet by mouth every 6 hours as needed for Nausea. 10 mg Quantity: 15 tablet Refills: 3 rOPINIRole 2 mg Tab Commonly known as: REQUIP Take 2 mg by mouth nightly. 2 mg Refills: 0 sertraline 50 mg Tab Commonly known as: ZOLOFT 100 mg. Daily 100 mg Refills: 0 SYNTHROID 75 mcg Tab 75mcg, PO, Once daily Generic drug: levothyroxine Refills: 0 vitamin E 400 unit Cap Daily Refills: 0 Physical Exam: BP 136/61 (Patient Position: Sitting) Pulse 77 Temp 36.8 ??C (98.2 ??F) (Oral) Resp 16 Wt 105.1 kg (231 lb 9.6 oz) Comment: with shoes SpO2 99% BMI 45.23 kg/m?? A&Ox3, NAD. Amb stable. Imagin03/21/19 Dx'ic Rad Interp CTsim: Left mastectomy changes. Mild enlargement of the spleen. Coronary artery atherosclerotic disease. ?? Performance Status: KPS 80%. Response to xrt: As expected. Irradiation Related Symptoms: None. Treatment for Symptom Control: Adria's cream. Pain Management: Not needed. Recommendation on Continuing Course of xrt: Cont. documented in this encounter Plan of Treatment Upcoming Encounters Date Type Department Care Team (Late st Contact Info) Description 03/21/2024 2:30 PM EDT Office Visit Hematology/Oncology at [address] [phone] Edgar Carroen MD [facility] [place] [address] Kadie Gaming APRN [facility] [place] [address] 05/15/2024 3:30 PM EST Office Visit Radiation Oncology at [address] [phone] Patsy Shelton MD [facility] [place] [address] documented as of this encounter Visit Diagnoses Diagnosis Malignant neoplasm of lower-inner quadrant of left female breast, unspecified estrogen receptor status documented in this encounter Care Teams Bobbin Stripper Relationship Specialty Start Date End Date Navid Avendaño MD [address] [place] [address] PCP - General Family Medicine 01/24/19 documented as of this encounter
--- OUTSIDE RECORDS SUMMARY | 2024-02-29 01:30 | XMS_ITS | Encounter Summary ---
Author Organization [facility] Address [facility] [address] [place] [address] Care Team Providers Care Oracle Programmer Name Role Phone Navid Avendaño MD Primary Care Provider [phone] [phone] Encounter Details Date Type Department Care Team (Late st Contact Info) Description 03/21/2019 10:30 AM EDT Office Visit Hematology/Oncology at [address] [phone] Edgar Carreon MD [facility] [address] [place] [address] Breast cancer, stage 2, left (Primary Dx); 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; H/O syncope Social History Tobacco Use Types Packs/Day Years [...] Sign Reading Time Taken Comments Blood Pressure 143/62 03/21/2019 11:04 AM EDT Pulse 93 03/21/2019 11:04 AM EDT Temperature 36.8 ??C (98.2 ??F) 03/21/2019 11:04 AM E DT Respiratory Rate 16 03/21/2019 11:04 AM EDT Oxygen Saturation 97% 03/21/2019 11:04 AM EDT Inhaled Oxygen Concentration - - Weight 104.8 kg (231 lb) 03/21/2019 11:04 AM EDT Height 152.4 cm (5') 03/21/2019 11:04 AM EDT Body Mass Index 45.11 03/21/2019 11:04 AM EDT documented in this encounter Progress Notes * Edgar Carreon MD - 03/21/2019 10:30 AM EDT Images from the original note were not included. 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 Postop coursewas uneventful. Interval history: Ms. Santizo is in clinic for follow-up appointment on breast cancer. During the second infusion of docetaxel a week ago she developed syncopal episodes with low blood pressure and hypoxia. She was admitted to the hospital where found to have UTI with ceftriaxone. Here CT of the chest was negative she was discharged on March 16. Today she feels better. Denies any pain. Still feels intermittently lightheaded. She is going to see her primary care doctor this week. No fever or chills. PMH: Syncopal episode on March 14 and admission [...] file Gets together: Not on file Attends sikhism service: Not on file Active member of [...] Medications: Your Medications Accurate as of March 21, 2019 11:14 AM. If you have any questions, ask [...] axillary nodes normal Neurologic: Normal Vitals BP 143/62 (Patient Position: Sitting) Pulse 93 Temp 36.8 ??C (98.2 ??F) (Oral) Resp 16 Ht 152.4 cm (5') Wt 104.8 kg (231 lb) SpO2 97% BMI 45.11 kg/m?? Pathology: Oncotype DX breast recurrence score for my comments and not +1-3: 29 corresponded to distant recurrence risk at 9 years of 23%. Tamoxifen alone A ??- Outside slide(s) labeled [id number], collection date 11/11/2018. 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 On submitted slides (reviewed) - ER immunoreactivity: Positive (>90% cancer cells with immunostaining) Stain intensity: Intermediate and Strong MN immunoreactivity: Positive (>90% cancer cells with immunostaining) Stain intensity: Strong HER2 IHC - Per report, 1+/Negative B ??- Outside slide(s) labeled [id number], collection date 12/07/2018. 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 - Ductal carcinoma in-situ (DCIS), high grade with comedonecrosis. - See Synoptic report. B - Lymph node, [place] #1, left axillary, excision (4 slides labeled B)- - Metastatic carcinoma to one of two lymph nodes. - The anita metastasis measures 1.9 cm. - Extranodal invasion is present. 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 C - Lymph node, left axilla, excision (3 slides labeled C)- - One benign node. D - Lymph node, [place] #2, left axillary, excision (1 slide labeled D)- - One benign node. E - Lymph node, [place] #3, left axillary, excision (2 slides labeled [...] Lymph Nodes Examined: ?6 ? Number of [place] Nodes Examined: ?5 Pathologic Stage Classification (pTNM, AJCC 8th Edition) ?Primary Tumor (Invasive Carcinoma) (pT): ?pT2 ?Regional Lymph Nodes (pN) ? Category (pN): ?? pN1a Labs: 10/20/2018 WBC 7.46, hemoglobin 11.5, platelet count 197 hemoglobin A1c 6.9 Imagin03/14/2019 CTA of chest: No pleural effusion. No pulmonary consolidation. No pulmonary embolism. No mediastinal hilar adenopathy. 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 Santizo has new diagnosis of breast cancer with 2 lymph nodes positive for carcinoma one is macromet and the other one - isolated cancer cells. Based on Cancermath.net calculator she has 31.5% 15-year cancer related mortality with no adjuvant treatment. With 4 cycles of TC chemotherapy 15-year cancer related mortality is 23.3%. Restaging of aromatase inhibitors to treatment regimen 15- year cancer related mortality is downto 15.9%. We talked about chemotherapy TC and [...] 5-10 years. She is interested to proceed. Oncotype DX testing showed recurrence score of 29 corresponding to distant recurrence risk at 9 years of 23% on tamoxifen alone Patient is developed syncopal episode with hypotension and hypoxia during second infusion of docetaxel. She was sent to the emergency room and admitted to the hospital. She was treated for UTI, dehydration. CT scan was negative for pulmonary embolism. Today she feels better but still intermittentlylightheaded. As I cannot exclude Grade 4 reaction to docetaxel I recommended to discontinue chemotherapy and consider adjuvant radiation therapy followed by 5-10 years of hormonal treatment. She is going to see aradiation oncologist Dr. Shelton today. I will see her back in 2 weeks after completion of radiation unless she declined radiation then I will see her in 3 weeks from now Plan 1. F/u with radiation oncology 2. D/c chemotherapy 3. Next visit with CBC and CMP in 2 weeks after completion of radiation documented in this encounter Plan of Treatment Upcoming Encounters Date Type Department Care Team (Late st Contact Info) Description 03/21/2024 2:30 PM EDT Office Visit Hematology/Oncology at [address] [phone] Edgar Carreon MD [facility] [place] [address] Kadie Gaming APRN [facility] [place] [address] 05/15/2024 3:30 PM EST Office Visit Radiation Oncology at [address] [phone] Patsy Shelton MD [facility] [place] [address] documented as of this encounter Visit Diagnoses Diagnosis Breast cancer, stage 2, left- Primary 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 H/O syncope Personal history of other specified diseases documented in this encounter Care Teams Oracle Programmer Relationship Specialty Start Date End Date Navid Avendaño MD [address] [place] [address] PCP - General Family Medicine 01/24/19 documented as of this encounter
--- OUTSIDE RECORDS SUMMARY | 2024-02-29 01:30 | XMS_ITS | Encounter Summary ---
Author Organization [facility] [address] [place] [address] Care Team Providers Care Passenger Service Representative Name Role Phone Navid Avendaño MD Primary Care Provider [phone] [phone] Reason for Visit * Reason Onset Date Comments Other 03/02/2019 Encounter Details Date Type Department Care Team (Late st Contact Info) Description 03/02/2019 Telephone Hematology/Oncology at [address] [phone] Penny Chew RN Other Social History Tobacco Use Types Packs/Day Years [...] Miscellaneous Notes * Telephone Encounter - Penny Chwe, RN - 03/02/2019 10:50 AM EDT Pt called and wanted to make sure it was OK for her to paint her baseboards with latex paint outside. I told her fine she is in well ventilated area so no issues. She also asks if she can have ultra sound for possible hernia. I told her that was fine also. Monika Rossi ORACLE ERP ARCHITECT updated and if she wants pt to do anything different I will call pt back and let her know. Pt agrees with plan. Pt called returning call from 02/23/19. She states she had a hard time with onpro it did not go off till 630 pm and took over an hour to go in. Then it was stuck so bad when she took it off she had a bruise. She would prefer shot the next day vs a patch. She also states she felt sick after that withnausea and diarrhea. She was better by Wednesday. I told her I would let Monika Rossi ORACLE ERP ARCHITECT know all this. documented in this encounter Plan of Treatment Upcoming Encounters Date Type Department Care Team (Late st Contact Info) Description 03/21/2024 2:30 PM EDT Office Visit Hematology/Oncology at [address] [phone] Edgar Carreon MD [facility] HEMATOLOGY [place] [address] Kadie Gaming APRN [facility] [place] [address] 05/15/2024 3:30 PM EST Office Visit Radiation Oncology at [address] [phone] Patsy Shelton MD [facility] [place] [address] documented as of this encounter Visit Diagnoses Not on filedocumented in this encounter Care Teams Passenger Service Representative Relationship Specialty Start Date End Date Navid Avendaño MD [address] [place] [address] PCP - General Family Medicine 01/24/19 documented as of this encounter
--- OUTSIDE RECORDS SUMMARY | 2024-02-29 01:30 | XMS_ITS | Encounter Summary ---
Author Organization [facility] Address [facility] [address] [place] [address] Care Team Providers Care Associate Pastor Name Role Phone Navid Avendaño MD Primary Care Provider [phone] [phone] Reason for Visit * Reason Onset Date Comments Follow-up 02/23/2019 Encounter Details Date Type Department Care Team (Late Contact Info) Description 02/23/2019 Telephone Hematology/Oncology at [address] [phone] Penny Chew RN Follow-up Social History Tobacco Use Types Packs/Day Years [...] Telephone Encounter - Penny Chew RN - 02/23/2019 12:46 PM EDT Left message for her to return my call to see how things went with onpro and how she is feeling today documented in this encounter Plan of Treatment Upcoming Encounters Date Type Department Care Team (Late Contact Info) Description 03/21/2024 2:30 PM EDT Office Visit Hematology/Oncology at [address] [phone] Edgar Carreon MD [facility] DR [place] [address] Kadie Gaming APRN [facility] [place] [address] 05/15/2024 3:30 PM EST Office Visit Radiation Oncology at [address] [phone] Patsy Shelton MD [facility] [address] documented as of this encounter Visit Diagnoses Not on filedocumented in this encounter Care Teams Associate Pastor Relationship Specialty Start Date End Date Navid Avendaño MD [address] [place] [address] [address] [place] [address] PCP - General Family Medicine 01/24/19 documented as of this encounter
--- OUTSIDE RECORDS SUMMARY | 2024-02-29 01:30 | XMS_ITS | Encounter Summary ---
Author Organization [facility] Address [facility] [address] [place] [address] Care Team Providers Care Fuel Technician Name Role Phone Navid Avendaño MD Primary Care Provider [phone] Reason for Visit * Reason Comments On Treatment Visit Encounter Details Date Type Department Care Team (Late st Contact Info) Description 05/09/2019 9:30 AM EST Office Visit Radiation Oncology at [address] [phone] Patsy Shelton MD [facility] [place] [address] Malignant neoplasm of lower-inner quadrant of left [...] Sign Reading Time Taken Comments Blood Pressure 140/63 05/09/2019 9:25 AM EST Pulse 87 05/09/2019 9:25 AM EST Temperature 36.9 ??C (98.4 ??F) 05/09/2019 9 :25 AM EST Respiratory Rate 16 05/09/2019 9:25 AM EST Oxygen Saturation 97% 05/09/2019 9:2 5 AM EST Inhaled Oxygen Concentration - - Weight 106.1 kg (233 lb 12. 8 oz) 05/09/2019 9:25 AM EST with shoes Height - - Body Mass Index 45.66 03/21/2019 11:04 AM EDT documented in this encounter Patient Instructions * Patient Instructions* Patsy Shelton MD - 05/09/2019 9:30 AM EST Your last radiotherapy will be on M., 05/15/19. Please continue the mepilex-lite. Try the saline soaks &/or aloe on the area. When the irradiated area feels better, resume opal's cream or skintegrity to the area. Please do not use a straight/regular razor on your left underarm. An electric razor is ok. Please do not expose the irradiated area to sun. Please do not expose irradiated area to chlorinated water. Saltwater or freshwater is ok. Please do not expose irradiated area to hot tub water. Hot bath/shower ok. Continue baking soda & salt rinse until the mouth sore heals. We will mail you a letter with an appointment for followup with me in 1-2 months. You may resume vitamin E the day after the last radiotherapy. documented in this encounter Progress Notes * Patsy Shelton MD - 05/09/2019 9:30 AM EST Images from the original note were not included. 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 S/p 1 cycle docetaxel/cyclophosphamide followed by discontinuation of chemo after infusion rxn to 2nd cycle. CURRENT TREATMENT DOSE: 50 Gy L supraclav, L axilla, L chest wall; 52 Gy mastectomy scar boost ANTICIPATED TOTAL DOSE: 50 Gy L supraclav, L axilla, L chest wall; 60 Gy mastectomy scar boost Current # of xrt received: 25 L supraclav, L axilla, L chest wall; 26 mastectomy scar boost Anticipated total # of xrt txs: 25 L supraclav, L axilla, L chest wall; 30 mastectomy scar boost Evaluation of port verification films: Approved. For details, see electronic film record in [employer]. Changes in Medical Condition: Increased sensitivity of irrad'd skin; silvadene & opal's burn area, skintegrity makes area too tight, aquaphor too thick; applies mepilex-lite to area. Has been using baking soda & salt mouth rinse & notes decreased soreness on lower gum; past h/o cold sores. Pain?: See above. Your Medications Accurate as of May 09, 2019 9:35 AM. If you have any questions, ask [...] 2-4 g/day. Quantity: 400 g Refills: 0 SYNTHROID 75 mcg Tab 75mcg, PO, Once daily Generic drug: levothyroxine Refills: 0 vitamin E 400 unit Cap Daily Refills: 0 Physical Exam: 140/63 233 lbs 87 SpO2 97% 98.4 F 16 A&Ox3, NAD. Intraoral exam shows 0.3 cm superficial ulcer anterior inferior gingiva, consistent w/viral etiology. Brisk erythema irrad'd area, skin intact. Amb stable w/cane. Imagin03/21/19 Dx'ic Rad Interp CTsim: Left mastectomy changes. Mild enlargement of the spleen. Coronary artery atherosclerotic disease. ?? Performance Status: KPS 80%. Response to xrt: As expected. Irradiation Related Symptoms: Pharyngitis/esophagitis. Skin changes. Treatment for Symptom Control: Baking soda & salt rinse mouth rinse/gargle TID, avoid hot liqs/solids & avoid solids more difficult to swallow, eat softer solids. Stop silvadene, opal's cream, skintegrity. Continue mepilex-lite. Try saline & gauze soaks. Try aloe on irrad'd area. Pain Management: Tylenol arthritis tab prior to xrt. Recommendation on Continuing Course of xrt: Cont. Completes xrt 05/15/19. Care of irrad'd area discussed. May resume vit E day after last xrt. Rtc 1-[address] Carreon 05/30/19. documented in this encounter Plan of Treatment Upcoming Encounters Date Type Department Care Team (Late st Contact Info) Description 03/21/2024 2:30 PM EDT Office Visit Hematology/Oncology at [address] [phone] Edgar Carreon MD [facility] [place] [address] Kadie Gaming APRN [facility] [place] [address] 05/15/2024 3:30 PM EST Office Visit Radiation Oncology at [address] [phone] Patsy Shelton MD [facility] [place] [address] documented as of this encounter Visit Diagnoses Diagnosis Malignant neoplasm of lower-inner quadrant of left female breast, unspecified estrogen receptor status documented in this encounter Care Teams Fuel Technician Relationship Specialty Start Date End Date Navid Avendaño MD [address] [place] [address] PCP - General Family Medicine 01/24/19 documented as of this encounter
--- OUTSIDE RECORDS SUMMARY | 2024-02-29 01:30 | XMS_ITS | Encounter Summary ---
Author Organization [facility] Address [facility] [address] [address] Care Team Providers Care Field Attendant Name Role Phone Navid Avendaño MD Primary Care Provider [phone] Reason for Visit * Reason Comments On Treatment Visit Encounter Details Date Type Department Care Team (Late st Contact Info) Description 04/11/2019 9:30 AM EDT Office Visit Radiation Oncology at [address] [phone] Patsy Shelton MD [facility] [place] [address] Malignant neoplasm of lower-inner quadrant of left [...] Taken Comments Blood Pressure - - Pulse 82 04/11/2019 9:16 AM EDT Temperature 36.5 ??C (97.7 ??F) 04/11/2019 9 :16 AM EDT Respiratory Rate 16 04/11/2019 9:16 AM EDT Oxygen Saturation 98% 04/11/2019 9:1 6 AM EDT Inhaled Oxygen Concentration - - Weight 105.1 kg (231 lb 12. 8 oz) 04/11/2019 9:16 AM EDT with shoes Height - - Body Mass Index 45.27 03/21/2019 11:04 AM EDT documented in this encounter Progress Notes * Patsy Shelton MD - 04/11/2019 9:30 AM EDT Images from the original note were not included. 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 S/p 1 cycle docetaxel/cyclophosphamide followed by discontinuation of chemo after infusion rxn to 2nd cycle. CURRENT TREATMENT DOSE: 14 Gy L supraclav, L axilla, L chest wall ANTICIPATED TOTAL DOSE: 50 Gy L supraclav, L axilla, L chest wall; 60 Gy mastectomy scar boost. Current # of xrt received: 7 L supraclav, L axilla, L chest wall Anticipated total # of xrt txs: 25 L supraclav, L axilla, L chest wall; 30 mastectomy scar boost Evaluation of port verification films: Approved. For details, see electronic film record in [employer]. Changes in Medical Condition: R elbow pain which she relates to position of R arm on xrt tx table. Dry areas on scalp, for which she applies baby oil. Irrad'd area w/o problem. Pain?: See above. Your Medications Accurate as of April 11, 2019 9:26 AM. If you have any questions, ask [...] unit Cap Daily Refills: 0 Physical Exam: Pulse 82 Temp 36.5 ??C (97.7 ??F) (Temporal) Resp 16 Wt 105.1 kg (231 lb 12.8 oz) Comment: with shoes SpO2 98% BMI 45.27 kg/m?? A&Ox3, NAD. Minimal erythema irrad'd area.R elbow tenderness in medial joint, exacerbated by palpation of area. A few < 1 cm mildly erythematous dry areas on scalp. Amb stable w/cane. Imagin03/21/19 Dx'ic Rad Interp CTsim: Left mastectomy changes. Mild enlargement of the spleen. Coronary artery atherosclerotic disease. ?? Performance Status: KPS 80%. Response to xrt: As expected. Irradiation Related Symptoms: R elbow discomfort from arm position on xrt tx table. Skin changes. Treatment for Symptom Control: Adria's cream. Pain Management: She will take a tylenol arthritis tab prior to xrt. Recommendation on Continuing Course of xrt: Cont. Baby oil ok for dry areas on scalp. documented in this encounter Plan of Treatment Upcoming Encounters Date Type Department Care Team (Late st Contact Info) Description 03/21/2024 2:30 PM EDT Office Visit Hematology/Oncology at [address] [phone] Edgar Carreon MD [facility] DR HEMATOLOGY [place] [address] Kadie Gaming APRN [facility] [place] [address] 05/15/2024 3:30 PM EST Office Visit Radiation Oncology at [address] [phone] Patsy Shelton MD [facility] [place] [address] documented as of this encounter Visit Diagnoses Diagnosis Malignant neoplasm of lower-inner quadrant of left female breast, unspecified estrogen receptor status documented in this encounter Care Teams Field Attendant Relationship Specialty Start Date End Date Navid Avendaño MD [address] [place] [address] PCP - General Family Medicine 01/24/19 documented as of this encounter
--- OUTSIDE RECORDS SUMMARY | 2024-02-29 01:30 | XMS_ITS | Encounter Summary ---
Author Organization [facility] [place] [address] Care Team Providers Care Paraprofessional Education Assistant Name Role Phone Navid Avendaño MD Primary Care Provider [phone] [phone] Encounter Details Date Type Department Care Team (Late st Contact Info) Description 02/21/2019 10:30 AM EDT Office Visit Hematology/Oncology at [address] [phone] Ivana Rossi APRN [address] [place] [address] Endometrial adenocarcinoma Social History Tobacco Use Types Packs/Day Years [...] Sign Reading Time Taken Comments Blood Pressure 139/64 02/21/2019 10:31 AM EDT Pulse 77 02/21/2019 10:31 AM EDT Temperature 36.7 ??C (98.1 ??F) 02/21/2019 10:31 AM E DT Respiratory Rate 18 02/21/2019 10:31 AM EDT Oxygen Saturation 97% 02/21/2019 10:31 AM EDT Inhaled Oxygen Concentration - - Weight 106.6 kg (235 lb) 02/21/2019 10:31 AM EDT Height 152.4 cm (5') 02/21/2019 10:31 AM EDT Body Mass Index 45.9 02/21/2019 10:31 AM EDT documented in this encounter Progress Notes * Ivana Rossi APRN - 02/21/2019 10:30 AM EDT Subjective: Patient ID: Myesha Santizo is a 73 y.o. female. 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.gr3, LVI-, marilynn neg, ER+/ID+, Her2 IHC neg, LN 2/6, DCIS, [id number] (stage IIA) HPI: Myesha Burdicksis referred by Dr. Bedolla for consultation on [...] on December 07, 2018. Postop course wasuneventful. Interim History: Myesha Santizo comes into clinic today accompanied by her daughter. She is here for chemotherapy teaching, labs and to be evaluated to start therapy with Docetaxel and Cytoxan every 3 weeks. She reports discomfort in her hips, left breast and axillary area and occasional swelling. She takes extra strength Tylenol which helps. She is anxious about starting chemotherapy today. Dr. Carreon explained the score of 29 from the Oncotype- DX results to the patient. She denies fever, chills, night sweats or unusual bleeding. PMH, PSH, FH, and SH: Except as mentioned in the interim history, unchanged since last office visit. Review of Systems Constitutional: Positive for diaphoresis. HENT: Negative. Eyes: Negative. Respiratory: Negative. Cardiovascular: Negative. Gastrointestinal: Negative. Endocrine: Negative. Genitourinary: Negative. Musculoskeletal: Negative. Skin: Negative. Neurological: Negative. Hematological: Negative. Psychiatric/Behavioral: Negative. Objective: Physical Exam Constitutional: She is oriented to person, place, and time. She appears well- developed and well-nourished. HENT: Head: Normocephalic and atraumatic. Nose: Nose normal. Mouth/Throat: Oropharynx is clear and moist. Eyes: Conjunctivae and EOM are normal. Neck: Normal range of motion. Neck supple. Cardiovascular: Normal rate and regular rhythm. Pulmonary/Chest: Effort normal and breath sounds normal. Abdominal: Soft. Bowel sounds are normal. Musculoskeletal: Normal range of motion. Neurological: She is alert and oriented to person, place, and time. Skin: Skin is warm and dry. Psychiatric: She has a normal mood and affect. Her behavior is normal. Vitals reviewed. Vitals: BP 139/64 (Patient Position: Sitting) Pulse 77 Temp 36.7 ??C (98.1 ??F) (Oral) Resp 18 Ht 152.4 cm (5') Wt 106.6 kg (235 lb) SpO2 97% BMI 45.90 kg/m?? / LABs: WBC 6.53, Hgb./Hct. 10.5/33.5, Plts. 205, ANC 4.86. Chem: Na+/K+ 139/4.2, BUN/Creat. 18/1.1, AST 9L, ALT 21, Alk. Phos. 79. Assessment and Plan: Myesha Santizo is a 73 year old female who presents today for chemotherapy teaching and is accompanied by her daughter. The plan is for Docetaxel/Cytoxan given every 3 weeks for 12 weeks. The following information was reviewed with the patient and family. Antitumor Therapy Schedule: Docetaxel (taxotere) and Cyclophosphamide (Cytoxan), every 3 weeks for 4 cycles Laboratory Tests: Prior to every cycle Myesha will have a complete metabolic panel (CMP) and complete blood count (CBC) with differential drawn Provider Visits: Myesha will see either her physician or nurse practitioner prior to every cycle Possible Side Effects include, but are not limited to: Docetaxel (taxotere): The most common potential side effects include: Hair loss, decrease in blood counts (decrease in white blood cells, red blood cells and platelets, resulting in increased risk ofinfection, anemia and bleeding), fluid retention, fatigue, peripheral neuropathy (pain, numbness ortingling in fingers and toes), nausea, changes in nails, and diarrhea. Less common side effects incl ude allergic reactions to the drug, muscle, bone or joint pain, and changes in liver function tests. Cyclophosphamide (Cytoxan): The most common potential side effects include: Hair loss, nausea/vomiting, diarrhea, decrease in blood counts, infertility, changes in skin or nails, and fatigue. Less common side effects include a risk of developing a blood cancer such as leukemia, bladder irritation with high doses and mucositis. Medications: the following prescriptions should be picked up before starting treatment Premed of : ??? Prochlorperazine (compazine) 1 tablet (10 mg) every 6-8 hours as needed Plan: .Myesha was given written information regarding chemotherapy regimen, side effects and management strategies. Myesha was given an opportunity to ask questions and verbalized understanding of the information and treatment plan. No barriers to learning were identified. Myesha was counseled on how to call for any further questions or concerns. ??? Chemotherapy is scheduled to begin on 02/21/19. ??? Testing/Diagnostics o Baseline blood work will be done on day 1 of cycle 1 ??? Supportive Care: o To reduce the risk of neutropenia, she will need injections of neulasta given the day following chemotherapy. Neulasta may cause skeletal pain for several days after each injection. Claritin (loratadine) may be helpful in alleviating neulasta related bone pain. She may take 10 mg starting before her injection and continue to take daily for 5-7 days. - o Antiemetics were reviewed with and Myesha understands how and when to take the medications prescribed o She will need a premedication of dexamethasone while receiving docetaxel (taxotere). She will take 4 mg twice daily starting the day before treatment. She will take one dose the day of treatment asshe will receive a dose of dexamethasone prior to her infusion and will then take a dose twice daily the day following treatment. ??? Fertility: Fertility counseling was provided. ??? Smoking cessation: ??? Advance Directives: A copy of the Advanced Directive was given to the patient. Will refer to social work to assist with completion ??? Psychosocial: ??? Distress Screening: Baseline assessment performed today. .distress ??? Follow up: Return to clinic on 03/14/19. More than 50% of this 50 minute face to face encounter was spent in counseling, education and coordination of care. documented in this encounter Plan of Treatment Upcoming Encounters Date Type Department Care Team (Late Contact Info) Description 03/21/2024 2:30 PM EDT Office Visit Hematology/Oncology at [address] [phone] Edgar Carreon MD [facility] [address] HEMATOLOGY [place] [address] Kadie Gaming APRN [facility] [place] [address] 05/15/2024 3:30 PM EST Office Visit Radiation Oncology at [address] [phone] Patsy Shelton MD [facility] [place] [address] documented as of this encounter Visit Diagnoses Diagnosis Endometrial adenocarcinoma Malignant neoplasm of corpus uteri, except isthmus documented in this encounter Care Teams Paraprofessional Education Assistant Relationship Specialty Start Date End Date Navid Avendaño MD [address] [place] [address] PCP - General Family Medicine 01/24/19 documented as of this encounter
--- OUTSIDE RECORDS SUMMARY | 2024-02-29 01:30 | XMS_ITS | Encounter Summary ---
Author Organization [facility] [place] [address] Care Team Providers Care Second Officer Name Role Phone Navid Avendaño MD Primary Care Provider [phone] Encounter Details Date Type Department Care Team (Late st Contact Info) Description 03/14/2019 10:30 AM EDT Office Visit Hematology/Oncology at [address] [phone] Ivana Rossi APRN [address] [place] [address] Breast cancer, stage 2, left Social History [...] Sign Reading Time Taken Comments Blood Pressure 154/67 03/14/2019 10:17 AM EDT Pulse 79 03/14/2019 10:17 AM EDT Temperature 36.4 ??C (97.5 ??F) 03/14/2019 1 0:17 AM EDT Respiratory Rate 24 03/14/2019 10:1 7 AM EDT Oxygen Saturation 97% 03/14/2019 10: 17 AM EDT Inhaled Oxygen Concentration - - Weight 105.5 kg (232 lb 9.6 oz) 019 10:17 AM EDT Height 152.4 cm (5') 03/14/2019 10:17 AM EDT Body Mass Index 45.43 03/14/2019 10:17 AM EDT documented in this encounter Progress Notes * Ivana Rossi, SPD TECH - 03/14/2019 10:30 AM EDT Subjective: Patient ID: Myesha Santizo is a 73 y.o. female. 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.gr3, LVI-, marilynn neg, ER+/[place]+, Her2 IHC neg, LN 2/6, DCIS, [id number] (stage IIA) HPI: Myesha Burdicksis referred by [...] by her daughter. She is here for lab and toxicityassessment prior to Docetaxel and Cytoxan infusion. She reports urgent diarrhea after her 1st infusion. She did not take Imodium. She has several episodes at home and 1 episode while she was out. Shenow wears depends. She denies pain, fever, chills, night sweats or unusual bleeding. PMH, PSH, FH, and SH: Except as mentioned in the interim history, unchanged since last office visi Review of Systems Constitutional: Positive for appetite change and fatigue. HENT: Negative. Eyes: Negative. Respiratory: Negative. Cardiovascular: Negative. Gastrointestinal: Positive for diarrhea. Endocrine: Negative. Genitourinary: Negative. Musculoskeletal: Negative. Skin: Negative. Allergic/Immunologic: Negative. Neurological: Negative. Hematological: Negative. Psychiatric/Behavioral: Negative. [...] behavior is normal. Vitals reviewed. Vitals: BP 154/67 (Patient Position: Sitting) Pulse 79 Temp 36.4 ??C (97.5 ??F) (Oral) Resp 24 Ht 152.4 cm (5') Wt 105.5 kg (232 lb 9.6 oz) SpO2 97% BMI 45.43 kg/m?? 03/14/19 LABs: WBC 13.8, Hgb./Hct. 10.2/31.9, Plts. 271, ANC 11.6. Chem: Na+/K+ 139/3.8, BUN/Creat. 25/1.1, AST 11L, ALT 22, Alk. Phos. 95. Assessment and Plan: 1. Breast cancer. Currently being treated with Docetaxel and Cytoxan every 3 weeks. 2. Reviewed lab results with patient and daughter. 3. Patient encouraged to used Imodium if she has diarrhea. She was also encouraged to used full briefs instead of pads that she could change if she had an accident. 4. RTC in 3 weeks for labs and repeat toxicity assessment prior to infusion. Addendum: Patient was receiving Docetaxel, had a reaction, where she passed out and was drooling, She came to, and complained of chest pressure and heart palpitations. Dr. Carreon ordered and the patient was given Pepcid 20mg IVP and Dexamethasone 10 IVP, vitals were monitored throughout. Patientwas [facility]. Her daughter who had left, was called and informed. Patient will return for OV with MD, then be referred for radiation therapy. Ivana Rossi, MSN, SPD TECH, AOCNP documented in this encounter Plan of Treatment Upcoming Encounters Date Type Department Care Team (Late st Contact Info) Description 03/21/2024 2:30 PM EDT Office Visit Hematology/Oncology at [address] [phone] Edgar Carreon MD [facility] [address] [place] [address] Kadie Gaming APRN [facility] [place] [address] 05/15/2024 3:30 PM EST Office Visit Radiation Oncology at [address] [phone] Patsy Shelton MD [facility] [place] [address] documented as of this encounter Visit Diagnoses Diagnosis Breast cancer, stage 2, left documented in this encounter Care Teams Second Officer Relationship Specialty Start Date End Date Navid Avendaño MD [address] [place] [address] [address] [place] [address] PCP - General Family Medicine 01/24/19 documented as of this encounter
--- OUTSIDE RECORDS SUMMARY | 2024-02-29 01:30 | XMS_ITS | Encounter Summary ---
Author Organization [facility] Address [facility] [place] [place] [address] Care Team Providers Care Private Duty Aide Name Role Phone Maya Burden MD Primary Care Provider [phone] Encounter Details Date Type Department Care Team (Late st Contact Info) Description 12/21/2018 External [place] [phone] Provider, Scanning Social History Tobacco Use Types Packs/Day Years [...] 2:30 PM EDT Office Visit Hematology/Oncology at [address] [phone] Edgar Carreon MD [facility] [address] [place] [address] Kadie Gaming APRN [facility] [place] [address] 05/15/2024 3:30 PM EST Office Visit Radiation Oncology at [address] [phone] Patsy Shelton MD [facility] [place] [address] documented as of this encounter Procedures Procedure Name Priority Date/Time Associated Diagnosis Comments SURGICAL PATHOLOGY SCAN Routine 12/21/2018 documented in this encounter Results * Scan Doc: Surgical Pathology (12/21/2018) Edgar Carreon MD MEDIA MGR SCAN EXT O RDR/RSLT documented in this encounter Visit Diagnoses Not on filedocumented in this encounter Care Teams Private Duty Aide Relationship Specialty Start Date End Date Maya Burden MD [address] [place] [address] PCP - General 05/27/10 01/23/19 documented as of this encounter
--- OUTSIDE RECORDS SUMMARY | 2024-02-29 01:30 | XMS_ITS | Encounter Summary ---
Author Organization [facility] [place] [address] Care Team Providers Care Head Worker Name Role Phone Navid Avendaño MD Primary Care Provider [phone] [phone] Encounter Details Date Type Department Care Team (Late st Contact Info) Description 04/12/2019 Telephone Radiation Oncology at [address] [phone] Celeste Flynn RN Social History [...] Telephone Encounter - Celeste Flynn RN - 04/12/2019 8:37 AM EDT Background: Received trillian message from attendance secretary Pato that patient not making it in for radiation today as she is not feeling well. Telephone call to patient to assess status. She reports that yesterday she was sneezing and had runny nose. This morning woke up with a stuffy head, chest heavy like coming down with a cold. Reports that she no longer is sneezing or having rhinitis. Denies cough except her usual nonproductive when she first wakes up. Denies any sputum production, chest pain/pressure, nausea, vomiting, diarrhea.Does has not felt feverish. She did check temperature during our telephone call and reports 97.0 F.Appetite was fine yesterday but today all she really wants to do is sleep. She notes that she did take lorazepam at [facility] to help her sleep. She doesn't feel up to driving down for her treatment today. She plans to come in tomorrow if she feels better. I advised that she call her PCP this morning to update regarding symptoms which she is agreeable todo. Advised to push fluids to stay adequately hydrated. She has started already by drinking water during phone call. Dr. Shelton updated with this note. documented in this encounter Plan of Treatment Upcoming Encounters Date Type Department Care Team (Late st Contact Info) Description 03/21/2024 2:30 PM EDT Office Visit Hematology/Oncology at [address] [phone] Edgar Carreon MD [facility] DR HEMATOLOGY [place] [address] Kadie Gaming APRN [facility] [place] [address] 05/15/2024 3:30 PM EST Office Visit Radiation Oncology at [address] [phone] Patsy Shelton MD [facility] [place] [address] documented as of this encounter Visit Diagnoses Not on filedocumented in this encounter Care Teams Head Worker Relationship Specialty Start Date End Date Navid Avendaño MD [address] [place], [place] [address] PCP - General Family Medicine 01/24/19 documented as of this encounter
--- OUTSIDE RECORDS SUMMARY | 2024-02-29 01:30 | XMS_ITS | Encounter Summary ---
Author Organization [facility] [place] [address] Care Team Providers Care Driver Manager Name Role Phone Navid Avendaño MD Primary Care Provider [phone] Reason for Visit * Reason Onset Date Comments Prior Authorization 02/07/2019 Oncotype Dx Encounter Details Date Type Department Care Team (Late Contact Info) Description 02/07/2019 Telephone Hematology/Oncology at [address] [phone] Patel Berumen RN Prior Authorization (Oncotype Dx) Social History Tobacco Use Types Packs/Day [...] Telephone Encounter - Patel Berumen RN - 02/07/2019 3:30 PM EDT Fax received from [employer] requesting Medical Records in order to authorize Oncotype Dx testing. Faxed them the last FUV note with Dr Carreon (New Pt note) that gives history and physical along with treatment plan details per request. Fax sent to , fax confirmed. documented in this encounter Plan of Treatment Upcoming Encounters Date Type Department Care Team (Late st Contact Info) Description 03/21/2024 2:30 PM EDT Office Visit Hematology/Oncology at [address] [phone] Edgar Carreon MD [facility] [address] [place] [address] Kadie Gaming APRN [facility] [place] [address] 05/15/2024 3:30 PM EST Office Visit Radiation Oncology at [address] [phone] Patsy Shelton MD [facility] [place] [address] documented as of this encounter Visit Diagnoses Not on filedocumented in this encounter Care Teams Driver Manager Relationship Specialty Start Date End Date Navid Avendaño MD [address] [place] [address] [address] [place] [address] PCP - General Family Medicine 01/24/19 documented as of this encounter
--- OUTSIDE RECORDS SUMMARY | 2024-02-29 01:30 | XMS_ITS | Encounter Summary ---
Author Organization Count Includes [facility] Address [facility] [address] [place] [address] Care Team Providers Care Marine Pipe Welder Name Role Phone Navid Avendaño MD Primary Care Provider [phone] Reason for Visit * Reason Comments On Treatment Visit Encounter Details Date Type Department Care Team (Late st Contact Info) Description 04/18/2019 9:30 AM EDT Office Visit Radiation Oncology at [address] [phone] Patsy Shelton MD [facility] [place] [address] Malignant neoplasm of lower-inner quadrant of left [...] Sign Reading Time Taken Comments Blood Pressure 139/65 04/18/2019 9:45 AM EDT Pulse 72 04/18/2019 9:45 AM EDT Temperature 36.7 ??C (98.1 ??F) 04/18/2019 9:45 AM ED T Respiratory Rate 14 04/18/2019 9:45 AM EDT Oxygen Saturation 98% 04/18/2019 9:45 AM EDT Inhaled Oxygen Concentration - - Weight - - Height - - Body Mass Index - - documented in this encounter Progress Notes * Patsy Shelton MD - 04/18/2019 9:30 AM EDT Images from the original note were not included. 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 S/p 1 cycle docetaxel/cyclophosphamide followed by discontinuation of chemo after infusion rxn to 2nd cycle. CURRENT TREATMENT DOSE: 22 Gy L supraclav, L axilla, L chest wall ANTICIPATED TOTAL DOSE: 50 Gy L supraclav, L axilla, L chest wall; 60 Gy mastectomy scar boost. Current # of xrt received: 11 L supraclav, L axilla, L chest wall Anticipated total # of xrt txs: 25 L supraclav, L axilla, L chest wall; 30 mastectomy scar boost Evaluation of port verification films: Approved. For details, see electronic film record in [employer] System. Changes in Medical Condition: Tylenol arthritis helps her be more comfortable on xrt tx table by preventing R elbow pain which she relates to position of R arm on xrt tx table. Irritation of skin UOQL chest/L low axilla. She has recovered from her cold of last wk. Pain?: See above. Your Medications Accurate as of April 18, 2019 9:56 AM. If you have any questions, ask [...] Cap Daily Refills: 0 Physical Exam: BP 139/65 (Patient Position: Sitting) Pulse 72 Temp 36.7 ??C (98.1 ??F) (Oral) Resp 14 SpO2 98% A&Ox3, NAD. Mild erythema irrad'd area, skin intact. Amb stable w/cane. Imagin03/21/19 Dx'ic Rad Interp CTsim: Left mastectomy changes. Mild enlargement of the spleen. Coronary artery atherosclerotic disease. ?? Performance Status: KPS 80%. Response to xrt: As expected. Irradiation Related Symptoms: R elbow discomfort from arm position on xrt tx table. Skin changes. Treatment for Symptom Control: Given mepilex-lite to apply to UOQ L chest/low L axilla to prevent skin on skin rubbing. Adria's cream. Pain Management: Tylenol arthritis tab prior to xrt. Recommendation on Continuing Course of xrt: Cont. documented in this encounter Plan of Treatment Upcoming Encounters Date Type Department Care Team (Late st Contact Info) Description 03/21/2024 2:30 PM EDT Office Visit Hematology/Oncology at [address] [phone] Edgar Carreon MD [facility] [place] [address] Kadie Gaming APRN [facility] [place] [address] 05/15/2024 3:30 PM EST Office Visit Radiation Oncology at [address] [phone] Patsy Shelton MD [facility] [place] [address] documented as of this encounter Visit Diagnoses Diagnosis Malignant neoplasm of lower-inner quadrant of left female breast, unspecified estrogen receptor status documented in this encounter Care Teams Marine Pipe Welder Relationship Specialty Start Date End Date Navid Avendaño MD [address] [place], [place] [address] PCP - General Family Medicine 01/24/19 documented as of this encounter
--- OUTSIDE RECORDS SUMMARY | 2024-02-29 01:30 | XMS_ITS | Encounter Summary ---
Author Organization [facility] Address [facility] [address] [place] [address] Care Team Providers Care Financial Systems Analyst Name Role Phone Navid Avendaño MD Primary Care Provider [phone] [phone] Reason for Referral * Physical Therapy (Routine) - Specialty Diagnoses / Procedures Referred By Moses damian Referred To Contact Physical Therapy Diagnoses Malignant neoplasm of lower-inner quadrant of left female breast, unspecified estrogen receptor status Patsy Shelton MD [facility] [place] [address] Referral ID Status Reason Start Date Expiration Date V isits Requested Visits Authorized [id number] Evaluate and Treat Non DH PCP 03/21/2019 09/17/2019 12 12 * Consultation (Routine) - Closed Specialty Diagnoses / Procedures Referred By Moses damian Referred To Contact Radiation Oncology Diagnoses Malignant neoplasm of lower-inner quadrant of left female breast, unspecified estrogen receptor status Procedures Simulation for Radiation Therapy Planning PRG RADIATION THERAPY PLAN COMPLEX PRG SET RADIATION THERAPY FIELD COMPLEX PRG RADIATION TREATMENT AID(S) INTERM PRG SET RADIATION THERAPY FIELD 3D RECON PRG RESPIRATORY MOTION MANAGEMENT PLANNING PRG BASIC RADIATION DOSIMETRY CALCULATION PRG RADIATION TREATMENT AID(S) COMPLX PRG SET RADIATION THERAPY FIELD SIMPLE PRG RADIATION TREATMENT AID(S) COMPLX PRG SET RADIATION THERAPY FIELD SIMPLE CHG RADN RX DELIVERY COMPLX =<5 MEV RADIOLOGY PORT FILM(S) CHG RADN PHYSICS CONSULT CONTINUING PRG RADIATION MANAGEMENT, 5 TREATMENTS [address] Patsy Shelton MD [facility] [place] [address] [facility] Rad Onc Office [address] [place] [phone] Referral ID Status Reason Start Date Expiration Date V isits Requested Visits Authorized [id number] Closed Consult, Test & Treat 03/20/2019 03/19/2020 1 1 Reason for Visit * Reason Comments Radiation Consult * Consultation (Routine) - Closed Specialty Diagnoses / Procedures Referred By Contac t Referred To Contact Radiation Oncology Diagnoses Breast cancer, stage 2, left Edgar Carreon MD [facility] DR HEMATOLOGY [place] [address] [facility] Rad Onc Treatment [address] [place] [phone] Referral ID Status Reason Start Date Expiration Date V isits Requested Visits Authorized [id number] Closed Consult, Test & Treat 02/03/2019 02/03/2020 1 1 Encounter Details Date Type Department Care Team (Late st Contact Info) Description 03/20/2019 10:00 AM EDT Office Visit Radiation Oncology at [address] [phone] Patsy Shelton MD [facility] [place] [address] Malignant neoplasm of lower-inner quadrant of left [...] Sign Reading Time Taken Comments Blood Pressure 130/62 03/20/2019 10:12 AM EDT Pulse 79 03/20/2019 10:12 AM EDT Temperature 36.9 ??C (98.5 ??F) 03/20/2019 1 0:12 AM EDT Respiratory Rate 18 03/20/2019 10:1 2 AM EDT Oxygen Saturation 98% 03/20/2019 10: 12 AM EDT Inhaled Oxygen Concentration - - Weight 104 kg (229 lb 3.2 oz) 9 10:12 AM EDT with shoes Height - - Body Mass Index 44.76 03/14/2019 10:17 AM EDT documented in this encounter Progress Notes * Celeste Flynn RN - 03/20/2019 10:00 AM EDT RADIATION ONCOLOGY NURSING INITIAL NURSING ASSESSMENT IDENTIFICATION: Myesha Santizo is a 73 y.o. year-old female with left breast cancer. PRESENTING SYMPTOMS/CHIEF COMPLAINT: Presented with self palpated lump. REVIEW OF SYSTEMS: Review of Systems - Oncology IN THE PAST 12 MONTHS HAVE YOU: Fallen more than one time? No Injured yourself as result of the fall? N/A Experienced difficulty with walking/problems with balance? Yes Do you use any assistive devices? Cane, does have a walker too Any history of collagen vascular diseases:Yes Any Implanted Devices/Hardware: Yes Cataract lenses both eyes If yes please put alert in ARIA patient summary Prior Radiotherapy: No Prior Chemotherapy: Yes. Last dose 03/14 docitaxel with reaction. Prior Hormone Therapy: No LEARNING ASSESSMENT REVIEWED: Yes ADVANCED DIRECTIVE: on file PAIN ASSESSMENT: 0 out of 10 *eD-H Adult PCS Flow Sheet if 4 or above SOCIAL ASSESSMENT: See EDH social assessment information entered. Support Systems: Daughter Geovanna, family, friends. Barriers to treatment: none . Referrals/Interventions: PAPER RULER per routine RADIATION SPECIFIC TEACHING: [facility] Radiation Therapy and You Site specific teaching : To be done by nursing on day of simulation. Other: PLAN: Per Dr. Shelton * Patsy Shelton MD - 03/20/2019 10:00 AM EDT Images from the original note were not included. CC: Referred by Dr. Carreon for eval for xrt for breast ca. HPI: 73 y/o f who presented to PCP (Dr. Avendaño) after palpating L breast mass. Dr. Avendaño obtained mmg & US. 11/01/18 B dx'ic mmg & L breast US: 2.7 cm mass @ 8:00 L breast. R breast nl. 11/11/18 needle core bx L breast. Path: IDC, DCIS, ER+TX+, Her2 IHC neg. 11/22/[address] Bedolla showed peau d'orange & skin thickening UIQ L breast w/slight nippleretraction. No adenopathy. 12/07/18 L mastectomy & SNB. Drain placed on lateral L chest wall. 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 Oncotype DX 29. 02/21/19 cycle 1 docetaxel/cyclophosphamide. 03/14/19 2nd cycle docetaxel/cyclophosphamide, during which she became unresponsive & hypotensive; infusion stopped & she was sent to ER & admitted to hospital; no further chemo planned. ROS: Surg scar well healed. Level 1 pain @ most (1-10 scale) @ surg site, less than a few mos ago, does not require pain med, does not wake her. Tightness @ mastectomy scar. No hand/arm swelling. ROMarms around shoulders nl. Energy level decreased since recent hospitalization. Past Medical History: Diagnosis Date ??? Anxiety ??? Avila esophagus ??? Hx of adenomatous polyp of colon ??? Hyperlipidemia ??? Hypertension ??? Hypothyroid ??? Hypothyroid ??? Squamous cell skin cancer No lupus/scleroderma. No prior xrt. Sleep apnea DM type 2. Obstructive sleep apnea Periodic limb movement disorder Past Surgical History: Procedure Laterality Date ??? BREAST BIOPSY ??? SECTION ??? ENDOMETRIAL BIOPSY ??? PRO LAP, PELVIC LYMPHADENECTOMY/BX N/A 03/28/2015 LAPAROSCOPY,W\BILATERAL TOTAL PELVIC LYMPHADENECTOMY, PERIAORTIC LYMPH NODE SAMPLING, ROBOTIC performed by Anthony Belle MD at [facility] MAIN OR ? ? PRO LAPAROSCOPY W TOT HYSTERECTUTERUS <=250 GRAM W TUBE/OVARY N/A 03/28/2015 LAPAROSCOPY,TOTAL HYST, UTERUS<250GM, EVER TYBE &/OR OVARY, ROBOTIC ASSIST performed by Anthony Belle MD at [facility] MAIN OR Cataract surg OU Your Medications Accurate as of March 20, 2019 10:29 AM. If you have any questions, ask [...] MULTIPLE Tab Generic drug: multivitamin Refills: 0 dexamethasone 4 mg Tab Commonly known as: DECADRON Take 1 tablet by mouth See Admin Instructions. 1 tab BID day before chemo, 1 tab the am of chemo, 1tab BID day after chemo 4 mg Quantity: 20 tablet Refills: 0 ibuprofen 600 mg Tab Commonly [...] by mouth nightly. 2 mg Refills: 0 senna-docusate 8.6-50 mg Tab Commonly known as: PERICOLACE Take 1 tablet by mouth daily. 1 tablet Quantity: 60 tablet Refills: 0 sertraline 50 mg Tab Commonly known as: ZOLOFT 100 mg. Daily 100 mg Refills: 0 SYNTHROID 75 mcg Tab 75mcg, PO, Once daily Generic drug: levothyroxine Refills: 0 vitamin E 400 unit Cap Daily Refills: 0 FHx: + ca - esophagus in bro, breast in pat aunt, colon in pat gr fa. P&SHx: Never smoker. Physical Exam Constitutional: She is oriented to person, place, and time. She appears well- developed and well-nourished. No distress. BP 130/62 (Patient Position: Sitting) Pulse 79 Temp 36.9 ??C (98.5 ??F) (Oral) Resp 18 Wt 104 kg (229 lb 3.2 oz) Comment: with shoes SpO2 98% BMI 44.76 kg/m?? HENT: Head: Normocephalic and atraumatic. Eyes: Conjunctivae and EOM are normal. Right eye exhibits no discharge. Left eye exhibits no discharge. No scleral icterus. Neck: Normal range of motion. Neck supple. No tracheal deviation present. Pulmonary/Chest: Effort normal. No stridor. No respiratory distress. Right breast exhibits no inverted nipple, no mass, no nipple discharge, no skin change and no tenderness. Abdominal: Soft. She exhibits no distension and no mass. There is no tenderness. There is no rebound and no guarding. No hernia. Musculoskeletal: Normal range of motion. She exhibits [...] behavior is normal. Judgment and thought contentnormal. 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 S/p 1 cycle docetaxel/cyclophosphamide followed by discontinuation of chemo after infusion reaction to 2nd cycle of docetaxel/cyclophosphamide. P: Xrt to L chest wall & draining lymphatics rec'd to decrease risk of ca recurrence. Xrt would be given in 30 fxs. Possible side effects of xrt discussed, w/acute/immediate side effects including: Pinkening, soreness & peeling of skin in treated area; swelling of treated area; soreness of treated area; cough;shortness of breath; sore throat; sense of fullness in throat; swelling of L hand/arm, which could be permanent; numbness, tingling, weakness & difficulty coordinating L hand/arm; tiredness. To decrease risk of lymphedema, she was instructed to avoid bp measurement on L upper extremity, avoid needle sticks on L upper extremity, avoid lifting too heavy of objects with L upper extremity & to contact her physician if upper extremity turns pink or starts to swell. Late/termite exterminator side effects of xrt discussed include: Treated soft tissue may tighten & become firmer; achiness/stiffness of chest wall on treated side; possible small increase in risk of dying of heart disease; L sided rib fracture; CT after xrt may show scarring w/in small volume of lung on treated side; permanent swelling of L hand/arm; small risk of irradiation associated 2nd malignancy. Need for CTsim prior to xrt discussed. At CTsim, she will be evaluated for use of deep inspiration breath hold (DIBH) to decrease dose of xrt to heart. She would like to proceed w/xrt & will return tomorrow for CTsim. She will be advised to not take vit E during xrt. We discussed possible PT referral for tightness @ mastectomy scar & she asks to be referred to Andrei Carrillo PT in [facility]. 25 mins of 40 min face to face visit w/Myesha spent discussing rationale for xrt; hoped for benefitof xrt; possible side effects/complications of xrt; prevention/management of side effects/complications of xrt; logistics of daily xrt; CTsimulation w/eval for DIBH; arm position required for xrt; followup after completion of xrt. Radiation carcamo:Post mastectomy Radiation boost:Yes Total dose of radiation: 60 Gy documented in this encounter Plan of Treatment Upcoming Encounters Date Type Department Care Team (Late st Contact Info) Description 03/21/2024 2:30 PM EDT Office Visit Hematology/Oncology at [address] [phone] Edgar Carreon MD [facility] DR HEMATOLOGY [place] [address] Kadie Gaming APRN [facility] [place] [address] 05/15/2024 3:30 PM EST Office Visit Radiation Oncology at [address] [phone] Patsy Shelton MD [facility] [place] [address] Scheduled Orders Name Type Priority Associated Diagnoses Orde r Schedule Simulation for Radiation Therapy Planning Procedures Routine Malignant neoplasm of lower-inner quadrant of left female breast, unspecified estrogen receptor status Ordered: 03/20/2019 Scheduled Referrals Name Type Priority Associated Diagnoses Orde r Schedule Referral to Physical Therapy Outpatient Referral Routine Malignant neoplasm of lower-inner quadrant of left female breast, unspecified estrogen receptor status Ordered: 03/21/2019 documented as of this encounter Visit Diagnoses Diagnosis Malignant neoplasm of lower-inner quadrant of left female breast, unspecified estrogen receptor status documented in this encounter Care Teams Financial Systems Analyst Relationship Specialty Start Date End Date Navid Avendaño MD [address] [place] [address] [address] [place] [address] PCP - General Family Medicine 01/24/19 documented as of this encounter
--- OUTSIDE RECORDS SUMMARY | 2024-02-29 01:30 | XMS_ITS | Encounter Summary ---
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; Endometrial adenocarcinoma; Breast cancer, stage 2, left; Left leg pain; Asymptomatic menopausal state; 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 Ms. Santizo completed adjuvant radiation on May 15. She still feels tenderness around her breast and uses Aquaphor cream. Complaints and pain in the both upper legs which is new and left upper quadrant discomfort in her stomach. PMH: Syncopal episode on March 14 and [...] file Gets together: Not on file Attends buddhism service: Not on file Active member of [...] Medications: Your Medications Accurate as of May 30, 2019 3:45 PM. If you have any questions, ask [...] and axillary nodes normal Neurologic: Normal Vitals There were no vitals taken for this visit. Pathology: Oncotype DX breast recurrence score for my comments and not +1-3: 29 corresponded to distant recurrence risk at 9 years of 23%. Tamoxifen alone A ??- Outside slide(s) labeled [id number], collection date 11/11/2018. 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 On submitted slides (reviewed) - ER immunoreactivity: Positive (>90% cancer cells with immunostaining) Stain intensity: Intermediate and Strong TN immunoreactivity: Positive (>90% cancer cells with immunostaining) Stain intensity: Strong HER2 IHC - Per report, 1+/Negative B ??- Outside slide(s) labeled [id number], collection date 12/07/2018. 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 - Ductal carcinoma in-situ (DCIS), high grade with comedonecrosis. - See Synoptic report. B - Lymph node, Mascotte #1, left axillary, excision (4 slides labeled B)- - Metastatic carcinoma to one of two lymph nodes. - The anita metastasis measures 1.9 cm. - Extranodal invasion is present. 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 C - Lymph node, left axilla, excision (3 slides labeled C)- - One benign node. D - Lymph node, Mascotte #2, left axillary, excision (1 slide labeled D)- - One benign node. E - Lymph node, Mascotte #3, left axillary, excision (2 slides labeled E)- - Two benign nodes. F - Medial Skin edge, excision (2 slides labeled F) - - Benign skin and subcutis. Specimen ?Procedure: ??Total mastectomy ?Specimen Laterality: ?? Left Tumor ?Histologic Type: ?? Invasive carcinoma of no special type (ductal, not ? otherwise specified) ?Histologic Type Comments: ?? with micropapillary features ?Histologic Grade ([place] Histologic Score) ? Glandular (Acinar) / Tubular [...] Lymph Nodes Examined: ?6 ? Number of Mascotte Nodes Examined: ?5 Pathologic Stage Classification (pTNM, AJCC 8th Edition) ?Primary Tumor (Invasive Carcinoma) (pT): ?pT2 ?Regional Lymph Nodes (pN) ? Category (pN): ?? pN1a Labs: 05/22/2019 WBC 6.72, hemoglobin 11.3, platelet count [...] with focal micropapillary features.gr3, LVI-, marilynn neg, ER+/TN+, Her2 IHC neg, LN 2/6, DCIS, [id number] (stage IIA) Treatment: -12/07/2018 left mastectomy and sentinel lymph node biopsy -02/21/19 started docetaxel and cyclophosphamide, 2-nd cycle was aborted due to Grade 4 reactions - Ms. Santizo has new diagnosis of breast [...] year cancer related mortality is downto 15.9%. Patient is developed syncopal episode with [...] radiation under the care of Dr. Shelton 2 weeks ago. Complains of new leg pain and abdominal discomfort. We discussed restaging CT bone scan to evaluatefor metastatic disease. She is interested to have the scans done. We talked about benefits and the risk of aromatase inhibitor such as letrozole 2.5 mg daily. 5-10 years of letrozole decrease chances of cancer recurrence by almost half. Side effects include but notlimited to hot flashes, fatigue, sweats, vaginal dryness, osteoporosis, musculoskeletal ache/pain. All questions were answered to patient's satisfaction. She is interested to proceed with letrozole. Informed verbal consent was obtained. she will start letrozole this week #DEXa: Will obtain DEXA scan to evaluate for osteoporosis Plan: 1. Start Letrozole 2.[address] CAP and bone scan 3. Dexa scan 4. Next visit with CBC and CMP in 5 weeks Ms. Santizo is accompanied by her daughter today. The plan was discussed with the patient in details. All questions were answered to patient's satisfaction. documented in this encounter Plan of Treatment Upcoming Encounters Date Type Department Care Team (Late st Contact Info) Description 03/21/2024 2:30 PM EDT Office Visit Hematology/Oncology at [address] [phone] Edgar Carreon MD [facility] HEMATOLOGY [place] [address] Kadie Gaming APRN [facility] [place] [address] 05/15/2024 3:30 PM EST Office Visit Radiation Oncology at [address] [phone] Patsy Shelton MD [facility] [place] [address] documented as of this encounter Procedures Procedure Name Priority Date/Time Associated Diagnosis Comments LAB SCAN 06/21/2019 12:00 AM EST LAB SCAN 06/21/2019 12:00 AM EST DIAGNOSTIC RADIOLOGY SCAN 06/21/2019 12:00 AM EST documented in this encounter Results * SCAN DOC: LAB (06/21/2019 12:00 AM EST) Narrative 06/21/2019 12:00 AM EST Ordered by an unspecified provider. Scanning Provider MEDIA MGR SCAN EXT O RDR/RSLT * SCAN DOC: LAB (06/21/2019 12:00 AM EST) Narrative 06/21/2019 12:00 AM EST Ordered by an unspecified provider. Scanning Provider MEDIA MGR SCAN EXT O RDR/RSLT * SCAN DOC: DIAGNOSTIC RADIOLOGY (06/21/2019 12:00 AM EST) Anatomical Region Laterality Modality Other Narrative 06/21/2019 12:00 AM EST Ordered by an unspecified provider. 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
--- OUTSIDE RECORDS SUMMARY | 2024-02-29 01:30 | XMS_ITS | Encounter Summary ---
Author Organization [facility] Address [facility] [place] [address] Care Team Providers Care Wood Cutter Name Role Phone Navid Avendaño MD Primary Care Provider [phone] Reason for Visit * Reason Onset Date Comments Follow-up 02/22/2019 s/p first chemo infusion Encounter Details Date Type Department Care Team (Late st Contact Info) Description 02/22/2019 Telephone Hematology/Oncology at [address] [phone] Patel Berumen, RN Follow-up (s/p first chemo infusion) Social History Tobacco Use Types Packs/Day Years [...] Telephone Encounter - Patel Berumen RN - 02/22/2019 4:27 PM EDT Post chemo call Placed call to patient to assess tolerance of first time chemotherapy treatment. Regimen received: Docetaxel + Cyclophosphamide + Neulasta OnPRO Date of treatment: 02/21/19 Assessment: Symptom?? Present (yes[y]/no[n]/ stable[s] from baseline)?? Additional information/Assessment?? GI? Nausea?? N ?? Vomiting?? N ?? Nausea medication?? N ?? Tolerating diet?? Y ?? Maintaining fluid intake (indicate volume)?? Y ?? Bowel movements regular?? N Had liquid mustard yellow BM last evening from 6 - 9PM. Made her bottom sore because it burned. She then had normal brown BM this morning at 9AM. Diarrhea?? Y Seems resolved today from last night. Mouth sores?? N ?? General? Pain (0 none - 10 high)?? N ?? Using pain medications?? Y Tylenol for ZIEGLER +effect Fever?? N ?? Neuro? Level of fatigue (0 - 5)?? 0? Falls?? N ?? Numbness/tingling in arms/legs?? N ?? Cognitive changes?? N ?? Skin? Skin changes?? N ?? Pinpoint red dots?? N ?? Other s/s of bleeding?? N? IV site/VAD problems?? N Musculoskeletal? Joint swelling or tenderness?? N ?? Arthralgias or myalgias?? N ? Voiding problems?? N ?? Color and quality of urine?? Clear, yellow ?? Cardio-pulmonary? Shortness of breath?? N ?? Chest pain?? N ?? Swelling in legs?? N ?? Calf pain or tenderness?? N? Cough (productive/non-productive)?? N ?? Psychosocial? Coping?? Y Daughter lives next door ? Need prescription renewals?? N ?? Other issues :??Pt reports anxiety but feels better after talking. She reports lightheadedness but better today than yesterday. May be foggy from benadryl and lorazepam given yesterday. ?? Education provided: Neulasta OnPRO on and will be given tonight- Pt aware of when it is okay to remove. ?? Plan:? 1. Call tomorrow to see how the Neulasta injection went and to re-assess bowels and lightheadedness. 2. Reinforced to patient/care-writer technical publications to call facility 25/01 with any new/worsening signs and symptomsor concerns or questions.?? Phone number provided.?? Pt verbalized understanding and is in agreement with plan. ? documented in this encounter Plan of Treatment Upcoming Encounters Date Type Department Care Team (Late st Contact Info) Description 03/21/2024 2:30 PM EDT Office Visit Hematology/Oncology at [address] [phone] Edgar Carreon MD [facility] DR [place] [address] Kadie Gaming APRN [facility] [place] [address] 05/15/2024 3:30 PM EST Office Visit Radiation Oncology at [address] [phone] Patsy Shelton MD [facility] [place] [address] documented as of this encounter Visit Diagnoses Not on filedocumented in this encounter Care Teams Wood Cutter Relationship Specialty Start Date End Date Navid Avendaño MD [address] [place] [address] [address] [place] [address] PCP - General Family Medicine 01/24/19 documented as of this encounter
--- OUTSIDE RECORDS SUMMARY | 2024-02-29 01:30 | XMS_ITS | Encounter Summary ---
Author Organization [facility] [address] [place] [address] Care Team Providers Care Dish Maker Name Role Phone Navid Avendaño MD Primary Care Provider +1 [phone] Encounter Details Date Type Department Care Team (Late Contact Info) Description 05/16/2019 Notes Only Radiation Oncology at [address] [phone] Patsy Shelton MD [facility] [place] [address] Social History Tobacco Use Types Packs/Day Years [...] Progress Notes * Patsy Shelton MD - 05/16/2019 1:23 PM EST Error, wrong date. documented in this encounter Plan of Treatment Upcoming Encounters Date Type Department Care Team (Late Contact Info) Description 03/21/2024 2:30 PM EDT Office Visit Hematology/Oncology at [address] [phone] Edgar Carreon MD [facility] [place] [address] Kadie Gaming APRN [facility] [place] [place] [address] 05/15/2024 3:30 PM EST Office Visit Radiation Oncology at [address] [phone] Patsy Shelotn MD [facility] [place] [address] documented as of this encounter Visit Diagnoses Not on filedocumented in this encounter Care Teams Dish Maker Relationship Specialty Start Date End Date Navid Avendaño MD [address] [facility] [place], [place] [id number] PCP - General Family Medicine 01/24/19 documented as of this encounter
--- OUTSIDE RECORDS SUMMARY | 2024-02-29 01:30 | XMS_ITS | Encounter Summary ---
Author Organization [facility] [place] [address] Care Team Providers Care Mapping Technician Name Role Phone Navid Avendaño MD Primary Care Provider [phone] [phone] Encounter Details Date Type Department Care Team (Late st Contact Info) Description 03/21/2019 Notes Only Radiation Oncology at [address] [phone] Stephanie Stinson MSW OFFICE OF CARE MANAGEMENT [...] Progress Notes * Stephanie Stinson MSW - 03/21/2019 11:19 AM EDT Follow up with pt and daughter prior to clinic visit and sim. Pt reports she is feeling better thanshe did last week when she reportedly had a reaction to her chemo. She is meeting with her medical oncologist to discuss. She then has a sim. Pt making decisions on how she wants to proceed. If pt does get RT, transportation may be an issues as daughter works. Informed pt FIELD CASHIER could talk to [facility] as see if she is eligible to use [facility] funds for help with rides. Reminded pt of FIELD CASHIER available. Asked that she and/or daughter let FIELD CASHIER know what her plans are and ifshe needs to explore use of community resources such as RCT. Offered support. Will follow for support and resources. documented in this encounter Plan of Treatment Upcoming Encounters Date Type Department Care Team (Late st Contact Info) Description 03/21/2024 2:30 PM EDT Office Visit Hematology/Oncology at [address] [phone] Edgar Carreon MD [facility] [address] [place] [address] Kadie Gaming APRN [facility] [place] [address] 05/15/2024 3:30 PM EST Office Visit Radiation Oncology at [address] [phone] Patsy Shelton MD [facility] [place] [address] documented as of this encounter Visit Diagnoses Not on filedocumented in this encounter Care Teams Mapping Technician Relationship Specialty Start Date End Date Navid Avendaño MD [address] [place] [address] PCP - General Family Medicine 01/24/19 documented as of this encounter
--- OUTSIDE RECORDS SUMMARY | 2024-02-29 01:30 | XMS_ITS | Encounter Summary ---
Author Organization [facility] Address [facility] [place] [address] Care Team Providers Care Business Information Consultant Name Role Phone Navid Avendaño MD Primary Care Provider [phone] [phone] Encounter Details Date Type Department Care Team (Late st Contact Info) Description 02/21/2019 Notes Only Hematology/Oncology at [address] [phone] Stephanie Stinson MSW OFFICE OF CARE MANAGEMENT [...] Progress Notes * Stephanie Stinson MSW - 02/21/2019 1:00 PM EDT Reason for Referral: Brief assessment of social and emotional needs. Met with pt during her first infusion today. Social Supports: Pt identified her primary supports as her only child/daughter Katina, her son in law and her grandson. Living Situation/Daily Activities/Transportation: Pt manages her daily chores and activities. 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 She has a ramp, walkers, hospital bed, walk in shower, lift chair and a raised toilet seat. She drivers herself. If she needs help with rides [facility] will arrange this. Work/Finances/Insurance: Pt is retired. She has [employer] for insurance. Advance Directives: Pt thinks she completed an advance directive but can not locate it. Suggested she call her PCP office to see if it is on file. Gave her a Vt booklet/form if she needs to update her document. Offered to help her if needed. Utilization of Community Resources: None at this time. Adjustment to Illness/Mental Health Issues: Pt reports she is coping the best she can. She describes herself as independent and self reliant. 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 Identified Needs: Pt did not identify any specific needs at this time. Referrals: None at this time. Plan: Informed pt of TRAFFIC SIGNAL SUPERVISOR MAINTENANCE availability and will follow for support and resources. documented in this encounter Plan of Treatment Upcoming Encounters Date Type Department Care Team (Late st Contact Info) Description 03/21/2024 2:30 PM EDT Office Visit Hematology/Oncology at [address] [phone] Edgar Carreon MD [facility] DR [place] [address] Kadie Gaming APRN [facility] [place] [address] 05/15/2024 3:30 PM EST Office Visit Radiation Oncology at [address] [phone] Patsy Shelton MD [facility] [place] [address] documented as of this encounter Visit Diagnoses Not on filedocumented in this encounter Care Teams Business Information Consultant Relationship Specialty Start Date End Date Navid Avendaño MD [address] [place] [address] [address] [place] [address] PCP - General Family Medicine 01/24/19 documented as of this encounter
--- OUTSIDE RECORDS SUMMARY | 2024-02-29 01:30 | XMS_ITS | Encounter Summary ---
Author Organization [facility] [place] [address] Care Team Providers Care Substation Operator Automatic Name Role Phone Maya Burden MD Primary Care Provider [phone] Reason for Visit * Reason Comments Post Hospital Discharge Encounter Details Date Type Department Care Team (Latest Contact Info) Description 04/23/2015 11:00 AM EDT Office Visit [place] [address] Anthony Belle MD [facility] [place] [address] Endometrial cancer; Endometrial adenocarcinoma Social History Tobacco Use Types [...] Sign Reading Time Taken Comments Blood Pressure 140/72 04/23/2015 10:31 AM EDT Pulse - - Temperature - - Respiratory Rate - - Oxygen Saturation - - Inhaled Oxygen Concentration - - Weight 103.1 kg (227 lb 4.7 oz) 015 10:31 AM EDT Height - - Body Mass Index 44.39 03/28/2015 2:00 PM EDT documented in this encounter Progress Notes * Noelle Valdez MD - 04/23/2015 10:49 AM EDT Division [place] [address] Postoperative Visit: Patient Active Problem List Diagnosis Code ??? Endometrial adenocarcinoma C54.1 ??? Morbid obesity with BMI of 40.0-44.9, adult E66.01, Z68.41 ??? Anxiety F41.1 ??? Hypothyroidism E03.9 ??? 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 Sleep apnea G47.30 ??? Diabetes mellitus type 2, uncomplicated E11.9 Subjective: Myesha Santizo returns to the office today for her postoperative visit. On 03/28/2015 she underwenta robotic hysterectomy/BSO with cystoscopy for Stage 1A endometrial cancer, FIGO grade 1. Her postoperative course was uncomplicated. She has been doing well since surgery. She has stopped taking narcotic pain medications and is having regular bowel movements. She reports about one week ago seeing red staining on the toilet paper after straining for a bowel movement. She has continued to take herstool softener and this has not continued to happen. She reports a pink tinge to her urine if she holds it in too long. She denies any pain with urination or irritation. Her energy level is improving and she is eating well. She denies fevers, chills, dysuria, incisional concerns, abdominal pain, vaginal bleeding, nausea, vomiting or diarrhea. Objective: Filed Vitals: 04/23/15 1031 BP: 140/72 Weight: 103.1 kg (227 lb 4.7 oz) Body mass index is 44.39 kg/(m^2). Physical Exam Gen: She is in no acute distress, pleasant obese female. Daughter is accompanying her CV: regular rate and rhythm without murmurs/rubs/gallops Pulm: lungs are clear to auscultation bilaterally without wheezes or crackles Abd: soft, non-tender Incisions: port-site incisions are healing well without erythema, discharge, scabs over left-sided port sites Pelvic: pt is able to position on table without assistance. Normal-appearing external genitalia with normal hair distribution. On speculum exam, the cuff appears intact with minimal amounts of serosanguineous drainage. No pus drainage or concern for infection. Ext: no edema or erythema in lower extremities Surgical Pathology: Endometrial carcinoma, endometriod type. FIGO grade 1 Tumor size 2.5cm <1/2 myometrial invasion No lymphovascular, lower uterine segment, or cervical involvement Assessment and Plan: Myesha Santizo is a 69 y.o. with stage 1A endometrial cancer, FIGO grade 1. She is doing well postoperatively and is advised that she may resume full activities at this time. Nothing in the vagina for 8 weeks. I reviewed her pathology with her and have given her copies of her pathology report and operative note for her records. Given her diagnosis of early stage, low grade endometrial cancer, she is at low risk of recurrence,<5% over the remainder of her lifetime and thus no adjuvant therapy is advised at this time, specifically, no chemotherapy or radiation. Recommendations for surveillance of low risk disease (stage IA, grade 1 or 2) include follow-up visits every 6 months for one year and yearly thereafter. These visits will include pelvic exam with visualization of the vaginal apex as well as a bimanual/rectovaginal exam. [Current Society of Gynecologic Oncologists (SGO) Surveillance Guidelines: Posttreatment surveillance and diagnosis of recurrence in women with gynecologic malignancies: Society of Gynecologic Oncologists recommendations (Tomasa, et al; AJOG, December 2010)]. I again reviewed with her that this is an obesity-related cancer and that we recommend lifestyle changes to promote weight loss. While she has now been treated for endometrial cancer, she remains at risk for liver, colorectal, pancreatic, and gallbladder cancer, all ofwhich are also obesity related. We reviewed that as she is low risk for recurrence, she may do this surveillance with her primary teletype or varitype keyboard operator, Dr. Hebert for her surveillance or that she is welcome to return to this clinic for surveillance. As always, we are available for any further questions or concerns. Patient seen/examined and plan formulated with Dr. Belle, benefits specialist recruiter oncologist NOELLE VALDEZ MD PGY2 04/23/2015 I saw and evaluated the patient with Dr. Valdez, and I confirmed the history and physical findings as outlined, and I agree with the note as written. documented in this encounter Plan of Treatment Upcoming Encounters Date Type Department Care Team (Late st Contact Info) Description 03/21/2024 2:30 PM EDT Office Visit Hematology/Oncology at [address] [phone] Edgar Carreon MD [facility] [place] [address] Kadie Gaming APRN [facility] [place] [address] 05/15/2024 3:30 PM EST Office Visit Radiation Oncology at [address] [phone] Patsy Shelton MD [facility] [place] [address] documented as of this encounter Visit Diagnoses Diagnosis Endometrial cancer Malignant neoplasm of corpus uteri, except isthmus Endometrial adenocarcinoma Malignant neoplasm of corpus uteri, except isthmus documented in this encounter Care Teams Substation Operator Automatic Relationship Specialty Start Date End Date Maya Burden MD [address] [place] [address] PCP - General 05/27/10 01/23/19 documented as of this encounter
--- OUTSIDE RECORDS SUMMARY | 2024-02-29 01:30 | XMS_ITS | Encounter Summary ---
Author Organization [facility] [place] [address] Care Team Providers Care Print Buyer Name Role Phone Navid Avendaño MD Primary Care Provider [phone] Encounter Details Date Type Department Care Team (Late Contact Info) Description 02/23/2019 Orders Only Hematology/Oncology at [address] [phone] Ivana Rossi [address] [address] Endometrial adenocarcinoma Social History Tobacco Use [...] PM EDT Office Visit Hematology/Oncology at [address] [phone] Edgar Carreon MD [facility] [place] [address] Kadie Gaming POWDER COATER [facility] [place] [place] [address] 05/15/2024 3:30 PM EST Office Visit Radiation Oncology at [address] [phone] Patsy Shelton MD [facility] [place] [address] documented as of this encounter Visit Diagnoses Diagnosis 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
--- OUTSIDE RECORDS SUMMARY | 2024-02-29 01:30 | XMS_ITS | Encounter Summary ---
Author Organization [facility] Address [facility] [place] [place] [address] Care Team Providers Care Latin American Studies Director Name Role Phone Navid Avendaño MD Primary Care Provider [phone] Encounter Details Date Type Department Care Team (Late st Contact Info) Description 05/15/2019 Notes Only Radiation Oncology at [address] [phone] Patsy Shelton MD [facility] [place] [address] Social History Tobacco Use Types Packs/Day Years [...] Progress Notes * Patsy Shelton MD - 05/15/2019 11:59 PM EST Myesha Santizo has completed xrt for breast ca, L, IDC w/dominant pattern of micropapillary ca, 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 S/p 1 cycle docetaxel/cyclophosphamide followed by discontinuation of chemo after infusion rxn to 2nd cycle. The course of xrt is summarized as follows: Treatment was given from 04/03/19 to 05/15/19. 50 Gy in 25 fxs was given to L supraclavicular fossa & L axilla with 10 MV Xray external beam & to L chest wall with 6 & 10 MV Xray external beam using deep inspiration breath hold (DIBH), followed by volume reduction & 10 Gy/5 fxs to mastectomy scar given free breathing using 9 MeVelectron beam, boosting mastectomy scar to 60 Gy/30 fxs. 3D xrt used throughout treatment. The course of xrt was tolerated well, w/the expected side effect of skin reaction within irradiatedarea managed w/mepilex-lite, saline soaks, aloe, opal's cream, silvadene & skintegrity. Baking soda & salt mouth rinse/gargle used for oral cold sore & xrt assoc'd pharyngitis/esophagitis. Exam near completion of xrt showed 0.3 cm superficial ulcer anterior inferior gingiva, consistent w/viral etiology. Brisk erythema irradiated area, skin intact. FU w/me in 1-[address] Carreon 05/30/19. documented in this encounter Plan of Treatment Upcoming Encounters Date Type Department Care Team (Late st Contact Info) Description 03/21/2024 2:30 PM EDT Office Visit Hematology/Oncology at [address] [phone] Edgar Carreon MD [facility] DR [place] [address] Kadie Gaming APRN [facility] [place] [address] 05/15/2024 3:30 PM EST Office Visit Radiation Oncology at [address] [phone] Patsy Shelton MD [facility] [place] [address] documented as of this encounter Visit Diagnoses Not on filedocumented in this encounter Care Teams Latin American Studies Director Relationship Specialty Start Date End Date Navid Avendaño MD [address] [place] [address] [address] [place] [address] PCP - General Family Medicine 01/24/19 documented as of this encounter
--- OUTSIDE RECORDS SUMMARY | 2024-02-29 01:30 | XMS_ITS | Encounter Summary ---
Author Organization [facility] [place] [address] Care Team Providers Care Research Microbiologist Name Role Phone Navid Avendaño MD Primary Care Provider [phone] Reason for Visit * Reason Onset Date Comments Questions 03/15/2019 Question re upco shakila appointment Encounter Details Date Type Department Care Team (Late st Contact Info) Description 03/15/2019 Telephone Hematology/Oncology at [address] [phone] Candice Lozano, RN Questions (Question re upcoming appointment) Social History Tobacco Use Types Packs/Day Years [...] encounter Miscellaneous Notes * Telephone Encounter - Candice Lozano RN - 03/15/2019 10:03 AM EDT Returned call to daughter Geovanna. Myesha had a significant reaction to Docetaxel 03/14/19 and is currently inpatient at [facility]. Geovanna is inquiring what next steps are. 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 It is unknown how long she will be inpatient. The thermal technician for Dr. Carreon is working on a follow up appointment for the patient to see Dr. Carreon and is aware to call Geovanna who will be bringing Myesha to the appointment. Outcome of call: [place] will call Geovanna with appointment date and time. Geovanna verbalizes understanding and has no further questions. Dr. Carreon is updated with this note. documented in this encounter Plan of Treatment Upcoming Encounters Date Type Department Care Team (Late st Contact Info) Description 03/21/2024 2:30 PM EDT Office Visit Hematology/Oncology at [address] [phone] Edgar Carreon MD [facility] DR HEMATOLOGY [place] [address] Kadie Gaming APRN [facility] [place] [address] 05/15/2024 3:30 PM EST Office Visit Radiation Oncology at [address] [phone] Patsy Shelton MD [facility] [place] [address] documented as of this encounter Visit Diagnoses Not on filedocumented in this encounter Care Teams Research Microbiologist Relationship Specialty Start Date End Date Navid Avendaño MD [address] [place] [address] PCP - General Family Medicine 01/24/19 documented as of this encounter
--- OUTSIDE RECORDS SUMMARY | 2024-02-29 01:30 | XMS_ITS | Encounter Summary ---
Author Organization [facility] Address [facility] [place] [place] [address] Care Team Providers Care Clinical Cytogeneticist Scientist Name Role Phone Navid Avendaño MD Primary Care Provider [phone] Encounter Details Date Type Department Care Team ( Contact Info) Description 03/14/2019 Notes Only Hematology/Oncology at [address] [phone] Edgar Carreon MD [facility] DR HEMATOLOGY [place] [address] Social History Tobacco Use Types Packs/Day Years [...] Progress Notes * Edgar Carreon MD - 03/14/2019 4:45 PM EDT During docetaxel infusion the patient became unresponsive and hypotensive. Infusion was stopped. She regained consciousness but is single and heaviness/fullness in her chest. Dexamethasone and Pepcidwere given. Patient was sent to ER for further evaluation of syncope. We will discontinue further docetaxel and cyclophosphamide treatment. We will reevaluate here againin a week or two and send her to radiation oncology consideration of adjuvant radiation. I will seeher back after radiation for discussion of hormonal treatment. documented in this encounter Plan of Treatment Upcoming Encounters Date Type Department Care Team (Late Contact Info) Description 03/21/2024 2:30 PM EDT Office Visit Hematology/Oncology at [address] [phone] Edgar Carreon MD [facility] HEMATOLOGY [place] [address] Kadie Gaming APRN [facility] [address] [place] [address] 05/15/2024 3:30 PM EST Office Visit Radiation Oncology at [address] [phone] Patsy Shelton MD [facility] [place] [address] documented as of this encounter Visit Diagnoses Not on filedocumented in this encounter Care Teams Clinical Cytogeneticist Scientist Relationship Specialty Start Date End Date Navid Avendaño MD [address] [place], [place] [address] PCP - General Family Medicine 01/24/19 documented as of this encounter
--- OUTSIDE RECORDS SUMMARY | 2024-02-29 01:30 | XMS_ITS | Encounter Summary ---
Author Organization [facility] Address [facility] [place] [address] Care Team Providers Care Fixer Boarding Room Name Role Phone Maya Burden MD Primary Care Provider [phone] Encounter Details Date Type Department Care Team (Latest Contact Info) Description 12/21/2018 3:33 PM EDT - 12/21/2018 11:59 PM EDT Hospital [place] [address] Discharge Disposition: Home Social History Tobacco Use [...] PM EDT Office Visit Hematology/Oncology at [address] [phone] Edgar Carreon MD [facility] [place] [address] Kadie Gaming APRN [facility] [place] [address] 05/15/2024 3:30 PM EST Office Visit Radiation Oncology at [address] [phone] Patsy Shelton MD [facility] [place] [address] documented as of this encounter Procedures Procedure Name Priority Date/Time Associated Diagnosis Comments SURGICAL PATHOLOGY REPORT Routine 12/21/2018 3:33 PM EDT documented in this encounter Results * Surgical Pathology Report (12/21/2018 3:33 PM EDT) Final Diagnosis [id number] ? Location: [facility] The signing pathologist has (i) examined the relevant preparation(s) for the specimen(s) and (ii) rendered or confirmed the diagnosis(es). . ?Surgical Pathology DIAGNOSIS CONSULTATION CASE A ??- Outside slide(s) labeled [id number], collection date 11/11/2018. 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 - Ductal carcinoma in-situ (DCIS), high nuclear grade, papillary/micropa pillary with necrosis. On submitted slides (reviewed) - ER immunoreactivity: Positive (>90% cancer cells with immunostaining) Stain intensity: Intermediate and Strong [place] immunoreactivity: Positive (>90% cancer cells with immunostaining) Stain intensity: Strong HER2 IHC - Per report, 1+/Negative B ??- Outside slide(s) labeled [id number], collection date 12/07/2018. 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 - Ductal carcinoma in-situ (DCIS), high grade with comedonecrosis. - See Synoptic report. B - Lymph node, Hayden #1, left axillary, excision (4 slides labeled B)- - Metastatic carcinoma to one of two lymph nodes. - The anita metastasis measures 1.9 cm. - Extranodal invasion is present. 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 C - Lymph node, left axilla, excision (3 slides labeled C)- - One benign node. D - Lymph node, Hayden #2, left axillary, excision (1 slide labeled D)- - One benign node. E - Lymph node, Hayden #3, left axillary, excision (2 slides labeled E)- - Two benign nodes. F - Medial Skin edge, excision (2 slides labeled F) - - Benign skin and subcutis. Specimen ? Procedure: ??Total mastectomy ? Specimen Laterality: ?? Left Tumor ? Histologic Type: ?? Invasive carcinoma of no special type (ductal, not ?otherwise specified) ? Histologic Type Comments: ?? with micropapillary features ? Histologic Grade ([place] Histologic Score) ?Glandular (Acinar) / Tubular Differentiation: ?Score 3 . DIAGNOSIS ?Nuclear Pleomorphism: ?? Score 3 ?Diameter of Microscope Field in Millimeters (mm): ?0.55 mm ?Mitotic Rate: ?? Score 3 (>=8 mitoses per mm2) ?Overall Grade: ?? Grade 3 (scores of 8 or 9) ? Tumor Size: ?? 27 Millimeters (mm) ? Ductal Carcinoma In Situ (DCIS): ?Present ?Architectural Patterns: ?? Micropapillary, Papillary, Solid ?Nuclear Grade: ?? Grade III (high) ?Necrosis: ??Present, central (expansive comedo necrosis) ? Tumor Extent ?Skin: ??Invasive carcinoma does not invade into the dermis or epidermis ?Skin Satellite Foci: ?? Satellite foci not identified ?Nipple DCIS: ??DCIS does not involve the nipple epidermis ?Skeletal Muscle: ?? No skeletal muscle is present ? Accessory Findings ?Lymphovascular Invasion: ?? Not identified ?Treatment Effect: ?? No known presurgical therapy Margins ? Invasive Carcinoma Margins: ?? Uninvolved by invasive carcinoma ?Distance from Other Specified Margin: ?From all RM > 10 Millimeters (mm) ? DCIS Margins: ?? Uninvolved by DCIS ?Distance of DCIS to Anterior Margin: ?5 Millimeters (mm) ?Distance from Other Specified Margin: ?From all other RM > 10 Millimeters ? (mm) Lymph Nodes ? Regional Lymph Nodes: ?? Involved by tumor cells ?Number of Lymph Nodes with Macrometastases: ?1 ?Number of Lymph Nodes with Micrometastases: ?0 ?Number of Lymph Nodes with Isolated Tumor Cells: ?1 ?Size of Largest Metastatic Deposit: ?19 Millimeters (mm) ?Extranodal Extension: ?? Present ?Number of Lymph Nodes Examined: ?6 ?Number of Hayden Nodes Examined: ?5 Pathologic Stage Classification (pTNM, AJCC 8th Edition) ? Primary Tumor (Invasive Carcinoma) (pT): ?pT2 ? Regional Lymph Nodes (pN) ?Category (pN): ?? pN1a CAP eCC August 2017 Agile Release Electronically signed by: ??Taylor Alejandro DO Verified: ??12/26/2018 ?Pathologist Performed at: ??-[facility] Dept. [facility]ology, [place], [place] CLINICAL INFORMATION Specimen Submitted: CONSULTATION CASE A - 6 slide(s) labeled [id number], collection date 11/11/2018. B - 34 slide(s) labeled [id number], collection date 12/07/2018. [id number] Report to: [facility] Surgical Pathology Department [facility], [place] [address], [address] [place], [place] ??[address] . SPECIMEN PROCESSING [facility] ([facility]) pathology slide(s) are reviewed. ??Refer to Diagnosis and Specimen Submitted for specific case information. For the full text of the [facility] ([facility]) report(s) please refer to Non-DH Documentation Pathology in the electronic health record (eDH). 12/26/2018 1:31 PM EDT [facility] Consult Case 12/21/2018 3:33 PM EDT 12/21/2018 3:33 PM EDT Consult Case 12/21/2018 3:33 PM EDT 12/21/2018 3:33 PM EDT Edgar Carreon MD PATHOLOGY/CYTOLOGY O RDERABLES Performing Organization Address City/State/[facility] Co de Phone Number [facility] [place] [address] documented in this encounter Visit Diagnoses Not on filedocumented in this encounter Care Teams Fixer Boarding Room Relationship Specialty Start Date End Date Maya Burden MD [address] [place] [phone] PCP - General 05/27/10 01/23/19 documented as of this encounter
--- OUTSIDE RECORDS SUMMARY | 2024-02-29 01:30 | XMS_ITS | Encounter Summary ---
Author Organization [facility] Address [facility] [place] [address] Care Team Providers Care Disintegrator Feeder Name Role Phone Navid Avendaño MD Primary Care Provider [phone] Reason for Visit * Reason Comments On Treatment Visit Encounter Details Date Type Department Care Team (Late st Contact Info) Description 05/02/2019 9:45 AM EDT Office Visit Radiation Oncology at [address] [phone] Patsy Shelton MD [facility] [place] [address] Malignant neoplasm of lower-inner quadrant of left [...] Sign Reading Time Taken Comments Blood Pressure 131/77 05/02/2019 9:00 AM EDT Pulse 87 05/02/2019 9:00 AM EDT Temperature 36.8 ??C (98.3 ??F) 05/02/2019 9 :00 AM EDT Respiratory Rate 18 05/02/2019 9:00 AM EDT Oxygen Saturation 96% 05/02/2019 9:0 0 AM EDT Inhaled Oxygen Concentration - - Weight 104.5 kg (230 lb 6.4 oz) 9:00 AM EDT with shoes Height - - Body Mass Index 45 03/21/2019 11:04 AM EDT documented in this encounter Patient Instructions * Patient Instructions* Patsy Shelton MD - 05/02/2019 9:45 AM EDT Rinse mouth & gargle with baking soda & salt rinse 3 times/day. Put saline in frig to cool & then pour on gauze. Apply saline soaked gauze to irradiated skin & leave in place for 15 minutes. documented in this encounter Progress Notes * Patsy Shelton MD - 05/02/2019 9:45 AM EDT Images from the original note were not included. DIAGNOSIS: Breast ca, L, IDC w/dominant pattern of micropapillary ca, gr 3, ER+GA+, 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 S/p 1 cycle docetaxel/cyclophosphamide followed by discontinuation of chemo after infusion rxn to 2nd cycle. CURRENT TREATMENT DOSE: 42 Gy L supraclav, L axilla, L chest wall ANTICIPATED TOTAL DOSE: 50 Gy L supraclav, L axilla, L chest wall; 60 Gy mastectomy scar boost. Current # of xrt received: 21 L supraclav, L axilla, L chest wall Anticipated total # of xrt txs: 25 L supraclav, L axilla, L chest wall; 30 mastectomy scar boost Evaluation of port verification films: Approved. For details, see electronic film record in [employer]. Changes in Medical Condition: Increased soreness of irrad'd skin; silvadene metzger area; applies opal's cream & mepilex-lite to area. Sore on lower gum; past h/o cold sores. Still w/mild throat soreness. Pain?: See above. Your Medications Accurate as of May 02, 2019 10:13 AM. If you have any questions, ask [...] Cap Daily Refills: 0 Physical Exam: BP 131/77 (Patient Position: Sitting) Pulse 87 Temp 36.8 ??C (98.3 ??F) (Oral) Resp 18 Wt 104.5 kg (230 lb 6.4 oz) Comment: with shoes SpO2 96% BMI 45.00 kg/m?? BP 146/73. A&Ox3, NAD. Intraoral exam shows 1 cm superficial ulcer anterior inferior gingiva, consistent w/viral etiology. Moderate erythema irrad'd area, skin intact. Amb stable w/cane. Imagin03/21/19 Dx'ic Rad Interp CTsim: Left mastectomy changes. Mild enlargement of the spleen. Coronary artery atherosclerotic disease. ?? Performance Status: KPS 80%. Response to xrt: As expected. Irradiation Related Symptoms: Pharyngitis/esophagitis. Skin changes. Treatment for Symptom Control: Advised gargle w/baking soda & salt rinse (gave recipe) TID, avoid hot liqs/solids & avoid solids more difficult to swallow, eat softer solids. Stop silvadene, continue opal's cream & mepilex-lite, also given saline & gauze for saline soaks, aquaphor ointment & skintegrity. Pain Management: Tylenol arthritis tab prior to xrt. Recommendation on Continuing Course of xrt: Cont. Advised rinse mouth w/baking soda & salt rinse TID for cold sore on anterior inferior gingiva. documented in this encounter Plan of Treatment Upcoming Encounters Date Type Department Care Team (Late st Contact Info) Description 03/21/2024 2:30 PM EDT Office Visit Hematology/Oncology at [address] [phone] Edgar Carreon MD [facility] [place] [address] Kadie Metzger APRN [facility] [place] [place] [address] 05/15/2024 3:30 PM EST Office Visit Radiation Oncology at [address] [phone] Patsy Shelton MD [facility] [place] [address] documented as of this encounter Visit Diagnoses Diagnosis Malignant neoplasm of lower-inner quadrant of left female breast, unspecified estrogen receptor status documented in this encounter Care Teams Disintegrator Feeder Relationship Specialty Start Date End Date Navid Avendaño MD [address] [place] [address] PCP - General Family Medicine 01/24/19 documented as of this encounter
--- OUTSIDE RECORDS SUMMARY | 2024-02-29 01:30 | XMS_ITS | Encounter Summary ---
Author Organization [facility] Address [facility] [place] [place] [address] Care Team Providers Care Retail Greeting Card Merchandiser Name Role Phone Maya Gambino MD Primary Care Provider [phone] Encounter Details Date Type Department Care Team (Latest Contact Info) Description 03/28/2015 1:33 PM EDT - 03/29/2015 2:07 PM EDT Hospital [place] [phone] Anthony Johns MD [facility] [place] [address] Discharge Disposition: Home Social History Tobacco Use [...] Myesha Santizo Patient Age: 69 y.o. Language: [place] Race: White Ethnicity: Not nor Admit date: 03/28/2015 Discharge date and time: 03/29/2015 Attending Physician: Anthony Johns MD Discharge Physician: Anthony Johns MD Follow-up Recommendations for Providers: Follow up appointment with Dr. Johns 04/23/15 at 11:00 AM Inpatient Provider Contact Information: Dr. Johns, [facility] Gynecologic Oncology, Discharge Diagnoses (Hospital Problems) [...] (FIGO grade 1) Pelvic U/S 01/30/15 from [facility] showed a thickened endometrial stripe (no measurement [...] at 11:00 AM Gynecology Oncology phone number: [phone] Call your doctor if you develop: --A [...] 11:00 AM Anthony Johns MD Gynecologic Oncology [phone] Discharge References/Attachments None Provider Contact Information: MAYA GAMBINO MD (General) [phone] documented in this encounter Discharge Instructions * Patient Instructions* Aliyah Izaguirre PA - 03/28/2015 4:25 PM EDT Images from the original note were not included. PATIENT DISCHARGE INSTRUCTIONS Follow up appointment with Dr. Johns: 04/23/15 at 11:00 AM Gynecology Oncology phone number: [phone] Call your doctor if you develop: --A [...] MD - 03/28/2015 3:00 PM EDT Inpatient HOSPICE TEAM LEAD - Admission Interval Note I have reviewed [...] (s) achieved Date Met: 03/29/15 03/29/15 1225 Hysterectomy Problems Assessed (Hysterectomy) all Problems Present [...] Outcome (s) achieved Date Met: 03/29/15 03/29/15 0340 Discharge Needs Assessment Concerns to be Addressed [...] as Appropriate) Goal: Fall Prevention-Safe Patient Handling 03/28/15 2250 03/29/15 0320 03/29/15 034 Musculoskeletal Interventions Activity/Level of Assistance -- -- [...] Johns MD - 03/28/2015 5:48 PM EDT [facility] Operative Note Patient Name: Myesha Santizo : [id number] MR#: [id number] Case Date: 03/28/2015 Surgeon: Surgeon(s) and Role: [...] was referred by Goldie Moore MD [address] [place] [address] for a new diagnosis of grade 1 [...] trocars and a 12-mm right upper quadrant administrative assistant office manager port were placed in the usual locations [...] PM EDT Office Visit Hematology/Oncology at [address] [phone] Edgar Carreon MD [facility] HEMATOLOGY [place] [address] Kadie Gaming APRN [facility] MEDICAL [place] [address] 05/15/2024 3:30 PM EST Office Visit Radiation Oncology at [address] [phone] Patsy Shelton MD [facility] [place] [address] documented as of this encounter Procedures Procedure Name Priority Date/Time Associated Diagnosis Comments LEAD MECHANIC SCAN 03/30/2015 12:00 AM EDT POCT GLUCOSE [...] in this encounter Results * SCAN DOC: LEAD MECHANIC (03/30/2015 12:00 AM EDT) Anatomical Region Laterality [...] Lab Anthony Johns MD HEMATOLOGY ORDERABLE S Performing Organization Address [facility] [[email or web address]] Co de Phone Number CERJUAN MILLENNIUM * (ABNORMAL) Hemogram (03/29/2015 4:59 AM EDT) [...] Lab Anthony Johns MD HEMATOLOGY ORDERABLE S Performing Organization Address City/[facility]/ZIP Co de Phone Number CERNER MILLENNIUM * (ABNORMAL) Basic Metabolic Panel (non-fasting) (03/29/2015 4:59 AM EDT) Glucose 165 65 - 199 mg/dL CERNER MILLENNIUM Comment:Diabetes: >=200 mg/d L plus symptoms Blood Urea Nitrogen 13 8 - 18 mg/dL CERNER MILLENNIUM Creatinine 1.03 0.70 - 1.20 mg/dL CERNER MILLENNIUM Comment: Please note that the pediatric reference intervals supplied above were not validated at [facility]. Results from pediatric patients should be interpreted [...] the following links into your internet browser. [email or web address] Blood specimen (specimen) 03/29/2015 4:59 AM EDT 03/29/2015 5:46 AM EDT Narrative Resulting Agency Comment Spec In Lab Anthony Johns MD CHEMISTRY ORDERABLES LAURE THOMPSON * POCT Glucose (03/28/2015 8:38 PM EDT) [facility] Signature Glucose, POC 177 65 - 199 mg/dL CERNER MILLENNIUM Comment: Supplemental ranges: <140 mg/dL before meals <180 mg/dL all other times of the day Blood specimen (specimen) 03/28/2015 8:38 PM EDT 03/28/2015 8:38 PM EDT Anthony Johns MD POINT OF CARE TEST O RDERABLES [facility] * Surgical Pathology Report (03/28/2015 4:55 PM EDT) Final Diagnosis The signing pathologist has (i) examined the relevant preparation(s) for the specimen(s) and (ii) rendered or confirmed the diagnosis(es). Accession Number: [id number] ?Location: BP; BP10; B . ? 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 04/03/15 [facility] 04/03/15 Verified by: ? Shane Galvez MD [...] supplemental report will follow. Scanned slides: [id number] CLINICAL INFORMATION Specimen Submitted: A - [...] Myometrium: Trabecular; 1.5 cm in thickness. Serosa: [place], smooth and glistening. Cervix: 2.5 cm in [...] is surfaced by fibrous adhesions. SECTIONS/PROCESSING: A service support representative section of the tumor is submitted for frozen section as FS 1. ??A service support representative section of the TRAV is submitted [...] studies, if any. 04/03/2015 9:11 AM EDT [facility] Uterine Corpus 03/28/2015 4: 55 PM EDT 03/28/2015 4:55 PM EDT Anthony Johns MD PATHOLOGY/CYTOLOGY O JORGE Performing Organization Address [facility] [[email or web address]] Co de Phone Number ORIONJUAN THOMPSON [facility] [place] [address] * Specimen to Pathology (surgical or derm) (03/28/2015 4:53 PM EDT) AP Specimen 03/28/2015 4:53 PM EDT 03/28/2015 4:53 PM EDT Narrative LAURE THOMPSON - 03/28/2015 4:53 PM EDT Specimen requisition ordered. ??Separate Pathology report to follow Anthony Johns MD PATHOLOGY/CYTOLOGY O JORGE Performing Organization Address [facility] de Phone Number LAURE THOMPSON * POCT Glucose (03/28/2015 2:03 PM EDT) Glucose, POC 119 65 - 199 mg/dL LAURE JAY Comment: Supplemental ranges: <140 mg/dL before meals <180 mg/dL all other times of the day Blood specimen (specimen) 03/28/2015 2:03 PM EDT 03/28/2015 2:03 PM EDT Anthony Johns MD POINT OF CARE TEST O RDFELI Performing Organization Address 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, except isthmus Diabetes mellitus type 2, uncomplicated Type II or unspecified type diabetes mellitus without mention of complication, not stated as uncontrolled documented in this encounter Administered Medications Inactive Administered Medications - up to 3 most recent administrations Medication Order MAR Action Action Date Dose Rate Site docusate sodium (COLACE) oral liquid 100 [...] Celina 03/28/15 at 1759, Until Wed03/28/15 at 2034, For moderate pain (4-6) give: 0.2 mg [...] Wed03/29/15 at 0459, Recovery (Recovery-Hospital Unit) New Bag 03/28/2015 8:33 PM EDT 1,000 mLs [...] on Wed03/28/15 at 2330, Until Discontinued, Routine 233 (Not Given - Provider: Emma Veras RN - Reason: Patient/family refused) 0822 (Given - Provider: Nadia Chandler RN) esomeprazole [...] Rosario RN) 0030 (Given - Provider: Emma Vreas RN) levothyroxine (SYNTHROID) tablet 75 mcg (CANCELED) 75 [...] Starting on Celina 03/28/15 at 1815, Until Celina 03/28/15 at 2033, PACU Recovery 2032 (Continued Bag - Provid er: Sophie Rosario RN) lactated ringers infusion 1,000 mL () 1,000 mL, at 100 mL/hr, Intravenous, CONTINUOUS, Starting on Celina 03/28/15 at 1900, Until Wed03/29/15 at 0459, Recovery [...] Starting on Celina 03/28/15 at 1759, Until Celina 03/28/15 at 2033, For moderate pain (4-6) give: 0.2 mg every 5 minute prn For severe pain (7-10) give: 0.4 mg every 5 minutes prn Maximum dose: 4 mg per hour Hold for respiratory rate less than 10 per minute., PACU Recovery 185 (Given - Provider: Sophie Rosario, BRANDON)1913 (Given [...] Celina 03/28/15 at 2330, Until Discontinued, Routine And sennosides (SENOKOT) 8.8 mg/5 mL oral syrup 17.6 mg (CANCELED) 17.6 mg, Oral, 2 TIMES DAILY, First dose on Celina 03/28/15 at 2330, Until Discontinued, Routine Group 2: [...] Routine documented in this encounter Care Teams Retail Greeting Card Merchandiser Relationship Specialty Start Date End Date Maya Gambino MD [address] [place] [address] PCP - General 05/27/10 01/23/19 documented as of this encounter
--- OUTSIDE RECORDS SUMMARY | 2024-02-29 01:30 | XMS_ITS | Encounter Summary ---
Author Organization [facility] Address [facility] [address] [place] [address] Care Team Providers Care Air Transportation Provider Name Role Phone Navid Avendaño MD Primary Care Provider [phone] Reason for Visit * Consultation (Routine) - [...] CONSULT CONTINUING PRG RADIATION MANAGEMENT, 5 TREATMENTS [id number] Patsy Shelton MD [facility] [place] [address] [facility] Rad Onc Office [address] [place] [phone] Referral ID Status Reason Start Date Expiration Date V isits Requested Visits Authorized [id number] Closed Consult, Test & Treat 03/20/2019 03/19/2020 1 1 Encounter Details Date Type Department Care Team (Latest Contact Info) Description 03/21/2019 11:30 AM EDT Ancillary Appointment Radiation Oncology at [address] [phone] Patsy Shelton MD [facility] [place] [address] Malignant neoplasm of lower-inner quadrant of left [...] this encounter Patient Instructions * Patient Instructions* Celeste Flynn RN - 03/21/2019 11:30 AM EDT Information for Patients receiving radiation therapy to the Breast Please stop taking Vitamin E during radiation treatment Approximately two weeks after your first treatment, you may begin to experience side effects causedby the radiation. These effects may continue throughout the treatment period and not start improving until 1-2 weeks after treatment is completed. Your doctor will tell you which side effects you aremost likely to experience, when you will notice them and how long they might last. It is important to follow the appropriate instructions to minimize your discomfort. Skin Care ??? Wash skin in the treatment field with lukewarm water and mild or moisturizing, unscented soap daily. Blot skin dry with a soft towel. ??? Do not apply any ointment, salve, deodorant, perfume, cologne, cosmetic or self-remedy to the treatment area while you are undergoing radiation and for 1-2 weeks following treatment. An all natural deodorant with no aluminum can be used if necessary. ??? Moisturizing cream will be provided for you. This may be used in the treatment area once daily beginning on your first treatment day. Do not apply 2 hours before your radiation treatments. As dryness/redness develop you can use this more often. ??? Do not rub or scratch the skin in the treatment field. This includes shaving unless you use an electric razor. If your skin becomes dry or itchy, tell your nurse or doctor. If necessary, your doctor may order a medication specifically for this problem. ??? Do not use hot water bottles, heating lights, electric heating pads, or hot packs to the treatment area. ??? Keep treated areas out of the sun throughout the treatment period. Be careful of sun exposure to the treatment field for one year following treatment. Please use SPF> 30 to all exposed areas of skin and limit sun exposure. ??? Avoid tight fitting clothes. We would prefer that you wear a cotton t-shirt instead of a bra. If you are unable to go without a bra please wear a soft cotton bra without underwire. ??? Examine your skin in the treatment area daily and watch for changes. If you cannot reach the whole treatment field ask a family member to look at it and apply cream as needed. Be careful to keep the area under your breast clean and dry as this area can get irritated first. ??? You will meet with your nurse and doctor weekly. They will check your skin and help you with any side effects you are having. Please ask to see the nurse if you have concerns in between these days. ??? During the last weeks of treatment you may notice some peeling of skin and/or a moist reaction.Be sure to let us know if this happens so we can provide you with further skin care instructions.. ??? Continue to stay active, walk daily, eat healthy foods and drink several glasses of water each day. Fatigue You may notice that you feel unusually tired towards the end of treatment. This is not unusual. We recommend that you pace your activities and plan for rest periods to avoid becoming over-tired. Feel free to direct any questions or concerns you may have related to your treatment to your nurse or doctor. [facility] Radiation Oncology Our normal business hours are: Wednesday - Wednesday 8 AM to 5 PM [place], [place], [place] For emergent situations after hours please call for either location and ask for the Radiation Oncologist personal attendant. documented in this encounter Progress Notes * Celeste Flynn RN - 03/21/2019 11:30 AM EDT Radiation Oncology Simulation Note Myesha Santizo is here for radiation planning , undergoing a simulation to the left chest, axilla, supraclavicular fossa for breast cancer treatment . Usual radiation oncology routines and purpose of on treatment visits were explained. Jeans cream provided and instructions for use reviewed Anticipatory Guidance: Please see AVS. Barriers to Treatment/ Compliance issues identified:None identified Patient confirms they can have no difficulties lying flat. pre- medication plan made: None needed. Referrals: SURGICAL SERVICES MANAGER per routine * Patsy Shelton MD - 03/21/2019 11:30 AM EDT Here for sim. Sim: Custom vac bag w/breast bd immobilization; flat bbs on mastectomy & drain site scars; CT through chest showed heart to approach chest wall & so she was then instructed in deep inspiration breath hold (DIBH) & 2nd CT done w/DIBH; 3D xrt planned. She tolerated sim well, w/o problem. Tx Plan: 3D xrt. Start xrt 1-2 wks. She has been advised to not take vit E during xrt. documented in this encounter Plan of Treatment Upcoming Encounters Date Type Department Care Team (Late st Contact Info) Description 03/21/2024 2:30 PM EDT Office Visit Hematology/Oncology at [address] [phone] Edgar Carreon MD [facility] DR HEMATOLOGY [place] [address] Kadie Gaming APRN [facility] [place] [address] 05/15/2024 3:30 PM EST Office Visit Radiation Oncology at [address] [phone] Patsy Shelton MD [facility] [place] [address] documented as of this encounter Visit Diagnoses Diagnosis Malignant neoplasm of lower-inner quadrant of left female breast, unspecified estrogen receptor status documented in this encounter Care Teams Air Transportation Provider Relationship Specialty Start Date End Date Navid Avendaño MD [address] [facility] [address] [place] [address] PCP - General Family Medicine 01/24/19 documented as of this encounter
--- OUTSIDE RECORDS SUMMARY | 2024-02-29 01:30 | XMS_ITS | Encounter Summary ---
Author Organization [facility] Address [facility] [address] [place] [address] Care Team Providers Care Putty And Caulking Supervisor Name Role Phone Navid Avendaño MD Primary Care Provider [phone] Reason for Visit * Reason Comments Chemotherapy Cycle 2 Day 1 Doceta xel, Cytoxan * Treatment/Therapy Plan Authorization (Routine) - Closed Specialty Diagnoses / Procedures Referred By Contgabbi t Referred To Contact Diagnoses Breast cancer, stage 2, left Procedures TC PALONOSETRON HCL, 25MCG, INJECTION (ALOXI) TC CYCLOPHOSPHAMIDE, 100MG (CYTOXAN) TC DOCETAXEL, 1MG, INJECTION TC PEGFILGRASTIM, 6MG, INJECTION Edgar Carreon MD [facility] [address] [place] [address] [facility] Hem Onc Office [address] [place] [phone] Referral ID Status Reason Start Date Expiration Date Visits Re quested Visits Authorized [id number] Closed 02/03/2019 02/03/2020 6 6 Encounter Details Date Type Department Care Team (Late st Contact Info) Description 03/14/2019 11:00 AM EDT Infusion Hematology Oncology at [address] [phone] Breast cancer, stage 2, left Social History [...] as of this encounter Progress Notes * Delmis Dewey RN - 03/14/2019 11:00 AM EDT INFUSION THERAPY ADMINISTRATION NOTES DIAGNOSIS: Endometrial Cancer CYCLE #2: Day 1 REASON FOR VISIT: Docetaxel + Cyclophosphamide + Neulata OnPRO SUBJECTIVE Myesha Santizo offers no complaints. OBJECTIVE LAB DATA: Reviewed with Monika Rossi APRN in clinic and WNL for treatment today. IV ACCESS: PIV #24 in left FA Pre administration: Chemotherapy orders independently verified for drug name, route, and dosage per patient's height, weight and BSA by Delmis Dewey RN & on-site pharmacist. REACTIONS (DESCRIPTION, TIME, INTERVENTION AND EFFECTIVENESS) Pts neighbor in the chair next to her put on his call kimbrough. Candice Lozano RN noticed the pt havingdifficulty. The chair neighbor states Myesha stood up, stated she felt hot, collapsed back in her chair and convulsed 1252 Pt found to be slumped in chair, pale, difficulty breathing, unresponsive and foaming at the mouth. Docetaxel stopped (57.9cc infusion at this time), NS bolus started. Emily pond called. Team in room including EVERARDO and MD. BP manual at 82/50, HR 108 Within a minute, Myesha became responsive, she stated she was feeling hot and almost passed out. BP 126/ 50, HR 108 O2 sat 91% oxygen applied 1257 BP 140/65, HR 100 Resp 16 1258 ambulance arrived 1300 Dexamethsone 10mg given 1305 Pepcid 20mg given Pt transferred to ambulance stretcher, she still felt wheezy, O2 still on 3L NC. Attempted to call report to ED, only trade union secretary available to speak with me, I told her the medication that she was receiving and I also faxed info to them at [phone]. Pt did not receive Cytoxan or OnPro. ASSESSMENT Myesha Santizo was sent to [facility] ED via ambulance. PLAN Return to clinic per routine. documented in this encounter Plan of Treatment Upcoming Encounters Date Type Department Care Team (Late st Contact Info) Description 03/21/2024 2:30 PM EDT Office Visit Hematology/Oncology at [address] [phone] Edgar Carreon MD [facility] DR HEMATOLOGY [place] [address] Kadie Gaming APRN [facility] [place] [address] 05/15/2024 3:30 PM EST Office Visit Radiation Oncology at [address] [phone] Patsy Shelton MD [facility] [place] [address] documented as of this encounter Procedures Procedure Name Priority Date/Time Associated Diagnosis Comments LAB SCAN 03/14/2019 12:00 AM EDT documented in this encounter Results * SCAN DOC: LAB (03/14/2019 12:00 AM EDT) Narrative 03/14/2019 12:00 AM EDT Ordered by an unspecified provider. Scanning Provider MEDIA MGR SCAN EXT O RDR/RSLT documented in this encounter Visit Diagnoses Diagnosis Breast cancer, stage 2, left documented in this encounter Administered Medications Inactive Administered Medications - up to 3 most recent administrations Medication Order MAR Action Action Date Dose Rate Site dexamethasone (DECADRON) injection 10 mg 10 mg, Intravenous, ONCE, 1 dose, On Wed03/14/19 at 1115, Administer 60 minutes prior to DOCEtaxel Given 03/14/2019 11:24 AM EDT 10 mg dexamethasone (DECADRON) injection 4 mg 4 mg, Intravenous, ONCE, 1 dose, On Wed03/14/19 at 1530 Given 03/14/2019 1:00 PM EDT 10 mg diphenhydrAMINE (BENADRYL) capsule 50 mg 50 mg, Oral, ONCE, 1 dose, On Wed03/14/19 at 1115, Administer 60 minutes prior to DOCEtaxel, Routine Given 03/14/2019 11:18 AM EDT 50 mg DOCEtaxel (TAXOTERE) 160 mg in sodium chloride 0.9% Non-PVC 258 mL chemo infusion 160 mg, Intravenous, ONCE, 1 dose, On Wed03/14/19 at 1215, Administer over 60 Minutes, Warning Vesicant/Irritant Medication New Bag 03/14/2019 12:39 PM EDT 160 mg 258 mL/hr famotidine (PEPCID) injection 20 mg 20 mg, Intravenous, ONCE, 1 dose, On Wed03/14/19 at 1115, Administer 60 minutes prior to DOCEtaxel Given 03/14/2019 11:24 AM EDT 20 mg famotidine (PEPCID) injection 20 mg 20 mg, Intravenous, ONCE, 1 dose, On Wed03/14/19 at 1530, IV push over 1 minute once., Routine Given 03/14/2019 1:05 PM EDT 20 mg LORazepam (ATIVAN) tablet 0.5 mg 0.5 mg, Oral, ONCE, 1 dose, On Wed03/14/19 at 1115, Administer prior to chemotherapy, Routine Given 03/14/2019 11:18 AM EDT 0.5 mg palonosetron (ALOXI) injection 0.25 mg 0.25 mg, Intravenous, ONCE, 1 dose, On Wed03/14/19 at 1115, Administer over 30 seconds. Administer prior to chemotherapy., Routine Given 03/14/2019 11:21 AM EDT 0.25 mg sodium chloride 0.9% infusion 500 mL, Intravenous, CONTINUOUS, Starting on Wed03/14/19 at 1530, Until Wed03/14/19 at 1737, Ensure patent IV access to keep vein open New Bag 03/14/2019 12:55 PM EDT 500 mLs 999 mL/hr documented in this encounter Care Teams Putty And Caulking Supervisor Relationship Specialty Start Date End Date Navid Avendaño MD [address] [place] [address] PCP - General Family Medicine 01/24/19 documented as of this encounter
--- OUTSIDE RECORDS SUMMARY | 2024-02-29 01:30 | XMS_ITS | Encounter Summary ---
Author Organization [facility] [place] [address] [place] [address] Care Team Providers Care Laborer Shaft Sinking Name Role Phone Maya Burden MD Primary Care Provider [phone] Encounter Details Date Type Department Care Team (Late Contact Info) Description 03/01/2015 11:00 AM EDT Clinical [place] [address] Social History Tobacco Use Types Packs/Day Years Used Date Smoking Tobacco: Never Smokeless Tobacco: Never Alcohol Use Standard Drinks/Week Comments No 0 (1 standard drink = 0.6 oz pur e alcohol) Sex and Gender Information Value Date Recorded Sex Assigned at Not on file Gender Identity Not on file Sexual Orientation Not on file documented as of this encounter Progress Notes * Nilda Veloz RN - 03/01/2015 11:28 AM EDT PAT questionnaire reviewed with patient while in Pre Admission testing.Daughtor with pt. Pre-operative instruction booklet reviewed. Patient verbalizes a good understanding of all information reviewed. Pt sees a chronic pain DrAnaya closer to her home, for nerve pain. Will also be bringing her CPAP in. PLAN: Testing: lab Special medication instructions: Procedure date: 03-[address] Christiane Belle. documented in this encounter Plan of Treatment Upcoming Encounters Date Type Department Care Team (Late st Contact Info) Description 03/21/2024 2:30 PM EDT Office Visit Hematology/Oncology at [address] [phone] Edgar Carreon MD [facility] DR HEMATOLOGY [place] [address] Kadie Gaming APRN [facility] [place] [address] 05/15/2024 3:30 PM EST Office Visit Radiation Oncology at [address] [phone] Patsy Shelton MD [facility] [place] [address] documented as of this encounter Visit Diagnoses Not on filedocumented in this encounter Care Teams Laborer Shaft Sinking Relationship Specialty Start Date End Date Maya Burden MD [address] [place], [place] [id number] PCP - General 05/27/10 01/23/19 documented as of this encounter
--- OUTSIDE RECORDS SUMMARY | 2024-02-29 01:30 | XMS_ITS | Encounter Summary ---
Author Organization [facility] [address] [address] Care Team Providers Care Dye And Chemical Coordinator Name Role Phone Navid Avendaño MD Primary Care Provider [phone] Encounter Details Date Type Department Care Team (Late st Contact Info) Description 03/15/2019 Orders Only Hematology [place] [phone] Edgar Carreon MD [facility] [address] [place] [address] Social History Tobacco Use Types Packs/Day Years [...] 2:30 PM EDT Office Visit Hematology/Oncology at [address] [phone] Edgar Carreon MD [facility] [address] [place] [address] Kadie Gaming APRN [facility] [place] [address] 05/15/2024 3:30 PM EST Office Visit Radiation Oncology at [address] [phone] Patsy Shelton MD [facility] [place] [address] documented as of this encounter Visit Diagnoses Not on filedocumented in this encounter Care Teams Dye And Chemical Coordinator Relationship Specialty Start Date End Date Navid Avendaño MD [address] [place], [place] [phone] PCP - General Family Medicine 01/24/19 documented as of this encounter
--- OUTSIDE RECORDS SUMMARY | 2024-02-29 01:30 | XMS_ITS | Encounter Summary ---
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 S/p 1 cycle docetaxel/cyclophosphamide followed by discontinuation of chemo after infusion rxn to 2nd cycle. CURRENT TREATMENT DOSE: 32 Gy L supraclav, L axilla, L chest wall ANTICIPATED TOTAL DOSE: 50 Gy L supraclav, L axilla, L chest wall; 60 Gy mastectomy scar boost. Current # of xrt received: 16 L supraclav, L axilla, L chest wall Anticipated total # of xrt txs: 25 L supraclav, L axilla, L chest wall; 30 mastectomy scar boost Evaluation of port verification films: Approved. For details, see electronic film record in [employer]. Changes in Medical Condition: Increased soreness of irrad'd skin; soreness decreased by adria's cream & mepilex-lite. Feeling of food/water intermittently catching in throat; never experienced such in past; no soreness of throat. Headache yesterday after xrt, followed by L sided nose bleed, passing about 1 tsp blood. Pain?: See above. Your Medications Accurate as of April 25, 2019 10:17 AM. If you have any questions, ask [...] Cap Daily Refills: 0 Physical Exam: Pulse 88 Temp 36.8 ??C (98.2 ??F) (Oral) Resp 18 Wt 104.7 kg (230 lb 12.8 oz) SpO2 97% BMI 45.08 kg/m?? BP 146/73. A&Ox3, NAD. Mild to moderate erythema irrad'd area, skin intact. Exam of L nasal vestibule & L nasal cavity shows no lesion. Amb stable w/cane. Imagin03/21/19 Dx'ic Rad Interp CTsim: Left mastectomy changes. Mild enlargement of the spleen. Coronary artery atherosclerotic disease. ?? Performance Status: KPS 80%. Response to xrt: As expected. Irradiation Related Symptoms: Pharyngitis/esophagitis. Skin changes. Treatment for Symptom Control: Advised avoid hot liqs/solids & avoid solids more difficult to swallow, eat softer solids. Rx for silvadene. Mepilex-lite. Adria's cream. Pain Management: Tylenol arthritis tab prior to xrt. Recommendation on Continuing Course of xrt: Cont. documented in this encounter Plan of Treatment Upcoming Encounters Date Type Department Care Team (Late st Contact Info) Description 03/21/2024 2:30 PM EDT Office Visit Hematology/Oncology at [address] [phone] Edgar Carreon MD [facility] [address] H[place]AT[place] [address] Kadie Gaming APRN [facility] [place] [address] 05/15/2024 3:30 PM EST Office Visit Radiation Oncology at [address] [phone] Patsy Shelton MD [facility] [place] [address] documented as of this encounter Visit Diagnoses Diagnosis 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
--- OUTSIDE RECORDS SUMMARY | 2024-02-29 01:31 | XMS_ITS | Encounter Summary ---
[facility] Organization [facility] Address [facility] [place] [address] Care Team Providers Care Box Office Clerk Name Role Phone Maya Burden MD Primary Care Provider [phone] Reason for Visit * Reason Comments Establish Care Encounter Details Date Type Department Care Team (Late st Contact Info) Description 03/01/2015 9:00 AM EDT Office Visit [place] [id number] Anthony Belle MD [facility] [place] [address] Endometrial adenocarcinoma; Morbid obesity with BMI of 40.0-44.9, adult Discharge Disposition: Home Social History Tobacco Use [...] Sign Reading Time Taken Comments Blood Pressure 120/62 03/01/2015 9:15 AM EDT Pulse 85 03/01/2015 9:15 AM EDT Temperature 36.9 ??C (98.4 ??F) 03/01/2015 9:15 AM ED T Respiratory Rate 20 03/01/2015 9:15 AM EDT Oxygen Saturation 96% 03/01/2015 9:15 AM EDT Inhaled Oxygen Concentration - - Weight 102 kg (224 lb 13.9 oz) 03/01/2015 9:15 A M EDT Height 155.5 cm (5' 1.22) 03/01/2015 9:15 AM ED T Body Mass Index 42.18 03/01/2015 9:15 AM EDT documented in this encounter Progress Notes * Kelsey Hernandez A - 03/01/2015 9:19 AM EDT Division of Gynecologic Oncology Fatou Giles MD [facility] Ingrid Mcallister MD [facility] [place] [address] New Outpatient Visit: Reason for visit :Myesha Santizo is being seen in the clinic today at the request of Goldie Mortensen Md [address] [place] [address] for the evaluation of endometrial adenocarcinoma. I have reviewed the available records, interviewed and examined the patient. Patient Active Problem List Diagnosis Code ??? Endometrial adenocarcinoma 182.0 ??? Morbid obesity with BMI of 40.0-44.9, adult 278.01, V85.41 ??? Anxiety 300.00 ??? Hypothyroidism 244.9 ??? 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 Sleep apnea 780.57 ??? Diabetes mellitus type 2, uncomplicated 250.00 History of Present Illness: Myesha Santizo is a 69 y.o. female referred for evaluation of endometrial cancer. She is accompaniedby her daughter, Geovanna Byrne. Myesha was in her normal state of health until a couple months she started having vaginal spotting and pain in her right side of her abdomen. She had vaginal bleeding off and on during the last couple months, mostly spotting with pink-tinged. The pain built up over time and felt like it was her dive rticulosis. Her physician recommended an EMB and ultrasound. EMB 02/07/15 Endometrial adenocarcinoma, endometrioid type (FIGO grade 1) Pelvic U/S 01/30/15 from [facility] Endometrial stripe is thickened, no measurement given. Right ovary 4.7 x 2.9 x 3.6 cm Left ovary 2.0 x 0.[address] abd/pelvis 02/07/15 No pelvic mass is confirmed at CT. There is a peripelvic right renal cyst and diverticulosis is identified. There is no evidence of diveriticulitis. Myesha was then told she had endometrial cancer and likely she would need a hysterectomy. She is expecting to discuss surgery today. Functional status is moderate. She walks with a cane because her right knee has arthritis and cartilage is 'going in my knee'. Uses it in her home as well. She does not exercise regularly and does not walk very far at a time. Provides her own self-care. Diabetes: Her last Hgb A1c was appx 1 month ago and she believes it was 6.3. She uses metformin 500mg BID. Takes fasting blood sugars and reports 110's typically. LUAN: Uses CPAP every night Review of Systems: Review of Systems Constitutional: Positive for appetite change (not hungry) and fatigue (tired a lot for the last fewmonths). Negative for fever, activity change and unexpected weight change. HENT: Negative for mouth sores and nosebleeds. Respiratory: Negative for cough, shortness of breath and wheezing. Cardiovascular: Negative for chest pain, palpitations and leg swelling. Gastrointestinal: Positive for abdominal pain. Negative for nausea, vomiting, diarrhea, constipation, blood in stool and abdominal distention. Genitourinary: Positive for urgency, frequency (has to urinate frequently) and vaginal bleeding. Negative for dysuria, hematuria and vaginal discharge. Neurological: Negative for dizziness, weakness and light-headedness. Hematological: Negative for adenopathy. Does not bruise/bleed easily. Psychiatric/Behavioral: The patient is nervous/anxious (uses lorazepam). Medical History: Past Medical History Diagnosis Date ??? Hypothyroid ??? Hypertension ??? Squamous cell skin cancer ??? Avila esophagus ??? Hyperlipidemia ??? Anxiety ??? Hypothyroid ??? Hx of adenomatous polyp of colon Surgical History: Past Surgical History Procedure Laterality Date ??? Breast biopsy ??? Endometrial biopsy ??? section Medications: Current Outpatient Prescriptions Medication Sig Dispense Refill ??? fluoruracil (CARAC) 0.5 % Cream Apply topically daily. ??? acetaminophen (TYLENOL) 500 mg Tablet As needed ??? aspirin 81 mg Tablet, Delayed Release (E.C.) Daily ??? Ibuprofen 200 mg Capsule As needed ??? lisinopril (PRINIVIL;ZESTRIL) 10 mg Tablet Daily ??? vitamin E 400 unit Capsule Daily ??? sertraline (ZOLOFT) 50 mg Tablet Daily ??? LORazepam (ATIVAN) 1 mg Tablet Once ??? metFORMIN (GLUCOPHAGE) 500 mg Tablet Twice a day ??? pravastatin (PRAVACHOL) 20 mg tablet ??? levothyroxine (SYNTHROID) 75 mcg tablet 75mcg, PO, Once daily ??? omeprazole (PRILOSEC) 20 mg capsule 20mg, PO, Once daily ??? sertraline (ZOLOFT) 50 mg tablet 50mg, PO, Once daily ??? multivitamin (DAILY MULTIPLE) tablet No current facility-administered medications for this visit. Allergies: Allergies Allergen Reactions ??? Atorvastatin Calcium CIS - myalgias Obstetric History: Gynecologic History/Health Maintenance: Menarche at age 14. Menopause at age 56. Used OCPs for 1 month. Denies HRT use. Denies STIs Has had regular Pap smear screening and they have wnl. Mammograms are up to date and are wnl per the patient. Last colonoscopy = September 2014. Family History: Family History Problem (# of Occurrences) Relation (Name,Age of Onset) Esophageal Cancer (1) Brother Hyperlipidemia (3) Mother, Sister, Brother Hypertension (3) Mother, Brother, Sister Stomach Cancer (1) Mother Type 2 Diabetes (2) Mother, Brother Paternal Uncle with pancreatic cancer Paternal Aunt with breast cancer 60yo Social History: Myesha lives in a trailer and does not climb stairs. She cooks for herself, dresses and cares for herself. She lives with another person with whom she cares for, which provides her income. Her daughter lives very close by. She has never smoked, does use illicit drugs and very infrequently has a glass of wine. Physical Exam: Filed Vitals: 03/01/15 0915 BP: 120/62 Pulse: 85 Temp: 36.9 ??C (98.4 ??F) Resp: 20 Height: 155.5 cm (5' 1.22) Weight: 102 kg (224 lb 13.9 oz) SpO2: 96% Body mass index is 42.18 kg/(m^2). Body surface area is 2.10 meters squared. Physical Exam Gen: obese woman with cane, sitting in a chair and moves easily to exam table. HEENT: no supraclavicular or cervical lymphadenopathy CV: RRR, nml s1/s2 Pulm: CTAB, no wheezes Abd: obese, +BS, soft, non-distended, no masses palpated. Mild tenderness in right lower quadrant. No rebound or guarding. : external genitalia without lesions, speculum exam - vagina with physiologic discharge and without lesions. Cervix visualized and appears multiparous. No lesions present. No blood in vagina. Ext: bilateral 2+ lower extremity edema; mild skin changes seemingly consistent with venous stasis. KPS: 70 Pertinent Radiographic/Diagnostic Results: See HPI Diagnostic Tests/Procedures Ordered: CBC and BMP Impression/Plan: Myesha Santizo is a 69 y.o. with a biopsy revealing endometrial adenocarcinoma, FIGO grade 1. The pathology was not reviewed here at [facility]. Based on these findings, a decision was made to proceed with surgery for definitive treatment, specifically a robotic-assisted hysterectomy and bilateral salpingoophorectomy and lymph node dissection. I reviewed the natural course of endometrial cancer with thepatient and the role that surgery plays in determining the stage of the cancer and it's subsequent treatment after surgery if indicated by the stage. I reassured Myesha Santizo that in the majority ofendometrial cancer cases, they are diagnosed early and that the intent of therapy is curative. I reviewed the surgical approach, need for general anesthesia, and the expected postoperative recovery. The patient was informed that patient's undergoing this procedure typically are safe to go homethe day after surgery. Additionally, I discussed the risks of the procedure including infection, bleeding, chronic leg swelling (lymphedema), DVT/PE, , damage to pelvic or abdominal structures such as the bowel, bladder, ureters, blood vessels, nerves, and the possibility of needing to convertto an open surgery. All of Myesha Santizo questions were answered to her satisfaction and she verbalized understanding of the plan of care. Surgical consent was obtained and surgery will be scheduled in the near future. Myesha should discontinue use of the following medication prior to surgery: - Metformin 2 days prior - Lorazepam: taper off/stop using - Discontinue aspirin and ibuprofen 1 week prior to surgery Surgery Date and Approach: 03/28/15, Robotic assisted laparoscopic Orders/RX: CBC, BMP today; PAT today Patient will bring CPAP with her on day of surgery. Advance Directives: Lastly, I have reviewed her advance directives that are on file in eD and they are up to date. Thank you for referring this hubert patient to [facility] for her cancer care. I will keep you apprised of her progress. Patient was seen and evaluated with Dr. Belle, [facility], with whom the plan was formulated. KELSEY HERNANDEZ MD PGY3 03/01/2015 I saw and evaluated the patient with Dr. Hernandez, and I confirmed the history and physical findings as outlined, and I agree with the note as written. Today, I also had a discussion with the patientabout her obesity, whose BMI is: Body mass index is 42.18 kg/(m^2).. I discussed the risks associated with obesity, including the increased risk of endometrial, colon, ovarian, breast, renal and other cancers, and this includes an increased risk of recurrence of treated cancers as well. I reviewed the goals of weight management- as an effort to mitigate those risks. I also provided the patient with copies of information pamphlets, from the [employer] website (https://www.sgo.org/obesity/) includin. A Patient???s Guide to Losing Weight to Reduce Your Risk of Endometrial Cancer 2. Obesity and Endometrial Cancer: For family physicians and patients. I also briefly reviewed the option of bariatric surgery (gastric bypass), as a mechanism in patients who are severely overweight who have failed diet/exercise management strategies. documented in this encounter Plan of Treatment Upcoming Encounters Date Type Department Care Team (Late st Contact Info) Description 03/21/2024 2:30 PM EDT Office Visit Hematology/Oncology at [address] [phone] Edgar Carreon MD [facility] HEMATOLOGY [place] [address] Kadie Gaming APRN [facility] [address] 05/15/2024 3:30 PM EST Office Visit Radiation Oncology at [address] [address] Patsy Shelton MD [facility] RADIATION [place] [address] documented as of this encounter Procedures Procedure Name Priority Date/Time Associated Diagnosis Comments HEMOGRAM Routine 03/01/2015 11:43 AM EDT Endometrial adenocarcinoma DIFFERENTIAL, AUTOMATED Routine 03/01/2015 11:43 AM EDT Endometrial adenocarcinoma CREATININE Routine 03/01/2015 11:43 AM EDT Endometrial adenocarcinoma CBC (WITH DIFF) Routine 03/01/2015 11:43 AM EDT Endometrial adenocarcinoma BUN Routine 03/01/2015 11:43 AM EDT Endometrial adenocarcinoma ELECTROLYTES PANEL Routine 03/01/2015 11 :43 AM EDT Endometrial adenocarcinoma documented in this encounter Results * Differential, Automated (03/01/2015 11:43 AM EDT) Neutrophil % 73.5 % CERNER MILLENNIUM Neutrophil Absolute 5.91 1.50 - 6.30 x10(3)/mcL CERNER MILLENNIUM Lymph % 19.4 % CERNER MILLENNIUM Lymphocytes Abs 1.6 1.0 - 3.6 x10(3)/mcL CERNER MILLENNIUM Monocyte % 5.6 % CERNER MILLENNIUM Monocyte Abs 0.4 0.2 - 1.0 x10(3)/mcL CERNER MILLENNIUM Eos % 1.1 % CERNER MILLENNIUM Eosinophils Abs 0.1 0.0 - 0.5 x10(3)/mcL CERNER MILLENNIUM Basophil % 0.2 % CERNER MILLENNIUM Baso Absolute 0.0 0.0 - 0.2 x10(3)/mcL CERNER MILLENNIUM Immature Gran % 0.20 % CERN ER MILLENNIUM Comment: Immature granulocytes(IG's)percentage and absolute count will include metamyelocytes, myelocytes, and promyelocytes. Blood smears from CBCs yielding IG's will be scanned manually for concordance. If this scan disagrees with the automated IG or if promyelocytes are noted, a manual differential will be performed. Immature Gran Absolute 0.02 0.00 - 0.05 x10(3)/mcL CERNER MILLENNIUM Blood specimen (specimen) 03/01/2015 11:43 AM EDT 03/01/2015 12:15 PM EDT Narrative Resulting Agency Comment Spec In Lab Anthony Belle MD HEMATOLOGY ORDERABLE S CERNER MILLENNIUM * (ABNORMAL) Hemogram (03/01/2015 11:43 AM EDT) White Blood Cell 8.0 4.0 - 10.0 x10(3)/mc L CERNER MILLENNIUM Red Blood Cell 4.32 3.93 - 5.22 x10(6)/mc L CERNER MILLENNIUM Hemoglobin 12.2 11.2 - 15.7 gm/dL CERNER MILLENNIUM Hematocrit 37.8 34.0 - 45.0 % CERNER MILLENNIUM Mean Cell Volume 87.5 79.0 - 94.0 fL CERNER MILLENNIUM Mean Cell Hemoglobin 28.2 26.6 - 32.2 pg CERNER MILLENNIUM Mean Cell Hemoglobin Concentration 32.3 32.0 - 36.5 gm/dL CERNER MILLENNIUM Platelet 221 145 - 370 x10(3)/mc L CERNER MILLENNIUM RDW Standard Deviation 48.0(H) 35.0 - 46.0 fL CERNER MILLENNIUM RDW coefficient of variation 15.0(H) 10.9 - 14.4 % CERNER MILLENNIUM Mean Platelet Volume 11.2 9.0 - 12.0 fL CERNER MILLENNIUM Blood specimen (specimen) 03/01/2015 11:43 AM EDT 03/01/2015 12:15 PM EDT Narrative Resulting Agency Comment Spec In Lab Anthony Belle MD HEMATOLOGY ORDERABLE S Performing Organization Address [facility] de Phone Number LAURE FERRERAENNIUM * Electrolytes panel (03/01/2015 11:43 AM EDT) Sodium 140 135 - 145 mmol/L CERNER MILLENNIUM Potassium 4.0 3.5 - 5.0 mmol/L CERNER MILLENNIUM Comment: Please note: ??Patients with WBC >100,000 may have falsely elevated Potassium levels. ??For accurate Potassium quantification in these patients send serum separator tube (gold top) for subsequent determinations. ??Contact the Clinical Chemistry Laboratory if there are any questions. Chloride 100 98 - 107 mmol/L CERNER MILLENNIUM Carbon Dioxide 28 22 - 31 mmol/L CERNER MILLENNIUM Anion Gap 12 5 - 15 mmol/L CERNER MILLENNIUM Blood specimen (specimen) 03/01/2015 11:43 AM EDT 03/01/2015 12:15 PM EDT Narrative Resulting Agency Comment Spec In Lab Anthony Belle MD CHEMISTRY ORDERABLES Performing Organization Address [facility] de Phone Number LAURE DAVIDSONIUM * (ABNORMAL) Creatinine (03/01/2015 11:43 AM EDT) Creatinine 0.97 0.70 - 1.20 mg/dL CERNER MILLENNIUM Comment: Please note that the pediatric reference intervals supplied above were not validated at [facility]. Results from pediatric patients should be interpreted in conjunction to the patient's age, height and muscle mass. Est Glomerular Filtration Rate 57(L) >=60 CERNER MILLENNIUM Comment: This estimated GFR [...] the following links into your internet browser. [email or web address] Blood specimen (specimen) 03/01/2015 11:43 AM EDT 03/01/2015 12:15 PM EDT Narrative Resulting Agency Comment Spec In Lab Anthony Belle MD CHEMISTRY ORDERABLES Performing Organization Address [facility] Co de Phone Number LAURE THOMPSON * BUN (03/01/2015 11:43 AM EDT) Blood Urea Nitrogen 18 8 - 18 mg/dL ORIONJUAN THOMPSON Blood specimen (specimen) 03/01/2015 11:43 AM EDT 03/01/2015 12:15 PM EDT Narrative Resulting Agency Comment Spec In Lab Anthony Belle MD CHEMISTRY ORDERABLES Performing Organization Address [facility] Co de Phone Number LAURE THOMPSON documented in this encounter Visit Diagnoses Diagnosis Endometrial adenocarcinoma Malignant neoplasm of corpus uteri, except isthmus Morbid obesity with BMI of 40.0-44.9, adult Morbid obesity documented in this encounter Care Teams Box Office Clerk Relationship Specialty Start Date End Date Maya Burden MD [address] [place] [address] PCP - General 05/27/10 01/23/19 documented as of this encounter
== END 2024-02-29 01:46 ==
LOC: DI 01:26
PROVIDERS: PCP Family Medicine; Visit Provider Nurse Practitioner
DX: Z12.31 Encounter for screening mammogram for malignant neoplasm of breast (principal); R92.0 Mammographic microcalcification found on diagnostic imaging of breast
CPT/HCPCS: 76642; 77063; 77067

== ENCOUNTER 2024-02-29 02:52 | Outpatient (CLI) | payer OTHER, SELFPAY ==
--- OUTSIDE RECORDS SUMMARY | 2024-02-29 02:55 | XMS_ITS | Encounter Summary ---
Author Organization [facility] Address [address] [place] [address] Care Team Providers Care Home Worker Name Role Phone Unavailable Primary Care Provider Unavailabl e Encounter Details Date Type Department Care Team (Late st Contact Info) Description 11/09/2008 Orders Only [facility] - [facility] ([facility] [address] [place], [place] [id number] Maya Burden MD [facility] [place] [address] Social History Tobacco Use Types [...] - GENER AL ORDERABLES [facility] [address] [place] [id number] * CYTOPATHOLOGY (11/09/2008 0:00 EDT) Pathology Report: CYTOPATHOLOGY REPORT ? Reports generated via electronic interface contain original data; ? however they are lacking the format of the original report. ? Caution should be taken when reading/interpreti ng unformatted reports. ? Name: ? JENNIFER SANTIZO ? Accession #: ? [id number] ? : ? 1945 (Age: 63) ??F [...] ??11/14/2008 08:15 ? End of Report ? [facility] 11/09/2008 11/12/2008 Maya Burden MD PATHOLOGY ORDERABLES Performing Organization Address City/State/[facility] Co de Phone Number JUNIOR [facility] [address] [place] [address] documented in this encounter Visit Diagnoses Not on filedocumented in this encounter
--- OUTSIDE RECORDS SUMMARY | 2024-02-29 02:55 | XMS_ITS | Encounter Summary ---
Author Organization [facility] Address [address] [place] [address] Care Team Providers Care Regulatory Analyst Name Role Phone Navid Avendaño MD Primary Care Provider [phone] Reason for Visit * Reason Comments Joint Pain * Consult (Routine) - Closed Specialty Diagnoses / Procedures Referred By [facility] Referred To Contact Rheumatology Diagnoses Joint pain Navid Avendaño MD [address] [place] [place] [address] [facility] [address] [place] [id number] Referral ID Status Reason Start Date Expiration Date Visits Re quested Visits Authorized [id number] Closed 1 1 Encounter Details Date Type Department Care Team (Late st Contact Info) Description 05/09/2020 14:15 EST Office Visit [facility] Rheumatology [address] [place] [address] Debi Coleman MD [address] [place] [address] [place] [address] LATRELL positive (Primary Dx); Ulnar [...] For patients, please refer to guidance in SproutBox on how to locate information. Generally this [...] laterality documented in this encounter Care Teams Regulatory Analyst Relationship Specialty Start Date End Date Navid Avendaño MD [address] [place] [address] PCP - General 11/09/19 documented as of this encounter
--- OUTSIDE RECORDS SUMMARY | 2024-02-29 02:55 | XMS_ITS | Encounter Summary ---
Author Organization [facility] Address [address] [place] [address] Care Team Providers Care Assistant Manager Of Operations Name Role Phone Maya Burden MD Primary Care Provider Encounter Details Date Type Department Care Team (Late st Contact Info) Description 02/29/2012 Results Only [facility] [phone] Lucero Albarado, [address] [place], [place] [phone] Social History Tobacco Use Types Packs/Day Years [...] ? JENNIFER SANTIZO ? Accession #: ? [id number] ? : ? 1945 (Age: 66) ??F [...] PATHOLOGY ORDER LUIS ENRIQUE J[facility] [address] [place] [address] documented in this encounter Visit Diagnoses Not on filedocumented in this encounter Care Teams Assistant Manager Of Operations Relationship Specialty Start Date End Date Maya Burden MD [address] [place] [address] [place] [address] PCP - General 10/02/11 11/08/19 documented as of this encounter
--- OUTSIDE RECORDS SUMMARY | 2024-02-29 02:55 | XMS_ITS | Encounter Summary ---
Author Organization [facility] Address [address] [place] [address] Care Team Providers Care Associate Professor Of Education Name Role Phone Maya Burden MD Primary Care Provider [phone] Encounter Details Date Type Department Care Team (Latest Contact Info) Description 12/07/2018 19:46 EDT - 12/07/2018 23:59 EDT Hospital Encounter [address] [address] Unknown, Provider, Discharge Disposition: Home or Self Care Social History Tobacco Use Types Packs/Day Years Used Date Smoking Tobacco: Never Assessed Sex and Gender Information Value Date Recorded Sex Assigned at Not on file Gender Identity Female 03/04/2020 7:29 EDT Sexual Orientation Not on file documented as of this encounter Discharge Disposition Disposition Code Departure Means Destination Home or Self Detention documented in this encounter Plan of Treatment Not on file documented as of this encounter Visit Diagnoses Not on filedocumented in this encounter Care Teams Associate Professor Of Education Relationship Specialty Start Date End Date Maya Burden MD [address] [place] [address] [place] [address] PCP - General 10/02/11 11/08/19 documented as of this encounter
--- OUTSIDE RECORDS SUMMARY | 2024-02-29 02:55 | XMS_ITS | Encounter Summary ---
Author Organization [facility] Address [address] [place] [address] Care Team Providers Care Senior Litigation Paralegal Name Role Phone Navid Avendaño MD Primary Care Provider [phone] Encounter Details Date Type Department Care Team (Late st Contact Info) Description 06/14/2020 Orders Only [facility] [address] [place] [address] Lucy Shin RN Ulnar nerve compression, unspecified [...] Primary documented in this encounter Care Teams Senior Litigation Paralegal Relationship Specialty Start Date End Date Navid Avendaño MD [address] [place], [place] [id number] PCP - General 11/09/19 documented as of this encounter
--- OUTSIDE RECORDS SUMMARY | 2024-02-29 02:55 | XMS_ITS | Encounter Summary ---
Author Organization [facility] Address [address] [place] [address] Care Team Providers Care Fire Control Technician G Name Role Phone Maya Gambino MD Primary Care Provider Encounter Details Date Type Department Care Team (Late st Contact Info) Description 01/15/2015 Results Only [facility]- [facility] [phone] Maya Gambino MD [address] [place] [address] [place] [address] Social History Tobacco Use Types [...] ? JENNIFER SANTIZO ? Accession #: ? [id number] : ? 1945 (Age: 69) ??F ?Collect [...] electronically signed by: ? YONNY JOHNSON MD [facility] ? Report Date: ??01/25/2015 17:41 End of Report [facility] 01/15/2015 01/16/2015 Maya Gambino MD PATHOLOGY ORDERABLES Performing Organization Address City/State/[facility] Co de Phone Number [facility] [address] [place] [address] documented in this encounter Visit Diagnoses Not on filedocumented in this encounter Care Teams Fire Control Technician G Relationship Specialty Start Date End Date Maya Gambino MD [address] [place] [address] [place] [address] PCP - General 10/02/11 11/08/19 documented as of this encounter
--- OUTSIDE RECORDS SUMMARY | 2024-02-29 02:55 | XMS_ITS | Encounter Summary ---
Author Organization [facility] Address [address] [place] [address] Care Team Providers Care Progressive Care Nurse Name Role Phone Maya Gambino MD Primary Care Provider [phone] Encounter Details Date Type Department Care Team (Late st Contact Info) Description 02/07/2015 Results Only [facility] [phone] Joey Moore MD [address] [place] [address] Social History Tobacco Use Types Packs/Day Years [...] ? JENNIFER SANTIZO ? Accession #: ? [id number] ? : ? 1945 (Age: 69) ??F [...] [place] 02/08/2015 12:29 PM End of Report [facility] 02/07/2015 9:20 EDT 02/07/2015 9:20 EDT Joey Moore MD PATHOLOGY ORDERABLES Performing Organization Address City/State/[facility] Co de Phone Number [facility] [address] [place] [address] documented in this encounter Visit Diagnoses Not on filedocumented in this encounter Care Teams Progressive Care Nurse Relationship Specialty Start Date End Date Maya Gambino MD [address] [place] [address] [place] [address] PCP - General 10/02/11 11/08/19 documented as of this encounter
--- OUTSIDE RECORDS SUMMARY | 2024-02-29 02:55 | XMS_ITS | Encounter Summary ---
Author Organization [facility] Address [address] [place] [address] Care Team Providers Care Clinical Ob Name Role Phone Maya Burden MD Primary Care Provider Encounter Details Date Type Department Care Team (Latest Contact Info) Description 07/04/2018 12:10 EST - 07/04/2018 23:59 EST Hospital Encounter [address] [address] Unknown, Provider, Discharge Disposition: Home or Self Care Social History Tobacco Use Types Packs/Day Years Used Date Smoking Tobacco: Never Assessed Sex and Gender Information Value Date Recorded Sex Assigned at Not on file Gender Identity Female 03/04/2020 7:29 EDT Sexual Orientation Not on file documented as of this encounter Discharge Disposition Disposition Code Departure Means Destination Home or Self Shelter documented in this encounter Plan of Treatment Not on file documented as of this encounter Visit Diagnoses Not on filedocumented in this encounter Care Teams Clinical Ob Relationship Specialty Start Date End Date Maya Burden MD [address] [place] [address] [place] [address] PCP - General 10/02/11 11/08/19 documented as of this encounter
--- OUTSIDE RECORDS SUMMARY | 2024-02-29 02:55 | XMS_ITS | Encounter Summary ---
Author Organization [facility] Address [facility] [address] [place] [address] Care Team Providers Care Machine Operator Slitter Technician Name Role Phone Navid Avendaño MD Primary Care Provider [phone] Reason for Referral * Diagnostic Test (Routine) - New Request Specialty Diagnoses / Procedures Referred By Moses damian Referred To Contact Radiology Diagnoses S/P radiotherapy Procedures CT Chest w Contrast Patsy Shelton MD [facility] [place] [address] Referral ID Status Reason Start Date Expiration Date Visits Requested Visits Authorized [id number] New Request Specialty Service Requested 12/07/2023 06/07/2025 1 1 Reason for Visit * Reason Comments Follow-up Encounter Details Date Type Department Care Team (Late st Contact Info) Description 12/07/2023 12:00 PM EDT TH Visit (TeleHealth) Radiation Oncology at [address] [address] Patsy Shelton MD [facility] [place] [address] S/P radiotherapy Social History Tobacco Use Types [...] scan result. Myesha & daughter Kadie (tel [phone]) on conference call. Informed that bone scan neg for met dz & that I think L chest wall discomfort due to scar tissue from surgery & xrt. Daughter Kadie asked about obtaining CT chest for further eval & I think this is reasonable. S: She has postponed further PT w/Jaylon Carrillo, PT @ [facility] until after further evaluation of L chest wall discomfort. The PT by Mr. Carrillo is for overall body/muscle aches. Decision Making/Plan: CT chest @ [facility]. Phone followup after CT to discuss result. [...] 2:30 PM EDT Office Visit Hematology/Oncology at [address] [phone] Edgar Carreon MD [facility] DR HEMATOLOGY [place] [address] Kadie Gaming APRN [facility] [address] 05/15/2024 3:30 PM EST Office Visit Radiation Oncology at [address] [phone] Patsy Shelton MD [facility] [place] [address] Scheduled Orders Name Type Priority Associated Diagnoses Orde r Schedule CT Chest w Contrast Imaging Routine S/P radiotherapy Expected: 12/08/2023, Expires: 06/08/2024 Creatinine Lab Routine S/P radiotherapy Expected: 12/08/2023, Expires: 06/08/2024 documented as of this encounter Visit Diagnoses Diagnosis S/P radiotherapy Convalescence following radiotherapy documented in this encounter Care Teams Machine Operator Slitter Technician Relationship Specialty Start Date End Date Navid Avendaño MD [facility] [address] [address] PCP - General Family Medicine 01/24/19 documented as of this encounter
--- OUTSIDE RECORDS SUMMARY | 2024-02-29 02:55 | XMS_ITS ---
Author Organization [facility] [place] [address] Care Team Providers Care Slope Hoist Operator Name Role Phone Navid Avendaño MD Primary Care Provider [phone] Active Problems Problem Noted Date Diagnosed Date [...] treatments are documented for this patient in [facility]. Treatments may have been administered in another system.
--- OUTSIDE RECORDS SUMMARY | 2024-02-29 02:55 | XMS_ITS | Encounter Summary ---
Author Organization [facility] [place] [address] Care Team Providers Care Mobile Developer Name Role Phone Navid Avendaño MD Primary Care Provider [phone] Encounter Details Date Type Department Care Team (Late Contact Info) Description 09/27/2023 Telephone Radiation Oncology at [address] [phone] Celeste Flynn RN Social History [...] 2:30 PM EDT Office Visit Hematology/Oncology at [address] [phone] Edgar Carreon MD [facility] [place] [address] Kadie Gaming APRN [facility] [place] [address] 05/15/2024 3:30 PM EST Office Visit Radiation Oncology at [address] [phone] Patsy Shelton MD [facility] [place] [address] documented as of this encounter Visit Diagnoses Not on filedocumented in this encounter Care Teams Mobile Developer Relationship Specialty Start Date End Date Navid Avendaño MD [address] [place] [address] PCP - General Family Medicine 01/24/19 documented as of this encounter
--- OUTSIDE RECORDS SUMMARY | 2024-02-29 02:55 | XMS_ITS | Encounter Summary ---
Author Organization [facility] Address [address] [place] [address] Care Team Providers Care Security Operations Engineer Name Role Phone Maya Burden MD Primary Care Provider [phone] Encounter Details Date Type Department Care Team (Latest Contact Info) Description 10/01/2014 12:21 EDT - 10/01/2014 23:59 EDT Hospital Encounter [facility] - [address] [address] Unknown, Provider, Discharge Disposition: Home or Self Care Social History Tobacco Use Types Packs/Day Years Used Date Smoking Tobacco: Never Assessed Sex and Gender Information Value Date Recorded Sex Assigned at Not on file Gender Identity Female 03/04/2020 7:29 EDT Sexual Orientation Not on file documented as of this encounter Discharge Disposition Disposition Code Departure Means Destination Home or Self Retirement documented in this encounter Plan of Treatment Not on file documented as of this encounter Visit Diagnoses Not on filedocumented in this encounter Care Teams Security Operations Engineer Relationship Specialty Start Date End Date Maya Burden MD [address] [place] [address] [place] [address] PCP - General 10/02/11 11/08/19 documented as of this encounter
--- OUTSIDE RECORDS SUMMARY | 2024-02-29 02:55 | XMS_ITS | Encounter Summary ---
Author Organization [facility] Address [address] [place] [address] Care Team Providers Care Painter Spring Name Role Phone Unavailable Primary Care Provider Unavailabl e Encounter Details Date Type Department Care Team (Late st Contact Info) Description 12/07/2006 Results Only [facility] - Maple conversion [address] [place] [address] Candice Xiong MD [address] [place] [address] [place] [address] Social History Tobacco Use Types Packs/Day Years [...] ? JENNIFER SANTIZO ? Accession #: ? [id number] ? : ? 1945 (Age: 61) ??F [...] mucus entirely submitted in one cassette. (Kaylene Archuleta/[facility] End of Report J[facility]IOR [facility]EL 12/07/2006 12/08/2006 15: 28 EDT Candice Xiong MD PATHOLOGY ORDERABLES [facility] [address] [place] [address] documented in this encounter Visit Diagnoses Not on filedocumented in this encounter
--- OUTSIDE RECORDS SUMMARY | 2024-02-29 02:55 | XMS_ITS | Encounter Summary ---
Author Organization [facility] Address [address] [place] [address] Care Team Providers Care Portfolio Strategist Name Role Phone Maya Burden MD Primary Care Provider Encounter Details Date Type Department Care Team (Late st Contact Info) Description 12/07/2018 Results Only [facility] [phone] Sonya Short MD [facility] [address] [place], [place] [id number] Social History Tobacco Use Types Packs/Day Years [...] ? JENNIFER SANTIZO ? Accession #: ? [id number] ? : ? 1945 (Age: 73) ??F [...] Tumor Location: Lower inner quadrant; 7 o'clock [place] Combined Histologic Scores: ?Tubular differentiation: Score 2 [...] definite Lymph nodes: ?2/6 (positive/total number examined) [place]idan nodes: ?? 5 (examined and included in total) ? 1 node with macrometastases ? 0 nodes with micrometastases ? 1 node with isolated tumor cells only ER/AZ: ?ER positive (Greater than 90%); [place] positive (Greater than 90%) ([id number]) Her2/mauricio: ? Negative 1+ by immunohistochemistry ([id number]) FINAL PATHOLOGIC DIAGNOSIS: A. ??BREAST, LEFT, TOTAL [...] tissue with no specific pathologic features. Comment: Clinical Trial Coordinator slides of this case were reviewed at intradepartmental consultation conference. ?? Document reviewed and electronically signed by: CHANA RICHARDSON MD Report ??Date: 12/13/2018 16:28 By the signature above, the attending physician certifies that he/she has personally conducted a gross and/or microscopic examination of the described specimens and rendered or confirmed the above diagnosis. Specimen(s) Received: A. ??Mastectomy, left; suture medial B. ??[place] lymph node #1 C. ??Lymph node D. ??[place] lymph node #2 E. ??[place] lymph node #3 F. ??Medial skin edge; [...] are identified on the epidermal surface. ? Clinical Trial Coordinator sections are submitted as follows: INK MERINO Black-deep Blue-superficial ? BLOCK MERINO A1- ??nipple, perpendicular sections A2- ??transverse section of nipple with lactiferous sinuses A3- ??deep margin nearest to tumor (no tumor included) A4- ??superficial margin close to tumor (no tumor included) A5- ??tumor with superficial margin A6- ??section of tumor and additional patel firm focus A7-A13- ??sections of tumor A14-A15- ??signs sales representative sections of upper inner quadrant A16-A17- ??signs sales representative sections of lower inner quadrant A18-A19- ??signs sales representative sections of lower outer quadrant A20-A21- ??signs sales representative sections of upper outer quadrant A22- ??signs sales representative sections of area of fibrosis [...] with short stitch superior long stitch medial. Clinical Trial Coordinator sections are submitted as F1-F2. Micaela Powell 12/09/2018 3:08 PM End of Report [facility] 12/07/2018 9:02 EDT 12/08/2018 9:02 EDT Sonya Short MD PATHOLOGY ORDERA [facility] Organization Address City/State/ZIP Co de Phone Number [facility] [address] [place] [address] documented in this encounter Visit Diagnoses Not on filedocumented in this encounter Care Teams Portfolio Strategist Relationship Specialty Start Date End Date Maya Burden MD [address] [place] [address] [place] [address] PCP - General 10/02/11 11/08/19 documented as of this encounter
--- OUTSIDE RECORDS SUMMARY | 2024-02-29 02:55 | XMS_ITS | Encounter Summary ---
Author Organization [facility] Address [address] [place] [address] Care Team Providers Care Configuration Release Manager Name Role Phone Unavailable Primary Care Provider Unavailabl e Encounter Details Date Type Department Care Team (Late st Contact Info) Description 08/11/2006 Results Only [facility] - Map conversion [address] [place] [address] Irving Wolfe MD [address] [place] [phone] Social History Tobacco Use Types Packs/Day Years [...] ? JENNIFER SANTIZO ? Accession #: ? [id number] ? : ? 1945 (Age: 61) ??F [...] represent inflammation adjacent to a diverticulum. ??(Dr. Alonso)/[facility] Document reviewed and electronically signed by: ANNE [...] submitted in toto in one cassette. ??(Nuria Walton)/[facility] End of Report [facility] MICHAEL 08/11/2006 08/11/2006 15: 12 EST Irving Wolfe MD PATHOLOGY ORDERABLES [facility] [address] [place] [address] documented in this encounter Visit Diagnoses Not on filedocumented in this encounter
--- OUTSIDE RECORDS SUMMARY | 2024-02-29 02:55 | XMS_ITS | Encounter Summary ---
Author Organization [facility] Address [address] [place] [address] Care Team Providers Care Equity Director Name Role Phone Unavailable Primary Care Provider Unavailabl e Encounter Details Date Type Department Care Team (Late st Contact Info) Description 09/23/2011 Results Only [facility] - [facility] ([facility] [address] [place], [place] [address] Sid Seals MD [address] [place] [address] Social History Tobacco Use Types [...] ? JENNIFER SANTIZO ? Accession #: ? [id number] ? : ? 1945 (Age: 66) ??F [...] MD PATHOLOGY ORDERABLES [facility] [address] [place] [address] documented in this encounter Visit Diagnoses Not on filedocumented in this encounter
--- OUTSIDE RECORDS SUMMARY | 2024-02-29 02:55 | XMS_ITS | Encounter Summary ---
Author Organization [facility] Address [address] [place] [address] Care Team Providers Care Varnish Thinner Name Role Phone Navid Avendaño MD Primary Care Provider [phone] Encounter Details Date Type Department Care Team (Late st Contact Info) Description 11/10/2019 Lab Requisition [facility] Pathology & Laboratory Medicine - [address] [address] Elio [place], [address] [place], [place] [address] Follicular cyst of the skin and subcutaneous [...] and granulation tissue formation. 11/13/2019 11:37 EDT [facility] at 1137 Attestation By the signature below, the attending physician certifies that they have 1) personally conducted a gross and/or microscopic examination of the described specimen(s), and/or personally interpreted the results of laboratory testing of the described specimen(s), and 2) personally rendered or confirmed the above diagnosis. 11/13/2019 11:37 [facility] at 1137 Microscopic Description There is a cyst that is lined by stratified squamous epithelium that matures through a granular layer. The cyst is filled with laminated orthokeratin. Portions of the cyst wall are disrupted. The surrounding dermis is marked by fibrosis, granulation tissue formation, and inflammation. There are foreign body giant cells associated with liberated keratin. 11/13/2019 11:37 [facility] Clinical History Chronic skin cyst, now infected 11/13/2019 11:37 [facility] Gross Description A. [...] deep margin. The margins are inked blue. Manager Managing sections are submitted as follows: Block plata: A1-A4- hr representative central sections including closest margins A5- tips, reverse en face Jignesh Jacky 11/10/2019 9:11 11/13/2019 11:37 T [facility] Scanned Images 11/13/2019 11:37 [facility] Tissue TISSUE SPECIMEN FROM SKIN / Unknown 11/09/2019 13:15 EDT 11/10/2019 7:44 EDT Elio [place] DO PATHOLOGY ORDER LUIS ENRIQUE [facility] [address] [place] [address] documented in this encounter Visit Diagnoses Diagnosis Follicular cyst of the skin and subcutaneous tissue, unspecified documented in this encounter Care Teams Varnish Thinner Relationship Specialty Start Date End Date Navid Avendaño MD [facility] [place] [address] PCP - General 11/09/19 documented as of this encounter
--- OUTSIDE RECORDS SUMMARY | 2024-02-29 02:55 | XMS_ITS | Encounter Summary ---
Author Organization [facility] Address [address] [place] [address] Care Team Providers Care Canal Boat Operator Name Role Phone Maya Burden MD Primary Care Provider [phone] Encounter Details Date Type Department Care Team (Late st Contact Info) Description 02/25/2012 Results Only [facility]- [facility] [phone] Lucero Albarado, [address] [place], [place] [address] Social History Tobacco Use Types Packs/Day Years [...] ? JENNIFER SANTIZO ? Accession #: ? [id number] ? : ? 1945 (Age: 66) ??F [...] Interpretation: ? Nasal tip, squamous cell cancer: [id number]. ?? Nasal tip, squamous cell cancer: ??12 [...] and FS1D, central sections, 12-6 o'clock (Nuria Chadwick)/[facility] End of Report JUNIOR MICHAEL 02/25/2012 02/25/2012 16: 29 EDT Lucero Albarado DO PATHOLOGY ORDER LUIS ENRIQUE Performing Organization Address City/State/[facility] Co de Phone Number [facility]IOR MICHA[facility] [address] [place] [address] documented in this encounter Visit Diagnoses Not on filedocumented in this encounter Care Teams Canal Boat Operator Relationship Specialty Start Date End Date Maya Burden MD [address] [place] [address] [place] [address] PCP - General 10/02/11 11/08/19 documented as of this encounter
--- OUTSIDE RECORDS SUMMARY | 2024-02-29 02:55 | XMS_ITS | Encounter Summary ---
Author Organization [facility] Address [address] [place] [address] Care Team Providers Care Wheat Buyer Name Role Phone Navid Avendaño MD Primary Care Provider [phone] Encounter Details Date Type Department Care Team (Late st Contact Info) Description 05/22/2020 Results Only [facility] - Main [address] [address] Unknown, Provider, Social History Tobacco Use Types [...] JENNIFER SANTIZO ?: [birth year] ?Age/Sex: 75/F ?Unit#: [id number] ? Loc: LAB.POP ? Status: REG REF ?? Reg Date: 05/23/20 ? Pt.Phone Number: ? ----- ------- Specimen: [id number] ? STATUS: SOUT ?Spec Date:05/22/20 ? Physician [...] specimen (RECTAL POLYPS X 3) ? CPT: 99544 ?? Units: ??7 ?FINAL DIAGNOSIS ? A. [...] of hyperplastic polyp(s). ----- ------- ?COMMENT ? [id number] ----- ------- Patient: JENNIFER SANTIZO ?#[id number] ? (Continued) ----- ------- Specimen: [id number] ? Received: 05/23/20 ?(Continued) ? GROSS DESCRIPTION [...] confirmed the above diagnosis. Test Performed by [facility], [address] [place] [address] Forms: Leilani Gaytan MD PHD ----- ------- Provider Unknown MD PATHOLOGY ORDERABLES Performing Organization Address City/State/[facility] Co de Phone Number [facility] [address] [place] [address] documented in this encounter Visit Diagnoses Not on filedocumented in this encounter Care Teams Wheat Buyer Relationship Specialty Start Date End Date Navid Avendaño MD [address] [place], [place] [id number] PCP - General 11/09/19 documented as of this encounter
--- OUTSIDE RECORDS SUMMARY | 2024-02-29 02:55 | XMS_ITS | Encounter Summary ---
Author Organization [facility] Address [facility] [place] [place] [address] Care Team Providers Care Windows Server Engineer Name Role Phone Navid Avendaño MD Primary Care Provider [phone] Encounter Details Date Type Department Care Team [...] 2:30 PM EDT Office Visit Hematology/Oncology at [address] [phone] Edgar Carreon MD [facility] [place] [address] Kadie Gaming APRN [facility] [place] [address] 05/15/2024 3:30 PM EST Office Visit Radiation Oncology at [address] [phone] Patsy Shelton MD [facility] [place] [address] documented as of this encounter Visit Diagnoses Not on filedocumented in this encounter Care Teams Windows Server Engineer Relationship Specialty Start Date End Date Navid Avenadño MD [address] [place] [address] PCP - General Family Medicine 01/24/19 documented as of this encounter
--- OUTSIDE RECORDS SUMMARY | 2024-02-29 02:55 | XMS_ITS | Encounter Summary ---
Author Organization [facility] Address [address] [place] [address] Care Team Providers Care Test Worker Name Role Phone Maya Burden MD Primary Care Provider [phone] Encounter Details Date Type Department Care Team (Latest Contact Info) Description 01/26/2019 13:54 EDT - 01/26/2019 13:56 EDT Hospital Encounter [facility] - [address] [address] Edgar Carreon MD [address] [place] [address] [place] [address] Discharge Disposition: Home or Self Care Social [...] on filedocumented in this encounter Care Teams Test Worker Relationship Specialty Start Date End Date Maya Burden MD [address] [place] [address] [place] [address] PCP - General 10/02/11 11/08/19 documented as of this encounter
--- OUTSIDE RECORDS SUMMARY | 2024-02-29 02:55 | XMS_ITS | Encounter Summary ---
Author Organization [facility] Address [address] [place] [address] Care Team Providers Care Home Security Alarm Installer Name Role Phone Maya Burden MD Primary Care Provider [phone] Encounter Details Date Type Department Care Team (Late st Contact Info) Description 10/14/2015 Results Only [facility]- [facility] [phone] Joey Moore MD [address] [place] [address] Social History Tobacco Use Types Packs/Day Years [...] ? JENNIFER SANTIZO ? Accession #: ? [id number] ? : ? 1945 (Age: 70) ??F [...] confirmed the above diagnosis. End of Report [facility] 10/14/2015 10/15/2015 Joey Moore MD PATHOLOGY ORDERABLES [facility] [address] [place] [address] documented in this encounter Visit Diagnoses Not on filedocumented in this encounter Care Teams Home Security Alarm Installer Relationship Specialty Start Date End Date Maya Burden MD [address] [place] [address] [place] [address] PCP - General 10/02/11 11/08/19 documented as of this encounter
--- OUTSIDE RECORDS SUMMARY | 2024-02-29 02:55 | XMS_ITS | Encounter Summary ---
Author Organization [facility] Address [address] [place] [address] Care Team Providers Care People Manager Name Role Phone Maya Gambino MD Primary Care Provider [phone] Encounter Details Date Type Department Care Team (Late st Contact Info) Description 10/01/2014 Results Only [facility]- [facility] [phone] Sonya Short MD [facility] [address] [place], [place] [id number] Social History Tobacco Use Types Packs/Day Years [...] ? JENNIFER SANTIZO ? Accession #: ? [id number] ? : ? 1945 (Age: 69) ??F [...] Nguyễn 10/02/2014 08:54 AM End of Report [facility] 10/01/2014 18:1 5 EDT 10/01/2014 18:15 EDT Sonya Short MD PATHOLOGY ORDERA BLES [facility] [address] [place] [address] documented in this encounter Visit Diagnoses Not on filedocumented in this encounter Care Teams People Manager Relationship Specialty Start Date End Date Maya Gambino MD [address] [place] [address] [place] [address] PCP - General 10/02/11 11/08/19 documented as of this encounter
--- OUTSIDE RECORDS SUMMARY | 2024-02-29 02:55 | XMS_ITS | Encounter Summary ---
Author Organization [facility] Address [address] [place] [address] Care Team Providers Care Laborer Salvage Name Role Phone Navid Avendaño MD Primary Care Provider [phone] Encounter Details Date Type Department Care Team (Late st Contact Info) Description 02/28/2020 Lab Requisition [facility] Pathology & Laboratory Medicine - [address] [address] Outr Resulting Lab, Provider Social History Tobacco [...] Stranded) 75.3(H) <30.0 IU/mL 02/29/2020 12:01 EDT [facility] Comment: ? Negative: ??<30.0 IU/mL ? Borderline Positive: ??30.0 - 75.0 IU/mL ? Positive: ??>75.0 IU/mL Results were obtained with the [employer] QUANTA Lite dsDNA SC HOSSEIN assay on the jobandtalent DSX. Blood VENOUS BLOOD / Unknown 02/26/2020 12:05 EDT 02/28/2020 16:10 EDT Provider Outr Resulting Lab IMMUNOLOGY A ND SEROLOGY ORDERABLES [facility] [address] [place] [address] documented in this encounter Visit Diagnoses Not on filedocumented in this encounter Care Teams Laborer Salvage Relationship Specialty Start Date End Date Navid Avendaño MD [address] [place] [address] PCP - General 11/09/19 documented as of this encounter
--- OUTSIDE RECORDS SUMMARY | 2024-02-29 02:55 | XMS_ITS | Continuity of Care Document ---
Author Name [facility] Organization [facility] Care Team Providers Care Publications Sales Representative Name Role Phone [facility] Unavailable Unavailable Social History Combined list of available smoking, tobacco, and other social history from Department of Defense and Veterans Affairs facilities. Social History Type Response Date Comment Sourc e This section is an empty social history section. [facility]
--- OUTSIDE RECORDS SUMMARY | 2024-02-29 02:55 | XMS_ITS | Encounter Summary ---
Author Organization [facility] Address [address] [place] [address] Care Team Providers Care Appeals Coordinator Name Role Phone Navid Avendaño MD Primary Care Provider [phone] Encounter Details Date Type Department Care Team (Late st Contact Info) Description 08/20/2021 Lab Requisition [facility] Pathology & Laboratory Medicine - [facility] [address] [place] [address] Outr Resulting Lab, Provider Social History Tobacco [...] 10 - 291 ng/mL 08/20/2021 23:11 EST [facility] Blood VENOUS BLOOD / Unknown 08/20/2021 13:40 EST 08/20/2021 22:00 EST Provider Outr Resulting Lab CHEMISTRY & BLOOD GAS ORDERABLES [facility] [address] [place] [address] documented in this encounter Visit Diagnoses Not on filedocumented in this encounter Care Teams Appeals Coordinator Relationship Specialty Start Date End Date Navid Avendaño MD [address] [place], [place] [address] [place] [address] PCP - General 11/09/19 documented as of this encounter
--- OUTSIDE RECORDS SUMMARY | 2024-02-29 02:55 | XMS_ITS | Encounter Summary ---
Author Organization [facility] Address [address] [place] [address] Care Team Providers Care Train Gateman Name Role Phone Maya Burden MD Primary Care Provider [phone] Encounter Details Date Type Department Care Team (Late st Contact Info) Description 01/26/2019 Results Only [facility]- [facility] [phone] Edgar Lovett MD [address] [place] [address] [place] [address] Social History Tobacco Use Types Packs/Day Years [...] ? JENNIFER SANTIZO ? Accession #: ? [id number] ? : ? 1945 (Age: 73) ??F [...] Interpretation Description Oncotype DX assay performed by [employer] The OncotypeDX breast cancer assay was requested by the patient and Dr. Edgar Lovett. ??The assay is intended for newly diagnosed patients with Stage I or II, node negative, estrogen receptor positive breast cancer. ??The assay uses RT-PCR to determine the expression of 21 genes in formalin-fixed paraffin-embedded tumor tissue. A paraffin-embedded tissue block ([id number], A7) was sent to [facility] for testing. ??The reported recurrence score was [...] confirmed the above diagnosis. End of Report [facility] 01/26/2019 01/26/2019 15: 17 EDT Edgar Lovett MD PATHOLOGY ORDERABLES [facility] [address] [place] [address] documented in this encounter Visit Diagnoses Not on filedocumented in this encounter Care Teams Train Gateman Relationship Specialty Start Date End Date Maya Burden MD [address] [place] [address] [place] [address] PCP - General 10/02/11 11/08/19 documented as of this encounter
--- OUTSIDE RECORDS SUMMARY | 2024-02-29 02:55 | XMS_ITS | Encounter Summary ---
Author Organization [facility] Address [address] [place] [address] Care Team Providers Care Helmet Hat Puncher Name Role Phone Maya Burden MD Primary Care Provider [phone] Encounter Details Date Type Department Care Team (Late st Contact Info) Description 02/08/2012 Results Only [facility] [phone] Lucero Albarado, [address] [place], [place] [id number] Social History Tobacco Use Types Packs/Day Years [...] ? JENNIFER SANTIZO ? Accession #: ? [id number] ? : ? 1945 (Age: 66) ??F [...] trisected and (B2) smaller shave bisected. ??(Nuria Chadwick)/[facility] End of Report JUNIOR MICHAEL 02/08/2012 02/09/2012 16: 07 EDT Lucero Albarado DO PATHOLOGY ORDER LUIS ENRIQUE JUNIOR MICHAEL [address] [place] [address] documented in this encounter Visit Diagnoses Not on filedocumented in this encounter Care Teams Helmet Hat Puncher Relationship Specialty Start Date End Date Maya Burden MD [address] [place] [address] [place] [address] PCP - General 10/02/11 11/08/19 documented as of this encounter
--- OUTSIDE RECORDS SUMMARY | 2024-02-29 02:55 | XMS_ITS | Clinical Summary ---
Author Organization [facility] Address [address] [place] [address] Care Team Providers Care Electronics Engineering Technologist Name Role Phone Navid Avendaño MD Primary Care Provider [phone] Social History Tobacco Use Types Packs/Day Years [...] COVID-19 Vaccine ( season) 2023 Care Teams Electronics Engineering Technologist Relationship Specialty Start Date End Date Navid Avendaño MD [address] [place] [address] PCP - General 11/09/19
--- OUTSIDE RECORDS SUMMARY | 2024-02-29 02:55 | XMS_ITS | Clinical Summary ---
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 12/07/2023 12:00 PM EDT TH Visit (TeleHealth) Radiation Oncology at [address] [phone] Patsy Shelton MD S/P radiotherapy 11/30/2023 Ancillary Procedure Radiology Library at [facility] [place] [address] Navid Avendaño MD from Last 3 Months [...] PM EDT Office Visit Hematology/Oncology at [address] [phone] Edgar Carreon MD [facility] HEMATOLOGY [place] [address] Kadie Gaming APRN [facility] [place] [address] 05/15/2024 3:30 PM EST Office Visit Radiation Oncology at [address] [phone] Patsy Shelton MD [facility] [place] [address] Health Maintenance Due Date Last Done Comments [...] Navid Avendaño MD IMG FILM LIBRARY ORDERABLES [place], [place] * (ABNORMAL) Basic Metabolic Panel (non-fasting) (03/29/2015 4:59 AM EDT) [facility] Glucose 165 65 - 199 mg/dL [facility] Comment:Diabetes: >=200 mg/d L plus symptoms Blood Urea Nitrogen 13 8 - 18 mg/dL [facility]NI[facility] Creatinine 1.03 0.70 - 1.20 mg/dL [facility] Comment: Please note that the pediatric reference intervals supplied above were not validated at [facility]. Results from pediatric patients should be interpreted [...] MILLENNIUM Est Glomerular Filtration Rate 53(L) >=60 [facility] Comment: This estimated GFR (eGFR) value [...] the following links into your internet browser. [email or web address] Blood specimen (specimen) 03/29/2015 4:59 AM EDT 03/29/2015 5:46 AM EDT Narrative Resulting Agency Comment Spec In Lab Anthony Belle MD CHEMISTRY ORDERABLES [facility] from Last 3 Months or Most Recently Relevant to Health Maintenance Advance Directives Documents on File Type Date Recorded Patient Credit Coordinator Expl anation Advance Directives and Livin g [...] capacity to make decision: Yes Care Teams Store Administrator Relationship Specialty Start Date End Date Navid Avendaño MD [address] [place], [place] [phone] PCP - General Family Medicine 01/24/19
--- OUTSIDE RECORDS SUMMARY | 2024-02-29 02:55 | XMS_ITS | Encounter Summary ---
Author Organization [facility] Address [address] [place] [address] Care Team Providers Care Business Continuity Analyst Name Role Phone Maya Burden MD Primary Care Provider [phone] Encounter Details Date Type Department Care Team (Latest Contact Info) Description 11/11/2018 11:18 EDT - 11/11/2018 23:59 EDT Hospital Encounter [address] [address] Unknown, Provider, Discharge Disposition: Home or Self [...] filedocumented in this encounter Care Teams Business Continuity Analyst Relationship Specialty Start Date End Date Maya Burden MD [address] [place] [address] [place] [address] PCP - General 10/02/11 11/08/19 documented as of this encounter
--- OUTSIDE RECORDS SUMMARY | 2024-02-29 02:55 | XMS_ITS | Encounter Summary ---
Author Organization [facility] Address [address] [place] [address] Care Team Providers Care Cosmetics Supervisor Name Role Phone Navid Avendaño MD Primary Care Provider [phone] Encounter Details Date Type Department Care Team (Late st Contact Info) Description 04/04/2020 Lab Requisition [facility] Pathology & Laboratory Medicine - [facility] [address] [place] [address] Outr Resulting Lab, Provider Social History Tobacco [...] 11:13 EDT) Hold Hold 04/04/2020 21:45 EDT [facility] Blood VENOUS BLOOD / Unknown 04/04/2020 11:13 EDT 04/04/2020 20:44 EDT Provider Outr Resulting Lab LAB INFO SER VICE AND SUPPORT & PHONE RESULT Performing Organization Address [facility]/ZIP Co de Phone Number [facility] [address] [place] [address] * (ABNORMAL) SPEP, INCLUDES QUANTITATION OF MONOCLONAL SPIKE (04/04/2020 11:13 EDT) Total Protein 6.8 6.3 - 8.2 g/dL 04/05/2020 12:52 EDT [facility] Albumin % 57.9 55.8 - 66.1 % 04/05/2020 12:52 EDT [facility] Alpha-1 % 4.2 2.9 - 4.9 % 04/05/2020 12:52 EDT [facility] Alpha-2 % 11.1 7.1 - 11.8 % 04/05/2020 12:52 EDT [facility] Beta % 14.3(H) 8.4 - 13.1 % 04/05/2020 12:52 EDT [facility] Gamma % 12.5 11.1 - 18.8 % 04/05/2020 12:52 EDT [facility] SPEP Comment No apparent monoclonal protein seen on serum electrophoresis 04/05/2020 12:52 EDT [facility] Comment:See scanned/suppleme ntary report. Blood VENOUS BLOOD / Unknown 04/04/2020 11:13 EDT 04/04/2020 20:44 EDT Provider Outr Resulting Lab CHEMISTRY & BLOOD GAS ORDERABLES [facility] [address] [place] [address] * HAPTOGLOBIN (04/04/2020 11:13 EDT) Haptoglobin 185 32 - 197 mg/dL 04/05/2020 9:18 EDT [facility] Blood VENOUS BLOOD / Unknown 04/04/2020 11:13 EDT 04/04/2020 20:44 EDT Provider Outr Resulting Lab CHEMISTRY & BLOOD GAS ORDERABLES [facility] [address] [place] [address] documented in this encounter Visit Diagnoses Not on filedocumented in this encounter Care Teams Cosmetics Supervisor Relationship Specialty Start Date End Date Navid Avendaño MD [address] [place] [address] PCP - General 11/09/19 documented as of this encounter
--- OUTSIDE RECORDS SUMMARY | 2024-02-29 02:55 | XMS_ITS | Encounter Summary ---
Author Organization [facility] Address [address] [place] [address] Care Team Providers Care Glass Furnace Operator Name Role Phone Navid Avendaño MD Primary Care Provider [phone] Encounter Details Date Type Department Care Team (Late st Contact Info) Description 02/26/2020 Lab Requisition [facility] Pathology & Laboratory Medicine - [address] [address] Outr Resulting Lab, Provider Social History Tobacco [...] Factor <8.6 <12.0 IU/mL 02/26/2020 21:25 EDT [facility] Blood VENOUS BLOOD / Unknown 02/26/2020 12:05 EDT 02/26/2020 21:12 EDT Provider Outr Resulting Lab CHEMISTRY & BLOOD GAS ORDERABLES Performing Organization Address [facility] de Phone Number [facility] [address] [place] [address] * (ABNORMAL) ANTI NUCLEAR AB (LATRELL), IFA (02/26/2020 12:05 EDT) LATRELL Interpretation Positive(A) Negative 02/27/2020 13:44 EDT [facility] Comment: For titers greater than [...] Pattern 1 1:160 Homogeneous 02/27/2020 13:44 EDT [facility] Blood VENOUS BLOOD / Unknown 02/26/2020 12:05 EDT 02/26/2020 21:12 EDT Narrative [facility] - 02/27/2020 13:44 EDT Results were obtained with the [employer]OVA NOVA Lite HEp-2 LATRELL Kit by indirect immunofluorescence. Provider Outr Resulting Lab IMMUNOLOGY A ND SEROLOGY ORDERABLES Performing Organization Address [facility] Co de Phone Number [facility] [address] [place] [address] documented in this encounter Visit Diagnoses Not on filedocumented in this encounter Care Teams Glass Furnace Operator Relationship Specialty Start Date End Date Navid Avendaño MD [address] [place] [address] PCP - General 11/09/19 documented as of this encounter
--- OUTSIDE RECORDS SUMMARY | 2024-02-29 02:55 | XMS_ITS | Encounter Summary ---
Author Organization [facility] Address [address] [place] [address] Care Team Providers Care Plant Operations Worker Name Role Phone Maya Burden MD Primary Care Provider [phone] Encounter Details Date Type Department Care Team (Latest Contact Info) Description 02/07/2015 9:36 EDT - 02/07/2015 23:59 EDT Hospital Encounter [facility] - [address] [address] Unknown, Provider, Discharge Disposition: Home or Self [...] on filedocumented in this encounter Care Teams Plant Operations Worker Relationship Specialty Start Date End Date Maya Burden MD [address] [place] [address] [place] [address] PCP - General 10/02/11 11/08/19 documented as of this encounter
--- OUTSIDE RECORDS SUMMARY | 2024-02-29 02:55 | XMS_ITS | Encounter Summary ---
Author Organization [facility] [place] [place] [address] Care Team Providers Care Cad Drafter Name Role Phone Navid Avendaño MD Primary Care Provider [phone] Encounter Details Date Type Department Care Team (Late Contact Info) Description 11/30/2023 Ancillary [place] [address] Navid Avendaño MD [address] [place] [address] Social History Tobacco Use Types [...] PM EDT Office Visit Hematology/Oncology at [address] [phone] Edgar Carreon MD [facility] [place] [address] Kadie Gaming APRN [facility] [place] [address] 05/15/2024 3:30 PM EST Office Visit Radiation Oncology at [address] [phone] Patsy Shelton MD [facility] [place] [address] documented as of this encounter Procedures Procedure Name Priority Date/Time Associated Diagnosis Comments FILM LIBRARY STORAGE ONLY NUCLEAR MEDICINE Routine 11/30/2023 12:00 AM EDT documented in this encounter Results * Film Library- Storage Only nuclear medicine (11/30/2023 12:00 AM EDT) Narrative [facility] - 12/01/2023 10:07 AM EDT This exam is auto-finalizing. It's purpose is for storage only. Navid Avendaño MD IMG FILM LIBRARY ORDERABLES Performing Organization Address City/State/[facility] Co de Phone Number [place], [place] documented in this encounter Visit Diagnoses Not on filedocumented in this encounter Care Teams Cad Drafter Relationship Specialty Start Date End Date Navid Avendaño MD [address] [place] [address] PCP - General Family Medicine 01/24/19 documented as of this encounter
--- OUTSIDE RECORDS SUMMARY | 2024-02-29 02:55 | XMS_ITS | Encounter Summary ---
Author Organization [facility] Address [address] [place] [address] Care Team Providers Care Pre Sales Technical Consultant Name Role Phone Navid Avendaño MD Primary Care Provider [phone] Encounter Details Date Type Department Care Team (Late st Contact Info) Description 12/21/2019 Lab Requisition [facility] Pathology & Laboratory Medicine - [facility] [address] [place] [address] Outr Resulting Lab, Provider Social History Tobacco [...] 13:00 EDT) Hold Hold 12/21/2019 22:01 EDT [facility] Blood VENOUS BLOOD / Unknown 12/21/2019 13:00 EDT 12/21/2019 21:00 EDT Provider Outr Resulting Lab LAB INFO SER VICE AND SUPPORT & PHONE RESULT Performing Organization Address City/State/[facility] Co de Phone Number [facility] [address] [place] [address] * (ABNORMAL) SPEP, INCLUDES QUANTITATION OF MONOCLONAL SPIKE (12/21/2019 13:00 EDT) Total Protein 6.9 6.3 - 8.2 g/dL 12/22/2019 14:18 EDT [facility] Albumin % 58.5 55.8 - 66.1 % 12/22/2019 14:18 EDT [facility] Alpha-1 % 4.4 2.9 - 4.9 % 12/22/2019 14:18 EDT [facility] Alpha-2 % 11.2 7.1 - 11.8 % 12/22/2019 14:18 EDT [facility] Beta % 13.9(H) 8.4 - 13.1 % 12/22/2019 14:18 EDT [facility] Gamma % 12.0 11.1 - 18.8 % 12/22/2019 14:18 EDT [facility] SPEP Comment No apparent monoclonal protein seen on serum electrophoresis 12/22/2019 14:18 T [facility] Comment:See scanned/suppleme ntary report. Blood VENOUS BLOOD / Unknown 12/21/2019 13:00 EDT 12/21/2019 20:58 EDT Provider Outr Resulting Lab CHEMISTRY & BLOOD GAS ORDERABLES Performing Organization Address [facility] Co de Phone Number [facility] [address] [place] [address] * (ABNORMAL) HAPTOGLOBIN (12/21/2019 13:00 EDT) Haptoglobin 207(H) 32 - 197 mg/dL 12/22/2019 11:15 EDT [facility] Blood VENOUS BLOOD / Unknown 12/21/2019 13:00 EDT 12/21/2019 20:58 EDT Provider Outr Resulting Lab CHEMISTRY & BLOOD GAS ORDERABLES Performing Organization Address [facility]/ZIP Co de Phone Number [facility] [address] [place] [address] documented in this encounter Visit Diagnoses Not on filedocumented in this encounter Care Teams Pre Sales Technical Consultant Relationship Specialty Start Date End Date Navid Avendaño MD [address] [place] [address] PCP - General 11/09/19 documented as of this encounter
--- OUTSIDE RECORDS SUMMARY | 2024-02-29 02:55 | XMS_ITS | Encounter Summary ---
Author Organization [facility] Address 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 Procedures NM Bone Scan Whole Body Patsy Shelton MD [facility] [place] [address] Referral ID Status Reason Start Date Expiration Date Visits Requested Visits Authorized [id number] New Request Specialty Service Requested 11/15/2023 05/17/2025 1 1 Reason for Visit * Reason Comments Follow-up Encounter Details Date Type Department Care Team (Late st Contact Info) Description 11/15/2023 2:30 PM EDT Office Visit Radiation Oncology at [address] [phone] Patsy Shelton MD [facility] [address] 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 [...] ROBOTIC performed by Anthony Belle MD at [facility] MAIN OR PRO LAPAROSCOPY W TOT HYSTERECTUTERUS <=250 GRAM W TUBE/OVARY N/A 03/28/2015 LAPAROSCOPY,TOTAL HYST, UTERUS<250GM, EVER TYBE &/OR OVARY, ROBOTIC ASSIST performed by Anthony Belle MD at [facility] MAIN OR Cataract surg OU. 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
--- OUTSIDE RECORDS SUMMARY | 2024-02-29 02:55 | XMS_ITS | Encounter Summary ---
Author Organization [facility] Address [address] [place] [address] Care Team Providers Care Long Term Care Social Worker Name Role Phone Maya Burden MD Primary Care Provider [phone] Encounter Details Date Type Department Care Team (Latest Contact Info) Description 03/13/2015 16:35 EDT - 03/13/2015 23:59 EDT Hospital Encounter [address] [address] Unknown, Provider, Discharge Disposition: Home or Self [...] on filedocumented in this encounter Care Teams Long Term Care Social Worker Relationship Specialty Start Date End Date Maya Burden MD [address] [place] [address] [place] [address] PCP - General 10/02/11 11/08/19 documented as of this encounter
--- OUTSIDE RECORDS SUMMARY | 2024-02-29 02:55 | XMS_ITS | Encounter Summary ---
Author Organization [facility] Address [address] [place] [address] Care Team Providers Care Public Services Assistant Name Role Phone Maya Gambino MD Primary Care Provider [phone] Encounter Details Date Type Department Care Team (Late st Contact Info) Description 03/13/2015 Results Only [facility]- [facility] [phone] Lucero Albarado, [address] [place], [place] [phone] Social History Tobacco Use Types Packs/Day Years [...] ? JENNIFER SANTIZO ? Accession #: ? [id number] ? : ? 1945 (Age: 69) ??F [...] a scant amount of amorphous contents. ??(Dr. Coombs)/[facility] Document reviewed and electronically signed by: [...] Domingo 03/15/2015 9:31 AM End of Report [facility] 03/13/2015 16:0 8 EDT 03/14/2015 16:08 EDT Lucero Albarado DO PATHOLOGY ORDER LUIS ENRIQUE [facility] [address] [place] [address] documented in this encounter Visit Diagnoses Not on filedocumented in this encounter Care Teams Public Services Assistant Relationship Specialty Start Date End Date Maya Gambino MD [address] [place] [address] [place] [address] PCP - General 10/02/11 11/08/19 documented as of this encounter
--- OUTSIDE RECORDS SUMMARY | 2024-02-29 02:55 | XMS_ITS | Encounter Summary ---
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 Patsy Shelton MD [facility] [place] [address] Unknown None Referral ID Status Reason Start Date Expiration Date Visits Requested Visits Authorized [id number] Authorized Evaluate and Treat Non DH PCP 12/14/2023 06/11/2024 12 12 Reason for Visit * Reason Comments Follow-up Encounter Details Date Type Department Care Team (Latest Contact Info) Description 12/14/2023 3:30 PM EDT TH Visit (TeleHealth) Radiation Oncology at [address] [phone] Patsy Shelton MD [facility] [place] [address] 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 Prescription for trental (pentoxifylline) sent to [facility]. Take 1 of the tablets 3 times/daywith [...] CT chest result. 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 Subjective: No new c/o. 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
--- OUTSIDE RECORDS SUMMARY | 2024-02-29 02:55 | XMS_ITS | Referral Summary ---
Author Organization [facility] Address [address] [place] [address] Care Team Providers Care Wrapper Hand Name Role Phone Navid Avendaño MD Primary Care Provider [phone] Social History Tobacco Use Types Packs/Day Years Used Date Smoking Tobacco: Never Assessed Interpersonal Safety Answer Date Record ed Physically Hurt Never 02/04/2020 Verbally Threaten Not on file 02/04/2020 Sex and Gender Information Value Date Recorded Sex Assigned at Not on file Gender Identity Female 03/04/2020 7:29 EDT Sexual Orientation Not on file Plan of Treatment Not on file Care Teams Wrapper Hand Relationship Specialty Start Date End Date Navid Avendaño MD [address] [place] [address] PCP - General 11/09/19
--- OUTSIDE RECORDS SUMMARY | 2024-02-29 02:55 | XMS_ITS | Encounter Summary ---
Author Organization [facility] Address [facility] [place] [address] [address] Care Team Providers Care Senior Health Consultant Name Role Phone Navid Avendaño MD Primary Care Provider [phone] Encounter Details Date Type Department Care Team [...] 2:30 PM EDT Office Visit Hematology/Oncology at [address] [phone] Edgar Carreon MD [facility] [place] [address] Kadie Gaming APRN [facility] [place] [address] 05/15/2024 3:30 PM EST Office Visit Radiation Oncology at [address] [phone] Patsy Shelton MD [facility] [place] [address] documented as of this encounter Visit Diagnoses Not on filedocumented in this encounter Care Teams Senior Health Consultant Relationship Specialty Start Date End Date Navid Avendaño MD [address] [place] [address] PCP - General Family Medicine 01/24/19 documented as of this encounter
--- OUTSIDE RECORDS SUMMARY | 2024-02-29 02:55 | XMS_ITS | Encounter Summary ---
Author Organization [facility] Address [address] [place] [address] Care Team Providers Care Manager Motor Name Role Phone Maya Burden MD Primary Care Provider Encounter Details Date Type Department Care Team (Late st Contact Info) Description 01/27/2012 Results Only [facility]- [facility] [phone] Lucero Albarado, [address] [place], [place] [phone] Social History Tobacco Use Types Packs/Day Years [...] taken when reading/interpreting unformatted reports. Name: ? JENNIFRE SANTIZO ? Accession #: ? [id number] ? : ? 1945 (Age: 66) ??F [...] (A1) papule bisected, and (A2) aggregate. ??(Nuria Chadwick)/[facility] End of Report [facility] 01/27/2012 01/28/2012 16: 12 EDT Lucero Albarado DO PATHOLOGY ORDER LUIS ENRIQUE [facility] [address] [place] [address] documented in this encounter Visit Diagnoses Not on filedocumented in this encounter Care Teams Manager Motor Relationship Specialty Start Date End Date Maya Burden MD [address] [place] [address] [place] [address] PCP - General 10/02/11 11/08/19 documented as of this encounter
--- OUTSIDE RECORDS SUMMARY | 2024-02-29 02:55 | XMS_ITS | Encounter Summary ---
Author Organization [facility] Address [address] [place] [address] Care Team Providers Care Fairmont Gold Attendant Name Role Phone Maya Burden MD Primary Care Provider Encounter Details Date Type Department Care Team (Late st Contact Info) Description 07/04/2018 Results Only [facility] [phone] Lucero Albarado, [address] [place], [place] [phone] Social History Tobacco Use Types Packs/Day Years [...] cells. ??Deeper sections show similar features. ??(Dr. Coombs)/[facility] Document reviewed and electronically signed by: CHAKA COOBMS MD Report ??Date: 07/07/2018 16:09 By the signature above, the attending physician certifies that he/she has personally conducted a gross and/or microscopic examination of the described specimens and rendered or confirmed the above diagnosis. Specimen(s) Received: Right nasal tip Clinical History: History skin cancer; please fax report to [phone] Gross Description: ? Received in formalin labelled with proper patient identification (initials B, J) and R nasal tip are two pieces of a fragmented shave biopsy of patel-marie pearly skin (reconstructed 0.5 x 0.5 x 0.1 cm). The specimens are inked and submitted entirely in 1. CURTIS Rodriguez ([facility]) 07/06/2018 3:52 PM End of Report [facility] 07/04/2018 15:4 0 EST 07/06/2018 15:40 EST Lucero Albarado DO PATHOLOGY ORDER LUIS ENRIQUE [facility] [address] [place] [address] documented in this encounter Visit Diagnoses Not on filedocumented in this encounter Care Teams Fairmont Gold Attendant Relationship Specialty Start Date End Date Maya Burden MD [address] [place] [address] [place] [address] PCP - General 10/02/11 11/08/19 documented as of this encounter
--- OUTSIDE RECORDS SUMMARY | 2024-02-29 02:55 | XMS_ITS | Encounter Summary ---
Author Organization [facility] Address [address] [place] [address] Care Team Providers Care Fur Comber Name Role Phone Unavailable Primary Care Provider Unavailabl e Encounter Details Date Type Department Care Team (Late st Contact Info) Description 07/19/2003 Results Only [facility] - Map conversion [address] [place] [address] Irving Wolfe MD [address] [place] [address] Social History Tobacco Use Types Packs/Day Years [...] ? JENNIFER SANTIZO ? Accession #: ? [id number] ? : ? 1945 (Age: 58) ??F [...] is entirely submitted in one cassette. ??(Luis Rodriguez)/[facility] End of Report [facility] 07/19/2003 07/19/2003 15: 19 EST Irving Wolfe MD PATHOLOGY ORDERABLES [facility] [address] [place] [address] documented in this encounter Visit Diagnoses Not on filedocumented in this encounter
--- OUTSIDE RECORDS SUMMARY | 2024-02-29 02:55 | XMS_ITS | Encounter Summary ---
Author Organization [facility] Address [address] [place] [address] Care Team Providers Care Performance Improvement Analyst Name Role Phone Maya Burden MD Primary Care Provider [phone] Encounter Details Date Type Department Care Team (Late st Contact Info) Description 08/02/2012 Results Only [facility] [phone] Lucero Albarado, [address] [place], [place] [phone] Social History Tobacco Use Types Packs/Day Years [...] ? JENNIFER SANTIZO ? Accession #: ? [id number] ? : ? 1945 (Age: 67) ??F [...] fibrosis with a reactive vascular proliferation. (Dr. Coombs)/[facility] Document reviewed and electronically signed by: CHAKA [...] entirely as block (1) following filtration. (Katie Nguyễn)/[facility] End of Report [facility] 08/02/2012 20:0 5 EST 08/03/2012 20:05 EST Lucero Albarado DO PATHOLOGY ORDER LUIS ENRIQUE Performing Organization Address City/State/[facility] Co de Phone Number [facility] [address] [place] [address] documented in this encounter Visit Diagnoses Not on filedocumented in this encounter Care Teams Performance Improvement Analyst Relationship Specialty Start Date End Date Maya Burden MD [address] [place] [address] [place] [address] PCP - General 10/02/11 11/08/19 documented as of this encounter
--- OUTSIDE RECORDS SUMMARY | 2024-02-29 02:55 | XMS_ITS | Encounter Summary ---
Author Organization [facility] Address [address] [place] [address] Care Team Providers Care Hose Inspector And Patcher Name Role Phone Maya Burden MD Primary Care Provider [phone] Encounter Details Date Type Department Care Team (Late st Contact Info) Description 11/11/2018 Results Only [facility]- [facility] [phone] Sonya Short MD [facility] [address] [place], [place] [phone] Social History Tobacco Use Types Packs/Day Years [...] ? JENNIFER SANTIZO ? Accession #: ? [id number] ? : ? 1945 (Age: 73) ??F [...] will be issued in separate procedure reports. School Social Worker slides of this case were reviewed [...] Tissue submitted: Paraffin embedded tissue block labelled [id number] (#1) from [facility]. Fixative: ??Formalin ??(This immunohistochemical assay is intended for paraffin-embedded tissue fixed in 10% neutral buffered formalin for 6-72 hours; 18-24 hours with maximum tissue thickness of 3-4 millimeters is recommended for best assay performance. ??Her2 should not be performed on alcohol fixed tissues.) The assay was performed under appropriate conditions according to the table games manager's instructions with appropriate assay and tissue controls using an Anti-Her2 (4B5) Rabbit Monoclonal Antibody ([employer]). Her2 IHC Scoring Guidelines (invasive tumor component [...] performance characteristics have been determined by [facility] and/or by the referring laboratory. [...] Tissue submitted: Paraffin embedded tissue block labelled [id number] (#1) from [facility]. Immunohistochemical assays for estrogen receptors (SP1, [employer]) and progesterone receptors (16, Leica) have been [...] Recommendations for IHC testing of ER and [place]. J Clin Oncol 2010;28:3190-9373. NOTE: ??One or more of the reagents [...] performance characteristics have been determined by [facility] and/or by the referring laboratory. [...] confirmed the above diagnosis. End of Report [facility] 11/11/2018 16:0 5 EDT 11/11/2018 16:05 EDT Sonya Short MD PATHOLOGY ORDERA ROGER [facility] [address] [place] [address] documented in this encounter Visit Diagnoses Not on filedocumented in this encounter Care Teams Hose Inspector And Patcher Relationship Specialty Start Date End Date Maya Burden MD [address] [place] [address] [place] [address] PCP - General 10/02/11 11/08/19 documented as of this encounter
--- OUTSIDE RECORDS SUMMARY | 2024-02-29 02:55 | XMS_ITS | Encounter Summary ---
Author Organization [facility] Address [address] [place] [address] Care Team Providers Care Data Processing Clerk Name Role Phone Maya Burden MD Primary Care Provider [phone] Encounter Details Date Type Department Care Team (Late st Contact Info) Description 04/06/2012 Results Only [facility] [phone] Lucero Albarado, [address] [place], [place] [phone] Social History Tobacco Use Types Packs/Day Years [...] ? JENNIFER SANTIZO ? Accession #: ? [id number] ? : ? 1945 (Age: 66) ??F [...] bisected and entirely submitted as (C). ??(Nuria Chadwick)/[facility] End of Report [facility] 04/06/2012 04/07/2012 16: 05 EDT Lucero Albarado DO PATHOLOGY ORDER LUIS ENRIQUE [facility] [address] [place] [address] documented in this encounter Visit Diagnoses Not on filedocumented in this encounter Care Teams Data Processing Clerk Relationship Specialty Start Date End Date Maya Burden MD [address] [place] [address] [place] [address] PCP - General 10/02/11 11/08/19 documented as of this encounter
--- OUTSIDE RECORDS SUMMARY | 2024-02-29 02:56 | XMS_ITS | Encounter Summary ---
Author Organization [facility] Address [facility] [address] [place] [address] Care Team Providers Care Engraved Roller Inspector Name Role Phone Navid Avendaño MD Primary Care Provider [phone] Encounter Details Date Type Department Care Team (Late st Contact Info) Description 09/07/2022 Orders Only Hematology/Oncology at [address] [phone] Ethel Christianson, RN Hormone receptor positive malignant [...] 2:30 PM EDT Office Visit Hematology/Oncology at [address] [phone] Edgar Carreon MD [facility] DR HEMATOLOGY [place] [address] Kadie Gaming APRN [facility] [place] [address] 05/15/2024 3:30 PM EST Office Visit Radiation Oncology at [address] [phone] Patsy Shelton MD [facility] [place] [address] documented as of this encounter Visit Diagnoses Diagnosis 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
--- OUTSIDE RECORDS SUMMARY | 2024-02-29 02:56 | XMS_ITS | Encounter Summary ---
Author Organization [facility] [place] [address] Care Team Providers Care Patient Transporter Name Role Phone Navid Avendaño MD Primary Care Provider [phone] Encounter Details Date Type Department Care Team (Late Contact Info) Description 04/29/2023 Telephone Radiation Oncology at [address] [phone] Rachel Graham Social History Tobacco [...] 2:30 PM EDT Office Visit Hematology/Oncology at [address] [phone] Edgar Carreon MD [facility] [place] [address] Kadie Gaming APRN [facility] [place] [address] 05/15/2024 3:30 PM EST Office Visit Radiation Oncology at [address] [phone] Patsy Shelton MD [facility] [place] [address] documented as of this encounter Visit Diagnoses Not on filedocumented in this encounter Care Teams Patient Transporter Relationship Specialty Start Date End Date Navid Avendaño MD [address] [place] [address] PCP - General Family Medicine 01/24/19 documented as of this encounter
--- OUTSIDE RECORDS SUMMARY | 2024-02-29 02:56 | XMS_ITS | Encounter Summary ---
Author Organization [facility] Address [facility] [place] [place] [address] Care Team Providers Care City Superintendent Name Role Phone Navid Avendaño MD Primary Care Provider [phone] Encounter Details Date Type Department Care Team [...] PM EDT Office Visit Hematology/Oncology at [address] [phone] Edgar Carreon MD [facility] HEMATOLOGY [place] [address] Kadie Gaming APRN [facility] [place] [address] 05/15/2024 3:30 PM EST Office Visit Radiation Oncology at [address] [phone] Patsy Shelton MD [facility] [place] [address] documented as of this encounter Visit Diagnoses Not on filedocumented in this encounter Care Teams City Superintendent Relationship Specialty Start Date End Date Navdi Avendaño MD [address] [place] [address] PCP - General Family Medicine 01/24/19 documented as of this encounter
--- OUTSIDE RECORDS SUMMARY | 2024-02-29 02:56 | XMS_ITS | Encounter Summary ---
[place] [address] Care Team Providers Care Beam Builder Helper Name Role Phone Navid Avendaño MD Primary Care Provider [phone] Reason for Visit * Reason Comments IV Medication IV sucrose * Treatment/Therapy Plan Authorization (Routine) - Closed Specialty Diagnoses / Procedures Referred By Contac t Referred To Contact Diagnoses Iron deficiency anemia, unspecified iron deficiency anemia type Ethel Christianson RN Referral ID Status Reason Start Date Expiration Date Visits Re quested Visits Authorized [id number] Closed 11/13/2020 11/13/2021 99 99 Encounter Details Date Type Department Care Team (Late st Contact Info) Description 12/10/2020 1:30 PM EDT Infusion Hematology Oncology at [address] [phone] Iron deficiency anemia, unspecified iron [...] 2:30 PM EDT Office Visit Hematology/Oncology at [address] [phone] Edgar Carreon MD [facility] DR HEMATOLOGY [place] [address] Kadie Gaming APRN [facility] [place] [address] 05/15/2024 3:30 PM EST Office Visit Radiation Oncology at [address] [phone] Patsy Shelton MD [facility] [place] [address] documented as of this encounter Visit Diagnoses [...] mL/hr documented in this encounter Care Teams Beam Builder Helper Relationship Specialty Start Date End Date Navid Avendaño MD [address] [place] [address] [address] [facility] 1 [place] [address] PCP - General Family Medicine 01/24/19 documented as of this encounter
--- OUTSIDE RECORDS SUMMARY | 2024-02-29 02:56 | XMS_ITS | Encounter Summary ---
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 Breast, left, core needle [...] report, 1+/Negative B ??- Outside slide(s) labeled [id number], collection date 12/07/2018. 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 - Ductal carcinoma in-situ (DCIS), high grade with comedonecrosis. - See Synoptic report. B - Lymph node, Sheridan #1, left axillary, excision (4 slides labeled B)- - Metastatic carcinoma to one of two lymph nodes. - The anita metastasis measures 1.9 cm. - Extranodal invasion is present. 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 C - Lymph node, left axilla, excision (3 slides labeled C)- - One benign node. D - Lymph node, Sheridan #2, left axillary, excision (1 slide labeled D)- - One benign node. E - Lymph node, Sheridan #3, left axillary, excision (2 slides labeled [...] Lymph Nodes Examined: ?6 ? Number of Sheridan Nodes Examined: ?5 Pathologic Stage Classification (pTNM, [...] ER+/WI+, Her2 IHC neg, LN 2/6, DCIS, [id number] (stage IIA) Treatment: -12/07/2018 left mastectomy and [...] PM EDT Office Visit Hematology/Oncology at [address] [phone] Edgar Carreon MD [facility] HEMATOLOGY [place] [address] Kadie Gaming APRN [facility] [place] [address] 05/15/2024 3:30 PM EST Office Visit Radiation Oncology at [address] [phone] Patsy Shelton MD [facility] [place] [address] documented as of this encounter Visit Diagnoses Diagnosis 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
--- OUTSIDE RECORDS SUMMARY | 2024-02-29 02:56 | XMS_ITS | Encounter Summary ---
Author Organization [facility] Address [facility] [place] [address] Care Team Providers Care Aircraft Mechanic Electrical And Radio Name Role Phone Navid Avendaño MD Primary Care Provider +1 [phone] Encounter Details Date Type Department Care Team [...] PM EDT Office Visit Hematology/Oncology at [address] [phone] Edgar Carreon MD [facility] HEMATOLOGY [place] [address] Kadie Gaming APRN [facility] [place] [address] 05/15/2024 3:30 PM EST Office Visit Radiation Oncology at [address] [phone] Patsy Shelton MD [facility] [place] [address] documented as of this encounter Visit Diagnoses Not on filedocumented in this encounter Care Teams Aircraft Mechanic Electrical And Radio Relationship Specialty Start Date End Date Navid Avendaño MD [address] [place] [address] PCP - General Family Medicine 01/24/19 documented as of this encounter
--- OUTSIDE RECORDS SUMMARY | 2024-02-29 02:56 | XMS_ITS | Encounter Summary ---
Author Organization [facility] Address [facility] [place] [place] [address] Care Team Providers Care Dolphin Researcher Name Role Phone Navid Avendaño MD Primary Care Provider +1 [phone] Reason for Visit * Reason Comments Follow-up Encounter Details Date Type Department Care Team (Late st Contact Info) Description 03/29/2023 9:00 AM EDT Office Visit Radiation Oncology at [address] [phone] Patsy Shelton MD [facility] [place] [address] Dense breast tissue on mammogram; S/P radiotherapy [...] w/dominant pattern of micropapillary ca, gr 3, ER+NM+,Her2 IHC neg, s/p mastectomy & SNB, pT2 [...] ROBOTIC performed by Anthony Belle MD at [facility] MAIN OR PRO LAPAROSCOPY W TOT HYSTERECTUTERUS <=250 GRAM W TUBE/OVARY N/A 03/28/2015 LAPAROSCOPY,TOTAL HYST, UTERUS<250GM, EVER TYBE &/OR OVARY, ROBOTIC ASSIST performed by Anthony Belle MD at [facility] MAIN OR Cataract surg OU. [...] PM EDT Office Visit Hematology/Oncology at [address] [phone] Edgar Carreon MD [facility] DR HEMATOLOGY [place] [address] Kadie Gaming APRN [facility] [place] [address] 05/15/2024 3:30 PM EST Office Visit Radiation Oncology at [address] [phone] Patsy Shelton MD [facility] [place] [address] documented as of this encounter Visit Diagnoses Diagnosis Dense breast tissue on mammogram S/P radiotherapy Convalescence following radiotherapy documented in this encounter Care Teams Dolphin Researcher Relationship Specialty Start Date End Date Navid Avendaño MD [address] [place] [address] PCP - General Family Medicine 01/24/19 documented as of this encounter
--- OUTSIDE RECORDS SUMMARY | 2024-02-29 02:56 | XMS_ITS | Encounter Summary ---
Author Organization [facility] [place] [address] Care Team Providers Care Physician Relations Representative Name Role Phone Navid Avendaño MD Primary Care Provider +1 [phone] Encounter Details Date Type Department Care Team (Late Contact Info) Description 02/20/2021 Ancillary Procedure [place] [address] Navid Avendaño MD [address] [place] [address] Social History Tobacco Use Types [...] PM EDT Office Visit Hematology/Oncology at [address] [phone] Edgar Carreon MD [facility] DR HEMATOLOGY [place] [address] Kadie Gaming APRN [facility] [place] [address] 05/15/2024 3:30 PM EST Office Visit Radiation Oncology at [address] [phone] Patsy Shelton MD [facility] [place] [address] documented as of this encounter Procedures Procedure Name Priority Date/Time Associated Diagnosis Comments FILM LIBRARY STORAGE ONLY MAMMO Routine 02/20/2021 12:00 AM EDT documented in this encounter Results * Film Library- Storage Only Mammo (02/20/2021 12:00 AM EDT) Narrative [facility] - 03/04/2021 1:48 PM EDT This exam is auto-finalizing. It's purpose is for storage only. Navid Avendaño MD IMG FILM LIBRARY ORDERABLES Performing Organization Address City/State/[facility] Co de Phone Number [place], [place] documented in this encounter Visit Diagnoses Not on filedocumented in this encounter Care Teams Physician Relations Representative Relationship Specialty Start Date End Date Navid Avendaño MD [address] [place] [address] PCP - General Family Medicine 01/24/19 documented as of this encounter
--- OUTSIDE RECORDS SUMMARY | 2024-02-29 02:56 | XMS_ITS | Encounter Summary ---
Author Organization [facility] [place] [address] Care Team Providers Care Data Warehouse Specialist Name Role Phone Navid Aevndaño MD Primary Care Provider +1 [phone] Encounter Details Date Type Department Care Team (Late Contact Info) Description 04/29/2023 Orders Only [place] [address] Patsy Shelton MD [facility] [place] [address] Dense breast tissue on mammogram, unspecified type [...] PM EDT Office Visit Hematology/Oncology at [address] [phone] Edgar Carreon MD [facility] [place] [address] Kadie Gaming APRN [facility] [place] [address] 05/15/2024 3:30 PM EST Office Visit Radiation Oncology at [address] [phone] Patsy Shelton MD [facility] [place] [address] documented as of this encounter Visit Diagnoses Diagnosis Dense breast tissue on mammogram, unspecified type documented in this encounter Care Teams Data Warehouse Specialist Relationship Specialty Start Date End Date Navid Avendaño MD [address] [place] [address] [address] PCP - General Family Medicine 01/24/19 documented as of this encounter
--- OUTSIDE RECORDS SUMMARY | 2024-02-29 02:56 | XMS_ITS | Encounter Summary ---
[place] [address] Care Team Providers Care Tetryl Blender Operator Name Role Phone Navid Avendaño MD Primary Care Provider +1 [phone] Reason for Visit * Reason Comments IV Medication Venofer * Treatment/Therapy Plan Authorization (Routine) - Closed Specialty Diagnoses / Procedures Referred By Contac t Referred To Contact Diagnoses Iron deficiency anemia, unspecified iron deficiency anemia type Ethel Christianson RN Referral ID Status Reason Start Date Expiration Date Visits Re quested Visits Authorized [id number] Closed 11/13/2020 11/13/2021 99 99 Encounter Details Date Type Department Care Team (Late st Contact Info) Description 12/03/2020 2:00 PM EDT Infusion Hematology Oncology at [address] [phone] Iron deficiency anemia, unspecified iron [...] and BSA by Delmis Dewey RN and [facility]. REACTIONS (DESCRIPTION, TIME, INTERVENTION AND EFFECTIVENESS) [...] PM EDT Office Visit Hematology/Oncology at [address] [phone] Edgar Carreon MD [facility] DR HEMATOLOGY [place] [address] Kadie Gaming APRN [facility] [place] [address] 05/15/2024 3:30 PM EST Office Visit Radiation Oncology at [address] [phone] Patsy Shelton MD [facility] [place] [address] documented as of this encounter Visit Diagnoses [...] mL/hr documented in this encounter Care Teams Tetryl Blender Operator Relationship Specialty Start Date End Date Navid Avendaño MD [address] [place] [address] PCP - General Family Medicine 01/24/19 documented as of this encounter
--- OUTSIDE RECORDS SUMMARY | 2024-02-29 02:56 | XMS_ITS | Encounter Summary ---
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 Santizo returns to the [place] [...] Tamoxifen alone A ??- Outside slide(s) labeled [id number], collection date 11/11/2018. 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 On submitted slides (reviewed) - ER immunoreactivity: Positive (>90% cancer cells with immunostaining) Stain intensity: Intermediate and Strong GA immunoreactivity: Positive (>90% cancer cells with immunostaining) Stain intensity: Strong HER2 IHC - Per report, 1+/Negative B ??- Outside slide(s) labeled [id number], collection date 12/07/2018. 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 - Ductal carcinoma in-situ (DCIS), high grade with comedonecrosis. - See Synoptic report. B - Lymph node, Black[place] #1, left axillary, excision (4 slides labeled B)- - Metastatic carcinoma to one of two lymph nodes. - The anita metastasis measures 1.9 cm. - Extranodal invasion is present. 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 C - Lymph node, left axilla, excision (3 slides labeled C)- - One benign node. D - Lymph node, [place] #2, left axillary, excision (1 slide labeled D)- - One benign node. E - Lymph node, [place] #3, left axillary, excision (2 slides labeled E)- - Two benign nodes. F - Medial Skin edge, excision (2 slides labeled F) - - Benign skin and subcutis. Specimen ?Procedure: ??Total mastectomy ?Specimen Laterality: ?? Left Tumor ?Histologic Type: ?? Invasive carcinoma of no special type (ductal, not ? otherwise specified) ?Histologic Type Comments: ?? with micropapillary features ?Histologic Grade ([place] Histologic Score) ? Glandular (Acinar) / Tubular [...] Lymph Nodes Examined: ?6 ? Number of [place]lick Nodes Examined: ?5 Pathologic Stage Classification (pTNM, AJCC 8th Edition) ?Primary Tumor (Invasive Carcinoma) (pT): ?pT2 ?Regional Lymph Nodes (pN) ? Category (pN): ?? pN1a Labs: 03/17/22- WBC-5.78 Hgb/Hct-11.5/35.8 Plt-168 ANC-4.17 Na-139 K+-4.5 BUN/Cr-18/1.3 Glucose-131 Ca-9.3 T. Bili-0.3 AST-20 ALT-34 Alk phos-95 Albumin-3.7 Ferritin-131 02/04/21- WBC-6.04 Hgb/Hct-10.5/33.4 MCV-87.7 Plt-162 ANC-4.39 Na-142 K+-43. BUN/Cr-20/1.5 Glucose-121 Ca-8.8 T. Bili-0.2 AST-14 ALT-25 Alk phos-101 Albumin-3.7 BekC4K-3.0 Ferritin-215 11/08/20- WBC-6.67 Hgb/Hct-10.5/33.7 Plt-197 ANC-5.02 Na-142 [...] with focal micropapillary features.gr3, LVI-, marilynn neg, ER+/GA+, Her2 IHC neg, LN 2/6, DCIS, [id number] (stage IIA) Treatment: -12/07/2018 left mastectomy and [...] questions/concerns or new symptoms. Ethel Christianson MSN, SEC REPORTING CONSULTANT, AOCNP Medical Oncology I spent over 30 minutes today in ROS and physical exam, review of chart, labs and tests and counseling and coordination of care and documentation in record. documented in this encounter Plan of Treatment Upcoming Encounters Date Type Department Care Team (Late st Contact Info) Description 03/21/2024 2:30 PM EDT Office Visit Hematology/Oncology at [address] [phone] Edgar Carreon MD [facility] DR [place] [address] Kadie Gaming APRN [facility] [place] [address] 05/15/2024 3:30 PM EST Office Visit Radiation Oncology at [address] [phone] Patsy Shelton MD [facility] [place] [address] documented as of this encounter Visit Diagnoses Diagnosis 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
--- OUTSIDE RECORDS SUMMARY | 2024-02-29 02:56 | XMS_ITS | Encounter Summary ---
Author Organization [facility] Address [facility] [place] [address] Care Team Providers Care Ceramic Maker Demonstrator Name Role Phone Navid Avendaño MD Primary Care Provider +1 [phone] Encounter Details Date Type Department Care Team (Late st Contact Info) Description 08/05/2021 Orders Only Hematology/Oncology at [address] [phone] Ethel Christianson RN Iron deficiency anemia, unspecified [...] 2:30 PM EDT Office Visit Hematology/Oncology at [address] [phone] Edgar Carreon MD [facility] DR [place] [address] Kadie Gaming APRN [facility] [place] [address] 05/15/2024 3:30 PM EST Office Visit Radiation Oncology at [address] [phone] Patsy Shelton MD [facility] [place] [address] documented as of this encounter Visit Diagnoses Diagnosis Iron deficiency anemia, unspecified iron deficiency anemia type 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
--- OUTSIDE RECORDS SUMMARY | 2024-02-29 02:56 | XMS_ITS | Encounter Summary ---
Author Organization [facility] [place] [address] Care Team Providers Care Clinical Analyst Name Role Phone Navid Avendaño MD Primary Care Provider +1 [phone] Encounter Details Date Type Department Care Team (Late Contact Info) Description 02/26/2023 Ancillary Procedure [place] [address] Navid Avendaño MD [address] [place] [address] Social History Tobacco Use Types [...] 2:30 PM EDT Office Visit Hematology/Oncology at [address] [phone] Edgar Carreon MD [facility] DR HEMATOLOGY [place] [address] Kadie Gaming APRN [facility] [place] [address] 05/15/2024 3:30 PM EST Office Visit Radiation Oncology at [address] [phone] Patsy Shelton MD [facility] [place] [address] documented as of this encounter Procedures Procedure Name Priority Date/Time Associated Diagnosis Comments FILM LIBRARY STORAGE ONLY MAMMO Routine 02/26/2023 12:00 AM EDT documented in this encounter Results * Film Library- Storage Only Mammo (02/26/2023 12:00 AM EDT) Narrative [facility] - 03/06/2023 9:11 PM EDT This exam is auto-finalizing. It's purpose is for storage only. Navid Avendaño MD IMG FILM LIBRARY ORDERABLES Performing Organization Address City/State/[facility] Co de Phone Number [place], [place] documented in this encounter Visit Diagnoses Not on filedocumented in this encounter Care Teams Clinical Analyst Relationship Specialty Start Date End Date Nvaid Avendaño MD [address] [place] [address] PCP - General Family Medicine 01/24/19 documented as of this encounter
--- OUTSIDE RECORDS SUMMARY | 2024-02-29 02:56 | XMS_ITS | Encounter Summary ---
Author Organization [facility] Address [facility] [place] [address] Care Team Providers Care Mechanical Facilities Technician Name Role Phone Navid Avendaño MD Primary Care Provider +1 -[phone] Reason for Visit * Reason Comments Radiation Consult Encounter Details Date Type Department Care Team (Late st Contact Info) Description 02/05/2020 3:30 PM EDT Office Visit Radiation Oncology at [address] [phone] Patsy Shelton MD [facility] [place] [address] 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 [...] ROBOTIC performed by Anthony Belle MD at [facility] MAIN OR ? ? PRO LAPAROSCOPY W TOT HYSTERECTUTERUS <=250 GRAM W TUBE/OVARY N/A 03/28/2015 LAPAROSCOPY,TOTAL HYST, UTERUS<250GM, EVER TYBE &/OR OVARY, ROBOTIC ASSIST performed by Anthony Belle MD at [facility] MAIN OR Cataract surg OU. 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
--- OUTSIDE RECORDS SUMMARY | 2024-02-29 02:56 | XMS_ITS | Encounter Summary ---
Author Organization [facility] Address [facility] [place] [address] Care Team Providers Care Sales Apprentice Name Role Phone Navid Avendaño MD Primary Care Provider +1 [phone] Reason for Visit * Reason Onset Date Comments Labs Only 08/26/2021 Encounter Details Date Type Department Care Team (Late Contact Info) Description 08/26/2021 Telephone Hematology/Oncology at [address] [phone] Penny Chew RN Labs Only [...] 2:30 PM EDT Office Visit Hematology/Oncology at [address] [phone] Edgar Carreon MD [facility] [place] [address] Kadie Gaming APRN [facility] [place] [address] 05/15/2024 3:30 PM EST Office Visit Radiation Oncology at [address] [phone] Patsy Shelton MD [facility] [address] documented as of this encounter Visit Diagnoses Not on filedocumented in this encounter Care Teams Sales Apprentice Relationship Specialty Start Date End Date Navid Avendaño MD [address] [place], [place] [address] PCP - General Family Medicine 01/24/19 documented as of this encounter
--- OUTSIDE RECORDS SUMMARY | 2024-02-29 02:56 | XMS_ITS | Encounter Summary ---
Author Organization [facility] Address [facility] [place] [address] Care Team Providers Care Junior Sales Assistant Name Role Phone Navid Avendaño MD Primary Care Provider +1 -[phone] Encounter Details Date Type Department Care Team (Late st Contact Info) Description 06/10/2021 Refill Hematology/Oncology at [address] [phone] Ethel Christianson, RN Hormone receptor positive malignant [...] PM EDT Office Visit Hematology/Oncology at [address] [phone] Edgar Carreon MD [facility] [address] [place] [address] Kadie Gaming APRN [facility] [place] [address] 05/15/2024 3:30 PM EST Office Visit Radiation Oncology at [address] [phone] Patsy Shelton MD [facility] [place] [address] documented as of this encounter Visit Diagnoses Diagnosis 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
--- OUTSIDE RECORDS SUMMARY | 2024-02-29 02:56 | XMS_ITS | Encounter Summary ---
Author Organization [facility] [place] [place] [address] Care Team Providers Care Food Safety Specialist Name Role Phone Navid Avendaño MD Primary Care Provider +1 -[phone] Reason for Visit * Reason Comments Medication Refill Encounter Details Date Type Department Care Team (Late Contact Info) Description 09/05/2020 Refill [place] [phone] Edgar Carreon MD [facility] DR HEMATOLOGY [place] [address] 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 [...] PM EDT Office Visit Hematology/Oncology at [address] [phone] Edgar Carreon MD [facility] DR HEMATOLOGY [place] [address] Kadie Gaming APRN [facility] [place] [address] 05/15/2024 3:30 PM EST Office Visit Radiation Oncology at [address] [phone] Patsy Shelton MD [facility] DR [place] [address] documented as of this encounter Visit Diagnoses Diagnosis 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
--- OUTSIDE RECORDS SUMMARY | 2024-02-29 02:56 | XMS_ITS | Encounter Summary ---
Author Organization [facility] Address [facility] [place] [place] [address] Care Team Providers Care Cork Insulation Setter Name Role Phone Navid Avendaño MD Primary Care Provider +1 -[phone] Reason for Visit * Reason Comments Medication Refill Encounter Details Date Type Department Care Team (Late Contact Info) Description 06/10/2021 Refill Hematology/Oncology at [address] [phone] Edgar Carreon MD [facility] HEMATOLOGY [place] [address] 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 [...] 2:30 PM EDT Office Visit Hematology/Oncology at [address] [phone] Edgar Carreon MD [facility] HEMATOLOGY [place] [address] Kadie Gaming APRN [facility] [place] [address] 05/15/2024 3:30 PM EST Office Visit Radiation Oncology at [address] [phone] Patsy Shelton MD [facility] [place] [address] documented as of this encounter Visit Diagnoses Diagnosis 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
--- OUTSIDE RECORDS SUMMARY | 2024-02-29 02:56 | XMS_ITS | Encounter Summary ---
Author Organization [facility] [place] [address] Care Team Providers Care Licensed Surveyor Name Role Phone Navid Avendaño MD Primary Care Provider +1 -[phone] Encounter Details Date Type Department Care Team (Late Contact Info) Description 08/12/2023 Telephone Hematology/Oncology at [address] [phone] Ivonne Pennington Social History Tobacco [...] 2:30 PM EDT Office Visit Hematology/Oncology at [address] [phone] Edgar Carreon MD [facility] DR [place] [address] Kadie Gaming APRN [facility] [place] [address] 05/15/2024 3:30 PM EST Office Visit Radiation Oncology at [address] [phone] Patsy Shelton MD [facility] [place] [address] documented as of this encounter Visit Diagnoses Not on filedocumented in this encounter Care Teams Licensed Surveyor Relationship Specialty Start Date End Date Navid Avendaño MD [address] [facility] [facility] [place], [place] [address] PCP - General Family Medicine 01/24/19 documented as of this encounter
--- OUTSIDE RECORDS SUMMARY | 2024-02-29 02:56 | XMS_ITS | Encounter Summary ---
Author Organization [facility] Address [facility] [place] [address] Care Team Providers Care Records Management Specialist Name Role Phone Navid Avendaño MD Primary Care Provider +1 -[phone] Encounter Details Date Type Department Care Team [...] 2:30 PM EDT Office Visit Hematology/Oncology at [address] [phone] Edgar Carreon MD [facility] HEMATOLOGY [place] [address] Kadie Gaming APRN [facility] DR [place] [address] 05/15/2024 3:30 PM EST Office Visit Radiation Oncology at [address] [phone] Patsy Shelton MD [facility] [place] [address] documented as of this encounter Visit Diagnoses Not on filedocumented in this encounter Care Teams Records Management Specialist Relationship Specialty Start Date End Date Navid Avendaño MD [address] [place] [address] PCP - General Family Medicine 01/24/19 documented as of this encounter
--- OUTSIDE RECORDS SUMMARY | 2024-02-29 02:56 | XMS_ITS | Encounter Summary ---
Author Organization [facility] Address [facility] [place] [place] [address] Care Team Providers Care Kaitara Taraka Name Role Phone Navid Avendaño MD Primary Care Provider +1 -[phone] Reason for Referral * Consultation (Routine) - Specialty Diagnoses / Procedures Referred By Moses damian Referred To Contact Dermatology Diagnoses Skin lesion Patsy Shelton MD [facility] [place] [address] Kingsley Vasques MD [address] [place] [address], [place] [address] Referral ID Status Reason Start Date Expiration Date V isits Requested Visits Authorized [id number] Consult, Test & Treat Non PCP 09/30/2020 03/29/2021 1 1 Reason for Visit * Reason Comments Radiation Follow-up Encounter Details Date Type Department Care Team (Late st Contact Info) Description 09/30/2020 3:30 PM EDT Office Visit Radiation Oncology at [address] [phone] Patsy Shelton MD [facility] [place] [address] Breast cancer screening by mammogram; Skin lesion [...] be a good idea to have a catalog specialist looks @ the sores in front of your ears. Someone will contact you to schedule an appointment with Dr. Vasques, a catalog specialist in [place]. Someone will call you to schedule right [...] w/dominant pattern of micropapillary ca, gr 3, ER+MO+, Her2 IHC neg, s/p mastectomy & SNB, [...] ROBOTIC performed by Anthony Belle MD at [facility] MAIN OR ? ? PRO LAPAROSCOPY W TOT HYSTERECTUTERUS <=250 GRAM W TUBE/OVARY N/A 03/28/2015 LAPAROSCOPY,TOTAL HYST, UTERUS<250GM, EVER TYBE &/OR OVARY, ROBOTIC ASSIST performed by Anthony Belle MD at [facility] MAIN OR Cataract surg OU. Physical Exam [...] PM EDT Office Visit Hematology/Oncology at [address] [phone] Edgar Carreon MD [facility] HEMATOLOGY [place] [address] Kadie Gaming APRN [facility] DR [place] [address] 05/15/2024 3:30 PM EST Office Visit Radiation Oncology at [address] [phone] Patsy Shelton MD [facility] DR [place] [address] Scheduled Referrals Name Type Priority Associated Diagnoses Order Schedule Referral to Dermatology Outpatient Referral Routine Skin lesion Ordered: 09/30/2020 documented as of this encounter Visit Diagnoses Diagnosis Breast cancer screening by mammogram Skin lesion Unspecified disorder of skin and subcutaneous tissue documented in this encounter Care Teams Kaitara Taraka Relationship Specialty Start Date End Date Navid Avendaño MD [address] [place] [address] PCP - General Family Medicine 01/24/19 documented as of this encounter
--- OUTSIDE RECORDS SUMMARY | 2024-02-29 02:56 | XMS_ITS | Encounter Summary ---
Author Organization [facility] Address [facility] [place] [place] [address] Care Team Providers Care Fish Packer Name Role Phone Navid Avendaño MD Primary Care Provider +1 -[phone] Encounter Details Date Type Department Care Team (Late Contact Info) Description 04/13/2023 Refill Hematology/Oncology at [address] [phone] Edgar Carreon MD [facility] HEMATOLOGY [place] [address] 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 [...] 2:30 PM EDT Office Visit Hematology/Oncology at [address] [phone] Edgar Carreon MD [facility] HEMATOLOGY [place] [address] Kadie Gaming APRN [facility] [place] [address] 05/15/2024 3:30 PM EST Office Visit Radiation Oncology at [address] [phone] Patsy Shelton MD [facility] DR [place] [address] documented as of this encounter Visit Diagnoses Diagnosis 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
--- OUTSIDE RECORDS SUMMARY | 2024-02-29 02:56 | XMS_ITS | Encounter Summary ---
Author Organization [facility] Address [facility] [place] [address] Care Team Providers Care Environmental Health Technician Name Role Phone Navid Avendaño MD Primary Care Provider +1 -[phone] Encounter Details Date Type Department Care Team (Late st Contact Info) Description 12/23/2020 Orders Only Hematology/Oncology at [address] [phone] Ethel Christianson RN Social History Tobacco Use [...] 2:30 PM EDT Office Visit Hematology/Oncology at [address] [phone] Edgar Carreon MD [facility] [address] [place] [address] Kadie Gaming APRN [facility] [place] [place] [address] 05/15/2024 3:30 PM EST Office Visit Radiation Oncology at [address] [phone] Patsy Shelton MD [facility] [place] [address] documented as of this encounter Visit Diagnoses Not on filedocumented in this encounter Care Teams Environmental Health Technician Relationship Specialty Start Date End Date Navid Avendaño MD [address] [place] [address] PCP - General Family Medicine 01/24/19 documented as of this encounter
--- OUTSIDE RECORDS SUMMARY | 2024-02-29 02:56 | XMS_ITS | Encounter Summary ---
Author Organization [facility] Address [facility] [place] [address] Care Team Providers Care Infrastructure Director Name Role Phone Navid Avendaño MD Primary Care Provider +1 -[phone] Reason for Visit * Reason Onset Date Comments Public Health Screening 08/09/2020 vaccine Encounter Details Date Type Department Care Team (Late Contact Info) Description 08/09/2020 Telephone Hematology Oncology at [address] [phone] Delmis Dewey, RN Public Health [...] PM EDT Office Visit Hematology/Oncology at [address] [phone] Edgar Carreon MD [facility] HEMATOLOGY [place] [address] Kadie Gaming APRN [facility] [place] [address] 05/15/2024 3:30 PM EST Office Visit Radiation Oncology at [address] [phone] Patsy Shelton MD [facility] [place] [address] documented as of this encounter Visit Diagnoses Not on filedocumented in this encounter Care Teams Infrastructure Director Relationship Specialty Start Date End Date Navid Avendaño MD [address] [place] [address] PCP - General Family Medicine 01/24/19 documented as of this encounter
--- OUTSIDE RECORDS SUMMARY | 2024-02-29 02:56 | XMS_ITS | Encounter Summary ---
Author [facility] [place] [address] Care Team Providers Care Rn Or Lvn Name Role Phone Navid Avendaño MD Primary Care Provider +1 -[phone] Encounter Details Date Type Department Care Team (Late st Contact Info) Description 03/29/2023 Telephone Radiation Oncology at [address] [phone] Celeste Flynn RN Social History [...] you please call PCP (Dr. Avendaño in [place]) office & let them know that she reports increased frequency of urination & has appt w/Dr. Avendaño 04/15/23? Patsy documented in this encounter Plan of Treatment Upcoming Encounters Date Type Department Care Team (Late st Contact Info) Description 03/21/2024 2:30 PM EDT Office Visit Hematology/Oncology at [address] [phone] Edgar Carreon MD [facility] DR [place] [address] Kadie Gaming APRN [facility] [place] [address] 05/15/2024 3:30 PM EST Office Visit Radiation Oncology at [address] [phone] Patsy Shelton MD [facility] [place] [address] documented as of this encounter Visit Diagnoses Not on filedocumented in this encounter Care Teams Rn Or Lvn Relationship Specialty Start Date End Date Navid Avendaño MD [address] [place] [address] [address] [place] [address] PCP - General Family Medicine 01/24/19 documented as of this encounter
--- OUTSIDE RECORDS SUMMARY | 2024-02-29 02:56 | XMS_ITS | Encounter Summary ---
Author Organization [facility] Address [facility] [place] [address] Care Team Providers Care Extrusion Process Operator Name Role Phone Navid Avendaño MD Primary Care Provider +1 -[phone] Encounter Details Date Type Department Care Team [...] PM EDT Office Visit Hematology/Oncology at [address] [phone] Edgar Carreon MD [facility] [place] [address] Kadie Gaming APRN [facility] [place] [address] 05/15/2024 3:30 PM EST Office Visit Radiation Oncology at [address] [phone] Patsy Shelton MD [facility] [place] [address] documented as of this encounter Visit Diagnoses Not on filedocumented in this encounter Care Teams Extrusion Process Operator Relationship Specialty Start Date End Date Navid Avendaño MD [address] [place] [address] PCP - General Family Medicine 01/24/19 documented as of this encounter
--- OUTSIDE RECORDS SUMMARY | 2024-02-29 02:56 | XMS_ITS | Encounter Summary ---
Author Organization [facility] Address [facility] [place] [address] Care Team Providers Care Orthopedic Nurse Name Role Phone Navid Avendaño MD Primary Care Provider +1 -[phone] Encounter Details Date Type Department Care Team (Late st Contact Info) Description 02/18/2021 1:30 PM EDT Office Visit Hematology/Oncology at [address] [phone] Edgar Carreon MD [facility] DR HEMATOLOGY [place] [address] Ethel Christianson RN Breast cancer, stage 2, [...] this encounter Progress Notes * Ethel Christianson, ADMITTED ATTORNEYS - 02/18/2021 1:30 PM EDT Images from the original note were not included. 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 Santizo returns to the [facility] for follow-up of breast cancer. [...] Her daughter and grandchild just moved to [place] leaving her here alone. Her ex son [...] Tamoxifen alone A ??- Outside slide(s) labeled [id number], collection date 11/11/2018. Breast, left, core needle [...] report, 1+/Negative B ??- Outside slide(s) labeled [id number], collection date 12/07/2018. 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 - Ductal carcinoma in-situ (DCIS), high grade with comedonecrosis. - See Synoptic report. B - Lymph node, Goldsmith #1, left axillary, excision (4 slides labeled B)- - Metastatic carcinoma to one of two lymph nodes. - The anita metastasis measures 1.9 cm. - Extranodal invasion is present. 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 C - Lymph node, left axilla, excision (3 slides labeled C)- - One benign node. D - Lymph node, Goldsmith #2, left axillary, excision (1 slide labeled D)- - One benign node. E - Lymph node, Goldsmith #3, left axillary, excision (2 slides labeled E)- - Two benign nodes. F - Medial Skin edge, excision (2 slides labeled F) - - Benign skin and subcutis. Specimen ?Procedure: ??Total mastectomy ?Specimen Laterality: ?? Left Tumor ?Histologic Type: ?? Invasive carcinoma of no special type (ductal, not ? otherwise specified) ?Histologic Type Comments: ?? with micropapillary features ?Histologic Grade ([place] Histologic Score) ? Glandular (Acinar) / Tubular [...] Lymph Nodes Examined: ?6 ? Number of Goldsmith Nodes Examined: ?5 Pathologic Stage Classification (pTNM, AJCC 8th Edition) ?Primary Tumor (Invasive Carcinoma) (pT): ?pT2 ?Regional Lymph Nodes (pN) ? Category (pN): ?? pN1a Labs: 02/04/21- WBC-6.04 Hgb/Hct-10.5/33.4 MCV-87.7 Plt-162 ANC-4.39 Na-142 K+-43. BUN/Cr-20/1.5 Glucose-121 Ca-8.8 T. Bili-0.2 AST-14 ALT-25 Alk phos-101 Albumin-3.7 TsnT8P-0.0 Ferritin-215 11/08/20- WBC-6.67 Hgb/Hct-10.5/33.7 Plt-197 ANC-5.02 Na-142 [...] ER+/MA+, Her2 IHC neg, LN 2/6, DCIS, lY1pO5o (stage IIA) Treatment: -12/07/2018 left mastectomy and [...] area. Their is a meal site in [place] that would be available to her. She [...] questions/concerns or new symptoms. Ethel Christianson MSN, ADMITTED ATTORNEYS, AOCNP Medical Oncology documented in this encounter Plan of Treatment Upcoming Encounters Date Type Department Care Team (Late st Contact Info) Description 03/21/2024 2:30 PM EDT Office Visit Hematology/Oncology at [address] [phone] Edgar Carreon MD [facility] DR HEMATOLOGY [place] [address] Kadie Gaming APRN [facility] [place] [address] 05/15/2024 3:30 PM EST Office Visit Radiation Oncology at [address] [phone] Patsy Shelton MD [facility] DR [place] [address] documented as of this encounter Visit Diagnoses Diagnosis Breast cancer, stage 2, left Iron deficiency anemia, unspecified iron deficiency anemia type documented in this encounter Care Teams Orthopedic Nurse Relationship Specialty Start Date End Date Navid Avendaño MD [address] [place], [place] [address] PCP - General Family Medicine 01/24/19 documented as of this encounter
--- OUTSIDE RECORDS SUMMARY | 2024-02-29 02:56 | XMS_ITS | Encounter Summary ---
Author Organization [facility] Address [facility] [place] [address] Care Team Providers Care Digital Content Manager Name Role Phone Navid Avendaño MD Primary Care Provider +1 -[phone] Reason for Visit * Reason Comments Medication Refill Encounter Details Date Type Department Care Team (Late st Contact Info) Description 09/02/2022 Refill Hematology/Oncology at [address] [phone] Ethel Christianson, RN Hormone receptor positive malignant [...] 2:30 PM EDT Office Visit Hematology/Oncology at [address] [phone] Edgar Carreon MD [facility] DR [place] [address] Kadie Gaming APRN [facility] [place] [address] 05/15/2024 3:30 PM EST Office Visit Radiation Oncology at [address] [phone] Patsy Shelton MD [facility] [place] [address] documented as of this encounter Visit Diagnoses Diagnosis 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
--- OUTSIDE RECORDS SUMMARY | 2024-02-29 02:56 | XMS_ITS | Encounter Summary ---
Author Organization [facility] Address [facility] [place] [address] Care Team Providers Care [employer] Name Role Phone Navid Avendaño MD Primary Care Provider +1 -[phone] Reason for Visit * Reason Onset Date Comments Prior Authorization 07/30/2022 Encounter Details Date Type Department Care Team (Late Contact Info) Description 07/30/2022 Telephone Hematology [place] [phone] Leigh Acuna Prior Authorization Social History Tobacco [...] Request PA for Dexa Scan. Call to [facility]: [phone] PA is not required. Call Ref #: [id number] Call start time: 2:42pm Call end time : 2:52pm documented in this encounter Plan of Treatment Upcoming Encounters Date Type Department Care Team (Late Contact Info) Description 03/21/2024 2:30 PM EDT Office Visit Hematology/Oncology at [address] [phone] Edgar Carreon MD [facility] HEMATOLOGY [place] [address] Kadie Gaming APRN [facility] [place] [address] 05/15/2024 3:30 PM EST Office Visit Radiation Oncology at [address] [phone] Patsy Shelton MD [facility] [place] [address] documented as of this encounter Visit Diagnoses Not on filedocumented in this encounter Care Teams [employer] Relationship Specialty Start Date End Date Navid Avendaño MD [address] [place] [address] PCP - General Family Medicine 01/24/19 documented as of this encounter
--- OUTSIDE RECORDS SUMMARY | 2024-02-29 02:56 | XMS_ITS | Encounter Summary ---
Author Organization [facility] Address [facility] [place] [address] Care Team Providers Care Manager Of Software Development Name Role Phone Navid Avendaño MD Primary Care Provider +1 [phone] Encounter Details Date Type Department Care Team (Latest Contact Info) Description 05/17/2020 12:31 PM EST - 05/17/2020 11:59 PM EST Hospital Encounter Laboratory [facility] [place] [address] Discharge Disposition: Home Social History Tobacco Use [...] PM EDT Office Visit Hematology/Oncology at [address] [phone] Edgar Carreon MD [facility] HEMATOLOGY [place] [address] Kadie Gaming APRN [facility] [place] [address] 05/15/2024 3:30 PM EST Office Visit Radiation Oncology at [address] [phone] Patsy Shelton MD [facility] [place] [address] documented as of this encounter Procedures Procedure Name Priority Date/Time Associated Diagnosis Comments COVID-19 PCR Routine 05/17/2020 12:00 PM EST documented in this encounter Results * COVID-19 PCR (05/17/2020 12:00 PM EST) SARS-CoV-2 RNA Not Detected Not Detected [facility] Comment: This result should be [...] diagnosis of COVID-19 is performed using the [employer] m SARS-CoV-2 Assay as authorized by the FDA Emergency Use Authorization (EUA). This EUA assay is intended for In-vitro Diagnostic (IVD) use with respiratory specimens such as nasopharyngeal swabs collected from individuals during the acute phase of infection. This assay is performed based on the instructions for use provided by [employer] and additional guidance provided by CDC and FDA. Testing is performed in the [facility] Laboratory within the Department of Pathology and Laboratory Medicine at [facility], certified under the Clinical Laboratory Improvement Amendments [...] fact sheets at the following FDA website: https://www.fda.gov/medical-devices/jausrlxqcsa-awfcffo-8497-yxvtv-15-eilhfnkaq- use-a ytchpozuebjok-wxkczob-owdcwgc/ufjee-erujuirevhj-ogfd SARS-CoV-2 RNA Source RAMP AGENT Swab [facility] Nasopharyngeal swab (specimen) Other / Unknown 05/17/2020 12:00 PM EST 05/18/2020 12:01 AM EST Narrative Resulting Agency Comment Spec In Lab Kelli Renee MD MOLECULAR ORD ERABLES [facility] [place] [id number] documented in this encounter Visit Diagnoses Not on filedocumented in this encounter Care Teams Manager Of Software Development Relationship Specialty Start Date End Date Navid Avendaño MD [address] [place] [address] PCP - General Family Medicine 01/24/19 documented as of this encounter
--- OUTSIDE RECORDS SUMMARY | 2024-02-29 02:56 | XMS_ITS | Encounter Summary ---
Author Organization [facility] Address [facility] [place] [address] Care Team Providers Care Physical Medicine Specialist Name Role Phone Navid Avendaño MD Primary Care Provider [phone] [phone] Reason for Referral * Consultation (Routine) - Closed Specialty Diagnoses / Procedures Referred By Contac t Referred To Contact Diagnoses Anemia, unspecified type Iron deficiency anemia, unspecified iron deficiency anemia type Edgar Carreon MD [facility] [place] [address] Kelli Bedolla MD [address] [place] [address] Referral ID Status Reason Start Date Expiration Date V isits Requested Visits Authorized [id number] Closed Consult, Test & Treat Non PCP 04/09/2020 10/06/2020 1 1 Encounter Details Date Type Department Care Team (Late st Contact Info) Description 04/09/2020 1:00 PM EDT Office Visit Hematology/Oncology at [address] [phone] Edgar Carreon MD [facility] [address] [place] [address] Ethel Christianson RN alf current use of aromatase inhibitor; Hormone receptor [...] with focal micropapillary features.gr3, LVI-, marilynn neg, ER+/DC+, Her2 IHC neg, LN 2/6, DCIS, [id number] (stage IIA) Patient Active Problem List Diagnosis [...] Interval history: Ms. Santizo returns to the [facility] for follow-up of breast cancer. She is currently on letrozole daily which she started on May. Plan placed medication. Myesha developed joint pain, stiffness and numbness tingling in the hands about 2 weeks ago. It does interfere with her daily activity. She started to drop things from her hands.Dr. Avendaño did some work-up and refer her to shuttle inspector who she is going to see in [...] Tamoxifen alone A ??- Outside slide(s) labeled [id number], collection date 11/11/2018. 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 On submitted slides (reviewed) - ER immunoreactivity: Positive (>90% cancer cells with immunostaining) Stain intensity: Intermediate and Strong DC immunoreactivity: Positive (>90% cancer cells with immunostaining) Stain intensity: Strong HER2 IHC - Per report, 1+/Negative B ??- Outside slide(s) labeled [id number], collection date 12/07/2018. 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 - Ductal carcinoma in-situ (DCIS), high grade with comedonecrosis. - See Synoptic report. B - Lymph node, Temple #1, left axillary, excision (4 slides labeled B)- - Metastatic carcinoma to one of two lymph nodes. - The anita metastasis measures 1.9 cm. - Extranodal invasion is present. 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 C - Lymph node, left axilla, excision (3 slides labeled C)- - One benign node. D - Lymph node, Temple #2, left axillary, excision (1 slide labeled D)- - One benign node. E - Lymph node, Temple #3, left axillary, excision (2 slides labeled E)- - Two benign nodes. F - Medial Skin edge, excision (2 slides labeled F) - - Benign skin and subcutis. Specimen ?Procedure: ??Total mastectomy ?Specimen Laterality: ?? Left Tumor ?Histologic Type: ?? Invasive carcinoma of no special type (ductal, not ? otherwise specified) ?Histologic Type Comments: ?? with micropapillary features ?Histologic Grade ([place] Histologic Score) ? Glandular (Acinar) / Tubular [...] Lymph Nodes Examined: ?6 ? Number of Temple Nodes Examined: ?5 Pathologic Stage Classification (pTNM, AJCC 8th Edition) ?Primary Tumor (Invasive Carcinoma) (pT): ?pT2 ?Regional Lymph Nodes (pN) ? Category (pN): ?? pN1a Labs: 04/04/2020 WBC 6, hemoglobin 10.2, platelet count 209, ANC 4.7, haptoglobin 185, iron 37, [id number], transferrin saturation 12%, ferritin 31, BUN 15, [...] with focal micropapillary features.gr3, LVI-, marilynn neg, ER+/DC+, Her2 IHC neg, LN 2/6, DCIS, [id number] (stage IIA) Treatment: -12/07/2018 left mastectomy and [...] arthritis. Meanwhile she will be seen by shuttle inspector as well. I will see her back [...] disease. She is going to see a shuttle inspector in May. We may consider a trial [...] PM EDT Office Visit Hematology/Oncology at [address] [phone] Edgar Carreon MD [facility] [address] [place] [address] Kdaie Gaming APRN [facility] [place] [address] 05/15/2024 3:30 PM EST Office Visit Radiation Oncology at [address] [phone] Patsy Shelton MD [facility] [place] [address] Scheduled Referrals Name Type Priority Associated Diagnoses Orde r Schedule Referral to General Surgery Outpatient Referral Routine Anemia, unspecified type Iron deficiency anemia, unspecified iron deficiency anemia type Ordered: 04/09/2020 documented as of this encounter Visit Diagnoses 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
--- OUTSIDE RECORDS SUMMARY | 2024-02-29 02:56 | XMS_ITS | Encounter Summary ---
Author Organization [facility] Address [facility] [place] [address] Care Team Providers Care Asphalt Coater Name Role Phone Navid Avendaño MD Primary Care Provider [phone] [phone] Reason for Visit * Reason Onset Date Comments Other 04/13/2023 Hot flashes Encounter Details Date Type Department Care Team ([facility] Contact Info) Description 04/13/2023 Telephone Hematology/Oncology at [address] [phone] Penny Chew RN Other (Hot [...] Upcoming Encounters Date Type Department Care Team ([facility] Contact Info) Description 03/21/2024 2:30 PM EDT Office Visit Hematology/Oncology at [address] [phone] Edgar Carreon MD [facility] [place] [address] Kadie Gaming APRN [facility] [place] [address] 05/15/2024 3:30 PM EST Office Visit Radiation Oncology at [address] [phone] Patsy Shelton MD [facility] [place] [address] documented as of this encounter Visit Diagnoses Not on filedocumented in this encounter Care Teams Asphalt Coater Relationship Specialty Start Date End Date Navid Avendaño MD [address] [place], [place] [address] PCP - General Family Medicine 01/24/19 documented as of this encounter
--- OUTSIDE RECORDS SUMMARY | 2024-02-29 02:56 | XMS_ITS | Encounter Summary ---
Author Organization [facility] Address [facility] [place] [address] Care Team Providers Care Chronometer Repairer Name Role Phone Navid Avendaño MD Primary Care Provider +1 [phone] Encounter Details Date Type Department Care Team (Late Contact Info) Description 08/11/2022 Telephone Hematology/Oncology at [address] [phone] Alyssa Hunter Social History Tobacco [...] 08/11/2022 1:03 PM EST I SPOKE TO [facility] REGARDING HER DXA. THEY CALLED THE PATIENT [...] 2:30 PM EDT Office Visit Hematology/Oncology at [address] [phone] Edgar Carreon MD [facility] HEMATOLOGY [place] [address] Kadie Gaming APRN [facility] [place] [address] 05/15/2024 3:30 PM EST Office Visit Radiation Oncology at [address] [phone] Patsy Shelton MD [facility] [place] [address] documented as of this encounter Visit Diagnoses Not on filedocumented in this encounter Care Teams Chronometer Repairer Relationship Specialty Start Date End Date Navid Avendaño MD [address] [place] [address] PCP - General Family Medicine 01/24/19 documented as of this encounter
--- OUTSIDE RECORDS SUMMARY | 2024-02-29 02:56 | XMS_ITS | Encounter Summary ---
[place] [address] Care Team Providers Care Caddy Packer Name Role Phone Navid Avendaño MD Primary Care Provider +1 [phone] Reason for Visit * Reason Comments IV Medication Venofer * Treatment/Therapy Plan Authorization (Routine) - Closed Specialty Diagnoses / Procedures Referred By Contac t Referred To Contact Diagnoses Iron deficiency anemia, unspecified iron deficiency anemia type Ethel Christianson RN Referral ID Status Reason Start Date Expiration Date Visits Re quested Visits Authorized [id number] Closed 11/13/2020 11/13/2021 99 99 Encounter Details Date Type Department Care Team (Late st Contact Info) Description 12/17/2020 1:30 PM EDT Infusion Hematology Oncology at [address] [phone] Iron deficiency anemia, unspecified iron [...] and BSA by Delmis Dewey, [facility]. REACTIONS (DESCRIPTION, TIME, INTERVENTION AND EFFECTIVENESS) [...] PM EDT Office Visit Hematology/Oncology at [address] [phone] Edgar Carreon MD [facility] DR HEMATOLOGY [place] [address] Kadie Gaming APRN [facility] [place] [address] 05/15/2024 3:30 PM EST Office Visit Radiation Oncology at [address] [phone] Patsy Shelton MD [facility] [address] [place] [address] documented as of this encounter Visit Diagnoses Diagnosis Iron deficiency anemia, unspecified iron deficiency anemia type documented in this encounter Administered Medications Inactive Administered Medications - up to 3 most recent administrations Medication Order MAR Action Action Date Dose Rate Site acetaminophen (Tylenol) tablet 151 mg 975 mg, Oral, ONCE, 1 dose, [...] mL/hr documented in this encounter Care Teams Caddy Packer Relationship Specialty Start Date End Date Navid Avendaño MD [address] [place] [address] PCP - General Family Medicine 01/24/19 documented as of this encounter
--- OUTSIDE RECORDS SUMMARY | 2024-02-29 02:56 | XMS_ITS | Encounter Summary ---
Author Organization [facility] Address [facility] [place] [address] Care Team Providers Care Maintenance Plumber Name Role Phone Navid Avendaño MD Primary Care Provider +1 [phone] Encounter Details Date Type Department Care Team (Late Contact Info) Description 04/04/2020 Telephone Hematology/Oncology at [address] [phone] Kendy Fu Social History Tobacco [...] Wednesday. Labs slips have been faxed to [facility] and I asked that Myesha make an appt for labs as walk ins are not permitted at this time. documented in this encounter Plan of Treatment Upcoming Encounters Date Type Department Care Team (Late Contact Info) Description 03/21/2024 2:30 PM EDT Office Visit Hematology/Oncology at [address] [phone] Edgar Carreon MD [facility] HEMATOLOGY [place] [address] Kadie Gaming APRN [facility] [place] [address] 05/15/2024 3:30 PM EST Office Visit Radiation Oncology at [address] [phone] Patsy Shelton MD [facility] [place] [address] documented as of this encounter Visit Diagnoses Not on filedocumented in this encounter Care Teams Maintenance Plumber Relationship Specialty Start Date End Date Navid Avendaño MD [address] [place], [place] [address] PCP - General Family Medicine 01/24/19 documented as of this encounter
--- OUTSIDE RECORDS SUMMARY | 2024-02-29 02:56 | XMS_ITS | Encounter Summary ---
Author Organization [facility] [place] [address] Care Team Providers Care Contract Law Specialist Name Role Phone Navid Avendaño MD Primary Care Provider [phone] [phone] Reason for Visit * Consultation (Routine) - Closed Specialty Diagnoses / Procedures Referred By Moses damian Referred To Contact Dermatology Diagnoses Disorder of the skin and subcutaneous tissue, unspecified Scaly, Non-Healing Lesion in B Preauncular Areas; New Patient-Notes Received Procedures Consult Navid Avendaño MD [address] [place] [address] 1 [place] [address] Santa Jewell MD [address] [place] [id number] Referral ID Status Reason Start Date Expiration Date V isits Requested Visits Authorized [id number] Closed Consult, Test & Treat PCP Updated and/or Approved 10/03/2020 10/03/2021 1 1 Encounter Details Date Type Department Care Team ([facility] Contact Info) Description 01/01/2021 3:30 PM EDT Office Visit Dermatology at [address] [place] [address] Santa Jewell MD [address] [place] [address] Seborrheic keratoses; Inflamed seborrheic keratosis; Personal history [...] to revaluate ISK Santa Jewell MD Dermatology [facility] documented in this encounter Plan of Treatment Upcoming Encounters Date Type Department Care Team (Late st Contact Info) Description 03/21/2024 2:30 PM EDT Office Visit Hematology/Oncology at [address] [phone] Edgar Carreon MD [facility] DR HEMATOLOGY [place] [address] Kadie Gamnig APRN [facility] [place] [address] 05/15/2024 3:30 PM EST Office Visit Radiation Oncology at [address] [phone] Patsy Shelton MD [facility] [place] [address] documented as of this encounter Visit Diagnoses Diagnosis Seborrheic keratoses Inflamed seborrheic keratosis Personal history of skin cancer Personal history of other malignant neoplasm of skin documented in this encounter Care Teams Contract Law Specialist Relationship Specialty Start Date End Date Navid Avendaño MD [address] [facility] [address] [place] [address] [place] [address] PCP - General Family Medicine 01/24/19 documented as of this encounter
--- OUTSIDE RECORDS SUMMARY | 2024-02-29 02:56 | XMS_ITS | Encounter Summary ---
Author Organization [facility] [place] [place] [address] Care Team Providers Care Patch Washer Name Role Phone Navid Avendaño MD Primary Care Provider [phone] [phone] Encounter Details Date Type Department Care Team (Late Contact Info) Description 03/18/2023 Ancillary Procedure [place]iology [place] [address] Navid Avendaño MD [address] [place] [address] Social History Tobacco Use Types [...] PM EDT Office Visit Hematology/Oncology at [address] [phone] Edgar Carreon MD [facility] [place] [address] Kadie Gaming APRN [facility] [place] [address] 05/15/2024 3:30 PM EST Office Visit Radiation Oncology at [address] [phone] Patsy Shelton MD [facility] [place] [address] documented as of this encounter Procedures Procedure Name Priority Date/Time Associated Diagnosis Comments FILM LIBRARY- STORAGE ONLY DXA IMAGES Routine 03/18/2023 12:00 AM EDT documented in this encounter Results * Film Library- Storage Only DXA Images (03/18/2023 12:00 AM EDT) Narrative [facility] - 03/19/2023 1:55 PM EDT This exam is auto-finalizing. It's purpose is for storage only. Navid Avendaño MD IMG FILM LIBRARY ORDERABLES [place], [place] documented in this encounter Visit Diagnoses Not on filedocumented in this encounter Care Teams Patch Washer Relationship Specialty Start Date End Date Navid Avendaño MD [address] [place] [address] PCP - General Family Medicine 01/24/19 documented as of this encounter
--- OUTSIDE RECORDS SUMMARY | 2024-02-29 02:56 | XMS_ITS | Encounter Summary ---
Author Organization [facility] Address [facility] [place] [address] Care Team Providers Care Supervisor Central Supply Name Role Phone Navid Avendaño MD Primary Care Provider [phone] [phone] Reason for Visit * Reason Comments Follow-up Encounter Details Date Type Department Care Team (Late st Contact Info) Description 10/20/2021 2:00 PM EDT Office Visit Radiation Oncology at [address] [phone] Patsy Shelton MD [facility] [place] [address] S/P radiotherapy Social History Tobacco Use Types [...] ROBOTIC performed by Anthony Belle MD at [facility] MAIN OR ? ? PRO LAPAROSCOPY W TOT HYSTERECTUTERUS <=250 GRAM W TUBE/OVARY N/A 03/28/2015 LAPAROSCOPY,TOTAL HYST, UTERUS<250GM, EVER TYBE &/OR OVARY, ROBOTIC ASSIST performed by Anthony Belle MD at [facility] MAIN OR Cataract surg OU. Physical [...] PM EDT Office Visit Hematology/Oncology at [address] [phone] Edgar Carreon MD [facility] DR [place] [address] Kadie Gaming APRN [facility] [place] [address] 05/15/2024 3:30 PM EST Office Visit Radiation Oncology at [address] [phone] Patsy Shelton MD [facility] [place] [address] documented as of this encounter Visit Diagnoses Diagnosis S/P radiotherapy Convalescence following radiotherapy documented in this encounter Care Teams Supervisor Central Supply Relationship Specialty Start Date End Date Navid Avendaño MD [address] [place] [address] [address] [place] [address] PCP - General Family Medicine 01/24/19 documented as of this encounter
--- OUTSIDE RECORDS SUMMARY | 2024-02-29 02:56 | XMS_ITS | Encounter Summary ---
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 Santizo returns to the [facility] for follow-up of breast cancer. [...] Tamoxifen alone A ??- Outside slide(s) labeled [id number], collection date 11/11/2018. 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 On submitted slides (reviewed) - ER immunoreactivity: Positive (>90% cancer cells with immunostaining) Stain intensity: Intermediate and Strong AL immunoreactivity: Positive (>90% cancer cells with immunostaining) Stain intensity: Strong HER2 IHC - Per report, 1+/Negative B ??- Outside slide(s) labeled [id number], collection date 12/07/2018. 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 - Ductal carcinoma in-situ (DCIS), high grade with comedonecrosis. - See Synoptic report. B - Lymph node, [place] #1, left axillary, excision (4 slides labeled B)- - Metastatic carcinoma to one of two lymph nodes. - The anita metastasis measures 1.9 cm. - Extranodal invasion is present. 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 C - Lymph node, left axilla, excision (3 slides labeled C)- - One benign node. D - Lymph node, [place] #2, left axillary, excision (1 slide labeled D)- - One benign node. E - Lymph node, [place] #3, left axillary, excision (2 slides labeled E)- - Two benign nodes. F - Medial Skin edge, excision (2 slides labeled F) - - Benign skin and subcutis. Specimen ?Procedure: ??Total mastectomy ?Specimen Laterality: ?? Left Tumor ?Histologic Type: ?? Invasive carcinoma of no special type (ductal, not ? otherwise specified) ?Histologic Type Comments: ?? with micropapillary features ?Histologic Grade ([facility] Histologic Score) ? Glandular (Acinar) / Tubular [...] Lymph Nodes Examined: ?6 ? Number of [place] Nodes Examined: ?5 Pathologic Stage Classification (pTNM, [...] T. Bili-0.2 AST-14 ALT-25 Alk phos-101 Albumin-3.7 KjbG0K-5.0 Ferritin-215 11/08/20- WBC-6.67 Hgb/Hct-10.5/33.7 Plt-197 ANC-5.02 Na-142 [...] with focal micropapillary features.gr3, LVI-, marilynn neg, ER+/AL+, Her2 IHC neg, LN 2/6, DCIS, [id number] (stage IIA) Treatment: -12/07/2018 left mastectomy and [...] PM EDT Office Visit Hematology/Oncology at [address] [phone] Edgar Lovett MD [facility] [place] [address] Kadie Gaming APRN [facility] [place] [address] 05/15/2024 3:30 PM EST Office Visit Radiation Oncology at [address] [phone] Patsy Shelton MD [facility] [place] [address] documented as of this encounter Visit Diagnoses Diagnosis 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- Primary halfway current use of aromatase inhibitor Use of aromatase inhibitors Asymptomatic menopausal state Asymptomatic postmenopausal status (age-related) (natural) Iron deficiency anemia, unspecified iron deficiency anemia type documented in this encounter Care Teams Furnace Setter Relationship Specialty Start Date End Date Navid Avendaño MD [address] [place] [address] [address] [place] [address] PCP - General Family Medicine 01/24/19 documented as of this encounter
--- OUTSIDE RECORDS SUMMARY | 2024-02-29 02:56 | XMS_ITS | Encounter Summary ---
Author Organization [facility] Address [facility] [place] [place] [address] Care Team Providers Care Motorcycle Subassembly Repairer Name Role Phone Navid Avendaño MD Primary Care Provider +1 [phone] Reason for Visit * Reason Comments Follow-up Encounter Details Date Type Department Care Team (Late st Contact Info) Description 09/28/2022 2:30 PM EDT Office Visit Radiation Oncology at [address] [phone] Patsy Shelton MD [facility] [place] [address] Breast cancer screening by mammogram; S/P radiotherapy [...] ROBOTIC performed by Anthony Belle MD at [facility] MAIN OR ? ? PRO LAPAROSCOPY W TOT HYSTERECTUTERUS <=250 GRAM W TUBE/OVARY N/A 03/28/2015 LAPAROSCOPY,TOTAL HYST, UTERUS<250GM, EVER TYBE &/OR OVARY, ROBOTIC ASSIST performed by Anthony Belle MD at [facility] MAIN OR Cataract surg OU. Physical [...] PM EDT Office Visit Hematology/Oncology at [address] [phone] Edgar Carreon MD [facility] DR HEMATOLOGY [place] [address] Kadie Gaming APRN [facility] [place] [address] 05/15/2024 3:30 PM EST Office Visit Radiation Oncology at [address] [phone] Patsy Shelton MD [facility] DR [place] [address] Scheduled Orders Name Type Priority Associated Diagnoses Orde r Schedule Mammo Screening Cad and Henrique Right Imaging Routine Breast cancer screening by mammogram Expected: 02/26/2023, Expires: 03/31/2024 documented as of this encounter Visit Diagnoses Diagnosis Breast cancer screening by mammogram S/P radiotherapy Convalescence following radiotherapy documented in this encounter Care Teams Motorcycle Subassembly Repairer Relationship Specialty Start Date End Date Navid Avendaño MD [address] [place] [address] [address] [place] [address] PCP - General Family Medicine 01/24/19 documented as of this encounter
--- OUTSIDE RECORDS SUMMARY | 2024-02-29 02:56 | XMS_ITS | Encounter Summary ---
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.gr3, LVI-, marilynn neg, ER+/IN+, Her2 IHC neg, LN 2/6, DCIS, [id number] (stage IIA) Patient Active Problem List Diagnosis [...] Interval history(08/06/21): [facility]. [facility] [employer] [...] stress. Her daughter and grandchild moved to [place] leaving her here alone. Her ex son [...] Tamoxifen alone A ??- Outside slide(s) labeled [id number], collection date 11/11/2018. 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 On submitted slides (reviewed) - ER immunoreactivity: Positive (>90% cancer cells with immunostaining) Stain intensity: Intermediate and Strong IN immunoreactivity: Positive (>90% cancer cells with immunostaining) Stain intensity: Strong HER2 IHC - Per report, 1+/Negative B ??- Outside slide(s) labeled [id number], collection date 12/07/2018. 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 - Ductal carcinoma in-situ (DCIS), high grade with comedonecrosis. - See Synoptic report. B - Lymph node, [place] #1, left axillary, excision (4 slides labeled B)- - Metastatic carcinoma to one of two lymph nodes. - The anita metastasis measures 1.9 cm. - Extranodal invasion is present. 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 C - Lymph node, left axilla, excision (3 slides labeled C)- - One benign node. D - Lymph node, [place] #2, left axillary, excision (1 slide labeled D)- - One benign node. E - Lymph node, [place] #3, left axillary, excision (2 slides labeled [...] Lymph Nodes Examined: ?6 ? Number of [place] Nodes Examined: ?5 Pathologic Stage Classification (pTNM, AJCC 8th Edition) ?Primary Tumor (Invasive Carcinoma) (pT): ?pT2 ?Regional Lymph Nodes (pN) ? Category (pN): ?? pN1a Labs: 02/04/21- WBC-6.04 Hgb/Hct-10.5/33.4 MCV-87.7 Plt-162 ANC-4.39 Na-142 K+-43. BUN/Cr-20/1.5 Glucose-121 Ca-8.8 T. Bili-0.2 AST-14 ALT-25 Alk phos-101 Albumin-3.7 QitV2V-0.0 Ferritin-215 11/08/20- WBC-6.67 Hgb/Hct-10.5/33.7 Plt-197 ANC-5.02 Na-142 [...] with focal micropapillary features.gr3, LVI-, marilynn neg, ER+/IN+, Her2 IHC neg, LN 2/6, DCIS, [id number] (stage IIA) Treatment: -12/07/2018 left mastectomy and [...] area. Their is a meal site in [place] that would be available to her. She [...] questions/concerns or new symptoms. Ethel Christianson MSN, DIRECTOR CARDIAC, AOCNP Medical Oncology documented in this encounter Plan of Treatment Upcoming Encounters Date Type Department Care Team (Late st Contact Info) Description 03/21/2024 2:30 PM EDT Office Visit Hematology/Oncology at [address] [phone] Edgar Carreon MD [facility] DR [place] [address] Kadie Gaming APRN [facility] [place] [address] 05/15/2024 3:30 PM EST Office Visit Radiation Oncology at [address] [phone] Patsy Shelton MD [facility] [place] [address] documented as of this encounter Visit Diagnoses Diagnosis 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
--- OUTSIDE RECORDS SUMMARY | 2024-02-29 02:56 | XMS_ITS | Encounter Summary ---
Author Organization [facility] [place] [address] Care Team Providers Care Desk Manager Name Role Phone Navid Avendaño MD Primary Care Provider +1 [phone] Encounter Details Date Type Department Care Team (Late st Contact Info) Description 11/13/2020 1:00 PM EDT Office Visit Hematology/Oncology at [address] [phone] Ethel Christianson RN Breast cancer, stage 2, [...] this encounter Progress Notes * Ethel Christianson, ANILINE PRESS WORKER - 11/13/2020 1:00 PM EDT Images from the original note were not included. 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.gr3, LVI-, marilynn neg, ER+/W[place]+, Her2 IHC neg, LN 2/6, DCIS, [id number] (stage IIA) Patient Active Problem List Diagnosis [...] Interval history(11/13/20): Ms. Santizo returns to the [facility] for follow-up of breast cancer. She [...] Tamoxifen alone A ??- Outside slide(s) labeled [id number], collection date 11/11/2018. Breast, left, core needle [...] report, 1+/Negative B ??- Outside slide(s) labeled [id number], collection date 12/07/2018. 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 - Ductal carcinoma in-situ (DCIS), high grade with comedonecrosis. - See Synoptic report. B - Lymph node, [place] #1, left axillary, excision (4 slides labeled B)- - Metastatic carcinoma to one of two lymph nodes. - The anita metastasis measures 1.9 cm. - Extranodal invasion is present. 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 C - Lymph node, left axilla, excision (3 slides labeled C)- - One benign node. D - Lymph node, [place] #2, left axillary, excision (1 slide labeled D)- - One benign node. E - Lymph node, [place] #3, left axillary, excision (2 slides labeled E)- - Two benign nodes. F - Medial Skin edge, excision (2 slides labeled F) - - Benign skin and subcutis. Specimen ?Procedure: ??Total mastectomy ?Specimen Laterality: ?? Left Tumor ?Histologic Type: ?? Invasive carcinoma of no special type (ductal, not ? otherwise specified) ?Histologic Type Comments: ?? with micropapillary features ?Histologic Grade ([facility] Histologic Score) ? Glandular (Acinar) / Tubular [...] Lymph Nodes Examined: ?6 ? Number of [place] Nodes Examined: ?5 Pathologic Stage Classification (pTNM, [...] with focal micropapillary features.gr3, LVI-, marilynn neg, ER+/[place]+, Her2 IHC neg, LN 2/6, DCIS, [id number] (stage IIA) Treatment: -12/07/2018 left mastectomy and [...] questions/concerns or new symptoms. Ethel Christianson MSN, ANILINE PRESS WORKER, AOCNP Medical Oncology 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.gr3, LVI-, marilynn neg, ER+/[place]+, Her2 IHC neg, LN 2/6, DCIS, [id number] (stage IIA) Patient Active Problem List Diagnosis [...] Interval history: Ms. Santizo returns to the [facility] for follow-up of breast cancer. She held letrozole for 6 weeks following with no improvement in her stiffness and joint ache. She was seen by election clerk and was referred to a neurologist. Dr. [...] Tamoxifen alone A ??- Outside slide(s) labeled [id number], collection date 11/11/2018. Breast, left, core needle [...] report, 1+/Negative B ??- Outside slide(s) labeled [id number], collection date 12/07/2018. 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 - Ductal carcinoma in-situ (DCIS), high grade with comedonecrosis. - See Synoptic report. B - Lymph node, [place] #1, left axillary, excision (4 slides labeled B)- - Metastatic carcinoma to one of two lymph nodes. - The anita metastasis measures 1.9 cm. - Extranodal invasion is present. 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 C - Lymph node, left axilla, excision (3 slides labeled C)- - One benign node. D - Lymph node, [place] #2, left axillary, excision (1 slide labeled D)- - One benign node. E - Lymph node, [place] #3, left axillary, excision (2 slides labeled [...] Lymph Nodes Examined: ?6 ? Number of [place] Nodes Examined: ?5 Pathologic Stage Classification (pTNM, [...] with focal micropapillary features.gr3, LVI-, marilynn neg, ER+/WY+, Her2 IHC neg, LN 2/6, DCIS, [id number] (stage IIA) Treatment: -12/07/2018 left mastectomy and [...] arthritis. Meanwhile she will be seen by election clerk as well. I will see her back [...] disease. She is going to see a election clerk in May. We may consider a trial [...] PM EDT Office Visit Hematology/Oncology at [address] [phone] Edgar Carreon MD [facility] DR [place] [address] Kadie Gaming APRN [facility] [place] [address] 05/15/2024 3:30 PM EST Office Visit Radiation Oncology at [address] [phone] Patsy Shelton MD [facility] [place] [address] documented as of this encounter Visit Diagnoses Diagnosis Breast cancer, stage 2, left Iron deficiency anemia, unspecified iron deficiency anemia type documented in this encounter Care Teams Desk Manager Relationship Specialty Start Date End Date Navid Avendaño MD [address] [place] [address] [facility] [address] [place] [address] PCP - General Family Medicine 01/24/19 documented as of this encounter
--- OUTSIDE RECORDS SUMMARY | 2024-02-29 02:56 | XMS_ITS | Encounter Summary ---
Author Organization [facility] Address [facility] [place] [place] [address] Care Team Providers Care Senior Ui Ux Developer Name Role Phone Navid Avendaño MD Primary Care Provider +1 [phone] Reason for Visit * Reason Comments Radiation Follow-up Encounter Details Date Type Department Care Team (Late st Contact Info) Description 04/21/2021 2:00 PM EDT Office Visit Radiation Oncology at [address] [phone] Patsy Shelton MD [facility] DR RADIATION [place] [address] S/P radiotherapy Social History Tobacco Use Types [...] w/dominant pattern of micropapillary ca, gr 3, ER+VA+,Her2 IHC neg, s/p mastectomy & SNB, pT2 [...] fibrocystic dz. Sad that daughter moved to [place] for new job. Past Medical History: Diagnosis [...] ROBOTIC performed by Anthony Belle MD at [facility] MAIN OR ? ? PRO LAPAROSCOPY W TOT HYSTERECTUTERUS <=250 GRAM W TUBE/OVARY N/A 03/28/2015 LAPAROSCOPY,TOTAL HYST, UTERUS<250GM, EVER TYBE &/OR OVARY, ROBOTIC ASSIST performed by Anthony Belle MD at [facility] MAIN OR Cataract surg OU. Physical [...] PM EDT Office Visit Hematology/Oncology at [address] [phone] Edgar Carreon MD [facility] DR HEMATOLOGY [place] [address] Kadie Gaming APRN [facility] DR MEDICAL [place] [address] 05/15/2024 3:30 PM EST Office Visit Radiation Oncology at [address] [phone] Patsy Shelton MD [facility] DR RADIATION [place] [address] documented as of this encounter Visit Diagnoses Diagnosis S/P radiotherapy Convalescence following radiotherapy documented in this encounter Care Teams Senior Ui Ux Developer Relationship Specialty Start Date End Date Navid Avendaño MD [address] [place] [address] PCP - General Family Medicine 01/24/19 documented as of this encounter
--- OUTSIDE RECORDS SUMMARY | 2024-02-29 02:56 | XMS_ITS | Encounter Summary ---
Author Organization [facility] Address 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 Santizo returns to the [facility] for follow-up of breast cancer. Overall, [...] Tamoxifen alone A - Outside slide(s) labeled [id number], collection date 11/11/2018. 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 - Ductal carcinoma in-situ (DCIS), high nuclear grade, papillary/micropapillary with necrosis. On submitted slides (reviewed) - ER immunoreactivity: Positive (>90% cancer cells with immunostaining) Stain intensity: Intermediate and Strong NM immunoreactivity: Positive (>90% cancer cells with immunostaining) Stain intensity: Strong HER2 IHC - Per report, 1+/Negative B - Outside slide(s) labeled [id number], collection date 12/07/2018. 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 - Ductal carcinoma in-situ (DCIS), high grade with comedonecrosis. - See Synoptic report. B - Lymph node, [place] #1, left axillary, excision (4 slides labeled B)- - Metastatic carcinoma to one of two lymph nodes. - The anita metastasis measures 1.9 cm. - Extranodal invasion is present. 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 C - Lymph node, left axilla, excision (3 slides labeled C)- - One benign node. D - Lymph node, [place] #2, left axillary, excision (1 slide labeled D)- - One benign node. E - Lymph node, [place] #3, left axillary, excision (2 slides labeled E)- - Two benign nodes. F - Medial Skin edge, excision (2 slides labeled F) - - Benign skin and subcutis. Specimen Procedure: Total mastectomy Specimen Laterality: Left Tumor Histologic Type: Invasive carcinoma of no special type (ductal, not otherwise specified) Histologic Type Comments: with micropapillary features Histologic Grade ([place] Histologic Score) Glandular (Acinar) / Tubular Differentiation: [...] of Lymph Nodes Examined: 6 Number of [place] Nodes Examined: 5 Pathologic Stage Classification (pTNM, [...] T. Bili-0.2 AST-14 ALT-25 Alk phos-101 Albumin-3.7 XpuD0J-4.0 Ferritin-215 11/08/20- WBC-6.67 Hgb/Hct-10.5/33.7 Plt-197 ANC-5.02 Na-142 [...] with focal micropapillary features.gr3, LVI-, marilynn neg, ER+/NM+, Her2 IHC neg, LN 2/6, DCIS, [id number] (stage IIA) Treatment: -12/07/2018 left mastectomy and [...] PM EDT Office Visit Hematology/Oncology at [address] [phone] Edgar Carreon MD [facility] [place] [address] Kadie Gaming APRN [facility] [place] [address] 05/15/2024 3:30 PM EST Office Visit Radiation Oncology at [address] [phone] Patsy Shelton MD [facility] [place] [address] documented as of this encounter Visit Diagnoses Diagnosis 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
--- OUTSIDE RECORDS SUMMARY | 2024-02-29 02:56 | XMS_ITS | Encounter Summary ---
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 Santizo returns to the [facility] for follow-up of breast cancer. She is currently on letrozole daily which she started on May. Plan placed medication. Myesha developed joint pain, stiffness and numbness tingling in the hands about 2 weeks ago. It does interfere with her daily activity. She started to drop things from her hands.Dr. Avendaño did some work-up and refer her to medical education specialist who she is going to see in [...] Tamoxifen alone A ??- Outside slide(s) labeled [id number], collection date 11/11/2018. 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 On submitted slides (reviewed) - ER immunoreactivity: Positive (>90% cancer cells with immunostaining) Stain intensity: Intermediate and Strong [place] immunoreactivity: Positive (>90% cancer cells with immunostaining) Stain intensity: Strong HER2 IHC - Per report, 1+/Negative B ??- Outside slide(s) labeled [id number], collection date 12/07/2018. 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 - Ductal carcinoma in-situ (DCIS), high grade with comedonecrosis. - See Synoptic report. B - Lymph node, [place] #1, left axillary, excision (4 slides labeled B)- - Metastatic carcinoma to one of two lymph nodes. - The anita metastasis measures 1.9 cm. - Extranodal invasion is present. 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 C - Lymph node, left axilla, excision (3 slides labeled C)- - One benign node. D - Lymph node, [place] #2, left axillary, excision (1 slide labeled D)- - One benign node. E - Lymph node, [place] #3, left axillary, excision (2 slides labeled [...] Lymph Nodes Examined: ?6 ? Number of [place] Nodes Examined: ?5 Pathologic Stage Classification (pTNM, AJCC 8th Edition) ?Primary Tumor (Invasive Carcinoma) (pT): ?pT2 ?Regional Lymph Nodes (pN) ? Category (pN): ?? pN1a Labs: 04/04/2020 WBC 6, hemoglobin 10.2, platelet count 209, ANC 4.7, haptoglobin 185, iron 37, [id number], transferrin saturation 12%, ferritin 31, BUN 15, [...] with focal micropapillary features.gr3, LVI-, marilynn neg, ER+/NH+, Her2 IHC neg, LN 2/6, DCIS, [id number] (stage IIA) Treatment: -12/07/2018 left mastectomy and [...] arthritis. Meanwhile she will be seen by medical education specialist as well. I will see her back [...] disease. She is going to see a medical education specialist in May. We may consider a trial [...] with focal micropapillary features.gr3, LVI-, marilynn neg, ER+/NH+, Her2 IHC neg, LN 2/6, DCIS, [id number] (stage IIA) Patient Active Problem List Diagnosis [...] Interval history: Ms. Santizo returns to the [facility] for follow-up of breast cancer. She held letrozole for 6 weeks following with no improvement in her stiffness and joint ache. She was seen by medical education specialist and was referred to a neurologist. Dr. [...] Tamoxifen alone A ??- Outside slide(s) labeled [id number], collection date 11/11/2018. 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 On submitted slides (reviewed) - ER immunoreactivity: Positive (>90% cancer cells with immunostaining) Stain intensity: Intermediate and Strong [place] immunoreactivity: Positive (>90% cancer cells with immunostaining) Stain intensity: Strong HER2 IHC - Per report, 1+/Negative B ??- Outside slide(s) labeled [id number], collection date 12/07/2018. 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 - Ductal carcinoma in-situ (DCIS), high grade with comedonecrosis. - See Synoptic report. B - Lymph node, [place] #1, left axillary, excision (4 slides labeled B)- - Metastatic carcinoma to one of two lymph nodes. - The anita metastasis measures 1.9 cm. - Extranodal invasion is present. 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 C - Lymph node, left axilla, excision (3 slides labeled C)- - One benign node. D - Lymph node, [place] #2, left axillary, excision (1 slide labeled D)- - One benign node. E - Lymph node, [place] #3, left axillary, excision (2 slides labeled E)- - Two benign nodes. F - Medial Skin edge, excision (2 slides labeled F) - - Benign skin and subcutis. Specimen ?Procedure: ??Total mastectomy ?Specimen Laterality: ?? Left Tumor ?Histologic Type: ?? Invasive carcinoma of no special type (ductal, not ? otherwise specified) ?Histologic Type Comments: ?? with micropapillary features ?Histologic Grade ([place] Histologic Score) ? Glandular (Acinar) / Tubular [...] Lymph Nodes Examined: ?6 ? Number of [place] Nodes Examined: ?5 Pathologic Stage Classification (pTNM, AJCC 8th Edition) ?Primary Tumor (Invasive Carcinoma) (pT): ?pT2 ?Regional Lymph Nodes (pN) ? Category (pN): ?? pN1a Labs: 04/04/2020 WBC 6, hemoglobin 10.2, platelet count 209, ANC 4.7, haptoglobin 185, iron 37, [id number], transferrin saturation 12%, ferritin 31, BUN 15, [...] with focal micropapillary features.gr3, LVI-, marilynn neg, ER+/NH+, Her2 IHC neg, LN 2/6, DCIS, [id number] (stage IIA) Treatment: -12/07/2018 left mastectomy and [...] arthritis. Meanwhile she will be seen by medical education specialist as well. I will see her back [...] disease. She is going to see a medical education specialist in May. We may consider a trial [...] PM EDT Office Visit Hematology/Oncology at [address] [phone] Edgar Carreon MD [facility] [place] [address] Kadie Gaming APRN [facility] [address] 05/15/2024 3:30 PM EST Office Visit Radiation Oncology at [address] [phone] Patsy Shelton MD [facility] [place] [address] documented as of this encounter Visit Diagnoses Diagnosis Breast cancer, stage 2, left Anemia, unspecified type alf current use of aromatase inhibitor Use of aromatase inhibitors documented in this encounter Care Teams Strap Machine Operator Automatic Relationship Specialty Start Date End Date Navid Avendaño MD [address] [place] [address] PCP - General Family Medicine 01/24/19 documented as of this encounter
--- OUTSIDE RECORDS SUMMARY | 2024-02-29 02:56 | XMS_ITS | Encounter Summary ---
[place] [address] Care Team Providers Care Net Trainer Name Role Phone Navid Avendaño MD Primary Care Provider +1 [phone] Reason for Visit * Reason Onset Date Comments Prior Authorization 03/29/2023 Encounter Details Date Type Department Care Team (Late Contact Info) Description 03/29/2023 Telephone Hematology [place] [phone] Leigh Acuna Prior Authorization Social History Tobacco [...] 3:54 PM EDT Procedure Prior Authorization Procedure/Cpt: 86992 MRI Bilateral breast Rationale for request: R92.2 Health plan: Corina Reina Authorizing account development representative name: as above Faxed to health plan on: 03/29/23 Health plan decision: [place] not required Authorization number: Effective Date: Facility: documented in this encounter Plan of Treatment Upcoming Encounters Date Type Department Care Team (Late Contact Info) Description 03/21/2024 2:30 PM EDT Office Visit Hematology/Oncology at [address] [phone] Edgar Carreon MD [facility] [address] [place] [address] Kadie Gaming APRN [facility] [place] [address] 05/15/2024 3:30 PM EST Office Visit Radiation Oncology at [address] [phone] Patsy Shelton MD [facility] [place] [address] documented as of this encounter Visit Diagnoses Not on filedocumented in this encounter Care Teams Net Trainer Relationship Specialty Start Date End Date Navid Avendaño MD [address] [place] [address] PCP - General Family Medicine 01/24/19 documented as of this encounter
--- OUTSIDE RECORDS SUMMARY | 2024-02-29 02:56 | XMS_ITS | Encounter Summary ---
Author Organization [facility] Address [facility] [place] [place] [address] Care Team Providers Care Product Grader Name Role Phone Navid Avendaño MD Primary Care Provider +1 [phone] Reason for Visit * Reason Onset Date Comments Medication Refill 06/24/2023 Encounter Details Date Type Department Care Team (Late Contact Info) Description 06/24/2023 Refill Hematology/Oncology at [address] [phone] Edgar Carreon MD [facility] HEMATOLOGY [place] [address] 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 [...] PM EDT Office Visit Hematology/Oncology at [address] [phone] Edgar Carreon MD [facility] HEMATOLOGY [place] [address] Kadie Gaming APRN [facility] [place] [address] 05/15/2024 3:30 PM EST Office Visit Radiation Oncology at [address] [phone] Patsy Shelton MD [facility] [place] [address] documented as of this encounter Visit Diagnoses Diagnosis 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
--- OUTSIDE RECORDS SUMMARY | 2024-02-29 02:56 | XMS_ITS | Encounter Summary ---
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 [...] Interval history(08/17/23): Ms. Santizo returns to the [facility] for follow-up of breast cancer. Overall, [...] Tamoxifen alone A - Outside slide(s) labeled [id number], collection date 11/11/2018. 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 - Ductal carcinoma in-situ (DCIS), high nuclear grade, papillary/micropapillary with necrosis. On submitted slides (reviewed) - ER immunoreactivity: Positive (>90% cancer cells with immunostaining) Stain intensity: Intermediate and Strong [place] immunoreactivity: Positive (>90% cancer cells with immunostaining) Stain intensity: Strong HER2 IHC - Per report, 1+/Negative B - Outside slide(s) labeled [id number], collection date 12/07/2018. 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 - Ductal carcinoma in-situ (DCIS), high grade with comedonecrosis. - See Synoptic report. B - Lymph node, [place] #1, left axillary, excision (4 slides labeled B)- - Metastatic carcinoma to one of two lymph nodes. - The anita metastasis measures 1.9 cm. - Extranodal invasion is present. 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 C - Lymph node, left axilla, excision (3 slides labeled C)- - One benign node. D - Lymph node, [place] #2, left axillary, excision (1 slide labeled D)- - One benign node. E - Lymph node, [place] #3, left axillary, excision (2 slides labeled E)- - Two benign nodes. F - Medial Skin edge, excision (2 slides labeled F) - - Benign skin and subcutis. Specimen Procedure: Total mastectomy Specimen Laterality: Left Tumor Histologic Type: Invasive carcinoma of no special type (ductal, not otherwise specified) Histologic Type Comments: with micropapillary features Histologic Grade ([place] Histologic Score) Glandular (Acinar) / Tubular Differentiation: [...] of Lymph Nodes Examined: 6 Number of [place] Nodes Examined: 5 Pathologic Stage Classification (pTNM, [...] T. Bili-0.2 AST-14 ALT-25 Alk phos-101 Albumin-3.7 VihD1T-7.0 Ferritin-215 11/08/20- WBC-6.67 Hgb/Hct-10.5/33.7 Plt-197 ANC-5.02 Na-142 [...] with focal micropapillary features.gr3, LVI-, marilynn neg, ER+/[place]+, Her2 IHC neg, LN 2/6, DCIS, yZ9dD6f (stage IIA) Treatment: -12/07/2018 left mastectomy and [...] PM EDT Office Visit Hematology/Oncology at [address] [phone] Edgar Carreon MD [facility] DR [place] [address] Kadie Gaming APRN [facility] [place] [address] 05/15/2024 3:30 PM EST Office Visit Radiation Oncology at [address] [phone] Patsy Shelton MD [facility] [place] [address] Scheduled Orders Name Type Priority Associated Diagnoses [...] 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
--- OUTSIDE RECORDS SUMMARY | 2024-02-29 02:57 | XMS_ITS | Encounter Summary ---
Author Organization [facility] Address [facility] [place] [place] [address] Care Team Providers Care Director Of Global Sales Name Role Phone Navid Avendaño MD Primary Care Provider [phone] [phone] Reason for Visit * Reason Comments Radiation Follow-up Encounter Details Date Type Department Care Team (Late st Contact Info) Description 06/26/2019 4:00 PM EST Office Visit Radiation Oncology at [address] [phone] Patsy Shelton MD [facility] [place] [address] 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 [...] Please take requisition for blood work to [facility] to check kidney function. If you do not hear from meby tomorrow @ noon, please call [phone] to ask if ok to resume metformin. [...] w/dominant pattern of micropapillary ca, gr 3, ER+NM+, Her2 IHC neg, s/p mastectomy & SNB, [...] ROBOTIC performed by Anthony Belle MD at [facility] MAIN OR ? ? PRO LAPAROSCOPY W TOT HYSTERECTUTERUS <=250 GRAM W TUBE/OVARY N/A 03/28/2015 LAPAROSCOPY,TOTAL HYST, UTERUS<250GM, EVER TYBE &/OR OVARY, ROBOTIC ASSIST performed by Anthony Belle MD at [facility] MAIN OR Cataract surg OU. 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
--- OUTSIDE RECORDS SUMMARY | 2024-02-29 02:57 | XMS_ITS | Encounter Summary ---
Author Organization [facility] [place] [address] Care Team Providers Care Loader Magazine Grinder Name Role Phone Maya Burden MD Primary Care Provider [phone] Encounter Details Date Type Department Care Team (Latest Contact Info) Description 12/21/2018 3:33 PM EDT - 12/21/2018 11:59 PM EDT Hospital [place] [address] Discharge Disposition: Home Social History Tobacco Use [...] PM EDT Office Visit Hematology/Oncology at [address] [phone] Edgar Carreon MD [facility] DR HEMATOLOGY [place] [address] Kadie Gaming APRN [facility] [place] [address] 05/15/2024 3:30 PM EST Office Visit Radiation Oncology at [address] [phone] Patsy Shelton MD [facility] [place] [address] documented as of this encounter Procedures Procedure Name Priority Date/Time Associated Diagnosis Comments SURGICAL PATHOLOGY REPORT Routine 12/21/2018 3:33 PM EDT documented in this encounter Results * Surgical Pathology Report (12/21/2018 3:33 PM EDT) Final Diagnosis [id number] ? Location: [facility] The signing pathologist has (i) examined the relevant preparation(s) for the specimen(s) and (ii) rendered or confirmed the diagnosis(es). . ?Surgical Pathology DIAGNOSIS CONSULTATION CASE A ??- Outside slide(s) labeled [id number], collection date 11/11/2018. Breast, left, core needle [...] report, 1+/Negative B ??- Outside slide(s) labeled [id number], collection date 12/07/2018. 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 - Ductal carcinoma in-situ (DCIS), high grade with comedonecrosis. - See Synoptic report. B - Lymph node, [place] #1, left axillary, excision (4 slides labeled B)- - Metastatic carcinoma to one of two lymph nodes. - The anita metastasis measures 1.9 cm. - Extranodal invasion is present. 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 C - Lymph node, left axilla, excision (3 slides labeled C)- - One benign node. D - Lymph node, [place] #2, left axillary, excision (1 slide labeled D)- - One benign node. E - Lymph node, [place] #3, left axillary, excision (2 slides labeled [...] ?? with micropapillary features ? Histologic Grade ([place] Histologic Score) ?Glandular (Acinar) / Tubular Differentiation: [...] of Lymph Nodes Examined: ?6 ?Number of [place] Nodes Examined: ?5 Pathologic Stage Classification (pTNM, AJCC 8th Edition) ? Primary Tumor (Invasive Carcinoma) (pT): ?pT2 ? Regional Lymph Nodes (pN) ?Category (pN): ?? pN1a CAP eCC August 2017 Agile Release Electronically signed by: ??Taylor Alejandro DO Verified: ??12/26/2018 ?Pathologist Performed at: ??-[facility] Dept. of Pathology, [place], [place] CLINICAL INFORMATION Specimen Submitted: CONSULTATION CASE A - 6 slide(s) labeled [id number], collection date 11/11/2018. B - 34 slide(s) labeled [id number], collection date 12/07/2018. [id number] Report to: [facility] Surgical Pathology Department [facility], [place], [address]nd Floor [address] [place], [place] ??[address] . SPECIMEN PROCESSING [facility] ([facility]) pathology slide(s) are reviewed. ??Refer to Diagnosis and Specimen Submitted for specific case information. For the full text of the [facility] ([facility]) report(s) please refer to Non-DH Documentation Pathology in the electronic health record (eDH). 12/26/2018 1:31 PM EDT [facility] Consult Case 12/21/2018 3:33 PM EDT 12/21/2018 3:33 PM EDT Consult Case 12/21/2018 3:33 PM EDT 12/21/2018 3:33 PM EDT Edgar Carreon MD PATHOLOGY/CYTOLOGY O RDERABLES Performing Organization Address City/State/[facility] Co de Phone Number [facility] [place] [address] documented in this encounter Visit Diagnoses Not on filedocumented in this encounter Care Teams Loader Magazine Grinder Relationship Specialty Start Date End Date Maya Burden MD [address] [place] [phone] PCP - General 05/27/10 01/23/19 documented as of this encounter
--- OUTSIDE RECORDS SUMMARY | 2024-02-29 02:57 | XMS_ITS | Encounter Summary ---
Author Organization [facility] [place] [address] Care Team Providers Care Laborer Aquatic Life Name Role Phone Navid Avendaño MD Primary Care Provider [phone] Reason for Visit * Reason Onset Date Comments Questions 03/15/2019 Question re upco shakila appointment Encounter Details Date Type Department Care Team (Late st Contact Info) Description 03/15/2019 Telephone Hematology/Oncology at [address] [phone] Candice Lozano, RN Questions (Question [...] Docetaxel 03/14/19 and is currently inpatient at [facility]. Geovanna is inquiring what next steps are. 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 It is unknown how long she will be inpatient. The racing secretary for Dr. Carreon is working on a follow up appointment for the patient to see Dr. Carreon and is aware to call Geovanna who will be bringing Myesha to the appointment. Outcome of call: Beaver will call Geovanna with appointment date and time. Geovanna verbalizes understanding and has no further questions. Dr. Carreon is updated with this note. documented in this encounter Plan of Treatment Upcoming Encounters Date Type Department Care Team (Late st Contact Info) Description 03/21/2024 2:30 PM EDT Office Visit Hematology/Oncology at [address] [phone] Edgar Carreon MD [facility] [address] [place] [address] Kadie Gaming APRN [facility] [place] [address] 05/15/2024 3:30 PM EST Office Visit Radiation Oncology at [address] [phone] Patsy Shelton MD [facility] [place] [address] documented as of this encounter Visit Diagnoses Not on filedocumented in this encounter Care Teams Laborer Aquatic Life Relationship Specialty Start Date End Date Navid Avendaño MD [address] [place] [address] PCP - General Family Medicine 01/24/19 documented as of this encounter
--- OUTSIDE RECORDS SUMMARY | 2024-02-29 02:57 | XMS_ITS | Encounter Summary ---
Author Organization [facility] Address [facility] [place] [address] Care Team Providers Care Chief Unit Forester Name Role Phone Maya Burden MD Primary Care Provider [phone] Encounter Details Date Type Department Care Team (Late st Contact Info) Description 03/28/2015 3:12 PM EDT Anesthesia [place] [address] Ibrahima Burris MD [facility] [place] [address] Gale Armendariz MD [facility] [place] [address] Anesthesia Record Procedure Summary Procedure Name Responsible [...] 1515; metacarpal vein left (top of hand); [id number] catheter system; 18 gauge; [place]; 03/29/15; 1200 [...] discussed with patient. Plan discussed with attending. [facility] Assessment: documented in this encounter Plan of Treatment Upcoming Encounters Date Type Department Care Team (Late st Contact Info) Description 03/21/2024 2:30 PM EDT Office Visit Hematology/Oncology at [address] [phone] Edgar Carreon MD [facility] [place] [address] Kadie Gaming APRN [facility] [place] [address] 05/15/2024 3:30 PM EST Office Visit Radiation Oncology at [address] [phone] Patsy Shelton MD [facility] [place] [address] documented as of this encounter Visit Diagnoses [...] mg documented in this encounter Care Teams Chief Unit Forester Relationship Specialty Start Date End Date Maya Burden MD [address] [place] [address] PCP - General 05/27/10 01/23/19 documented as of this encounter
--- OUTSIDE RECORDS SUMMARY | 2024-02-29 02:57 | XMS_ITS | Encounter Summary ---
Author Organization [facility] [place] [address] Care Team Providers Care Repairer Wood Furniture Name Role Phone Navid Avendaño MD Primary Care Provider [phone] [phone] Encounter Details Date Type Department Care Team (Late st Contact Info) Description 06/27/2019 Telephone Radiation Oncology at [address] [phone] Celeste Flynn RN Social History [...] PM EDT Office Visit Hematology/Oncology at [address] [phone] Edgar Carreon MD [facility] DR [place]AT[place] [address] Kadie Gaming APRN [facility] [place] [address] 05/15/2024 3:30 PM EST Office Visit Radiation Oncology at [address] [phone] Patsy Shelton MD [facility] [place] [address] documented as of this encounter Visit Diagnoses Not on filedocumented in this encounter Care Teams Repairer Wood Furniture Relationship Specialty Start Date End Date Navid Avendaño MD [address] [place] [address] [address] [place] [address] PCP - General Family Medicine 01/24/19 documented as of this encounter
--- OUTSIDE RECORDS SUMMARY | 2024-02-29 02:57 | XMS_ITS | Encounter Summary ---
Author Organization [facility] [place] [address] Care Team Providers Care Assistant Plant Control Operator Name Role Phone Navid Avendaño MD Primary Care Provider [phone] [phone] Encounter Details Date Type Department Care Team (Late st Contact Info) Description 03/14/2019 10:30 AM EDT Office Visit Hematology/Oncology at [address] [phone] Ivana Rossi APRN [address] [place] [address] Breast cancer, stage 2, left Social [...] this encounter Progress Notes * Ivana Rossi, SLIME PLANT OPERATOR - 03/14/2019 10:30 AM EDT Subjective: Patient ID: Myesha Santizo is a 73 y.o. female. 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 Patientwas transferred to [facility] by ambulance. Her daughter who had left, was called and informed. Patient will return for OV with MD, then be referred for radiation therapy. Ivana Rossi, MSN, SLIME PLANT OPERATOR, AOCNP documented in this encounter Plan of Treatment Upcoming Encounters Date Type Department Care Team (Late st Contact Info) Description 03/21/2024 2:30 PM EDT Office Visit Hematology/Oncology at [address] [phone] Edgar Carreon MD [facility] DR [place] [address] Kadie Gaming APRN [facility] [place] [address] 05/15/2024 3:30 PM EST Office Visit Radiation Oncology at [address] [phone] Patsy Shelton MD [facility] [place] [address] documented as of this encounter Visit Diagnoses Diagnosis Breast cancer, stage 2, left documented in this encounter Care Teams Assistant Plant Control Operator Relationship Specialty Start Date End Date Navid Avendaño MD [address] [place] [address] [address] [place] [address] PCP - General Family Medicine 01/24/19 documented as of this encounter
--- OUTSIDE RECORDS SUMMARY | 2024-02-29 02:57 | XMS_ITS | Encounter Summary ---
Author Organization [facility] [place] [place] [address] Care Team Providers Care Pinion Sorter Name Role Phone Navid Avendaño MD Primary Care Provider [phone] [phone] Reason for Visit * Reason Onset Date Comments Other 03/02/2019 Encounter Details Date Type Department Care Team (Late st Contact Info) Description 03/02/2019 Telephone Hematology/Oncology at [address] [phone] Penny Chew RN Other Social [...] Miscellaneous Notes * Telephone Encounter - Penny Chew, RN - 03/02/2019 10:50 AM EDT Pt called and wanted to make sure it was OK for her to paint her baseboards with latex paint outside. I told her fine she is in well ventilated area so no issues. She also asks if she can have ultra sound for possible hernia. I told her that was fine also. Monika Rossi GLOBAL COORDINATOR updated and if she wants pt to [...] told her I would let Monika Rossi GLOBAL COORDINATOR know all this. documented in this encounter Plan of Treatment Upcoming Encounters Date Type Department Care Team (Late st Contact Info) Description 03/21/2024 2:30 PM EDT Office Visit Hematology/Oncology at [address] [phone] Edgar Carreon MD [facility] [place] [address] Kadie Gaming APRN [facility] [place] [address] 05/15/2024 3:30 PM EST Office Visit Radiation Oncology at [address] [phone] Patsy Shelton MD [facility] [place] [address] documented as of this encounter Visit Diagnoses Not on filedocumented in this encounter Care Teams Pinion Sorter Relationship Specialty Start Date End Date Navid Avendaño MD [address] [place] [address] PCP - General Family Medicine 01/24/19 documented as of this encounter
--- OUTSIDE RECORDS SUMMARY | 2024-02-29 02:57 | XMS_ITS | Encounter Summary ---
Author Organization [facility] Address [facility] [place] [address] Care Team Providers Care Leasing Assistant Name Role Phone Navid Avendaño MD Primary Care Provider +1 [phone] Encounter Details Date Type Department Care Team (Late st Contact Info) Description 02/21/2019 Notes Only Hematology/Oncology at [address] [phone] Stephanie Stinson MSW OFFICE OF CARE MANAGEMENT [...] herself. If she needs help with rides [facility] will arrange this. Work/Finances/Insurance: Pt is retired. She has Ret[employer]U for insurance. Advance Directives: Pt thinks she [...] at this time. Plan: Informed pt of [employer] [employer] availability and will follow for support and resources. documented in this encounter Plan of Treatment Upcoming Encounters Date Type Department Care Team (Late st Contact Info) Description 03/21/2024 2:30 PM EDT Office Visit Hematology/Oncology at [address] [phone] Edgar Carreon MD [facility] DR [place] [address] Kadie Gaming APRN [facility] [place] [address] 05/15/2024 3:30 PM EST Office Visit Radiation Oncology at [address] [phone] Patsy Shelton MD [facility] [place] [address] documented as of this encounter Visit Diagnoses Not on filedocumented in this encounter Care Teams Leasing Assistant Relationship Specialty Start Date End Date Navid Avendaño MD [address] [place] [address] [address] [place] [address] PCP - General Family Medicine 01/24/19 documented as of this encounter
--- OUTSIDE RECORDS SUMMARY | 2024-02-29 02:57 | XMS_ITS | Encounter Summary ---
Author Organization [facility] Address [facility] [place] [place] [address] Care Team Providers Care Environmental Communications Specialist Name Role Phone Navid Avendaño MD Primary Care Provider +1 [phone] Encounter Details Date Type Department Care Team (Late st Contact Info) Description 02/07/2019 Telephone Radiation Oncology at [address] [phone] Tram Grimes Social History Tobacco Use Types [...] PM EDT Office Visit Hematology/Oncology at [address] [phone] Edgar Carreon MD [facility] DR [place] [address] Kadie Gaming APRN [facility] [place] [address] 05/15/2024 3:30 PM EST Office Visit Radiation Oncology at [address] [phone] Patsy Shelton MD [facility] [place] [address] documented as of this encounter Visit Diagnoses Not on filedocumented in this encounter Care Teams Environmental Communications Specialist Relationship Specialty Start Date End Date Navid Avendaño MD [address] [place] [address] PCP - General Family Medicine 01/24/19 documented as of this encounter
--- OUTSIDE RECORDS SUMMARY | 2024-02-29 02:57 | XMS_ITS | Encounter Summary ---
Author Organization [facility] Address [facility] [place] [place] [address] Care Team Providers Care Rn Tele Name Role Phone Navid Avendaño MD Primary Care Provider +1 [phone] Encounter Details Date Type Department Care Team ( Contact Info) Description 03/14/2019 Notes Only Hematology/Oncology at [address] [phone] Edgar Carreon MD [facility] DR [place] [address] Social History Tobacco Use Types Packs/Day Years [...] PM EDT Office Visit Hematology/Oncology at [address] [phone] Edgar Carreon MD [facility] [place] [address] Kadie Gaming APRN [facility] [place] [address] 05/15/2024 3:30 PM EST Office Visit Radiation Oncology at [address] [phone] Patsy Shelton MD [facility] [address] documented as of this encounter Visit Diagnoses Not on filedocumented in this encounter Care Teams Rn Tele Relationship Specialty Start Date End Date Navid Avendaño MD [address] [place], [place] [address] PCP - General Family Medicine 01/24/19 documented as of this encounter
--- OUTSIDE RECORDS SUMMARY | 2024-02-29 02:57 | XMS_ITS | Encounter Summary ---
Author Organization [facility] [place] [address] Care Team Providers Care Industrial Education Instructor Name Role Phone Navid Avendaño MD Primary Care Provider +1 [phone] Reason for Visit * Reason Onset Date Comments Results 07/04/2019 Encounter Details Date Type Department Care Team (Late Contact Info) Description 07/04/2019 Telephone Hematology/Oncology at [address] [phone] Patel Berumen, BRANDON Results Social [...] PM EDT Office Visit Hematology/Oncology at [address] [phone] Edgar Carreon MD [facility] [place] [address] Kadie Gaming APRN [facility] [place] [place] [address] 05/15/2024 3:30 PM EST Office Visit Radiation Oncology at [address] [phone] Patsy Shelton MD [facility] [place] [address] documented as of this encounter Visit Diagnoses Not on filedocumented in this encounter Care Teams Industrial Education Instructor Relationship Specialty Start Date End Date Navid Avendaño MD [address] [place] [address] [address] [place] [address] PCP - General Family Medicine 01/24/19 documented as of this encounter
--- OUTSIDE RECORDS SUMMARY | 2024-02-29 02:57 | XMS_ITS | Encounter Summary ---
Author Organization [facility] Address [facility] [place] [address] Care Team Providers Care Control And Recovery Combat Rescue Name Role Phone Navid Avendaño MD Primary Care Provider +1 -[phone] Reason for Referral * Physical Therapy (Routine) - Specialty Diagnoses / Procedures Referred By Moses damian Referred To Contact Physical Therapy Diagnoses Malignant neoplasm of lower-inner quadrant of left female breast, unspecified estrogen receptor status Patsy Shelton MD [facility] [place] [address] Referral ID Status Reason Start Date Expiration Date V isits Requested Visits Authorized [id number] Evaluate and Treat Non DH PCP 03/21/2019 [...] CONSULT CONTINUING PRG RADIATION MANAGEMENT, 5 TREATMENTS [address] Patsy Shelton MD [facility] [place] [address] [facility] Rad Onc Office [address] [place] [phone] Referral ID Status Reason Start Date Expiration Date V isits Requested Visits Authorized [id number] Closed Consult, Test & Treat 03/20/2019 03/19/2020 1 1 Reason for Visit * Reason Comments Radiation Consult * Consultation (Routine) - Closed Specialty Diagnoses / Procedures Referred By Contac t Referred To Contact Radiation Oncology Diagnoses Breast cancer, stage 2, left Edgar Carreon MD [facility] DR [place] [address] [facility] Rad Onc Treatment [address] [place] [phone] Referral ID Status Reason Start Date Expiration Date V isits Requested Visits Authorized [id number] Closed Consult, Test & Treat 02/03/2019 02/03/2020 1 1 Encounter Details Date Type Department Care Team (Late st Contact Info) Description 03/20/2019 10:00 AM EDT Office Visit Radiation Oncology at [address] [phone] Patsy Shelton MD [facility] [place] [address] Malignant neoplasm of lower-inner quadrant of left [...] friends. Barriers to treatment: none . Referrals/Interventions: MEAT PASSER per routine RADIATION SPECIFIC TEACHING: NCI Radiation [...] core bx L breast. Path: IDC, DCIS, ER+AZ+, Her2 IHC neg. 11/22/[address] [...] ROBOTIC performed by Anthony Belle MD at [facility] MAIN OR ? ? PRO LAPAROSCOPY W TOT HYSTERECTUTERUS <=250 GRAM W TUBE/OVARY N/A 03/28/2015 LAPAROSCOPY,TOTAL HYST, UTERUS<250GM, EVER TYBE &/OR OVARY, ROBOTIC ASSIST performed by Anthony Belle MD at [facility] MAIN OR Cataract surg OU Your [...] w/dominant pattern of micropapillary ca, gr 3, ER+AZ+, Her2 IHC neg, s/p mastectomy & SNB, [...] extremity turns pink or starts to swell. Late/keno terminal operator side effects of xrt discussed include: Treated [...] be referred to Andrei Carrillo PT in [facility]. 25 mins of 40 min face to [...] PM EDT Office Visit Hematology/Oncology at [address] [phone] Edgar Carreon MD [facility] DR [place] [address] Kadie Gaming APRN [facility] [place] [address] 05/15/2024 3:30 PM EST Office Visit Radiation Oncology at [address] [phone] Patsy Shelton MD [facility] [place] [address] Scheduled Orders Name Type Priority Associated Diagnoses [...] status documented in this encounter Care Teams Control And Recovery Combat Rescue Relationship Specialty Start Date End Date Navid Avendaño MD [address] [place] [address] [address] [place] [address] PCP - General Family Medicine 01/24/19 documented as of this encounter
--- OUTSIDE RECORDS SUMMARY | 2024-02-29 02:57 | XMS_ITS | Encounter Summary ---
Author Organization [facility] [place] [address] Care Team Providers Care Acoustics Teacher Name Role Phone Navid Avendaño MD Primary Care Provider +1 -[phone] Encounter Details Date Type Department Care Team (Late st Contact Info) Description 02/21/2019 10:30 AM EDT Office Visit Hematology/Oncology at [address] [phone] Ivana Rossi APRN [address] [place] [address] Endometrial adenocarcinoma Social History Tobacco Use [...] with focal micropapillary features.gr3, LVI-, marilynn neg, ER+/ND+, Her2 IHC neg, LN 2/6, DCIS, [id number] (stage IIA) HPI: Myesha Burdicksis referred by [...] PM EDT Office Visit Hematology/Oncology at [address] [phone] Edgar Carreon MD [facility] DR HEMATOLOGY [place] [address] Kadie Gaming APRN [facility] [place] [address] 05/15/2024 3:30 PM EST Office Visit Radiation Oncology at [address] [phone] Patsy Shelton MD [facility] [place] [address] documented as of this encounter Visit Diagnoses Diagnosis Endometrial adenocarcinoma Malignant neoplasm of corpus uteri, except isthmus documented in this encounter Care Teams Acoustics Teacher Relationship Specialty Start Date End Date Navid Avednaño MD [address] [place] [address] PCP - General Family Medicine 01/24/19 documented as of this encounter
--- OUTSIDE RECORDS SUMMARY | 2024-02-29 02:57 | XMS_ITS | Encounter Summary ---
Author Organization [facility] [place] [address] Care Team Providers Care Photofinishing Laboratory Worker Name Role Phone Navid Avendaño MD Primary Care Provider +1 -[phone] Encounter Details Date Type Department Care Team (Late st Contact Info) Description 03/15/2019 Orders Only [place] [address] Edgar Carreon MD [facility] DR [place] [address] Social History Tobacco Use Types Packs/Day Years [...] PM EDT Office Visit Hematology/Oncology at [address] [phone] Edgar Carreon MD [facility] DR [place] [address] Kadie Gaming APRN [facility] [place] [address] 05/15/2024 3:30 PM EST Office Visit Radiation Oncology at [address] [phone] Patsy Shelton MD [facility] [place] [address] documented as of this encounter Visit Diagnoses Not on filedocumented in this encounter Care Teams Photofinishing Laboratory Worker Relationship Specialty Start Date End Date Navid Avendaño MD [address] [place], [place] [address] PCP - General Family Medicine 01/24/19 documented as of this encounter
--- OUTSIDE RECORDS SUMMARY | 2024-02-29 02:57 | XMS_ITS | Encounter Summary ---
Author Organization [facility] [place] [address] Care Team Providers Care Flight Agent Name Role Phone Navid Avendaño MD Primary Care Provider +1 -[phone] Reason for Visit * Reason Onset Date Comments Medication Problem 05/31/2019 [facility] Encounter Details Date Type Department Care Team ([facility] Contact Info) Description 05/31/2019 Telephone Hematology Oncology at [address] [phone] Delmis Dewey outside production inspector Problem ([facility]) Social History Tobacco Use Types [...] Upcoming Encounters Date Type Department Care Team ([facility] Contact Info) Description 03/21/2024 2:30 PM EDT Office Visit Hematology/Oncology at [address] [phone] Edgar Carreon MD [facility] DR [place] [address] Kadie Gaming APRN [facility] [place] [address] 05/15/2024 3:30 PM EST Office Visit Radiation Oncology at [address] [phone] Patsy Shelton MD [facility] [place] [address] documented as of this encounter Visit Diagnoses Not on filedocumented in this encounter Care Teams Flight Agent Relationship Specialty Start Date End Date Navid Avendaño MD [address] [place] [address] PCP - General Family Medicine 01/24/19 documented as of this encounter
--- OUTSIDE RECORDS SUMMARY | 2024-02-29 02:57 | XMS_ITS | Encounter Summary ---
Author Organization [facility] Address [facility] [place] [place] [address] Care Team Providers Care Director Of Business Operations Name Role Phone Navid Avendaño MD Primary Care Provider +1 -[phone] Reason for Visit * Reason Comments On Treatment Visit Encounter Details Date Type Department Care Team (Late st Contact Info) Description 04/11/2019 9:30 AM EDT Office Visit Radiation Oncology at [address] [phone] Patsy Shelton MD [facility] DR [place] [address] Malignant neoplasm of lower-inner quadrant of left [...] w/dominant pattern of micropapillary ca, gr 3, ER+MI+, Her2 IHC neg, s/p mastectomy & SNB, [...] For details, see electronic film record in [employer]. Changes in Medical Condition: R elbow [...] PM EDT Office Visit Hematology/Oncology at [address] [phone] Edgar Carreon MD [facility] DR HEMATOLOGY [place] [address] Kadie Gaming APRN [facility] [place] [address] 05/15/2024 3:30 PM EST Office Visit Radiation Oncology at [address] [phone] Patsy Shelton MD [facility] [address] [place] [address] documented as of this encounter Visit Diagnoses Diagnosis Malignant neoplasm of lower-inner quadrant of left female breast, unspecified estrogen receptor status documented in this encounter Care Teams Director Of Business Operations Relationship Specialty Start Date End Date Navid Avendaño MD [address] [place] [address] PCP - General Family Medicine 01/24/19 documented as of this encounter
--- OUTSIDE RECORDS SUMMARY | 2024-02-29 02:57 | XMS_ITS | Encounter Summary ---
Author Organization [facility] [place] [address] Care Team Providers Care Wood Borer Name Role Phone Navid Avendaño MD Primary Care Provider +1 [phone] Encounter Details Date Type Department Care Team (Late st Contact Info) Description 03/21/2019 Notes Only Radiation Oncology at [address] [phone] Stephanie Stinson MSW OFFICE OF CARE MANAGEMENT [...] an issues as daughter works. Informed pt SHOW WORKER could talk to [facility] as see if she is eligible to use [facility] funds for help with rides. Reminded pt of SHOW WORKER available. Asked that she and/or daughter let SHOW WORKER know what her plans are and ifshe needs to explore use of community resources such as [facility]. Offered support. Will follow for support and resources. documented in this encounter Plan of Treatment Upcoming Encounters Date Type Department Care Team (Late st Contact Info) Description 03/21/2024 2:30 PM EDT Office Visit Hematology/Oncology at [address] [phone] Edgar Carreon MD [facility] DR H[place] [address] Kadie Gaming APRN [facility] [place] [address] 05/15/2024 3:30 PM EST Office Visit Radiation Oncology at [address] [phone] Patsy Shelton MD [facility] [place] [address] documented as of this encounter Visit Diagnoses Not on filedocumented in this encounter Care Teams Wood Borer Relationship Specialty Start Date End Date Navid Avendaño MD [address] [place] [address] PCP - General Family Medicine 01/24/19 documented as of this encounter
--- OUTSIDE RECORDS SUMMARY | 2024-02-29 02:57 | XMS_ITS | Encounter Summary ---
Author Organization [facility] Address [facility] [place] [address] Care Team Providers Care Leasing Professional Name Role Phone Navid Avendaño MD Primary Care Provider [phone] [phone] Reason for Visit * Reason Onset Date Comments Follow-up 02/23/2019 Encounter Details Date Type Department Care Team (Late Contact Info) Description 02/23/2019 Telephone Hematology/Oncology at [address] [phone] Penny Chew RN Follow-up Social [...] PM EDT Office Visit Hematology/Oncology at [address] [phone] Edgar Carreon MD [facility] [address] [place] [address] Kadie Gaming APRN [facility] [place] [address] 05/15/2024 3:30 PM EST Office Visit Radiation Oncology at [address] [phone] Patsy Shelton MD [facility] [place] [address] documented as of this encounter Visit Diagnoses Not on filedocumented in this encounter Care Teams Leasing Professional Relationship Specialty Start Date End Date Navid Avendaño MD [address] [place] [address] [address] [place] [address] PCP - General Family Medicine 01/24/19 documented as of this encounter
--- OUTSIDE RECORDS SUMMARY | 2024-02-29 02:57 | XMS_ITS | Encounter Summary ---
Author Organization [facility] Address [facility] [place] [address] Care Team Providers Care Porcelain Finisher Name Role Phone Maya Gambino MD Primary Care Provider [phone] Encounter Details Date Type Department Care Team (Latest Contact Info) Description 03/28/2015 1:33 PM EDT - 03/29/2015 2:07 PM EDT [place] [phone] Anthony Johns MD [facility] [place] [address] Discharge Disposition: Home Social History Tobacco Use [...] Myesha Santizo Patient Age: 69 y.o. Language: Gambian Race: White Ethnicity: Not nor Admit date: 03/28/2015 Discharge date and time: 03/29/2015 Attending Physician: Anthony Johns MD Discharge Physician: Anthony Johns MD Follow-up Recommendations for Providers: Follow up appointment with Dr. Johns 04/23/15 at 11:00 AM Inpatient Provider Contact Information: Dr. Johns, [facility] Gynecologic Oncology, Discharge Diagnoses (Hospital Problems) [...] (FIGO grade 1) Pelvic U/S 01/30/15 from [facility] showed a thickened endometrial stripe (no [...] at 11:00 AM Gynecology Oncology phone number: [phone] Call your doctor if you develop: --A [...] 11:00 AM Anthony Johns MD Gynecologic Oncology [phone] Discharge References/Attachments None Provider Contact Information: MAYA GAMBINO MD (General) [phone] documented in this encounter Discharge Instructions * Patient Instructions* Aliyah Izaguirre PA - 03/28/2015 4:25 PM EDT Images from the original note were not included. PATIENT DISCHARGE INSTRUCTIONS Follow up appointment with Dr. 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 FISHING BOAT CAPTAIN - Admission Interval Note I have reviewed [...] Johns MD - 03/28/2015 5:48 PM EDT [facility] Operative Note Patient Name: Myesha Santizo : [id number] MR#: [id number] Case Date: 03/28/2015 Surgeon: Surgeon(s) and Role: [...] was referred by Goldie Moore MD [address] [place] [address] for a new diagnosis of grade 1 [...] trocars and a 12-mm right upper quadrant commercial loan assistant port were placed in the usual [...] PM EDT Office Visit Hematology/Oncology at [address] [phone] Edgar Carreon MD [facility] HEMATOLOGY [place] [address] Kadie Gaming APRN [facility] [place] [address] 05/15/2024 3:30 PM EST Office Visit Radiation Oncology at [address] [phone] Patsy Shelton MD [facility] [place] [address] documented as of this encounter Procedures Procedure Name Priority Date/Time Associated Diagnosis Comments RAIMANN MACHINE OPERATOR SCAN 03/30/2015 12:00 AM EDT POCT GLUCOSE [...] in this encounter Results * SCAN DOC: RAIMANN MACHINE OPERATOR (03/30/2015 12:00 AM EDT) Anatomical Region Laterality [...] MD HEMATOLOGY ORDERABLE S Performing Organization Address [facility] Co de Phone Number CERJUAN MILLENNIUM * [...] MD HEMATOLOGY ORDERABLE S Performing Organization Address City/[facility]/ZIP Co de Phone Number CERNER MILLENNIUM * (ABNORMAL) Basic Metabolic Panel (non-fasting) (03/29/2015 4:59 AM EDT) Glucose 165 65 - 199 mg/dL CERNER MILLENNIUM Comment:Diabetes: >=200 mg/d L plus symptoms Blood Urea Nitrogen 13 8 - 18 mg/dL CERNER MILLENNIUM Creatinine 1.03 0.70 - 1.20 mg/dL CERNER MILLENNIUM Comment: Please note that the pediatric reference intervals supplied above were not validated at [facility]. Results from pediatric patients should be interpreted [...] the following links into your internet browser. [email or web address] [email or web address] Blood specimen (specimen) 03/29/2015 4:59 AM EDT 03/29/2015 5:46 AM EDT Narrative Resulting Agency Comment Spec In Lab Anthony Johns MD CHEMISTRY ORDERABLES LAURE THOMPSON * POCT Glucose (03/28/2015 8:38 PM EDT) [facility] Signature Glucose, POC 177 65 - 199 mg/dL CERNER MILLENNIUM Comment: Supplemental ranges: <140 mg/dL before meals <180 mg/dL all other times of the day Blood specimen (specimen) 03/28/2015 8:38 PM EDT 03/28/2015 8:38 PM EDT Anthony Johns MD POINT OF CARE TEST O RDERABLES [facility] * Surgical Pathology Report (03/28/2015 4:55 PM EDT) Final Diagnosis The signing pathologist has (i) examined the relevant preparation(s) for the specimen(s) and (ii) rendered or confirmed the diagnosis(es). Accession Number: [id number] ?Location: BP; BP10; B . ? 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 04/03/15 [facility] 04/03/15 Verified by: ? Shane Galvez [...] supplemental report will follow. Scanned slides: [id number] CLINICAL INFORMATION Specimen Submitted: A - [...] Myometrium: Trabecular; 1.5 cm in thickness. Serosa: [place], smooth and glistening. Cervix: 2.5 cm [...] is surfaced by fibrous adhesions. SECTIONS/PROCESSING: A sales representative sales manager section of the tumor is submitted for frozen section as FS 1. ??A sales representative sales manager section of the TRAV is submitted for [...] studies, if any. 04/03/2015 9:11 AM EDT [facility] Uterine Corpus 03/28/2015 4: 55 PM EDT 03/28/2015 4:55 PM EDT Anthony Johns MD PATHOLOGY/CYTOLOGY O JORGE Performing Organization Address [facility] Co de Phone Number ORIONJUAN THOMPSON [facility] [place] [address] * Specimen to Pathology (surgical or derm) (03/28/2015 4:53 PM EDT) AP Specimen 03/28/2015 4:53 PM EDT 03/28/2015 4:53 PM EDT Narrative LAURE THOMPSON - 03/28/2015 4:53 PM EDT Specimen requisition ordered. ??Separate Pathology report to follow Anthony Johns MD PATHOLOGY/CYTOLOGY O JORGE Performing Organization Address [facility] de Phone Number LAURE THOMPSON * POCT Glucose (03/28/2015 2:03 PM EDT) Glucose, POC 119 65 - 199 mg/dL LAURE JAY Comment: Supplemental ranges: <140 mg/dL before meals <180 mg/dL all other times of the day Blood specimen (specimen) 03/28/2015 2:03 PM EDT 03/28/2015 2:03 PM EDT Anthony Johns MD POINT OF CARE TEST O RDFELI Performing Organization Address [facility] de Phone Number LAURE THOMPSON documented [...] Rosario RN) 0030 (Given - Provider: Emma Veras RN) levothyroxine (SYNTHROID) tablet 75 mcg (CANCELED) [...] Routine documented in this encounter Care Teams Porcelain Finisher Relationship Specialty Start Date End Date Maya Gambino MD [address] [place] [address] PCP - General 05/27/10 01/23/19 documented as of this encounter
--- OUTSIDE RECORDS SUMMARY | 2024-02-29 02:57 | XMS_ITS | Encounter Summary ---
Author Organization [facility] [place] [address] Care Team Providers Care Patient Information Coordinator Name Role Phone Navid Avendaño MD Primary Care Provider +1 [phone] Encounter Details Date Type Department Care Team (Late st Contact Info) Description 04/12/2019 Telephone Radiation Oncology at [address] [phone] Celeste Flynn RN Social History [...] AM EDT Background: Received trillian message from hand packer Pato that patient not making it in [...] 2:30 PM EDT Office Visit Hematology/Oncology at [address] [phone] Edgar Carreon MD [facility] DR [place] [address] Kadie Gaming APRN [facility] [place] [address] 05/15/2024 3:30 PM EST Office Visit Radiation Oncology at [address] [phone] Patsy Shelton MD [facility] [place] [address] documented as of this encounter Visit Diagnoses Not on filedocumented in this encounter Care Teams Patient Information Coordinator Relationship Specialty Start Date End Date Navid Avendaño MD [address] [place], [place] [address] PCP - General Family Medicine 01/24/19 documented as of this encounter
--- OUTSIDE RECORDS SUMMARY | 2024-02-29 02:57 | XMS_ITS | Encounter Summary ---
Author Organization Count Includes [facility] Address [facility] [place] [address] Care Team Providers Care Rippler Name Role Phone Navid Avendaño MD Primary Care Provider +1 -[phone] Reason for Visit * Reason Onset Date Comments Other 01/25/2019 oncotype dx Encounter Details Date Type Department Care Team (Late Contact Info) Description 01/25/2019 Telephone Hematology/Oncology at [address] [phone] Penny Chew RN Other (oncotype [...] online per Dr. Carreon, specimen retrieval from [facility]) and PA requested to be done through onc type dx services. Online confirmation received and results should be back in two weeks. documented in this encounter Plan of Treatment Upcoming Encounters Date Type Department Care Team (Late st Contact Info) Description 03/21/2024 2:30 PM EDT Office Visit Hematology/Oncology at [address] [phone] Edgar Carreon MD [facility] [place] [address] Kadie Gaming APRN [facility] [place] [address] 05/15/2024 3:30 PM EST Office Visit Radiation Oncology at [address] [phone] Patsy Shelton MD [facility] [place] [address] documented as of this encounter Visit Diagnoses Not on filedocumented in this encounter Care Teams Rippler Relationship Specialty Start Date End Date Navid Avendaño MD [address] [place] [address] PCP - General Family Medicine 01/24/19 documented as of this encounter
--- OUTSIDE RECORDS SUMMARY | 2024-02-29 02:57 | XMS_ITS | Encounter Summary ---
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 [phone] Reason/purpose for phone call: Follow-up on breast [...] ER+/WY+, Her2 IHC neg, LN 2/6, DCIS, [id number] (stage IIA) Subjective:I feel lightheaded HPI:Myesha Livingston [...] file Gets together: Not on file Attends caodaism service: Not on file Active member of [...] Tamoxifen alone A ??- Outside slide(s) labeled [id number], collection date 11/11/2018. Breast, left, core needle [...] report, 1+/Negative B ??- Outside slide(s) labeled [id number], collection date 12/07/2018. 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 - Ductal carcinoma in-situ (DCIS), high grade with comedonecrosis. - See Synoptic report. B - Lymph node, [place] #1, left axillary, excision (4 slides labeled B)- - Metastatic carcinoma to one of two lymph nodes. - The anita metastasis measures 1.9 cm. - Extranodal invasion is present. 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 C - Lymph node, left axilla, excision (3 slides labeled C)- - One benign node. D - Lymph node, [place] #2, left axillary, excision (1 slide labeled D)- - One benign node. E - Lymph node, [place] #3, left axillary, excision (2 slides labeled E)- - Two benign nodes. F - Medial Skin edge, excision (2 slides labeled F) - - Benign skin and subcutis. Specimen ?Procedure: ??Total mastectomy ?Specimen Laterality: ?? Left Tumor ?Histologic Type: ?? Invasive carcinoma of no special type (ductal, not ? otherwise specified) ?Histologic Type Comments: ?? with micropapillary features ?Histologic Grade ([place] Histologic Score) ? Glandular (Acinar) / [...] Lymph Nodes Examined: ?6 ? Number of [place] Nodes Examined: ?5 Pathologic Stage Classification (pTNM, [...] ER+/WY+, Her2 IHC neg, LN 2/6, DCIS, [id number] (stage IIA) Treatment: -12/07/2018 left mastectomy and [...] PM EDT Office Visit Hematology/Oncology at [address] [phone] Edgar Carreon MD [facility] HEMATOLOGY [place] [address] Kadie Gaming APRN [facility] [place] [address] 05/15/2024 3:30 PM EST Office Visit Radiation Oncology at [address] [phone] Patsy Shelton MD [facility] [place] [address] documented as of this encounter Visit Diagnoses Diagnosis 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
--- OUTSIDE RECORDS SUMMARY | 2024-02-29 02:57 | XMS_ITS | Encounter Summary ---
Author Organization [facility] [address] [place] [address] Care Team Providers Care Cream Dumper Name Role Phone Navid Avendaño MD Primary Care Provider +1 [phone] Reason for Visit * Reason Onset Date Comments Diarrhea 03/09/2019 Encounter Details Date Type Department Care Team (Late st Contact Info) Description 03/09/2019 Telephone Hematology/Oncology at [address] [phone] Penny Chew RN Diarrhea Social [...] taking it when [place] goes [place] to [place] tomorrowand if her stools get loose she [...] PM EDT Office Visit Hematology/Oncology at [address] [phone] Edgar Carreon MD [facility] DR HEMATOLOGY [place] [address] Kadie Gaming APRN [facility] [place] [address] 05/15/2024 3:30 PM EST Office Visit Radiation Oncology at [address] [phone] Patsy Shelton MD [facility] DR [place] [address] documented as of this encounter Visit Diagnoses Not on filedocumented in this encounter Care Teams Cream Dumper Relationship Specialty Start Date End Date Navid Avendaño MD [address] [place] [address] [address] [place] [address] PCP - General Family Medicine 01/24/19 documented as of this encounter
--- OUTSIDE RECORDS SUMMARY | 2024-02-29 02:57 | XMS_ITS | Encounter Summary ---
Author Organization [facility] Address [facility] [place] [address] Care Team Providers Care Manager Talent Acquisition Name Role Phone Navid Avendaño MD Primary Care Provider +1 [phone] Encounter Details Date Type Department Care Team (Late st Contact Info) Description 05/15/2019 Notes Only Radiation Oncology at [address] [phone] Patsy Shelton MD [facility] [place] [address] Social History Tobacco Use Types Packs/Day Years [...] IDC w/dominant pattern of micropapillary ca, gr3, ER+NE+, Her2 IHC neg, s/p mastectomy & SNB, [...] PM EDT Office Visit Hematology/Oncology at [address] [phone] Edgar Carreon MD [facility] DR [place] [address] Kadie Gaming APRN [facility] [place] [address] 05/15/2024 3:30 PM EST Office Visit Radiation Oncology at [address] [phone] Patsy Shelton MD [facility] [place] [address] documented as of this encounter Visit Diagnoses Not on filedocumented in this encounter Care Teams Manager Talent Acquisition Relationship Specialty Start Date End Date Navid Avendaño MD [address] [place] [address] [address] [place] [address] PCP - General Family Medicine 01/24/19 documented as of this encounter
--- OUTSIDE RECORDS SUMMARY | 2024-02-29 02:57 | XMS_ITS | Encounter Summary ---
Author Organization [facility] Address [facility] [place] [address] Care Team Providers Care Human Resources District Manager Name Role Phone Navid Avendaño MD Primary Care Provider +1 -[phone] Reason for Visit * Reason Comments Chemotherapy [...] TC PEGFILGRASTIM, 6MG, INJECTION Edgar Carreon MD [facility] [place]AT[place] [address] [facility] Hem Onc Office [address] [place] [phone] Referral ID Status Reason Start Date Expiration Date Visits Re quested Visits Authorized [id number] Closed 02/03/2019 02/03/2020 6 6 Encounter Details Date Type Department Care Team (Late st Contact Info) Description 02/21/2019 11:30 AM EDT Infusion Hematology Oncology at [address] [phone] Endometrial adenocarcinoma; Breast cancer, stage [...] clinic hours (8am-5pm Wednesday-Wednesday): pt. can call [phone] with questions or concerns. After clinic hours (5pm-8am Wednesday-Wednesday and weekends) pt can call [phone] and ask for the mosaic worker/oncologist litigation partner. Myesha Santizo verbalized understanding of potential chemotherapy [...] 2:30 PM EDT Office Visit Hematology/Oncology at [address] [phone] Edgar Carreon MD [facility] DR HEMATOLOG[place] [address] Kadie Gaming APRN [facility] [place] [address] 05/15/2024 3:30 PM EST Office Visit Radiation Oncology at [address] [phone] Patsy Shelton MD [facility] [place] [address] documented as of this encounter Visit Diagnoses [...] Arm documented in this encounter Care Teams Human Resources District Manager Relationship Specialty Start Date End Date Navid Avendaño MD [address] [place] [address] PCP - General Family Medicine 01/24/19 documented as of this encounter
--- OUTSIDE RECORDS SUMMARY | 2024-02-29 02:57 | XMS_ITS | Encounter Summary ---
Author Organization [facility] [place] [place] [address] Care Team Providers Care Control Inspector Name Role Phone Navid Avendaño MD Primary Care Provider +1 -[phone] Encounter Details Date Type Department Care Team (Late Contact Info) Description 05/16/2019 Notes Only Radiation Oncology at [address] [phone] Patsy Shelton MD [facility] [place] [address] Social History Tobacco Use Types Packs/Day Years [...] PM EDT Office Visit Hematology/Oncology at [address] [phone] Edgar Carreon MD [facility] HEMATOLOGY [place] [address] Kadie Gaming APRN [facility] [place] [address] 05/15/2024 3:30 PM EST Office Visit Radiation Oncology at [address] [phone] Patsy Shelton MD [facility] [place] [address] documented as of this encounter Visit Diagnoses Not on filedocumented in this encounter Care Teams Control Inspector Relationship Specialty Start Date End Date Navid Avendaño MD [address] [facility] [address] [place], [place] [id number] PCP - General Family Medicine 01/24/19 documented as of this encounter
--- OUTSIDE RECORDS SUMMARY | 2024-02-29 02:57 | XMS_ITS | Encounter Summary ---
Author Organization [facility] Address [facility] [place] [place] [address] Care Team Providers Care Senior Web Analyst Name Role Phone Maya Burden MD Primary Care Provider [phone] Encounter Details Date Type Department Care Team (Late st Contact Info) Description 12/21/2018 External [place] [phone] Provider, Scanning Social History Tobacco Use Types [...] PM EDT Office Visit Hematology/Oncology at [address] [phone] Edgar Carreon MD [facility] DR HEMATOLOGY [place] [address] Kadie Gaming APRN [facility] [place] [address] 05/15/2024 3:30 PM EST Office Visit Radiation Oncology at [address] [phone] Patsy Shelton MD [facility] [place] [address] documented as of this encounter Procedures Procedure Name Priority Date/Time Associated Diagnosis Comments SURGICAL PATHOLOGY SCAN Routine 12/21/2018 documented in this encounter Results * Scan Doc: Surgical Pathology (12/21/2018) Edgar Carreon MD MEDIA MGR SCAN EXT O RDR/RSLT documented in this encounter Visit Diagnoses Not on filedocumented in this encounter Care Teams Senior Web Analyst Relationship Specialty Start Date End Date Maya Burden MD [address] [place] [address] PCP - General 05/27/10 01/23/19 documented as of this encounter
--- OUTSIDE RECORDS SUMMARY | 2024-02-29 02:57 | XMS_ITS | Encounter Summary ---
Author Organization [facility] Address [facility] [place] [address] Care Team Providers Care Weatherization Crew Leader Name Role Phone Navid Avendaño MD Primary Care Provider [phone] Reason for Visit * Reason Comments On Treatment Visit Encounter Details Date Type Department Care Team (Late st Contact Info) Description 04/18/2019 9:30 AM EDT Office Visit Radiation Oncology at [address] [phone] Patsy Shelton MD [facility] [place] [address] Malignant neoplasm of lower-inner quadrant of left [...] w/dominant pattern of micropapillary ca, gr 3, ER+ND+, Her2 IHC neg, s/p mastectomy & SNB, [...] For details, see electronic film record in [employer] System. Changes in Medical Condition: Tylenol arthritis [...] PM EDT Office Visit Hematology/Oncology at [address] [phone] Edgar Carreon MD [facility] [place] [address] Kadie Gaming APRN [facility] [place] [address] 05/15/2024 3:30 PM EST Office Visit Radiation Oncology at [address] [phone] Patsy Shelton MD [facility] [place] [address] documented as of this encounter Visit Diagnoses Diagnosis Malignant neoplasm of lower-inner quadrant of left female breast, unspecified estrogen receptor status documented in this encounter Care Teams Weatherization Crew Leader Relationship Specialty Start Date End Date Navid Avendaño MD [address] [place], [place] [address] PCP - General Family Medicine 01/24/19 documented as of this encounter
--- OUTSIDE RECORDS SUMMARY | 2024-02-29 02:57 | XMS_ITS | Encounter Summary ---
Author Organization [facility] [place] [address] Care Team Providers Care Manager Gift Name Role Phone Navid Avendaño MD Primary Care Provider [phone] Reason for Visit * Reason Onset Date Comments Prior Authorization 02/07/2019 Oncotype Dx Encounter Details Date Type Department Care Team (Late Contact Info) Description 02/07/2019 Telephone Hematology/Oncology at [address] [phone] Patel Berumen RN Prior Authorization [...] 02/07/2019 3:30 PM EDT Fax received from [employer] requesting Medical Records in order to authorize [...] PM EDT Office Visit Hematology/Oncology at [address] [phone] Edgar Carreon MD [facility] DR HEMATOLOGY [place] [address] Kadie Gaming APRN [facility] [place] [address] 05/15/2024 3:30 PM EST Office Visit Radiation Oncology at [address] [phone] Patsy Shelton MD [facility] [place] [address] documented as of this encounter Visit Diagnoses Not on filedocumented in this encounter Care Teams Manager Gift Relationship Specialty Start Date End Date Navid Avendaño MD [address] [place] [address] [address] [place] [address] PCP - General Family Medicine 01/24/19 documented as of this encounter
--- OUTSIDE RECORDS SUMMARY | 2024-02-29 02:57 | XMS_ITS | Encounter Summary ---
Author Organization [facility] Address 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 Breast, left, core needle [...] report, 1+/Negative B ??- Outside slide(s) labeled [id number], collection date 12/07/2018. 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 - Ductal carcinoma in-situ (DCIS), high grade with comedonecrosis. - See Synoptic report. B - Lymph node, [place] #1, left axillary, excision (4 slides labeled B)- - Metastatic carcinoma to one of two lymph nodes. - The anita metastasis measures 1.9 cm. - Extranodal invasion is present. 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 C - Lymph node, left axilla, excision (3 slides labeled C)- - One benign node. D - Lymph node, [place] #2, left axillary, excision (1 slide labeled D)- - One benign node. E - Lymph node, [place] #3, left axillary, excision (2 slides labeled [...] Lymph Nodes Examined: ?6 ? Number of [place] Nodes Examined: ?5 Pathologic Stage Classification (pTNM, [...] ER+/MA+, Her2 IHC neg, LN 2/6, DCIS, [id number] (stage IIA) Treatment: -12/07/2018 left mastectomy and [...] PM EDT Office Visit Hematology/Oncology at [address] [phone] Edgar Carreon MD [facility] DR HEMATOLOGY [place] [address] Kadie Gaming APRN [facility] [place] [address] 05/15/2024 3:30 PM EST Office Visit Radiation Oncology at [address] [phone] Patsy Shelton MD [facility] [address] [place] [address] documented as of this encounter Visit Diagnoses Diagnosis Breast cancer, stage 2, left- Primary 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
--- OUTSIDE RECORDS SUMMARY | 2024-02-29 02:57 | XMS_ITS | Encounter Summary ---
Author Organization [facility] Address 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 On submitted slides (reviewed) - ER immunoreactivity: Positive (>90% cancer cells with immunostaining) Stain intensity: Intermediate and Strong IA immunoreactivity: Positive (>90% cancer cells with immunostaining) Stain intensity: Strong HER2 IHC - Per report, 1+/Negative B ??- Outside slide(s) labeled [id number], collection date 12/07/2018. 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 - Ductal carcinoma in-situ (DCIS), high grade with comedonecrosis. - See Synoptic report. B - Lymph node, [place] #1, left axillary, excision (4 slides labeled B)- - Metastatic carcinoma to one of two lymph nodes. - The anita metastasis measures 1.9 cm. - Extranodal invasion is present. 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 C - Lymph node, left axilla, excision (3 slides labeled C)- - One benign node. D - Lymph node, [place] #2, left axillary, excision (1 slide labeled D)- - One benign node. E - Lymph node, [place] #3, left axillary, excision (2 slides labeled E)- - Two benign nodes. F - Medial Skin edge, excision (2 slides labeled F) - - Benign skin and subcutis. Specimen ?Procedure: ??Total mastectomy ?Specimen Laterality: ?? Left Tumor ?Histologic Type: ?? Invasive carcinoma of no special type (ductal, not ? otherwise specified) ?Histologic Type Comments: ?? with micropapillary features ?Histologic Grade ([place] Histologic Score) ? Glandular (Acinar) / Tubular [...] Lymph Nodes Examined: ?6 ? Number of [place] Nodes Examined: ?5 Pathologic Stage Classification (pTNM, [...] with focal micropapillary features.gr3, LVI-, marilynn neg, ER+/IA+, Her2 IHC neg, LN 2/6, DCIS, [id number] (stage IIA) Treatment: -12/07/2018 left mastectomy and [...] PM EDT Office Visit Hematology/Oncology at [address] [phone] Edgar Carreon MD [facility] [place] [address] Kadie Gaming APRN [facility] [place] [address] 05/15/2024 3:30 PM EST Office Visit Radiation Oncology at [address] [phone] Patsy Shelton MD [facility] [place] [address] documented as of this encounter Procedures Procedure [...] inhibitors documented in this encounter Care Teams High School Library Media Specialist Relationship Specialty Start Date End Date Navid Avendaño MD [address] [place] [address] PCP - General Family Medicine 01/24/19 documented as of this encounter
--- OUTSIDE RECORDS SUMMARY | 2024-02-29 02:57 | XMS_ITS | Encounter Summary ---
Author Organization [facility] Address [facility] [place] [address] Care Team Providers Care Bakery Clerk Name Role Phone Navid Avendaño MD Primary Care Provider [phone] [phone] Reason for Visit * Reason Onset Date Comments Follow-up 02/22/2019 s/p first chemo infusion Encounter Details Date Type Department Care Team (Late st Contact Info) Description 02/22/2019 Telephone Hematology/Oncology at [address] [phone] Patel Berumen, RN Follow-up (s/p [...] re-assess bowels and lightheadedness. 2. Reinforced to patient/care-machine splitter to call facility 25/01 with any new/worsening signs and symptomsor concerns or questions.?? Phone number provided.?? Pt verbalized understanding and is in agreement with plan. ? documented in this encounter Plan of Treatment Upcoming Encounters Date Type Department Care Team (Late st Contact Info) Description 03/21/2024 2:30 PM EDT Office Visit Hematology/Oncology at [address] [phone] Edgar Carreon MD [facility] DR [place] [address] Kadie Gaming APRN [facility] [place] [address] 05/15/2024 3:30 PM EST Office Visit Radiation Oncology at [address] [phone] Patsy Shelton MD [facility] [place] [address] documented as of this encounter Visit Diagnoses Not on filedocumented in this encounter Care Teams Bakery Clerk Relationship Specialty Start Date End Date Navid Avendaño MD [address] [place] [address] [address] [place] [address] PCP - General Family Medicine 01/24/19 documented as of this encounter
--- OUTSIDE RECORDS SUMMARY | 2024-02-29 02:57 | XMS_ITS | Encounter Summary ---
Author Organization [facility] Address [facility] [place] [place] [address] Care Team Providers Care Pocket Creaser Name Role Phone Navid Avendaño MD Primary Care Provider +1 [phone] Encounter Details Date Type Department Care Team (Late st Contact Info) Description 03/21/2019 10:30 AM EDT Office Visit Hematology/Oncology at [address] [phone] Edgar Carreon MD [facility] DR HEMATOLOGY [place] [address] Breast cancer, stage 2, left (Primary Dx); [...] with focal micropapillary features.gr3, LVI-, marilynn neg, ER+/CO+, Her2 IHC neg, LN 2/6, DCIS, [id number] (stage IIA) Subjective:I feel lightheaded HPI:Myesha Livingston [...] file Gets together: Not on file Attends zoroastrian service: Not on file Active member of [...] Tamoxifen alone A ??- Outside slide(s) labeled [id number], collection date 11/11/2018. 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 On submitted slides (reviewed) - ER immunoreactivity: Positive (>90% cancer cells with immunostaining) Stain intensity: Intermediate and Strong CO immunoreactivity: Positive (>90% cancer cells with immunostaining) Stain intensity: Strong HER2 IHC - Per report, 1+/Negative B ??- Outside slide(s) labeled [id number], collection date 12/07/2018. 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 - Ductal carcinoma in-situ (DCIS), high grade with comedonecrosis. - See Synoptic report. B - Lymph node, [place] #1, left axillary, excision (4 slides labeled B)- - Metastatic carcinoma to one of two lymph nodes. - The anita metastasis measures 1.9 cm. - Extranodal invasion is present. 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 C - Lymph node, left axilla, excision (3 slides labeled C)- - One benign node. D - Lymph node, [place] #2, left axillary, excision (1 slide labeled D)- - One benign node. E - Lymph node, [place] #3, left axillary, excision (2 slides labeled [...] Lymph Nodes Examined: ?6 ? Number of [place] Nodes Examined: ?5 Pathologic Stage Classification (pTNM, [...] with focal micropapillary features.gr3, LVI-, marilynn neg, ER+/CO+, Her2 IHC neg, LN 2/6, DCIS, [id number] (stage IIA) Treatment: -12/07/2018 left mastectomy and [...] 2:30 PM EDT Office Visit Hematology/Oncology at [address] [phone] Edgar Carreon MD [facility] HEMATOLOGY [place] [address] Kadie Gaming APRN [facility] [place] [address] 05/15/2024 3:30 PM EST Office Visit Radiation Oncology at [address] [phone] Patsy Shelton MD [facility] [place] [address] documented as of this encounter Visit Diagnoses Diagnosis Breast cancer, stage 2, left- Primary 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
--- OUTSIDE RECORDS SUMMARY | 2024-02-29 02:57 | XMS_ITS | Encounter Summary ---
Author Organization [facility] Address [facility] [place] [place] [address] Care Team Providers Care Tobacco Conditioner Name Role Phone Navid Avendaño MD Primary Care Provider [phone] Reason for Visit * Reason Comments On Treatment Visit Encounter Details Date Type Department Care Team (Late st Contact Info) Description 05/02/2019 9:45 AM EDT Office Visit Radiation Oncology at [address] [phone] Patsy Shelton MD [facility] [place] [address] Malignant neoplasm of lower-inner quadrant of left [...] w/dominant pattern of micropapillary ca, gr 3, ER+IN+, Her2 IHC neg, s/p mastectomy & SNB, [...] PM EDT Office Visit Hematology/Oncology at [address] [phone] Edgar Carreon MD [facility] [place] [address] Kadie Metzger APRN [facility] [place] [address] 05/15/2024 3:30 PM EST Office Visit Radiation Oncology at [address] [phone] Patsy Shelton MD [facility] [place] [address] documented as of this encounter Visit Diagnoses Diagnosis Malignant neoplasm of lower-inner quadrant of left female breast, unspecified estrogen receptor status documented in this encounter Care Teams Tobacco Conditioner Relationship Specialty Start Date End Date Navid Avendaño MD [address] [place] [address] PCP - General Family Medicine 01/24/19 documented as of this encounter
--- OUTSIDE RECORDS SUMMARY | 2024-02-29 02:57 | XMS_ITS | Encounter Summary ---
Author Organization [facility] Address [facility] [place] [place] [address] Care Team Providers Care Kardex Clerk Name Role Phone Navid Avendaño MD Primary Care Provider [phone] [phone] Reason for Visit * Reason Comments On Treatment Visit Encounter Details Date Type Department Care Team (Late st Contact Info) Description 04/04/2019 9:30 AM EDT Office Visit Radiation Oncology at [address] [phone] Patsy Shelton MD [facility] [place] [address] Malignant neoplasm of lower-inner quadrant of left [...] w/dominant pattern of micropapillary ca, gr 3, ER+MA+, Her2 IHC neg, s/p mastectomy & SNB, [...] For details, see electronic film record in [employer] System. Changes in Medical Condition: None. Pain?: [...] PM EDT Office Visit Hematology/Oncology at [address] [phone] Edgar Carreon MD [facility] [place] [address] Kadie Gaming APRN [facility] [place] [address] 05/15/2024 3:30 PM EST Office Visit Radiation Oncology at [address] [phone] Patsy Shelton MD [facility] [address] documented as of this encounter Visit Diagnoses Diagnosis Malignant neoplasm of lower-inner quadrant of left female breast, unspecified estrogen receptor status documented in this encounter Care Teams Kardex Clerk Relationship Specialty Start Date End Date Navid Avendaño MD [address] [place] [address] PCP - General Family Medicine 01/24/19 documented as of this encounter
--- OUTSIDE RECORDS SUMMARY | 2024-02-29 02:57 | XMS_ITS | Encounter Summary ---
Author Organization [facility] Address [facility] [place] [address] Care Team Providers Care Health Service Coordinator Name Role Phone Navid Avendaño MD Primary Care Provider [phone] Reason for Referral * Consultation (Routine) - Closed Specialty Diagnoses / Procedures Referred By Moses damian Referred To Contact Radiation Oncology Diagnoses Breast cancer, stage 2, left Edgar Carreon MD [facility] [address] [place] [address] Stj Rad Onc Treatment [address] [place] [phone] Referral ID Status Reason Start Date Expiration Date V isits Requested Visits Authorized [id number] Closed Consult, Test & Treat 02/03/2019 02/03/2020 1 1 Reason for Visit * Consultation (Routine) - Closed Specialty Diagnoses / Procedures Referred By Moses damian Referred To Contact Hematology and Oncology Diagnoses Breast cancer BREAST CANCER Procedures TREATMENT OPTIONS Kelli Bedolla MD [address] [place] [address] St Hem Onc Office [address] [place] [phone] Referral ID Status Reason Start Date Expiration Date Visits Re quested Visits Authorized [id number] Closed 12/19/2018 12/19/2019 1 1 Encounter Details Date Type Department Care Team (Late st Contact Info) Description 01/24/2019 4:00 PM EDT Office Visit Hematology/Oncology at [address] [phone] Edgar Carreon MD [facility] [address] [place] [address] Endometrial adenocarcinoma; Breast cancer, stage 2, left; [...] ER+/ND+, Her2 IHC neg, LN 2/6, DCIS, [id number] (stage IIA) Subjective:I feel fine HPI:Myesha Livingston [...] kg/m?? Pathology: A ??- Outside slide(s) labeled [id number], collection date 11/11/2018. 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 On submitted slides (reviewed) - ER immunoreactivity: Positive (>90% cancer cells with immunostaining) Stain intensity: Intermediate and Strong ND immunoreactivity: Positive (>90% cancer cells with immunostaining) Stain intensity: Strong HER2 IHC - Per report, 1+/Negative B ??- Outside slide(s) labeled [id number], collection date 12/07/2018. 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 - Ductal carcinoma in-situ (DCIS), high grade with comedonecrosis. - See Synoptic report. B - Lymph node, [place] #1, left axillary, excision (4 slides labeled B)- - Metastatic carcinoma to one of two lymph nodes. - The anita metastasis measures 1.9 cm. - Extranodal invasion is present. 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 C - Lymph node, left axilla, excision (3 slides labeled C)- - One benign node. D - Lymph node, [place] #2, left axillary, excision (1 slide labeled D)- - One benign node. E - Lymph node, [place] #3, left axillary, excision (2 slides labeled E)- - Two benign nodes. F - Medial Skin edge, excision (2 slides labeled F) - - Benign skin and subcutis. Specimen ?Procedure: ??Total mastectomy ?Specimen Laterality: ?? Left Tumor ?Histologic Type: ?? Invasive carcinoma of no special type (ductal, not ? otherwise specified) ?Histologic Type Comments: ?? with micropapillary features ?Histologic Grade (Rhodell Histologic Score) ? Glandular (Acinar) / Tubular [...] Lymph Nodes Examined: ?6 ? Number of [place] Nodes Examined: ?5 Pathologic Stage Classification (pTNM, [...] ER+/ND+, Her2 IHC neg, LN 2/6, DCIS, [id number] (stage IIA) Treatment: -12/07/2018 left mastectomy and [...] PM EDT Office Visit Hematology/Oncology at [address] [phone] Edgar Carreon MD [facility] HEMATOLOGY [place] [address] Kadie Gaming APRN [facility] [place] [address] 05/15/2024 3:30 PM EST Office Visit Radiation Oncology at [address] [phone] Patsy Shelton MD [facility] [place] [address] Scheduled Referrals Name Type Priority Associated Diagnoses [...] breast documented in this encounter Care Teams Health Service Coordinator Relationship Specialty Start Date End Date Navid Avendaño MD [address] [place] [address] PCP - General Family Medicine 01/24/19 documented as of this encounter
--- OUTSIDE RECORDS SUMMARY | 2024-02-29 02:57 | XMS_ITS | Encounter Summary ---
Author Organization [facility] [place] [address] Care Team Providers Care Procurement Assistant Name Role Phone Maya Burden MD Primary Care Provider [phone] Reason for Visit * Reason Comments Post Hospital Discharge Encounter Details Date Type Department Care Team (Latest Contact Info) Description 04/23/2015 11:00 AM EDT Office Visit [place] [address] Anthony Belle MD [facility] [place] [address] Endometrial cancer; Endometrial adenocarcinoma Social History Tobacco [...] 10:49 AM EDT Division [place] [address] Postoperative Visit: Patient Active Problem List Diagnosis [...] may do this surveillance with her primary clinical education specialist, Dr. Hebert for her surveillance or that she is welcome to return to this clinic for surveillance. As always, we are available for any further questions or concerns. Patient seen/examined and plan formulated with Dr. Belle, asparagus buncher oncologist NOELLE VALDEZ MD PGY2 04/23/2015 I saw and evaluated the patient with Dr. Valdez, and I confirmed the history and physical findings as outlined, and I agree with the note as written. documented in this encounter Plan of Treatment Upcoming Encounters Date Type Department Care Team (Late st Contact Info) Description 03/21/2024 2:30 PM EDT Office Visit Hematology/Oncology at [address] [phone] Edgar Carreon MD [facility] [place] [address] Kadie Gaming APRN [facility] [place] [address] 05/15/2024 3:30 PM EST Office Visit Radiation Oncology at [address] [phone] Patsy Shelton MD [facility] [place] [address] documented as of this encounter Visit Diagnoses Diagnosis Endometrial cancer Malignant neoplasm of corpus uteri, except isthmus Endometrial adenocarcinoma Malignant neoplasm of corpus uteri, except isthmus documented in this encounter Care Teams Procurement Assistant Relationship Specialty Start Date End Date Maya Burden MD [address] [place] [address] PCP - General 05/27/10 01/23/19 documented as of this encounter
--- OUTSIDE RECORDS SUMMARY | 2024-02-29 02:57 | XMS_ITS | Encounter Summary ---
Author Organization [facility] Address [facility] [place] [address] Care Team Providers Care Packing Tractor Machine Operator Name Role Phone Navid Avendaño MD Primary Care Provider [phone] Reason for Visit * Reason Comments On Treatment Visit Encounter Details Date Type Department Care Team (Late st Contact Info) Description 05/09/2019 9:30 AM EST Office Visit Radiation Oncology at [address] [phone] Patsy Shelton MD [facility] [place] [address] Malignant neoplasm of lower-inner quadrant of left [...] w/dominant pattern of micropapillary ca, gr 3, ER+MS+, Her2 IHC neg, s/p mastectomy & SNB, [...] For details, see electronic film record in [employer] System. Changes in Medical Condition: Increased sensitivity [...] PM EDT Office Visit Hematology/Oncology at [address] [phone] Edgar Carreon MD [facility] H[place] [address] Kadie Gaming APRN [facility] [place] [address] 05/15/2024 3:30 PM EST Office Visit Radiation Oncology at [address] [phone] Patsy Shelton MD [facility] [place] [address] documented as of this encounter Visit Diagnoses Diagnosis Malignant neoplasm of lower-inner quadrant of left female breast, unspecified estrogen receptor status documented in this encounter Care Teams Packing Tractor Machine Operator Relationship Specialty Start Date End Date Navid Avendaño MD [address] [place] [address] PCP - General Family Medicine 01/24/19 documented as of this encounter
--- OUTSIDE RECORDS SUMMARY | 2024-02-29 02:57 | XMS_ITS | Encounter Summary ---
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 S/p 1 cycle docetaxel/cyclophosphamide followed by discontinuation [...] For details, see electronic film record in [employer] System. 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
--- OUTSIDE RECORDS SUMMARY | 2024-02-29 02:57 | XMS_ITS | Encounter Summary ---
Author Organization [facility] Address [facility] [place] [address] Care Team Providers Care Carbider Name Role Phone Navid Avendaño MD Primary Care Provider [phone] Reason for Visit * Consultation (Routine) - [...] CONSULT CONTINUING PRG RADIATION MANAGEMENT, 5 TREATMENTS [address] Patsy Shelton MD [facility] [place] [address] [facility] Rad Onc Office [address] [place] [phone] Referral ID Status Reason Start Date Expiration Date V isits Requested Visits Authorized [id number] Closed Consult, Test & Treat 03/20/2019 03/19/2020 1 1 Encounter Details Date Type Department Care Team (Latest Contact Info) Description 03/21/2019 11:30 AM EDT Ancillary Appointment Radiation Oncology at [address] [phone] Patsy Shelton MD [facility] [place] [address] Malignant neoplasm of lower-inner quadrant of left [...] your treatment to your nurse or doctor. [facility] Radiation Oncology Our normal business hours are: Wednesday - Wednesday 8 AM to 5 PM [place], [place], [place] For emergent situations after hours please call for either location and ask for the Radiation Oncologist round boner. documented in this encounter Progress Notes * [...] pre- medication plan made: None needed. 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
--- OUTSIDE RECORDS SUMMARY | 2024-02-29 02:57 | XMS_ITS | Encounter Summary ---
Author Organization [facility] [place] [address] Care Team Providers Care Eight Arm Operator Name Role Phone Navid Avendaño MD Primary Care Provider [phone] Encounter Details Date Type Department Care Team (Late Contact Info) Description 02/23/2019 Orders Only Hematology/Oncology at [address] [phone] Ivana Rossi [address] [address] Endometrial adenocarcinoma Social History Tobacco [...] PM EDT Office Visit Hematology/Oncology at [address] [phone] Edgar Carreon MD [facility] DR HEMATOLOGY [place] [address] Kadie Gaming MANAGEMENT PSYCHOLOGIST [facility] DR [place]ICAL [place] [address] 05/15/2024 3:30 PM EST Office Visit Radiation Oncology at [address] [phone] Patsy Shelton MD [facility] DR RADIATION [place] [address] documented as of this encounter Visit Diagnoses Diagnosis 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
--- OUTSIDE RECORDS SUMMARY | 2024-02-29 02:57 | XMS_ITS | Encounter Summary ---
Author Organization [facility] Address [facility] [place] [address] Care Team Providers Care Rn Surgical Pcu Name Role Phone Navid Avendaño MD Primary Care Provider [phone] Encounter Details Date Type Department Care Team (Late st Contact Info) Description 03/14/2019 Notes Only Hematology/Oncology at [address] [phone] Stephanie Stinson MSW OFFICE OF CARE MANAGEMENT [...] Offered support. Reminded pt and daughter of [employer] availability and will follow for support and resources. documented in this encounter Plan of Treatment Upcoming Encounters Date Type Department Care Team (Late st Contact Info) Description 03/21/2024 2:30 PM EDT Office Visit Hematology/Oncology at [address] [phone] Edgar Carreon MD [facility] DR HEMATOLOGY [place] [address] Kadie Gaming APRN [facility] [place] [address] 05/15/2024 3:30 PM EST Office Visit Radiation Oncology at [address] [phone] Patsy Shelton MD [facility] [place] [address] documented as of this encounter Visit Diagnoses Not on filedocumented in this encounter Care Teams Rn Surgical Pcu Relationship Specialty Start Date End Date Navid Avendaño MD [address] [place] [address] PCP - General Family Medicine 01/24/19 documented as of this encounter
--- OUTSIDE RECORDS SUMMARY | 2024-02-29 02:57 | XMS_ITS | Encounter Summary ---
Author Organization [facility] [place] [address] Care Team Providers Care Power Plant Mechanic Name Role Phone Navid Avendaño MD Primary Care Provider [phone] Encounter Details Date Type Department Care Team (Late Contact Info) Description 06/08/2019 Orders Only Hematology [place] [address] Edgar Carreon MD [facility] [address] [place] [address] 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 [...] PM EDT Office Visit Hematology/Oncology at [address] [phone] Edgar Carreon MD [facility] [place] [address] Kadie Gaming APRN [facility] [place] [address] 05/15/2024 3:30 PM EST Office Visit Radiation Oncology at [address] [phone] Patsy Shelton MD [facility] [place] [address] documented as of this encounter Visit Diagnoses Diagnosis 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
--- OUTSIDE RECORDS SUMMARY | 2024-02-29 02:57 | XMS_ITS | Encounter Summary ---
Author Organization [facility] Address [facility] [place] [address] Care Team Providers Care Cereal Supervisor Name Role Phone Navid Avendaño MD Primary Care Provider [phone] Reason for Visit * Reason Comments Chemotherapy [...] [facility] [place] [address] [facility] Hem Onc Office [address] [place] [phone] Referral ID Status Reason Start Date Expiration Date Visits Re quested Visits Authorized [id number] Closed 02/03/2019 02/03/2020 6 6 Encounter Details Date Type Department Care Team (Late st Contact Info) Description 03/14/2019 11:00 AM EDT Infusion Hematology Oncology at [address] [phone] Breast cancer, stage 2, left [...] Attempted to call report to ED, only executive secretary social welfare available to speak with me, I told her the medication that she was receiving and I also faxed info to them at [phone]. Pt did not receive Cytoxan or OnPro. ASSESSMENT Myesha Santizo was sent to [facility] ED via ambulance. PLAN Return to clinic per routine. documented in this encounter Plan of Treatment Upcoming Encounters Date Type Department Care Team (Late st Contact Info) Description 03/21/2024 2:30 PM EDT Office Visit Hematology/Oncology at [address] [phone] Edgar Carreon MD [facility] DR HEMATOLOGY [place] [address] Kadie Gaming APRN [facility] MEDICAL [place] [address] 05/15/2024 3:30 PM EST Office Visit Radiation Oncology at [address] [phone] Patsy Shelton MD [facility] [place] [address] documented as of this encounter Procedures Procedure [...] mL/hr documented in this encounter Care Teams Cereal Supervisor Relationship Specialty Start Date End Date Navid Avendaño MD [address] [place] [address] PCP - General Family Medicine 01/24/19 documented as of this encounter
--- OUTSIDE RECORDS SUMMARY | 2024-02-29 02:58 | XMS_ITS | Encounter Summary ---
Author Organization [facility] Address [facility] [place] [address] Care Team Providers Care Dental Appliance Mechanic Name Role Phone Maya Burden MD Primary Care Provider [phone] Reason for Visit * Reason Comments Establish Care Encounter Details Date Type Department Care Team (Late st Contact Info) Description 03/01/2015 9:00 AM EDT Office Visit [place] [phone] Anthony Belle MD [facility] [place] [address] Endometrial adenocarcinoma; Morbid obesity with BMI of [...] Division of Gynecologic Oncology Fatou Giles MD [facility] Ingrid Mcallister MD [facility] MD [place] [address] New Outpatient Visit: Reason for visit :Myesha Santizo is being seen in the clinic today at the request of Goldie Mortensen Md [address] [place] [address] for the evaluation of endometrial adenocarcinoma. I [...] (FIGO grade 1) Pelvic U/S 01/30/15 from [facility] Endometrial stripe is thickened, no measurement [...] The pathology was not reviewed here at [facility]. Based on these findings, a decision was [...] you for referring this hubert patient to [facility] for her cancer care. I will keep you apprised of her progress. Patient was seen and evaluated with Dr. Belle, Farm Labor Contractor Oncologist, with whom the plan was formulated. [...] 2:30 PM EDT Office Visit Hematology/Oncology at [address] [phone] Edgar Carreon MD [facility] HEMATOLOGY [place] [address] Kadie Gaming APRN [facility] [place] [address] 05/15/2024 3:30 PM EST Office Visit Radiation Oncology at [address] [phone] Patsy Shelton MD [facility] RADIATION [place] [address] documented as of this encounter Procedures Procedure [...] MD HEMATOLOGY ORDERABLE S Performing Organization Address [facility] de Phone Number LAURE FERRERAENNIUM * Electrolytes [...] Belle MD CHEMISTRY ORDERABLES Performing Organization Address [facility] de Phone Number LAURE DAVIDSONIUM * (ABNORMAL) Creatinine (03/01/2015 11:43 AM EDT) Creatinine 0.97 0.70 - 1.20 mg/dL CERNER MILLENNIUM Comment: Please note that the pediatric reference intervals supplied above were not validated at [facility]. Results from pediatric patients should be interpreted [...] the following links into your internet browser. [email or web address] Blood specimen (specimen) 03/01/2015 11:43 AM EDT 03/01/2015 12:15 PM EDT Narrative Resulting Agency Comment Spec In Lab Anthony Belle MD CHEMISTRY ORDERABLES Performing Organization Address [facility] Co de Phone Number LAURE THOMPSON * BUN (03/01/2015 11:43 AM EDT) Blood Urea Nitrogen 18 8 - 18 mg/dL ORIONJUAN THOMPSON Blood specimen (specimen) 03/01/2015 11:43 AM EDT 03/01/2015 12:15 PM EDT Narrative Resulting Agency Comment Spec In Lab Anthony Belle MD CHEMISTRY ORDERABLES Performing Organization Address [facility] Co de Phone Number LAURE THOMPSON documented in this encounter Visit Diagnoses Diagnosis Endometrial adenocarcinoma Malignant neoplasm of corpus uteri, except isthmus Morbid obesity with BMI of 40.0-44.9, adult Morbid obesity documented in this encounter Care Teams Dental Appliance Mechanic Relationship Specialty Start Date End Date Maya Burden MD [address] [place] [address] PCP - General 05/27/10 01/23/19 documented as of this encounter
--- OUTSIDE RECORDS SUMMARY | 2024-02-29 02:58 | XMS_ITS | Encounter Summary ---
Author Organization [facility] Address [facility] [address] [place] [address] Care Team Providers Care Upholstery Covers Inspector Name Role Phone Maya Gambino MD Primary Care Provider [phone] Encounter Details Date Type Department Care Team (Late st Contact Info) Description 03/28/2015 2:59 PM EDT - 03/28/2015 6:27 PM EDT Surgery [place] [phone] Anthony Johns MD [facility] [place] [address] ROBOTIC LAPAROSCOPY,TOTAL HYST, UTERUS<250GM, REM TUBE &/OR [...] Myesha Santizo Patient Age: 69 y.o. Language: Cymraes Race: White Ethnicity: Not nor Admit date: 03/28/2015 Discharge date and time: 03/29/2015 Attending Physician: Anthony Johns MD Discharge Physician: Anthony Johns MD Follow-up Recommendations for Providers: Follow up appointment with Dr. Johns 04/23/15 at 11:00 AM Inpatient Provider Contact Information: Dr. Johns, [facility] Gynecologic Oncology, Discharge Diagnoses (Hospital Problems) [...] (FIGO grade 1) Pelvic U/S 01/30/[address] [facility] showed a thickened endometrial stripe (no [...] at 11:00 AM Gynecology Oncology phone number: [phone] Call your doctor if you develop: --A [...] 11:00 AM Anthony Johns MD Gynecologic Oncology [phone] Discharge References/Attachments None Provider Contact Information: MAYA GAMBINO MD (General) [phone] documented in this encounter Discharge Instructions * Patient Instructions* Aliyah Izaguirre PA - 03/28/2015 4:25 PM EDT Images from the original note were not included. PATIENT DISCHARGE INSTRUCTIONS Follow up appointment with Dr. Johns: 04/23/15 at 11:00 AM Gynecology Oncology phone number: [phone] Call your doctor if you develop: --A [...] MD - 03/28/2015 3:00 PM EDT Inpatient RN TEACHER - Admission Interval Note I have [...] Johns MD - 03/28/2015 5:48 PM EDT [facility] Operative Note Patient Name: Myesha Santizo : [id number] MR#: [id number] Case Date: 03/28/2015 Surgeon: Surgeon(s) and Role: [...] was referred by Goldie Moore MD [address] [place] [address] for a new diagnosis of grade 1 [...] trocars and a 12-mm right upper quadrant cafeteria assistant port were placed in the usual [...] PM EDT Office Visit Hematology/Oncology at [address] [phone] Edgar Carreon MD [facility] [place] [address] Kadie Gaming APRN [facility] [place] [address] 05/15/2024 3:30 PM EST Office Visit Radiation Oncology at [address] [phone] Patsy Shelton MD [facility] [place] [address] documented as of this encounter Procedures Procedure Name Priority Date/Time Associated Diagnosis Comments DIRECTOR OF PERIOPERATIVE SERVICES SCAN 03/30/2015 12:00 AM EDT POCT GLUCOSE [...] in this encounter Results * SCAN DOC: DIRECTOR OF PERIOPERATIVE SERVICES (03/30/2015 12:00 AM EDT) Anatomical Region Laterality [...] intervals supplied above were not validated at [facility]. Results from pediatric patients should be interpreted [...] the following links into your internet browser. [email or web address] Blood specimen (specimen) 03/29/2015 4:59 AM EDT [...] POINT OF CARE TEST O RDERABLES [facility] * Surgical Pathology Report (03/28/2015 4:55 PM EDT) Final Diagnosis The signing pathologist has (i) examined the relevant preparation(s) for the specimen(s) and (ii) rendered or confirmed the diagnosis(es). Accession Number: [id number] ?Location: BP; BP10; B . ? 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 04/03/15 [facility] 04/03/15 Verified by: ? Shane Galvez MD [...] supplemental report will follow. Scanned slides: [id number] CLINICAL INFORMATION Specimen Submitted: A - [...] Myometrium: Trabecular; 1.5 cm in thickness. Serosa: Grand Detour, smooth and glistening. Cervix: 2.5 cm in [...] is surfaced by fibrous adhesions. SECTIONS/PROCESSING: A appeals representative section of the tumor is submitted for frozen section as FS 1. ??A appeals representative section of the TRAV is submitted [...] studies, if any. 04/03/2015 9:11 AM EDT [facility] Uterine Corpus 03/28/2015 4: 55 PM EDT 03/28/2015 4:55 PM EDT Anthony Johns MD PATHOLOGY/CYTOLOGY O JORGE Performing Organization Address [facility] Co de Phone Number LAURE Caster[employer]DELL [facility] [place] [address] * Specimen to Pathology (surgical or derm) (03/28/2015 4:53 PM EDT) AP Specimen 03/28/2015 4:53 PM EDT 03/28/2015 4:53 PM EDT Narrative LAURE THOMPSON - 03/28/2015 4:53 PM EDT Specimen requisition ordered. ??Separate Pathology report to follow Anthony Johns MD PATHOLOGY/CYTOLOGY O JORGE Performing Organization Address [facility] de Phone Number [facility] * POCT Glucose (03/28/2015 2:03 PM EDT) Glucose, POC 119 65 - 199 mg/dL [facility]Stats[facility]IN[facility] Comment: Supplemental ranges: <140 mg/dL before meals <180 mg/dL all other times of the day Blood specimen (specimen) 03/28/2015 2:03 PM EDT 03/28/2015 2:03 PM EDT Anthony Johns MD POINT OF CARE TEST O JORGE Performing Organization Address [facility] Co de Phone Number ORIONJUAN JAY [...] Wed03/29/15 at 0459, Recovery (Recovery-Hospital Unit) [facility] 03/28/2015 8:33 PM EDT 1,000 mLs 100 [...] Routine 0608 (Given - Provid er: Emma Versa RN) sertraline (ZOLOFT) tablet 50 mg (CANCELED) [...] Routine documented in this encounter Care Teams Upholstery Covers Inspector Relationship Specialty Start Date End Date Maya Gambino MD [address] [place] [address] PCP - General 05/27/10 01/23/19 documented as of this encounter
--- OUTSIDE RECORDS SUMMARY | 2024-02-29 02:58 | XMS_ITS | Encounter Summary ---
Author Organization [facility] [address] [place] [address] Care Team Providers Care Bunghole Borer Name Role Phone Maya Burden MD Primary Care Provider Encounter Details Date Type Department Care Team (Late Contact Info) Description 03/01/2015 11:00 AM EDT Clinical [place] [address] Social History Tobacco Use Types Packs/Day Years [...] PM EDT Office Visit Hematology/Oncology at [address] [phone] Edgar Carreon MD [facility] DR HEMATOLOGY [place] [address] Kadie Gaming APRN [facility] [place] [address] 05/15/2024 3:30 PM EST Office Visit Radiation Oncology at [address] [phone] Patsy Shelton MD [facility] [place] [address] documented as of this encounter Visit Diagnoses Not on filedocumented in this encounter Care Teams Bunghole Borer Relationship Specialty Start Date End Date Maya Burden MD [address] [place], [place] [phone] PCP - General 05/27/10 01/23/19 documented as of this encounter
[2024-02-29 10:42] LABS: Abs Immature Grans 0.04 10^3/uL (0.0-0.06); Absolute Basophil Count 0.02 10^3/uL (0.0-0.2); Absolute Eosinophil Count 0.09 10^3/uL (0.0-0.7); Absolute Lymphocyte Count 1.27 10^3/uL (1.2-3.4); Absolute Monocyte Count 0.41 10^3/uL (0.1-0.8); Absolute Neutrophil Count 4.29 10^3/uL (1.2-6.7); Basophils % 0.3 %; Eosinophils % 1.5 %; HCT 37.1 % (36.0-46.0); HGB 11.9 g/dL (11.2-15.7); Immature Grans % 0.7 %; Lymphocytes % 20.8 %; MCH 28.8 pg (27.0-33.0); MCHC 32.1 % (32.0-36.0); MCV 90 fL (80-95); MPV 10.5 fL (8.0-11.0); Monocytes % 6.7 %; Platelet Count 190 10^3/uL (130-400); RBC 4.13 10^6/uL (3.93-5.22); RDW 14.3 % (11.7-14.6); RDW-SD 46.8 fL; WBC 6.12 10^3/uL (4.4-10.8)
[2024-02-29 11:12] LABS: ALT 33 U/L (14-59); AST 17 U/L (15-37); Albumin 3.6 g/dL (3.4-5.0); Alkaline Phosphatase 106 U/L (46-116); Anion Gap 14.5 mmol/L (3-11); BUN 16 mg/dL (7-18); Bilirubin, Total 0.32 mg/dL (0.2-1.0); CO2 24.5 mmol/L (21.0-32.0); CREATININE 1.5 mg/dL (0.55-1.02); Calcium 9.4 mg/dL (8.5-10.1); Chloride 101 mmol/L (98-107); Estimated GFR 35.67 (mL/min/1.73m2); Ferritin 70 ng/mL (8-252); Glucose 164 mg/dL (74-106); Potassium 4.1 mmol/L (3.5-5.1); Sodium 140 mmol/L (136-145); Total Protein 7.5 g/dL (6.4-8.2)
== END 2024-02-29 02:53 | disposition home or self-care (01) ==
PROVIDERS: PCP Family Medicine; Visit Provider Nurse Practitioner
DX: C50.912 Malignant neoplasm of unspecified site of left female breast (principal)
CPT/HCPCS: 36415; 80053; 82728; 85025

== ENCOUNTER 2024-04-28 01:51 | Outpatient (CLI) | payer OTHER, SELFPAY ==
--- OUTSIDE RECORDS SUMMARY | 2024-04-28 01:56 | XMS_ITS | Encounter Summary ---
Author Organization [facility] Address [address] [place] [address] Care Team Providers Care Continuity Clerk Name Role Phone Maya Gambino MD Primary Care Provider [phone] Encounter Details Date Type Department Care Team (Late st Contact Info) Description 10/01/2014 Results Only [facility] [phone] Sonya Short MD [facility] [address] [place], [place] [phone] Social History Tobacco Use Types Packs/Day Years [...] ? JENNIFER SANTIZO ? Accession #: ? [id number] ? : ? 1945 (Age: 69) ??F [...] Nguyễn 10/02/2014 08:54 AM End of Report [facility] 10/01/2014 18:1 5 EDT 10/01/2014 18:15 EDT Sonya Short MD PATHOLOGY ORDERA BLES [facility] [address] [place] [address] documented in this encounter Visit Diagnoses Not on filedocumented in this encounter Care Teams Continuity Clerk Relationship Specialty Start Date End Date Maya Gambino MD [address] [place] [address] [place] [address] PCP - General 10/02/11 11/08/19 documented as of this encounter
--- OUTSIDE RECORDS SUMMARY | 2024-04-28 01:56 | XMS_ITS | Encounter Summary ---
Author Organization [facility] Address [address] [place] [address] Care Team Providers Care Assistant Professor Nurse Education Name Role Phone Unavailable Primary Care Provider Unavailabl e Encounter Details Date Type Department Care Team (Late st Contact Info) Description 07/19/2003 Results Only [facility] - Map conversion [address] [place] [address] Irving Wolfe MD [address] [place] [address] Social History Tobacco Use Types Packs/Day Years [...] ? JENNIFER SANTIZO ? Accession #: ? [id number] ? : ? 1945 (Age: 58) ??F [...] is entirely submitted in one cassette. ??(Luis Rodriguez)/[facility] End of Report JUNIOR MICHAEL 07/19/2003 07/19/2003 15: 19 EST Irving Wolfe MD PATHOLOGY ORDERABLES [facility] [address] [place] [address] documented in this encounter Visit Diagnoses Not on filedocumented in this encounter
--- OUTSIDE RECORDS SUMMARY | 2024-04-28 01:56 | XMS_ITS | Encounter Summary ---
Author Organization [facility] Address [address] [place] [address] Care Team Providers Care Embedded Software Design Engineer Name Role Phone Maya Burden MD Primary Care Provider Encounter Details Date Type Department Care Team (Latest Contact Info) Description 12/07/2018 19:46 EDT - 12/07/2018 23:59 EDT Hospital Encounter [address] [address] Unknown, Provider, Discharge Disposition: Home or Self [...] on filedocumented in this encounter Care Teams Embedded Software Design Engineer Relationship Specialty Start Date End Date Maya Burden MD [address] [place] [address] [place] [address] PCP - General 10/02/11 11/08/19 documented as of this encounter
--- OUTSIDE RECORDS SUMMARY | 2024-04-28 01:56 | XMS_ITS | Clinical Summary ---
Author Organization [facility] Address [address] [place] [address] Care Team Providers Care Administrative Executive Name Role Phone Navid Avendaño MD Primary Care Provider [phone] Social History Tobacco Use Types Packs/Day Years [...] COVID-19 Vaccine ( season) 2023 Care Teams Administrative Executive Relationship Specialty Start Date End Date Navid Avendaño MD [address] [place] [address] PCP - General 11/09/19
--- OUTSIDE RECORDS SUMMARY | 2024-04-28 01:56 | XMS_ITS | Encounter Summary ---
Author Organization [facility] Address [address] [place] [address] Care Team Providers Care Bpo Specialist Name Role Phone Navid Avendaño MD Primary Care Provider [phone] Encounter Details Date Type Department Care Team (Late st Contact Info) Description 12/21/2019 Lab Requisition [facility] Pathology & Laboratory Medicine - [facility] [address] [place] [address] Outr Resulting Lab, Provider Social History Tobacco [...] 13:00 EDT) Hold Hold 12/21/2019 22:01 EDT [facility] Blood VENOUS BLOOD / Unknown 12/21/2019 13:00 EDT 12/21/2019 21:00 EDT Provider Outr Resulting Lab LAB INFO SER VICE AND SUPPORT & PHONE RESULT Performing Organization Address City/State/[facility] Co de Phone Number [facility] [address] [place] [address] * (ABNORMAL) SPEP, INCLUDES QUANTITATION OF MONOCLONAL SPIKE (12/21/2019 13:00 EDT) Total Protein 6.9 6.3 - 8.2 g/dL 12/22/2019 14:18 EDT [facility] Albumin % 58.5 55.8 - 66.1 % 12/22/2019 14:18 EDT [facility] Alpha-1 % 4.4 2.9 - 4.9 % 12/22/2019 14:18 EDT [facility] Alpha-2 % 11.2 7.1 - 11.8 % 12/22/2019 14:18 EDT [facility] Beta % 13.9(H) 8.4 - 13.1 % 12/22/2019 14:18 EDT [facility] Gamma % 12.0 11.1 - 18.8 % 12/22/2019 14:18 EDT [facility] SPEP Comment No apparent monoclonal protein seen on serum electrophoresis 12/22/2019 14:18 T [facility] Comment:See scanned/suppleme ntary report. Blood VENOUS BLOOD / Unknown 12/21/2019 13:00 EDT 12/21/2019 20:58 EDT Provider Outr Resulting Lab CHEMISTRY & BLOOD GAS ORDERABLES Performing Organization Address [facility] Co de Phone Number [facility] [address] [place] [address] * (ABNORMAL) HAPTOGLOBIN (12/21/2019 13:00 EDT) Haptoglobin 207(H) 32 - 197 mg/dL 12/22/2019 11:15 EDT [facility] Blood VENOUS BLOOD / Unknown 12/21/2019 13:00 EDT 12/21/2019 20:58 EDT Provider Outr Resulting Lab CHEMISTRY & BLOOD GAS ORDERABLES Performing Organization Address [facility]/ZIP Co de Phone Number [facility] [address] [place] [address] documented in this encounter Visit Diagnoses Not on filedocumented in this encounter Care Teams Bpo Specialist Relationship Specialty Start Date End Date Navid Avendaño MD [address] [place] [address] PCP - General 11/09/19 documented as of this encounter
--- OUTSIDE RECORDS SUMMARY | 2024-04-28 01:56 | XMS_ITS | Encounter Summary ---
Author Organization [facility] Address [address] [place] [address] Care Team Providers Care Behavioral Instructor Name Role Phone Navid Avendaño MD Primary Care Provider [phone] Encounter Details Date Type Department Care Team (Late st Contact Info) Description 11/10/2019 Lab Requisition [facility] Pathology & Laboratory Medicine - [address] [address] Elio Hatfield, [address] [place], [place] [phone] Follicular cyst of the skin and subcutaneous [...] and granulation tissue formation. 11/13/2019 11:37 EDT [facility] at 1137 Attestation By the signature below, the attending physician certifies that they have 1) personally conducted a gross and/or microscopic examination of the described specimen(s), and/or personally interpreted the results of laboratory testing of the described specimen(s), and 2) personally rendered or confirmed the above diagnosis. 11/13/2019 11:37 [facility] at 1137 Microscopic Description There is a cyst that is lined by stratified squamous epithelium that matures through a granular layer. The cyst is filled with laminated orthokeratin. Portions of the cyst wall are disrupted. The surrounding dermis is marked by fibrosis, granulation tissue formation, and inflammation. There are foreign body giant cells associated with liberated keratin. 11/13/2019 11:37 [facility] Clinical History Chronic skin cyst, now infected 11/13/2019 11:37 [facility] Gross Description A. [...] deep margin. The margins are inked blue. Gas Stove Servicer Helper sections are submitted as follows: Block plata: A1-A4- client relations representative central sections including closest margins A5- tips, reverse en face Jignesh Jacky 11/10/2019 9:11 11/13/2019 11:37 T [facility] Scanned Images 11/13/2019 11:37 [facility] Tissue TISSUE SPECIMEN FROM SKIN / Unknown 11/09/2019 13:15 EDT 11/10/2019 7:44 EDT Elio Hatfield DO PATHOLOGY ORDER LUIS ENRIQUE [facility] [address] [place] [address] documented in this encounter Visit Diagnoses Diagnosis Follicular cyst of the skin and subcutaneous tissue, unspecified documented in this encounter Care Teams Behavioral Instructor Relationship Specialty Start Date End Date Navid Avendaño MD [facility] [place] [address] PCP - General 11/09/19 documented as of this encounter
--- OUTSIDE RECORDS SUMMARY | 2024-04-28 01:56 | XMS_ITS | Encounter Summary ---
Author Organization [facility] Address [address] [place] [address] Care Team Providers Care General Operations Agent Name Role Phone Navid Avendaño MD Primary Care Provider [phone] Encounter Details Date Type Department Care Team (Late st Contact Info) Description 08/20/2021 Lab Requisition [facility] Pathology & Laboratory Medicine - [facility] [address] [place] [address] Outr Resulting Lab, Provider Social History Tobacco [...] 10 - 291 ng/mL 08/20/2021 23:11 EST [facility] Blood VENOUS BLOOD / Unknown 08/20/2021 13:40 EST 08/20/2021 22:00 EST Provider Outr Resulting Lab CHEMISTRY & BLOOD GAS ORDERABLES [facility] [address] [place] [address] documented in this encounter Visit Diagnoses Not on filedocumented in this encounter Care Teams General Operations Agent Relationship Specialty Start Date End Date Navid Avendaño MD [address] [place], [place] [address] [address] PCP - General 11/09/19 documented as of this encounter
--- OUTSIDE RECORDS SUMMARY | 2024-04-28 01:56 | XMS_ITS | Encounter Summary ---
Author Organization [facility] Address [address] [place] [address] Care Team Providers Care Washery Boss Name Role Phone Maya Burden MD Primary Care Provider [phone] Encounter Details Date Type Department Care Team (Late st Contact Info) Description 07/04/2018 Results Only [facility] [phone] Lucero Albarado, [address] [place], [place] [phone] Social History Tobacco Use Types Packs/Day Years [...] cells. ??Deeper sections show similar features. ??(Dr. Coombs)/[facility] Document reviewed and electronically signed by: CHAKA COOMBS MD Report ??Date: 07/07/2018 16:09 By the signature above, the attending physician certifies that he/she has personally conducted a gross and/or microscopic examination of the described specimens and rendered or confirmed the above diagnosis. Specimen(s) Received: Right nasal tip Clinical History: History skin cancer; please fax report to [phone] Gross Description: ? Received in formalin labelled with proper patient identification (initials B, J) and R nasal tip are two pieces of a fragmented shave biopsy of patel-marie pearly skin (reconstructed 0.5 x 0.5 x 0.1 cm). The specimens are inked and submitted entirely in 1. CURTIS Rodriguez ([facility]) 07/06/2018 3:52 PM End of Report [facility] 07/04/2018 15:4 0 EST 07/06/2018 15:40 EST Lucero Albarado DO PATHOLOGY ORDER LUIS ENRIQUE [facility] [address] [place] [address] documented in this encounter Visit Diagnoses Not on filedocumented in this encounter Care Teams Washery Boss Relationship Specialty Start Date End Date Maya Burden MD [address] [place] [address] [place] [address] PCP - General 10/02/11 11/08/19 documented as of this encounter
--- OUTSIDE RECORDS SUMMARY | 2024-04-28 01:56 | XMS_ITS | Clinical Summary ---
Author Organization [facility] Address [facility] [place] [address] Care Team Providers Care Parts Person Name Role Phone Navid Avendaño MD Primary Care Provider [phone] Allergies Active Allergy Reactions Criticality Noted Date [...] 500 mg Tablet As needed 12/24/2012 Active lisinopril (PRINIVIL;ZESTRIL) 10 mg Tablet Daily 05/02/2013 Active metFORMIN (GLUCOPHAGE) 500 mg Tablet Twice a day 05/03/2014 Active senna-docusate (PERICOLACE) 8.6-50 mg Tablet Take 1 tablet by mouth daily. 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 90 tablet 5 12/14/2023 Active vitamin E 400 unit capsule Take 1 capsule by mouth 2 times daily. Active letrozole (Femara) 2.5 mg tabletIndications:H ormone receptor positive malignant neoplasm of left breast Take 1 tablet by mouth daily. 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; Anemia, unspecified type; 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 03/21/2024 Travel 03/20/2024 Refill Hematology/Oncology at [address] [phone] Edgar Carreon MD 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 02/29/2024 12:05 AM EDT Ancillary Procedure Radiology Library at [facility] [place] [phone] Patsy Shelton MD 02/29/2024 Ancillary Procedure Radiology Library at [facility] [place] [phone] Edgar Carreon MD from Last 3 Months Family History [...] Sign Reading Time Taken Comments Blood Pressure 145/67 03/21/2024 2:35 PM EDT Pulse 86 03/21/2024 2:35 PM EDT Temperature 36.5 ??C (97.7 ??F) 03/21/2024 2:35 PM ED T Respiratory Rate 16 03/21/2024 2:35 PM EDT Oxygen Saturation 97% 03/21/2024 2:35 PM EDT Inhaled Oxygen Concentration - - Weight 99.8 kg (220 lb) 03/21/2024 2:35 PM EDT Height 153 cm (5' 0.24) 03/21/2024 2:35 PM EDT Body Mass Index 42.63 03/21/2024 2:35 PM EDT Plan of Treatment Upcoming Encounters Date Type Department Care Team (Late st Contact Info) Description 05/15/2024 3:30 PM EST Office Visit Radiation Oncology at [address] [phone] Patsy Shelton MD [facility] [place] [address] Health Maintenance Due Date Last Done Comments Pneumoccocal Vaccine: 65+ (1 of 2 - PCV) 1952 DM Hemoglobin A1c 1956 DM Opthalmology Exam 1956 DM Urine Microalbumin yearly 1956 Hepatitis C Screening 1964 Tetanus/Diphtheria/Pertussis Vaccines (1 - Tdap) 1965 Zoster vaccine (1 of 2) 1996 Bone Density Scan 2011 DM Creatinine yearly 03/29/2016 03/29/2015, 03/01/20 15 Covid-19 Vaccine (3 - season) 2024, 09/03/2020 Influenza (Flu) vaccine (1 o f 1 - Influenza standard series) 03/05/2024 Procedures Procedure Name Priority Date/Time Associated Diagnosis Comments MAMMOGRAM SCAN 03/01/2024 12:00 AM EDT FILM LIBRARY-STORAGE ONLY US BREAST Routine 02/29/2024 12:05 AM EDT FILM LIBRARY STORAGE ONLY MAMMO Routine 02/29/2024 12:00 AM EDT LAB SCAN 02/29/2024 12:00 AM EDT MAMMOGRAM SCAN 02/29/2024 12:00 AM EDT BASIC METABOLIC PANEL Routine 03/29/2015 4:59 AM EDT from Last 3 Months or Most Recently Relevant to Health Maintenance Results * Scan Doc: Mammogram (03/01/2024 12:00 AM EDT) Only the most recent of2 resultswithin the time period is included. Anatomical Region Laterality Modality Other Narrative 03/01/2024 12:00 AM EDT Ordered by an unspecified provider. Scanning Provider MEDIA MGR SCAN EXT O RDR/RSLT * Film Library Storage Only US Breast (02/29/2024 12:05 AM EDT) Narrative [facility] - 03/02/2024 6:46 PM EDT This exam is auto-finalizing. It's purpose is for storage only. Patsy Shelton MD [facility] FILM LIBRARY ORD ERABLES Performing Organization Address [facility] de Phone Number [place], [place] * Scan Doc: Lab (02/29/2024 12:00 AM EDT) Narrative 02/29/2024 12:00 AM EDT Ordered by an unspecified provider. Scanning Provider MEDIA MGR SCAN EXT O RDR/RSLT * Film Library- Storage Only Mammo (02/29/2024 12:00 AM EDT) Narrative [facility] - 03/02/2024 6:38 PM EDT This exam is auto-finalizing. It's purpose is for storage only. Edgar Carreon MD [facility] FILM LIBRARY ORD ERABLES Performing Organization Address [facility] de Phone Number [place], [place] * (ABNORMAL) Basic Metabolic Panel (non-fasting) (03/29/2015 4:59 AM EDT) [facility] Glucose 165 65 - 199 mg/dL CERNER MILLENNIUM Comment:Diabetes: >=200 mg/d L plus symptoms Blood Urea Nitrogen 13 8 - 18 mg/dL CERNER MILLENNIUM Creatinine 1.03 0.70 - 1.20 mg/dL CERNER MILLENNIUM Comment: Please note that the pediatric reference intervals supplied above were not validated at [facility]. Results from pediatric patients should be interpreted [...] the following links into your internet browser. [email or web address] Blood specimen (specimen) 03/29/2015 4:59 AM EDT 03/29/2015 5:46 AM EDT Narrative Resulting Agency Comment Spec In Lab Anthony Belle MD CHEMISTRY ORDERABLES CERNER MILLENNIUM from Last 3 Months or Most Recently Relevant to Health Maintenance Advance Directives Documents on File Type Date Recorded Patient Vice President Marketing & Development Expl anation Advance Directives and Alberto marrero Will 03/28/2015 2:40 PM * Full Code (Latest Code Status on File) Date Activated Date Inactivated Comments 03/28/2015 6:13 PM 03/29/2015 4:12 PM Question Answer Comments Does patient have capacity to make decision: Yes * Full Code Date Activated Date Inactivated Comments 03/28/2015 3:02 PM 03/28/2015 6:13 PM Question Answer Comments Does patient have capacity to make decision: Yes Care Teams Parts Person Relationship Specialty Start Date End Date Navid Avendaño MD [address] [place] [address] PCP - General Family Medicine 01/24/19
--- OUTSIDE RECORDS SUMMARY | 2024-04-28 01:56 | XMS_ITS | Continuity of Care Document ---
Author Name [facility] Organization [facility] Care Team Providers Care Upholsterer Helper Name Role Phone [facility] Unavailable Unavailable Social History Combined list of available smoking, tobacco, and other social history from Department of Defense and Veterans Affairs facilities. Social History Type Response Date Comment Sourc e This section is an empty social history section. [facility]
--- OUTSIDE RECORDS SUMMARY | 2024-04-28 01:56 | XMS_ITS | Encounter Summary ---
Author Organization [facility] Address [address] [place] [address] Care Team Providers Care Social Media Strategist Name Role Phone Unavailable Primary Care Provider Unavailabl e Encounter Details Date Type Department Care Team (Late st Contact Info) Description 08/11/2006 Results Only [facility] - Map conversion [address] [place] [address] Irving Wolfe MD [address] [place] [phone] Social History Tobacco Use Types Packs/Day Years [...] ? JENNIFER SANTIZO ? Accession #: ? [id number] ? : ? 1945 (Age: 61) ??F [...] represent inflammation adjacent to a diverticulum. ??(Dr. Alonso)/[facility] Document reviewed and electronically signed by: [...] submitted in toto in one cassette. ??(Nuria Walton)/[facility] End of Report JUNIOR MICHAEL 08/11/2006 08/11/2006 15: 12 EST Irving Wolfe MD PATHOLOGY ORDERABLES [facility] [address] [place] [address] documented in this encounter Visit Diagnoses Not on filedocumented in this encounter
--- OUTSIDE RECORDS SUMMARY | 2024-04-28 01:56 | XMS_ITS | Encounter Summary ---
Author Organization [facility] Address [address] [place] [address] Care Team Providers Care Pancake Professional Name Role Phone Unavailable Primary Care Provider Unavailabl e Encounter Details Date Type Department Care Team (Late st Contact Info) Description 12/07/2006 Results Only [facility] - Maple conversion [address] [place] [address] Candice Xiong MD [address] [place] [address] [place] [address] Social History Tobacco Use Types Packs/Day Years [...] ? JENNIFER SANTIZO ? Accession #: ? [id number] ? : ? 1945 (Age: 61) ??F [...] mucus entirely submitted in one cassette. (Kaylene Archuleta/[facility] End of Report JUNIOR MICHAEL 12/07/2006 12/08/2006 15: 28 EDT Candice Xiong MD PATHOLOGY ORDERABLES [facility] [address] [place] [address] documented in this encounter Visit Diagnoses Not on filedocumented in this encounter
--- OUTSIDE RECORDS SUMMARY | 2024-04-28 01:56 | XMS_ITS | Encounter Summary ---
Author Organization [facility] Address [address] [place] [address] Care Team Providers Care Vp Lab Name Role Phone Maya Burden MD Primary Care Provider [phone] Encounter Details Date Type Department Care Team (Latest Contact Info) Description 03/13/2015 16:35 EDT - 03/13/2015 23:59 EDT Hospital Encounter [address] [address] Unknown, Provider, Discharge Disposition: Home or Self Care Social History Tobacco Use Types Packs/Day Years Used Date Smoking Tobacco: Never Assessed Sex and Gender Information Value Date Recorded Sex Assigned at Not on file Gender Identity Female 03/04/2020 7:29 EDT Sexual Orientation Not on file documented as of this encounter Discharge Disposition Disposition Code Departure Means Destination Home or Self [facility] documented in this encounter Plan of Treatment Not on file documented as of this encounter Visit Diagnoses Not on filedocumented in this encounter Care Teams Vp Lab Relationship Specialty Start Date End Date Maya Burden MD [address] [place] [address] [place] [address] PCP - General 10/02/11 11/08/19 documented as of this encounter
--- OUTSIDE RECORDS SUMMARY | 2024-04-28 01:56 | XMS_ITS | Encounter Summary ---
Author Organization [facility] Address [address] [place] [address] Care Team Providers Care Manufacturing Technologist Name Role Phone Maya Burden MD Primary Care Provider [phone] Encounter Details Date Type Department Care Team (Late st Contact Info) Description 10/14/2015 Results Only [facility] [phone] Joey Moore MD [address] [place] [address] Social History Tobacco Use Types Packs/Day Years [...] ? JENNIFER SANTIZO ? Accession #: ? [id number] ? : ? 1945 (Age: 70) ??F [...] confirmed the above diagnosis. End of Report [facility] 10/14/2015 10/15/2015 Joey Moore MD PATHOLOGY ORDERABLES [facility] [address] [place] [address] documented in this encounter Visit Diagnoses Not on filedocumented in this encounter Care Teams Manufacturing Technologist Relationship Specialty Start Date End Date Maya Burden MD [address] [place] [address] [place] [address] PCP - General 10/02/11 11/08/19 documented as of this encounter
--- OUTSIDE RECORDS SUMMARY | 2024-04-28 01:56 | XMS_ITS | Referral Summary ---
Author Organization [facility] Address [address] [place] [address] Care Team Providers Care Teradata Architect Name Role Phone Navid Avendaño MD Primary Care Provider [phone] Social History Tobacco Use Types Packs/Day Years Used Date Smoking Tobacco: Never Assessed Interpersonal Safety Answer Date Record ed Physically Hurt Never 02/04/2020 Verbally Threaten Not on file 02/04/2020 Sex and Gender Information Value Date Recorded Sex Assigned at Not on file Gender Identity Female 03/04/2020 7:29 EDT Sexual Orientation Not on file Plan of Treatment Not on file Care Teams Teradata Architect Relationship Specialty Start Date End Date Navid Avendaño MD [address] [place] [address] PCP - General 11/09/19
--- OUTSIDE RECORDS SUMMARY | 2024-04-28 01:56 | XMS_ITS | Encounter Summary ---
Author Organization [facility] Address [address] [place] [address] Care Team Providers Care Clerk Name Role Phone Maya Burden MD Primary Care Provider [phone] Encounter Details Date Type Department Care Team (Late st Contact Info) Description 08/02/2012 Results Only [facility] [phone] Lucero Albarado, [address] [place], [place] [phone] Social History Tobacco Use Types Packs/Day Years [...] ? JENNIFER SANTIZO ? Accession #: ? [id number] ? : ? 1945 (Age: 67) ??F [...] fibrosis with a reactive vascular proliferation. (Dr. Coombs)/[facility] Document reviewed and electronically [...] entirely as block (1) following filtration. (Katie Nguyễn)/[facility] End of Report JUNIOR MICHAEL 08/02/2012 20:0 5 EST 08/03/2012 20:05 EST Lucero Albarado DO PATHOLOGY ORDER LUIS ENRIQUE Performing Organization Address City/State/[facility] Co de Phone Number JUNIOR MICHAEL [address] [place] [address] documented in this encounter Visit Diagnoses Not on filedocumented in this encounter Care Teams Clerk Relationship Specialty Start Date End Date Maya Burden MD [address] [place] [address] [place] [address] PCP - General 10/02/11 11/08/19 documented as of this encounter
--- OUTSIDE RECORDS SUMMARY | 2024-04-28 01:56 | XMS_ITS | Encounter Summary ---
Author Organization [facility] Address [address] [place] [address] Care Team Providers Care Pediatric Hospitalist Name Role Phone Maya Burden MD Primary Care Provider [phone] Encounter Details Date Type Department Care Team (Latest Contact Info) Description 07/04/2018 12:10 EST - 07/04/2018 23:59 EST Hospital Encounter [address] [address] Unknown, Provider, Discharge Disposition: Home or Self Care Social History Tobacco Use Types Packs/Day Years Used Date Smoking Tobacco: Never Assessed Sex and Gender Information Value Date Recorded Sex Assigned at Not on file Gender Identity Female 03/04/2020 7:29 EDT Sexual Orientation Not on file documented as of this encounter Discharge Disposition Disposition Code Departure Means Destination Home or Self Half-Way documented in this encounter Plan of Treatment Not on file documented as of this encounter Visit Diagnoses Not on filedocumented in this encounter Care Teams Pediatric Hospitalist Relationship Specialty Start Date End Date Maya Burden MD [address] [place] [address] [place] [address] PCP - General 10/02/11 11/08/19 documented as of this encounter
--- OUTSIDE RECORDS SUMMARY | 2024-04-28 01:56 | XMS_ITS | Encounter Summary ---
Author Organization [facility] Address [address] [place] [address] Care Team Providers Care Credit Risk Manager Name Role Phone Maya Gambino MD Primary Care Provider [phone] Encounter Details Date Type Department Care Team (Late st Contact Info) Description 01/15/2015 Results Only [facility] [phone] Maya Gambino MD [address] [place] [address] [place] [address] Social History Tobacco Use Types [...] ? JENNIFER SANTIZO ? Accession #: ? [id number] : ? 1945 (Age: 69) ??F ?Collect [...] electronically signed by: ? YONNY JOHNSON MD [facility] ? Report Date: ??01/25/2015 17:41 End of Report [facility] 01/15/2015 01/16/2015 Maya Gambino MD PATHOLOGY ORDERABLES Performing Organization Address City/State/[facility] Co de Phone Number [facility] [address] [place] [address] documented in this encounter Visit Diagnoses Not on filedocumented in this encounter Care Teams Credit Risk Manager Relationship Specialty Start Date End Date Maya Gambino MD [address] [place] [address] [place] [address] PCP - General 10/02/11 11/08/19 documented as of this encounter
--- OUTSIDE RECORDS SUMMARY | 2024-04-28 01:56 | XMS_ITS | Encounter Summary ---
Author Organization [facility] Address [address] [place] [address] Care Team Providers Care Securities And Real Estate Director Name Role Phone Maya Burden MD Primary Care Provider [phone] Encounter Details Date Type Department Care Team (Latest Contact Info) Description 11/11/2018 11:18 EDT - 11/11/2018 23:59 EDT Hospital Encounter [address] [address] Unknown, Provider, Discharge Disposition: Home or Self Care Social History Tobacco Use Types Packs/Day Years Used Date Smoking Tobacco: Never Assessed Sex and Gender Information Value Date Recorded Sex Assigned at Not on file Gender Identity Female 03/04/2020 7:29 EDT Sexual Orientation Not on file documented as of this encounter Discharge Disposition Disposition Code Departure Means Destination Home or Self Assisted documented in this encounter Plan of Treatment Not on file documented as of this encounter Visit Diagnoses Not on filedocumented in this encounter Care Teams Securities And Real Estate Director Relationship Specialty Start Date End Date Maya Burden MD [address] [place] [address] [place] [address] PCP - General 10/02/11 11/08/19 documented as of this encounter
--- OUTSIDE RECORDS SUMMARY | 2024-04-28 01:56 | XMS_ITS | Encounter Summary ---
Author Organization [facility] Address [address] [place] [address] Care Team Providers Care Wax Room Supervisor Name Role Phone Maya Burden MD Primary Care Provider [phone] Encounter Details Date Type Department Care Team (Late st Contact Info) Description 02/29/2012 Results Only [facility] [phone] Lucero Albarado, [address] [place], [place] [phone] Social History Tobacco Use Types Packs/Day Years [...] ? JENNIFER SANTIZO ? Accession #: ? [id number] ? : ? 1945 (Age: 66) ??F [...] PATHOLOGY ORDER LUIS ENRIQUE JUNIOR [facility]HA[facility] [address] [place] [address] documented in this encounter Visit Diagnoses Not on filedocumented in this encounter Care Teams Wax Room Supervisor Relationship Specialty Start Date End Date Maya Burden MD [address] [place] [address] [place] [address] PCP - General 10/02/11 11/08/19 documented as of this encounter
--- OUTSIDE RECORDS SUMMARY | 2024-04-28 01:56 | XMS_ITS | Encounter Summary ---
Author Organization [facility] Address [address] [place] [address] Care Team Providers Care Lead Programmer Analyst Name Role Phone Maya Burden MD Primary Care Provider [phone] Encounter Details Date Type Department Care Team (Late st Contact Info) Description 01/26/2019 Results Only [facility] [phone] Edgar Lovett MD [address] [place] [address] [place] [address] Social History Tobacco Use Types Packs/Day Years [...] ? JENNIFER SANTIZO ? Accession #: ? [id number] ? : ? 1945 (Age: 73) ??F [...] Interpretation Description Oncotype DX assay performed by [employer] The OncotypeDX breast cancer assay was requested by the patient and Dr. Edgar Lovett. ??The assay is intended for newly diagnosed patients with Stage I or II, node negative, estrogen receptor positive breast cancer. ??The assay uses RT-PCR to determine the expression of 21 genes in formalin-fixed paraffin-embedded tumor tissue. A paraffin-embedded tissue block ([id number], A7) was sent to [employer] for testing. ??The reported recurrence score was [...] Report [facility] 01/26/2019 01/26/2019 15: 17 EDT Edgar Lovett MD PATHOLOGY ORDERABLES [facility] [address] [place] [address] documented in this encounter Visit Diagnoses Not on filedocumented in this encounter Care Teams Lead Programmer Analyst Relationship Specialty Start Date End Date Maya Burden MD [address] [place] [address] [place] [address] PCP - General 10/02/11 11/08/19 documented as of this encounter
--- OUTSIDE RECORDS SUMMARY | 2024-04-28 01:56 | XMS_ITS | Encounter Summary ---
Author Organization [facility] Address [address] [place] [address] Care Team Providers Care Area Loss Prevention Manager Name Role Phone Maya Burden MD Primary Care Provider [phone] Encounter Details Date Type Department Care Team (Late st Contact Info) Description 04/06/2012 Results Only [facility] [phone] Lucero Albarado, [address] [place], [place] [id number] Social History Tobacco Use Types Packs/Day Years [...] ? JENNIFER SANTIZO ? Accession #: ? [id number] ? : ? 1945 (Age: 66) ??F [...] entirely submitted as (C). ??(Nuria Chadwick)/[facility] End of Report [facility] 04/06/2012 04/07/2012 16: 05 EDT Lucero Albarado DO PATHOLOGY ORDER LUIS ENRIQUE [facility] [address] [place] [address] documented in this encounter Visit Diagnoses Not on filedocumented in this encounter Care Teams Area Loss Prevention Manager Relationship Specialty Start Date End Date Maya Burden MD [address] [place] [address] [place] [address] PCP - General 10/02/11 11/08/19 documented as of this encounter
--- OUTSIDE RECORDS SUMMARY | 2024-04-28 01:56 | XMS_ITS | Encounter Summary ---
Author Organization [facility] Address [address] [place] [address] Care Team Providers Care Search Engine Optimization Consultant Name Role Phone Maya Burden MD Primary Care Provider [phone] Encounter Details Date Type Department Care Team (Latest Contact Info) Description 02/07/2015 9:36 EDT - 02/07/2015 23:59 EDT Hospital Encounter [facility] - [address] [address] Unknown, Provider, Discharge Disposition: Home or Self [...] on filedocumented in this encounter Care Teams Search Engine Optimization Consultant Relationship Specialty Start Date End Date Maya Burden MD [address] [place] [address] [place] [address] PCP - General 10/02/11 11/08/19 documented as of this encounter
--- OUTSIDE RECORDS SUMMARY | 2024-04-28 01:56 | XMS_ITS | Encounter Summary ---
Author Organization [facility] Address [address] [place] [address] Care Team Providers Care Baseball Pitcher Name Role Phone Navid Avendaño MD Primary Care Provider [phone] Encounter Details Date Type Department Care Team (Late st Contact Info) Description 02/26/2020 Lab Requisition [facility] Pathology & Laboratory Medicine - [address] [address] Outr Resulting Lab, Provider Social History Tobacco [...] Factor <8.6 <12.0 IU/mL 02/26/2020 21:25 EDT [facility] Blood VENOUS BLOOD / Unknown 02/26/2020 12:05 EDT 02/26/2020 21:12 EDT Provider Outr Resulting Lab CHEMISTRY & BLOOD GAS ORDERABLES Performing Organization Address [facility] de Phone Number [facility] [address] [place] [address] * (ABNORMAL) ANTI NUCLEAR AB (LATRELL), IFA (02/26/2020 12:05 EDT) LATRELL Interpretation Positive(A) Negative 02/27/2020 13:44 EDT [facility] Comment: For titers [...] Pattern 1 1:160 Homogeneous 02/27/2020 13:44 EDT [facility] Blood VENOUS BLOOD / Unknown 02/26/2020 12:05 EDT 02/26/2020 21:12 EDT Narrative [facility] - 02/27/2020 13:44 EDT Results were obtained with the [employer] NOVA Lite HEp-2 LATRELL Kit by indirect immunofluorescence. Provider Outr Resulting Lab IMMUNOLOGY A ND SEROLOGY ORDERABLES Performing Organization Address [facility] Co de Phone Number [facility] [address] [place] [address] documented in this encounter Visit Diagnoses Not on filedocumented in this encounter Care Teams Baseball Pitcher Relationship Specialty Start Date End Date Navid Avendaño MD [address] [address] PCP - General 11/09/19 documented as of this encounter
--- OUTSIDE RECORDS SUMMARY | 2024-04-28 01:56 | XMS_ITS | Encounter Summary ---
Author Organization [facility] Address [address] [place] [address] Care Team Providers Care Sheet Metal Worker Supervisor Name Role Phone Maya Gambino MD Primary Care Provider [phone] Encounter Details Date Type Department Care Team (Late st Contact Info) Description 03/13/2015 Results Only [facility] [phone] Lucero Albarado, [address] [place], [place] [phone] Social History Tobacco Use Types Packs/Day Years [...] ? JENNIFER SANTIZO ? Accession #: ? [id number] ? : ? 1945 (Age: 69) ??F [...] a scant amount of amorphous contents. ??(Dr. Coombs)/[facility] Document reviewed and electronically signed by: [...] Domingo 03/15/2015 9:31 AM End of Report [facility] 03/13/2015 16:0 8 EDT 03/14/2015 16:08 EDT Lucero Albarado DO PATHOLOGY ORDER LUIS ENRIQUE [facility] [address] [place] [address] documented in this encounter Visit Diagnoses Not on filedocumented in this encounter Care Teams Sheet Metal Worker Supervisor Relationship Specialty Start Date End Date Maya Gambino MD [address] [place] [address] [place] [address] PCP - General 10/02/11 11/08/19 documented as of this encounter
--- OUTSIDE RECORDS SUMMARY | 2024-04-28 01:56 | XMS_ITS | Encounter Summary ---
Author Organization [facility] Address [address] [place] [address] Care Team Providers Care Machine Set Up Operator Name Role Phone Navid Avendaño MD Primary Care Provider [phone] Reason for Visit * Reason Comments Joint Pain * Consult (Routine) - Closed Specialty Diagnoses / Procedures [facility] Referred To Contact Rheumatology Diagnoses Joint pain Navid Avendaño MD [address] [place] [address] [facility] Rheumatology [address] [place] [address] Referral ID Status Reason Start Date Expiration Date Visits Re quested Visits Authorized [id number] Closed 1 1 Encounter Details Date Type Department Care Team (Late st Contact Info) Description 05/09/2020 14:15 EST Office Visit [facility] Rheumatology [address] [place] [address] Debi Coleman MD [address] [place] [address] [place] [address] LATRELL positive (Primary Dx); Ulnar [...] For patients, please refer to guidance in Homeschooling Through the Ages on how to locate information. Generally this [...] laterality documented in this encounter Care Teams Machine Set Up Operator Relationship Specialty Start Date End Date Navid Avendaño MD [address] [place] [address] PCP - General 11/09/19 documented as of this encounter
--- OUTSIDE RECORDS SUMMARY | 2024-04-28 01:56 | XMS_ITS | Encounter Summary ---
Author Organization [facility] Address [address] [place] [address] Care Team Providers Care Purchase Request Editor Name Role Phone Maya Gambino MD Primary Care Provider [phone] Encounter Details Date Type Department Care Team (Late st Contact Info) Description 02/07/[address] [facility] [phone] Joey Moore MD [address] [place] [address] Social History Tobacco Use Types Packs/Day Years [...] ? JENNIFER SANTIZO ? Accession #: ? [id number] ? : ? 1945 (Age: 69) ??F [...] [place] 02/08/2015 12:29 PM End of Report [facility] 02/07/2015 9:20 EDT 02/07/2015 9:20 EDT Joey Moore MD PATHOLOGY ORDERABLES Performing Organization Address City/State/[facility] [[email or web address]] Co de Phone Number [facility] [address] [place] [address] documented in this encounter Visit Diagnoses Not on filedocumented in this encounter Care Teams Purchase Request Editor Relationship Specialty Start Date End Date Maya Gambino MD [address] [place] [address] [place] [address] PCP - General 10/02/11 11/08/19 documented as of this encounter
--- OUTSIDE RECORDS SUMMARY | 2024-04-28 01:56 | XMS_ITS | Encounter Summary ---
Author Organization [facility] Address [address] [place] [address] Care Team Providers Care Dry Wall Applicator Name Role Phone Navid Avendaño MD Primary Care Provider [phone] Encounter Details Date Type Department Care Team (Late st Contact Info) Description 04/04/2020 Lab Requisition [facility] Pathology & Laboratory Medicine - [facility] [address] [place] [address] Outr Resulting Lab, Provider Social History Tobacco [...] 11:13 EDT) Hold Hold 04/04/2020 21:45 EDT [facility] Blood VENOUS BLOOD / Unknown 04/04/2020 11:13 EDT 04/04/2020 20:44 EDT Provider Outr Resulting Lab LAB INFO SER VICE AND SUPPORT & PHONE RESULT Performing Organization Address [facility]/ZIP Co de Phone Number [facility] [address] [place] [address] * (ABNORMAL) SPEP, INCLUDES QUANTITATION OF MONOCLONAL SPIKE (04/04/2020 11:13 EDT) Total Protein 6.8 6.3 - 8.2 g/dL 04/05/2020 12:52 EDT [facility] Albumin % 57.9 55.8 - 66.1 % 04/05/2020 12:52 EDT [facility] Alpha-1 % 4.2 2.9 - 4.9 % 04/05/2020 12:52 EDT [facility] Alpha-2 % 11.1 7.1 - 11.8 % 04/05/2020 12:52 EDT [facility] Beta % 14.3(H) 8.4 - 13.1 % 04/05/2020 12:52 EDT [facility] Gamma % 12.5 11.1 - 18.8 % 04/05/2020 12:52 EDT [facility] SPEP Comment No apparent monoclonal protein seen on serum electrophoresis 04/05/2020 12:52 EDT [facility] Comment:See scanned/suppleme ntary report. Blood VENOUS BLOOD / Unknown 04/04/2020 11:13 EDT 04/04/2020 20:44 EDT Provider Outr Resulting Lab CHEMISTRY & BLOOD GAS ORDERABLES [facility] [address] [place] [address] * HAPTOGLOBIN (04/04/2020 11:13 EDT) Haptoglobin 185 32 - 197 mg/dL 04/05/2020 9:18 EDT [facility] Blood VENOUS BLOOD / Unknown 04/04/2020 11:13 EDT 04/04/2020 20:44 EDT Provider Outr Resulting Lab CHEMISTRY & BLOOD GAS ORDERABLES [facility] [address] [place] [address] documented in this encounter Visit Diagnoses Not on filedocumented in this encounter Care Teams Dry Wall Applicator Relationship Specialty Start Date End Date Navid Avendaño MD [address] [place] [address] PCP - General 11/09/19 documented as of this encounter
--- OUTSIDE RECORDS SUMMARY | 2024-04-28 01:56 | XMS_ITS | Encounter Summary ---
Author Organization [facility] Address [address] [place] [address] Care Team Providers Care Industrial Tech Instructor Name Role Phone Navid Avendaño MD Primary Care Provider [phone] Encounter Details Date Type Department Care Team (Late st Contact Info) Description 02/28/2020 Lab Requisition [facility] Pathology & Laboratory Medicine - [address] [address] Outr Resulting Lab, Provider Social History Tobacco [...] Stranded) 75.3(H) <30.0 IU/mL 02/29/2020 12:01 EDT [facility] Comment: ? Negative: ??<30.0 IU/mL ? Borderline Positive: ??30.0 - 75.0 IU/mL ? Positive: ??>75.0 IU/mL Results were obtained with the [employer] QUANTA Lite dsDNA SC HOSSEIN assay on the [employer] DSX. Blood VENOUS BLOOD / Unknown 02/26/2020 12:05 EDT 02/28/2020 16:10 EDT Provider Outr Resulting Lab IMMUNOLOGY A ND SEROLOGY ORDERABLES [facility] [address] [place] [address] documented in this encounter Visit Diagnoses Not on filedocumented in this encounter Care Teams Industrial Tech Instructor Relationship Specialty Start Date End Date Navid Avendaño MD [address] [place] [address] PCP - General 11/09/19 documented as of this encounter
--- OUTSIDE RECORDS SUMMARY | 2024-04-28 01:56 | XMS_ITS | Encounter Summary ---
Author Organization [facility] Address [address] [place] [address] Care Team Providers Care Room Service Runner Name Role Phone Maya Burden MD Primary Care Provider [phone] Encounter Details Date Type Department Care Team (Latest Contact Info) Description 01/26/2019 13:54 EDT - 01/26/2019 13:56 EDT Hospital Encounter [facility] - [address] [address] Edgar Carreon MD [address] [place] [address] [place] [address] Discharge Disposition: Home or Self Care Social [...] on filedocumented in this encounter Care Teams Room Service Runner Relationship Specialty Start Date End Date Maya Burden MD [address] [place] [address] [place] [address] PCP - General 10/02/11 11/08/19 documented as of this encounter
--- OUTSIDE RECORDS SUMMARY | 2024-04-28 01:56 | XMS_ITS | Encounter Summary ---
Author Organization [facility] Address [address] [place] [address] Care Team Providers Care Knockout Worker Name Role Phone Unavailable Primary Care Provider Unavailabl e Encounter Details Date Type Department Care Team (Late st Contact Info) Description 11/09/2008 Orders Only [facility] Laboratory Services - [facility] ([facility]) [address] [place], [place] [id number] Maya Burden MD [facility] [place] [address] Social History Tobacco Use Types [...] - GENER AL ORDERABLES [facility] [address] [place] [address] * CYTOPATHOLOGY (11/09/2008 0:00 EDT) Pathology Report: CYTOPATHOLOGY REPORT ? Reports generated via electronic interface contain original data; ? however they are lacking the format of the original report. ? Caution should be taken when reading/interpreti ng unformatted reports. ? Name: ? JENNIFER SANTIZO ? Accession #: ? [id number] ? : ? 1945 (Age: 63) ??F [...] Burden MD PATHOLOGY ORDERABLES Performing Organization Address City/State/[facility] Co de Phone Number [facility] [address] [place] [address] documented in this encounter Visit Diagnoses Not on filedocumented in this encounter
--- OUTSIDE RECORDS SUMMARY | 2024-04-28 01:56 | XMS_ITS | Encounter Summary ---
Author Organization [facility] Address [address] [place] [address] Care Team Providers Care Invas Tech Name Role Phone Navid Avendaño MD Primary Care Provider [phone] Encounter Details Date Type Department Care Team (Late st Contact Info) Description 06/14/2020 Orders Only [facility] - [facility] Rheumatology [address] [place] [address] Lucy Shin RN Ulnar nerve compression, unspecified [...] Primary documented in this encounter Care Teams Invas Tech Relationship Specialty Start Date End Date Navid Avendaño MD [address] [place], [place] [address] PCP - General 11/09/19 documented as of this encounter
--- OUTSIDE RECORDS SUMMARY | 2024-04-28 01:56 | XMS_ITS | Encounter Summary ---
Author Organization [facility] Address [address] [place] [address] Care Team Providers Care Parts Room Assistant Name Role Phone Maya Burden MD Primary Care Provider Encounter Details Date Type Department Care Team (Latest Contact Info) Description 10/01/2014 12:21 EDT - 10/01/2014 23:59 EDT Hospital Encounter [facility] - [address] [address] Unknown, Provider, Discharge Disposition: Home or Self Care Social History Tobacco Use Types Packs/Day Years Used Date Smoking Tobacco: Never Assessed Sex and Gender Information Value Date Recorded Sex Assigned at Not on file Gender Identity Female 03/04/2020 7:29 EDT Sexual Orientation Not on file documented as of this encounter Discharge Disposition Disposition Code Departure Means Destination Home or Self Long-Term documented in this encounter Plan of Treatment Not on file documented as of this encounter Visit Diagnoses Not on filedocumented in this encounter Care Teams Parts Room Assistant Relationship Specialty Start Date End Date Maya Burden MD [address] [place] [address] [place] [address] PCP - General 10/02/11 11/08/19 documented as of this encounter
--- OUTSIDE RECORDS SUMMARY | 2024-04-28 01:56 | XMS_ITS | Encounter Summary ---
Author Organization [facility] Address [address] [place] [address] Care Team Providers Care Hedis Registered Nurse Rn Name Role Phone Maya Burden MD Primary Care Provider [phone] Encounter Details Date Type Department Care Team (Late st Contact Info) Description 11/11/2018 Results Only [facility] [phone] Sonya Short MD [facility] [place], [place] [address] Social History Tobacco Use Types Packs/Day Years [...] ? JENNIFER SANTIZO ? Accession #: ? [id number] ? : ? 1945 (Age: 73) ??F [...] will be issued in separate procedure reports. Production Painter slides of this case were reviewed at [...] Tissue submitted: Paraffin embedded tissue block labelled [id number] (#1) from [facility]. Fixative: ??Formalin ??(This immunohistochemical assay is intended for paraffin-embedded tissue fixed in 10% neutral buffered formalin for 6-72 hours; 18-24 hours with maximum tissue thickness of 3-4 millimeters is recommended for best assay performance. ??Her2 should not be performed on alcohol fixed tissues.) The assay was performed under appropriate conditions according to the truck bracer's instructions with appropriate assay and tissue controls using an Anti-Her2 (4B5) Rabbit Monoclonal Antibody ([place]). Her2 IHC Scoring Guidelines (invasive tumor component [...] performance characteristics have been determined by [facility] and/or by the referring laboratory. ??The positive [...] Tissue submitted: Paraffin embedded tissue block labelled [id number] (#1) from [facility]. Immunohistochemical assays for estrogen receptors (SP1, [place]) and progesterone receptors (16, [place]) have been [...] Recommendations for IHC testing of ER and CO. J Clin Oncol 2010;28:4114-1516. NOTE: ??One or more of the reagents [...] performance characteristics have been determined by [facility] and/or by the referring laboratory. ??The positive [...] confirmed the above diagnosis. End of Report [facility] 11/11/2018 16:0 5 EDT 11/11/2018 16:05 EDT Sonya Short MD PATHOLOGY ORDERA ROGER [facility] [address] [place] [address] documented in this encounter Visit Diagnoses Not on filedocumented in this encounter Care Teams Hedis Registered Nurse Rn Relationship Specialty Start Date End Date Maya Burden MD [address] [place] [address] [place] [address] PCP - General 10/02/11 11/08/19 documented as of this encounter
--- OUTSIDE RECORDS SUMMARY | 2024-04-28 01:56 | XMS_ITS | Encounter Summary ---
Author Organization [facility] Address [address] [place] [address] Care Team Providers Care Billing Spec Name Role Phone Unavailable Primary Care Provider Unavailabl e Encounter Details Date Type Department Care Team (Late st Contact Info) Description 09/23/2011 Results Only [facility] Laboratory Services - [facility] ([facility] [address] [place], [place] [address] Sid Seals MD [address] [place] [address] Social History Tobacco Use Types [...] ? JENNIFER SANTIZO ? Accession #: ? [id number] ? : ? 1945 (Age: 66) ??F [...] MD PATHOLOGY ORDERABLES [facility] [address] [place] [address] documented in this encounter Visit Diagnoses Not on filedocumented in this encounter
--- OUTSIDE RECORDS SUMMARY | 2024-04-28 01:56 | XMS_ITS | Encounter Summary ---
Author Organization [facility] Address [address] [place] [address] Care Team Providers Care Supervisor [employer] Name Role Phone Maya Burden MD Primary Care Provider [phone] Encounter Details Date Type Department Care Team (Late st Contact Info) Description 02/25/2012 Results Only [facility] [phone] Lucero Albarado, [address] [place], [place] [id number] Social History Tobacco Use Types Packs/Day Years [...] ? JENNIFER SANTIZO ? Accession #: ? [id number] ? : ? 1945 (Age: 66) ??F [...] Interpretation: ? Nasal tip, squamous cell cancer: [id number]. ?? Nasal tip, squamous cell cancer: ??12 [...] and FS1D, central sections, 12-6 o'clock (Nuria Chadwick)/[facility] End of Report [facility] 02/25/2012 02/25/2012 16: 29 EDT Lucero Albarado DO PATHOLOGY ORDER LUIS ENRIQUE Performing Organization Address City/State/[facility] Co de Phone Number [facility] [address] [place] [address] documented in this encounter Visit Diagnoses Not on filedocumented in this encounter Care Teams Supervisor [employer] Relationship Specialty Start Date End Date Maya Burden MD [address] [place] [address] [place] [address] PCP - General 10/02/11 11/08/19 documented as of this encounter
--- OUTSIDE RECORDS SUMMARY | 2024-04-28 01:56 | XMS_ITS | Encounter Summary ---
Author Organization [facility] Address [address] [place] [address] Care Team Providers Care Assurance Analyst Name Role Phone Navid Avendaño MD Primary Care Provider [phone] Encounter Details Date Type Department Care Team (Late st Contact Info) Description 05/22/2020 Results Only [facility] Main [address] [address] Unknown, Provider, Social History Tobacco Use Types [...] 05/22/2020 7:42 EST 05/23/2020 6:00 EST Narrative [facility] - 05/24/2020 12:12 EST ----- ------- Name: JENNIFER SANTIZO ?: [birth year] ?Age/Sex: 75/F ?Unit#: [id number] ? Loc: LAB.POP ? Status: REG REF ?? Reg Date: 05/23/20 ? Pt.Phone Number: ? ----- ------- Specimen: [id number] ? STATUS: SOUT ?Spec Date:05/22/20 ? Physician [...] specimen (RECTAL POLYPS X 3) ? CPT: 24210 ?? Units: ??7 ?FINAL DIAGNOSIS ? A. [...] of hyperplastic polyp(s). ----- ------- ?COMMENT ? [id number] ----- ------- Patient: JENNIFER SANTIZO ?#[id number] ? (Continued) ----- ------- Specimen: [id number] ? Received: 05/23/20 ?(Continued) ? GROSS DESCRIPTION [...] confirmed the above diagnosis. Test Performed by [facility], [address] [place] [address] Real Estate Developer: Leilani Gaytan MD PHD ----- ------- Provider Unknown MD PATHOLOGY ORDERABLES Performing Organization Address City/State/[facility] Co de Phone Number [facility] [address] [place] [address] documented in this encounter Visit Diagnoses Not on filedocumented in this encounter Care Teams Assurance Analyst Relationship Specialty Start Date End Date Navid Avendaño MD [address] [place], [place] [address] PCP - General 11/09/19 documented as of this encounter
--- OUTSIDE RECORDS SUMMARY | 2024-04-28 01:56 | XMS_ITS | Encounter Summary ---
Author Organization [facility] Address [address] [place] [address] Care Team Providers Care Professional Sports Scout Name Role Phone Maya Burden MD Primary Care Provider [phone] Encounter Details Date Type Department Care Team (Late st Contact Info) Description 02/08/2012 Results Only [facility] [phone] Lucero Albarado, [address] [place], [place] [address] Social History Tobacco Use Types Packs/Day Years [...] ? JENNIFER SANTIZO ? Accession #: ? [id number] ? : ? 1945 (Age: 66) ??F [...] (B2) smaller shave bisected. ??(Nuria Chadwick)/[facility] End of Report [facility] 02/08/2012 02/09/2012 16: 07 EDT Lucero Albarado DO PATHOLOGY ORDER LUIS ENRIQUE [facility] [address] [place] [address] documented in this encounter Visit Diagnoses Not on filedocumented in this encounter Care Teams Professional Sports Scout Relationship Specialty Start Date End Date Maya Burden MD [address] [place] [address] [place] [address] PCP - General 10/02/11 11/08/19 documented as of this encounter
--- OUTSIDE RECORDS SUMMARY | 2024-04-28 01:56 | XMS_ITS | Encounter Summary ---
Author Organization [facility] Address [address] [place] [address] Care Team Providers Care Ceramics Teacher Name Role Phone Maya Burden MD Primary Care Provider [phone] Encounter Details Date Type Department Care Team (Late st Contact Info) Description 01/27/2012 Results Only [facility] [phone] Lucero Albarado, [address] [place], [place] [address] Social History Tobacco Use Types Packs/Day Years [...] ? JENNIFER SANTIZO ? Accession #: ? [id number] ? : ? 1945 (Age: 66) ??F [...] (A1) papule bisected, and (A2) aggregate. ??(Nuria Chadwick)/[facility] End of Report [facility] 01/27/2012 01/28/2012 16: 12 EDT Lucero Albarado DO PATHOLOGY ORDER LUIS ENRIQUE [facility] [address] [place] [address] documented in this encounter Visit Diagnoses Not on filedocumented in this encounter Care Teams Ceramics Teacher Relationship Specialty Start Date End Date Maya Burden MD [address] [place] [address] [place] [address] PCP - General 10/02/11 11/08/19 documented as of this encounter
--- OUTSIDE RECORDS SUMMARY | 2024-04-28 01:56 | XMS_ITS | Encounter Summary ---
Author Organization [facility] Address [address] [place] [address] Care Team Providers Care Patient Service Rep Name Role Phone Maya Burden MD Primary Care Provider [phone] Encounter Details Date Type Department Care Team (Late st Contact Info) Description 12/07/2018 Results Only [facility] [phone] Sonya Short MD [facility] [facility] [address] [place], [place] [id number] Social History Tobacco Use Types Packs/Day Years [...] ? JENNIFER SANTIZO ? Accession #: ? [id number] ? : ? 1945 (Age: 73) ??F [...] Tumor Location: Lower inner quadrant; 7 o'clock [place] Combined Histologic Scores: ?Tubular differentiation: Score 2 [...] definite Lymph nodes: ?2/6 (positive/total number examined) Freeman nodes: ?? 5 (examined and included in total) ? 1 node with macrometastases ? 0 nodes with micrometastases ? 1 node with isolated tumor cells only ER/WI: ?ER positive (Greater than 90%); WI positive (Greater than 90%) ([id number]) Her2/mauricio: ? Negative 1+ by immunohistochemistry ([id number]) FINAL PATHOLOGIC DIAGNOSIS: A. ??BREAST, LEFT, TOTAL [...] tissue with no specific pathologic features. Comment: Food Services Manager slides of this case were reviewed at intradepartmental consultation conference. ?? Document reviewed and electronically signed by: CHANA RICHARDSON MD Report ??Date: 12/13/2018 16:28 By the signature above, the attending physician certifies that he/she has personally conducted a gross and/or microscopic examination of the described specimens and rendered or confirmed the above diagnosis. Specimen(s) Received: A. ??Mastectomy, left; suture medial B. ??Freeman lymph node #1 C. ??Lymph node D. ??Freeman lymph node #2 E. ??Freeman lymph node #3 F. ??Medial skin edge; [...] are identified on the epidermal surface. ? Food Services Manager sections are submitted as follows: INK MERINO Black-deep Blue-superficial ? BLOCK MERINO A1- ??nipple, perpendicular sections A2- ??transverse section of nipple with lactiferous sinuses A3- ??deep margin nearest to tumor (no tumor included) A4- ??superficial margin close to tumor (no tumor included) A5- ??tumor with superficial margin A6- ??section of tumor and additional patel firm focus A7-A13- ??sections of tumor A14-A15- ??retail field representative sections of upper inner quadrant A16-A17- ??retail field representative sections of lower inner quadrant A18-A19- ??retail field representative sections of lower outer quadrant A20-A21- ??retail field representative sections of upper outer quadrant A22- ??retail field representative sections of area of fibrosis under [...] with short stitch superior long stitch medial. Food Services Manager sections are submitted as F1-F2. Micaela Powell 12/09/2018 3:08 PM End of Report [facility] 12/07/2018 9:02 EDT 12/08/2018 9:02 EDT Sonya Short MD PATHOLOGY [facility] Organization Address City/State/ZIP Co de Phone Number [facility] [address] [place] [address] documented in this encounter Visit Diagnoses Not on filedocumented in this encounter Care Teams Patient Service Rep Relationship Specialty Start Date End Date Maya Burden MD [address] [place] [address] [place] [address] PCP - General 10/02/11 11/08/19 documented as of this encounter
--- OUTSIDE RECORDS SUMMARY | 2024-04-28 01:57 | XMS_ITS | Encounter Summary ---
[place] [address] Care Team Providers Care Quad Stayer Name Role Phone Navid Avendaño MD Primary Care Provider [phone] [phone] Reason for Visit * Reason Comments IV Medication Venofer * Treatment/Therapy Plan Authorization (Routine) - Closed Specialty Diagnoses / Procedures Referred By Contac t Referred To Contact Diagnoses Iron deficiency anemia, unspecified iron deficiency anemia type Ethel Christianson RN Referral ID Status Reason Start Date Expiration Date Visits Re quested Visits Authorized [id number] Closed 11/13/2020 11/13/2021 99 99 Encounter Details Date Type Department Care Team (Late st Contact Info) Description 12/03/2020 2:00 PM EDT Infusion Hematology Oncology at [address] [phone] Iron deficiency anemia, unspecified iron [...] and BSA by Delmis Dewey RN and [facility]. REACTIONS (DESCRIPTION, TIME, INTERVENTION AND EFFECTIVENESS) none [...] EST Office Visit Radiation Oncology at [address] [phone] Patsy Shelton MD [facility] [address] [place] [address] documented as of this encounter Visit Diagnoses [...] 25 mg, Oral, ONCE, 1 dose, On Wed12/03/20 at 1345, Give Benadryl 25 mg PO prior to the patient's Venofer infusion., Routine Given 12/03/2020 2:21 PM EDT 25 mg hydrocortisone sodium succinate (pf) (Solu-CORTEF) (100 mg/2 mL) injection 100 mg 100 mg, Intravenous, ONCE, 1 dose, On Wed12/03/20 at 1345, Give prior to patient's infusion. Given 12/03/2020 2:21 PM EDT 100 mg iron sucrose (Venofer) 300 mg in sodium chloride 0.9% 115 mL infusion 300 mg, Intravenous, ONCE, 1 dose, On Wed12/03/20 at 1345, Administer over 90 Minutes, Patients should be closely monitored for signs of hypersensitivity during and for at least 30 min after each administration. The observation period is not needed for patients who have demonstrated tolerability. New Bag 12/03/2020 2:36 PM EDT 300 mg 76.7 mL/hr documented in this encounter Care Teams Quad Stayer Relationship Specialty Start Date End Date Navid Avendaño MD [address] [facility] 1 [place] [address] PCP - General Family Medicine 01/24/19 documented as of this encounter
--- OUTSIDE RECORDS SUMMARY | 2024-04-28 01:57 | XMS_ITS | Encounter Summary ---
Author Organization [facility] Address [facility] [address] [address] Care Team Providers Care Peanut Salter Name Role Phone Navid Avendaño MD Primary Care Provider [phone] Encounter Details Date Type Department Care Team [...] EST Office Visit Radiation Oncology at [address] [phone] Patsy Shelton MD [facility] [place] [address] documented as of this encounter Visit Diagnoses Not on filedocumented in this encounter Care Teams Peanut Salter Relationship Specialty Start Date End Date Navid Avendaño MD [address] [place], [place] [address] PCP - General Family Medicine 01/24/19 documented as of this encounter
--- OUTSIDE RECORDS SUMMARY | 2024-04-28 01:57 | XMS_ITS | Encounter Summary ---
Author Organization [facility] [place] [address] Care Team Providers Care Winch Runner Name Role Phone Navid Avendaño MD Primary Care Provider [phone] [phone] Encounter Details Date Type Department Care Team (Late st Contact Info) Description 11/13/2020 1:00 PM EDT Office Visit Hematology/Oncology at [address] [phone] Ethel Christianson RN Breast cancer, stage 2, [...] this encounter Progress Notes * Ethel Christianson, CHOKER SETTER - 11/13/2020 1:00 PM EDT Images from the original note were not included. 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 Santizo returns to the [facility] [place] [...] Tamoxifen alone A ??- Outside slide(s) labeled [id number], collection date 11/11/2018. Breast, left, core needle [...] report, 1+/Negative B ??- Outside slide(s) labeled [id number], collection date 12/07/2018. 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 - Ductal carcinoma in-situ (DCIS), high grade with comedonecrosis. - See Synoptic report. B - Lymph node, [place] #1, left axillary, excision (4 slides labeled B)- - Metastatic carcinoma to one of two lymph nodes. - The anita metastasis measures 1.9 cm. - Extranodal invasion is present. 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 C - Lymph node, left axilla, excision (3 slides labeled C)- - One benign node. D - Lymph node, [place] #2, left axillary, excision (1 slide labeled D)- - One benign node. E - Lymph node, [place] #3, left axillary, excision (2 slides labeled E)- - Two benign nodes. F - Medial Skin edge, excision (2 slides labeled F) - - Benign skin and subcutis. Specimen ?Procedure: ??Total mastectomy ?Specimen Laterality: ?? Left Tumor ?Histologic Type: ?? Invasive carcinoma of no special type (ductal, not ? otherwise specified) ?Histologic Type Comments: ?? with micropapillary features ?Histologic Grade (Brick Histologic Score) ? Glandular (Acinar) / Tubular [...] Lymph Nodes Examined: ?6 ? Number of [place] Nodes Examined: ?5 Pathologic Stage Classification (pTNM, [...] ER+/CO+, Her2 IHC neg, LN 2/6, DCIS, [id number] (stage IIA) Treatment: -12/07/2018 left mastectomy and [...] questions/concerns or new symptoms. 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 She was seen by speech language pathologist travel and was referred to a neurologist. Dr. [...] Tamoxifen alone A ??- Outside slide(s) labeled [id number], collection date 11/11/2018. Breast, left, core needle [...] report, 1+/Negative B ??- Outside slide(s) labeled [id number], collection date 12/07/2018. 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 - Ductal carcinoma in-situ (DCIS), high grade with comedonecrosis. - See Synoptic report. B - Lymph node, [place] #1, left axillary, excision (4 slides labeled B)- - Metastatic carcinoma to one of two lymph nodes. - The anita metastasis measures 1.9 cm. - Extranodal invasion is present. 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 C - Lymph node, left axilla, excision (3 slides labeled C)- - One benign node. D - Lymph node, [place] #2, left axillary, excision (1 slide labeled D)- - One benign node. E - Lymph node, [place] #3, left axillary, excision (2 slides labeled E)- - Two benign nodes. F - Medial Skin edge, excision (2 slides labeled F) - - Benign skin and subcutis. Specimen ?Procedure: ??Total mastectomy ?Specimen Laterality: ?? Left Tumor ?Histologic Type: ?? Invasive carcinoma of no special type (ductal, not ? otherwise specified) ?Histologic Type Comments: ?? with micropapillary features ?Histologic Grade (Brick Histologic Score) ? Glandular (Acinar) / Tubular [...] Lymph Nodes Examined: ?6 ? Number of [place] Nodes Examined: ?5 Pathologic Stage Classification (pTNM, [...] ER+/CO+, Her2 IHC neg, LN 2/6, DCIS, [id number] (stage IIA) Treatment: -12/07/2018 left mastectomy and [...] arthritis. Meanwhile she will be seen by speech language pathologist travel as well. I will see her back [...] disease. She is going to see a speech language pathologist travel in May. We may consider a trial [...] EST Office Visit Radiation Oncology at [address] [phone] Patsy Shelton MD [facility] [place] [address] documented as of this encounter Visit Diagnoses Diagnosis Breast cancer, stage 2, left Iron deficiency anemia, unspecified iron deficiency anemia type documented in this encounter Care Teams Winch Runner Relationship Specialty Start Date End Date Navid Avendaño MD [address] [facility] 1 [place] [address] PCP - General Family Medicine 01/24/19 documented as of this encounter
--- OUTSIDE RECORDS SUMMARY | 2024-04-28 01:57 | XMS_ITS | Encounter Summary ---
[place] [address] Care Team Providers Care Benchroom Shop Optician Name Role Phone Navid Avendaño MD Primary Care Provider [phone] [phone] Reason for Visit * Reason Comments IV Medication IV sucrose * Treatment/Therapy Plan Authorization (Routine) - Closed Specialty Diagnoses / Procedures Referred By Contac t Referred To Contact Diagnoses Iron deficiency anemia, unspecified iron deficiency anemia type Ethel Christianson RN Referral ID Status Reason Start Date Expiration Date Visits Re quested Visits Authorized [id number] Closed 11/13/2020 11/13/2021 99 99 Encounter Details Date Type Department Care Team (Late st Contact Info) Description 12/10/2020 1:30 PM EDT Infusion Hematology Oncology at [address] [phone] Iron deficiency anemia, unspecified iron [...] PM EST Office Visit Radiation Oncology at [address] [phone] Patsy Shelton MD [facility] [place] [address] documented as of this encounter Visit Diagnoses [...] mL/hr documented in this encounter Care Teams Benchroom Shop Optician Relationship Specialty Start Date End Date Navid Avendaño MD [address] [facility] 1 [place] [address] PCP - General Family Medicine 01/24/19 documented as of this encounter
--- OUTSIDE RECORDS SUMMARY | 2024-04-28 01:57 | XMS_ITS | Encounter Summary ---
Author Organization [facility] Address [facility] [address] [place] [address] Care Team Providers Care Asp Web Developer Name Role Phone Navid Avendaño MD Primary Care Provider [phone] [phone] Encounter Details Date Type Department Care Team (Late st Contact Info) Description 06/10/2021 Refill Hematology/Oncology at [address] [phone] Ethel Christianson, RN Hormone receptor positive malignant [...] EST Office Visit Radiation Oncology at [address] [phone] Patsy Shelton MD [facility] [place] [address] documented as of this encounter Visit Diagnoses Diagnosis 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
--- OUTSIDE RECORDS SUMMARY | 2024-04-28 01:57 | XMS_ITS | Encounter Summary ---
Author Organization [facility] [place] [address] Care Team Providers Care Consulting Technical Manager Name Role Phone Navid Avendaño MD Primary Care Provider +1 [phone] Encounter Details Date Type Department Care Team (Late Contact Info) Description 02/29/2024 12:05 AM EDT Ancillary Procedure Radiology Library at [facility] [place] [phone] Patsy Shelton MD [facility] [place] [address] Social History Tobacco Use Types Packs/Day Years [...] EST Office Visit Radiation Oncology at [address] [phone] Patsy Shelton MD [facility] [place] [address] documented as of this encounter Procedures Procedure Name Priority Date/Time Associated Diagnosis Comments FILM LIBRARY-STORAGE ONLY US BREAST Routine 02/29/2024 12:05 AM EDT documented in this encounter Results * Film Library Storage Only US Breast (02/29/2024 12:05 AM EDT) Narrative RAD - 03/02/2024 6:46 PM EDT This exam is auto-finalizing. It's purpose is for storage only. Patsy Shelton MD IMG FILM LIBRARY ORD ERABLES [place], [place] documented in this encounter Visit Diagnoses Not on filedocumented in this encounter Care Teams Consulting Technical Manager Relationship Specialty Start Date End Date Navid Avendaño MD [address] [place] [address] PCP - General Family Medicine 01/24/19 documented as of this encounter
--- OUTSIDE RECORDS SUMMARY | 2024-04-28 01:57 | XMS_ITS | Encounter Summary ---
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 Breast, left, core needle [...] report, 1+/Negative B ??- Outside slide(s) labeled [id number], collection date 12/07/2018. 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 - Ductal carcinoma in-situ (DCIS), high grade with comedonecrosis. - See Synoptic report. B - Lymph node, [place] #1, left axillary, excision (4 slides labeled B)- - Metastatic carcinoma to one of two lymph nodes. - The anita metastasis measures 1.9 cm. - Extranodal invasion is present. 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 C - Lymph node, left axilla, excision (3 slides labeled C)- - One benign node. D - Lymph node, [place] #2, left axillary, excision (1 slide labeled D)- - One benign node. E - Lymph node, [place] #3, left axillary, excision (2 slides labeled E)- - Two benign nodes. F - Medial Skin edge, excision (2 slides labeled F) - - Benign skin and subcutis. Specimen ?Procedure: ??Total mastectomy ?Specimen Laterality: ?? Left Tumor ?Histologic Type: ?? Invasive carcinoma of no special type (ductal, not ? otherwise specified) ?Histologic Type Comments: ?? with micropapillary features ?Histologic Grade (Stanley Histologic Score) ? Glandular (Acinar) / Tubular [...] Lymph Nodes Examined: ?6 ? Number of [place] Nodes Examined: ?5 Pathologic Stage Classification (pTNM, AJCC 8th Edition) ?Primary Tumor (Invasive Carcinoma) (pT): ?pT2 ?Regional Lymph Nodes (pN) ? Category (pN): ?? pN1a Labs: 03/17/22- WBC-5.78 Hgb/Hct-11.5/35.8 Plt-168 ANC-4.17 Na-139 K+-4.5 BUN/Cr-18/1.3 Glucose-131 Ca-9.3 T. Bili-0.3 AST-20 ALT-34 Alk phos-95 Albumin-3.7 Ferritin-131 02/04/21- WBC-6.04 Hgb/Hct-10.5/33.4 MCV-87.7 Plt-162 ANC-4.39 Na-142 K+-43. BUN/Cr-20/1.5 Glucose-121 Ca-8.8 T. Bili-0.2 AST-14 ALT-25 Alk phos-101 Albumin-3.7 SbaB7B-5.0 Ferritin-215 11/08/20- WBC-6.67 Hgb/Hct-10.5/33.7 Plt-197 ANC-5.02 Na-142 [...] ER+/OR+, Her2 IHC neg, LN 2/6, DCIS, wO2oG1p (stage IIA) Treatment: -12/07/2018 left mastectomy and [...] questions/concerns or new symptoms. Ethel Christianson MSN, RECEPTIONIST AIRLINE LOUNGE, AOCNP Medical Oncology I spent over 30 minutes today in ROS and physical exam, review of chart, labs and tests and counseling and coordination of care and documentation in record. 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
--- OUTSIDE RECORDS SUMMARY | 2024-04-28 01:57 | XMS_ITS | Encounter Summary ---
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 [...] it and is tolerating it well. Interval history(03/21/24): Ms. Santizo returns to the [facility] for follow-up of breast cancer. Overall, Myesha feels well. She is currently on letrozole daily. No noticeable side effects. She continues on Zoloft for her mood which is stable and sees a counselor. She has a history of fibrocystic breasts and occasional tenderness. No new tenderness or dominant mass or suspicious lesion on breast exam. She saw Dr. Maharaj for L. Axillary tightness and Dr. Maharaj recommended PT but she isholding on this. No new illnesses or hospitalizations since we saw her last. Denies any cough, shortness of breath, loss of appetite or new breast issues. Denies any headaches or vision changes. She has BLE swelling which is chronic and stable. She is not taking her diuretic as it makes her urinatetoo much. She is following up with her PCP in regards to her LE swelling. No other focal complaintstoday. The remainder of review of systems reviewed [...] Hypothyroid Squamous cell skin cancer Social History: Non-smoker drinks alcohol occasionally, she is retired, lives by herself. Family History: Grandfather had colon cancer, 2 maternal aunt had breast cancer Allergies: Allergies Allergen Reactions Adhesive Tape Other reaction(s): blistering Atorvastatin Calcium CIS - myalgias Docetaxel Syncope, 02 desaturation, tachycardia, hypotension. Medications: Your Medications Accurate as of March 21, 2024 3:41 PM. If you have any questions, ask your nurse or doctor. Continued medications, unchanged Dose Details acetaminophen 500 mg tablet Commonly known as: Tylenol As needed Refills: 0 calcium carb,gluc-mag gluc,ox 500 mg calcium- 250 mg Tablet Take by mouth. Refills: 0 [...] 2.5 mg Quantity: 90 tablet Refills: 3 levothyroxine 88 mcg tablet Commonly known as: Synthroid Take 100 mcg by mouth daily. Two tabs on sundays 100 mcg Refills: 0 lisinopriL 10 mg tablet Commonly known as: Zestril Daily Refills: 0 metFORMIN 500 mg tablet Commonly known as: Glucophage Twice a day Refills: 0 pentoxifylline CR 400 mg ER tablet Commonly known as: Trental Take 1 tablet by mouth 3 times daily (with meals). 400 mg Quantity: 90 tablet Refills: 5 pravastatin 40 mg tablet Commonly known as: [...] 37.5 mg Quantity: 90 tablet Refills: 3 vitamin E 400 unit capsule Take 1 capsule by mouth 2 times daily. 1 capsule Refills: 0 Review of Systems: As in interval history [...] cervical, supraclavicular, or axillary adenopathy. Breast Exam: Pt declined as she has no breast complaints Vitals BP 145/67 (Patient Position: Sitting) Pulse 86 Temp 36.5 ??C (97.7 ??F) (Temporal) Resp 16 Ht 153 cm (5' 0.24) Wt 99.8 kg (220 lb) SpO2 97% BMI 42.63 kg/m?? Pathology: Oncotype DX breast recurrence score: 29 corresponded to distant recurrence risk at 9 years of 23%. With Tamoxifen alone A - Outside slide(s) labeled [id number], collection date 11/11/2018. 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 - Ductal carcinoma in-situ (DCIS), high nuclear grade, papillary/micropapillary with necrosis. On submitted slides (reviewed) - ER immunoreactivity: Positive (>90% cancer cells with immunostaining) Stain intensity: Intermediate and Strong HI immunoreactivity: Positive (>90% cancer cells with immunostaining) Stain intensity: Strong HER2 IHC - Per report, 1+/Negative B - Outside slide(s) labeled [id number], collection date 12/07/2018. 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 - Ductal carcinoma in-situ (DCIS), high grade with comedonecrosis. - See Synoptic report. B - Lymph node, [place] #1, left axillary, excision (4 slides labeled B)- - Metastatic carcinoma to one of two lymph nodes. - The anita metastasis measures 1.9 cm. - Extranodal invasion is present. 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 C - Lymph node, left axilla, excision (3 slides labeled C)- - One benign node. D - Lymph node, [place] #2, left axillary, excision (1 slide labeled D)- - One benign node. E - Lymph node, [place] #3, left axillary, excision (2 slides labeled E)- - Two benign nodes. F - Medial Skin edge, excision (2 slides labeled F) - - Benign skin and subcutis. Specimen Procedure: Total mastectomy Specimen Laterality: Left Tumor Histologic Type: Invasive carcinoma of no special type (ductal, not otherwise specified) Histologic Type Comments: with micropapillary features Histologic Grade ([place] Histologic Score) Glandular (Acinar) / Tubular Differentiation: [...] of Lymph Nodes Examined: 6 Number of [place] Nodes Examined: 5 Pathologic Stage Classification (pTNM, AJCC 8th Edition) Primary Tumor (Invasive Carcinoma) (pT): pT2 Regional Lymph Nodes (pN) Category (pN): pN1a Labs: 02/29/24 BUN 16, creatinine 1.5, sodium 140, potassium 4.1, ferritin 70, calcium 9.4, TB 0.32, AST 17, ALT 33, alkaline phosphatase 106, total protein 7.5, WBC 6.12, hemoglobin 11.9, platelet count 190, 08/17/23 BUN 24, creatinine 1.6, sodium 142, [...] T. Bili-0.2 AST-14 ALT-25 Alk phos-101 Albumin-3.7 VesX9T-2.0 Ferritin-215 11/08/20- WBC-6.67 Hgb/Hct-10.5/33.7 Plt-197 ANC-5.02 Na-142 [...] 11.5, platelet count 197 hemoglobin A1c 6.9 Imagin02/29/24 B mammogram, R. Dx mammo, and R. Breast US Impression: Finding on mammogram (0.9cm nodule laterally on MLO view)most probably the breast nipple, repeat MLO with nipple in profile made the nodule disappear. No radiographic evidence of malignancy. 03/18/23 Dexa scan WNL 02/28/23 Mammogram: Benign 02/25/2022 [...] with focal micropapillary features.gr3, LVI-, marilynn neg, ER+/HI+, Her2 IHC neg, LN 2/6, DCIS, [id number] (stage IIA) Treatment: -12/07/2018 left mastectomy and [...] WNL. She is due foranother mammogram 02/2024. 03/21/24 Myesha elects extended endocrine therapy and to continue letrozole 2.5mg daily. She is tolerating it well. #Depressed mood: On Zoloft. She follows with primary care Dr. Avendaño and sees a counselor. #Anemia: Hgb 11.9 today. Ferritin 70, will continue to monitor. She completed 3 doses of Venofer IVin December 2020. 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 #L arm lymphedema: RO recommended PT referral and patient declines. CT chest negative for metastatic disease. Plan: 1. Continue letrozole 2.5mg po daily. Elects to continue extended endocrine therapy for a total of 10 years. 2. DEXA scan q 2 years due 03/2025. 3. Mammogram due 02/2025 4. Follow up visit in 12 months with CBC,CMP, Ferritin and mammogram prior to visit. Dexa prior to visit. Kadie Gaming APRN 30 minutes were spent on date of visit, including non-face to face time. 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 Anemia, unspecified type MCFP current use of aromatase inhibitor Expected: 03/21/2025, Expires: 09/18/2025 CBC (with Diff) Lab Routine 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 Anemia, unspecified type MCFP current use of aromatase inhibitor Expected: 03/21/2025, Expires: 09/20/2025 Comprehensive metabolic panel Non-fasting Lab Routine 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 Anemia, unspecified type joint terminal attack controller current use of aromatase inhibitor Expected: 03/21/2025, Expires: 09/20/2025 Ferritin Lab Routine 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 Anemia, unspecified type joint terminal attack controller current use of aromatase inhibitor Expected: 03/21/2025, Expires: 09/20/2025 DXA Bone densitometry Complete Imaging Routine 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
--- OUTSIDE RECORDS SUMMARY | 2024-04-28 01:57 | XMS_ITS | Encounter Summary ---
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 Procedures NM Bone Scan Whole Body Patsy Shelton MD [facility] [place] [address] Referral ID Status Reason Start Date Expiration Date Visits Requested Visits Authorized [id number] New Request Specialty Service Requested 11/15/2023 05/17/2025 1 1 Reason for Visit * Reason Comments Follow-up Encounter Details Date Type Department Care Team (Late st Contact Info) Description 11/15/2023 2:30 PM EDT Office Visit Radiation Oncology at [address] [phone] Patsy Shelton MD [facility] [place] [address] 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 [...] w/dominant pattern of micropapillary ca, gr 3, ER+[place]+, Her2 IHC neg, s/p mastectomy & SNB, [...] ROBOTIC performed by Anthony Belle MD at [facility] MAIN OR PRO LAPAROSCOPY W TOT HYSTERECTUTERUS <=250 GRAM W TUBE/OVARY N/A 03/28/2015 LAPAROSCOPY,TOTAL HYST, UTERUS<250GM, EVER TYBE &/OR OVARY, ROBOTIC ASSIST performed by Anthony Belle MD at [facility] MAIN OR Cataract surg OU. 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
--- OUTSIDE RECORDS SUMMARY | 2024-04-28 01:57 | XMS_ITS | Encounter Summary ---
Author Organization [facility] Address [facility] [place] [place] [address] Care Team Providers Care Sales Agent Name Role Phone Navid Avendaño MD Primary Care Provider +1 -[phone] Reason for Visit * Reason Onset Date Comments Prior Authorization 07/30/2022 Encounter Details Date Type Department Care Team (Late Contact Info) Description 07/30/2022 Telephone H[place]ology [place] [phone] Leigh Acuna Prior Authorization Social History Tobacco [...] Request PA for Dexa Scan. Call to [facility]: [phone] PA is not required. Call Ref #: [id number] Call start time: 2:42pm Call end time : 2:52pm documented in this encounter Plan of Treatment Upcoming Encounters Date Type Department Care Team (Late st Contact Info) Description 05/15/2024 3:30 PM EST Office Visit Radiation Oncology at [address] [phone] Patsy Shelton MD [facility] [place] [address] documented as of this encounter Visit Diagnoses Not on filedocumented in this encounter Care Teams Sales Agent Relationship Specialty Start Date End Date Navid Avendaño MD [address] [place] [address] PCP - General Family Medicine 01/24/19 documented as of this encounter
--- OUTSIDE RECORDS SUMMARY | 2024-04-28 01:57 | XMS_ITS | Encounter Summary ---
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 Santizo returns to the [facility] [...] stress. Her daughter and grandchild moved to [place] leaving her here alone. Her ex son [...] Tamoxifen alone A ??- Outside slide(s) labeled [id number], collection date 11/11/2018. Breast, left, core needle [...] report, 1+/Negative B ??- Outside slide(s) labeled [id number], collection date 12/07/2018. 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 - Ductal carcinoma in-situ (DCIS), high grade with comedonecrosis. - See Synoptic report. B - Lymph node, [place] #1, left axillary, excision (4 slides labeled B)- - Metastatic carcinoma to one of two lymph nodes. - The anita metastasis measures 1.9 cm. - Extranodal invasion is present. 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 C - Lymph node, left axilla, excision (3 slides labeled C)- - One benign node. D - Lymph node, [place] #2, left axillary, excision (1 slide labeled D)- - One benign node. E - Lymph node, [place] #3, left axillary, excision (2 slides labeled E)- - Two benign nodes. F - Medial Skin edge, excision (2 slides labeled F) - - Benign skin and subcutis. Specimen ?Procedure: ??Total mastectomy ?Specimen Laterality: ?? Left Tumor ?Histologic Type: ?? Invasive carcinoma of no special type (ductal, not ? otherwise specified) ?Histologic Type Comments: ?? with micropapillary features ?Histologic Grade ([place] Histologic Score) ? Glandular (Acinar) / Tubular [...] Lymph Nodes Examined: ?6 ? Number of [place] Nodes Examined: ?5 Pathologic Stage Classification (pTNM, AJCC 8th Edition) ?Primary Tumor (Invasive Carcinoma) (pT): ?pT2 ?Regional Lymph Nodes (pN) ? Category (pN): ?? pN1a Labs: 02/04/21- WBC-6.04 Hgb/Hct-10.5/33.4 MCV-87.7 Plt-162 ANC-4.39 Na-142 K+-43. BUN/Cr-20/1.5 Glucose-121 Ca-8.8 T. Bili-0.2 AST-14 ALT-25 Alk phos-101 Albumin-3.7 QfvL2R-7.0 Ferritin-215 11/08/20- WBC-6.67 Hgb/Hct-10.5/33.7 Plt-197 ANC-5.02 Na-142 [...] ER+/[place]+, Her2 IHC neg, LN 2/6, DCIS, [id number] (stage IIA) Treatment: -12/07/2018 left mastectomy and [...] area. Their is a meal site in [place] that would be available to her. She [...] questions/concerns or new symptoms. 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
--- OUTSIDE RECORDS SUMMARY | 2024-04-28 01:57 | XMS_ITS | Encounter Summary ---
Author Organization [facility] Address [facility] [place] [address] Care Team Providers Care Ultrasound Manager Name Role Phone Navid Avendaño MD Primary Care Provider +1 -[phone] Reason for Visit * Reason Onset Date Comments Labs Only 08/26/2021 Encounter Details Date Type Department Care Team (Late Contact Info) Description 08/26/2021 Telephone Hematology/Oncology at [address] [phone] Penny Chew RN Labs Only [...] Department Care Team (Late Contact Info) Description 05/15/2024 3:30 PM EST Office Visit Radiation Oncology at [address] [phone] Patsy Shelton MD [facility] [place] [address] documented as of this encounter Visit Diagnoses Not on filedocumented in this encounter Care Teams Ultrasound Manager Relationship Specialty Start Date End Date Navid Avendaño MD [address] [place] [address] PCP - General Family Medicine 01/24/19 documented as of this encounter
--- OUTSIDE RECORDS SUMMARY | 2024-04-28 01:57 | XMS_ITS | Encounter Summary ---
[place] [address] Care Team Providers Care Pleat Patternmaker Name Role Phone Navid Avendaño MD Primary Care Provider +1 -[phone] Reason for Visit * Reason Onset Date Comments Prior Authorization 03/29/2023 Encounter Details Date Type Department Care Team (Late Contact Info) Description 03/29/2023 Telephone Hematology [place] [phone] Leigh Acuna Prior Authorization Social History Tobacco [...] 3:54 PM EDT Procedure Prior Authorization Procedure/Cpt: 65331 MRI Bilateral breast Rationale for request: R92.2 Health plan: Corina Reina Authorizing collections representative name: as above Faxed to health plan on: 03/29/23 Health plan decision: PA not required Authorization number: Effective Date: Facility: documented in this encounter Plan of Treatment Upcoming Encounters Date Type Department Care Team (Late st Contact Info) Description 05/15/2024 3:30 PM EST Office Visit Radiation Oncology at [address] [phone] Patsy Shelton MD [facility] [place] [address] documented as of this encounter Visit Diagnoses Not on filedocumented in this encounter Care Teams Pleat Patternmaker Relationship Specialty Start Date End Date Navid Avendaño MD [address] [place] [address] PCP - General Family Medicine 01/24/19 documented as of this encounter
--- OUTSIDE RECORDS SUMMARY | 2024-04-28 01:57 | XMS_ITS | Encounter Summary ---
Author Organization [facility] [place] [place] [address] Care Team Providers Care Manager Room Name Role Phone Navid Avendaño MD Primary Care Provider +1 [phone] Encounter Details Date Type Department Care Team (Late Contact Info) Description 02/29/2024 Ancillary Procedure Radiology Library at [facility] NAVJOT [place] [phone] Edgar Carreno MD [facility] [place] [address] Social History Tobacco Use Types Packs/Day Years [...] EST Office Visit Radiation Oncology at [address] [phone] Patsy Shelton MD [facility] [place] [address] documented as of this encounter Procedures Procedure Name Priority Date/Time Associated Diagnosis Comments FILM LIBRARY STORAGE ONLY MAMMO Routine 02/29/2024 12:00 AM EDT documented in this encounter Results * Film Library- Storage Only Mammo (02/29/2024 12:00 AM EDT) Narrative RAD - 03/02/2024 6:38 PM EDT This exam is auto-finalizing. It's purpose is for storage only. Edgar Carreon MD IMG FILM LIBRARY ORD ERABLES [place], [place] documented in this encounter Visit Diagnoses Not on filedocumented in this encounter Care Teams Manager Room Relationship Specialty Start Date End Date Navid Avendaño MD [address] [place] [address] PCP - General Family Medicine 01/24/19 documented as of this encounter
--- OUTSIDE RECORDS SUMMARY | 2024-04-28 01:57 | XMS_ITS | Encounter Summary ---
Author Organization [facility] Address [facility] [place] [address] Care Team Providers Care Control Systems Engineer Name Role Phone Navid Avendaño MD Primary Care Provider +1 -[phone] Reason for Visit * Reason Comments Follow-up Encounter Details Date Type Department Care Team (Late st Contact Info) Description 09/28/2022 2:30 PM EDT Office Visit Radiation Oncology at [address] [phone] Patsy Shelton MD [facility] [place] [address] Breast cancer screening by mammogram; S/P radiotherapy [...] w/dominant pattern of micropapillary ca, gr 3, ER+[place]+, Her2 IHC neg, s/p mastectomy & SNB, [...] ROBOTIC performed by Anthony Belle MD at [facility] MAIN OR ? ? PRO LAPAROSCOPY W TOT HYSTERECTUTERUS <=250 GRAM W TUBE/OVARY N/A 03/28/2015 LAPAROSCOPY,TOTAL HYST, UTERUS<250GM, EVER TYBE &/OR OVARY, ROBOTIC ASSIST performed by Anthony Belle MD at [facility] MAIN OR Cataract surg OU. [...] EST Office Visit Radiation Oncology at [address] [phone] Patsy Shelton MD [facility] [place] [address] Scheduled Orders Name Type Priority Associated Diagnoses Orde r Schedule Mammo Screening Cad and Henrique Right Imaging Routine Breast cancer screening by mammogram Expected: 02/26/2023, Expires: 03/31/2024 documented as of this encounter Visit Diagnoses Diagnosis Breast cancer screening by mammogram S/P radiotherapy Convalescence following radiotherapy documented in this encounter Care Teams Control Systems Engineer Relationship Specialty Start Date End Date Navid Avendaño MD [address] [facility] [place] [address] PCP - General Family Medicine 01/24/19 documented as of this encounter
--- OUTSIDE RECORDS SUMMARY | 2024-04-28 01:57 | XMS_ITS | Encounter Summary ---
Author Organization [facility] [place] [address] Care Team Providers Care Stringed Instrument Repairer Name Role Phone Navid Avendaño MD Primary Care Provider +1 -[phone] Reason for Visit * Reason Comments Medication Refill Encounter Details Date Type Department Care Team (Late Contact Info) Description 09/05/2020 Refill [place] [address] Edgar Carreon MD [facility] [address] HEM[place]OLOG[place] [address] 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 [...] EST Office Visit Radiation Oncology at [address] [phone] Patsy Shelton MD 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
--- OUTSIDE RECORDS SUMMARY | 2024-04-28 01:57 | XMS_ITS | Encounter Summary ---
Author Organization [facility] Address [facility] [place] [address] Care Team Providers Care Drain Tiler Name Role Phone Navid Avendaño MD Primary Care Provider +1 -[phone] Reason for Referral * Consultation (Routine) - Specialty Diagnoses / Procedures Referred By Moses damian Referred To Contact Dermatology Diagnoses Skin lesion Patsy Shelton MD [facility] [place] [address] Kingsley Vasques MD [address] [place] [address], [place] [address] Referral ID Status Reason Start Date Expiration Date V isits Requested Visits Authorized [id number] Consult, Test & Treat Non PCP 09/30/2020 03/29/2021 1 1 Reason for Visit * Reason Comments Radiation Follow-up Encounter Details Date Type Department Care Team (Late st Contact Info) Description 09/30/2020 3:30 PM EDT Office Visit Radiation Oncology at [address] [phone] Patsy Shelton MD [facility] [place] [address] Breast cancer screening by mammogram; Skin lesion [...] be a good idea to have a blue leather sorter looks @ the sores in front of your ears. Someone will contact you to schedule an appointment with Dr. Vasques, a blue leather sorter in [place]. Someone will call you to schedule right [...] by Anthony Belle MD at [facility] MAIN OR ? ? PRO LAPAROSCOPY W TOT HYSTERECTUTERUS <=250 GRAM W TUBE/OVARY N/A 03/28/2015 LAPAROSCOPY,TOTAL HYST, UTERUS<250GM, EVER TYBE &/OR OVARY, ROBOTIC ASSIST performed by Anthony Belle MD at [facility] MAIN OR Cataract surg OU. [...] EST Office Visit Radiation Oncology at [address] [phone] Patsy Shelton MD [facility] [place] [address] Scheduled Referrals Name Type Priority Associated Diagnoses Order Schedule Referral to Dermatology Outpatient Referral Routine Skin lesion Ordered: 09/30/2020 documented as of this encounter Visit Diagnoses Diagnosis Breast cancer screening by mammogram Skin lesion Unspecified disorder of skin and subcutaneous tissue documented in this encounter Care Teams Drain Tiler Relationship Specialty Start Date End Date Navid Avendaño MD [address] [place] [address] [address] [facility] 1 [place] [address] PCP - General Family Medicine 01/24/19 documented as of this encounter
--- OUTSIDE RECORDS SUMMARY | 2024-04-28 01:57 | XMS_ITS | Encounter Summary ---
Author Organization [facility] Address [facility] [place] [address] Care Team Providers Care Finisher Operator Name Role Phone Navid Avendaño MD Primary Care Provider +1 -[phone] Encounter Details Date Type Department Care Team (Latest Contact Info) Description 03/21/2024 Travel Social History Tobacco Use Types Packs/Day [...] EST Office Visit Radiation Oncology at [address] [phone] Patsy Shelton MD [facility] [place] [address] documented as of this encounter Visit Diagnoses Not on filedocumented in this encounter Care Teams Finisher Operator Relationship Specialty Start Date End Date Navid Avendaño MD [address] [place], [place] [address] PCP - General Family Medicine 01/24/19 documented as of this encounter
--- OUTSIDE RECORDS SUMMARY | 2024-04-28 01:57 | XMS_ITS | Encounter Summary ---
Author Organization [facility] [place] [address] Care Team Providers Care Archery Equipment Hay Sorter Name Role Phone Navid Avendaño MD Primary Care Provider +1 -[phone] Encounter Details Date Type Department Care Team (Late Contact Info) Description 11/30/2023 Ancillary Procedure Radiology Library at [facility] [place] [phone] Navid Avendaño MD [address] [place], [place] [id number] Social History Tobacco Use Types Packs/Day Years [...] EST Office Visit Radiation Oncology at [address] [phone] Patsy Shelton MD [facility] [place] [address] documented as of this encounter Procedures Procedure [...] Navid Avendaño MD IMG FILM LIBRARY ORDERABLES [place], [place] documented in this encounter Visit Diagnoses Not on filedocumented in this encounter Care Teams Archery Equipment Hay Sorter Relationship Specialty Start Date End Date Navid Avendaño MD [address] [place] [address] PCP - General Family Medicine 01/24/19 documented as of this encounter
--- OUTSIDE RECORDS SUMMARY | 2024-04-28 01:57 | XMS_ITS | Encounter Summary ---
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 Patsy Shelton MD [facility] [place] [address] Unknown None Referral ID Status Reason Start Date Expiration Date Visits Requested Visits Authorized [id number] Authorized Evaluate and Treat Non DH PCP 12/14/2023 06/11/2024 12 12 Reason for Visit * Reason Comments Follow-up Encounter Details Date Type Department Care Team (Latest Contact Info) Description 12/14/2023 3:30 PM EDT TH Visit (TeleHealth) Radiation Oncology at [address] [phone] Patsy Shelton MD [facility] [place] [address] 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 Prescription for trental (pentoxifylline) sent to [facility]. Take 1 of the tablets 3 times/daywith [...] CT chest result. Myesha & daughter Kadie collections specialist. Subjective: No new c/o. 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
--- OUTSIDE RECORDS SUMMARY | 2024-04-28 01:57 | XMS_ITS | Encounter Summary ---
Author Organization [facility] Address [facility] [place] [address] Care Team Providers Care Operator/Assistant Foreman Name Role Phone Navid Avendaño MD Primary Care Provider +1 -[phone] Encounter Details Date Type Department Care Team (Late st Contact Info) Description 12/23/2020 Orders Only Hematology/Oncology at [address] [phone] Ethel Christianson RN Social History Tobacco Use [...] EST Office Visit Radiation Oncology at [address] [phone] Patsy Shelton MD [facility] [place] [address] documented as of this encounter Visit Diagnoses Not on filedocumented in this encounter Care Teams Operator/Assistant Foreman Relationship Specialty Start Date End Date Navid Avendaño MD [address] [place] [address] PCP - General Family Medicine 01/24/19 documented as of this encounter
--- OUTSIDE RECORDS SUMMARY | 2024-04-28 01:57 | XMS_ITS | Encounter Summary ---
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 [...] Interval history(08/17/23): Ms. Santizo returns to the [facility] for follow-up of breast [...] Tamoxifen alone A - Outside slide(s) labeled [id number], collection date 11/11/2018. Breast, left, core needle [...] report, 1+/Negative B - Outside slide(s) labeled [id number], collection date 12/07/2018. 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 - Ductal carcinoma in-situ (DCIS), high grade with comedonecrosis. - See Synoptic report. B - Lymph node, [place] #1, left axillary, excision (4 slides labeled B)- - Metastatic carcinoma to one of two lymph nodes. - The anita metastasis measures 1.9 cm. - Extranodal invasion is present. 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 C - Lymph node, left axilla, excision (3 slides labeled C)- - One benign node. D - Lymph node, [place] #2, left axillary, excision (1 slide labeled D)- - One benign node. E - Lymph node, [place] #3, left axillary, excision (2 slides labeled E)- - Two benign nodes. F - Medial Skin edge, excision (2 slides labeled F) - - Benign skin and subcutis. Specimen Procedure: Total mastectomy Specimen Laterality: Left Tumor Histologic Type: Invasive carcinoma of no special type (ductal, not otherwise specified) Histologic Type Comments: with micropapillary features Histologic Grade ([place] Histologic Score) Glandular (Acinar) / Tubular Differentiation: [...] of Lymph Nodes Examined: 6 Number of [place] Nodes Examined: 5 Pathologic Stage Classification (pTNM, [...] T. Bili-0.2 AST-14 ALT-25 Alk phos-101 Albumin-3.7 ZtmU8E-0.0 Ferritin-215 11/08/20- WBC-6.67 Hgb/Hct-10.5/33.7 Plt-197 ANC-5.02 Na-142 [...] ER+/AZ+, Her2 IHC neg, LN 2/6, DCIS, qM5gO5v (stage IIA) Treatment: -12/07/2018 left mastectomy and [...] EST Office Visit Radiation Oncology at [address] [phone] Patsy Shelton MD [facility] [place] [address] Scheduled Orders Name Type Priority Associated Diagnoses [...] positive malignant neoplasm of left breast terminal operations supervisor current use of aromatase inhibitor Use of aromatase inhibitors Hot flashes Symptomatic menopausal or female climacteric states documented in this encounter Care Teams Improvement Nurse Relationship Specialty Start Date End Date Navid Avendaño MD [address] [place] [address] 1 [place] [address] PCP - General Family Medicine 01/24/19 documented as of this encounter
--- OUTSIDE RECORDS SUMMARY | 2024-04-28 01:57 | XMS_ITS | Encounter Summary ---
Author Organization [facility] [place] [address] Care Team Providers Care Carrot Harvester Name Role Phone Navid Avendaño MD Primary Care Provider +1 -[phone] Encounter Details Date Type Department Care Team (Late Contact Info) Description 09/27/2023 Telephone Radiation Oncology at [address] [phone] Celeste Flynn RN Social [...] EST Office Visit Radiation Oncology at [address] [phone] Patsy Shelton MD [facility] [place] [address] documented as of this encounter Visit Diagnoses Not on filedocumented in this encounter Care Teams Carrot Harvester Relationship Specialty Start Date End Date Navid Avendaño MD [address] [place] [address] PCP - General Family Medicine 01/24/19 documented as of this encounter
--- OUTSIDE RECORDS SUMMARY | 2024-04-28 01:57 | XMS_ITS | Encounter Summary ---
Author Organization [facility] Address [facility] [place] [address] Care Team Providers Care Gate Watchman Name Role Phone Navid Avendaño MD Primary Care Provider +1 -[phone] Reason for Visit * Reason Onset Date Comments Medication Refill 06/24/2023 Encounter Details Date Type Department Care Team (Late Contact Info) Description 06/24/2023 Refill Hematology/Oncology at [address] [phone] Edgar Carreon MD [facility] [place] [address] 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 [...] EST Office Visit Radiation Oncology at [address] [phone] Patsy Shelton MD [facility] [place] [address] documented as of this encounter Visit Diagnoses Diagnosis 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
--- OUTSIDE RECORDS SUMMARY | 2024-04-28 01:57 | XMS_ITS | Encounter Summary ---
Author Organization [facility] Address [facility] [place] [address] Care Team Providers Care Strategic Consultant Name Role Phone Navid Avendaño MD Primary Care Provider +1 -[phone] Encounter Details Date Type Department Care Team [...] EST Office Visit Radiation Oncology at [address] [phone] Patsy Shelton MD [facility] [place] [address] documented as of this encounter Visit Diagnoses Not on filedocumented in this encounter Care Teams Strategic Consultant Relationship Specialty Start Date End Date Navid Avendaño MD [address] [place], [place] [address] PCP - General Family Medicine 01/24/19 documented as of this encounter
--- OUTSIDE RECORDS SUMMARY | 2024-04-28 01:57 | XMS_ITS | Encounter Summary ---
Author Organization [facility] [place] [address] Care Team Providers Care Unit Operator Name Role Phone Navid Avendaño MD Primary Care Provider +1 -[phone] Encounter Details Date Type Department Care Team (Late Contact Info) Description 02/26/2023 Ancillary Procedure Radiology Library at [facility] [place] [address] Navid Avendaño MD [address] [place], [place] [id number] Social History Tobacco Use Types Packs/Day Years [...] EST Office Visit Radiation Oncology at [address] [phone] Patsy Shelton MD [facility] [place] [address] documented as of this encounter Procedures Procedure Name Priority Date/Time Associated Diagnosis Comments FILM LIBRARY STORAGE ONLY MAMMO Routine 02/26/2023 12:00 AM EDT documented in this encounter Results * Film Library- Storage Only Mammo (02/26/2023 12:00 AM EDT) Narrative JANUSZ - 03/06/2023 9:11 PM EDT This exam is auto-finalizing. It's purpose is for storage only. Navid Avendaño MD IMG FILM LIBRARY ORDERABLES JANUSZ [place], [place] documented in this encounter Visit Diagnoses Not on filedocumented in this encounter Care Teams Unit Operator Relationship Specialty Start Date End Date Navid Avendaño MD [address] [place] [address] PCP - General Family Medicine 01/24/19 documented as of this encounter
--- OUTSIDE RECORDS SUMMARY | 2024-04-28 01:57 | XMS_ITS | Encounter Summary ---
Author Organization [facility] Address [facility] [place] [place] [address] Care Team Providers Care Supervisor Toy Parts Former Name Role Phone Navid Avendaño MD Primary Care Provider +1 -[phone] Encounter Details Date Type Department Care Team (Late Contact Info) Description 08/12/2023 Telephone Hematology/Oncology at [address] [phone] Ivonne Pennington Social History Tobacco Use Types [...] EST Office Visit Radiation Oncology at [address] [phone] Patsy Shelton MD [facility] [place] [address] documented as of this encounter Visit Diagnoses Not on filedocumented in this encounter Care Teams Supervisor Toy Parts Former Relationship Specialty Start Date End Date Navid Avendaño MD [address] [place] [address] PCP - General Family Medicine 01/24/19 documented as of this encounter
--- OUTSIDE RECORDS SUMMARY | 2024-04-28 01:57 | XMS_ITS | Encounter Summary ---
Author Organization [facility] Address [facility] [place] [address] Care Team Providers Care Sand Conditioner Machine Name Role Phone Navid Avendaño MD Primary Care Provider +1 -[phone] Encounter Details Date Type Department Care Team [...] PM EST Office Visit Radiation Oncology at [address] [phone] Patsy Shelton MD [facility] [place] [address] documented as of this encounter Visit Diagnoses Not on filedocumented in this encounter Care Teams Sand Conditioner Machine Relationship Specialty Start Date End Date Navid Avendaño MD [address] [place], [place] [address] PCP - General Family Medicine 01/24/19 documented as of this encounter
--- OUTSIDE RECORDS SUMMARY | 2024-04-28 01:57 | XMS_ITS | Encounter Summary ---
Author Organization [facility] [place] [address] Care Team Providers Care Brake Lining Curer Name Role Phone Navid Avendaño MD Primary Care Provider +1 -[phone] Encounter Details Date Type Department Care Team (Late Contact Info) Description 03/18/2023 Ancillary Procedure Radiology Library at [facility] [place] [address] Navid Avendaño MD [address] [place], [place] [address] Social History Tobacco Use Types Packs/Day Years [...] EST Office Visit Radiation Oncology at [address] [phone] Patsy Shelton MD [facility] [place] [address] documented as of this encounter Procedures Procedure Name Priority Date/Time Associated Diagnosis Comments FILM LIBRARY- STORAGE ONLY DXA IMAGES Routine 03/18/2023 12:00 AM EDT documented in this encounter Results * Film Library- Storage Only DXA Images (03/18/2023 12:00 AM EDT) Narrative KEYANNA BOUDREAUX - 03/19/2023 1:55 PM EDT This exam is auto-finalizing. It's purpose is for storage only. Navid Avendaño MD IMG FILM LIBRARY ORDERABLES JANUSZ [place], [place] documented in this encounter Visit Diagnoses Not on filedocumented in this encounter Care Teams Brake Lining Curer Relationship Specialty Start Date End Date Navid Avendaño MD [address] [place] [address] PCP - General Family Medicine 01/24/19 documented as of this encounter
--- OUTSIDE RECORDS SUMMARY | 2024-04-28 01:57 | XMS_ITS | Encounter Summary ---
Author Organization [facility] Address [facility] [place] [address] Care Team Providers Care Entertainment Dancer Name Role Phone Navid Avendaño MD Primary Care Provider +1 -[phone] Reason for Visit * Reason Onset Date Comments Other 04/13/2023 Hot flashes Encounter Details Date Type Department Care Team (Late Contact Info) Description 04/13/2023 Telephone Hematology/Oncology at [address] [phone] Penny Chew RN Other (Hot [...] EST Office Visit Radiation Oncology at [address] [phone] Patsy Shelton MD [facility] [place] [address] documented as of this encounter Visit Diagnoses Not on filedocumented in this encounter Care Teams Entertainment Dancer Relationship Specialty Start Date End Date Navid Avendaño MD [address] [place] [address] PCP - General Family Medicine 01/24/19 documented as of this encounter
--- OUTSIDE RECORDS SUMMARY | 2024-04-28 01:57 | XMS_ITS | Encounter Summary ---
Author Organization [facility] Address [facility] [place] [address] Care Team Providers Care Booster Operator Name Role Phone Navid Avendaño MD Primary Care Provider +1 -[phone] Reason for Visit * Reason Comments Medication Refill Encounter Details Date Type Department Care Team (Late st Contact Info) Description 09/02/2022 Refill Hematology/Oncology at [address] [phone] Ethel Christianson, RN Hormone receptor positive malignant [...] PM EST Office Visit Radiation Oncology at [address] [phone] Patsy Shelton MD [facility] [place] [address] documented as of this encounter Visit Diagnoses Diagnosis 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
--- OUTSIDE RECORDS SUMMARY | 2024-04-28 01:57 | XMS_ITS | Encounter Summary ---
Author Organization [facility] [place] [address] Care Team Providers Care It Business Systems Analyst Name Role Phone Navid Avendaño MD Primary Care Provider +1 -[phone] Encounter Details Date Type Department Care Team (Late Contact Info) Description 04/29/2023 Orders Only [place] [address] Patsy Shelton MD [facility] [place] [address] Dense breast tissue on mammogram, unspecified type [...] EST Office Visit Radiation Oncology at [address] [phone] Patsy Shelton MD [facility] [place] [address] documented as of this encounter Visit Diagnoses Diagnosis Dense breast tissue on mammogram, unspecified type documented in this encounter Care Teams It Business Systems Analyst Relationship Specialty Start Date End Date Navid Avendaño MD [address] [place] [address] PCP - General Family Medicine 01/24/19 documented as of this encounter
--- OUTSIDE RECORDS SUMMARY | 2024-04-28 01:57 | XMS_ITS | Encounter Summary ---
Author Organization [facility] Address [facility] [address] [place] [address] Care Team Providers Care Water Softener Service Supervisor Name Role Phone Navid Avendaño MD Primary Care Provider +1 -[phone] Encounter Details Date Type Department Care Team (Late st Contact Info) Description 09/07/2022 Orders Only Hematology/Oncology at [address] [phone] Ethel Christianson, RN Hormone receptor positive malignant [...] PM EST Office Visit Radiation Oncology at [address] [phone] Patsy Shelton MD [facility] [place] [address] documented as of this encounter Visit Diagnoses Diagnosis 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
--- OUTSIDE RECORDS SUMMARY | 2024-04-28 01:57 | XMS_ITS | Encounter Summary ---
[place] [address] Care Team Providers Care Water Supervisor Name Role Phone Navid Avendaño MD Primary Care Provider +1 -[phone] Reason for Visit * Reason Comments IV Medication Venofer * Treatment/Therapy Plan Authorization (Routine) - Closed Specialty Diagnoses / Procedures Referred By Contac t Referred To Contact Diagnoses Iron deficiency anemia, unspecified iron deficiency anemia type Ethel Christianson RN Referral ID Status Reason Start Date Expiration Date Visits Re quested Visits Authorized [id number] Closed 11/13/2020 11/13/2021 99 99 Encounter Details Date Type Department Care Team (Late st Contact Info) Description 12/17/2020 1:30 PM EDT Infusion Hematology Oncology at [address] [phone] Iron deficiency anemia, unspecified iron [...] and BSA by Delmis Dewey, [facility] and [facility]. REACTIONS (DESCRIPTION, TIME, INTERVENTION AND EFFECTIVENESS) none [...] PM EST Office Visit Radiation Oncology at [address] [phone] Patsy Shelton MD [facility] [place] [address] documented as of this encounter Visit Diagnoses Diagnosis Iron deficiency anemia, unspecified iron deficiency anemia type documented in this encounter Administered Medications Inactive Administered Medications - up to 3 most recent administrations Medication Order MAR Action Action Date Dose Rate Site acetaminophen (Tylenol) tablet 975 mg 975 mg, Oral, ONCE, 1 dose, On Wed12/17/20 at 1245, Give prior to patient's infusion., Routine Given 12/17/2020 1:42 PM EDT 975 mg diphenhydrAMINE (Benadryl) capsule 25 mg 25 mg, Oral, ONCE, 1 dose, On Wed12/17/20 at 1245, Give Benadryl 25 mg PO prior to the patient's Venofer infusion., Routine Given 12/17/2020 1:42 PM EDT 25 mg hydrocortisone sod succ (pf) (Solu-CORTEF) (100 mg/2 mL) injection 100 mg 100 mg, Intravenous, ONCE, 1 dose, On Wed12/17/20 at 1245, Give prior to patient's infusion. Given 12/17/2020 1:45 PM EDT 100 mg iron sucrose (Venofer) 300 mg in sodium chloride 0.9% 115 mL infusion 300 mg, Intravenous, ONCE, 1 dose, On Wed12/17/20 at 1245, Administer over 90 Minutes, Patients should be closely monitored for signs of hypersensitivity during and for at least 30 min after each administration. The observation period is not needed for patients who have demonstrated tolerability. New Bag 12/17/2020 2:01 PM EDT 300 mg 76.7 mL/hr documented in this encounter Care Teams Water Supervisor Relationship Specialty Start Date End Date Navid Avendaño MD [address] [place] [address] PCP - General Family Medicine 01/24/19 documented as of this encounter
--- OUTSIDE RECORDS SUMMARY | 2024-04-28 01:57 | XMS_ITS | Encounter Summary ---
Author Organization [facility] Address [facility] [address] [place] [address] Care Team Providers Care Child Nurse Name Role Phone Navid Avendaño MD Primary Care Provider +1 -[phone] Reason for Visit * Reason Comments Follow-up Encounter Details Date Type Department Care Team (Late st Contact Info) Description 03/29/2023 9:00 AM EDT Office Visit Radiation Oncology at [address] [phone] Patsy Shelton MD [facility] [place] [address] Dense breast tissue on mammogram; S/P radiotherapy [...] w/dominant pattern of micropapillary ca, 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 Physical [...] PM EST Office Visit Radiation Oncology at [address] [phone] Patsy Shelton MD [facility] [place] [address] documented as of this encounter Visit Diagnoses Diagnosis Dense breast tissue on mammogram S/P radiotherapy Convalescence following radiotherapy documented in this encounter Care Teams Child Nurse Relationship Specialty Start Date End Date Navid Avendaño MD [address] [place] [address] PCP - General Family Medicine 01/24/19 documented as of this encounter
--- OUTSIDE RECORDS SUMMARY | 2024-04-28 01:57 | XMS_ITS | Encounter Summary ---
Author Organization [facility] Address [facility] [place] [address] [place] [address] Care Team Providers Care Processor Solid Propellant Name Role Phone Navid Avendaño MD Primary Care Provider +1 -[phone] Reason for Visit * Reason Comments Medication Refill Encounter Details Date Type Department Care Team (Late Contact Info) Description 06/10/2021 Refill Hematology/Oncology at [address] [phone] Edgar Carreon MD [facility] DR HEMATOLOGY [place] [address] 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 [...] EST Office Visit Radiation Oncology at [address] [phone] Patsy Shelton MD [facility] DR [place] [address] documented as of this encounter Visit Diagnoses Diagnosis 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
--- OUTSIDE RECORDS SUMMARY | 2024-04-28 01:57 | XMS_ITS | Encounter Summary ---
Author Organization [facility] Address [facility] [address] [place] [address] Care Team Providers Care Tattoo Artist Name Role Phone Navid Avendaño MD Primary Care Provider +1 -[phone] Encounter Details Date Type Department Care Team [...] EST Office Visit Radiation Oncology at [address] [phone] Patsy Shelton MD [facility] [place] [address] documented as of this encounter Visit Diagnoses Not on filedocumented in this encounter Care Teams Tattoo Artist Relationship Specialty Start Date End Date Navid Avendaño MD [address] [place], [place] [address] PCP - General Family Medicine 01/24/19 documented as of this encounter
--- OUTSIDE RECORDS SUMMARY | 2024-04-28 01:57 | XMS_ITS | Encounter Summary ---
Author Organization [facility] Address [facility] [address] [place] [address] Care Team Providers Care Knifeman Name Role Phone Navid Avendaño MD Primary Care Provider +1 -[phone] Encounter Details Date Type Department Care Team [...] EST Office Visit Radiation Oncology at [address] [phone] Patsy Shelton MD [facility] [place] [address] documented as of this encounter Visit Diagnoses Not on filedocumented in this encounter Care Teams Knifeman Relationship Specialty Start Date End Date Navid Avendaño MD [address] [place], [place] [address] PCP - General Family Medicine 01/24/19 documented as of this encounter
--- OUTSIDE RECORDS SUMMARY | 2024-04-28 01:57 | XMS_ITS | Encounter Summary ---
Author Organization [facility] Address [facility] [place] [place] [address] Care Team Providers Care Material Handler 2Nd Shift Name Role Phone Navid Avendaño MD Primary Care Provider +1 -[phone] Encounter Details Date Type Department Care Team (Late st Contact Info) Description 02/18/2021 1:30 PM EDT Office Visit Hematology/Oncology at [address] [phone] Edgar Carreon MD [facility] [place] [address] Ethel Christianson RN Breast cancer, stage 2, [...] this encounter Progress Notes * Ethel Christianson, COMMUNICABLE DISEASE SPECIALIST - 02/18/2021 1:30 PM EDT Images from the original note were not included. 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 Santizo returns to the [facility] [...] with this hand on occasion. Shesees Dr. Avednaño for follow up. Denies any cough, shortness of breath, loss of appetite or breast issues. Her main complaint today is stress. Her daughter and grandchild just moved to [place] leaving her here alone. Her ex son [...] Tamoxifen alone A ??- Outside slide(s) labeled [id number], collection date 11/11/2018. Breast, left, core needle [...] report, 1+/Negative B ??- Outside slide(s) labeled [id number], collection date 12/07/2018. 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 - Ductal carcinoma in-situ (DCIS), high grade with comedonecrosis. - See Synoptic report. B - Lymph node, [place] #1, left axillary, excision (4 slides labeled B)- - Metastatic carcinoma to one of two lymph nodes. - The anita metastasis measures 1.9 cm. - Extranodal invasion is present. 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 C - Lymph node, left axilla, excision (3 slides labeled C)- - One benign node. D - Lymph node, [place] #2, left axillary, excision (1 slide labeled D)- - One benign node. E - Lymph node, [place] #3, left axillary, excision (2 slides labeled [...] Lymph Nodes Examined: ?6 ? Number of [place] Nodes Examined: ?5 Pathologic Stage Classification (pTNM, AJCC 8th Edition) ?Primary Tumor (Invasive Carcinoma) (pT): ?pT2 ?Regional Lymph Nodes (pN) ? Category (pN): ?? pN1a Labs: 02/04/21- WBC-6.04 Hgb/Hct-10.5/33.4 MCV-87.7 Plt-162 ANC-4.39 Na-142 K+-43. BUN/Cr-20/1.5 Glucose-121 Ca-8.8 T. Bili-0.2 AST-14 ALT-25 Alk phos-101 Albumin-3.7 YocO5P-4.0 Ferritin-215 11/08/20- WBC-6.67 Hgb/Hct-10.5/33.7 Plt-197 ANC-5.02 Na-142 [...] ER+/MA+, Her2 IHC neg, LN 2/6, DCIS, cG2nN1p (stage IIA) Treatment: -12/07/2018 left mastectomy and [...] area. Their is a meal site in [place] that would be available to her. She [...] questions/concerns or new symptoms. Ethel Christianson MSN, COMMUNICABLE DISEASE SPECIALIST, AOCNP Medical Oncology documented in this encounter Plan of Treatment Upcoming Encounters Date Type Department Care Team (Late st Contact Info) Description 05/15/2024 3:30 PM EST Office Visit Radiation Oncology at [address] [phone] Patsy Shelton MD [facility] [place] [address] documented as of this encounter Visit Diagnoses Diagnosis Breast cancer, stage 2, left Iron deficiency anemia, unspecified iron deficiency anemia type documented in this encounter Care Teams Material Handler 2Nd Shift Relationship Specialty Start Date End Date Navid Avendaño MD [address] [place] [address] PCP - General Family Medicine 01/24/19 documented as of this encounter
--- OUTSIDE RECORDS SUMMARY | 2024-04-28 01:57 | XMS_ITS | Encounter Summary ---
Author Organization [facility] Address [facility] [place] [address] Care Team Providers Care Champion Of Sustainable Design Name Role Phone Navid Avendaño MD Primary Care Provider +1 -[phone] Encounter Details Date Type Department Care Team (Late Contact Info) Description 04/13/2023 Refill Hematology/Oncology at [address] [phone] Edgar Carreon MD [facility] [place] [address] 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 [...] EST Office Visit Radiation Oncology at [address] [phone] Patsy Shelton MD [facility] [place] [address] documented as of this encounter Visit Diagnoses Diagnosis 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
--- OUTSIDE RECORDS SUMMARY | 2024-04-28 01:57 | XMS_ITS | Encounter Summary ---
Author Organization [facility] Address [facility] [place] [place] [address] Care Team Providers Care Prisoner Classification Interviewer Name Role Phone Navid Avendaño MD Primary Care Provider +1 -[phone] Encounter Details Date Type Department Care Team (Late st Contact Info) Description 08/11/2022 Telephone Hematology/Oncology at [address] [phone] Alyssa Hunter Social History Tobacco [...] 08/11/2022 1:03 PM EST I SPOKE TO [facility] REGARDING HER DXA. THEY [...] EST Office Visit Radiation Oncology at [address] [phone] Patsy Shelton MD [facility] [place] [address] documented as of this encounter Visit Diagnoses Not on filedocumented in this encounter Care Teams Prisoner Classification Interviewer Relationship Specialty Start Date End Date Navid Avendaño MD [address] [facility] [address] [place] [address] PCP - General Family Medicine 01/24/19 documented as of this encounter
--- OUTSIDE RECORDS SUMMARY | 2024-04-28 01:57 | XMS_ITS ---
Author Organization [facility] [place] [address] Care Team Providers Care Social Staff Worker Name Role Phone Navid Avendaño MD Primary Care Provider +1 -[phone] Active Problems Problem Noted Date Diagnosed Date [...] treatments are documented for this patient in [facility]. Treatments may have been administered in another system.
--- OUTSIDE RECORDS SUMMARY | 2024-04-28 01:57 | XMS_ITS | Encounter Summary ---
Author Organization [facility] Address [facility] [place] [place] [address] Care Team Providers Care Personal Companion Name Role Phone Navid Avendaño MD Primary Care Provider +1 -[phone] Reason for Visit * Reason Comments Radiation Follow-up Encounter Details Date Type Department Care Team (Late st Contact Info) Description 04/21/2021 2:00 PM EDT Office Visit Radiation Oncology at [address] [phone] Patsy Shelton MD [facility] [place] [address] S/P radiotherapy Social History Tobacco Use Types [...] w/dominant pattern of micropapillary ca, 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 Sad that daughter moved to [place] for new job. Past Medical History: Diagnosis [...] ROBOTIC performed by Anthony Belle MD at [facility] OR ? ? PRO LAPAROSCOPY W TOT HYSTERECTUTERUS <=250 GRAM W TUBE/OVARY N/A 03/28/2015 LAPAROSCOPY,TOTAL HYST, UTERUS<250GM, EVER TYBE &/OR OVARY, ROBOTIC ASSIST performed by Anthony Belle MD at [facility] OR Cataract surg OU. Physical Exam [...] EST Office Visit Radiation Oncology at [address] [phone] Patsy Shelton MD [facility] [place] [address] documented as of this encounter Visit Diagnoses Diagnosis S/P radiotherapy Convalescence following radiotherapy documented in this encounter Care Teams Personal Companion Relationship Specialty Start Date End Date Navid Avendaño MD [address] [place] [address] PCP - General Family Medicine 01/24/19 documented as of this encounter
--- OUTSIDE RECORDS SUMMARY | 2024-04-28 01:57 | XMS_ITS | Encounter Summary ---
Author Organization [facility] Address [facility] [place] [place] [address] Care Team Providers Care Diversified Crops I Farmworker Name Role Phone Navid Avendaño MD Primary Care Provider +1 -[phone] Reason for Referral * Diagnostic Test (Routine) - New Request Specialty Diagnoses / Procedures Referred By Moses damian Referred To Contact Radiology Diagnoses S/P radiotherapy Procedures CT Chest w Contrast Patsy Shelton MD [facility] [place] [address] Referral ID Status Reason Start Date Expiration Date Visits Requested Visits Authorized [id number] New Request Specialty Service Requested 12/07/2023 06/07/2025 1 1 Reason for Visit * Reason Comments Follow-up Encounter Details Date Type Department Care Team (Late st Contact Info) Description 12/07/2023 12:00 PM EDT TH Visit (TeleHealth) Radiation Oncology at [address] [phone] Patsy Shelton MD [facility] [place] [address] S/P radiotherapy Social History Tobacco Use Types [...] scan result. Myesha & daughter Kadie (tel [phone]) on conference call. Informed that bone scan neg for met dz & that I think L chest wall discomfort due to scar tissue from surgery & xrt. Daughter Kadie asked about obtaining CT chest for further eval & I think this is reasonable. S: She has postponed further PT w/Jaylon Carrillo, PT @ [facility] until after further evaluation of L chest wall discomfort. The PT by Mr. Carrillo is for overall body/muscle aches. Decision Making/Plan: CT chest @ [facility]. Phone followup after CT to discuss result. [...] EST Office Visit Radiation Oncology at [address] [phone] Patsy Shelton MD [facility] [place] [address] Scheduled Orders Name Type Priority Associated Diagnoses Orde r Schedule CT Chest w Contrast Imaging Routine S/P radiotherapy Expected: 12/08/2023, Expires: 06/08/2024 Creatinine Lab Routine S/P radiotherapy Expected: 12/08/2023, Expires: 06/08/2024 documented as of this encounter Visit Diagnoses Diagnosis S/P radiotherapy Convalescence following radiotherapy documented in this encounter Care Teams Diversified Crops I Farmworker Relationship Specialty Start Date End Date Navid Avendaño MD [address] [place] [address] [address] [facility] [address] [place] [address] PCP - General Family Medicine 01/24/19 documented as of this encounter
--- OUTSIDE RECORDS SUMMARY | 2024-04-28 01:57 | XMS_ITS | Encounter Summary ---
Author Organization [facility] Address [facility] [place] [address] Care Team Providers Care Boiler House Operator Name Role Phone Navid Avendaño MD Primary Care Provider +1 -[phone] Encounter Details Date Type Department Care Team (Late st Contact Info) Description 08/05/2021 Orders Only Hematology/Oncology at [address] [phone] Ethel Christianson RN Iron deficiency anemia, unspecified [...] EST Office Visit Radiation Oncology at [address] [phone] Patsy Shelton MD [facility] [place] [address] documented as of this encounter Visit Diagnoses Diagnosis Iron deficiency anemia, unspecified iron deficiency anemia type 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
--- OUTSIDE RECORDS SUMMARY | 2024-04-28 01:57 | XMS_ITS | Encounter Summary ---
Author Organization [facility] [place] [address] Care Team Providers Care Correctional Supervising Cook Name Role Phone Navid Avendaño MD Primary Care Provider +1 -[phone] Encounter Details Date Type Department Care Team (Late st Contact Info) Description 03/29/2023 Telephone Radiation Oncology at [address] [phone] Celeste Flynn RN Social History [...] you please call PCP (Dr. Avendaño in [place]) office & let them know that she reports increased frequency of urination & has appt w/Dr. Avendaño 04/15/23? Patsy documented in this encounter Plan of Treatment Upcoming Encounters Date Type Department Care Team (Late st Contact Info) Description 05/15/2024 3:30 PM EST Office Visit Radiation Oncology at [address] [phone] Patsy Shelton MD [facility] [place] [address] documented as of this encounter Visit Diagnoses Not on filedocumented in this encounter Care Teams Correctional Supervising Cook Relationship Specialty Start Date End Date Navid Avendaño MD [address] [facility] [address] [place] [address] PCP - General Family Medicine 01/24/19 documented as of this encounter
--- OUTSIDE RECORDS SUMMARY | 2024-04-28 01:57 | XMS_ITS | Encounter Summary ---
Author Organization [facility] Address [facility] [place] [address] Care Team Providers Care Artist Blacksmith Name Role Phone Navid Avendaño MD Primary Care Provider +1 -[phone] Encounter Details Date Type Department Care Team (Late st Contact Info) Description 04/29/2023 Telephone Radiation Oncology at [address] [phone] Rachel Graham Social History Tobacco [...] EST Office Visit Radiation Oncology at [address] [phone] Patsy Shelton MD [facility] [place] [address] documented as of this encounter Visit Diagnoses Not on filedocumented in this encounter Care Teams Artist Blacksmith Relationship Specialty Start Date End Date Navid Avendaño MD [address] [place] [address] PCP - General Family Medicine 01/24/19 documented as of this encounter
--- OUTSIDE RECORDS SUMMARY | 2024-04-28 01:57 | XMS_ITS | Encounter Summary ---
Author Organization [facility] Address [facility] [place] [place] [address] Care Team Providers Care Nutrition Technician Name Role Phone Navid Avendaño MD Primary Care Provider +1 -[phone] Reason for Visit * Reason Comments Medication Refill Encounter Details Date Type Department Care Team (Late Contact Info) Description 03/20/2024 Refill Hematology/Oncology at [address] [phone] Edgar Carreon MD [facility] DR HEMATOLOGY [place] [address] 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 [...] EST Office Visit Radiation Oncology at [address] [phone] Patsy Shelton MD [facility] [place] [address] documented as of this encounter Visit Diagnoses Diagnosis 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
--- OUTSIDE RECORDS SUMMARY | 2024-04-28 01:57 | XMS_ITS | Encounter Summary ---
Author Organization [facility] Address [facility] [place] [place] [address] Care Team Providers Care Infrastructure Design Engineer Name Role Phone Navid Avendaño MD Primary Care Provider +1 -[phone] Encounter Details Date Type Department Care Team [...] EST Office Visit Radiation Oncology at [address] [address] Patsy Shelton MD [facility] [place] [address] documented as of this encounter Visit Diagnoses Not on filedocumented in this encounter Care Teams Infrastructure Design Engineer Relationship Specialty Start Date End Date Navid Avendaño MD [address] [place], [place] [address] PCP - General Family Medicine 01/24/19 documented as of this encounter
--- OUTSIDE RECORDS SUMMARY | 2024-04-28 01:57 | XMS_ITS | Encounter Summary ---
Author Organization [facility] [place] [address] Care Team Providers Care Ironer Sock Name Role Phone Navid Avendaño MD Primary Care Provider +1 -[phone] Reason for Visit * Consultation (Routine) - Closed Specialty Diagnoses / Procedures Referred By Moses damian Referred To Contact Dermatology Diagnoses Disorder of the skin and subcutaneous tissue, unspecified Scaly, Non-Healing Lesion in B Preauncular Areas; New Patient-Notes Received Procedures Consult Navid Avendaño MD [address] [place] [address] 1 [place] [address] Santa Jewell MD [address] [place] [id number] Referral ID Status Reason Start Date Expiration Date V isits Requested Visits Authorized [id number] Closed Consult, Test & Treat PCP Updated and/or Approved 10/03/2020 10/03/2021 1 1 Encounter Details Date Type Department Care Team ([facility] Contact Info) Description 01/01/2021 3:30 PM EDT Office Visit Dermatology at [address] [place] [address] Santa Jewell MD [address] [place] [address] Seborrheic keratoses; Inflamed seborrheic keratosis; Personal history [...] OF DERMATOLOGY Medical Dermatology Clinic Provider: Santa eJwell MD Patient's preferred name Myesha PAST MEDICAL [...] to revaluate ISK Santa Jewell MD Dermatology [facility] documented in this encounter Plan of Treatment Upcoming Encounters Date Type Department Care Team (Late st Contact Info) Description 05/15/2024 3:30 PM EST Office Visit Radiation Oncology at [address] [address] Patsy Shelton MD [facility] [place] [address] documented as of this encounter Visit Diagnoses Diagnosis Seborrheic keratoses Inflamed seborrheic keratosis Personal history of skin cancer Personal history of other malignant neoplasm of skin documented in this encounter Care Teams Ironer Sock Relationship Specialty Start Date End Date Navid Avendaño MD [address] [place] [address] [place] [address] PCP - General Family Medicine 01/24/19 documented as of this encounter
--- OUTSIDE RECORDS SUMMARY | 2024-04-28 01:57 | XMS_ITS | Encounter Summary ---
Author Organization [facility] Address [facility] [address] [place] [address] Care Team Providers Care Lab Coordinator Name Role Phone Navid Avendaño MD Primary Care Provider +1 -[phone] Reason for Visit * Reason Comments Follow-up Encounter Details Date Type Department Care Team (Late st Contact Info) Description 10/20/2021 2:00 PM EDT Office Visit Radiation Oncology at [address] [address] Patsy Shelton MD [facility] [address] [place] [address] S/P radiotherapy Social History Tobacco Use Types [...] ROBOTIC performed by Anthony Belle MD at [facility] MAIN OR ? ? PRO LAPAROSCOPY W TOT HYSTERECTUTERUS <=250 GRAM W TUBE/OVARY N/A 03/28/2015 LAPAROSCOPY,TOTAL HYST, UTERUS<250GM, EVER TYBE &/OR OVARY, ROBOTIC ASSIST performed by Anthony Belle MD at [facility] MAIN OR Cataract surg OU. Physical [...] A: LIZETH. P: Rtc Aug. Heme-Onc in mins in encounter. documented in this encounter Plan of Treatment Upcoming Encounters Date Type Department Care Team (Late st Contact Info) Description 05/15/2024 3:30 PM EST Office Visit Radiation Oncology at [address] [address] Patsy Shelton MD [facility] [address] [place] [address] documented as of this encounter Visit Diagnoses Diagnosis S/P radiotherapy Convalescence following radiotherapy documented in this encounter Care Teams Lab Coordinator Relationship Specialty Start Date End Date Navid Avendaño MD [address] [place] [address] [address] [facility] 1 [place] [address] PCP - General Family Medicine 01/24/19 documented as of this encounter
--- OUTSIDE RECORDS SUMMARY | 2024-04-28 01:57 | XMS_ITS | Encounter Summary ---
Author Organization [facility] Address [facility] [place] [place] [address] Care Team Providers Care Television Reporter Name Role Phone Navid Avendaño MD Primary Care Provider +1 -[phone] Encounter Details Date Type Department Care Team (Late st Contact Info) Description 02/16/2023 2:30 PM EDT Office Visit Hematology/Oncology at [address] [address] Edgar Carreon MD 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 Santizo returns to the [facility] for follow-up of breast cancer. Overall, [...] Tamoxifen alone A - Outside slide(s) labeled [id number], collection date 11/11/2018. Breast, left, core needle [...] report, 1+/Negative B - Outside slide(s) labeled [id number], collection date 12/07/2018. 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 - Ductal carcinoma in-situ (DCIS), high grade with comedonecrosis. - See Synoptic report. B - Lymph node, [place] #1, left axillary, excision (4 slides labeled B)- - Metastatic carcinoma to one of two lymph nodes. - The anita metastasis measures 1.9 cm. - Extranodal invasion is present. 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 C - Lymph node, left axilla, excision (3 slides labeled C)- - One benign node. D - Lymph node, [place] #2, left axillary, excision (1 slide labeled D)- - One benign node. E - Lymph node, [place] #3, left axillary, excision (2 slides labeled E)- - Two benign nodes. F - Medial Skin edge, excision (2 slides labeled F) - - Benign skin and subcutis. Specimen Procedure: Total mastectomy Specimen Laterality: Left Tumor Histologic Type: Invasive carcinoma of no special type (ductal, not otherwise specified) Histologic Type Comments: with micropapillary features Histologic Grade (Sami Histologic Score) Glandular (Acinar) / Tubular Differentiation: [...] of Lymph Nodes Examined: 6 Number of [place] Nodes Examined: 5 Pathologic Stage Classification (pTNM, [...] T. Bili-0.2 AST-14 ALT-25 Alk phos-101 Albumin-3.7 LsdX4P-1.0 Ferritin-215 11/08/20- WBC-6.67 Hgb/Hct-10.5/33.7 Plt-197 ANC-5.02 Na-142 [...] ER+/NC+, Her2 IHC neg, LN 2/6, DCIS, [id number] (stage IIA) Treatment: -12/07/2018 left mastectomy and [...] EST Office Visit Radiation Oncology at [address] [address] Patsy Shelton MD 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
--- OUTSIDE RECORDS SUMMARY | 2024-04-28 01:57 | XMS_ITS | Encounter Summary ---
Author Organization [facility] Address [facility] [place] [address] [place] [address] Care Team Providers Care Fried Cake Maker Name Role Phone Navid Avendaño MD Primary Care Provider +1 [phone] Encounter Details Date Type Department Care Team (Late st Contact Info) Description 09/08/2022 2:30 PM EST Office Visit Hematology/Oncology at [address] [phone] Edgar Lovett MD [facility] [address] [place] [address] Ethel Christianson, RN Hormone receptor positive malignant [...] with focal micropapillary features.gr3, LVI-, marilynn neg, ER+/MS+, Her2 IHC neg, LN 2/6, DCIS, [id number] (stage IIA) Patient Active Problem List Diagnosis [...] Interval history(09/08/22): Ms. Santizo returns to the [facility] [...] Cap Commonly known as: Keflex Stopped by: DEGAR LOVETT MD Review of Systems: Constitutional: Negative [...] Tamoxifen alone A ??- Outside slide(s) labeled [id number], collection date 11/11/2018. 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 On submitted slides (reviewed) - ER immunoreactivity: Positive (>90% cancer cells with immunostaining) Stain intensity: Intermediate and Strong MS immunoreactivity: Positive (>90% cancer cells with immunostaining) Stain intensity: Strong HER2 IHC - Per report, 1+/Negative B ??- Outside slide(s) labeled [id number], collection date 12/07/2018. 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 - Ductal carcinoma in-situ (DCIS), high grade with comedonecrosis. - See Synoptic report. B - Lymph node, [place] #1, left axillary, excision (4 slides labeled B)- - Metastatic carcinoma to one of two lymph nodes. - The anita metastasis measures 1.9 cm. - Extranodal invasion is present. 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 C - Lymph node, left axilla, excision (3 slides labeled C)- - One benign node. D - Lymph node, [place] #2, left axillary, excision (1 slide labeled D)- - One benign node. E - Lymph node, [place] #3, left axillary, excision (2 slides labeled [...] Lymph Nodes Examined: ?6 ? Number of [place] Nodes Examined: ?5 Pathologic Stage Classification (pTNM, [...] T. 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
--- OUTSIDE RECORDS SUMMARY | 2024-04-28 01:57 | XMS_ITS | Encounter Summary ---
Author Organization [facility] [place] [address] Care Team Providers Care Spinning Bath Patroller Name Role Phone Navid Avendaño MD Primary Care Provider +1 -[phone] Encounter Details Date Type Department Care Team (Late Contact Info) Description 02/20/2021 Ancillary Procedure Radiology Library at [facility] [place] [address] Navid Avendaño MD [address] [place], [place] [id number] Social History Tobacco Use Types Packs/Day Years [...] EST Office Visit Radiation Oncology at [address] [address] Patsy Shelton MD [facility] [place] [address] documented as of this encounter Procedures Procedure Name Priority Date/Time Associated Diagnosis Comments FILM LIBRARY STORAGE ONLY MAMMO Routine 02/20/2021 12:00 AM EDT documented in this encounter Results * Film Library- Storage Only Mammo (02/20/2021 12:00 AM EDT) Narrative KEYANNA BOUDREAUX - 03/04/2021 1:48 PM EDT This exam is auto-finalizing. It's purpose is for storage only. Navid Avendaño MD IMG FILM LIBRARY ORDERABLES [place], [place] documented in this encounter Visit Diagnoses Not on filedocumented in this encounter Care Teams Spinning Bath Patroller Relationship Specialty Start Date End Date Navid Avendaño MD [address] [place] [address] PCP - General Family Medicine 01/24/19 documented as of this encounter
--- OUTSIDE RECORDS SUMMARY | 2024-04-28 01:58 | XMS_ITS | Encounter Summary ---
Author Organization [facility] Address [facility] [place] [address] Care Team Providers Care Vegetable Thinner Name Role Phone Navid Avendaño MD Primary Care Provider +1 -[phone] Encounter Details Date Type Department Care Team (Late Contact Info) Description 04/04/2020 Telephone Hematology/Oncology at [address] [phone] Kendy Fu Social History Tobacco [...] Wednesday. Labs slips have been faxed to [facility] and I asked that Myesha make an appt for labs as walk ins are not permitted at this time. documented in this encounter Plan of Treatment Upcoming Encounters Date Type Department Care Team (Late Contact Info) Description 05/15/2024 3:30 PM EST Office Visit Radiation Oncology at [address] [phone] Patsy Shelton MD [facility] [place] [address] documented as of this encounter Visit Diagnoses Not on filedocumented in this encounter Care Teams Vegetable Thinner Relationship Specialty Start Date End Date Navid Avendaño MD [address] [place] [address] PCP - General Family Medicine 01/24/19 documented as of this encounter
--- OUTSIDE RECORDS SUMMARY | 2024-04-28 01:58 | XMS_ITS | Encounter Summary ---
Author Organization [facility] Address [facility] [place] [place] [address] Care Team Providers Care Shank Cementer Hand Name Role Phone Navid Avendaño MD Primary Care Provider +1 -[phone] Reason for Referral * Consultation (Routine) - Closed Specialty Diagnoses / Procedures Referred By Contac t Referred To Contact Diagnoses Anemia, unspecified type Iron deficiency anemia, unspecified iron deficiency anemia type Edgar Carreon MD [facility] DR HEMATOLOGY [place] [address] Kelli Bedolla MD [address] [place] [address] Referral ID Status Reason Start Date Expiration Date V isits Requested Visits Authorized [id number] Closed Consult, Test & Treat Non PCP 04/09/2020 10/06/2020 1 1 Encounter Details Date Type Department Care Team (Late st Contact Info) Description 04/09/2020 1:00 PM EDT Office Visit Hematology/Oncology at [address] [phone] Edgar Carreon MD [facility] DR HEMATOLOGY [place] [address] Ethel Christianson RN [facility] current use of aromatase inhibitor; Hormone receptor [...] with focal micropapillary features.gr3, LVI-, marilynn neg, ER+/MO+, Her2 IHC neg, LN 2/6, DCIS, [id number] (stage IIA) Patient Active Problem List Diagnosis [...] did some work-up and refer her to sales architect who she is going to see in [...] Tamoxifen alone A ??- Outside slide(s) labeled [id number], collection date 11/11/2018. 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 On submitted slides (reviewed) - ER immunoreactivity: Positive (>90% cancer cells with immunostaining) Stain intensity: Intermediate and Strong MO immunoreactivity: Positive (>90% cancer cells with immunostaining) Stain intensity: Strong HER2 IHC - Per report, 1+/Negative B ??- Outside slide(s) labeled [id number], collection date 12/07/2018. 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 - Ductal carcinoma in-situ (DCIS), high grade with comedonecrosis. - See Synoptic report. B - Lymph node, [place] #1, left axillary, excision (4 slides labeled B)- - Metastatic carcinoma to one of two lymph nodes. - The anita metastasis measures 1.9 cm. - Extranodal invasion is present. 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 C - Lymph node, left axilla, excision (3 slides labeled C)- - One benign node. D - Lymph node, [place] #2, left axillary, excision (1 slide labeled D)- - One benign node. E - Lymph node, [place] #3, left axillary, excision (2 slides labeled E)- - Two benign nodes. F - Medial Skin edge, excision (2 slides labeled F) - - Benign skin and subcutis. Specimen ?Procedure: ??Total mastectomy ?Specimen Laterality: ?? Left Tumor ?Histologic Type: ?? Invasive carcinoma of no special type (ductal, not ? otherwise specified) ?Histologic Type Comments: ?? with micropapillary features ?Histologic Grade ([place] Histologic Score) ? Glandular (Acinar) / Tubular [...] Lymph Nodes Examined: ?6 ? Number of [place] Nodes Examined: ?5 Pathologic Stage Classification (pTNM, AJCC 8th Edition) ?Primary Tumor (Invasive Carcinoma) (pT): ?pT2 ?Regional Lymph Nodes (pN) ? Category (pN): ?? pN1a Labs: 04/04/2020 WBC 6, hemoglobin 10.2, platelet count 209, ANC 4.7, haptoglobin 185, iron 37, [id number], transferrin saturation 12%, ferritin 31, BUN 15, [...] with focal micropapillary features.gr3, LVI-, marilynn neg, ER+/MO+, Her2 IHC neg, LN 2/6, DCIS, [id number] (stage IIA) Treatment: -12/07/2018 left mastectomy and [...] arthritis. Meanwhile she will be seen by sales architect as well. I will see her back [...] disease. She is going to see a sales architect in May. 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
--- OUTSIDE RECORDS SUMMARY | 2024-04-28 01:58 | XMS_ITS | Encounter Summary ---
Author Organization [facility] [place] [place] [address] Care Team Providers Care Product Development Director Name Role Phone Navid Avendaño MD Primary Care Provider +1 -[phone] Encounter Details Date Type Department Care Team (Late Contact Info) Description 06/08/2019 Orders Only [place] [address] Edgar Carreon MD [facility] [address] [place] [address] 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 [...] EST Office Visit Radiation Oncology at [address] [phone] Patsy Shelton MD [facility] [place] [address] documented as of this encounter Visit Diagnoses Diagnosis 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
--- OUTSIDE RECORDS SUMMARY | 2024-04-28 01:58 | XMS_ITS | Encounter Summary ---
Author Organization [facility] Address [facility] [place] [address] Care Team Providers Care Roll Edge Machine Operator Name Role Phone Navid Avendaño MD Primary Care Provider +1 -[phone] Reason for Visit * Reason Onset Date Comments Public Health Screening 08/09/2020 vaccine Encounter Details Date Type Department Care Team (Late Contact Info) Description 08/09/2020 Telephone Hematology Oncology at [address] [phone] Delmis Dewey, RN Public Health [...] EST Office Visit Radiation Oncology at [address] [phone] Patsy Shelton MD [facility] [place] [address] documented as of this encounter Visit Diagnoses Not on filedocumented in this encounter Care Teams Roll Edge Machine Operator Relationship Specialty Start Date End Date Navid Avendaño MD [address] [place] [address] PCP - General Family Medicine 01/24/19 documented as of this encounter
--- OUTSIDE RECORDS SUMMARY | 2024-04-28 01:58 | XMS_ITS | Encounter Summary ---
Author Organization [facility] Address [facility] [place] [address] Care Team Providers Care Hydraulic Modeling Engineer Name Role Phone Navid Avendaño MD Primary Care Provider +1 -[phone] Encounter Details Date Type Department Care Team (Late st Contact Info) Description 03/14/2019 Notes Only Hematology/Oncology at [address] [phone] Stephanie Stinson MSW OFFICE OF CARE MANAGEMENT [...] Offered support. Reminded pt and daughter of SPEECH COACH availability and will follow for support and resources. documented in this encounter Plan of Treatment Upcoming Encounters Date Type Department Care Team (Late st Contact Info) Description 05/15/2024 3:30 PM EST Office Visit Radiation Oncology at [address] [phone] Patsy Shelton MD [facility] [place] [address] documented as of this encounter Visit Diagnoses Not on filedocumented in this encounter Care Teams Hydraulic Modeling Engineer Relationship Specialty Start Date End Date Navid Avendaño MD [address] [place] [address] PCP - General Family Medicine 01/24/19 documented as of this encounter
--- OUTSIDE RECORDS SUMMARY | 2024-04-28 01:58 | XMS_ITS | Encounter Summary ---
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 Breast, left, core needle [...] report, 1+/Negative B ??- Outside slide(s) labeled [id number], collection date 12/07/2018. 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 - Ductal carcinoma in-situ (DCIS), high grade with comedonecrosis. - See Synoptic report. B - Lymph node, [place] #1, left axillary, excision (4 slides labeled B)- - Metastatic carcinoma to one of two lymph nodes. - The anita metastasis measures 1.9 cm. - Extranodal invasion is present. 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 C - Lymph node, left axilla, excision (3 slides labeled C)- - One benign node. D - Lymph node, [place] #2, left axillary, excision (1 slide labeled D)- - One benign node. E - Lymph node, [place] #3, left axillary, excision (2 slides labeled E)- - Two benign nodes. F - Medial Skin edge, excision (2 slides labeled F) - - Benign skin and subcutis. Specimen ?Procedure: ??Total mastectomy ?Specimen Laterality: ?? Left Tumor ?Histologic Type: ?? Invasive carcinoma of no special type (ductal, not ? otherwise specified) ?Histologic Type Comments: ?? with micropapillary features ?Histologic Grade ([place] Histologic Score) ? Glandular (Acinar) / Tubular [...] Lymph Nodes Examined: ?6 ? Number of [place] Nodes Examined: ?5 Pathologic Stage Classification (pTNM, [...] ER+/MD+, Her2 IHC neg, LN 2/6, DCIS, [id number] (stage IIA) Treatment: -12/07/2018 left mastectomy and [...] EST Office Visit Radiation Oncology at [address] [phone] Patsy Shelton MD [facility] [place] [address] documented as of this encounter Procedures Procedure [...] menopausal state Asymptomatic postmenopausal status (age-related) (natural) watermaster current use of aromatase inhibitor Use of aromatase inhibitors documented in this encounter Care Teams Water Filter Cleaner Relationship Specialty Start Date End Date Navid Avendaño MD [address] [place] [address] PCP - General Family Medicine 01/24/19 documented as of this encounter
--- OUTSIDE RECORDS SUMMARY | 2024-04-28 01:58 | XMS_ITS | Encounter Summary ---
[facility] [place] [address] Care Team Providers Care Turbinated Bone Grinder Name Role Phone Navid Avendaño MD Primary Care Provider +1 [phone] Encounter Details Date Type Department Care Team (Late st Contact Info) Description 02/21/2019 10:30 AM EDT Office Visit Hematology/Oncology at [address] [phone] Ivana Rossi APRN [address] [place] [address] Endometrial adenocarcinoma Social History Tobacco Use [...] ER+/MO+, Her2 IHC neg, LN 2/6, DCIS, [id number] (stage IIA) HPI: Myesha Burdicksis referred by [...] EST Office Visit Radiation Oncology at [address] [address] Patsy Shelton MD [facility] [place] [address] documented as of this encounter Visit Diagnoses Diagnosis Endometrial adenocarcinoma Malignant neoplasm of corpus uteri, except isthmus documented in this encounter Care Teams Turbinated Bone Grinder Relationship Specialty Start Date End Date Navid Avendaño MD [address] [place] [address] PCP - General Family Medicine 01/24/19 documented as of this encounter
--- OUTSIDE RECORDS SUMMARY | 2024-04-28 01:58 | XMS_ITS | Encounter Summary ---
Author Organization [facility] Address [facility] [place] [address] Care Team Providers Care Classifier Name Role Phone Navid Avendaño MD Primary Care Provider +1 [phone] Encounter Details Date Type Department Care Team (Late st Contact Info) Description 05/28/2020 10:00 AM EST Office Visit Hematology/Oncology at [address] [phone] Edgar Carreon MD [facility] [address] HEMATOLOGY [place] [address] Ethel Christianson RN Breast cancer, stage 2, left; Anemia, unspecified type; penitentiary current use of aromatase inhibitor Social History [...] ER+/MD+, 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 Santizo returns to the [facility] for follow-up of breast cancer. She is currently on letrozole daily which she started on May. Plan placed medication. Myesha developed joint pain, stiffness and numbness tingling in the hands about 2 weeks ago. It does interfere with her daily activity. She started to drop things from her hands.Dr. Avendaño did some work-up and refer her to student education specialist who she is going to [...] Tamoxifen alone A ??- Outside slide(s) labeled [id number], collection date 11/11/2018. Breast, left, core needle [...] report, 1+/Negative B ??- Outside slide(s) labeled [id number], collection date 12/07/2018. 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 - Ductal carcinoma in-situ (DCIS), high grade with comedonecrosis. - See Synoptic report. B - Lymph node, [place] #1, left axillary, excision (4 slides labeled B)- - Metastatic carcinoma to one of two lymph nodes. - The anita metastasis measures 1.9 cm. - Extranodal invasion is present. 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 C - Lymph node, left axilla, excision (3 slides labeled C)- - One benign node. D - Lymph node, [place] #2, left axillary, excision (1 slide labeled D)- - One benign node. E - Lymph node, [place] #3, left axillary, excision (2 slides labeled E)- - Two benign nodes. F - Medial Skin edge, excision (2 slides labeled F) - - Benign skin and subcutis. Specimen ?Procedure: ??Total mastectomy ?Specimen Laterality: ?? Left Tumor ?Histologic Type: ?? Invasive carcinoma of no special type (ductal, not ? otherwise specified) ?Histologic Type Comments: ?? with micropapillary features ?Histologic Grade ([place] Histologic Score) ? Glandular (Acinar) / Tubular [...] Lymph Nodes Examined: ?6 ? Number of [place] Nodes Examined: ?5 Pathologic Stage Classification (pTNM, AJCC 8th Edition) ?Primary Tumor (Invasive Carcinoma) (pT): ?pT2 ?Regional Lymph Nodes (pN) ? Category (pN): ?? 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 Meanwhile she will be seen by student education specialist as well. I will see [...] disease. She is going to see a student education specialist in May. We may consider [...] [place] 3. Next visit in 5 weeks Myesah is accompanied by her daughter today. The voiced understanding of the plan and was given an opportunity to ask questions which I answered to the best of my ability.Myesha understands she can call the clinic between visits with any questions/concerns or new symptoms. 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 Santizo returns to the [facility] for follow-up of breast cancer. She held letrozole for 6 weeks following with no improvement in her stiffness and joint ache. She was seen by student education specialist and was referred to a [...] Tamoxifen alone A ??- Outside slide(s) labeled [id number], collection date 11/11/2018. Breast, left, core needle [...] report, 1+/Negative B ??- Outside slide(s) labeled [id number], collection date 12/07/2018. 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 - Ductal carcinoma in-situ (DCIS), high grade with comedonecrosis. - See Synoptic report. B - Lymph node, [place] #1, left axillary, excision (4 slides labeled B)- - Metastatic carcinoma to one of two lymph nodes. - The anita metastasis measures 1.9 cm. - Extranodal invasion is present. 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 C - Lymph node, left axilla, excision (3 slides labeled C)- - One benign node. D - Lymph node, [place] #2, left axillary, excision (1 slide labeled D)- - One benign node. E - Lymph node, [place] #3, left axillary, excision (2 slides labeled E)- - Two benign nodes. F - Medial Skin edge, excision (2 slides labeled F) - - Benign skin and subcutis. Specimen ?Procedure: ??Total mastectomy ?Specimen Laterality: ?? Left Tumor ?Histologic Type: ?? Invasive carcinoma of no special type (ductal, not ? otherwise specified) ?Histologic Type Comments: ?? with micropapillary features ?Histologic Grade ([place] Histologic Score) ? Glandular (Acinar) / Tubular [...] Lymph Nodes Examined: ?6 ? Number of [place] Nodes Examined: ?5 Pathologic Stage Classification (pTNM, AJCC 8th Edition) ?Primary Tumor (Invasive Carcinoma) (pT): ?pT2 ?Regional Lymph Nodes (pN) ? Category (pN): ?? pN1a Labs: 04/04/2020 WBC 6, hemoglobin 10.2, platelet count 209, ANC 4.7, haptoglobin 185, iron 37, FIDT384, transferrin saturation 12%, ferritin 31, BUN 15, [...] ER+/MD+, Her2 IHC neg, LN 2/6, DCIS, [id number] (stage IIA) Treatment: -12/07/2018 left mastectomy and [...] arthritis. Meanwhile she will be seen by student education specialist as well. I will see [...] disease. She is going to see a student education specialist in May. We may consider [...] EST Office Visit Radiation Oncology at [address] [address] Patsy Shelton MD [facility] [place] [address] documented as of this encounter Visit Diagnoses Diagnosis Breast cancer, stage 2, left Anemia, unspecified type intermediate card tender current use of aromatase inhibitor Use of aromatase inhibitors documented in this encounter Care Teams Classifier Relationship Specialty Start Date End Date Navid Avendaño MD [address] [place] [address] PCP - General Family Medicine 01/24/19 documented as of this encounter
--- OUTSIDE RECORDS SUMMARY | 2024-04-28 01:58 | XMS_ITS | Encounter Summary ---
Author Organization Formerly [facility] [place] [address] Care Team Providers Care Cancer Genetics Assistant Name Role Phone Navid Avendaño MD Primary Care Provider [phone] [phone] Reason for Visit * Reason Onset Date Comments Prior Authorization 02/07/2019 Oncotype Dx Encounter Details Date Type Department Care Team (Late Contact Info) Description 02/07/2019 Telephone Hematology/Oncology at [address] [phone] Patel Berumen RN Prior Authorization [...] 02/07/2019 3:30 PM EDT Fax received from [employer] requesting Medical Records in order to authorize [...] PM EST Office Visit Radiation Oncology at [address] [address] Patsy Shelton MD [facility] [place] [address] documented as of this encounter Visit Diagnoses Not on filedocumented in this encounter Care Teams Cancer Genetics Assistant Relationship Specialty Start Date End Date Navid Avendaño MD [address] [place] [address] [address] [place] [address] PCP - General Family Medicine 01/24/19 documented as of this encounter
--- OUTSIDE RECORDS SUMMARY | 2024-04-28 01:58 | XMS_ITS | Encounter Summary ---
Author Organization [facility] Address [facility] [place] [place] [address] Care Team Providers Care Inside Sales Supervisor Name Role Phone Navid Avendaño MD Primary Care Provider [phone] [phone] Reason for Visit * Reason Comments On Treatment Visit Encounter Details Date Type Department Care Team (Late st Contact Info) Description 04/18/2019 9:30 AM EDT Office Visit Radiation Oncology at [address] [phone] Patsy Shelton MD [facility] [place] [address] Malignant neoplasm of lower-inner quadrant of left [...] For details, see electronic film record in [employer] System. Changes in Medical Condition: Tylenol arthritis [...] EST Office Visit Radiation Oncology at [address] [address] Patsy Shelton MD [facility] [place] [address] documented as of this encounter Visit Diagnoses Diagnosis Malignant neoplasm of lower-inner quadrant of left female breast, unspecified estrogen receptor status documented in this encounter Care Teams Inside Sales Supervisor Relationship Specialty Start Date End Date Navid Avendaño MD [address] [place] [address] PCP - General Family Medicine 01/24/19 documented as of this encounter
--- OUTSIDE RECORDS SUMMARY | 2024-04-28 01:58 | XMS_ITS | Encounter Summary ---
Author Organization [facility] Address [facility] [place] [place] [address] Care Team Providers Care Ventilated Rib Fitter Name Role Phone Navid Avendaño MD Primary Care Provider +1 [phone] Reason for Visit * Reason Comments On Treatment Visit Encounter Details Date Type Department Care Team (Late st Contact Info) Description 05/02/2019 9:45 AM EDT Office Visit Radiation Oncology at [address] [phone] Patsy Shelton MD [facility] [place] [address] Malignant neoplasm of lower-inner quadrant of left [...] w/dominant pattern of micropapillary ca, gr 3, ER+UT+, Her2 IHC neg, s/p mastectomy & SNB, [...] EST Office Visit Radiation Oncology at [address] [phone] Patsy Shelton MD [facility] [place] [place] [address] documented as of this encounter Visit Diagnoses Diagnosis Malignant neoplasm of lower-inner quadrant of left female breast, unspecified estrogen receptor status documented in this encounter Care Teams Ventilated Rib Fitter Relationship Specialty Start Date End Date Navid Avendaño MD [address] [facility] [facility] [address] [place] [address] PCP - General Family Medicine 01/24/19 documented as of this encounter
--- OUTSIDE RECORDS SUMMARY | 2024-04-28 01:58 | XMS_ITS | Encounter Summary ---
Author Organization [facility] Address [facility] [place] [address] Care Team Providers Care Home School Coordinator Name Role Phone Maya Burden MD Primary Care Provider [phone] Encounter Details Date Type Department Care Team (Latest Contact Info) Description 12/21/2018 3:33 PM EDT - 12/21/2018 11:59 PM EDT [place] [phone] Discharge Disposition: Home Social History Tobacco Use [...] Sig Dispensed Refills Start Date End Date lisinopril (PRINIVIL;ZESTRIL) 10 mg Tablet Daily 05/02/2013 metFORMIN (GLUCOPHAGE) 500 mg Tablet Twice a day 05/03/2014 omeprazole (PRILOSEC) 20 mg capsule Take by mouth 2 times daily. 04/08/2006 multivitamin (DAILY MULTIPLE) tablet 04/08/2006 senna-docusate (PERICOLACE) 8.6-50 mg Tablet Take 1 tablet by mouth daily. 60 tablet 0 03/29/2015 acetaminophen (TYLENOL) 500 mg Tablet As needed 12/24/2012 ibuprofen (ADVIL;MOTRIN) 600 mg Tablet Take 1 tablet by mouth every 6 hours as needed for Pain. 30 tablet 0 03/29/2015 09/30/2020 aspirin 81 mg Tablet, Delayed Release (E.C.) Take 81 mg by mouth daily. 12/24/2012 03/21/2024 vitamin E 400 unit Capsule Daily 12/24/2012 [...] EST Office Visit Radiation Oncology at [address] [phone] Patsy Shelton MD [facility] [place] [address] documented as of this encounter Procedures Procedure Name Priority Date/Time Associated Diagnosis Comments SURGICAL PATHOLOGY REPORT Routine 12/21/2018 3:33 PM EDT documented in this encounter Results * Surgical Pathology Report (12/21/2018 3:33 PM EDT) Final Diagnosis [id number] ? Location: [facility] The signing pathologist has (i) examined the relevant preparation(s) for the specimen(s) and (ii) rendered or confirmed the diagnosis(es). . ?Surgical Pathology DIAGNOSIS CONSULTATION CASE A ??- Outside slide(s) labeled [id number], collection date 11/11/2018. Breast, left, core needle [...] report, 1+/Negative B ??- Outside slide(s) labeled [id number], collection date 12/07/2018. 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 - Ductal carcinoma in-situ (DCIS), high grade with comedonecrosis. - See Synoptic report. B - Lymph node, [place] #1, left axillary, excision (4 slides labeled B)- - Metastatic carcinoma to one of two lymph nodes. - The anita metastasis measures 1.9 cm. - Extranodal invasion is present. 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 C - Lymph node, left axilla, excision (3 slides labeled C)- - One benign node. D - Lymph node, [place] #2, left axillary, excision (1 slide labeled D)- - One benign node. E - Lymph node, [place] #3, left axillary, excision (2 slides labeled [...] ?? with micropapillary features ? Histologic Grade ([place] Histologic Score) ?Glandular (Acinar) / Tubular Differentiation: [...] of Lymph Nodes Examined: ?6 ?Number of [place] Nodes Examined: ?5 Pathologic Stage Classification (pTNM, AJCC 8th Edition) ? Primary Tumor (Invasive Carcinoma) (pT): ?pT2 ? Regional Lymph Nodes (pN) ?Category (pN): ?? pN1a CAP eCC August 2017 Agile Release Electronically signed by: ??Taylor Alejandro DO Verified: ??12/26/2018 ?Pathologist Performed at: ??-[facility] Dept. of Pathology, [place], [place] CLINICAL INFORMATION Specimen Submitted: CONSULTATION CASE A - 6 slide(s) labeled [id number], collection date 11/11/2018. B - 34 slide(s) labeled [id number], collection date 12/07/2018. [id number] Report to: [facility] Surgical Pathology Department [facility], [facility], 2nd Floor [address] [place], [place] ??[address] . SPECIMEN PROCESSING [facility] ([facility]) pathology slide(s) are reviewed. ??Refer to Diagnosis and Specimen Submitted for specific case information. For the full text of the [facility] ([facility]) report(s) please refer to Non- Documentation Pathology in the electronic health record (eDH). 12/26/2018 1:31 PM EDT [facility] Consult Case 12/21/2018 3:33 PM EDT 12/21/2018 3:33 PM EDT Consult Case 12/21/2018 3:33 PM EDT 12/21/2018 3:33 PM EDT Edgar Carreon MD PATHOLOGY/CYTOLOGY O RDERABLES [facility] [place] [address] documented in this encounter Visit Diagnoses Not on filedocumented in this encounter Care Teams Home School Coordinator Relationship Specialty Start Date End Date Maya Burden MD [address] [place] [address] PCP - General 05/27/10 01/23/19 documented as of this encounter
--- OUTSIDE RECORDS SUMMARY | 2024-04-28 01:58 | XMS_ITS | Encounter Summary ---
Author Organization [facility] [place] [address] Care Team Providers Care Master Coastal Waters Name Role Phone Navid Avendaño MD Primary Care Provider [phone] [phone] Reason for Visit * Reason Onset Date Comments Questions 03/15/2019 Question re upco shakila appointment Encounter Details Date Type Department Care Team (Late st Contact Info) Description 03/15/2019 Telephone Hematology/Oncology at [address] [phone] Cnadice Lozano, RN Questions (Question re upcoming appointment) [...] Docetaxel 03/14/19 and is currently inpatient at [facility]. Geovanna is inquiring what next steps are. 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 It is unknown how long she will be inpatient. The bilingual secretary for Dr. Carreon is working on a follow up appointment for the patient to see Dr. Carreon and is aware to call Geovanna who will be bringing Myesha to the appointment. Outcome of call: Crown Attacher will call Geovanna with appointment date and time. Geovanna verbalizes understanding and has no further questions. Dr. Carreon is updated with this note. documented in this encounter Plan of Treatment Upcoming Encounters Date Type Department Care Team (Late st Contact Info) Description 05/15/2024 3:30 PM EST Office Visit Radiation Oncology at [address] [phone] Patsy Shelton MD [facility] [place] [address] documented as of this encounter Visit Diagnoses Not on filedocumented in this encounter Care Teams Master Coastal Waters Relationship Specialty Start Date End Date Navid Avendaño MD [address] [place] [address] [address] [place] [address] PCP - General Family Medicine 01/24/19 documented as of this encounter
--- OUTSIDE RECORDS SUMMARY | 2024-04-28 01:58 | XMS_ITS | Encounter Summary ---
Author Organization [facility] Address [facility] [place] [place] [address] Care Team Providers Care Hot Shot Name Role Phone Navid Avendaño MD Primary Care Provider [phone] [phone] Reason for Visit * Reason Onset Date Comments Follow-up 02/23/2019 Encounter Details Date Type Department Care Team (Late Contact Info) Description 02/23/2019 Telephone Hematology/Oncology at [address] [phone] Penny Chew RN Follow-up Social [...] EST Office Visit Radiation Oncology at [address] [phone] Patsy Shelton MD [facility] [place] [address] documented as of this encounter Visit Diagnoses Not on filedocumented in this encounter Care Teams Hot Shot Relationship Specialty Start Date End Date Navid Avendaño MD [address] [place] [address] PCP - General Family Medicine 01/24/19 documented as of this encounter
--- OUTSIDE RECORDS SUMMARY | 2024-04-28 01:58 | XMS_ITS | Encounter Summary ---
Author Organization [facility] [place] [place] [address] Care Team Providers Care Lean Process Deployment Consultant Name Role Phone Navid Avendaño MD Primary Care Provider [phone] [phone] Reason for Visit * Reason Onset Date Comments Diarrhea 03/09/2019 Encounter Details Date Type Department Care Team (Late st Contact Info) Description 03/09/2019 Telephone Hematology/Oncology at [address] [phone] Penny Chew RN Diarrhea Social [...] taking it when she goes up to [place] tomorrowand if her stools get loose she [...] PM EST Office Visit Radiation Oncology at [address] [address] Patsy Shelton MD [facility] [place] [address] documented as of this encounter Visit Diagnoses Not on filedocumented in this encounter Care Teams Lean Process Deployment Consultant Relationship Specialty Start Date End Date Navid Avendaño MD [address] [place] [address] PCP - General Family Medicine 01/24/19 documented as of this encounter
--- OUTSIDE RECORDS SUMMARY | 2024-04-28 01:58 | XMS_ITS | Encounter Summary ---
Author Organization [facility] [place] [place] [address] Care Team Providers Care Undertaker Assistant Name Role Phone Navid Avendaño MD Primary Care Provider +1 -[phone] Encounter Details Date Type Department Care Team (Late Contact Info) Description 05/16/2019 Notes Only Radiation Oncology at [address] [phone] Patsy Shelton MD [facility] [place] [address] Social History Tobacco Use Types Packs/Day Years [...] EST Office Visit Radiation Oncology at [address] [phone] Patsy Shelton MD [facility] [place] [address] documented as of this encounter Visit Diagnoses Not on filedocumented in this encounter Care Teams Undertaker Assistant Relationship Specialty Start Date End Date Navid Avendaño MD [address] [place] [address] PCP - General Family Medicine 01/24/19 documented as of this encounter
--- OUTSIDE RECORDS SUMMARY | 2024-04-28 01:58 | XMS_ITS | Encounter Summary ---
Author Organization [facility] Address [facility] [place] [place] [address] Care Team Providers Care Project Superintendent Name Role Phone Navid Avendaño MD Primary Care Provider +1 -[phone] Reason for Visit * Reason Comments Chemotherapy Cycle 2 Day 1 Doceta xel, Cytoxan * Treatment/Therapy Plan Authorization (Routine) - Closed Specialty Diagnoses / Procedures Referred By Contgabbi t Referred To Contact Diagnoses Breast cancer, stage 2, left Procedures TC PALONOSETRON HCL, 25MCG, INJECTION (ALOXI) TC CYCLOPHOSPHAMIDE, 100MG (CYTOXAN) TC DOCETAXEL, 1MG, INJECTION TC PEGFILGRASTIM, 6MG, INJECTION Edgar Carreon MD [facility] DR HEMATOLOGY [place] [address] [facility] Hem Onc Office [address] [place] [id number] Referral ID Status Reason Start Date Expiration Date Visits Re quested Visits Authorized [id number] Closed 02/03/2019 02/03/2020 6 6 Encounter Details Date Type Department Care Team (Late st Contact Info) Description 03/14/2019 11:00 AM EDT Infusion Hematology Oncology at [address] [phone] Breast cancer, stage 2, left [...] Attempted to call report to ED, only unit secretary available to speak with me, I told her the medication that she was receiving and I also faxed info to them at [phone]. Pt did not receive Cytoxan or OnPro. ASSESSMENT Myesha Santizo was sent to [facility] ED via ambulance. PLAN Return to clinic per routine. documented in this encounter Plan of Treatment Upcoming Encounters Date Type Department Care Team (Late st Contact Info) Description 05/15/2024 3:30 PM EST Office Visit Radiation Oncology at [address] [phone] Patsy Shelton MD [facility] [place] [address] documented as of this encounter Procedures Procedure [...] mL/hr documented in this encounter Care Teams Project Superintendent Relationship Specialty Start Date End Date Navid Avendaño MD [address] [place] [address] PCP - General Family Medicine 01/24/19 documented as of this encounter
--- OUTSIDE RECORDS SUMMARY | 2024-04-28 01:58 | XMS_ITS | Encounter Summary ---
Author Organization [facility] Address [facility] [place] [address] Care Team Providers Care Electric Arc Welder Name Role Phone Navid Avendaño MD Primary Care Provider +1 [phone] Encounter Details Date Type Department Care Team (Late st Contact Info) Description 02/21/2019 Notes Only Hematology/Oncology at [address] [phone] Stephanie Stinson MSW OFFICE OF CARE MANAGEMENT [...] herself. If she needs help with rides [facility] will arrange this. Work/Finances/Insurance: Pt is retired. She has [employer] for insurance. Advance Directives: Pt thinks she [...] at this time. Plan: Informed pt of [facility] availability and will follow for support and resources. documented in this encounter Plan of Treatment Upcoming Encounters Date Type Department Care Team (Late st Contact Info) Description 05/15/2024 3:30 PM EST Office Visit Radiation Oncology at [address] [phone] Patsy Shelton MD [facility] [place] [address] documented as of this encounter Visit Diagnoses Not on filedocumented in this encounter Care Teams Electric Arc Welder Relationship Specialty Start Date End Date Navid Avendaño MD [address] [address] PCP - General Family Medicine 01/24/19 documented as of this encounter
--- OUTSIDE RECORDS SUMMARY | 2024-04-28 01:58 | XMS_ITS | Encounter Summary ---
Author Organization [facility] Address [facility] [place] [address] Care Team Providers Care Senior Product Development Scientist Name Role Phone Navdi Avendaño MD Primary Care Provider +1 [phone] Reason for Visit * Reason Onset Date Comments Follow-up 02/22/2019 s/p first chemo infusion Encounter Details Date Type Department Care Team (Late st Contact Info) Description 02/22/2019 Telephone Hematology/Oncology at [address] [phone] Patel Berumen, RN Follow-up (s/p [...] re-assess bowels and lightheadedness. 2. Reinforced to patient/care-advertising analyst to call facility 25/01 with any new/worsening signs and symptomsor concerns or questions.?? Phone number provided.?? Pt verbalized understanding and is in agreement with plan. ? documented in this encounter Plan of Treatment Upcoming Encounters Date Type Department Care Team (Late st Contact Info) Description 05/15/2024 3:30 PM EST Office Visit Radiation Oncology at [address] [phone] Patsy Shelton MD [facility] [place] [address] documented as of this encounter Visit Diagnoses Not on filedocumented in this encounter Care Teams Senior Product Development Scientist Relationship Specialty Start Date End Date Navid Avendaño MD [address] [place] [address] [address] [place], [place] [address] PCP - General Family Medicine 01/24/19 documented as of this encounter
--- OUTSIDE RECORDS SUMMARY | 2024-04-28 01:58 | XMS_ITS | Encounter Summary ---
Author Organization [facility] Address [facility] [place] [place] [address] Care Team Providers Care Java Programming Professor Name Role Phone Navid Avendaño MD Primary Care Provider +1 -[phone] Encounter Details Date Type Department Care Team (Late st Contact Info) Description 03/21/2019 10:30 AM EDT Office Visit Hematology/Oncology at [address] [phone] Edgar Carreon MD [facility] DR HEMATOLOGY [place] [address] Breast cancer, stage 2, left (Primary Dx); [...] ER+/HI+, Her2 IHC neg, LN 2/6, DCIS, [id number] (stage IIA) Subjective:I feel lightheaded HPI:Myesha Livingston [...] file Gets together: Not on file Attends moravian service: Not on file Active member of [...] Tamoxifen alone A ??- Outside slide(s) labeled [id number], collection date 11/11/2018. Breast, left, core needle [...] report, 1+/Negative B ??- Outside slide(s) labeled [id number], collection date 12/07/2018. 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 - Ductal carcinoma in-situ (DCIS), high grade with comedonecrosis. - See Synoptic report. B - Lymph node, [place] #1, left axillary, excision (4 slides labeled B)- - Metastatic carcinoma to one of two lymph nodes. - The anita metastasis measures 1.9 cm. - Extranodal invasion is present. 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 C - Lymph node, left axilla, excision (3 slides labeled C)- - One benign node. D - Lymph node, [place] #2, left axillary, excision (1 slide labeled D)- - One benign node. E - Lymph node, [place] #3, left axillary, excision (2 slides labeled [...] Lymph Nodes Examined: ?6 ? 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
--- OUTSIDE RECORDS SUMMARY | 2024-04-28 01:58 | XMS_ITS | Encounter Summary ---
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.gr3, LVI-, marilynn neg, ER+/TN+, Her2 IHC neg, LN 2/6, DCIS, [id number] (stage IIA) Patient Active Problem List Diagnosis [...] Interval history: Ms. Santizo returns to the [facility] for follow-up of breast cancer. She [...] Tamoxifen alone A ??- Outside slide(s) labeled [id number], collection date 11/11/2018. Breast, left, core needle [...] report, 1+/Negative B ??- Outside slide(s) labeled [id number], collection date 12/07/2018. 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 - Ductal carcinoma in-situ (DCIS), high grade with comedonecrosis. - See Synoptic report. B - Lymph node, [place] #1, left axillary, excision (4 slides labeled B)- - Metastatic carcinoma to one of two lymph nodes. - The anita metastasis measures 1.9 cm. - Extranodal invasion is present. 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 C - Lymph node, left axilla, excision (3 slides labeled C)- - One benign node. D - Lymph node, [place] #2, left axillary, excision (1 slide labeled D)- - One benign node. E - Lymph node, [place] #3, left axillary, excision (2 slides labeled E)- - Two benign nodes. F - Medial Skin edge, excision (2 slides labeled F) - - Benign skin and subcutis. Specimen ?Procedure: ??Total mastectomy ?Specimen Laterality: ?? Left Tumor ?Histologic Type: ?? Invasive carcinoma of no special type (ductal, not ? otherwise specified) ?Histologic Type Comments: ?? with micropapillary features ?Histologic Grade ([place] Histologic Score) ? Glandular (Acinar) / Tubular [...] Lymph Nodes Examined: ?6 ? 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
--- OUTSIDE RECORDS SUMMARY | 2024-04-28 01:58 | XMS_ITS | Encounter Summary ---
Author Organization [facility] Address [facility] [place] [place] [address] Care Team Providers Care Access Analyst Name Role Phone Navid Avendaño MD Primary Care Provider +1 -[phone] Encounter Details Date Type Department Care Team (Late st Contact Info) Description 07/18/2019 9:30 AM EST Office Visit Hematology/Oncology at [address] [phone] Edgar Carreon MD [facility] DR [place] [address] Ethel Christianson RN Breast cancer, stage 2, left (Primary Dx); 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; 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 Breast, left, core needle [...] report, 1+/Negative B ??- Outside slide(s) labeled [id number], collection date 12/07/2018. 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 - Ductal carcinoma in-situ (DCIS), high grade with comedonecrosis. - See Synoptic report. B - Lymph node, [place] #1, left axillary, excision (4 slides labeled B)- - Metastatic carcinoma to one of two lymph nodes. - The anita metastasis measures 1.9 cm. - Extranodal invasion is present. 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 C - Lymph node, left axilla, excision (3 slides labeled C)- - One benign node. D - Lymph node, [place] #2, left axillary, excision (1 slide labeled D)- - One benign node. E - Lymph node, [place] #3, left axillary, excision (2 slides labeled [...] Lymph Nodes Examined: ?6 ? 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
--- OUTSIDE RECORDS SUMMARY | 2024-04-28 01:58 | XMS_ITS | Encounter Summary ---
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
--- OUTSIDE RECORDS SUMMARY | 2024-04-28 01:58 | XMS_ITS | Encounter Summary ---
Author Organization [facility] [place] [address] Care Team Providers Care Payroll Clerk Name Role Phone Navid Avendaño MD Primary Care Provider +1 -[phone] Encounter Details Date Type Department Care Team (Late st Contact Info) Description 06/27/2019 Telephone Radiation Oncology at [address] [phone] Celeste Flynn RN Social History [...] EST Office Visit Radiation Oncology at [address] [phone] Patsy Shelton MD [facility] [place] [address] documented as of this encounter Visit Diagnoses Not on filedocumented in this encounter Care Teams Payroll Clerk Relationship Specialty Start Date End Date Navid Avendaño MD [address] [facility] [address] [place], [place] [address] PCP - General Family Medicine 01/24/19 documented as of this encounter
--- OUTSIDE RECORDS SUMMARY | 2024-04-28 01:58 | XMS_ITS | Encounter Summary ---
Author Organization [facility] Address [facility] [place] [address] Care Team Providers Care Awning Craftsperson Name Role Phone Navid Avendaño MD Primary Care Provider +1 -[phone] Encounter Details Date Type Department Care Team ( Contact Info) Description 03/14/2019 Notes Only Hematology/Oncology at [address] [phone] Edgar Carreon MD [facility] DR HEMATOLOGY [place] [address] Social History Tobacco Use Types Packs/Day Years [...] EST Office Visit Radiation Oncology at [address] [phone] Patsy Shelton MD [facility] [place] [address] documented as of this encounter Visit Diagnoses Not on filedocumented in this encounter Care Teams Awning Craftsperson Relationship Specialty Start Date End Date Navid Avendaño MD [address] [place] [address] PCP - General Family Medicine 01/24/19 documented as of this encounter
--- OUTSIDE RECORDS SUMMARY | 2024-04-28 01:58 | XMS_ITS | Encounter Summary ---
Author Organization [facility] Address [facility] [place] [address] Care Team Providers Care Hip Hop Dance Instructor Name Role Phone Navid Avendaño MD Primary Care Provider +1 -[phone] Reason for Visit * Reason Onset Date Comments Other 01/25/2019 oncotype dx Encounter Details Date Type Department Care Team (Late Contact Info) Description 01/25/2019 Telephone Hematology/Oncology at [address] [phone] Penny Chew RN Other (oncotype [...] online per Dr. Carreon, specimen retrieval from [facility]) and PA requested to be done through onc type dx services. Online confirmation received and results should be back in two weeks. documented in this encounter Plan of Treatment Upcoming Encounters Date Type Department Care Team (Late st Contact Info) Description 05/15/2024 3:30 PM EST Office Visit Radiation Oncology at [address] [phone] Patsy Shelton MD [facility] [place] [address] documented as of this encounter Visit Diagnoses Not on filedocumented in this encounter Care Teams Hip Hop Dance Instructor Relationship Specialty Start Date End Date Navid Avendaño MD [address] [place] [address] PCP - General Family Medicine 01/24/19 documented as of this encounter
--- OUTSIDE RECORDS SUMMARY | 2024-04-28 01:58 | XMS_ITS | Encounter Summary ---
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 [phone] Reason/purpose for phone call: Follow-up on breast [...] with focal micropapillary features.gr3, LVI-, marilynn neg, ER+/KY+, Her2 IHC neg, LN 2/6, DCIS, [id number] (stage IIA) Subjective:I feel lightheaded HPI:Myesha Livingston [...] file Gets together: Not on file Attends yarsanism service: Not on file Active member of [...] Tamoxifen alone A ??- Outside slide(s) labeled [id number], collection date 11/11/2018. 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 On submitted slides (reviewed) - ER immunoreactivity: Positive (>90% cancer cells with immunostaining) Stain intensity: Intermediate and Strong [place] immunoreactivity: Positive (>90% cancer cells with immunostaining) Stain intensity: Strong HER2 IHC - Per report, 1+/Negative B ??- Outside slide(s) labeled [id number], collection date 12/07/2018. 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 - Ductal carcinoma in-situ (DCIS), high grade with comedonecrosis. - See Synoptic report. B - Lymph node, Isabella #1, left axillary, excision (4 slides labeled B)- - Metastatic carcinoma to one of two lymph nodes. - The anita metastasis measures 1.9 cm. - Extranodal invasion is present. 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 C - Lymph node, left axilla, excision (3 slides labeled C)- - One benign node. D - Lymph node, Isabella #2, left axillary, excision (1 slide labeled D)- - One benign node. E - Lymph node, Isabella #3, left axillary, excision (2 slides labeled E)- - Two benign nodes. F - Medial Skin edge, excision (2 slides labeled F) - - Benign skin and subcutis. Specimen ?Procedure: ??Total mastectomy ?Specimen Laterality: ?? Left Tumor ?Histologic Type: ?? Invasive carcinoma of no special type (ductal, not ? otherwise specified) ?Histologic Type Comments: ?? with micropapillary features ?Histologic Grade (Makanda Histologic Score) ? Glandular (Acinar) / Tubular [...] Lymph Nodes Examined: ?6 ? 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
--- OUTSIDE RECORDS SUMMARY | 2024-04-28 01:58 | XMS_ITS | Encounter Summary ---
Author Organization [facility] Address [facility] [address] [place] [address] Care Team Providers Care Laborer Pie Bakery Name Role Phone Navid Avendaño MD Primary Care Provider +1 -[phone] Encounter Details Date Type Department Care Team (Late st Contact Info) Description 05/15/2019 Notes Only Radiation Oncology at [address] [phone] Patsy Shelton MD [facility] [place] [address] Social History Tobacco Use Types Packs/Day Years [...] IDC w/dominant pattern of micropapillary ca, gr3, ER+IL+, Her2 IHC neg, s/p mastectomy & SNB, [...] EST Office Visit Radiation Oncology at [address] [phone] Patsy Shelton MD [facility] [place] [address] documented as of this encounter Visit Diagnoses Not on filedocumented in this encounter Care Teams Laborer Pie Bakery Relationship Specialty Start Date End Date Navid Avendaño MD [address] [place] [address] [address] [facility] [address] [place] [address] PCP - General Family Medicine 01/24/19 documented as of this encounter
--- OUTSIDE RECORDS SUMMARY | 2024-04-28 01:58 | XMS_ITS | Encounter Summary ---
Author Organization [facility] Address [facility] [address] [place] [address] Care Team Providers Care Highway Safety Engineer Name Role Phone Navid Avendaño MD Primary Care Provider +1 -[phone] Encounter Details Date Type Department Care Team (Late st Contact Info) Description 02/07/2019 Telephone Radiation Oncology at [address] [phone] Tram Grimes Social History Tobacco Use Types [...] EST Office Visit Radiation Oncology at [address] [phone] Patsy Shelton MD [facility] [place] [address] documented as of this encounter Visit Diagnoses Not on filedocumented in this encounter Care Teams Highway Safety Engineer Relationship Specialty Start Date End Date Navid Avendaño MD [address] [place] [address] PCP - General Family Medicine 01/24/19 documented as of this encounter
--- OUTSIDE RECORDS SUMMARY | 2024-04-28 01:58 | XMS_ITS | Encounter Summary ---
Author Organization [facility] Address [facility] [place] [address] Care Team Providers Care Kitchen Helper Name Role Phone Navid Avendaño MD Primary Care Provider +1 -[phone] Reason for Visit * Reason Comments Chemotherapy [...] MD [facility] H[place]AT[place] [address] [facility] Hem Onc Office [address] [place] [id number] Referral ID Status Reason Start Date Expiration Date Visits Re quested Visits Authorized [id number] Closed 02/03/2019 02/03/2020 6 6 Encounter Details Date Type Department Care Team (Late st Contact Info) Description 02/21/2019 11:30 AM EDT Infusion Hematology Oncology at [address] [phone] Endometrial adenocarcinoma; Breast cancer, stage [...] clinic hours (8am-5pm Wednesday-Wednesday): pt. can call [phone] with questions or concerns. After clinic hours (5pm-8am Wednesday-Wednesday and weekends) pt can call [phone] and ask for the ebay reseller/oncologist sales solutions representative. Myesha Santizo verbalized understanding of potential chemotherapy [...] EST Office Visit Radiation Oncology at [address] [phone] Patsy Shelton MD [facility] [place] [address] documented as of this encounter Visit Diagnoses [...] 160 mg, Intravenous, ONCE, 1 dose, On e 02/21/19 at 1315, Administer over 60 Minutes, Warning [...] Arm documented in this encounter Care Teams Kitchen Helper Relationship Specialty Start Date End Date Navid Avendaño MD [address] [place] [address] PCP - General Family Medicine 01/24/19 documented as of this encounter
--- OUTSIDE RECORDS SUMMARY | 2024-04-28 01:58 | XMS_ITS | Encounter Summary ---
Author Organization [facility] [place] [address] Care Team Providers Care Cargo And Ramp Services Manager Name Role Phone Navid Avendaño MD Primary Care Provider +1 -[phone] Reason for Visit * Reason Onset Date Comments Medication Problem 05/31/2019 Femara Encounter Details Date Type Department Care Team (Late Contact Info) Description 05/31/2019 Telephone Hematology Oncology at [address] [phone] Delmis Dewey structural test engineer Problem (Femara) Social History Tobacco Use Types [...] EST Office Visit Radiation Oncology at [address] [phone] Patsy Shelton MD [facility] [place] [address] documented as of this encounter Visit Diagnoses Not on filedocumented in this encounter Care Teams Cargo And Ramp Services Manager Relationship Specialty Start Date End Date Navid Avendaño MD [address] [place] [address] PCP - General Family Medicine 01/24/19 documented as of this encounter
--- OUTSIDE RECORDS SUMMARY | 2024-04-28 01:58 | XMS_ITS | Encounter Summary ---
Author Organization [facility] Address [facility] [place] [place] [address] Care Team Providers Care Customer Service Assistant Name Role Phone Navid Avendaño MD Primary Care Provider +1 -[phone] Reason for Visit * Reason Comments On Treatment Visit Encounter Details Date Type Department Care Team (Late st Contact Info) Description 05/09/2019 9:30 AM EST Office Visit Radiation Oncology at [address] [phone] Patsy Shelton MD [facility] [place] [address] Malignant neoplasm of lower-inner quadrant of left [...] w/dominant pattern of micropapillary ca, gr 3, ER+CT+, Her2 IHC neg, s/p mastectomy & SNB, [...] For details, see electronic film record in [email or web address] System. Changes in Medical Condition: Increased sensitivity [...] EST Office Visit Radiation Oncology at [address] [phone] Patsy Shelton MD [facility] [place] [address] documented as of this encounter Visit Diagnoses Diagnosis Malignant neoplasm of lower-inner quadrant of left female breast, unspecified estrogen receptor status documented in this encounter Care Teams Customer Service Assistant Relationship Specialty Start Date End Date Navid Avendaño MD [address] [place] [address] PCP - General Family Medicine 01/24/19 documented as of this encounter
--- OUTSIDE RECORDS SUMMARY | 2024-04-28 01:58 | XMS_ITS | Encounter Summary ---
Author Organization [facility] Address [facility] [place] [address] Care Team Providers Care Managed Care Analyst Name Role Phone Navid Avendaño MD Primary Care Provider +1 -[phone] Reason for Visit * Reason Comments Radiation Consult Encounter Details Date Type Department Care Team (Late st Contact Info) Description 02/05/2020 3:30 PM EDT Office Visit Radiation Oncology at [address] [phone] Patsy Shelton MD [facility] [place] [address] 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 [...] w/dominant pattern of micropapillary ca, gr 3, ER+DC+, Her2 IHC neg, s/p mastectomy & SNB, [...] ROBOTIC performed by Anthony Belle MD at [facility] MAIN OR ? ? PRO LAPAROSCOPY W TOT HYSTERECTUTERUS <=250 GRAM W TUBE/OVARY N/A 03/28/2015 LAPAROSCOPY,TOTAL HYST, UTERUS<250GM, EVER TYBE &/OR OVARY, ROBOTIC ASSIST performed by Anthony Belle MD at [facility] MAIN OR Cataract surg OU. 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
--- OUTSIDE RECORDS SUMMARY | 2024-04-28 01:58 | XMS_ITS | Encounter Summary ---
Author Organization [facility] [place] [address] Care Team Providers Care Business Management Analyst Name Role Phone Navid Avendaño MD Primary Care Provider +1 -[phone] Reason for Visit * Reason Onset Date Comments Other 03/02/2019 Encounter Details Date Type Department Care Team (Late st Contact Info) Description 03/02/2019 Telephone Hematology/Oncology at [address] [phone] Penny Chew RN Other Social [...] her that was fine also. Monika Rossi DEFENSE TRAVEL ADMINISTRATOR updated and if she wants pt to [...] told her I would let Monika Rossi DEFENSE TRAVEL ADMINISTRATOR know all this. documented in this encounter Plan of Treatment Upcoming Encounters Date Type Department Care Team (Late st Contact Info) Description 05/15/2024 3:30 PM EST Office Visit Radiation Oncology at [address] [phone] Patsy Shelton MD [facility] [place] [address] documented as of this encounter Visit Diagnoses Not on filedocumented in this encounter Care Teams Business Management Analyst Relationship Specialty Start Date End Date Navid Avendaño MD [address] [place] [address] PCP - General Family Medicine 01/24/19 documented as of this encounter
--- OUTSIDE RECORDS SUMMARY | 2024-04-28 01:58 | XMS_ITS | Encounter Summary ---
Author Organization [facility] Address [facility] [place] [place] [address] Care Team Providers Care Data Processing Operator Name Role Phone Navid Avendaño MD Primary Care Provider +1 -[phone] Reason for Visit * Reason Comments Radiation Follow-up Encounter Details Date Type Department Care Team (Late st Contact Info) Description 06/26/2019 4:00 PM EST Office Visit Radiation Oncology at [address] [phone] Patsy Shelton MD [facility] [place] [address] 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 [...] take requisition for blood work to [facility] to check kidney function. If you do not hear from meby tomorrow @ noon, please call [phone] to ask if ok to resume metformin. [...] ROBOTIC performed by Anthony Belle MD at [facility] MAIN OR ? ? PRO LAPAROSCOPY W TOT HYSTERECTUTERUS <=250 GRAM W TUBE/OVARY N/A 03/28/2015 LAPAROSCOPY,TOTAL HYST, UTERUS<250GM, EVER TYBE &/OR OVARY, ROBOTIC ASSIST performed by Anthony Belle MD at [facility] MAIN OR Cataract surg OU. 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
--- OUTSIDE RECORDS SUMMARY | 2024-04-28 01:58 | XMS_ITS | Encounter Summary ---
Author Organization [facility] [place] [address] Care Team Providers Care Clinical Research Tech Name Role Phone Navid Avendaño MD Primary Care Provider +1 -[phone] Encounter Details Date Type Department Care Team (Late st Contact Info) Description 03/14/2019 10:30 AM EDT Office Visit Hematology/Oncology at [address] [phone] Ivana Rossi APRN [address] [place] [address] Breast cancer, stage 2, left Social [...] this encounter Progress Notes * Ivana Rossi, BAND AID MACHINE OPERATOR - 03/14/2019 10:30 AM EDT Subjective: Patient ID: Myesha Santizo is a 73 y.o. female. 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 Patientwas transferred [facility] ambulance. Her daughter who had left, was called and informed. Patient will return for OV with MD, then be referred for radiation therapy. Ivana Rossi, MSN, BAND AID MACHINE OPERATOR, AOCNP documented in this encounter Plan of Treatment Upcoming Encounters Date Type Department Care Team (Late st Contact Info) Description 05/15/2024 3:30 PM EST Office Visit Radiation Oncology at [address] [phone] Patsy Shelton MD [facility] [place] [address] documented as of this encounter Visit Diagnoses Diagnosis Breast cancer, stage 2, left documented in this encounter Care Teams Clinical Research Tech Relationship Specialty Start Date End Date Navid Avendaño MD [address] [facility] [address] [facility] [place] [address] PCP - General Family Medicine 01/24/19 documented as of this encounter
--- OUTSIDE RECORDS SUMMARY | 2024-04-28 01:58 | XMS_ITS | Encounter Summary ---
Author Organization [facility] Address [facility] [address] [place] [address] Care Team Providers Care Nursery Worker Name Role Phone Navid Avendaño MD Primary Care Provider +1 -[phone] Encounter Details Date Type Department Care Team (Late Contact Info) Description 02/23/2019 Orders Only Hematology/Oncology at [address] [phone] Ivana Rossi APRN [address] [place] [address] Endometrial adenocarcinoma Social History Tobacco Use [...] EST Office Visit Radiation Oncology at [address] [phone] Patsy Shelton MD [facility] [place] [address] documented as of this encounter Visit Diagnoses Diagnosis 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
--- OUTSIDE RECORDS SUMMARY | 2024-04-28 01:58 | XMS_ITS | Encounter Summary ---
Author Organization [facility] [place] [address] Care Team Providers Care Shake Cutter Name Role Phone Navid Avendaño MD Primary Care Provider +1 -[phone] Encounter Details Date Type Department Care Team (Late st Contact Info) Description 04/12/2019 Telephone Radiation Oncology at [address] [phone] Celeste Flynn RN Social History [...] AM EDT Background: Received trillian message from community youth secretary Pato that patient not making it [...] PM EST Office Visit Radiation Oncology at [address] [phone] Patsy Shelton MD [facility] [place] [address] documented as of this encounter Visit Diagnoses Not on filedocumented in this encounter Care Teams Shake Cutter Relationship Specialty Start Date End Date Navid Avendaño MD [address] [place] [address] PCP - General Family Medicine 01/24/19 documented as of this encounter
--- OUTSIDE RECORDS SUMMARY | 2024-04-28 01:58 | XMS_ITS | Encounter Summary ---
Author Organization [facility] [place] [address] Care Team Providers Care Speech Professor Name Role Phone Navid Avendaño MD Primary Care Provider +1 -[phone] Encounter Details Date Type Department Care Team (Late st Contact Info) Description 03/21/2019 Notes Only Radiation Oncology at [address] [phone] Stephanie Stinson MSW OFFICE OF CARE MANAGEMENT [...] an issues as daughter works. Informed pt CLERK OF WORKS could talk to [facility] as see if she is eligible to use [facility] funds for help with rides. Reminded pt of CLERK OF WORKS available. Asked that she and/or daughter let CLERK OF WORKS know what her plans are and ifshe needs to explore use of community resources such as RCT. Offered support. Will follow for support and resources. documented in this encounter Plan of Treatment Upcoming Encounters Date Type Department Care Team (Late st Contact Info) Description 05/15/2024 3:30 PM EST Office Visit Radiation Oncology at [address] [phone] Patsy Shelton MD [facility] [place] [address] documented as of this encounter Visit Diagnoses Not on filedocumented in this encounter Care Teams Speech Professor Relationship Specialty Start Date End Date Navid Avendaño MD [address] [place] [address] PCP - General Family Medicine 01/24/19 documented as of this encounter
--- OUTSIDE RECORDS SUMMARY | 2024-04-28 01:58 | XMS_ITS | Encounter Summary ---
Author Organization [facility] [place] [place] [address] Care Team Providers Care Brick Burner Head Name Role Phone Navid Avendaño MD Primary Care Provider +1 -[phone] Encounter Details Date Type Department Care Team (Late Contact Info) Description 03/15/2019 Orders Only [place] [address] Edgar Carreon MD [facility] [address] [place] [address] Social History Tobacco Use Types Packs/Day Years [...] EST Office Visit Radiation Oncology at [address] [phone] Patsy Shelton MD [facility] [place] [address] documented as of this encounter Visit Diagnoses Not on filedocumented in this encounter Care Teams Brick Burner Head Relationship Specialty Start Date End Date Navid Avendaño MD [address] [place] [address] PCP - General Family Medicine 01/24/19 documented as of this encounter
--- OUTSIDE RECORDS SUMMARY | 2024-04-28 01:58 | XMS_ITS | Encounter Summary ---
Author Organization [facility] Address [facility] [place] [place] [address] Care Team Providers Care Pelletizer Operator Name Role Phone Navid Avendaño MD Primary Care Provider [phone] Reason for Referral * Consultation (Routine) - Closed Specialty Diagnoses / Procedures Referred By Moses damian Referred To Contact Radiation Oncology Diagnoses Breast cancer, stage 2, left Edgar Carreon MD [facility] [address] [place] [address] Stj Rad Onc Treatment [address] [place] [phone] Referral ID Status Reason Start Date Expiration Date V isits Requested Visits Authorized [id number] Closed Consult, Test & Treat 02/03/2019 02/03/2020 1 1 Reason for Visit * Consultation (Routine) - Closed Specialty Diagnoses / Procedures Referred By Moses damian Referred To Contact Hematology and Oncology Diagnoses Breast cancer BREAST CANCER Procedures TREATMENT OPTIONS Kelli Bedolla MD [address] [place] [address] St Hem Onc Office [address] [place] [phone] Referral ID Status Reason Start Date Expiration Date Visits Re quested Visits Authorized [id number] Closed 12/19/2018 12/19/2019 1 1 Encounter Details Date Type Department Care Team (Late st Contact Info) Description 01/24/2019 4:00 PM EDT Office Visit Hematology/Oncology at [address] [address] Edgar Carreon MD [facility] [address] [place] [address] Endometrial adenocarcinoma; Breast cancer, stage 2, left; [...] ER+/WI+, Her2 IHC neg, LN 2/6, DCIS, [id number] (stage IIA) Subjective:I feel fine HPI:Myesha Livingston [...] file Gets together: Not on file Attends mormonism service: Not on file Active member of [...] kg/m?? Pathology: A ??- Outside slide(s) labeled [id number], collection date 11/11/2018. Breast, left, core needle [...] report, 1+/Negative B ??- Outside slide(s) labeled [id number], collection date 12/07/2018. 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 - Ductal carcinoma in-situ (DCIS), high grade with comedonecrosis. - See Synoptic report. B - Lymph node, [place] #1, left axillary, excision (4 slides labeled B)- - Metastatic carcinoma to one of two lymph nodes. - The anita metastasis measures 1.9 cm. - Extranodal invasion is present. 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 C - Lymph node, left axilla, excision (3 slides labeled C)- - One benign node. D - Lymph node, [place] #2, left axillary, excision (1 slide labeled D)- - One benign node. E - Lymph node, [place] #3, left axillary, excision (2 slides labeled E)- - Two benign nodes. F - Medial Skin edge, excision (2 slides labeled F) - - Benign skin and subcutis. Specimen ?Procedure: ??Total mastectomy ?Specimen Laterality: ?? Left Tumor ?Histologic Type: ?? Invasive carcinoma of no special type (ductal, not ? otherwise specified) ?Histologic Type Comments: ?? with micropapillary features ?Histologic Grade ([place] Histologic Score) ? Glandular (Acinar) / Tubular [...] Lymph Nodes Examined: ?6 ? Number of [place] Nodes Examined: ?5 Pathologic Stage Classification (pTNM, [...] cm IDC with focal micropapillary features.gr3, LVI-, mairlynn neg, ER+/WI+, Her2 IHC neg, LN 2/6, DCIS, [id number] (stage IIA) Treatment: -12/07/2018 left mastectomy and [...] EST Office Visit Radiation Oncology at [address] [phone] Patsy Shelton MD [facility] [place] [address] Scheduled Referrals Name Type Priority Associated Diagnoses [...] breast documented in this encounter Care Teams Pelletizer Operator Relationship Specialty Start Date End Date Navid Avendaño MD [address] [place] [address] PCP - General Family Medicine 01/24/19 documented as of this encounter
--- OUTSIDE RECORDS SUMMARY | 2024-04-28 01:58 | XMS_ITS | Encounter Summary ---
Author Organization [facility] Address [facility] [place] [address] Care Team Providers Care Frame Catcher Name Role Phone Maya Burden MD Primary Care Provider [phone] Encounter Details Date Type Department Care Team (Late st Contact Info) Description 12/21/2018 External [place] [phone] Provider, Scanning Social History Tobacco Use Types [...] EST Office Visit Radiation Oncology at [address] [phone] Patsy Shelton MD [facility] [place] [address] documented as of this encounter Procedures Procedure Name Priority Date/Time Associated Diagnosis Comments SURGICAL PATHOLOGY SCAN Routine 12/21/2018 documented in this encounter Results * Scan Doc: Surgical Pathology (12/21/2018) Edgar Carreon MD MEDIA MGR SCAN EXT O RDR/RSLT documented in this encounter Visit Diagnoses Not on filedocumented in this encounter Care Teams Frame Catcher Relationship Specialty Start Date End Date Maya Burden MD [address] [place] [address] PCP - General 05/27/10 01/23/19 documented as of this encounter
--- OUTSIDE RECORDS SUMMARY | 2024-04-28 01:58 | XMS_ITS | Encounter Summary ---
Author Organization [facility] Address [facility] [address] [place] [address] Care Team Providers Care Counselor Education Professor Name Role Phone Navid Avendaño MD Primary Care Provider [phone] Encounter Details Date Type Department Care Team (Latest Contact Info) Description 05/17/2020 12:31 PM EST - 05/17/2020 11:59 PM EST Hospital Encounter Laboratory [facility] [place] [address] Discharge Disposition: Home Social History Tobacco Use [...] calcium -250 mg Tablet Take by mouth. lisinopril (PRINIVIL;ZESTRIL) 10 mg Tablet Daily 05/02/2013 metFORMIN (GLUCOPHAGE) 500 mg Tablet Twice a day 05/03/2014 omeprazole (PRILOSEC) 20 mg capsule Take by mouth 2 times daily. 04/08/2006 multivitamin (DAILY MULTIPLE) tablet 04/08/2006 senna-docusate (PERICOLACE) 8.6-50 mg Tablet Take 1 tablet by mouth daily. 60 tablet 0 03/29/2015 acetaminophen (TYLENOL) 500 mg Tablet As needed 12/24/2012 letrozole (FEMARA) 2.5 mg TabletIndications:Hormo ne receptor [...] EST Office Visit Radiation Oncology at [address] [phone] Patsy Shelton MD [facility] [place] [address] documented as of this encounter Procedures Procedure Name Priority Date/Time Associated Diagnosis Comments COVID-19 PCR Routine 05/17/2020 12:00 PM EST documented in this encounter Results * COVID-19 PCR (05/17/2020 12:00 PM EST) SARS-CoV-2 RNA Not Detected Not Detected [facility] Comment: This result should be interpreted [...] diagnosis of COVID-19 is performed using the [employer] m SARS-CoV-2 Assay as authorized by the FDA Emergency Use Authorization (EUA). This EUA assay is intended for In-vitro Diagnostic (IVD) use with respiratory specimens such as nasopharyngeal swabs collected from individuals during the acute phase of infection. This assay is performed based on the instructions for use provided by [employer] and additional guidance provided by CDC and FDA. Testing is performed in the [facility] Laboratory within the Department of Pathology and Laboratory Medicine at [facility], certified under the Clinical Laboratory Improvement [...] fact sheets at the following FDA website: https://www.fda.gov/medical-devices/wluyeoeuexf-qaaeidi-6735-rgjts-22-fppookdwk- use-a pyveidoosqwiy-jpvrabe-mddiwfw/tqmyl-evvrbowydqg-dfla SARS-CoV-2 RNA Source [employer] Swab [facility] Nasopharyngeal swab (specimen) Other / Unknown 05/17/2020 12:00 PM EST 05/18/2020 12:01 AM EST Narrative Resulting Agency Comment Spec In Lab Kelli Renee MD [facility] [place] [address] documented in this encounter Visit Diagnoses Not on filedocumented in this encounter Care Teams Counselor Education Professor Relationship Specialty Start Date End Date Navid Avendaño MD [address] [place] [address] PCP - General Family Medicine 01/24/19 documented as of this encounter
--- OUTSIDE RECORDS SUMMARY | 2024-04-28 01:58 | XMS_ITS | Encounter Summary ---
Author Organization [facility] [place] [address] Care Team Providers Care Director Food Safety Name Role Phone Navid Avendaño MD Primary Care Provider [phone] Reason for Visit * Reason Onset Date Comments Results 07/04/2019 Encounter Details Date Type Department Care Team (Late Contact Info) Description 07/04/2019 Telephone Hematology/Oncology at [address] [phone] Patel Berumen, BRANDON Results Social [...] EST Office Visit Radiation Oncology at [address] [phone] Patsy Shelton MD [facility] DR RADIATION [place] [address] documented as of this encounter Visit Diagnoses Not on filedocumented in this encounter Care Teams Director Food Safety Relationship Specialty Start Date End Date Navid Avendaño MD [address] [place] [address] [address] [place] [address] PCP - General Family Medicine 01/24/19 documented as of this encounter
--- OUTSIDE RECORDS SUMMARY | 2024-04-28 01:58 | XMS_ITS | Encounter Summary ---
Author Organization [facility] Address [facility] [place] [place] [address] Care Team Providers Care Sterile Supervisor Name Role Phone Navid Avendaño MD Primary Care Provider [phone] Reason for Visit * Consultation (Routine) - [...] CONSULT CONTINUING PRG RADIATION MANAGEMENT, 5 TREATMENTS [address] Patsy Shelton MD [facility] [place] [address] [facility] Rad Onc Office [address] [place] [phone] Referral ID Status Reason Start Date Expiration Date V isits Requested Visits Authorized [id number] Closed Consult, Test & Treat 03/20/2019 03/19/2020 1 1 Encounter Details Date Type Department Care Team (Latest Contact Info) Description 03/21/2019 11:30 AM EDT Ancillary Appointment Radiation Oncology at [address] [phone] Patsy Shelton MD [facility] [place] [address] Malignant neoplasm of lower-inner quadrant of left [...] your treatment to your nurse or doctor. [facility] Our normal business hours are: Wednesday - Wednesday 8 AM to 5 PM [place], [place], [place] For emergent situations after hours please call for either location and ask for the Radiation Oncologist precision lens generator. documented in this encounter Progress Notes * [...] pre- medication plan made: None needed. Referrals: EQUIPMENT OPERATOR/LABORER/SUPERVISOR per routine * Patsy Shelton MD - [...] EST Office Visit Radiation Oncology at [address] [phone] Patsy Shelton MD [facility] DR [place] [address] documented as of this encounter Visit Diagnoses Diagnosis Malignant neoplasm of lower-inner quadrant of left female breast, unspecified estrogen receptor status documented in this encounter Care Teams Sterile Supervisor Relationship Specialty Start Date End Date Navid Avendaño MD [address] [place] [address] PCP - General Family Medicine 01/24/19 documented as of this encounter
--- OUTSIDE RECORDS SUMMARY | 2024-04-28 01:58 | XMS_ITS | Encounter Summary ---
Author Organization [facility] Address [facility] [place] [place] [address] Care Team Providers Care Software Development Intern Name Role Phone Navid Avendaño MD Primary Care Provider [phone] [phone] Reason for Visit * Reason Comments On Treatment Visit Encounter Details Date Type Department Care Team (Late st Contact Info) Description 04/11/2019 9:30 AM EDT Office Visit Radiation Oncology at [address] [phone] Patsy Shelton MD [facility] [place] [address] Malignant neoplasm of lower-inner quadrant of left [...] w/dominant pattern of micropapillary ca, gr 3, ER+TN+, Her2 IHC neg, s/p mastectomy & SNB, [...] For details, see electronic film record in XGraph System. Changes in Medical Condition: R elbow [...] EST Office Visit Radiation Oncology at [address] [address] Patsy Shelton MD [facility] [place] [address] documented as of this encounter Visit Diagnoses Diagnosis Malignant neoplasm of lower-inner quadrant of left female breast, unspecified estrogen receptor status documented in this encounter Care Teams Software Development Intern Relationship Specialty Start Date End Date Navid Avendaño MD [address] [place] [address] PCP - General Family Medicine 01/24/19 documented as of this encounter
--- OUTSIDE RECORDS SUMMARY | 2024-04-28 01:58 | XMS_ITS | Encounter Summary ---
Author Organization [facility] Address [facility] [place] [address] Care Team Providers Care Moss Bleacher Name Role Phone Navid Avendaño MD Primary Care Provider [phone] [phone] Reason for Visit * Reason Comments On Treatment Visit Encounter Details Date Type Department Care Team (Late st Contact Info) Description 04/04/2019 9:30 AM EDT Office Visit Radiation Oncology at [address] [phone] Patsy Shelton MD [facility] [place] [address] Malignant neoplasm of lower-inner quadrant of left [...] For details, see electronic film record in PlasmaSi System. Changes in Medical Condition: None. Pain?: [...] EST Office Visit Radiation Oncology at [address] [phone] Patsy Shelton MD [facility] RADIATION ONCOLOGY [place] [id number] documented as of this encounter Visit Diagnoses Diagnosis Malignant neoplasm of lower-inner quadrant of left female breast, unspecified estrogen receptor status documented in this encounter Care Teams Moss Bleacher Relationship Specialty Start Date End Date Navid Avendaño MD [address] [place] [address] PCP - General Family Medicine 01/24/19 documented as of this encounter
--- OUTSIDE RECORDS SUMMARY | 2024-04-28 01:58 | XMS_ITS | Encounter Summary ---
Author Organization [facility] Address [facility] [place] [place] [address] Care Team Providers Care Special Delivery Worker Name Role Phone Navid Avendaño MD Primary Care Provider [phone] Reason for Referral * Physical Therapy (Routine) - Specialty Diagnoses / Procedures Referred By Moses damian Referred To Contact Physical Therapy Diagnoses Malignant neoplasm of lower-inner quadrant of left female breast, unspecified estrogen receptor status Patsy Shelton MD [facility] [place] [address] Referral ID Status Reason Start Date Expiration Date V isits Requested Visits Authorized [id number] Evaluate and Treat Non DH PCP 03/21/2019 [...] CONSULT CONTINUING PRG RADIATION MANAGEMENT, 5 TREATMENTS [address] Patsy Shelton MD [facility] [place] [address] [facility] Rad Onc Office [address] [place] [phone] Referral ID Status Reason Start Date Expiration Date V isits Requested Visits Authorized [id number] Closed Consult, Test & Treat 03/20/2019 03/19/2020 1 1 Reason for Visit * Reason Comments Radiation Consult * Consultation (Routine) - Closed Specialty Diagnoses / Procedures Referred By Contac t Referred To Contact Radiation Oncology Diagnoses Breast cancer, stage 2, left Edgar Carreon MD [facility] DR HEMATOLOGY [place] [address] [facility] Rad Onc Treatment [address] [place] [phone] Referral ID Status Reason Start Date Expiration Date V isits Requested Visits Authorized [id number] Closed Consult, Test & Treat 02/03/2019 02/03/2020 1 1 Encounter Details Date Type Department Care Team (Late st Contact Info) Description 03/20/2019 10:00 AM EDT Office Visit Radiation Oncology at [address] [phone] Patsy Shelton MD [facility] [place] [address] Malignant neoplasm of lower-inner quadrant of left [...] friends. Barriers to treatment: none . Referrals/Interventions: RUMPER per routine RADIATION SPECIFIC TEACHING: [facility] Radiation Therapy and You Site specific teaching : To be done by nursing on day of simulation. Other: PLAN: Per Dr. Shelton * Patsy Shetlon MD - 03/20/2019 10:00 AM EDT Images [...] core bx L breast. Path: IDC, DCIS, ER+ND+, Her2 IHC neg. 11/22/[address] [...] Belle MD at [facility] ? ? PRO LAPAROSCOPY W TOT HYSTERECTUTERUS <=250 GRAM W TUBE/OVARY N/A 03/28/2015 LAPAROSCOPY,TOTAL HYST, UTERUS<250GM, EVER TYBE &/OR OVARY, ROBOTIC ASSIST performed by Anthony Belle MD at [facility] Cataract surg OU Your Medications [...] extremity turns pink or starts to swell. 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 25 mins [...] EST Office Visit Radiation Oncology at [address] [address] Patsy Shelton MD [facility] [place] [address] Scheduled Orders Name Type Priority Associated Diagnoses [...] status documented in this encounter Care Teams Special Delivery Worker Relationship Specialty Start Date End Date Navid Avendaño MD [address] [place] [address] PCP - General Family Medicine 01/24/19 documented as of this encounter
--- OUTSIDE RECORDS SUMMARY | 2024-04-28 01:59 | XMS_ITS | Encounter Summary ---
Author Organization [facility] Address [facility] [place] [place] [address] Care Team Providers Care Aerophysicist Name Role Phone Maya Burden MD Primary Care Provider [phone] Encounter Details Date Type Department Care Team (Late st Contact Info) Description 03/28/2015 3:12 PM EDT Anesthesia [place] [address] Ibrahima Burris MD [facility] [place] [address] Gale Armendariz MD [facility] [place] [address] Anesthesia Record Procedure Summary Procedure Name Responsible [...] 1515; metacarpal vein left (top of hand); xpyk-bdg-avxlii catheter system; 18 gauge; [place]; 03/29/15; 1200 [...] discussed with patient. Plan [facility] Assessment: documented in this encounter Plan of Treatment Upcoming Encounters Date Type Department Care Team (Late st Contact Info) Description 05/15/2024 3:30 PM EST Office Visit Radiation Oncology at [address] [phone] Patsy Shelton MD [facility] [address] [place] [address] documented as of this encounter Visit Diagnoses [...] mg documented in this encounter Care Teams Aerophysicist Relationship Specialty Start Date End Date Maya Burden MD [address] [place] [address] PCP - General 05/27/10 01/23/19 documented as of this encounter
--- OUTSIDE RECORDS SUMMARY | 2024-04-28 01:59 | XMS_ITS | Encounter Summary ---
Author Organization [facility] Address [facility] [address] [place] [address] Care Team Providers Care Loan Documents Closer Name Role Phone Maya Gambino MD Primary Care Provider [phone] Encounter Details Date Type Department Care Team (Late st Contact Info) Description 03/28/2015 2:59 PM EDT - 03/28/2015 6:27 PM EDT Surgery [place] [phone] Anthony Johns MD [facility] [place] [address] ROBOTIC LAPAROSCOPY,TOTAL HYST, UTERUS<250GM, REM TUBE &/OR [...] Myesha Santizo Patient Age: 69 y.o. Language: Botswanan Race: White Ethnicity: Not nor Admit date: 03/28/2015 Discharge date and time: 03/29/2015 Attending Physician: Anthony Johns MD Discharge Physician: Anthony Johns MD Follow-up Recommendations for Providers: Follow up appointment with Dr. Johns 04/23/15 at 11:00 AM Inpatient Provider Contact Information: Dr. Johns, [facility] Gynecologic Oncology, Discharge Diagnoses (Hospital Problems) [...] at 11:00 AM Gynecology Oncology phone number: [phone] Call your doctor if you develop: --A [...] 11:00 AM Anthony Johns MD Gynecologic Oncology [phone] Discharge References/Attachments None Provider Contact Information: MAYA GAMBINO MD (General) [phone] documented in this encounter Discharge Instructions * Patient Instructions* Aliyah Izaguirre PA - 03/28/2015 4:25 PM EDT Images from the original note were not included. PATIENT DISCHARGE INSTRUCTIONS Follow up appointment with Dr. Johns: 04/23/15 at 11:00 AM Gynecology Oncology phone number: [phone] Call your doctor if you develop: --A [...] 0.5 % Cream Apply topically daily. 04/23/2015 aspirin 81 mg Tablet, Delayed Release (E.C.) [...] MD - 03/28/2015 3:00 PM EDT Inpatient [employer] - Admission Interval Note I have reviewed [...] Appropriate) Goal: Fall Prevention-Safe Patient Handling 03/28/15224903/29/15 0320 03/29/15339 Musculoskeletal Interventions Activity/Level of Assistance -- -- [...] Assessment Outcome: Ongoing (Interventions Implemented as Appropriate) 03/29/15 034 Discharge Needs Assessment Concerns to be Addressed no discharge needs identified Readmission Within the Last 30 Days no previous admission in last 30 days Equipment Needed After Discharge none Current Health Anticipated Changes Related to Illness none Self-Care Equipment Currently Used at Home none Living Environment Transportation Available none * Op Note - Anthony Johns MD - 03/28/2015 5:48 PM EDT [facility] Operative Note Patient Name: Myesha Santizo : [id number] MR#: [id number] Case Date: 03/28/2015 Surgeon: Surgeon(s) and Role: [...] who was referred by Goldie Moore MD [address] [place] [address] for a new diagnosis of grade 1 [...] trocars and a 12-mm right upper quadrant assistant toddler teacher port were placed in the usual locations [...] EST Office Visit Radiation Oncology at [address] [phone] Patsy Shelton MD [facility] [place] [address] documented as of this encounter Procedures Procedure Name Priority Date/Time Associated Diagnosis Comments FIXED INCOME PORTFOLIO MANAGER SCAN 03/30/2015 12:00 AM EDT POCT GLUCOSE [...] in this encounter Results * SCAN DOC: FIXED INCOME PORTFOLIO MANAGER (03/30/2015 12:00 AM EDT) Anatomical Region Laterality Modality Other Scanning Provider MEDIA MGR SCAN EXT O RDR/RSLT * POCT Glucose (03/29/2015 7:46 AM EDT) Glucose, POC 125 65 - 199 mg/dL [facility] Comment: Supplemental ranges: <140 mg/dL before meals [...] Lab Anthony Johns MD HEMATOLOGY ORDERABLE S CERNER MILLENNIUM * (ABNORMAL) Hemogram (03/29/2015 4:59 AM [...] Lab Anthony Johns MD HEMATOLOGY ORDERABLE S CERNER MILLENNIUM * (ABNORMAL) Basic Metabolic Panel (non-fasting) (03/29/2015 4:59 AM EDT) [facility] Glucose 165 65 - 199 mg/dL CERNER MILLENNIUM Comment:Diabetes: >=200 mg/d L plus symptoms Blood Urea Nitrogen 13 8 - 18 mg/dL CERNER MILLENNIUM Creatinine 1.03 0.70 - 1.20 mg/dL CERNER MILLENNIUM Comment: Please note that the pediatric reference intervals supplied above were not validated at [facility]. Results from pediatric patients should be interpreted [...] the following links into your internet browser. [email or web address] Blood specimen (specimen) 03/29/2015 4:59 AM EDT 03/29/2015 5:46 AM EDT Narrative Resulting Agency Comment Spec In Lab Anthony Johns MD CHEMISTRY ORDERABLES Performing Organization Address [facility] de Phone Number [facility] * POCT Glucose (03/28/2015 8:38 PM EDT) Glucose, POC 177 65 - 199 mg/dL [facility] Comment: Supplemental ranges: <140 mg/dL before meals <180 mg/dL all other times of the day Blood specimen (specimen) 03/28/2015 8:38 PM EDT 03/28/2015 8:38 PM EDT Anthony Johns MD POINT OF CARE TEST O RDERABLES Performing Organization Address [facility] Co de Phone Number [facility] * Surgical Pathology Report (03/28/2015 4:55 PM EDT) Final Diagnosis The signing pathologist has (i) examined the relevant preparation(s) for the specimen(s) and (ii) rendered or confirmed the diagnosis(es). Accession Number: [id number] ?Location: BP; BP10; B . ? 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 04/03/15 [facility] 04/03/15 Verified by: ? Shane Galvez [...] CR-0 04/02/15 [facility] 04/02/15 Verified by: ? Shane Galvez MD ?Pathologist ?(Electronic Signature) The attending pathologist whose signature appears on this report has reviewed all diagnostic slides and has edited the gross and/or microscopic portion of the report in rendering the final pathologic diagnosis. DISCUSSION Immunohistochemical HNPCC studies are pending and a supplemental report will follow. Scanned slides: [id number] CLINICAL INFORMATION Specimen Submitted: A - [...] Myometrium: Trabecular; 1.5 cm in thickness. Serosa: [place], smooth and glistening. Cervix: 2.5 cm in [...] surfaced by fibrous adhesions. SECTIONS/PROCESSING: A sales representatives section of the tumor is submitted for frozen section as FS 1. ??A sales representatives section of the TRAV is submitted for [...] studies, if any. 04/03/2015 9:11 AM EDT [facility] Uterine Corpus 03/28/2015 4: 55 PM EDT 03/28/2015 4:55 PM EDT Anthony Johns MD PATHOLOGY/CYTOLOGY O RDFELI LAURE THOMPSON [facility] [place] [address] * Specimen to Pathology (surgical or derm) (03/28/2015 4:53 PM EDT) AP Specimen 03/28/2015 4:53 PM EDT 03/28/2015 4:53 PM EDT Narrative LAURE MAISHAMERARIBETI - 03/28/2015 4:53 PM EDT Specimen requisition ordered. ??Separate Pathology report to follow Anthony Johns MD PATHOLOGY/CYTOLOGY O JORGE Performing Organization Address [facility] Co de Phone Number LA[facility] THOMPS[facility] * POCT Glucose (03/28/2015 2:03 PM EDT) Glucose, POC 119 65 - 199 mg/dL [facility] Comment: Supplemental ranges: <140 mg/dL before meals <180 mg/dL all other times of the day Blood specimen (specimen) 03/28/2015 2:03 PM EDT 03/28/2015 2:03 PM EDT Anthony Johns MD POINT OF CARE TEST O JORGE Performing Organization Address [facility] Co de Phone Number LAURE THOMPSON documented in this encounter Visit Diagnoses Not on filedocumented in this encounter Administered Medications Inactive Administered Medications - up to 3 most recent administrations Medication Order MAR Action Action Date Dose Rate Site BUpivacaine-EPINEPHrine 0.25 %-1:200,000 injection ONCE PRN, Starting on Wed03/28/15 at 1610, Until Wed03/28/15 at 2034, Intra-Operative (Intra-Procedure), Routine Given 03/28/2015 4:10 PM [...] 2033, Day of Surgery (Day of Procedure) New Bag 03/28/2015 5:00 PM EDT New Bag 03/28/2015 2:30 PM EDT 1,000 mLs 100 mL/hr lactated ringers infusion 1,000 mL 1,000 mL, at 100 mL/hr, Intravenous, CONTINUOUS, Starting on Celina 03/28/15 at 1815, Until Celina 03/28/15 at 2033, PACU Recovery Continued Bag 03/28/2015 8:33 PM [...] Procedure), Indication for (Active or Suspected): Prophylaxis 0148 (Given - Provider: Parviz Mccall) docusate sodium (COLACE) oral liquid 100 mg (CANCELED)(Linked Group 1) 100 mg, Oral, 2 TIMES DAILY, First dose on Wed03/28/15 at 2330, Until Discontinued, Routine 2330 (Not Given - Provider: Emma Veras RN [...] 2330, Until Discontinued, Recovery (Recovery-Hospital Unit), Routine 2330 (Due) 0823 (Given - Provider: Nadia Chandler RN) Continuous Medication Order 03/27/2015 03/28/2015 03/29/2015 lactated ringers infusion 1,000 mL (CANCELED) 1,000 mL, at 100 mL/hr, Intravenous, CONTINUOUS, Starting on Wed03/28/15 at 1430, Until Wed03/28/15 at 2034, Day of Surgery (Day of Procedure) 1430 [...] PACU Recovery 1858 (Given - Provider: Sophie Rosario RN)1913 (Given - Provider: Sophie Rosario RN)1943 (Given - Provider: Sophie Rosario RN) ibuprofen (ADVIL;MOTRIN) tablet 600 mg(Linked Group 2) 600 mg, Oral, EVERY 6 HOURS PRN, Starting on Wed03/29/15 at 0600, Until Wed03/29/15 at 1612, Pain, - Begin after ketorolac discontinued., Routine 0608 (Given - Provid er: Emma eVras RN)1200 (Given - Provider: Nadia Chandler RN) [...] Routine documented in this encounter Care Teams Loan Documents Closer Relationship Specialty Start Date End Date Maya Gambino MD [address] [place], [place] [address] PCP - General 05/27/10 01/23/19 documented as of this encounter
--- OUTSIDE RECORDS SUMMARY | 2024-04-28 01:59 | XMS_ITS | Encounter Summary ---
Author Organization [facility] Address [facility] [address] [place] [address] Care Team Providers Care Label Cutter Name Role Phone Maya Burden MD Primary Care Provider [phone] Encounter Details Date Type Department Care Team (Late Contact Info) Description 03/01/2015 11:00 AM EDT Clinical [place] [address] Social History Tobacco Use Types Packs/Day Years [...] EST Office Visit Radiation Oncology at [address] [phone] Patsy Shelton MD [facility] [place] [address] documented as of this encounter Visit Diagnoses Not on filedocumented in this encounter Care Teams Label Cutter Relationship Specialty Start Date End Date Maya Burden MD [address] [place] [address] PCP - General 05/27/10 01/23/19 documented as of this encounter
--- OUTSIDE RECORDS SUMMARY | 2024-04-28 01:59 | XMS_ITS | Encounter Summary ---
Author Organization [facility] [place] [place] [address] Care Team Providers Care Brilliandeer Looper Name Role Phone Maya Burden MD Primary Care Provider [phone] Reason for Visit * Reason Comments Post Hospital Discharge Encounter Details Date Type Department Care Team (Latest Contact Info) Description 04/23/2015 11:00 AM EDT Office Visit [place] [address] Anthony Belle MD 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 Hebert for her surveillance or that she is welcome to return to this clinic for surveillance. As always, we are available for any further questions or concerns. Patient seen/examined and plan formulated with Dr. Belle, foreign exchange services manager oncologist NOELLE VALDEZ MD PGY2 04/23/2015 I saw and evaluated the patient with Dr. Valdez, and I confirmed the history and physical findings as outlined, and I agree with the note as written. documented in this encounter Plan of Treatment Upcoming Encounters Date Type Department Care Team (Late st Contact Info) Description 05/15/2024 3:30 PM EST Office Visit Radiation Oncology at [address] [phone] Patsy Shelton MD [facility] [place] [address] documented as of this encounter Visit Diagnoses Diagnosis Endometrial cancer Malignant neoplasm of corpus uteri, except isthmus Endometrial adenocarcinoma Malignant neoplasm of corpus uteri, except isthmus documented in this encounter Care Teams Brilliandeer Looper Relationship Specialty Start Date End Date Maya Burden MD [address] [place] [address] PCP - General 05/27/10 01/23/19 documented as of this encounter
--- OUTSIDE RECORDS SUMMARY | 2024-04-28 01:59 | XMS_ITS | Encounter Summary ---
Author Organization [facility] Address [facility] [place] [address] Care Team Providers Care Solder Making Supervisor Name Role Phone Maya Gambino MD Primary Care Provider Encounter Details Date Type Department Care Team (Latest Contact Info) Description 03/28/2015 1:33 PM EDT - 03/29/2015 2:07 PM EDT [place] [phone] Anthony Johns MD [facility] [place] [address] Discharge Disposition: Home Social History Tobacco Use [...] Myesha Santizo Patient Age: 69 y.o. Language: Martiniquais Race: White Ethnicity: Not nor Admit date: 03/28/2015 Discharge date and time: 03/29/2015 Attending Physician: Anthony Johns MD Discharge Physician: Anthony Johns MD Follow-up Recommendations for Providers: Follow up appointment with Dr. Johns 04/23/15 at 11:00 AM Inpatient Provider Contact Information: Dr. Johns, [facility] Gynecologic Oncology, Discharge Diagnoses (Hospital Problems) [...] (FIGO grade 1) Pelvic U/S 01/30/15 from showed a thickened endometrial stripe (no measurement [...] at 11:00 AM Gynecology Oncology phone number: [phone] Call your doctor if you develop: --A [...] 11:00 AM Anthony Johns MD Gynecologic Oncology [phone] Discharge References/Attachments None Provider Contact Information: MAYA GAMBINO MD (General) [phone] documented in this encounter Discharge Instructions * Patient Instructions* Aliyah Izaguirre PA - 03/28/2015 4:25 PM EDT Images from the original note were not included. PATIENT DISCHARGE INSTRUCTIONS Follow up appointment with Dr. 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 Interval Note I have reviewed [...] Outcome (s) achieved Date Met: 03/29/15 03/29/15 0800 03/29/15 1225 Individualization Individualize the Plan of Care: [...] Outcome: Ongoing (Interventions Implemented as Appropriate) 03/29/15 0340 Safety Interventions Isolation Precautions standard precautions maintained Infection Prevention rest/sleep promoted Coping/Psychosocial Response Interventions Counseling emotional support provided Goal: Discharge Needs Assessment Outcome: Ongoing (Interventions Implemented as Appropriate) 03/29/15 0340 Discharge Needs Assessment Concerns to be Addressed no discharge needs identified Readmission Within the Last 30 Days no previous admission in last 30 days Equipment Needed After Discharge none Current Health Anticipated Changes Related to Illness none Self-Care Equipment Currently Used at Home none Living Environment Transportation Available none * Op Note - Anthony Johns MD - 03/28/2015 5:48 PM EDT [facility] Operative Note Patient Name: Myesha Santizo : [id number] MR#: [id number] Case Date: 03/28/2015 Surgeon: Surgeon(s) and Role: [...] was referred by Goldie Moore MD [address] [place] [address] for a new diagnosis of grade 1 [...] and a 12-mm right upper quadrant assistant professor of psychology port were placed in the usual locations [...] EST Office Visit Radiation Oncology at [address] [phone] Patsy Shelton MD [facility] [place] [address] documented as of this encounter Procedures Procedure Name Priority Date/Time Associated Diagnosis Comments HAND I TUBE BENDER SCAN 03/30/2015 12:00 AM EDT POCT GLUCOSE [...] in this encounter Results * SCAN DOC: HAND I TUBE BENDER (03/30/2015 12:00 AM EDT) Anatomical Region Laterality Modality Other Scanning Provider MEDIA MGR SCAN EXT O RDR/RSLT * POCT Glucose (03/29/2015 7:46 AM EDT) Glucose, POC 125 65 - 199 mg/dL [facility] Comment: Supplemental ranges: <140 mg/dL before [...] HEMATOLOGY ORDERABLE S CERJUAN MILLENNIUM * (ABNORMAL) Hemogram (03/29/2015 4:59 [...] Lab Anthony Johns MD [facility] * (ABNORMAL) Basic Metabolic Panel (non-fasting) (03/29/2015 4:59 AM EDT) [facility] [address] Glucose 165 65 - 199 mg/dL CERNER MILLENNIUM Comment:Diabetes: >=200 mg/d L plus symptoms Blood Urea Nitrogen 13 8 - 18 mg/dL CERNER MILLENNIUM Creatinine 1.03 0.70 - 1.20 mg/dL CERNER MILLENNIUM Comment: Please note that the pediatric reference intervals supplied above were not validated at [facility]. Results from pediatric patients should be interpreted [...] the following links into your internet browser. [email or web address] Blood specimen (specimen) 03/29/2015 4:59 AM EDT 03/29/2015 5:46 AM EDT Narrative Resulting Agency Comment Spec In Lab Anthony Johns MD CHEMISTRY ORDERABLES Performing Organization Address [facility] Co de Phone Number [facility] * POCT Glucose (03/28/2015 8:38 PM EDT) Glucose, POC 177 65 - 199 mg/dL [facility] Comment: Supplemental ranges: <140 mg/dL before meals <180 mg/dL all other times of the day Blood specimen (specimen) 03/28/2015 8:38 PM EDT 03/28/2015 8:38 PM EDT Anthony Johns MD POINT OF CARE TEST O RDERABLES Performing Organization Address [facility] Co de Phone Number [facility] * Surgical Pathology Report (03/28/2015 4:55 PM EDT) Final Diagnosis The signing pathologist has (i) examined the relevant preparation(s) for the specimen(s) and (ii) rendered or confirmed the diagnosis(es). Accession Number: [id number] ?Location: BP; BP10; B . ? 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 04/03/15 [facility] 04/03/15 Verified by: ? Shane [...] 04/02/15 [facility] 04/02/15 Verified by: ? Lenny OHBBS, Shane Maurice ?Pathologist ?(Electronic Signature) The attending pathologist whose signature appears on this report has reviewed all diagnostic slides and has edited the gross and/or microscopic portion of the report in rendering the final pathologic diagnosis. DISCUSSION Immunohistochemical HNPCC studies are pending and a supplemental report will follow. Scanned slides: [id number] CLINICAL INFORMATION Specimen Submitted: A - [...] Myometrium: Trabecular; 1.5 cm in thickness. Serosa: [place], smooth and glistening. Cervix: 2.5 cm in [...] is surfaced by fibrous adhesions. SECTIONS/PROCESSING: A licensing representative section of the tumor is submitted for frozen section as FS 1. ??A licensing representative section of the TRAV is submitted [...] studies, if any. 04/03/2015 9:11 AM EDT [facility] Uterine Corpus 03/28/2015 4: 55 PM EDT 03/28/2015 4:55 PM EDT Anthony Johns MD PATHOLOGY/CYTOLOGY O JORGE LAURE THOMPSON [facility] [place] [address] * Specimen to Pathology (surgical or derm) (03/28/2015 4:53 PM EDT) AP Specimen 03/28/2015 4:53 PM EDT 03/28/2015 4:53 PM EDT Narrative ORIONJUAN THOMPSON - 03/28/2015 4:53 PM EDT Specimen requisition ordered. ??Separate Pathology report to follow Anthony Johns MD PATHOLOGY/CYTOLOGY O JORGE Performing Organization Address City/State/[facility] Co de Phone Number LAURE THOMPSON * POCT Glucose (03/28/2015 2:03 PM EDT) Glucose, POC 119 65 - 199 mg/dL [facility]OM[facility] Comment: Supplemental ranges: <140 mg/dL before meals <180 mg/dL all other times of the day Blood specimen (specimen) 03/28/2015 2:03 PM EDT 03/28/2015 2:03 PM EDT Anthony Johns MD POINT OF CARE TEST O JORGE Performing Organization Address City/[facility] Co de Phone Number LAURE THOMPSON documented [...] Starting on Celina 03/28/15 at 1430, Until Wed03/28/15 at 2033, Day of Surgery (Day of [...] Oral, EVERY 4 HOURS PRN, Starting on Celina 03/28/15 at 1836, Until Wed03/29/15 at 1612, Pain, [...] Celina 03/28/15 at 2330, Until Discontinued, Routine 2330 (Not [...] EVERY 5 MIN PRN, Pain, Starting on Celian 03/28/15 at 1759, Until Celina 03/28/15 at [...] Routine documented in this encounter Care Teams Solder Making Supervisor Relationship Specialty Start Date End Date Maya Gambino MD [address] [place] [address] PCP - General 05/27/10 01/23/19 documented as of this encounter
--- OUTSIDE RECORDS SUMMARY | 2024-04-28 01:59 | XMS_ITS | Encounter Summary ---
Author Organization [facility] Address [facility] [place] [address] Care Team Providers Care [employer] Utility Supervisor Name Role Phone Maya Burden MD Primary Care Provider [phone] Reason for Visit * Reason Comments Establish Care Encounter Details Date Type Department Care Team (Late st Contact Info) Description 03/01/2015 9:00 AM EDT Office Visit [place] [id number] Anthony Belle MD [facility] [place] [address] Endometrial adenocarcinoma; Morbid obesity with BMI of [...] in this encounter Progress Notes * Kelsey Hernnadez A - 03/01/2015 9:19 AM EDT Division of Gynecologic Oncology Fatou Giles MD [facility] Ingrid Mcallister MD [facility] [place] [address] New Outpatient Visit: Reason for visit :Myesha Santizo is being seen in the clinic today at the request of Goldie Mortensen Md [address] [place] [address] for the evaluation of endometrial adenocarcinoma. I [...] (FIGO grade 1) Pelvic U/S 01/30/15 from [facility] Endometrial stripe is thickened, no [...] The pathology was not reviewed here at [facility]. Based on these findings, a decision was [...] you for referring this hubert patient to [facility] for her cancer care. I will keep you apprised of her progress. Patient was seen and evaluated with Dr. Belle, Therapy Aide Oncologist, with whom the plan was formulated. [...] EST Office Visit Radiation Oncology at [address] [phone] Patsy Shelton MD [facility] [address] documented as of this encounter Procedures Procedure [...] MD HEMATOLOGY ORDERABLE S Performing Organization Address [facility] Co de Phone Number CERNER MILLENNIUM * (ABNORMAL) Hemogram (03/01/2015 11:43 [...] MD HEMATOLOGY ORDERABLE S Performing Organization Address [facility] Co de Phone Number CERJUAN FERRERAENNIUM * Electrolytes panel (03/01/2015 11:43 AM [...] Belle MD CHEMISTRY ORDERABLES Performing Organization Address City/[facility] Co de Phone Number CERJUAN FERRERAENNIUM * (ABNORMAL) Creatinine (03/01/2015 11:43 AM EDT) Creatinine 0.97 0.70 - 1.20 mg/dL CERNER MILLENNIUM Comment: Please note that the pediatric reference intervals supplied above were not validated at [facility]. Results from pediatric patients should be interpreted [...] the following links into your internet browser. [email or web address] Blood specimen (specimen) 03/01/2015 11:43 AM EDT 03/01/2015 12:15 PM EDT Narrative Resulting Agency Comment Spec In Lab Anthony Belle MD CHEMISTRY ORDERABLES Performing Organization Address City/[facility] Co de Phone Number LAURE DAVIDSONIUM * BUN (03/01/2015 11:43 AM EDT) Blood Urea Nitrogen 18 8 - 18 mg/dL CERNER MILLENNIUM Blood specimen (specimen) 03/01/2015 11:43 AM EDT 03/01/2015 12:15 PM EDT Narrative Resulting Agency Comment Spec In Lab Anthony Belle MD CHEMISTRY ORDERABLES [facility] documented in this encounter Visit Diagnoses Diagnosis Endometrial adenocarcinoma Malignant neoplasm of corpus uteri, except isthmus Morbid obesity with BMI of 40.0-44.9, adult Morbid obesity documented in this encounter Care Teams [employer] Utility Supervisor Relationship Specialty Start Date End Date Maya Burden MD [address] [place] [id number] PCP - General 05/27/10 01/23/19 documented as of this encounter
[2024-04-28 12:51] LABS: ESR 13 mm/hr (0-30)
[2024-04-28 13:32] LABS: TSH (W/Ref FT4) 2.95 uIU/mL (0.36-3.74); Vitamin B12 554 pg/mL (193-986)
[2024-05-01 10:39] LABS: Syphilis Serology (RPR) Negative (Negative)
== END 2024-04-28 01:52 | disposition home or self-care (01) ==
LOC: LOS 01:51
PROVIDERS: PCP Family Medicine; Visit Provider Family Medicine
DX: R51.9 Headache, unspecified (principal); D64.9 Anemia, unspecified; R41.3 Other amnesia; E03.9 Hypothyroidism, unspecified; E11.9 Type 2 diabetes mellitus without complications; Z23 Encounter for immunization
CPT/HCPCS: 36415; 85652; 82607; 84443; 86592

== ENCOUNTER 2024-09-28 10:05 | Outpatient (CLI) | payer OTHER, SELFPAY ==
--- NOTE | 2024-09-28 | DI.RAD_ITS ---
Exam(s) XR HIP RT COMPLETE AP PELVIS EXAM: XR HIP RT COMPLETE AP PELVIS CLINICAL HISTORY: PAIN IN R HIP, M25.551. TECHNIQUE: 2D digital imaging was performed. Two views COMPARISON: CR XR DEXA BONE DENSITY W/WO RONEL from 03/18/2023 FINDINGS: BONES: No acute fracture is present. No bony destructive lesion is seen. Enthesophytes are present at the iliac wings and greater trochanters. JOINTS: No dislocation present. The hip joint spaces are maintained. There is mild acetabular spur ring. There is some spurring at the SI joints. There is severe degenerative changes in the lower daisha mbar spine. SOFT TISSUE: Normal. IMPRESSION: Mild degenerative changes of both hips. DATA REPOSITORY: RADIATION DOSE DELIVERED:
== END 2024-09-28 10:25 ==
LOC: DI 10:05
PROVIDERS: PCP Family Medicine; Visit Provider Radiology Radiation Oncology
DX: M16.0 Bilateral primary osteoarthritis of hip (principal)
CPT/HCPCS: 73502

== ENCOUNTER 2025-03-29 01:21 | Outpatient (CLI) | payer OTHER, SELFPAY ==
--- NOTE | 2025-03-29 | DI.MAMMO_ITS ---
Exam(s) MG MAMMO SCREENING 60 MIN DUR EXAM: MG MAMMO SCREENING 60 MIN DUR CLINICAL HISTORY: LT BREAST CA C50.912 ANEMIA D64.9 AROMATASE USE Z79.811 TECHNIQUE: Mammograms were interpreted according to the usual protocol including computer analysis with CAD system, tomosynthesis and C-view imaging. COMPARISON: 2014 through 2023 FINDINGS: Status post left mastectomy. The right breast is composed of heterogeneously dense fibroglandular densities, Breast Density category C. No suspicious masses or suspicious microcalcifications are seen. Coarse calcifications are again noted in the right breast. No skin thickening or abnormal axillary lymph nodes are seen. There has been no significant change from prior exams. IMPRESSION: BI-RADS Category 2 - Negative Mammogram with benign findings. Yearly screening mammography is recommended. Breast Density: Category C - The breasts are heterogeneously dense, which may obscure small masses. Breast density Category C or D implies that the patient has dense breast tissue. Dense breast tissue can make it harder to find cancer on a mammogram. Dense breast tissue is also associated with an increased risk of breast cancer. This information about the result of the mammogram report was provided to the patient to raise their awareness. Use this report when you speak with the patient about their risks for breast cancer, which includes their family history. At that time, you may recommend additional screening tests (Ultrasound or MRI) as these tests may add significant information. A negative radiographic report should not delay biopsy if a dominant or clinically suspicious mass is present. Up to ten percent of cancers are not identified on mammography. A negative report may reinforce clinical impression. Adenosis and dense breasts may obscure an underlying neoplasm. False positive reports average 6 to 10%.
== END 2025-03-29 01:41 ==
LOC: DI 01:21
PROVIDERS: PCP Family Medicine; Visit Provider Nurse Practitioner
DX: Z12.31 Encounter for screening mammogram for malignant neoplasm of breast (principal); C50.912 Malignant neoplasm of unspecified site of left female breast; D64.9 Anemia, unspecified; Z79.811 Long term (current) use of aromatase inhibitors
CPT/HCPCS: 77063; 77067

== ENCOUNTER 2025-04-19 05:20 | Outpatient (CLI) | payer OTHER, SELFPAY ==
[2025-04-19 09:41] LABS: Abs Immature Grans 0.03 10^3/uL (0.0-0.06); HCT 36.0 % (36.0-46.0); HGB 11.6 g/dL (11.2-15.7); Immature Grans % 0.4 %; MCH 28.6 pg (27.0-33.0); MCHC 32.2 % (32.0-36.0); MCV 89 fL (80-95); MPV 10.9 fL (8.0-11.0); Platelet Count 214 10^3/uL (130-400); RBC 4.05 10^6/uL (3.93-5.22); RDW 14.0 % (11.7-14.6); RDW-SD 45.6 fL; WBC 6.67 10^3/uL (4.4-10.8)
[2025-04-19 10:24] LABS: ALT 21 U/L (14-59); AST 12 U/L (15-37); Albumin 3.7 g/dL (3.4-5.0); Alkaline Phosphatase 83 U/L (46-116); Anion Gap 10.5 mmol/L (3-11); BUN 21 mg/dL (7-18); Bilirubin, Total 0.3 mg/dL (0.2-1.0); CO2 27.5 mmol/L (21.0-32.0); Calcium 8.9 mg/dL (8.5-10.1); Chloride 98 mmol/L (98-107); Estimated GFR 35.45 (mL/min/1.73m2); Ferritin 65 ng/mL (8-252); Glucose 142 mg/dL (74-106); Potassium 4.2 mmol/L (3.5-5.1); Sodium 136 mmol/L (136-145); Total Protein 7.4 g/dL (6.4-8.2)
== END 2025-04-19 05:21 | disposition home or self-care (01) ==
PROVIDERS: PCP Family Medicine; Visit Provider Nurse Practitioner
CPT/HCPCS: 36415; 80053; 82728; 85025

== ENCOUNTER 2025-04-19 05:46 | Outpatient (CLI) | payer OTHER, SELFPAY ==
--- NOTE | 2025-04-19 | DI.DEXA_ITS ---
Exam(s) XR DEXA BONE DENSITY W/WO RONEL EXAM: XR DEXA BONE DENSITY W/WO RONEL CLINICAL HISTORY: Z79.811,C50.912,D64.9 care home med use,anemia,Hormone receptor + TECHNIQUE: [employer] C densitometer analysis of left hip, lumbar spine and left forearm. Lateral survey image of the thoracic and lumbar spine. COMPARISON: CR XR DEXA BONE DENSITY W/WO RONEL from 03/18/2023 CR XR HIP RT COMPLETE AP PELVIS from 09/28/2024 FINDINGS: Lateral view of the thoracic and lumbar spine shows no evidence of compression fractures. There are degenerative changes and mild scoliosis. Bone mineral density measurements of the lumbar spine correspond to a total T- score of 2.8, in the normal range. This is not significantly changed from prior. Bone mineral density measurements of the left hip correspond to a total T-score of 0.8, 5.5 percent increase from 2023. The femoral neck T-score is -1.1, in the mildly osteopenic range.. Theleft forearm bone mineral density measurements correspond to a T-score of the distal 3rd of -1.3, in the mildly osteopenic range. This represents a 2.8 percent decrease compared with 2023. IMPRESSION: Normal bone mineral density of the spine. Osteopenia of the hip and forearm.
== END 2025-04-19 06:06 ==
LOC: DI 05:46
PROVIDERS: PCP Family Medicine; Visit Provider Nurse Practitioner
DX: C50.912 Malignant neoplasm of unspecified site of left female breast (principal); D64.9 Anemia, unspecified; Z79.811 Long term (current) use of aromatase inhibitors; M85.88 Other specified disorders of bone density and structure, other site
CPT/HCPCS: 77080